=== PATIENT | male | born 1960 ===

== ENCOUNTER 2024-08-29 14:06 | Outpatient (CLI) | payer MEDICAID, SELFPAY ==
--- OUTSIDE RECORDS SUMMARY | 2024-08-29 14:09 | XMS_ITS | Continuity of Care Document ---
Author Organization [facility] Address [address] [place] [address] Care Team Providers Care Curriculum Coach Name Role Phone Astrid Mcdonough Primary Care Physician Encounter [facility] Date(s): 12/07/23 - 12/07/23 [facility] [address] [place] [address] Encounter Diagnosis Atrial fibrillation(Discharge Diagnosis) - 12/07/23 Hypertension(Discharge Diagnosis) - 12/07/23 Hyperlipidemia(Discharge Diagnosis) - 12/07/23 Paroxysmal atrial fibrillation(Final) - Essential (primary) hypertension(Final) - Hyperlipidemia, unspecified(Final) - Discharge Disposition: Home or Self Care Attending Physician: Anat Cross NP Allergies, Adverse Reactions, Alerts No Known Medication Allergies Substance Reaction Severity Status allopurinol Skin rash Unknown Active ketoconazole 1 Skin rash Unknown Active 1patient states the rash was from allopurinol not this, and he has used it without issue.%0ALast modified by Alysia Alcaraz 12-24-2020, 08:31 Assessment and Plan Extracted from: Title:Cardiology Clinic - Office Visit Note Auth or:Anat Cross NP Date:12/07/23 Atrial fibrillation??I48.91 Actions: COMPLETED - [id number] Office/Outpatient Visit - Established Patient, Level 3 (20-29 min)., 12/07/23 9:02:00 EST, Atrial fibrillation COMPLETED - Follow-Up Appointment Request [facility], 12/07/23 9:20:00 EST, In Approximately, [facility], 12/07/23 9:20:00 EST FUTURE - Follow-Up Appointment Request [facility], *Est. 03/08/24 +/- 21 days, Future Order, In Approximately, [facility] COMPLETED - Referral Management, Medical Service: Cardiology, Reason: To for Tikosyn admission as soon as can please. Symptomatic., Start: 12/07/23 ?? Hyperlipidemia??E78.5 ?? Hypertension??I10 ?? Additional Actions: ORDERED - atorvastatin, 40 mg = 1 tab, Oral, Daily, # 90 tab, 3 Refill(s), Pharmacy: [id number], 179.07, cm, 12/07/23 9:04:00 EST, Height, 117.75, kg, 12/07/23 9:12:00 EST, Weight Dosing DISCONTINUED - atorvastatin, 20 mg = 1 tab, Oral, Daily, # 90 tab, 2 Refill(s), Pharmacy: [facility] Future Appointments Future Scheduled Tests Radiology* XR Spine Lumbosacral 2 or 3 Views 12/25/22 Immunizations Given and Recorded Vaccine Date Status Refusal Reason influenza virus vaccine, inactivated 1 08/22/22 Gi jakob influenza virus vaccine, inactivated 07/08/13 Avery rded SARS-CoV-2 (COVID-19) mRNA-1273 vaccine 02/01/21 R ecorded SARS-CoV-2 (COVID-19) mRNA-1273 vaccine 01/07/21 R ecorded tetanus/diphth/pertuss (Tdap) adult/adol 06/21/12 Recorded Not Given Vaccine Date Status Refusal Reason zoster vaccine, inactivated 2 04/19/19 Not Given Patient Refuses 1Result Comment: verified by [facility]. 2Result Comment: Patient Declined Medications AAA - Misc Prescription 90 EA, TAKE ONE TABLET BY MOUTH EVERY DAY, 0 Refill(s) Start Date: 03/19/23 Status: Ordered atorvastatin 40 mg oral tablet 40 mg = 1 tab, Oral, Daily, # 90 tab, 3 Refill(s), Pharmacy: [facility], 179.07, cm, 12/07/23 9:04:00 EST, Height, 117.75, kg, 12/07/23 9:12:00 EST, Weight Dosing Start Date: 12/07/23 Status: Ordered Combivent Respimat CFC free 20 mcg-100 mcg/inh inhalation aerosol 1 puffs, Inhale, As Directed, # 4 g, 0 Refill(s) Start Date: 03/19/23 Status: Ordered DULoxetine 30 mg oral delayed release capsule 30 mg = 1 cap, Oral, BID, # 180 cap, 3 Refill(s), Pharmacy: [facility] Start Date: 07/11/23 Stop Date: 07/05/24 Status: Ordered Eliquis 5 mg oral tablet 5 mg = 1 tab, Oral, BID, # 180 tab, 3 Refill(s), Pharmacy: [facility], 180.34, cm, 07/23/23 9:23:00 EDT, Height, 117.93, kg, 09/08/23 10:25:00 EST, Weight Dosing Start Date: 10/22/23 Stop Date: 10/16/24 Status: Ordered ergocalciferol 1.25 mg (50,000 intl units) oral capsule 50,000 IntlUnit = 1 cap, Oral, every 2 wk, as directed, # 7 cap, 3 Refill(s), Pharmacy: [facility] Start Date: 07/22/22 Stop Date: 07/17/23 Status: Ordered febuxostat 40 mg oral tablet 1 tab, Oral, Daily, # 90 tab, 3 Refill(s), Pharmacy: [facility], 180.34, cm, 07/23/23 9:23:00 EDT, Height, 117.93, kg, 09/08/23 10:25:00 EST, Weight Dosing Start Date: 09/11/23 Stop Date: 09/05/24 Status: Ordered HYDROcodone-acetaminophen 10 mg-325 mg oral tablet 1 tab, Oral, every 4 hr, PRN as needed for pain, Take 1 tablet every 4-6 hours as needed for severepain. Recommendations to decrease to 5 tablets daily for upcoming wean., # 168 tab, 0 Refill(s), Pharmacy: [facility], 180.34, cm, 07/23/23 9:23:00 EDT, Height, 117.93, kg, 09/08/23 10:25:00 EST, Weight Dosing Start Date: 10/22/23 Stop Date: 11/19/23 Status: Ordered HYDROcodone-acetaminophen 10 mg-325 mg oral tablet 1 tab, Oral, every 4 hr, PRN as needed for pain, Take 1 tablet every 4-6 hours as needed for severepain. Minimize use to prepare for weaning, # 152 tab, 0 Refill(s), Pharmacy: [facility], 179.07, cm, 11/18/23 11:12:00 EST, Height, 119.65, kg, 12/01/23 9:53:00 EST, Weight Dosing Start Date: 12/01/23 Stop Date: 12/29/23 Status: Ordered HYDROcodone-acetaminophen 10 mg-325 mg oral tablet 1 tab, Oral, every 4 hr, PRN as needed for pain, Take 1 tablet every 4-6 hours as needed for severepain. Minimize use to prepare for weaning, # 152 tab, 0 Refill(s), Pharmacy: [facility], 179.07, cm, 11/18/23 11:12:00 EST, Height, 119.65, kg, 12/01/23 9:53:00 EST, Weight Dosing Start Date: 12/01/23 Stop Date: 12/29/23 Status: Ordered HYDROcodone-acetaminophen 10 mg-325 mg oral tablet 1 tab, Oral, every 4 hr, Take 1 tablet every 4-6 hours as needed for severe pain. Minimize use to prepare for weaning, # 152 tab, 0 Refill(s), Pharmacy: [facility], 179.07, cm, 11/18/23 11:12:00 EST, Height, 119.65, kg, 12/01/23 9:53:00 EST, Weight Dosing Start Date: 12/01/23 Stop Date: 12/29/23 Status: Ordered ketoconazole 2% topical cream 1 ignacio, Topical, BID, to affected area. Anti-fungal for yeast infection., # 60 g, 0 Refill(s), Pharmacy: [facility] Start Date: 08/22/22 Stop Date: 09/19/22 Status: Ordered losartan 50 mg oral tablet 50 mg = 1 tab, Oral, Daily, # 90 tab, 2 Refill(s), Pharmacy: [facility] Start Date: 03/19/23 Status: Ordered Metoprolol Succinate ER 50 mg oral tablet, extended release 50 mg = 1 tab, Oral, Daily, # 90 tab, 3 Refill(s), Pharmacy: [facility], 180.34, cm, 07/23/23 9:23:00 EDT, Height, 117.93, kg, 09/08/23 10:25:00 EST, Weight Dosing Start Date: 09/14/23 Stop Date: 09/08/24 Status: Ordered Narcan 4 mg/0.1 mL nasal spray 1 sprays, Nasal, Once, PRN other (see comment), may repeat every 2 to 3 minutes until patient responds, # 2 EA, 0 Refill(s), Pharmacy: [facility] Start Date: 09/25/22 Status: Ordered sildenafil 100 mg oral tablet 1 tab, Oral, Daily, # 10 tab, 3 Refill(s), Pharmacy: [facility], 180.34, cm, 07/23/23 9:23:00 EDT, Height Start Date: 08/26/23 Stop Date: 12/24/23 Status: Ordered traZODone 50 mg oral tablet 1 tab, Oral, every night at bedtime, # 90 tab, 3 Refill(s), Pharmacy: [facility] Start Date: 03/19/23 Stop Date: 03/13/24 Status: Ordered triamcinolone 0.025% topical cream 1 ignacio, Topical, BID, PRN itching/rash, apply a thin film to affected area Steroid cream for itchingand redness., # 60 g, 0 Refill(s), Pharmacy: [facility] Start Date: 08/22/22 Stop Date: 09/05/22 Status: Ordered zolpidem 10 mg oral tablet 10 mg = 1 tab, Oral, every night at bedtime, swallow whole do not crush or chew, # 28 tab, 2 Refill(s), Pharmacy: [id number], 179.07, cm, 11/18/23 11:12:00 EST, Height, 119.65, kg, 12/01/23 9:53:00 EST, Weight Dosing Start Date: 12/01/23 Stop Date: 02/23/24 Status: Ordered Problem List Condition Confirmation Course Effective Dates Status Health Status Informant Adenomatous polyp of colon Confirmed Active Arthritis Confirmed 03/29/21 Active Atrial fibrillation Confirmed Active Benign neoplasm of cerebral meninges Confirmed Active Bilateral shoulder joint pain Confirmed 05/02/21 Active Carpal tunnel syndrome Confirmed Active Degeneration of cervical intervertebral disc Confirmed Active Chronic gouty arthritis Confirmed 10/19/18 Active Chronic pain Confirmed Active Claustrophobia Confirmed 04/19/19 Active Diverticulosis of colon Confirmed 03/17/19 Active Dupuytren's contracture Confirmed 10/11/20 Active Herniation of lumbar intervertebral disc with sciatica Confirmed Active Hyperglycemia Confirmed 12/24/18 Active Hyperlipidemia Confirmed Active Hypertensive disorder Confirmed Active Nocturnal hypoxemia Confirmed Active Insomnia Confirmed Active Insulin resistance Confirmed 10/11/20 Active Lyme disease Confirmed Active Microscopic hematuria Confirmed 01/03/21 Active Moderate persistent asthma Confirmed Active Muscle pain Confirmed Active Myalgia/myositis - multiple Confirmed 10/11/20 Active Obstructive sleep apnea syndrome Confirmed Active Obstructive sleep apnea Confirmed Active Pain of left hip joint Confirmed 11/14/19 Active Medication management Confirmed Active Psychophysiologic insomnia Confirmed 07/12/18 Active Psychophysiological insomnia Confirmed Active Psychophysiologic insomnia Confirmed Active Sciatica Confirmed Active Tinea corporis Confirmed Active Transient cerebral ischemia Confirmed Active Vitamin D deficiency Confirmed Active Procedures Procedure Date Related Diagnosis Body Site Status Injection 1 11/07/20 Completed Total replacement of left hip joint 04/11/20 Completed Hemilaminectomy 2 10/27/19 Complet ed Lumbar microdiscectomy 10/27/19 Co mpleted Colonoscopy 3 03/08/19 Completed Colonoscopy 10/11/15 Completed Closed reduction and percuta neous pinning-left proximal phalanx fracture 02/07/13 Completed Carpal tunnel release 10/11/11 Com pleted C5-C6 and C6-C7 diskectomy and fusion 12/24/08 Completed Carpal tunnel release 10/11/08 Com pleted ORIF - Open reduction and in ternal fixation of fracture 4 Completed 1Xiaflex injection right ring finger with manipulation next day for Dupuytren's contracture. [id number] 3diverticulosis of colon; Repeat 5 years. 11/19/2015 one descending colon sessile polyp and diverticular changes, otherwise normal exam 4ORIF right femur-05/31/2007. ORIF right ankle Vital Signs Most recent to oldest [Reference Range]: 1 Peripheral Pulse Rate [60-100 bpm] 86 bp m (12/07/23 9:04 AM) Blood Pressure [90-140/60-90 mmHg] 138/6 2mmHg (12/07/23 9:04 AM) Mean Arterial Pressure, Cuff [65-140 mmH g] 87 mmHg (12/07/23 9:04 AM) Weight 117.75 kg (12/07/23 9:04 AM) Weight Measured (lbs) 259.594 lb (12/07/23 9:04 AM) Weight Dosing 117.750 kg (12/07/23 9:04 AM) Height 179.07 cm (12/07/23 9:04 AM) Height/Length Measured (inches) 70.5 inc h (12/07/23 9:04 AM) BSA Measured 2.42 m2 (12/07/23 9:04 AM) Body Mass Index 36.72 kg/m2 (12/07/23 9:04 AM) Social History Social History Type Response Tobacco Never tobacco user T obacco Use:. Sex Male Physician Outpatient Note * Anat Cross [employer]OL OFFICER: PERFORM Event Display: Office Clinic Note Physician Authored Date: [id number] BRENDA JAVED :1960 Age:63 years Sex:Male Visit Date:12/07/2023 Primary Care Physician: Astrid Mcdonough MD History of Present Illness Cardiac Problems: 1.Chronic Atrial fibrillation 2.Hypertension-atorvastatin 20mg, Eliquis 5mg BID, losartan 50mg, metoprolol succinate 75mg 3.Hyperlipidemia 4.TYRON ?? This is a 63-year-old gentleman that I last saw in the office on 11/04/2019 for??for hypertensionand atrial fibrillation.?? He was symptomatic with lightheadedness and palpitations??daily so we discussed getting him back into a sinus rhythm??potentially with an antiarrhythmic such as flecainide so we ordered a stress and echo??to rule out coronary artery disease.?? Both tests were reassuring.?? However at her last appointment??he reported 6 out of 10??nonradiating chest pain??and dyspnea when he mixed up his??metoprolol dose and took less than was prescribed??for??3 days.?? We wanted to rule out coronary artery disease??and not give him flecainide??until we are absolutely sure??this was ruled out so we ordered a left heart catheterization at [facility]. ??He is here today??to follow-up??on his left heart catheterization??and potentially start flecainide if this does not show coronary artery disease, or??speak about sotalol or Tikosyn. Left heart catheterization at [facility].?? Left main free of disease, LAD with 40% stenosis, mild diffuse in diagonal 1, mild diffuse in left circumflex, mild diffuse in RCA.?? Nonobstructive coronary artery disease, elevated left ventricular end-diastolic pressure. ?? He states that he has been extremely symptomatic in regards to his atrial fibrillation.?He states I feel A-fib a lot, I feel blood??going to my head when I stand up??and I will just be pulsating??and then I will get dizzy for a little bit.' ??He denies chest pain, syncope,??PND, and edema. ??He states that his breathing is typically okay??unless he has to walk up stairs. ??He does get shortof breath going up the stairs, and this can be every single time or it can be??every other, but he is??experiencing dyspnea on exertion.?? He does continue to??report that about once a day he will beshort of breath with only doing activity around the house,??he will be walking around and noticed that he is breathing a little bit harder. ?? He is mainly walking daily??to the store or around his home for about 10 minutes of uninterrupted time. ??During this exercise he denies signs of ischemia such as chest pain or shortness of breath.?? He is not routinely taking his blood pressure at home but does have an arm blood pressure cuff??he can use.?? Typically at his other doctors appointments he is averaging in the 120 systolic. Review of Systems A complete review of systems is negative other than as noted in the history of present illness. Physical Exam Vitals & Measurements HR:??86??(Peripheral)?? BP:??138/62?? SpO2:??94%?? HT:??179.07??cm?? WT:??117.75??kg?? BMI:??36.72?? BSA:??2.42?? HEENT: Normocephalic, atraumatic Respirations: Clear to auscultation bilaterally with no wheezes rubs or rhonchi Cardiac: Regular rate and rhythm, normal S1, S2, no murmurs gallops or rubs Abdomen: Nontender nondistended normal active bowel sounds Extremities: 2+ dorsalis pedis pulses bilaterally with no significant edema Medical Decision Making [place] [facility] [place] atrial fibrillation [place] Eliquis, poorly controlled of 100 bpm, hypertension on metoprolol, asymptomatic with 4 METS of activity, obstructive sleep apnea.?? Recommend increase metoprolol to 50 mg daily no indication for statin or an aspirin, felt atrial fibrillation likelyrelated to his history of hypertension, if symptoms or evidence of volume overload an echocardiogram would be recommended. 05/08/2023.?? Zio: Atrial fibrillation (90% burden, longest continuous period of 12 days) with rare PACs and rare PVCs over 14-day monitoring period.?? There were no significant arrhythmias other thanAF.?? Average heart rate with AF was less than 100 bpm, with minimal variability.?? Symptoms correlated with continuous AF at normal average rate.?? Paroxysmal but predominant AF, with adequate rate control. 07/21/2023:EKG:Atrial fibrillation with ventricular rate of 81 bpm, IVCD with QRS of 157 ms.?? Minimal ST depression in anterolateral leads. 08/18/2023.?? Treadmill stress test:Ambulated for 3 minutes and 56 seconds, [address] changes, indeterminate stress test, deconditioned with borderline [address] depression in anterior leads.?? Consider alternate stress modality such as Lexiscan nuclear stress test. 09/01/2023.?? Echocardiogram:EF of 65% with normal wall motion, diastolic indices difficult to interpret with A-fib, RA mildly dilated, LA normal, no significant valve disease, PAP normal at 28 mmHg 10/28/2023: Lexiscan:Normal myocardial perfusion with no evidence of ischemia or prior infarct. Normal LV function with normal wall motion and ejection fraction greater than 60%. 11/04/2023: EKG:Atrial fibrillation with ventricular rate of 102 bpm, IVCD with QRS duration of 117 ms 11/20/2023.?? Left heart catheterization at [facility].?? Left main free of disease, LAD with 40% stenosis, mild diffuse in diagonal 1, mild diffuse in left circumflex, mild diffuse in RCA.?? Nonobstructive coronary artery disease, elevated left ventricular end-diastolic pressure. 12/07/2023: EKG:Atrial fibrillation with ventricular rate of 105 bpm. ?? 63-year-old gentleman with paroxysmal atrial fibrillation ? Atrial fibrillation:??He is again in atrial fibrillation??in the office today, but he is properly anticoagulated with Eliquis 5 mg twice daily.?? It sounds like he is extremely symptomatic??with dizziness??and occasionally he will feel his??atrial fibrillation with palpitations.?? He did have an echocardiogram and Lexiscan stress test that were reassuring??but continuing 6 out of 10 chest painat our last visit. ??We went over his left heart catheterization that was performed on 11/20/2023 which showed nonobstructive coronary artery disease but elevated left ventricular end-diastolic pressure.?? It is recommended??for him to be back in normal rhythm, considering he is extremely symptomatic??we are referring him to [facility] for a [facility] admission. ??We went over this??admission in length today??and potential??options of an ablation or Watchman procedure if the Tikosyn admission??fails.?? I am also increasing his atorvastatin from 20 mg to 40 mg for a more cardioprotective medicationregimen considering he does have evidence??of stenosis in his LAD.?? I encouraged him to be seen inthe emergency room for any??chest pain moving forward. ? Hypertension:??He is elevated here in the office today sounds like he is well-controlled??at??other appointments. ??He does not take his blood pressure at home but does have an arm blood pressure cuff that he will??start to monitor??at home. ??I advised him to get me??averages of his blood pressure readings over the next couple of weeks, and if he is averaging over 130 systolic we should step him to increase??antihypertensives.?? I will see him again in 3 months??to check in on how he is doing, he knows to call with any questions or concerns in the meantime.?? Hopefully he will have had his Tikosyn admission at [facility]??by then.?? It was a pleasure to see Brenda. Clinic Assessment/Plan Atrial fibrillation??I48.91 Actions: COMPLETED - 79134 Office/Outpatient Visit - Established Patient, Level 3 (20-29 min)., 12/07/23 9:02:00 EST, Atrial fibrillation COMPLETED - Follow-Up Appointment Request [facility], 12/07/23 9:20:00 EST, In [facility], [facility], 12/07/23 9:20:00 EST FUTURE - Follow-Up Appointment Request [facility], *Est. 03/08/24 +/- 21 days, Future Order, In Approximately, [facility] COMPLETED - Referral Management, Medical Service: Cardiology, Reason: To for Tikosyn admission as soon as can please. Symptomatic., Start: 12/07/23 ?? Hyperlipidemia??E78.5 ?? Hypertension??I10 ?? Additional Actions: ORDERED - atorvastatin, 40 mg = 1 tab, Oral, Daily, # 90 tab, 3 Refill(s), Pharmacy: [id number], 179.07, cm, 12/07/23 9:04:00 EST, Height, 117.75, kg, 12/07/23 9:12:00 EST, Weight Dosing DISCONTINUED - atorvastatin, 20 mg = 1 tab, Oral, Daily, # 90 tab, 2 Refill(s), Pharmacy: [facility] Problem List/Past Medical History Ongoing Adenomatous polyp of colon Arthritis Atrial fibrillation Benign neoplasm of cerebral meninges Bilateral shoulder joint pain Carpal tunnel syndrome Chronic gouty arthritis Chronic pain Claustrophobia Degeneration of cervical intervertebral disc Diverticulosis of colon Dupuytren's contracture Herniation of lumbar intervertebral disc with sciatica Hyperglycemia Hyperlipidemia Hypertensive disorder Insomnia Insulin resistance Lyme disease Medication management Microscopic hematuria Moderate persistent asthma Muscle pain Myalgia/myositis - multiple Nocturnal hypoxemia Obstructive sleep apnea Obstructive sleep apnea syndrome Pain of left hip joint Psychophysiologic insomnia Psychophysiologic insomnia Psychophysiological insomnia Sciatica Tinea corporis Transient cerebral ischemia Vitamin D deficiency Historical Screening for malignant neoplasm of prostate Procedure/Surgical History ???Injection (11/08/2020)???Total replacement of left hip joint (04/12/2020)???Hemilaminectomy (10/28/2019)???Lumbar microdiscectomy (10/28/2019)???Colonoscopy (03/09/2019)???Colonoscopy (10/12/2015)???Closed reduction and percutaneous pinning-left proximal phalanx fracture (02/08/2013)???Carpal tunnel release (10/12/2011)???C5-C6 and C6-C7 diskectomy and fusion (12/25/2008)???Carpal tunnel release (10/12/2008)???ORIF - Open reduction and internal fixation of fracture Medications What How Much When Why Instructions Changed atorvastatin (atorvastatin 40 mg oral tablet) 1 tab Oral (given by mouth) Every day Pickup at [facility] Unchanged apixaban (Eliquis 5 mg oral tablet) 1 tab Oral (given by mouth) 2 times a day Duration: 90 Days Unchanged DULoxetine (DULoxetine 30 mg oral delayed release capsule) 1 Capsules Oral (given by mouth) 2 times a day Duration: 90 Days Unchanged ergocalciferol (ergocalciferol 1.25 mg (50,000 intl units) oral capsule) 1 Capsules Oral (given by mouth) Every other week Duration: 90 Days as directed ?? Unchanged febuxostat (febuxostat 40 mg oral tablet) 1 tab Oral (given by mouth) Every day Duration: 90 Days Unchanged HYDROcodone-acetaminophen (HYDROcodone-acetaminophen 10 mg-325 mg oral tablet) 1 tab Oral (given by mouth) Every 4 hours as needed for as needed for pain Duration: 28 Days Take 1 tablet every 4-6 hours as needed for severe pain. Recommendations to decrease to 5 tablets daily for upcoming wean. ?? Unchanged HYDROcodone-acetaminophen (HYDROcodone-acetaminophen 10 mg-325 mg oral tablet) 1 tab Oral (given by mouth) Every 4 hours as needed for as needed for pain Degeneration of cervical intervertebral disc Chronic pain Duration: 28 Days Take 1 tablet every 4-6 hours as needed for severe pain. ??Minimize use to prepare for weaning ?? Unchanged HYDROcodone-acetaminophen (HYDROcodone-acetaminophen 10 mg-325 mg oral tablet) 1 tab Oral (given by mouth) Every 4 hours as needed for as needed for pain Chronic pain Degeneration of cervical intervertebral disc Duration: 28 Days Take 1 tablet every 4-6 hours as needed for severe pain. ??Minimize use to prepare for weaning ?? Unchanged HYDROcodone-acetaminophen (HYDROcodone-acetaminophen 10 mg-325 mg oral tablet) 1 tab Oral (given by mouth) Every 4 hours Duration: 28 Days Take 1 tablet every 4-6 hours as needed for severe pain. ??Minimize use to prepare for weaning ?? Unchanged ipratropium-albuterol (Combivent Respimat CFC free 20 mcg-100 mcg/ inh inhalation aerosol) 1 Puffs Inhale (breathe in) As Directed Unchanged ketoconazole topical (ketoconazole 2% topical cream) 1 Application Topical (on the skin) 2 times a day Duration: 28 Days to affected area. ??Anti-fungal for yeast infection. ?? Unchanged losartan (losartan 50 mg oral tablet) 1 tab Oral (given by mouth) Every day Long-term use of high-risk medication Encounter for chronic pain management Arthritis Herniation of lumbar intervertebral disc with sciatica Degeneration of cervical intervertebral disc Unchanged metoprolol (Metoprolol Succinate ER 50 mg oral tablet, extended release) 1 tab Oral (given by mouth) Every day Hypertensive disorder Duration: 90 Days Unchanged naloxone (Narcan 4 mg/ 0.1 mL nasal spray) 1 Sprays Nasal (into the nose) Once as needed for other (see comment) Respiratory suppression may repeat every 2 to 3 minutes until patient responds ?? Unchanged Other Prescription ([facility] [place] 90 EA, TAKE ONE TABLET BY MOUTH EVERY DAY ?? Unchanged sildenafil (sildenafil 100 mg oral tablet) 1 tab Oral (given by mouth) Every day Duration: 30 Days Unchanged traZODone (traZODone 50 mg oral tablet) 1 tab Oral (given by mouth) Every night at bedtime Duration: 90 Days Unchanged triamcinolone topical (triamcinolone 0.025% topical cream) 1 Application Topical (on the skin) 2 times a day as needed for itching/rash Duration: 14 Days apply a thin film to affected area Steroid cream for itching and redness. ?? Unchanged zolpidem (zolpidem 10 mg oral tablet) 1 tab Oral (given by mouth) Every night at bedtime Duration: 28 Days swallow whole do not crush or chew ?? Pharmacy Information [facility]: [address], [place] [id number] [phone] Allergies No Known Medication Allergies allopurinol??(Skin rash) ketoconazole??(Skin rash) Social History Alcohol Current, Liquor, Daily Electronic Cigarette/Vaping Electronic Cigarette Use: Never. Home/Environment Living situation: Home/Independent. Nutrition/Health Caffeine intake amount: diet coke 1 can daily. Substance Use Current, Marijuana, Daily Tobacco Never tobacco user Tobacco Use:. Family History Other: Father. Immunizations Vaccine Date Status influenza virus vaccine, inactivated 08/22/2022 Given Comments : verified by [facility]. SARS-CoV-2 (COVID-19) mRNA-1273 vaccine 02/01/2021 Recorded SARS-CoV-2 (COVID-19) mRNA-1273 vaccine 01/07/2021 Recorded zoster vaccine, inactivated - Not Given Comments : Patient Refuses Patient Declined influenza virus vaccine, inactivated 07/08/2013 Recorded tetanus/diphth/pertuss (Tdap) adult/adol 06/21/2012 Recorded Electronically Signed on 12/07/23 09:50 AM Anat Cross NP Patient Care team information Care Team Personnel Name: Astrid Mcdonough MD Position: Physician Member Role: Informed Provider Address: Address: [address] [place] [address] [place] [address] Care Team Related Persons Name: VADIM COSTA
--- OUTSIDE RECORDS SUMMARY | 2024-08-29 14:09 | XMS_ITS | Continuity of Care Document ---
Author Organization [facility] Address [address] [place] [address] Care Team Providers Care Binding Cutter Synthetic Cloth Name Role Phone Brad De Guzman Primary Care Physician Encounter [facility] Date(s): 08/08/24 - 08/08/[address] [address] Encounter Diagnosis Opioid contract exists(Discharge Diagnosis) - 08/08/24 Discharge Disposition: Home or Self Care Attending Physician: Brad De Guzman MD Admitting Physician: Brad De Guzman MD Allergies, Adverse Reactions, Alerts No Known Medication Allergies Substance Criticality Severity Reaction Reaction Severity Status allopurinol Unable to assess criticality Unknown Skin rash Active ketoconazole 1 Unable to assess criticality Unknown Skin rash Active 1patient states the rash was from allopurinol not this, and he has used it without issue.%0ALast modified by Alysia Alcaraz 12-24-2020, 08:31 Assessment and Plan Future Appointments Diagnostic Tests Pending * Opioids and Metabolites Confirmation Panel, Urine CTOX 08/08/24 Immunizations Given and Recorded Vaccine Date Status [...] by CHANORN. 2Result Comment: Patient Declined Medications atorvastatin 40 mg oral tablet 40 mg = 1 tab, Oral, Daily, # 90 tab, 3 Refill(s), Pharmacy: [facility], 179.07, cm, 12/07/23 9:04:00 EST, Height, 117.75, kg, 12/07/23 9:12:00 EST, Weight Dosing Start Date: 12/07/23 Status: Ordered Combivent Respimat CFC free 20 mcg-100 mcg/inh inhalation aerosol 1 puffs, Inhale, As Directed, # 1 EA, 5 Refill(s), Pharmacy: [facility], 180.34, cm, 03/03/24 9:42:00 EDT, Height, 117, kg, 08/08/24 9:31:00 EDT, Weight Dosing Start Date: 08/08/24 Status: Ordered DULoxetine 30 mg oral delayed release capsule 30 mg = 1 cap, Oral, BID, # 180 cap, 3 Refill(s), Pharmacy: [facility], 180.34, cm, 249:42:00 EDT, Height, 114.05, kg, 05/17/24 9:29:00 EDT, Weight Dosing Start Date: 06/08/24 Stop Date: 06/03/25 Status: Ordered Eliquis 5 mg oral tablet 5 mg = 1 tab, Oral, BID, # 180 tab, 3 Refill(s), Pharmacy: [facility], 180.34, cm, 07/23/23 9:23:00 EDT, Height, 117.93, kg, 09/08/23 10:25:00 EST, Weight Dosing Start Date: 10/22/23 Stop Date: 10/16/24 Status: Ordered ergocalciferol 1.25 mg (50,000 intl units) oral capsule 50,000 IntlUnit = 1 cap, Oral, every 2 wk, as directed, # 7 cap, 3 Refill(s), Pharmacy: [facility] Start Date: 07/22/22 Stop Date: 07/17/23 Status: Ordered erythromycin 0.5% ophthalmic ointment 0 Refill(s) Start Date: 02/24/24 Status: Ordered febuxostat 40 mg oral tablet 1 tab, Oral, Daily, # 90 tab, 3 Refill(s), Pharmacy: [facility], 180.34, cm, 07/23/23 9:23:00 EDT, Height, 117.93, kg, 09/08/23 10:25:00 EST, Weight Dosing Start Date: 09/11/23 Stop Date: 09/05/24 Status: Ordered HYDROcodone-acetaminophen 10 mg-325 mg oral tablet 1 tab, Oral, every 4 hr, PRN as needed for pain, Take 1 tablet every 4-6 hours as needed for severepain. Recommendations to decrease to 5 tablets daily for upcoming wean., # 124 tab, 0 Refill(s), Pharmacy: [facility], 180.34, cm, 03/03/24 9:42:00 EDT, Height, 117, kg, 08/08/24 9:31:00 EDT, Weight Dosing Start Date: 08/08/24 Stop Date: 09/05/24 Status: Ordered HYDROcodone-acetaminophen 10 mg-325 mg oral tablet 1 tab, Oral, every 4 hr, PRN as needed for pain, Take 1 tablet every 6 hours as needed for severe pain. Minimize use to prepare for weaning, # 101 tab, 0 Refill(s), Pharmacy: [facility], 180.34, cm, 03/03/24 9:42:00 EDT, Height, 117, kg, 08/08/24 9:31:00 EDT, Weight Dosing Start Date: 08/08/24 Stop Date: 09/05/24 Status: Ordered HYDROcodone-acetaminophen 10 mg-325 mg oral tablet 1 tab, Oral, every 4 hr, Take 1 tablet every 6 hours as needed for severe pain. Minimize use to prepare for weaning, # 101 tab, 0 Refill(s), Pharmacy: [facility], 180.34, cm, 03/03/24 9:42:00 EDT, Height, 117, kg, 08/08/24 9:31:00 EDT, Weight Dosing Start Date: 08/08/24 Stop Date: 09/05/24 Status: Ordered HYDROcodone-acetaminophen 10 mg-325 mg oral tablet 1 tab, Oral, every 4 hr, PRN as needed for pain, Take 1 tablet every 6 hours as needed for severe pain. Minimize use to prepare for weaning, # 101 tab, 0 Refill(s), Pharmacy: [facility], 180.34, cm, 03/03/24 9:42:00 EDT, Height, 117, kg, 08/08/24 9:31:00 EDT, Weight Dosing Start Date: 08/08/24 Stop Date: 09/05/24 Status: Ordered ketoconazole 2% topical cream 1 ignacio, Topical, BID, to affected area. Anti-fungal for yeast infection., # 60 g, 0 Refill(s), Pharmacy: [facility] Start Date: 08/22/22 Stop Date: 09/19/22 Status: Ordered losartan 50 mg oral tablet 50 mg = 1 tab, Oral, Daily, # 90 tab, 3 Refill(s), Pharmacy: [facility], 179.07, cm, 12/07/23 9:04:00 EST, Height, 117.75, kg, 12/07/23 9:12:00 EST, Weight Dosing Start Date: 12/11/23 Status: Ordered loteprednol 0.5% ophthalmic gel 0 Refill(s) Start Date: 03/03/24 Status: Ordered Metoprolol Succinate ER 50 mg oral tablet, extended release 50 mg = 1 tab, Oral, Daily, # 90 tab, 3 Refill(s), Pharmacy: [facility], 180.34, cm, 07/23/23 9:23:00 EDT, Height, 117.93, kg, 09/08/23 10:25:00 EST, Weight Dosing Start Date: 09/14/23 Stop Date: 09/08/24 Status: Ordered Narcan 4 mg/0.1 mL nasal spray 1 sprays, Nasal, Once, PRN other (see comment), may repeat every 2 to 3 minutes until patient responds, # 2 EA, 0 Refill(s), Pharmacy: [facility] Start Date: 09/25/22 Status: Ordered sildenafil 100 mg oral tablet 1 tab, Oral, Daily, # 10 tab, 1 Refill(s), Pharmacy: [facility], 180.34, cm, 03/03/24 9:42:00 EDT, Height, 114.05, kg, 05/17/24 9:29:00 EDT, Weight Dosing Start Date: 07/04/24 Status: Ordered Tikosyn 500 mcg oral capsule 500 mcg = 1 cap, Oral, BID, # 180 cap, 0 Refill(s) Start Date: 05/17/24 Status: Ordered traZODone 50 mg oral tablet 1 tab, Oral, every night at bedtime, # 90 tab, 3 Refill(s), Pharmacy: [facility], 180.34, cm, 03/03/24 9:42:00 EDT, Height, 117.75, kg, 03/03/24 9:55:00 EDT, Weight Dosing Start Date: 03/24/24 Stop Date: 03/19/25 Status: Ordered triamcinolone 0.025% topical cream 1 ignacio, Topical, BID, PRN itching/rash, apply a thin film to affected area Steroid cream for itchingand redness., # 60 g, 0 Refill(s), Pharmacy: [facility] Start Date: 08/22/22 Stop Date: 09/05/22 Status: Ordered zolpidem 10 mg oral tablet 10 mg = 1 tab, Oral, every night at bedtime, swallow whole do not crush or chew, # 28 tab, 2 Refill(s), Pharmacy: [facility], 180.34, cm, 03/03/24 9:42:00 EDT, Height, 117, kg, 08/08/24 9:31:00 EDT, Weight Dosing Start Date: 08/08/24 Stop Date: 10/31/24 Status: Ordered Problem List Condition Confirmation Course Effective Dates Status Health Status Informant Adenomatous polyp of colon Confirmed Active Arthritis Confirmed 03/29/21 Active Atrial fibrillation Confirmed Active Benign neoplasm of cerebral meninges Confirmed Active Bilateral shoulder joint pain Confirmed 05/02/21 Active Obesity (BMI 30-39.9) Confirmed Active Carpal tunnel syndrome Confirmed Active Degeneration of cervical intervertebral disc Confirmed Active Chronic gouty arthritis Confirmed 10/19/18 Active CKD stage 3a, GFR 45-59 ml/min Confirmed Active Chronic pain Confirmed Active Claustrophobia Confirmed 04/19/19 Active Alcohol dependence, daily use Confirmed Active Depression Confirmed Active Diverticulosis of colon Confirmed 03/17/19 Active Dupuytren's contracture Confirmed 10/11/20 Active ED (erectile dysfunction) Confirmed Active Herniation of lumbar intervertebral disc with sciatica Confirmed Active Hyperglycemia Confirmed 12/24/18 Active Hyperlipidemia Confirmed Active Hypertensive disorder Confirmed Active Nocturnal hypoxemia Confirmed Active Insomnia Confirmed Active Insulin resistance Confirmed 10/11/20 Active Lyme disease Confirmed Active Microscopic hematuria Confirmed 01/03/21 Active Moderate persistent asthma Confirmed Active Muscle pain Confirmed Active Myalgia/myositis - multiple Confirmed 10/11/20 Active Nocturnal enuresis Confirmed Active Obstructive sleep apnea syndrome Confirmed Active Obstructive sleep apnea Confirmed Active Pain of left hip joint Confirmed 11/14/19 Active Medication management Confirmed Active Psychophysiologic insomnia Confirmed 07/12/18 Active Psychophysiological insomnia Confirmed Active Psychophysiologic insomnia Confirmed Active Sciatica Confirmed Active Tinea corporis Confirmed Active Transient cerebral ischemia Confirmed Active Urinary leakage Confirmed Active Vitamin D deficiency Confirmed Active [...] exam 4ORIF right femur-05/31/2007. ORIF right ankle Results Laboratory List Name Date Drug Screen Urine (Drug Screen Urine w/ Reflex) 08/08/24 Most recent to oldest [Reference Range]: 1 U Amph Scrn [Negative] Negative 1 (08/08/24 11:28 AM) U Benzodia Scrn [Negative] Negative (08/08/24 11:28 AM) U Cocaine Scrn [Negative] Negative (08/08/24 11:28 AM) U Amina Scrn [Negative] Negative (08/08/24 11:28 AM) U Opiate Scrn [Negative] Positive *ABN* (08/08/24 11:28 AM) U Oxy Scrn [Negative] Negative (08/08/24 11:28 AM) U PCP Scrn [Negative] Negative (08/08/24 11:28 AM) U THC Scr [Negative] Positive *ABN* (08/08/24 11:28 AM) U Methadone Scr [Negative] Negative (08/08/24 11:28 AM) U Buprenorph Scr [Negative] Negative (08/08/24 11:28 AM) U mAMP Scr [Negative] Negative (08/08/24 11:28 AM) U TCA Scr [Negative] Negative (08/08/24 11:28 AM) 1Interpretive Data: These are unconfirmed screening results, to be used only for medical (i.e. treatment) purposes. These screening results must not be used for non-medical purposes (e.g. employment or legal testing). New method started 04/17/11 Test Name Reference Range (Cut-off) THC Neg (50 ng/mL) PCP Neg (25 ng/mL) TOMMY Neg (150 ng/mL) MET Neg (500 ng/mL OPI Neg (100 ng/mL) AMP Neg (500 ng/mL BZO Neg (150 ng/mL) TCA Neg (300 ng/mL) MTD Neg (200 ng/mL) BAR Neg (200 ng/mL) OXY Neg (100 ng/mL) PPX Neg (300 ng/mL) BUP Neg (10 ng/mL) Social History Social History Type Response Tobacco Never tobacco user T obacco Use:. Sex Male Sex Representation Male (finding) Patient Care team information Care Team Personnel Name: Astrid Mcdonough MD Position: No Access Member Role: Informed Provider Address: [address] [place] [address] [place] [address] Name: Brad De Guzman MD Position: Physician Member Role: Primary Care Physician Address: [address] [address]- [place] Care Team Related Persons Name: VADIM COSTA Insurance Providers Guarantor name: BRENDA JAVED Health Plan Information #: 1 Payer: [employer] [facility] [facility] [employer] Member Number: [id number] Policy Number: NA Health Plan Information #: 2 Payer: [employer] [facility] [employer] Member Number: [id number] Policy Number: NA Health Plan Information #: 3 Payer: [employer] [place] [employer] Member Number: [id number] Policy Number: NA
--- OUTSIDE RECORDS SUMMARY | 2024-08-29 14:09 | XMS_ITS | Continuity of Care Document ---
Author Organization [facility] Address [address] [place] [address] Care Team Providers Care Target Man Name Role Phone Astrid Mcdonough Primary Care Physician Encounter [facility] Date(s): 02/24/24 - 02/24/[address] [address] Encounter Diagnosis Medication management(Discharge Diagnosis) - 02/24/24 Degeneration of cervical intervertebral disc(Discharge Diagnosis) - 02/24/24 Discharge Disposition: Home or Self Care Attending Physician: Burton Tavarez MD Admitting Physician: Burton Tavarez MD Referring Physician: Burton Tavarez MD Allergies, Adverse Reactions, Alerts No Known Medication Allergies Substance Reaction Severity Status allopurinol Skin rash Unknown Active ketoconazole 1 Skin rash Unknown Active 1patient states the rash was from allopurinol not this, and he has used it without issue.%0ALast modified by Alysia Alcaraz 12-24-2020, 08:31 Assessment and Plan Future Appointments Diagnostic Tests Pending * Opioids and Metabolites Confirmation Panel, Urine CTOX 02/24/24 Immunizations Given and Recorded Vaccine Date Status [...] by [facility]. 2Result Comment: Patient Declined Medications [facility] Prescription 90 EA, TAKE ONE TABLET BY MOUTH EVERY DAY, 0 Refill(s) Start Date: 03/19/23 Status: Ordered atorvastatin 40 mg oral tablet 40 mg = 1 tab, Oral, Daily, # 90 tab, 3 Refill(s), Pharmacy: [facility], 179.07, cm, 12/07/23 9:04:00 EST, Height, 117.75, kg, 12/07/23 9:12:00 EST, Weight Dosing Start Date: 12/07/23 Status: Ordered Combivent Respimat CFC free 20 mcg-100 mcg/inh inhalation aerosol 1 puffs, Inhale, As Directed, # 4 g, 0 Refill(s) Start Date: 03/19/23 Status: Ordered DULoxetine 30 mg oral delayed release capsule 30 mg = 1 cap, Oral, BID, # 180 cap, 3 Refill(s), Pharmacy: [facility] Start Date: 07/11/23 Stop Date: 07/05/24 Status: Ordered Eliquis 5 mg oral tablet 5 mg = 1 tab, Oral, BID, # 180 tab, 3 Refill(s), Pharmacy: [facility], 180.34, cm, 07/23/23 9:23:00 EDT, Height, 117.93, kg, 09/08/23 10:25:00 EST, Weight Dosing Start Date: 10/22/23 Stop Date: 10/16/24 Status: Ordered ergocalciferol 1.25 mg (50,000 intl units) oral capsule 50,000 IntlUnit = 1 cap, Oral, every 2 wk, as directed, # 7 cap, 3 Refill(s), Pharmacy: [facility] Start Date: 07/22/22 Stop Date: 07/17/23 Status: Ordered erythromycin 0.5% ophthalmic ointment 0 Refill(s) Start Date: 02/24/24 Status: Ordered febuxostat 40 mg oral tablet 1 tab, Oral, Daily, # 90 tab, 3 Refill(s), Pharmacy: [facility], 180.34, cm, 07/23/23 9:23:00 EDT, Height, 117.93, kg, 09/08/23 10:25:00 EST, Weight Dosing Start Date: 09/11/23 Stop Date: 09/05/24 Status: Ordered HYDROcodone-acetaminophen 10 mg-325 mg oral tablet 1 tab, Oral, every 4 hr, PRN as needed for pain, Take 1 tablet every 4-6 hours as needed for severepain. Recommendations to decrease to 5 tablets daily for upcoming wean., # 137 tab, 0 Refill(s), Pharmacy: [facility], 179, cm, 12/23/23 10:23:00 EDT, Height, 115.55, kg, 02/24/24 9:15:00 EDT,Weight Dosing Start Date: 02/24/24 Stop Date: 03/23/24 Status: Ordered HYDROcodone-acetaminophen 10 mg-325 mg oral tablet 1 tab, Oral, every 4 hr, PRN as needed for pain, Take 1 tablet every 4-6 hours as needed for severepain. Minimize use to prepare for weaning, # 137 tab, 0 Refill(s), Pharmacy: [facility], 179, cm, 12/23/23 10:23:00 EDT, Height, 115.55, kg, 02/24/24 9:15:00 EDT, Weight Dosing Start Date: 02/24/24 Stop Date: 03/23/24 Status: Ordered HYDROcodone-acetaminophen 10 mg-325 mg oral tablet 1 tab, Oral, every 4 hr, PRN as needed for pain, Take 1 tablet every 4-6 hours as needed for severepain. Minimize use to prepare for weaning, # 137 tab, 0 Refill(s), Pharmacy: [facility], 179, cm, 12/23/23 10:23:00 EDT, Height, 115.55, kg, 02/24/24 9:15:00 EDT, Weight Dosing Start Date: 02/24/24 Stop Date: 03/23/24 Status: Ordered HYDROcodone-acetaminophen 10 mg-325 mg oral tablet 1 tab, Oral, every 4 hr, Take 1 tablet every 4-6 hours as needed for severe pain. Minimize use to prepare for weaning, # 152 tab, 0 Refill(s), Pharmacy: [facility], 179.07, cm, 11/18/23 11:12:00 EST, Height, 119.65, kg, 12/01/23 9:53:00 EST, Weight Dosing Start Date: 12/01/23 Stop Date: 12/29/23 Status: Ordered ketoconazole 2% topical cream 1 ignacio, Topical, BID, to affected area. Anti-fungal for yeast infection., # 60 g, 0 Refill(s), Pharmacy: [facility] Start Date: 08/22/22 Stop Date: 09/19/22 Status: Ordered losartan 50 mg oral tablet 50 mg = 1 tab, Oral, Daily, # 90 tab, 3 Refill(s), Pharmacy: [facility], 179.07, cm, 12/07/23 9:04:00 EST, Height, 117.75, kg, 12/07/23 9:12:00 EST, Weight Dosing Start Date: 12/11/23 Status: Ordered Metoprolol Succinate ER 50 mg oral tablet, extended release 50 mg = 1 tab, Oral, Daily, # 90 tab, 3 Refill(s), Pharmacy: [facility], 180.34, cm, 07/23/23 9:23:00 EDT, Height, 117.93, kg, 09/08/23 10:25:00 EST, Weight Dosing Start Date: 09/14/23 Stop Date: 09/08/24 Status: Ordered Narcan 4 mg/0.1 mL nasal spray 1 sprays, Nasal, Once, PRN other (see comment), may repeat every 2 to 3 minutes until patient responds, # 2 EA, 0 Refill(s), Pharmacy: [facility] Start Date: 09/25/22 Status: Ordered sildenafil 100 mg oral tablet 1 tab, Oral, Daily, # 10 tab, 1 Refill(s), Pharmacy: [facility], 179, cm, 12/23/23 10:23:00 EDT, Height, 115.67, kg, 12/23/23 10:25:00 EDT, Weight Dosing Start Date: 12/29/23 Stop Date: 02/27/24 Status: Ordered traZODone 50 mg oral tablet 1 tab, Oral, every night at bedtime, # 90 tab, 3 Refill(s), Pharmacy: [facility] Start Date: 03/19/23 Stop Date: 03/13/24 Status: Ordered triamcinolone 0.025% topical cream 1 ignacio, Topical, BID, PRN itching/rash, apply a thin film to affected area Steroid cream for itchingand redness., # 60 g, 0 Refill(s), Pharmacy: [facility] Start Date: 08/22/22 Stop Date: 09/05/22 Status: Ordered zolpidem 10 mg oral tablet 10 mg = 1 tab, Oral, every night at bedtime, swallow whole do not crush or chew, # 28 tab, 2 Refill(s), Pharmacy: [facility], 179, cm, 12/23/23 10:23:00 EDT, Height, 115.55, kg, 02/24/24 9:15:00 EDT, Weight Dosing Start Date: 02/24/24 Stop Date: 05/18/24 Status: Ordered Problem List Condition Confirmation Course [...] pain Confirmed Active Claustrophobia Confirmed 04/19/19 Active Depression Confirmed Active Diverticulosis of colon [...] Drug Screen Urine (Drug Screen Urine w/ Opiate Conf) 02/24/24 Most recent to oldest [Reference Range]: 1 U Amph Scrn [Negative] Negative 1 (02/24/24 11:30 AM) U Benzodia Scrn [Negative] Negative (02/24/24 11:30 AM) U Cocaine Scrn [Negative] Negative (02/24/24 11:30 AM) U Amina Scrn [Negative] Negative (02/24/24 11:30 AM) U Opiate Scrn [Negative] Positive *ABN* (02/24/24 11:30 AM) U Oxy Scrn [Negative] Negative (02/24/24 11:30 AM) U PCP Scrn [Negative] Negative (02/24/24 11:30 AM) U THC Scr [Negative] Positive *ABN* (02/24/24 11:30 AM) U Methadone Scr [Negative] Negative (02/24/24 11:30 AM) U Buprenorph Scr [Negative] Negative (02/24/24 11:30 AM) U mAMP Scr [Negative] Negative (02/24/24 11:30 AM) U TCA Scr [Negative] Negative (02/24/24 11:30 AM) 1Interpretive Data: These are unconfirmed screening [...] tobacco user T obacco Use:. Sex Male Patient Care team information Care Team Personnel Name: Astrid Mcdonough MD Position: Physician Member Role: Informed Provider Address: Address: [address] [place] [address] [place] [address] Care Team Related Persons Name: VADIM COSTA
--- OUTSIDE RECORDS SUMMARY | 2024-08-29 14:09 | XMS_ITS | Continuity of Care Document ---
Author Organization [facility] Address [address] [place] [address] Care Team Providers Care Computer Tech Name Role Phone Astrid Mcdonough Primary Care Physician [facility]counter [facility] Date(s): 09/08/23 - 09/08/[address] [address] Encounter Diagnosis Opioid use(Discharge Diagnosis) - 09/08/23 Discharge Disposition: Home or Self Care Attending Physician: Benji Nguynễ NP Admitting Physician: Benji Nguyễn NP Referring Physician: Benji Nguyễn NP Allergies, Adverse Reactions, Alerts No Known Medication Allergies Substance Reaction Severity Status allopurinol Skin rash Unknown Active ketoconazole 1 Skin rash Unknown Active 1patient states the rash was from allopurinol not this, and he has used it without issue.%0ALast modified by Alysia Alcaraz 12-24-2020, 08:31 Assessment and Plan Future Appointments Diagnostic Tests Pending * Opioids and Metabolites Confirmation Panel, Urine CTOX 09/08/23 Future Scheduled Tests Radiology* XR Spine Lumbosacral [...] by CHANORN. 2Result Comment: Patient Declined Medications [facility] Prescription 90 EA, TAKE ONE TABLET BY MOUTH EVERY DAY, 0 Refill(s) Start Date: 03/19/23 Status: Ordered atorvastatin 20 mg oral tablet 20 mg = 1 tab, Oral, Daily, # 90 tab, 2 Refill(s), Pharmacy: [id number] Start Date: 06/16/23 Status: Ordered Combivent Respimat CFC free 20 mcg-100 mcg/inh inhalation aerosol 1 puffs, Inhale, As Directed, # 4 g, 0 Refill(s) Start Date: 03/19/23 Status: Ordered DULoxetine 30 mg oral delayed release capsule 30 mg = 1 cap, Oral, BID, # 180 cap, 3 Refill(s), Pharmacy: [id number] Start Date: 07/11/23 Stop Date: 07/05/24 Status: Ordered Eliquis 5 mg oral tablet 5 mg = 1 tab, Oral, BID, # 180 tab, 3 Refill(s), Pharmacy: [id number] Start Date: 07/30/23 Stop Date: 07/24/24 Status: Ordered ergocalciferol 1.25 mg (50,000 intl units) oral capsule 50,000 IntlUnit = 1 cap, Oral, every 2 wk, as directed, # 7 cap, 3 Refill(s), Pharmacy: [id number] Start Date: 07/22/22 Stop Date: 07/17/23 Status: Ordered febuxostat 40 mg oral tablet 1 tab, Oral, Daily, # 90 tab, 3 Refill(s), Pharmacy: [id number] Start Date: 07/11/23 Stop Date: 07/05/24 Status: Ordered HYDROcodone-acetaminophen 10 mg-325 mg oral tablet 1 tab, Oral, every 4 hr, PRN as needed for pain, Take 1 tablet every 4-6 hours as needed for severepain. Recommendations to decrease to 5 tablets daily for upcoming wean., # 168 tab, 0 Refill(s), Pharmacy: [id number] Start Date: 07/27/23 Stop Date: 08/24/23 Status: Ordered HYDROcodone-acetaminophen 10 mg-325 mg oral tablet 1 tab, Oral, every 4 hr, PRN as needed for pain, Take 1 tablet every 4-6 hours as needed for severepain. Recommendations to decrease to 5 tablets daily for upcoming wean., # 168 tab, 0 Refill(s), Pharmacy: [id number], 180.34, cm, 07/23/23 9:23:00 EDT, Height, 117.93, kg, 09/08/23 10:25:00 EST, Weight Dosing Start Date: 09/08/23 Stop Date: 10/06/23 Status: Ordered hydrOXYzine hydrochloride 50 mg oral tablet 30 EA, TAKE ONE TABLET BY MOUTH EVERY DAY WITH EVENING MEAL, 0 Refill(s) Start Date: 03/19/23 Status: Ordered ketoconazole 2% topical cream 1 ignacio, Topical, BID, to affected area. Anti-fungal for yeast infection., # 60 g, 0 Refill(s), Pharmacy: [id number] Start Date: 08/22/22 Stop Date: 09/19/22 Status: Ordered losartan 50 mg oral tablet 50 mg = 1 tab, Oral, Daily, # 90 tab, 2 Refill(s), Pharmacy: [id number] Start Date: 03/19/23 Status: Ordered Metoprolol Succinate ER 50 mg oral tablet, extended release 50 mg = 1 tab, Oral, Daily, # 90 tab, 3 Refill(s), Pharmacy: [id number] Start Date: 07/22/22 Stop Date: 07/17/23 Status: Ordered Narcan 4 mg/0.1 mL nasal spray 1 sprays, Nasal, Once, PRN other (see comment), may repeat every 2 to 3 minutes until patient responds, # 2 EA, 0 Refill(s), Pharmacy: [id number] Start Date: 09/25/22 Status: Ordered sildenafil 100 mg oral tablet 1 tab, Oral, Daily, # 10 tab, 3 Refill(s), Pharmacy: [facility], 180.34, cm, 07/23/23 9:23:00 EDT, Height Start Date: 08/26/23 Stop Date: 12/24/23 Status: Ordered traZODone 50 mg oral tablet 1 tab, Oral, every night at bedtime, # 90 tab, 3 Refill(s), Pharmacy: [id number] Start Date: 03/19/23 Stop Date: 03/13/24 Status: Ordered triamcinolone 0.025% topical cream 1 ignacio, Topical, BID, PRN itching/rash, apply a thin film to affected area Steroid cream for itchingand redness., # 60 g, 0 Refill(s), Pharmacy: [id number] Start Date: 08/22/22 Stop Date: 09/05/22 Status: Ordered zolpidem 10 mg oral tablet 10 mg = 1 tab, Oral, every night at bedtime, swallow whole do not crush or chew, # 28 tab, 6 Refill(s), Pharmacy: [id number], 180.34, cm, 07/23/23 9:23:00 EDT, Height, 117.93, kg, 09/08/23 10:25:00 EST, Weight Dosing Start Date: 09/08/23 Stop Date: 03/22/24 Status: Ordered Problem List Condition Confirmation Course [...] disorder Confirmed Active Nocturnal hypoxemia Confirmed Active Insulin resistance Confirmed 10/11/20 Active Lyme disease Confirmed Active Microscopic hematuria Confirmed 01/03/21 Active Moderate persistent asthma Confirmed Active Muscle pain Confirmed Active Myalgia/myositis - multiple Confirmed 10/11/20 Active Obstructive sleep apnea syndrome Confirmed Active Obstructive sleep apnea Confirmed Active Pain of left hip joint Confirmed 11/14/19 Active Psychophysiologic insomnia Confirmed 07/12/18 Active Psychophysiological [...] Urine (Drug Screen Urine w/ Opiate Conf) 09/08/23 Most recent to oldest [Reference Range]: 1 U Amph Scrn [Negative] Negative 1 (09/08/23 11:27 AM) U Benzodia Scrn [Negative] Negative (09/08/23 11:27 AM) U Cocaine Scrn [Negative] Negative (09/08/23 11:27 AM) U Amina Scrn [Negative] Negative (09/08/23 11:27 AM) U Opiate Scrn [Negative] Positive *ABN* (09/08/23 11:27 AM) U Oxy Scrn [Negative] Negative (09/08/23 11:27 AM) U PCP Scrn [Negative] Negative (09/08/23 11:27 AM) U THC Scr [Negative] Positive *ABN* (09/08/23 11:27 AM) U Methadone Scr [Negative] Negative (09/08/23 11:27 AM) U Buprenorph Scr [Negative] Negative (09/08/23 11:27 AM) U mAMP Scr [Negative] Negative (09/08/23 11:27 AM) U TCA Scr [Negative] Negative (09/08/23 11:27 AM) 1Interpretive Data: These are unconfirmed screening [...] Physician Member Role: Informed Provider Address: Address: [address] [place] [address] [place] [address] Care Team Related Persons Name: VADIM COSTA
--- OUTSIDE RECORDS SUMMARY | 2024-08-29 14:09 | XMS_ITS | Continuity of Care Document ---
Author Organization [facility] Address [address] [place] [address] Care Team Providers Care Substation Designer Name Role Phone Astrid Mcdonough Primary Care Physician [phone] Encounter [facility] Date(s): 12/01/23 - 12/01/[address] [address] Encounter Diagnosis Chronic pain(Discharge Diagnosis) - 12/01/23 Degeneration of cervical intervertebral disc(Discharge Diagnosis) - 12/01/23 Insomnia(Discharge Diagnosis) - 12/01/23 Discharge Disposition: Home or Self Care Attending Physician: Benji Nguyễn NP Admitting Physician: Benji Nguyễn NP Referring [...] Opioids and Metabolites Confirmation Panel, Urine CTOX 12/01/23 Future Scheduled Tests Radiology* XR Spine Lumbosacral [...] Given Patient Refuses 1Result Comment: verified by CHANO,RN. 2Result Comment: Patient Declined Medications [facility] [place] Prescription 90 EA, TAKE ONE TABLET BY MOUTH EVERY DAY, 0 Refill(s) Start Date: 03/19/23 Status: Ordered atorvastatin 20 mg oral tablet 20 mg = 1 tab, Oral, Daily, # 90 tab, 2 Refill(s), Pharmacy: [id number] Start Date: 06/16/23 Status: Ordered Combivent Respimat CFC free 20 mcg-100 mcg/inh inhalation aerosol 1 puffs, Inhale, As Directed, # 4 g, 0 Refill(s) Start Date: 03/19/23 Status: Ordered DULoxetine 30 mg oral delayed release capsule 30 mg = 1 cap, Oral, BID, # 180 cap, 3 Refill(s), Pharmacy: [id number] Start Date: 07/11/23 Stop Date: 07/05/24 Status: Ordered Eliquis 5 mg oral tablet 5 mg = 1 tab, Oral, BID, # 180 tab, 3 Refill(s), Pharmacy: [id number], 180.34, cm, 07/23/23 9:23:00 EDT, Height, 117.93, kg, 09/08/23 10:25:00 EST, Weight Dosing Start Date: 10/22/23 Stop Date: 10/16/24 Status: Ordered ergocalciferol 1.25 mg (50,000 intl units) oral capsule 50,000 IntlUnit = 1 cap, Oral, every 2 wk, as directed, # 7 cap, 3 Refill(s), Pharmacy: [id number] Start Date: 07/22/22 Stop Date: 07/17/23 Status: Ordered febuxostat 40 mg oral tablet 1 tab, Oral, Daily, # 90 tab, 3 Refill(s), Pharmacy: [facility], 180.34, cm, 07/23/23 9:23:00 EDT, Height, [...] wean., # 168 tab, 0 Refill(s), Pharmacy: [facility], 180.34, cm, 07/23/23 9:23:00 EDT, Height, 117.93, kg, 09/08/23 10:25:00 EST, Weight Dosing Start Date: 10/22/23 Stop Date: 11/19/23 Status: Ordered HYDROcodone-acetaminophen 10 mg-325 mg oral tablet 1 tab, Oral, every 4 hr, PRN as needed for pain, Take 1 tablet every 4-6 hours as needed for severepain. Minimize use to prepare for weaning, # 152 tab, 0 Refill(s), Pharmacy: [facility], 179.07, cm, 11/18/23 11:12:00 EST, Height, 119.65, kg, 12/01/23 9:53:00 EST, Weight Dosing Start Date: 12/01/23 Stop Date: 12/29/23 Status: Ordered HYDROcodone-acetaminophen 10 mg-325 mg oral tablet 1 tab, Oral, every 4 hr, PRN as needed for pain, Take 1 tablet every 4-6 hours as needed for severepain. Minimize use to prepare for weaning, # 152 tab, 0 Refill(s), Pharmacy: [facility], 179.07, cm, 11/18/23 11:12:00 EST, Height, 119.65, kg, 12/01/23 9:53:00 EST, Weight Dosing Start Date: 12/01/23 Stop Date: 12/29/23 Status: Ordered HYDROcodone-acetaminophen 10 mg-325 mg oral tablet 1 tab, Oral, every 4 hr, Take 1 tablet every 4-6 hours as needed for severe pain. Minimize use to prepare for weaning, # 152 tab, 0 Refill(s), Pharmacy: [facility], 179.07, cm, 11/18/23 11:12:00 EST, Height, 119.65, kg, 12/01/23 9:53:00 EST, Weight Dosing Start Date: 12/01/23 Stop Date: 12/29/23 Status: Ordered ketoconazole 2% topical cream 1 ignacio, Topical, BID, to affected area. Anti-fungal for yeast infection., # 60 g, 0 Refill(s), Pharmacy: [id number] Start Date: 08/22/22 Stop Date: 09/19/22 Status: Ordered losartan 50 mg oral tablet 50 mg = 1 tab, Oral, Daily, # 90 tab, 2 Refill(s), Pharmacy: [facility] Start Date: 03/19/23 Status: Ordered Metoprolol Succinate ER 50 mg oral tablet, extended release 50 mg = 1 tab, Oral, Daily, # 90 tab, 3 Refill(s), Pharmacy: [id number], 180.34, cm, 07/23/23 9:23:00 EDT, Height, 117.93, kg, 09/08/23 10:25:00 EST, Weight Dosing Start Date: 09/14/23 Stop Date: 09/08/24 Status: Ordered Narcan 4 mg/0.1 mL nasal spray 1 sprays, Nasal, Once, PRN other (see comment), may repeat every 2 to 3 minutes until patient responds, # 2 EA, 0 Refill(s), Pharmacy: [facility] Start Date: 09/25/22 Status: Ordered sildenafil 100 mg oral tablet 1 tab, Oral, Daily, # 10 tab, 3 Refill(s), Pharmacy: [facility], 180.34, cm, 07/23/23 9:23:00 EDT, Height Start Date: 08/26/23 Stop Date: 12/24/23 Status: Ordered traZODone 50 mg oral tablet 1 tab, Oral, every night at bedtime, # 90 tab, 3 Refill(s), Pharmacy: [facility] Start Date: 03/19/23 Stop Date: 03/13/24 Status: Ordered triamcinolone 0.025% topical cream 1 ignacio, Topical, BID, PRN itching/rash, apply a thin film to affected area Steroid cream for itchingand redness., # 60 g, 0 Refill(s), Pharmacy: [facility] Start Date: 08/22/22 Stop Date: 09/05/22 Status: Ordered zolpidem 10 mg oral tablet 10 mg = 1 tab, Oral, every night at bedtime, swallow whole do not crush or chew, # 28 tab, 2 Refill(s), Pharmacy: [id number], 179.07, cm, 11/18/23 11:12:00 EST, Height, [...] Urine (Drug Screen Urine w/ Opiate Conf) 12/01/23 Most recent to oldest [Reference Range]: 1 U Amph Scrn [Negative] Negative 1 (12/01/23 2:10 PM) U Benzodia Scrn [Negative] Negative (12/01/23 2:10 PM) U Cocaine Scrn [Negative] Negative (12/01/23 2:10 PM) U Amina Scrn [Negative] Negative (12/01/23 2:10 PM) U Opiate Scrn [Negative] Positive *ABN* (12/01/23 2:10 PM) U Oxy Scrn [Negative] Negative (12/01/23 2:10 PM) U PCP Scrn [Negative] Negative (12/01/23 2:10 PM) U THC Scr [Negative] Positive *ABN* (12/01/23 2:10 PM) U Methadone Scr [Negative] Negative (12/01/23 2:10 PM) U Buprenorph Scr [Negative] Negative (12/01/23 2:10 PM) U mAMP Scr [Negative] Negative (12/01/23 2:10 PM) U TCA Scr [Negative] Negative (12/01/23 2:10 PM) 1Interpretive Data: These are unconfirmed screening results, [...] Physician Member Role: Informed Provider Address: Address: [address] [place] [address] [place] [address] Care Team Related Persons Name: VADIM COSTA
--- OUTSIDE RECORDS SUMMARY | 2024-08-29 14:09 | XMS_ITS | Continuity of Care Document ---
Author Organization [facility] Address [address] [place] [address] Care Team Providers Care Supervisor Prep Name Role Phone Astrid Grier Primary Care Physician Encounter [facility] Date(s): 03/24/23 - 03/24/[address] [address] Encounter Diagnosis Hypertensive disorder(Discharge Diagnosis) - 03/24/23 Discharge Disposition: Home or Self Care Attending Physician: Astrid Grier MD Admitting Physician: Astrid Grier MD Referring Physician: Atsrid Grier MD Allergies, Adverse Reactions, Alerts No Known Medication Allergies Substance Reaction Severity Status allopurinol Skin rash Unknown Active ketoconazole 1 Skin rash Unknown Active 1patient states the rash was from allopurinol not this, and he has used it without issue.%0ALast modified by Alysia Alcaraz 12-24-2020, 08:31 Assessment and Plan Future Appointments Future Scheduled Tests Radiology* XR [...] 0 Refill(s) Start Date: 03/19/23 Status: Ordered Combivent Respimat CFC free 20 mcg-100 mcg/inh inhalation aerosol 1 puffs, Inhale, As Directed, # 4 g, 0 Refill(s) Start Date: 03/19/23 Status: Ordered DULoxetine 30 mg oral delayed release capsule 30 mg = 1 cap, Oral, BID, # 180 cap, 3 Refill(s), Pharmacy: [id number] Start Date: 07/22/22 Stop Date: 07/17/23 Status: Ordered Eliquis 5 mg oral tablet 5 mg = 1 tab, Oral, BID, # 180 tab, 3 Refill(s), Pharmacy: [facility] Start Date: 07/22/22 Stop Date: 07/17/23 Status: Ordered ergocalciferol 1.25 mg (50,000 intl units) oral capsule 50,000 IntlUnit = 1 cap, Oral, every 2 wk, as directed, # 7 cap, 3 Refill(s), Pharmacy: [facility] Start Date: 07/22/22 Stop Date: 07/17/23 Status: Ordered febuxostat 40 mg oral tablet 1 tab, Oral, Daily, # 90 tab, 3 Refill(s), Pharmacy: [facility] Start Date: 07/22/22 Stop Date: 07/17/23 Status: Ordered Humira Pen 40 mg/0.4 mL subcutaneous kit 40 mg =, Subcutaneous, every 2 wk, 0 Refill(s) Start Date: 03/19/23 Status: Ordered Humira Pen 40 mg/0.8 mL subcutaneous kit 2 unknown unit, 0 Refill(s) Start Date: 03/19/23 Status: Ordered HYDROcodone-acetaminophen 10 mg-325 mg oral tablet 1 tab, Oral, every 4 hr, PRN as needed for pain, # 54 tab, 0 Refill(s), Pharmacy: [facility] Start Date: 03/11/23 Stop Date: 03/20/23 Status: Ordered hydrOXYzine hydrochloride 50 mg oral tablet 30 EA, TAKE ONE TABLET BY MOUTH EVERY DAY WITH EVENING MEAL, 0 Refill(s) Start Date: 03/19/23 Status: Ordered ketoconazole 2% topical cream 1 ignacio, Topical, BID, to affected area. Anti-fungal for yeast infection., # 60 g, 0 Refill(s), Pharmacy: [facility] Start Date: 08/22/22 Stop Date: 09/19/22 Status: Ordered losartan 50 mg oral tablet 50 mg = 1 tab, Oral, Daily, # 90 tab, 2 Refill(s), Pharmacy: [facility] Start Date: 03/19/23 Status: Ordered Metoprolol Succinate ER 50 mg oral tablet, extended release 50 mg = 1 tab, Oral, Daily, # 90 tab, 3 Refill(s), Pharmacy: [facility] Start Date: 07/22/22 Stop Date: 07/17/23 Status: Ordered Narcan 4 mg/0.1 mL nasal spray 1 sprays, Nasal, Once, PRN other (see comment), may repeat every 2 to 3 minutes until patient responds, # 2 EA, 0 Refill(s), Pharmacy: [facility] Start Date: 09/25/22 Status: Ordered sildenafil 100 mg oral tablet 1 tab, Oral, Daily, # 10 tab, 11 Refill(s), Pharmacy: [facility] Start Date: 07/22/22 Stop Date: 07/17/23 Status: Ordered traZODone 50 mg oral tablet 1 tab, Oral, every night at bedtime, # 90 tab, 3 Refill(s), Pharmacy: [facility] Start Date: 03/19/23 Stop Date: 03/13/24 Status: Ordered triamcinolone 0.025% topical cream 1 ignacio, Topical, BID, PRN itching/rash, apply a thin film to affected area Steroid cream for itchingand redness., # 60 g, 0 Refill(s), Pharmacy: [facility] Start Date: 08/22/22 Stop Date: 09/05/22 Status: Ordered triamcinolone 0.5% topical ointment 1 ignacio, Topical, BID, # 430 g, 0 Refill(s), Pharmacy: [facility] Start Date: 12/25/22 Stop Date: 01/08/23 Status: Ordered zolpidem 10 mg oral tablet 10 mg = 1 tab, Oral, every day at bedtime, PRN as needed for insomnia, # 28 tab, 0 Refill(s), Pharmacy: [facility] Start Date: 12/25/22 Status: Ordered zolpidem 10 mg oral tablet 10 mg = 1 tab, Oral, every day at bedtime, PRN as needed for insomnia, # 28 tab, 0 Refill(s), Pharmacy: [facility] Start Date: 12/25/22 Status: Ordered zolpidem 10 mg oral tablet 10 mg = 1 tab, Oral, every night at bedtime, swallow whole do not crush or chew, # 28 tab, 3 Refill(s), Pharmacy: [facility] Start Date: 09/25/22 Stop Date: 01/15/23 Status: Ordered Problem List Condition Confirmation Course [...] Hyperlipidemia Confirmed Active Hypertensive disorder Confirmed Active Insulin resistance Confirmed 10/11/20 Active Lyme disease Confirmed Active Microscopic hematuria Confirmed 01/03/21 Active Moderate persistent asthma Confirmed Active Muscle pain Confirmed Active Myalgia/myositis - multiple Confirmed 10/11/20 Active Obstructive sleep apnea syndrome Confirmed Active Pain of left hip joint Confirmed 11/14/19 Active Psychophysiologic insomnia Confirmed 07/12/18 Active Sciatica Confirmed Active Tinea corporis Confirmed [...] phalanx fracture 02/07/13 Completed Carpal tunnel release 12/31/11 Com pleted C5-C6 and C6-C7 diskectomy and [...] right ankle Results Laboratory List Name Date .Morphology ([facility]) 03/24/23 Automated Diff 03/24/23 CBC w/ Diff 03/24/23 Comprehensive Metabolic Panel (CMP) 03/24 Lipid Panel 03/24/23 Most recent to oldest [Reference Range]: 1 WBC [5.0-10.0 x10^3/mcL] 7.5 x10^3/mcL (03/24/23 10:27 AM) RBC [4.6-6.0 x10^6/mcL] 4.3 x10^6/mcL *LOW* (03/24/23 10:27 AM) Neutro Auto [40.0-75.0 %] 42.7 % (03/24/23 10:27 AM) Lymph Auto [20.0-50.0 %] 40.3 % (03/24/23 10:27 AM) Cascade Auto [2.0-15.0 %] 13.0 % (03/24/23 10:27 AM) Basophil Auto [0.0-1.0 %] 0.8 % (03/24/23 10:27 AM) BUN [7-18 mg/dL] 18 mg/dL (03/24/23 10:27 AM) Cholesterol Total [50-200 mg/dL] 206 mg/ dL *HI* (03/24/23 10:27 AM) LDL [0-130 mg/dL] 114 mg/dL (03/24/23 10:27 AM) Glucose Level [74-106 mg/dL] 127 mg/dL *HI* (03/24/23 10:27 AM) Potassium Level [3.5-5.1 mmol/L] 4.3 mmo l/L (03/24/23 10:27 AM) MCV [80.0-96.0 fL] 107.7 fL *HI* (03/24/23 10:27 AM) RBC Morph Abnormal (03/24/23: AM) HDL [40-60 mg/dL] 68 mg/dL *HI* (03/24/23 10: AM) AST [15-37 unit/L] 36 unit/L (03/24/23 10: AM) ALT [16-63 unit/L] 49 unit/L (03/24/23 10: AM) MCHC [31.0-35.0 g/dL] 33.4 g/dL (03/24/23 10: AM) Sodium Level [136-145 mmol/L] 137 mmol/L (03/24/23 10: AM) Hct [41.0-51.0 %] 46.1 % (03/24/23: AM) Hypochromia Rare (03/24/23: AM) Triglycerides [0-150 mg/dL] 121 mg/dL (03/24/23: AM) Calcium Level [8.5-10.1 mg/dL] 9.2 mg/dL (03/24/23 10: AM) Albumin Level [3.4-5.0 g/dL] 3.6 g/dL (03/24/23 10: AM) Protein Total [6.4-8.2 g/dL] 7.3 g/dL (03/24/23 10: AM) MCH [26.0-32.0 pg] 36.0 pg *HI* (03/24/23: AM) Neutro Absolute 3.2 x10^3/mcL *NA* (03/24/23 10: AM) Bilirubin Total [0.2-1.0 mg/dL] 0.8 mg/d L (03/24/23 10: AM) Hgb [14.0-18.0 g/dL] 15.4 g/dL (03/24/23 10:27 AM) Alk Phos [46-146 unit/L] 62 unit/L (03/24/23 10:27 AM) Platelets [130-450 x10^3/mcL] 219 x10^3/ mcL (03/24/23 10:27 AM) CO2 [21-32 mmol/L] 28 mmol/L (03/24/23 10:27 AM) Macrocyte Small (03/24/23 10:27 AM) eGFR Non-AA [>=60] 51 *LOW* (03/24/23 10:27 AM) eGFR AA [>=60] 51 *LOW* (03/24/23 10:27 AM) Chloride Level [98-107 mmol/L] 101 mmol/ L (03/24/23 10:27 AM) RDW-CV [11.5-14.5 %] 13.4 % (03/24/23 10:27 AM) Stomatocyte Rare (03/24/23 10: AM) Imm Gran Auto [0.0-0.9 %] 0.7 % (03/24/23 10:27 AM) Slide Review Morph Only (03/24/23 10:27 AM) Creatinine Level [0.70-1.30 mg/dL] 1.53 mg/dL *HI* (03/24/23 10:27 AM) Plt Estimation [Adequate] Adequate (03/24/23 10:27 AM) Eos, Auto [1.0-6.0 %] 2.5 % (03/24/23 10:27 AM) Social History Social History Type Response Tobacco Never tobacco user T obacco Use:. Sex Male Patient Care team information Care Team Personnel Name: Astrid Grier MD Position: Physician Member Role: Primary Care Physician Address: Address: [address] [place] [id number] [place] Care Team Related Persons Name: VADIM COSTA
--- OUTSIDE RECORDS SUMMARY | 2024-08-29 14:09 | XMS_ITS | Continuity of Care Document ---
Author Organization [facility] Address [address] [place] [address] Care Team Providers Care Vitreo Retinal Surgeon Name Role Phone Astrid Mcdonough Primary Care Physician Encounter [facility] Date(s): 07/21/23 - 07/21/23 [facility] [address] [place] [address] Discharge Disposition: Home Allergies, Adverse Reactions, Alerts No Known Medication [...] by CHANO,RN. 2Result Comment: Patient Declined Medications AAA - Misc Prescription 90 EA, TAKE ONE TABLET BY MOUTH EVERY DAY, 0 Refill(s) Start Date: 03/19/23 Status: Ordered atorvastatin 20 mg oral tablet 20 mg = 1 tab, Oral, Daily, # 90 tab, 2 Refill(s), Pharmacy: [id number] Start Date: 06/16/23 Status: Ordered Combivent Respimat CFC free 20 mcg-100 mcg/inh inhalation aerosol 1 puffs, Inhale, As Directed, # 4 g, 0 Refill(s) Start Date: 03/19/23 Status: Ordered DULoxetine 30 mg oral delayed release capsule 30 mg = 1 cap, Oral, BID, # 180 cap, 3 Refill(s), Pharmacy: [id number] Start Date: 07/11/23 Stop Date: 07/05/24 Status: Ordered Eliquis 5 mg oral tablet 5 mg = 1 tab, Oral, BID, # 180 tab, 3 Refill(s), Pharmacy: [id number] Start Date: 07/11/23 Stop Date: 07/05/24 Status: Ordered ergocalciferol 1.25 mg (50,000 intl units) oral capsule 50,000 IntlUnit = 1 cap, Oral, every 2 wk, as directed, # 7 cap, 3 Refill(s), Pharmacy: [id number] Start Date: 07/22/22 Stop Date: 07/17/23 Status: Ordered febuxostat 40 mg oral tablet 1 tab, Oral, Daily, # 90 tab, 3 Refill(s), Pharmacy: [email or web address] Start Date: 07/11/23 Stop Date: 07/05/24 Status: Ordered Humira Pen 40 mg/0.4 mL [...] wean., # 168 tab, 0 Refill(s), Pharmacy: [id number] Start Date: 08/24/23 Stop Date: 09/21/23 Status: Ordered HYDROcodone-acetaminophen 10 mg-325 mg oral tablet 1 tab, Oral, every 4 hr, PRN as needed for pain, Take 1 tablet every 4-6 hours as needed for severepain. Recommendations to decrease to 5 tablets daily for upcoming wean., # 168 tab, 0 Refill(s), Pharmacy: [facility] Start Date: 07/27/23 Stop Date: 08/24/23 Status: Ordered hydrOXYzine hydrochloride 50 mg oral tablet 30 EA, TAKE ONE TABLET BY MOUTH EVERY DAY WITH EVENING MEAL, 0 Refill(s) Start Date: 03/19/23 Status: Ordered ketoconazole 2% topical cream 1 ignacio, Topical, BID, to affected area. Anti-fungal for yeast infection., # 60 g, 0 Refill(s), Pharmacy: [id number] Start Date: 08/22/22 Stop Date: 09/19/22 Status: Ordered losartan 50 mg oral tablet 50 mg = 1 tab, Oral, Daily, # 90 tab, 2 Refill(s), Pharmacy: [facility] Start Date: 03/19/23 Status: Ordered metoprolol succinate 25 mg oral capsule, extended release 25 mg = 1 cap, Oral, Daily, Take 25mg and 50mg for total fof 75 mg daily, # 90 cap, 0 Refill(s), Pharmacy: [facility] Start Date: 07/11/23 Status: Ordered Metoprolol Succinate ER 50 mg oral tablet, extended release 50 mg = 1 tab, Oral, Daily, # 90 tab, 3 Refill(s), Pharmacy: [facility] Start Date: 07/22/22 Stop Date: 07/17/23 Status: Ordered Narcan 4 mg/0.1 mL nasal spray 1 sprays, Nasal, Once, PRN other (see comment), may repeat every 2 to 3 minutes until patient responds, # 2 EA, 0 Refill(s), Pharmacy: [facility] Start Date: 09/25/22 Status: Ordered sildenafil 100 mg oral tablet 1 tab, Oral, Daily, # 10 tab, 11 Refill(s), Pharmacy: [facility] Start Date: 07/22/22 Stop Date: 07/17/23 Status: Ordered traZODone 50 mg oral tablet 1 tab, Oral, every night at bedtime, # 90 tab, 3 Refill(s), Pharmacy: [facility] Start Date: 03/19/23 Stop Date: 03/13/24 Status: Ordered triamcinolone 0.025% topical cream 1 ignacio, Topical, BID, PRN itching/rash, apply a thin film to affected area Steroid cream for itchingand redness., # 60 g, 0 Refill(s), Pharmacy: [facility] Start Date: 08/22/22 Stop Date: 09/05/22 Status: Ordered triamcinolone 0.5% topical ointment 1 ignacio, Topical, BID, # 430 g, 0 Refill(s), Pharmacy: [facility] Start Date: 12/25/22 Stop Date: 01/08/23 Status: Ordered zolpidem 10 mg oral tablet 10 mg = 1 tab, Oral, every night at bedtime, swallow whole do not crush or chew, # 28 tab, 3 Refill(s), Pharmacy: [facility] Start Date: 03/25/23 Stop Date: 07/15/23 Status: Ordered Problem List Condition Confirmation Course [...] Confirmed 07/12/18 Active Psychophysiological insomnia Confirmed Active Sciatica Confirmed Active Tinea [...] exam 4ORIF right femur-05/31/2007. ORIF right ankle Social History Social History Type Response Tobacco Never tobacco user T obacco Use:. Sex Male Patient Care team information Care Team Personnel Name: Astrid Mcdonough MD Position: Physician Member Role: Primary Care Physician Address: Address: [address] [place] [id number] [place] Care Team Related Persons Name: VADIM COSTA
--- OUTSIDE RECORDS SUMMARY | 2024-08-29 14:09 | XMS_ITS | Continuity of Care Document ---
Author Organization [facility] Address [address] [place] [address] Care Team Providers Care Supervisor Agricultural Education Name Role Phone Astrid Mcdonough Primary Care Physician [phone] Encounter [facility] Date(s): 11/02/23 - 11/02/[address] [address] Discharge Disposition: Home or Self Care Attending Physician: Teofilo Cotton MD Admitting Physician: Teofilo Cotton MD Referring Physician: Teofilo Cotton MD Allergies, Adverse Reactions, Alerts No Known [...] Given Patient Refuses 1Result Comment: verified by SKY MADDEN. 2Result Comment: Patient Declined Medications AAA - Misc Prescription 90 EA, TAKE ONE TABLET BY MOUTH EVERY DAY, 0 Refill(s) Start Date: 03/19/23 Status: Ordered atorvastatin 20 mg oral tablet 20 mg = 1 tab, Oral, Daily, # 90 tab, 2 Refill(s), Pharmacy: [facility] Start Date: 06/16/23 Status: Ordered Combivent Respimat CFC free 20 mcg-100 mcg/inh inhalation aerosol 1 puffs, Inhale, As Directed, # 4 g, 0 Refill(s) Start Date: 03/19/23 Status: Ordered DULoxetine 30 mg oral delayed release capsule 30 mg = 1 cap, Oral, BID, # 180 cap, 3 Refill(s), Pharmacy: [facility] Start Date: 07/11/23 Stop Date: 07/05/24 Status: Ordered Eliquis 5 mg oral tablet 5 mg = 1 tab, Oral, BID, # 180 tab, 3 Refill(s), Pharmacy: [facility], 180.34, cm, 07/23/23 9:23:00 EDT, Height, 117.93, kg, 09/08/23 10:25:00 EST, Weight Dosing Start Date: 10/22/23 Stop Date: 10/16/24 Status: Ordered ergocalciferol 1.25 mg (50,000 intl units) oral capsule 50,000 IntlUnit = 1 cap, Oral, every 2 wk, as directed, # 7 cap, 3 Refill(s), Pharmacy: [facility] Start Date: 07/22/22 Stop Date: 07/17/23 Status: Ordered febuxostat 40 mg oral tablet 1 tab, Oral, Daily, # 90 tab, 3 Refill(s), Pharmacy: [facility], 180.34, cm, 07/23/23 9:23:00 EDT, Height, [...] wean., # 168 tab, 0 Refill(s), Pharmacy: [facility], 180.34, cm, 07/23/23 9:23:00 EDT, Height, 117.93, kg, 09/08/23 10:25:00 EST, Weight Dosing Start Date: 09/08/23 Stop Date: 10/06/23 Status: Ordered HYDROcodone-acetaminophen 10 mg-325 mg oral tablet 1 tab, Oral, every 4 hr, PRN as needed for pain, Take 1 tablet every 4-6 hours as needed for severepain. Recommendations to decrease to 5 tablets daily for upcoming wean., # 168 tab, 0 Refill(s), Pharmacy: [facility], 180.34, cm, 07/23/23 9:23:00 EDT, Height, [...] wean., # 168 tab, 0 Refill(s), Pharmacy: [facility], 180.34, cm, 07/23/23 9:23:00 EDT, Height, 117.93, kg, 09/08/23 10:25:00 EST, Weight Dosing Start Date: 10/22/23 Stop Date: 11/19/23 Status: Ordered hydrOXYzine hydrochloride 50 mg oral tablet 30 EA, TAKE ONE TABLET BY MOUTH EVERY DAY WITH EVENING MEAL, 0 Refill(s) Start Date: 03/19/23 Status: Ordered ketoconazole 2% topical cream 1 ignacio, Topical, BID, to affected area. Anti-fungal for yeast infection., # 60 g, 0 Refill(s), Pharmacy: [facility] Start Date: 08/22/22 Stop Date: 09/19/22 Status: Ordered losartan 50 mg oral tablet 50 mg = 1 tab, Oral, Daily, # 90 tab, 2 Refill(s), Pharmacy: [facility] Start Date: 03/19/23 Status: Ordered Metoprolol Succinate ER 50 mg oral tablet, extended release 50 mg = 1 tab, Oral, Daily, # 90 tab, 3 Refill(s), Pharmacy: [facility], 180.34, cm, 07/23/23 9:23:00 EDT, Height, 117.93, kg, 09/08/23 10:25:00 EST, Weight Dosing Start Date: 09/14/23 Stop Date: 09/08/24 Status: Ordered Narcan 4 mg/0.1 mL nasal spray 1 sprays, Nasal, Once, PRN other (see comment), may repeat every 2 to 3 minutes until patient responds, # 2 EA, 0 Refill(s), Pharmacy: [facility] Start Date: 09/25/22 Status: Ordered sildenafil 100 mg oral tablet 1 tab, Oral, Daily, # 10 tab, 3 Refill(s), Pharmacy: [facility], 180.34, cm, 07/23/23 9:23:00 EDT, Height Start Date: 08/26/23 Stop Date: 12/24/23 Status: Ordered traZODone 50 mg oral tablet 1 tab, Oral, every night at bedtime, # 90 tab, 3 Refill(s), Pharmacy: [facility] Start Date: 03/19/23 Stop Date: 03/13/24 Status: Ordered triamcinolone 0.025% topical cream 1 ignacio, Topical, BID, PRN itching/rash, apply a thin film to affected area Steroid cream for itchingand redness., # 60 g, 0 Refill(s), Pharmacy: [facility] Start Date: 08/22/22 Stop Date: 09/05/22 Status: Ordered zolpidem 10 mg oral tablet 10 mg = 1 tab, Oral, every night at bedtime, swallow whole do not crush or chew, # 28 tab, 1 Refill(s), Pharmacy: [facility], 180.34, cm, 07/23/23 9:23:00 EDT, Height, 117.93, kg, 09/08/23 10:25:00 EST, Weight Dosing Start Date: 10/22/23 Stop Date: 12/17/23 Status: Ordered Problem List Condition Confirmation Course [...] Results Laboratory List Name Date .Morphology ([facility]) 11/02/23 CBC w/ Diff 11/02/23 Comprehensive Metabolic Panel 11/02/23 Sedimentation Rate (ESR) 11/02/23 Automated Diff 11/02/23 Most recent to oldest [Reference Range]: 1 WBC [5.0-10.0 x10^3/mcL] 5.7 x10^3/mcL (11/02/23 10:25 AM) RBC [4.6-6.0 x10^6/mcL] 4.2 x10^6/mcL *LOW* (11/02/23 10:25 AM) Neutro Auto [40.0-75.0 %] 42.3 % (11/02/23 10:25 AM) Lymph Auto [20.0-50.0 %] 40.6 % (11/02/23 10:25 AM) Door Auto [2.0-15.0 %] 12.8 % (11/02/23 10:25 AM) Basophil Auto [0.0-1.0 %] 1.0 % (11/02/23 10:25 AM) BUN [7-18 mg/dL] 19 mg/dL *HI* (11/02/23 10:25 AM) Glucose Level [74-106 mg/dL] 130 mg/dL *HI* (11/02/23 10:25 AM) Potassium Level [3.5-5.1 mmol/L] 4.8 mmo l/L (11/02/23 10:25 AM) MCV [80.0-96.0 fL] 105.5 fL *HI* (11/02/23 10:25 AM) RBC Morph Abnormal (11/02/23 10: AM) AST [15-37 unit/L] 23 unit/L (11/02/23 10:25 AM) ALT [16-63 unit/L] 32 unit/L (11/02/23 10:25 AM) MCHC [31.0-35.0 g/dL] 33.1 g/dL (11/02/23 10:25 AM) Sodium Level [136-145 mmol/L] 140 mmol/L (11/02/23 10:25 AM) Hct [41.0-51.0 %] 44.1 % (11/02/23 10:25 AM) Calcium Level [8.5-10.1 mg/dL] 9.3 mg/dL (11/02/23 10:25 AM) Albumin Level [3.4-5.0 g/dL] 3.6 g/dL (11/02/23 10:25 AM) Protein Total [6.4-8.2 g/dL] 7.6 g/dL (11/02/23 10:25 AM) MCH [26.0-32.0 pg] 34.9 pg *HI* (11/02/23 10:25 AM) Neutro Absolute 2.4 x10^3/mcL *NA* (11/02/23 10:25 AM) Bilirubin Total [0.2-1.0 mg/dL] 1.0 mg/d L (11/02/23 10:25 AM) Hgb [14.0-18.0 g/dL] 14.6 g/dL (11/02/23 10:25 AM) Alk Phos [46-146 unit/L] 55 unit/L (11/02/23 10:25 AM) Platelets [130-450 x10^3/mcL] 209 x10^3/ mcL (11/02/23 10:25 AM) CO2 [21-32 mmol/L] 27 mmol/L (11/02/23 10:25 AM) Macrocyte Small (11/02/23 10:25 AM) eGFR Non-AA [>=60] 53 *LOW* (11/02/23 10:25 AM) eGFR AA [>=60] 53 *LOW* (11/02/23 10:25 AM) Chloride Level [98-107 mmol/L] 104 mmol/ L (11/02/23 10:25 AM) RDW-CV [11.5-14.5 %] 13.5 % (11/02/23 10:25 AM) Imm Gran Auto [0.0-0.9 %] 0.2 % (11/02/23 10:25 AM) Slide Review Morph Only (11/02/23 10:25 AM) Creatinine Level [0.70-1.30 mg/dL] 1.50 mg/dL *HI* (11/02/23 10:25 AM) Eos, Auto [1.0-6.0 %] 3.1 % (11/02/23 10:25 AM) ESR, Westergren [0-20 mm/hr] 3 mm/hr (11/02/23 10:25 AM) Social History Social History Type Response Tobacco Never tobacco user T obacco Use:. Sex Male Patient Care team information Care Team Personnel Name: Astrid Mcdonough MD Position: Physician Member Role: Informed Provider Address: Address: [address] [place] [address] [place] [address] Care Team Related Persons Name: VADIM COSAT
--- OUTSIDE RECORDS SUMMARY | 2024-08-29 14:09 | XMS_ITS | Continuity of Care Document ---
Author Organization [facility] Address [address] [place] [address] Care Team Providers Care Flight/Transport Nurse Name Role Phone Astrid Mcdonough Primary Care Physician Encounter [facility] Date(s): 06/30/23 - 06/30/[address] [address] Discharge Disposition: Home or Self Care Attending Physician: Arely Hanley NP Admitting Physician: Arely Hanley NP Referring Physician: Arely Hanley [employer] Allergies, Adverse Reactions, Alerts No Known Medication [...] SKY MADDEN. 2Result Comment: Patient Declined Medications [facility] Prescription 90 EA, TAKE ONE TABLET BY MOUTH EVERY DAY, 0 Refill(s) Start Date: 03/19/23 Status: Ordered atorvastatin 20 mg oral tablet 20 mg = 1 tab, Oral, Daily, # 90 tab, 2 Refill(s), Pharmacy: [facility] Start Date: 06/16/23 Status: Ordered Combivent Respimat CFC free 20 mcg-100 mcg/inh inhalation aerosol 1 puffs, Inhale, As Directed, # 4 g, 0 Refill(s) Start Date: 03/19/23 Status: Ordered DULoxetine 30 mg oral delayed release capsule 30 mg = 1 cap, Oral, BID, # 180 cap, 3 Refill(s), Pharmacy: [facility] Start Date: 07/22/22 Stop Date: 07/17/23 Status: Ordered Eliquis 5 mg oral tablet 5 mg = 1 tab, Oral, BID, # 180 tab, 3 Refill(s), Pharmacy: [facility] Start Date: 07/22/22 Stop Date: 07/17/23 Status: Ordered ergocalciferol 1.25 mg (50,000 intl units) oral capsule 50,000 IntlUnit = 1 cap, Oral, every 2 wk, as directed, # 7 cap, 3 Refill(s), Pharmacy: [facility] Start Date: 07/22/22 Stop Date: 07/17/23 Status: Ordered febuxostat 40 mg oral tablet 1 tab, Oral, Daily, # 90 tab, 3 Refill(s), Pharmacy: [facility] Start Date: 07/22/22 Stop Date: 07/17/23 [...] wean., # 168 tab, 0 Refill(s), Pharmacy: [facility] Start Date: 06/29/23 Stop Date: 07/27/23 Status: Ordered HYDROcodone-acetaminophen 10 mg-325 mg oral tablet 1 tab, Oral, every 4 hr, PRN as needed for pain, Take 1 tablet every 4-6 hours as needed for severepain. Recommendations to decrease to 5 tablets daily for upcoming wean., # 168 tab, 0 Refill(s), Pharmacy: [facility] Start Date: 04/22/23 Stop Date: 05/20/23 Status: Ordered hydrOXYzine hydrochloride 50 mg oral tablet 30 EA, TAKE ONE TABLET BY MOUTH EVERY DAY WITH EVENING MEAL, 0 Refill(s) Start Date: 03/19/23 Status: Ordered ketoconazole 2% topical cream 1 ignacio, Topical, BID, to affected area. Anti-fungal for yeast infection., # 60 g, 0 Refill(s), Pharmacy: [facility] Start Date: 08/22/22 Stop Date: 09/19/22 Status: Ordered losartan 50 mg oral tablet 50 mg = 1 tab, Oral, Daily, # 90 tab, 2 Refill(s), Pharmacy: [facility] Start Date: 03/19/23 Status: Ordered Metoprolol Succinate ER 50 mg oral tablet, extended release 50 mg = 1 tab, Oral, Daily, # 90 tab, 3 Refill(s), Pharmacy: [facility] Start Date: 07/22/22 Stop Date: 07/17/23 Status: Ordered Narcan 4 mg/0.1 mL nasal spray 1 sprays, Nasal, Once, PRN other (see comment), may repeat every 2 to 3 minutes until patient responds, # 2 EA, 0 Refill(s), Pharmacy: [facility] Start Date: 09/25/22 Status: Ordered sildenafil 100 mg oral tablet 1 tab, Oral, Daily, # 10 tab, 11 Refill(s), Pharmacy: [facility] Start Date: 07/22/22 Stop Date: 07/17/23 Status: Ordered traZODone 50 mg oral tablet 1 tab, Oral, every night at bedtime, # 90 tab, 3 Refill(s), Pharmacy: [facility] Start Date: 03/19/23 Stop Date: 03/13/24 Status: Ordered triamcinolone 0.025% topical cream 1 ignacio, Topical, BID, PRN itching/rash, apply a thin film to affected area Steroid cream for itchingand redness., # 60 g, 0 Refill(s), Pharmacy: [facility] Start Date: 08/22/22 Stop Date: 09/05/22 Status: Ordered triamcinolone 0.5% topical ointment 1 ignacio, Topical, BID, # 430 g, 0 Refill(s), Pharmacy: [facility] Start Date: 12/25/22 Stop Date: 01/08/23 Status: Ordered zolpidem 10 mg oral tablet 10 mg = 1 tab, Oral, every night at bedtime, swallow whole do not crush or chew, # 28 tab, 3 Refill(s), Pharmacy: [facility] Start Date: 03/25/23 Stop Date: 07/15/23 [...] Lumbar microdiscectomy 10/27/19 Co mpleted Colonoscopy 3 5/28/19 Completed Colonoscopy 10/11/15 Completed Closed reduction and [...] Member Role: Primary Care Physician Address: Address: [address] [place] [phone] [place] Care Team Related Persons Name: VADIM COSTA
--- OUTSIDE RECORDS SUMMARY | 2024-08-29 14:09 | XMS_ITS | Continuity of Care Document ---
Author Organization [facility] Address [address] [place] [address] Care Team Providers Care Movie Theater Usher Name Role Phone Astrid Mcdonough Primary Care Physician [phone] Encounter [facility] Date(s): 11/18/23 - 11/18/23 [facility] [address] [place] [address] Encounter Diagnosis Obstructive sleep apnea syndrome(Discharge Diagnosis) - 11/18/23 Nocturnal hypoxemia(Discharge Diagnosis) - 11/18/23 Obstructive sleep apnea (adult) (pediatric)(Final) - Idiopathic sleep related nonobstructive alveolar hypoventilation(Final) - Discharge Disposition: Home or Self Care Attending Physician: Arely Hanley NP Allergies, Adverse Reactions, Alerts No Known Medication Allergies Substance Reaction Severity Status allopurinol Skin rash Unknown Active ketoconazole 1 Skin rash Unknown Active 1patient states the rash was from allopurinol not this, and he has used it without issue.%0ALast modified by Alysia Alcaraz 12-24-2020, 08:31 Assessment and Plan Extracted from: Title:Sleep Clinic - Office Visit Note Author:Arely Motta NP Date:11/18/23 1.??Obstructive sleep apnea syndrome??G47.33 Brenda Esteban is a pleasant 63 year old male here as a new CPAP user for f2f visit. He is acclimating well to his CPAP and using it about half the nights per month over 4 hrs. Download data reviewed and discussed with the patient. He is encouraged to increase his compliance and his TYRON is well treated on CPAP. tx AHI 1.7/hr on auto CPAP 6 to 16cm H20 on resmed 11 airsense machine. Adjusted his pressure to auto CPAP 6 to 12 cm H20 due to low median pressures and mouth dryness. ?? He is using an Airtouch F20 FFM in Medium; tried the small and found it to be too small for him. The medium is a good fit and he finds it comofrtbale. He does note waking up some nights with a dry mouth and we reviewed how to adjust humidity and tube temp settings for comfort. Humidity set to 4, EPR set to 2. ?? He is vitaly for a cardiac procedure later this week. ?? Will revist titration PSG at next visit in 1 month. ? 2.??Nocturnal hypoxemia??G47.34 I provided greater than??30??minutes in the care of this patient, more than half the time was spent in caud-rz-bees counseling. ?with comorbidities of ? Afib, chronic back pain, HTN, rheumatoid arthritis, chronic insomnia (ambien 10mg, trazodone 50mg), obesity, hx of Lyme disease, HLD, chronic pain on Hydrocodone, asthma ? Clinical Data Reviewed: Moodus Sleepiness Scale: 04/04 ?? Machine Download Data:??Resmed AirSense 11 Auto CPAP?? PAP Settings: ?? Auto CPAP??6 to 16??CmH2O Date Range: ?10/17/23 - 11/15/23 Days with Usage >=4 hours: 57%? Avg Usage per Day Used: ??4hr 29min Mean/Median Pressure: ?6.9 90th-tile/95th-tile Pressure: ??10.5? Median-90th%tile Leak?0.0/16.1 Avg Treatment ??AHI: ??1.7/hr ? Sleep Clinical Timeline:? 11/03/2011: Diagnostic PSG. C/o loud snoring, observed apneic periods, nocturnal gasping, frequent nocturnal awakenings. ESS 06/04. BMI 33.9 kg/m2. Impression: 1. Borderline mild obstructive sleep apnea. AHI 5.4/hr. REM AHI 11.9/hr. Mean oxygen saturation: 92% on room air. SaO2 Emre: 89% on room air. 2. Extremely poor sleep consolidation and sleep efficiency with poor sleep hygiene - patient watching TV from 12:54am to 3:30am. 3. Prolonged REM latency with normal REM percentage with no underlying significant history of narcolepsy. Certainly the overall picture is not suggestive of underlying narcolepsy either. 4. Patient is currently on opiate painkillers and smokes marijuana on an as needed basis. ?? 03/11/2012: Last Sleep OV with Dr. Guillen, pt chose to discontinue CPAP after trying for 6 weeks, was unable to tolerate and pursue oral appliance evaluation. Pt was also made an OA but was also unable to tolerate after trying for 6 weeks. ? 04/22/2023: New patient sleep consult/re-evaluation at the kind request of Dr. Meyers. snoring, frequent nocturnal awakenings, nonrestorative sleep, waking up gasping for air, restless sleep, changes to mood, ESS 7/24, Warwick Questionnaire 3 out of 3. Patient is taking Ambien 10mg, Trazodone 50mg for insomnia nightly, and Hydrocodone for chronic pain. Drinks alcohol and smokes marijuana for sleep nightly. ?? 06/30/2023: Diagnostic PSG. Wt.: 253.2 lbs. ??BMI = 36.33 kg/m2.?? IMPRESSION: 1.??Mild Obstructive Sleep Apnea by RDI associated with significant nocturnal hypoxemia and sleep fragmentation?? 2.??Overall AHI: 3.5/hr; Overall RDI: 8.1/hr; REM AHI: 0.0/hr; Supine AHI: 7/hr; Right Lateral AHI:1 /hr; Left Lateral AHI: 4/hr; Prone AHI: N/A/hr. 3.??Mean SpO2: 89% and Emre SpO2: 83% on Room Air; 161.0 minutes spent with SpO2 less than or equal to 88% on Room Air. 4.??No evidence of Periodic Limb Movement Disorder seen during this study. PLM index: 0.8/hr, PLM arousal index: 0.2/hr. 5.??Frequent leg movements observed in association with respiratory events, which did not meet criteria to be included in Periodic Limb Movement Index. 6.??Atrial fibrillation seen on EKG, consistent with history. RECOMMENDATIONS: 1.??Given significant hypoxemia along with TYRON, the first line therapy is CPAP therapy with mask of choice, heated humidification, and ramp and return to the Sleep Lab for formal titration study to monitor that his hypoxemia has resolved. ? 07/23/2023: Start auto CPAP??6 to 16cm h20, pt has struggled with CPAP tolerance and mask fit in the past but is willing to try it again.??Once acclimated, will order a titration PSG given his VERY significant nocturnal hypoxemia and comorbid afib, asthma, and daily marijuana smoking. Pt continues to take HydroCone qAM, Ambien 10mg and Trazodone 50mg at bedtime. He is now being followed by Anat LEDESMA at [facility]. ?? 11/18/2023:??NEW CPAP user f2f visit. Adjusted pressures in office to auto CPAP 6 to 12cm H20, doing??very well acclimating to CPAP. Machine settings reviewed in office, education done. ? Current Mask: Airtouch F20 Medium ?? Today's Assessment and Plan: ? See above ?? Follow up: 1 month or sooner if needed. ? Remote Scribed by Seble Elaine ? Future Appointments Future Scheduled Tests Radiology* XR [...] by CHANORN. 2Result Comment: Patient Declined Medications [facility] Prescription 90 EA, TAKE ONE TABLET BY MOUTH EVERY DAY, 0 Refill(s) Start Date: 03/19/23 Status: Ordered atorvastatin 20 mg oral tablet 20 mg = 1 tab, Oral, Daily, # 90 tab, 2 Refill(s), Pharmacy: [facility] Start Date: 06/16/23 Status: Ordered Combivent Respimat CFC free 20 mcg-100 mcg/inh inhalation aerosol 1 puffs, Inhale, As Directed, # 4 g, 0 Refill(s) Start Date: 03/19/23 Status: Ordered DULoxetine 30 mg oral delayed release capsule 30 mg = 1 cap, Oral, BID, # 180 cap, 3 Refill(s), Pharmacy: [facility] Start Date: 07/11/23 Stop Date: 07/05/24 Status: Ordered Eliquis 5 mg oral tablet 5 mg = 1 tab, Oral, BID, # 180 tab, 3 Refill(s), Pharmacy: [facility], 180.34, cm, 07/23/23 9:23:00 EDT, Height, 117.93, kg, 09/08/23 10:25:00 EST, Weight Dosing Start Date: 10/22/23 Stop Date: 10/16/24 Status: Ordered ergocalciferol 1.25 mg (50,000 intl units) oral capsule 50,000 IntlUnit = 1 cap, Oral, every 2 wk, as directed, # 7 cap, 3 Refill(s), Pharmacy: [facility] Start Date: 07/22/22 Stop Date: 07/17/23 Status: Ordered febuxostat 40 mg oral tablet 1 tab, Oral, Daily, # 90 tab, 3 Refill(s), Pharmacy: [facility], 180.34, cm, 07/23/23 9:23:00 EDT, Height, 117.93, kg, 09/08/23 10:25:00 EST, Weight Dosing Start Date: 09/11/23 Stop Date: 09/05/24 Status: Ordered Humira Pen 40 mg/0.8 mL subcutaneous kit 2 unknown unit, 0 Refill(s), 0 Refill(s) Start Date: 11/16/23 Status: Ordered HYDROcodone-acetaminophen 10 mg-325 mg oral tablet 1 tab, Oral, every 4 hr, PRN as needed for pain, Take 1 tablet every 4-6 hours as needed for severepain. Recommendations to decrease to 5 tablets daily for upcoming wean., # 168 tab, 0 Refill(s), Pharmacy: [facility], 180.34, cm, 07/23/23 9:23:00 EDT, Height, [...] wean., # 168 tab, 0 Refill(s), Pharmacy: [facility], 180.34, cm, 07/23/23 9:23:00 EDT, Height, [...] wean., # 168 tab, 0 Refill(s), Pharmacy: [facility], 180.34, cm, 07/23/23 9:23:00 EDT, Height, [...] # 60 g, 0 Refill(s), Pharmacy: [facility] Start Date: 08/22/22 Stop Date: 09/19/22 Status: Ordered losartan 50 mg oral tablet 50 mg = 1 tab, Oral, Daily, # 90 tab, 2 Refill(s), Pharmacy: [facility] Start Date: 03/19/23 Status: Ordered [...] responds, # 2 EA, 0 Refill(s), Pharmacy: [facility] Start Date: 09/25/22 Status: Ordered sildenafil 100 mg oral tablet 1 tab, Oral, Daily, # 10 tab, 3 Refill(s), Pharmacy: [facility], 180.34, cm, 07/23/23 9:23:00 EDT, Height Start Date: 08/26/23 Stop Date: 12/24/23 Status: Ordered traZODone 50 mg oral tablet 1 tab, Oral, every night at bedtime, # 90 tab, 3 Refill(s), Pharmacy: [facility] Start Date: 03/19/23 Stop Date: 03/13/24 Status: Ordered triamcinolone 0.025% topical cream 1 ignacio, Topical, BID, PRN itching/rash, apply a thin film to affected area Steroid cream for itchingand redness., # 60 g, 0 Refill(s), Pharmacy: [facility] Start Date: 08/22/22 Stop Date: 09/05/22 Status: Ordered zolpidem 10 mg oral tablet 10 mg = 1 tab, Oral, every night at bedtime, swallow whole do not crush or chew, # 28 tab, 1 Refill(s), Pharmacy: [facility], 180.34, cm, [...] Range]: 1 Peripheral Pulse Rate [60-100 bpm] 76 bp m (11/18/23 11:12 AM) Blood Pressure [90-140/60-90 mmHg] 123/7 6mmHg (11/18/23 11:12 AM) Mean Arterial Pressure, Cuff [70-110 mmH g] 92 mmHg (11/18/23 11:12 AM) Weight 115.67 kg (11/18/23 11:12 AM) Weight Measured (lbs) 255.008 lb (11/18/23 11:12 AM) Weight Dosing 115.670 kg (11/18/23 11:12 AM) Height 179.07 cm (11/18/23 11:12 AM) Height/Length Measured (inches) 70.5 inc h (11/18/23 11:12 AM) BSA Measured 2.4 m2 (11/18/23 11:12 AM) Body Mass Index 36.07 kg/m2 (11/18/23 11:12 AM) Social History Social History Type Response Tobacco Never tobacco user T obacco Use:. Sex Male Progress note * [address] R: PERFORM Event Display: Progress Note - Physician Authored Date: [id number] Physician Outpatient Note * Arely Hanley PROJECT MANAGEMENT INTERN: PERFORM Event Display: Office Clinic Note Physician Authored Date: [id number] BRENDA ESTEBAN :1960 Age:63 years Sex:Male Visit Date:11/18/2023 Primary Care Physician: Astrid Mcdonough MD Chief Complaint new cpap user f2f History of Present Illness 63 years??male??here for cpap f2f ?? TODAY: He is starting to get better at using his machine. He is using an Airtouch mask, had to send back the small for a medium which fits a lot better. ?? He wakes up some mornings with a dry mouth. Review of Systems A 10-point REVIEW OF SYSTEM was obtained and reviewed, includes CONSTITUTIONAL, EYES, NOSE, THROAT,RESPIRATORY, HEART, GASTROINTESTINAL, UROLOGIC, MUSCULOSKELETAL, PSYCHIATRY, SKIN systems. Pertinent symptoms are discussed in history, otherwise negative. Physical Exam Vitals & Measurements HR:??76??(Peripheral)?? BP:??123/76?? SpO2:??96%?? HT:??179.07??cm?? WT:??115.67??kg?? BMI:??36.07?? BSA:??2.4?? General:??well appearing, appearing stated age, no acute distress,??obesebuild HEENT: atraumatic skull, anicteric RESPIRATORY: quiet respiration, able to speak in full sentences without dyspnea, no accessory muscle use SKIN: no facial skin rash, no facial skin lesions PSYCHIATRIC: well groomed, fluent speech, good insight, linear thought process, good eye contact,balanced??affect NEUROLOGIC: alert, oriented, symmetric facial expression Clinic Assessment/Plan 1.??Obstructive sleep apnea syndrome??G47.33 Brenda Esteban is a pleasant 63 year old male here as a new CPAP user for f2f visit. He is acclimatingwell to his CPAP and using it about half the nights per month over 4 hrs. Download data reviewed and discussed with the patient. He is encouraged to increase his compliance and his TYRON is well treated on CPAP. tx AHI 1.7/hr on auto CPAP 6 to 16cm H20 on resmed 11 airsense machine. Adjusted his pressure to auto CPAP 6 to 12 cm H20 due to low median pressures and mouth dryness. ?? He is using an Airtouch F20 FFM in Medium; tried the small and found it to be too small for him. The medium is a good fit and he finds it comofrtbale. He does note waking up some nights with a dry mouth and we reviewed how to adjust humidity and tubetemp settings for comfort. Humidity set to 4, EPR set to 2. ?? He is vitaly for a cardiac procedure later this week. ?? Will revist titration PSG at next visit in 1 month. ?? 2.??Nocturnal hypoxemia??G47.34 I provided greater than??30??minutes in the care of this patient, more than half the time was spentin [id number] counseling. ?with comorbidities of ??Afib, chronic back pain, HTN, rheumatoid arthritis, chronic insomnia (ambien 10mg, trazodone 50mg), obesity, hx of Lyme disease, HLD, chronic pain on Hydrocodone, asthma ?? Clinical Data Reviewed: Moodus Sleepiness Scale: 04/04 ?? Machine Download Data:??Resmed AirSense 11 Auto CPAP?? PAP Settings: ??Auto CPAP??6 to 16??CmH2O Date Range: ?10/17/23 - 11/15/23 Days with Usage >=4 hours: 57%? Avg Usage per Day Used: ??4hr 29min Mean/Median Pressure: ?6.9 90th-tile/95th-tile Pressure: ??10.5?? Median-90th%tile Leak?0.0/16.1 Avg Treatment ??AHI: ??1.7/hr ? Sleep Clinical Timeline:?? 11/03/2011: Diagnostic PSG. C/o loud snoring, observed apneic periods, nocturnal gasping, frequent nocturnal awakenings. ESS 06/04. BMI 33.9 kg/m2. Impression: 1. Borderline mild obstructive sleep apnea. AHI 5.4/hr. REM AHI 11.9/hr. Mean oxygen saturation: 92% on room air. SaO2 Emre: 89% on room air. 2. Extremely poor sleep consolidation and sleep efficiency with poor sleep hygiene - patient watching TV from 12:54am to 3:30am. 3. Prolonged REM latency with normal REM percentage with no underlying significant history of narcolepsy. Certainly the overall picture is not suggestive of underlying narcolepsy either. 4. Patient is currently on opiate painkillers and smokes marijuana on an as needed basis. ?? 03/11/2012: Last Sleep OV with Dr. Guillen, pt chose to discontinue CPAP after trying for 6 weeks, was unable to tolerate and pursue oral appliance evaluation. Pt was also made an OA but was also unable to tolerate after trying for 6 weeks. ? 04/22/2023: New patient sleep consult/re-evaluation at the kind request of Dr. Meyers. snoring, frequent nocturnal awakenings, nonrestorative sleep, waking up gasping for air, restless sleep, changes to mood, ESS 7/24, Warwick Questionnaire 3 out of 3. Patient is taking Ambien 10mg, Trazodone 50mg for insomnia nightly, and Hydrocodone for chronic pain. Drinks alcohol and smokes marijuana for sleep nightly. ?? 06/30/2023: Diagnostic PSG. Wt.: 253.2 lbs. ??BMI = 36.33 kg/m2.?? IMPRESSION: 1.??Mild Obstructive Sleep Apnea by RDI associated with significant nocturnal hypoxemia and sleep fragmentation?? 2.??Overall AHI: 3.5/hr; Overall RDI: 8.1/hr; REM AHI: 0.0/hr; Supine AHI: 7/hr; Right Lateral AHI:1 /hr; Left Lateral AHI: 4/hr; Prone AHI: N/A/hr. 3.??Mean SpO2: 89% and Emre SpO2: 83% on Room Air; 161.0 minutes spent with SpO2 less than or equal to 88% on Room Air. 4.??No evidence of Periodic Limb Movement Disorder seen during this study. PLM index: 0.8/hr, PLM arousal index: 0.2/hr. 5.??Frequent leg movements observed in association with respiratory events, which did not meet criteria to be included in Periodic Limb Movement Index. 6.??Atrial fibrillation seen on EKG, consistent with history. RECOMMENDATIONS: 1.??Given significant hypoxemia along with TYRON, the first line therapy is CPAP therapy with mask ofchoice, heated humidification, and ramp and return to the Sleep Lab for formal titration study to monitor that his hypoxemia has resolved. ?? 07/23/2023: Start auto CPAP??6 to 16cm h20, pt has struggled with CPAP tolerance and mask fit in the past but is willing to try it again.??Once acclimated, will order a titration PSG given his VERY significant nocturnal hypoxemia and comorbid afib, asthma, and daily marijuana smoking. Pt continues to take HydroCone qAM, Ambien 10mg and Trazodone 50mg at bedtime. He is now being followed by Anat LEDESMA at [facility]. ?? 11/18/2023:??NEW CPAP user f2f visit. Adjusted pressures in office to auto CPAP 6 to 12cm H20, doing??very well acclimating to CPAP. Machine settings reviewed in office, education done. ? Current Mask: Airtouch F20 Medium ?? Today's Assessment and Plan: See above ?? Follow up: 1 month or sooner if needed. ? Remote Scribed by Seble Elaine Problem List/Past Medical History Ongoing Adenomatous polyp of colon Arthritis Atrial fibrillation Benign neoplasm of cerebral meninges Bilateral shoulder joint pain Carpal tunnel syndrome Chronic gouty arthritis Chronic pain Claustrophobia Degeneration of cervical intervertebral disc Diverticulosis of colon Dupuytren's contracture Herniation of lumbar intervertebral disc with sciatica Hyperglycemia Hyperlipidemia Hypertensive disorder Insulin resistance Lyme disease Microscopic hematuria Moderate persistent asthma Muscle pain [...] Medications What How Much When Why Instructions Unchanged adalimumab (Humira Pen 40 mg/ 0.8 mL subcutaneous kit) 2 unknown unit, 0 Refill(s) ?? Unchanged apixaban (Eliquis 5 mg oral tablet) 1 tab Oral (given by mouth) 2 times a day Duration: 90 Days Unchanged atorvastatin (atorvastatin 20 mg oral tablet) 1 tab Oral (given by mouth) Every day Unchanged DULoxetine (DULoxetine 30 mg oral delayed [...] tablets daily for upcoming wean. ?? Unchanged hydrOXYzine (hydrOXYzine hydrochloride 50 mg oral tablet) 30 EA, TAKE ONE TABLET BY MOUTH EVERY DAY WITH EVENING MEAL ?? Unchanged ipratropium-albuterol (Combivent Respimat CFC free [...] until patient responds ?? Unchanged Other Pres[facility]) 90 EA, TAKE ONE TABLET BY [...] whole do not crush or chew ?? Allergies No Known Medication Allergies allopurinol??(Skin rash) ketoconazole??(Skin rash) Social History Alcohol Current, Liquor, Daily Electronic Cigarette/Vaping Electronic Cigarette Use: Never. Home/Environment Living situation: Home/Independent. Nutrition/Health Caffeine intake amount: diet coke 1 can daily. Substance Use Current, Marijuana, Daily Tobacco Never tobacco user Tobacco Use:. Family History Other: Father. Immunizations Vaccine Date Status influenza virus vaccine, inactivated 08/22/2022 Given Comments : verified by [facility]. SARS-CoV-2 (COVID-19) mRNA-1273 vaccine 02/01/2021 Recorded SARS-CoV-2 (COVID-19) mRNA-1273 vaccine 01/07/2021 Recorded zoster vaccine, inactivated - Not Given Comments : Patient Refuses Patient Declined influenza virus vaccine, inactivated 07/08/2013 Recorded tetanus/diphth/pertuss (Tdap) adult/adol 06/21/2012 Recorded Electronically Signed on 11/18/23 12:09 PM Arely Hanley PROJECT MANAGEMENT INTERN Electronically Signed on 11/18/23 11:52 AM Seble Elaine Patient Care team information Care Team Personnel Name: Astrid Mcdonough MD Position: Physician Member Role: Informed Provider Address: Address: [address] [place] [address] [place] [address] Care Team Related Persons Name: VADIM COSTA
--- OUTSIDE RECORDS SUMMARY | 2024-08-29 14:10 | XMS_ITS | Continuity of Care Document ---
Author Organization [facility] Address [address] [place] [address] Care Team Providers Care Renal Social Worker Name Role Phone Astrid Mcdonough Primary Care Physician Encounter [facility] Date(s): 09/17/23 - 09/17/23 [facility] [address] [place] [address] Discharge Disposition: Home Allergies, Adverse Reactions, Alerts [...] Spine Lumbosacral 2 or 3 Views 12/25/22 * NM Myocardial Rest Stress 2 Day Protocol 09/17/23 Immunizations Given and Recorded Vaccine Date Status [...] Daily, # 90 tab, 2 Refill(s), Pharmacy: [facility] Start Date: 06/16/23 Status: Ordered Combivent Respimat CFC free 20 mcg-100 mcg/inh inhalation aerosol 1 puffs, Inhale, As Directed, # 4 g, 0 Refill(s) Start Date: 03/19/23 Status: Ordered DULoxetine 30 mg oral delayed release capsule 30 mg = 1 cap, Oral, BID, # 180 cap, 3 Refill(s), Pharmacy: [facility] Start Date: 07/11/23 Stop Date: 07/05/24 Status: Ordered Eliquis 5 mg oral tablet 5 mg = 1 tab, Oral, BID, # 180 tab, 3 Refill(s), Pharmacy: [facility] Start Date: 07/30/23 Stop Date: 07/24/24 Status: Ordered ergocalciferol 1.25 mg (50,000 intl units) oral capsule 50,000 IntlUnit = 1 cap, Oral, every 2 wk, as directed, # 7 cap, 3 Refill(s), Pharmacy: [facility] Start Date: 07/22/22 Stop Date: 07/17/23 Status: Ordered febuxostat 40 mg oral tablet 1 tab, Oral, Daily, # 90 tab, 3 Refill(s), Pharmacy: [facility], 180.34, cm, 07/23/23 9:23:00 EDT, Height, [...] wean., # 168 tab, 0 Refill(s), Pharmacy: [facility] Start Date: 07/27/23 Stop Date: 08/24/23 Status: Ordered HYDROcodone-acetaminophen 10 mg-325 mg oral tablet 1 tab, Oral, every 4 hr, PRN as needed for pain, Take 1 tablet every 4-6 hours as needed for severepain. Recommendations to decrease to 5 tablets daily for upcoming wean., # 168 tab, 0 Refill(s), Pharmacy: [facility], 180.34, cm, 07/23/23 9:23:00 EDT, Height, 117.93, kg, 09/08/23 10:25:00 EST, Weight Dosing Start Date: 09/08/23 Stop Date: 10/06/23 Status: Ordered hydrOXYzine hydrochloride 50 mg oral tablet 30 EA, TAKE ONE TABLET BY MOUTH EVERY DAY WITH EVENING MEAL, 0 Refill(s) Start Date: 03/19/23 Status: Ordered ketoconazole 2% topical cream 1 ingacio, Topical, BID, to affected area. Anti-fungal for yeast infection., # 60 g, 0 Refill(s), Pharmacy: [facility] Start Date: 08/22/22 Stop Date: 09/19/22 Status: Ordered losartan 50 mg oral tablet 50 mg = 1 tab, Oral, Daily, # 90 tab, 2 Refill(s), Pharmacy: [facility] Start Date: 03/19/23 Status: Ordered Metoprolol Succinate ER 50 mg oral tablet, extended release 50 mg = 1 tab, Oral, Daily, # 90 tab, 3 Refill(s), Pharmacy: [facility], 180.34, cm, 07/23/23 9:23:00 EDT, Height, 117.93, kg, 09/08/23 10:25:00 EST, Weight Dosing Start Date: 09/14/23 Stop Date: 09/08/24 Status: Ordered Narcan 4 mg/0.1 mL nasal spray 1 sprays, Nasal, Once, PRN other (see comment), may repeat every 2 to 3 minutes until patient responds, # 2 EA, 0 Refill(s), Pharmacy: [facility] Start Date: 09/25/22 Status: Ordered sildenafil 100 mg oral tablet 1 tab, Oral, Daily, # 10 tab, 3 Refill(s), Pharmacy: [facility], 180.34, cm, 07/23/23 9:23:00 EDT, Height Start Date: 08/26/23 Stop Date: 12/24/23 Status: Ordered traZODone 50 mg oral tablet 1 tab, Oral, every night at bedtime, # 90 tab, 3 Refill(s), Pharmacy: [facility] Start Date: 03/19/23 Stop Date: 03/13/24 Status: Ordered triamcinolone 0.025% topical cream 1 ignacio, Topical, BID, PRN itching/rash, apply a thin film to affected area Steroid cream for itchingand redness., # 60 g, 0 Refill(s), Pharmacy: [facility] Start Date: 08/22/22 Stop Date: 09/05/22 Status: Ordered zolpidem 10 mg oral tablet 10 mg = 1 tab, Oral, every night at bedtime, swallow whole do not crush or chew, # 28 tab, 6 Refill(s), Pharmacy: [facility], 180.34, cm, 07/23/23 9:23:00 EDT, Height, [...] Physician Member Role: Informed Provider Address: Address: [address] [place] [address] [place] [address] [place] Care Team Related Persons Name: VADIM COSTA Address: Home
--- OUTSIDE RECORDS SUMMARY | 2024-08-29 14:10 | XMS_ITS | Continuity of Care Document ---
Author Organization [facility] Address [address] [place] [address] Care Team Providers Care Convex Grinder Name Role Phone Ceasar Astrid Primary Care Physician [phone] Encounter [facility] Date(s): 02/19/24 - 02/19/[address] [address] Encounter Diagnosis Dizziness(Discharge Diagnosis) - 02/19/24 Conjunctivitis(Discharge Diagnosis) - 02/19/24 Atrial fibrillation(Discharge Diagnosis) - 02/19/24 Discharge Disposition: Home or Self Care Attending Physician: Darci Dailey MD Admitting Physician: Darci Dailey MD Allergies, Adverse Reactions, Alerts No Known Medication Allergies Substance Reaction Severity Status allopurinol Skin rash Unknown Active ketoconazole 1 Skin rash Unknown Active 1patient states the rash was from allopurinol not this, and he has used it without issue.%0ALast modified by Alysia Alcaraz 12-24-2020, 08:31 Assessment and Plan Extracted from: Title:Clinical Document Author:Maru Steve te:02/19/24 Diagnosis: 1. Dizziness Comment: Diagnosis: 2. Conjunctivitis Comment: Diagnosis: 3. Atrial fibrillation Comment: Diagnosis: Dizziness Comment: Additional Orders: Comment: Other status: CV EKG ED,02/19/24 12:40:00 EDT, Routine, Reason: Dyspnea, Stop date and time 02/19/24 12:40:00 EDT, ORD_SET_REQ_DT_RANGE, [facility]ner's Internal Person Id(Complete) Extracted from: Title:ED Provider Note Author:Darci Dailey MD Date:02/19/24 1.??Dizziness??R42 Ordered: Discharge Patient, 02/19/24 13:36:00 EDT, Home Independently, Constant Indicator ?? 2.??Conjunctivitis??H10.9 Ordered: Discharge Patient, 02/19/24 13:36:00 EDT, Home Independently, Constant Indicator ?? 3.??Atrial fibrillation??I48.91 Ordered: Discharge Patient, 02/19/24 13:36:00 EDT, Home Independently, Constant Indicator ?? Orders: erythromycin 0.5% ophthalmic ointment, 1 ignacio, Eye-Both, QID, X 5 days, # 3.5 g, 0 Refill(s), 02/24/24 13:33:00 EDT, Pharmacy: [id number], 179, cm, 12/23/23 10:23:00 EDT, Height, 115.67, kg, 12/23/23 10:25:00 EDT, Weight Dosing erythromycin 0.5% ophthalmic ointment, 1 ignacio, Eye-Both, Ointment, Once, First Dose: 02/19/24 13:32:00 EDT, Stop Date: 02/19/24 13:32:00 EDT, Physician Stop, STAT .Morphology (NCTY), Blood, Stat, Collected, 02/19/24 12:49:00 EDT, Once, Nurse collect, [id number] CV EKG ED, 02/19/24 13:00:00 EDT, Routine, Reason: ED - empiric, Stop date and time 02/19/24 13:00:00 EDT, ORD_SET_REQ_DT_RANGE, Sarah's Internal Person Id CV EKG ED, 02/19/24 12:40:00 EDT, Routine, Reason: Dyspnea, Stop date and time 02/19/24 12:40:00 EDT, ORD_SET_REQ_DT_RANGE, Sarah's Internal Person Id EVENT MONITORING PHYSICIAN, 02/19/24 13:32:00 EDT, Stop date 02/19/24 13:32:00 EDT Future Appointments Functional Status 02/19/24 Family Member Travel History No recent t ravel Recent Travel History No recent travel Other exposure to Infectious Disease Non e Immunizations Given and Recorded Vaccine Date Status [...] by CHANORN. 2Result Comment: Patient Declined Medications [facility] Prescription 90 EA, TAKE ONE TABLET BY MOUTH EVERY DAY, 0 Refill(s) Start Date: 03/19/23 Status: Ordered atorvastatin 40 mg oral tablet 40 mg = 1 tab, Oral, Daily, # 90 tab, 3 Refill(s), Pharmacy: [facility], 179.07, cm, 12/07/23 9:04:00 EST, Height, 117.75, kg, 12/07/23 9:12:00 EST, Weight Dosing Start Date: 12/07/23 Status: Ordered Combivent Respimat CFC free 20 mcg-100 mcg/inh inhalation aerosol 1 puffs, Inhale, As Directed, # 4 g, 0 Refill(s) Start Date: 03/19/23 Status: Ordered DULoxetine 30 mg oral delayed release capsule 30 mg = 1 cap, Oral, BID, # 180 cap, 3 Refill(s), Pharmacy: [facility] Start Date: 07/11/23 Stop Date: 07/05/24 Status: Ordered Eliquis 5 mg oral tablet 5 mg = 1 tab, Oral, BID, # 180 tab, 3 Refill(s), Pharmacy: [facility], 180.34, cm, 07/23/23 9:23:00 EDT, Height, 117.93, kg, 09/08/23 10:25:00 EST, Weight Dosing Start Date: 10/22/23 Stop Date: 10/16/24 Status: Ordered ergocalciferol 1.25 mg (50,000 intl units) oral capsule 50,000 IntlUnit = 1 cap, Oral, every 2 wk, as directed, # 7 cap, 3 Refill(s), Pharmacy: [facility] Start Date: 07/22/22 Stop Date: 07/17/23 Status: Ordered erythromycin 0.5% ophthalmic ointment 1 ignacio, Eye-Both, QID, X 5 days, # 3.5 g, 0 Refill(s), 02/24/24 12:33:00 PM CDT, Pharmacy: [facility], 179, cm, 12/23/23 10:23:00 EDT, Height, 115.67, kg, 12/23/23 10:25:00 EDT, Weight Dosing Start Date: 02/19/24 Stop Date: 02/24/24 Status: Ordered febuxostat 40 mg [...] weaning, # 152 tab, 0 Refill(s), Pharmacy: [facility], 179.07, cm, 11/18/23 11:12:00 EST, Height, 119.65, kg, 12/01/23 9:53:00 EST, Weight Dosing Start Date: 12/01/23 Stop Date: 12/29/23 Status: Ordered HYDROcodone-acetaminophen 10 mg-325 mg oral tablet 1 tab, Oral, every 4 hr, PRN as needed for pain, Take 1 tablet every 4-6 hours as needed for severepain. Minimize use to prepare for weaning, # 152 tab, 0 Refill(s), Pharmacy: [facility], 179.07, cm, 11/18/23 11:12:00 EST, Height, 119.65, kg, 12/01/23 9:53:00 EST, Weight Dosing Start Date: 12/01/23 Stop Date: 12/29/23 Status: Ordered HYDROcodone-acetaminophen 10 mg-325 mg oral tablet 1 tab, Oral, every 4 hr, Take 1 tablet every 4-6 hours as needed for severe pain. Minimize use to prepare for weaning, # 152 tab, 0 Refill(s), Pharmacy: [facility], 179.07, cm, 11/18/23 11:12:00 EST, Height, 119.65, kg, 12/01/23 9:53:00 EST, Weight Dosing Start Date: 12/01/23 Stop Date: 12/29/23 Status: Ordered ketoconazole 2% topical cream 1 ignacio, Topical, BID, to affected area. Anti-fungal for yeast infection., # 60 g, 0 Refill(s), Pharmacy: [facility] Start Date: 08/22/22 Stop Date: 09/19/22 [...] responds, # 2 EA, 0 Refill(s), Pharmacy: [facility] Start Date: 09/25/22 Status: Ordered sildenafil 100 mg oral tablet 1 tab, Oral, Daily, # 10 tab, 1 Refill(s), Pharmacy: [facility], 179, cm, 12/23/23 10:23:00 EDT, Height, 115.67, kg, 12/23/23 10:25:00 EDT, Weight Dosing Start Date: 12/29/23 Stop Date: 02/27/24 Status: Ordered traZODone 50 mg oral tablet 1 tab, Oral, every night at bedtime, # 90 tab, 3 Refill(s), Pharmacy: [facility] Start Date: 03/19/23 Stop Date: 03/13/24 Status: Ordered triamcinolone 0.025% topical cream 1 ignacio, Topical, BID, PRN itching/rash, apply a thin film to affected area Steroid cream for itchingand redness., # 60 g, 0 Refill(s), Pharmacy: [facility] Start Date: 08/22/22 Stop Date: 09/05/22 Status: Ordered zolpidem 10 mg oral tablet 10 mg = 1 tab, Oral, every night at bedtime, swallow whole do not crush or chew, # 28 tab, 2 Refill(s), Pharmacy: [facility], 179.07, cm, 11/18/23 11:12:00 EST, Height, 119.65, kg, 12/01/23 9:53:00 EST, Weight Dosing Start Date: 12/01/23 Stop Date: 02/23/24 Status: Ordered Mental Status 02/19/24 Eye Opening Response [place] Spontaneous ly Best Verbal Response Zachery Oriented Best Motor Response Zachery Obeys comman ds [place] Coma Score 15 Problem List Condition Confirmation Course Effective Dates [...] right ankle Results Laboratory List Name Date Magnesium Level 02/19/24 .Morphology (NCTY) 02/19/24 CBC w/ Diff 02/19/24 Comprehensive Metabolic Panel (CMP) 02/18 Troponin-I 02/19/24 Automated Diff 02/19/24 Most recent to oldest [Reference Range]: 1 WBC [5.0-10.0 x10^3/mcL] 7.2 x10^3/mcL (02/19/24 12:49 PM) RBC [4.6-6.0 x10^6/mcL] 4.1 x10^6/mcL *LOW* (02/19/24 PM) Neutro Auto [40.0-75.0 %] 52.3 % (02/19/24 PM) Lymph Auto [20.0-50.0 %] 33.4 % (02/19/24 PM) Boundary Auto [2.0-15.0 %] 11.0 % (02/19/24 PM) Basophil Auto [0.0-1.0 %] 0.8 % (02/19/24 PM) BUN [7-18 mg/dL] 9 mg/dL (02/19/24 PM) Glucose Level [74-106 mg/dL] 115 mg/dL *HI* (02/19/24 PM) Potassium Level [3.5-5.1 mmol/L] 4.5 mmo l/L (02/19/24 PM) MCV [80.0-96.0 fL] 104.8 fL *HI* (02/19/24:49 PM) RBC Morph Abnormal (02/19/24 PM) AST [15-37 unit/L] 51 unit/L *HI* (02/19/24 PM) ALT [16-63 unit/L] 42 unit/L (02/19/2449 PM) MCHC [31.0-35.0 g/dL] 33.5 g/dL (02/19/24 PM) Troponin-I [0.0-76.2 pg/mL] 5.1 pg/mL (02/19/24:49 PM) Sodium Level [136-145 mmol/L] 136 mmol/L (02/19/2449 PM) Hct [41.0-51.0 %] 43.3 % (02/19/24 PM) Calcium Level [8.5-10.1 mg/dL] 9.9 mg/dL (02/19/2449 PM) Albumin Level [3.4-5.0 g/dL] 4.0 g/dL (02/19/2449 PM) Protein Total [6.4-8.2 g/dL] 7.9 g/dL (02/19/24 PM) MCH [26.0-32.0 pg] 35.1 pg *HI* (02/19/24 PM) Magnesium Level [1.8-2.4 mg/dL] 1.9 mg/d L (02/19/24 1:05 PM) Neutro Absolute 3.8 x10^3/mcL *NA* (02/19/24 PM) Bilirubin Total [0.2-1.0 mg/dL] 1.2 mg/d L *HI* (02/19/24 PM) Hgb [14.0-18.0 g/dL] 14.5 g/dL (02/19/24 PM) Alk Phos [46-146 unit/L] 59 unit/L (02/19/24 PM) Platelets [130-450 x10^3/mcL] 180 x10^3/ mcL (02/19/2449 PM) CO2 [21-32 mmol/L] 28 mmol/L (02/19/24 PM) Macrocyte Small (02/19/24 PM) eGFR Non-AA [>=60] 58 *LOW* (02/19/24: PM) eGFR AA [>=60] 58 *LOW* (02/19/24 PM) Chloride Level [98-107 mmol/L] 98 mmol/L (02/19/24 PM) RDW-CV [11.5-14.5 %] 14.3 % (02/19/24: PM) Imm Gran Auto [0.0-0.9 %] 0.3 % (02/19/24: PM) Slide Review Morph Only (02/19/24 PM) Anisocyte Small (02/19/24 PM) Creatinine Level [0.70-1.30 mg/dL] 1.38 mg/dL *HI* (02/19/24 PM) Eos, Auto [1.0-6.0 %] 2.2 % (5/10/24 12:49 PM) Vital Signs Most recent to oldest [Reference Range]: 1 2 3 Temperature Temporal Artery [36-38 Deg C] 36.2 Deg C (02/19/24 12:42 PM) Peripheral Pulse Rate [60-100 bpm] 68 bpm (02/19/24 1:45 PM) 73 bpm (02/19/24 1:06 PM) 79 bpm (02/19/24 12:42 PM) Respiratory Rate [12-24 br/min] 13 br/min (02/19/24 1:45 PM) 13 br/min (02/19/24 1:06 PM) 12 br/min (02/19/24 12:42 PM) Blood Pressure [90-140/60-90 mmHg] 142/91mmHg *HI* (02/19/24 1:45 PM) 151/91mmHg *HI* (02/19/24 1:06 PM) 156/89mmHg *HI* (02/19/24 12:42 PM) Mean Arterial Pressure, Cuff [65-140 mmHg] 108 mmHg (02/19/24 1:45 PM) 111 mmHg (02/19/24 1:06 PM) 111 mmHg (02/19/24 12:42 PM) Weight Estimated 115 kg (02/19/24 12:42 PM) Body Mass Index Estimated 35.89 kg/m2 (02/19/24 12:42 PM) Height/Length Estimated 179 cm (02/19/24 12:42 PM) Social History Social History Type Response Tobacco Never tobacco user T obacco Use:. Sex Male Physician Emergency department Note * Darci Dailey MD: PERFORM Event Display: ED Note Physician Authored Date: [id number] BRENDA JAVED :1960 Age:64 years Sex:Male Visit Date:02/19/2024 Primary Care Physician: Astrid Mcdonough MD Basic Information Time Seen: Darci Dailey MD / 02/19/2024 12:48 Chief Complaint I'm in afib all the time, i'm due for a heart procedure at [facility] on the for a consult to have it done. I am very dizzy for a few days now. 79 HR afib noted on arrival. History Of Present Illness: Presenting concern is lightheadedness and dizziness.?? Time of onset is over the past 3 years.?? Course is??essentially continuous.?? Aggravated by standing up. Review of Systems: Negative for fever, chest pain, palpitations, GI symptoms, symptoms.?? Positive for??shortness of breath Physical Exam Vitals & Measurements T:??36.2?C ??(Temporal Artery)?? HR:??79??(Peripheral)?? RR:??12?? BP:??156/89?? SpO2:??99%?? HT:??179??cm?? WT:??115??kg??(Estimated)?? BMI:??35.89?? O2 Therapy:??Room air?? Orthostatic Vitals: Pulse Supine: 75 bpm (02/19/24 13:00:00) Pulse Sittin bpm (02/19/24 13:00:00) Pulse Standin bpm (02/19/24 13:00:00) Systolic Blood Pressure Supine:??148 mmHg??High (02/19/24 13:00:00) Diastolic Blood Pressure Supine:??97 mmHg??High (02/19/24 13:00:00) Systolic Blood Pressure Sitting:??147 mmHg??High (02/19/24 13:00:00) Diastolic Blood Pressure Sitting:??99 mmHg??High (02/19/24 13:00:00) Systolic Blood Pressure Standing:??148 mmHg??High (02/19/24 13:00:00) Diastolic Blood Pressure Standing:??101 mmHg??High (02/19/24 13:00:00) No distress. ??Normal breath sounds.?? Heart sounds are regular. ??Abdomen obese. ??Extremities without edema??mental status normal. ??Orthostatic vital signs normal Medical Decision Making: Problem complexity is moderate. ??Data complexity is??low.?? Risk of management are moderate. ??MDMcoding [id number]??w.? Procedure No Qualifying Data Assessment/Plan 1.??Dizziness??R42 Ordered: Discharge Patient, 02/19/24 13:36:00 EDT, Home Independently, Constant Indicator ?? 2.??Conjunctivitis??H10.9 Ordered: Discharge Patient, 02/19/24 13:36:00 EDT, Home Independently, Constant Indicator ?? 3.??Atrial fibrillation??I48.91 Ordered: Discharge Patient, 02/19/24 13:36:00 EDT, Home Independently, Constant Indicator ?? Orders: erythromycin 0.5% ophthalmic ointment, 1 ignacio, Eye-Both, QID, X 5 days, # 3.5 g, 0 Refill(s), 02/24/24 13:33:00 EDT, Pharmacy: [id number], 179, cm, 12/23/23 10:23:00 EDT, Height, 115.67, kg, 12/23/23 10:25:00 EDT, Weight Dosing erythromycin 0.5% ophthalmic ointment, 1 ignacio, Eye-Both, Ointment, Once, First Dose: 02/19/24 13:32:00 EDT, Stop Date: 02/19/24 13:32:00 EDT, Physician Stop, STAT .Morphology (NCTY), Blood, Stat, Collected, 02/19/24 12:49:00 EDT, Once, Nurse collect, [id number] CV EKG ED, 02/19/24 13:00:00 EDT, Routine, Reason: ED - empiric, Stop date and time 02/19/24 13:00:00 EDT, ORD_SET_REQ_DT_RANGE, Cerpapa's Internal Person Id CV EKG ED, 02/19/24 12:40:00 EDT, Routine, Reason: Dyspnea, Stop date and time 02/19/24 12:40:00 EDT, ORD_SET_REQ_DT_RANGE, Cerpapa's Internal Person Id EVENT MONITORING PHYSICIAN, 02/19/24 13:32:00 EDT, Stop date 02/19/24 13:32:00 EDT Medication Reconciliation New Prescription erythromycin ophthalmic (erythromycin 0.5% ophthalmic ointment)1 Application Both eyes 4 times a day for 5 Days. Refills: 0. ?? Unchanged apixaban (Eliquis 5 mg oral tablet)1 tab Oral (given by mouth) 2 times a day for 90 Days. Refills: 3. ?? atorvastatin (atorvastatin 40 mg oral tablet)1 tab Oral (given by mouth) every day. Refills: 3. ?? DULoxetine (DULoxetine 30 mg oral delayed release capsule)1 Capsules Oral (given by mouth) 2 times a day for 90 Days. Refills: 3. ?? ergocalciferol (ergocalciferol 1.25 mg (50,000 intl units) oral capsule)1 Capsules Oral (given by mouth) every other week for 90 Days. as directed. Refills: 3. ?? febuxostat (febuxostat 40 mg oral tablet)1 tab Oral (given by mouth) every day for 90 Days. Refills: 3. ?? HYDROcodone-acetaminophen (HYDROcodone-acetaminophen 10 mg-325 mg oral tablet)1 tab Oral (given by mouth) every 4 hours as needed as needed for pain for 28 Days. Take 1 tablet every 4-6 hours as needed for severe pain. Recommendations to decrease to 5 tablets daily for upcoming wean.. Refills: 0. ?? HYDROcodone-acetaminophen (HYDROcodone-acetaminophen 10 mg-325 mg oral tablet)1 tab Oral (given by mouth) every 4 hours as needed as needed for pain for 28 Days. Take 1 tablet every 4-6 hours as needed for severe pain. Minimize use to prepare for weaning. Refills: 0. ?? HYDROcodone-acetaminophen (HYDROcodone-acetaminophen 10 mg-325 mg oral tablet)1 tab Oral (given by mouth) every 4 hours as needed as needed for pain for 28 Days. Take 1 tablet every 4-6 hours as needed for severe pain. Minimize use to prepare for weaning. Refills: 0. ?? HYDROcodone-acetaminophen (HYDROcodone-acetaminophen 10 mg-325 mg oral tablet)1 tab Oral (given by mouth) every 4 hours for 28 Days. Take 1 tablet every 4-6 hours as needed for severe pain. Minimize use to prepare for weaning. Refills: 0. ?? ipratropium-albuterol (Combivent Respimat CFC free 20 mcg-100 mcg/inh inhalation aerosol)1 Puffs Inhale (breathe in) As Directed. ?? ketoconazole topical (ketoconazole 2% topical cream)1 Application Topical (on the skin) 2 times a day for 28 Days. to affected area. Anti-fungal for yeast infection.. Refills: 0. ?? losartan (losartan 50 mg oral tablet)1 tab Oral (given by mouth) every day. Refills: 3. ?? metoprolol (Metoprolol Succinate ER 50 mg oral tablet, extended release)1 tab Oral (given by mouth)every day for 90 Days. Refills: 3. ?? naloxone (Narcan 4 mg/0.1 mL nasal spray)1 Sprays Nasal (into the nose) once as needed other (see comment). may repeat every 2 to 3 minutes until patient responds. Refills: 0. ?? Other Prescription ([facility] Prescription)90 EA, TAKE ONE TABLET BY MOUTH EVERY DAY. ?? sildenafil (sildenafil 100 mg oral tablet)1 tab Oral (given by mouth) every day for 30 Days. Refills: 1. ?? traZODone (traZODone 50 mg oral tablet)1 tab Oral (given by mouth) every night at bedtime for 90 Days. Refills: 3. ?? triamcinolone topical (triamcinolone 0.025% topical cream)1 Application Topical (on the skin) 2 times a day as needed itching/rash for 14 Days. apply a thin film to affected area Steroid cream for itching and redness.. Refills: 0. ?? zolpidem (zolpidem 10 mg oral tablet)1 tab Oral (given by mouth) every night at bedtime for 28 Days. swallow whole do not crush or chew. Refills: 2. Problem List/Past Medical History Ongoing Adenomatous polyp [...] Open reduction and internal fixation of fracture Allergies No Known Medication Allergies allopurinol??(Skin rash) ketoconazole??(Skin rash) Social History Alcohol Current, Liquor, Daily Electronic Cigarette/Vaping Electronic Cigarette Use: Never. Home/Environment Living situation: Home/Independent. Nutrition/Health Caffeine intake amount: diet coke 1 can daily. Substance Use Current, Marijuana, Daily Tobacco Never tobacco user Tobacco Use:. Family History Other: Father. Lab Results CBC and Differential?? LATEST RESULTS?? HISTORICAL RESULTS?? WBC?? 02/19/24 12:49?? 7.2?? 11/02/23?? 5.7?? RBC?? 02/19/24 12:49?? 4.1 ??Low?? 11/02/23?? 4.2 ??Low?? Hgb?? 02/19/24 12:49?? 14.5?? 11/02/23?? 14.6?? Hct?? 02/19/24 12:49?? 43.3?? 11/02/23?? 44.1?? MCV?? 02/19/24 12:49?? 104.8 ??High?? 11/02/23?? 105.5 ??High?? MCH?? 02/19/24 12:49?? 35.1 ??High?? 11/02/23?? 34.9 ??High?? MCHC?? 02/19/24 12:49?? 33.5?? 11/02/23?? 33.1?? RDW-CV?? 02/19/24 12:49?? 14.3?? 11/02/23?? 13.5?? Platelets?? 02/19/24 12:49?? 180?? 11/02/23?? 209?? Neutro Auto?? 02/19/24 12:49?? 52.3?? 11/02/23?? 42.3?? Lymph Auto?? 02/19/24 12:49?? 33.4?? 11/02/23?? 40.6?? Boundary Auto?? 02/19/24 12:49?? 11.0?? 11/02/23?? 12.8?? Eos, Auto?? 02/19/24 12:49?? 2.2?? 11/02/23?? 3.1?? Basophil Auto?? 02/19/24 12:49?? 0.8?? 11/02/23?? 1.0?? Imm Gran Auto?? 02/19/24 12:49?? 0.3?? 11/02/23?? 0.2?? Neutro Absolute?? 02/19/24 12:49?? 3.8?? 11/02/23?? 2.4?? Slide Review?? 02/19/24 12:49?? Morph Only?? 11/02/23?? Morph Only? Routine Chemistry?? LATEST RESULTS?? HISTORICAL RESULTS?? Sodium Level?? 02/19/24 12:49?? 136?? 11/02/23?? 140?? Potassium Level?? 02/19/24 12:49?? 4.5?? 11/02/23?? 4.8?? Chloride Level?? 02/19/24 12:49?? 98?? 11/02/23?? 104?? CO2?? 02/19/24 12:49?? 28?? 11/02/23?? 27?? Alk Phos?? 02/19/24 12:49?? 59?? 11/02/23?? 55?? AST?? 02/19/24 12:49?? 51 ??High?? 11/02/23?? 23?? ALT?? 02/19/24 12:49?? 42?? 11/02/23?? 32?? BUN?? 02/19/24 12:49?? 9?? 11/02/23?? 19 ??High?? Glucose Level?? 02/19/24 12:49?? 115 ??High?? 11/02/23?? 130 ??High?? Creatinine Level?? 02/19/24 12:49?? 1.38 ??High?? 11/02/23?? 1.50 ??High?? eGFR AA?? 02/19/24 12:49?? 58 ??Low?? 11/02/23?? 53 ??Low?? eGFR Non-AA?? 02/19/24 12:49?? 58 ??Low?? 11/02/23?? 53 ??Low?? Calcium Level?? 02/19/24 12:49?? 9.9?? 11/02/23?? 9.3?? Protein Total?? 02/19/24 12:49?? 7.9?? 11/02/23?? 7.6?? Albumin Level?? 02/19/24 12:49?? 4.0?? 11/02/23?? 3.6?? Bilirubin Total?? 02/19/24 12:49?? 1.2 ??High?? 11/02/23?? 1.0?? Magnesium Level?? 02/19/24 13:05?? 1.9? Cardiac Isoenzymes?? LATEST RESULTS?? Troponin-I?? 02/19/24 12:49?? 5.1? Electronically Signed on 02/19/24 01:37 PM Darci Dailey MD Emergency department Discharge instructions * Darci Dailey MD: PERFORM Event Display: ED Discharge Information Authored Date: [id number] BRENDA JAVDE :1960 Age:64 years Sex:Male Visit Date:02/19/2024 Primary Care Physician: Astrid Mcdonough MD Discharge Instructions We would like to thank you for allowing us to assist you with your healthcare needs. The following includes patient education materials and information regarding your injury/illness. Diagnosis from Today's Visit Dizziness Conjunctivitis Atrial fibrillation Discharge Vitals Temperature??(Temporal Artery) 97.2 ??F (36.2 ??C) Heart Rate??(Peripheral) 79 Respiratory Rate?? 12 Blood Pressure?? 156/89?? Blood Pressure?? 147/99(Sitting)?? Blood Pressure?? 148/101(Standing)?? Blood Pressure?? 148/97(Supine)?? SpO2?? 99% Height?? 70.47 in (179 cm) Weight??(Estimated) 253.58 lb (115 kg) BMI?? 35.89 Allergies No Known Medication Allergies allopurinol??(Skin rash) ketoconazole??(Skin rash) What to Do Next Instructions from Your Care Team I cannot explain your dizziness at this time. ??Your hemoglobin, kidney function, liver function, general body metabolism, cardiac enzymes are all within normal limits. ??It does not seem to be a neurologic issue nor does it seem to be related to??orthostatic hypotension. ??It may be related to your ??atrial fibrillation??the cardiac event monitor should help sort this out. ??Wear the quality assurance monitor chassis for 2 weeks. ??Follow-up with your primary care provider. ??Instill erythromycin??eye ointment in both eyes 4 times a day for 5 days.?? You have a mild case of conjunctivitis. ?? Darci Dailey,?? Upcoming Scheduled Appointments Thursday 9:00 AM EDT ?? With: Burton Tavarez MD Where: [facility] [address] [address] Status: Confirmed 2023 11:00 AM EDT ?? With: Arely Hanley NP Where: [facility] [address] [place] [address] Status: Confirmed Thursday 9:20 AM EDT ?? With: Anat Cross NP Where: [facility] [address] [place] [address] Status: Confirmed You were treated today on an emergency basis; it may be johansen to contact your primary care provider to notify them of your visit today. You may have been referred to your regular doctor or a specialist, please follow up as instructed. If your condition worsens or you can't get in to see the doctor, contact the Emergency Department. Medications What How Much When Why Instructions Next Dose New erythromycin ophthalmic (erythromycin 0.5% ophthalmic ointment) 1 Application Both eyes 4 times a day Duration: 5 Days Pickup at [facility] Unchanged apixaban (Eliquis 5 mg oral tablet) 1 tab Oral (given by mouth) 2 times a day Duration: 90 Days Unchanged atorvastatin (atorvastatin 40 mg oral tablet) 1 [...] until patient responds ?? Unchanged Other Prescription ([facility] Prescription) 90 EA, TAKE ONE TABLET BY [...] not crush or chew ?? Pharmacy Information [id number]: [address] [place], [place] [id number] [phone] Tests Performed Lab Test Name Test Result Date/Time WBC 7.2 x10^3/mcL 02/19/2024 12:49 EDT RBC 4.1 x10^6/mcL 02/19/2024 12:49 EDT Hgb 14.5 g/dL 02/19/2024 12:49 EDT Hct 43.3 % 02/19/2024 12:49 EDT MCV 104.8 fL 02/19/2024 12:49 EDT MCH 35.1 pg 02/19/2024 12:49 EDT MCHC 33.5 g/dL 02/19/2024 12:49 EDT RDW-CV 14.3 % 02/19/2024 12:49 EDT Platelets 180 x10^3/mcL 02/19/2024 12:49 EDT Neutro Auto 52.3 % 02/19/2024 12:49 EDT Lymph Auto 33.4 % 02/19/2024 12:49 EDT Boundary Auto 11.0 % 02/19/2024 12:49 EDT Eos, Auto 2.2 % 02/19/2024 12:49 EDT Basophil Auto 0.8 % 02/19/2024 12:49 EDT Imm Gran Auto 0.3 % 02/19/2024 12:49 EDT Neutro Absolute 3.8 x10^3/mcL 02/19/2024 12:49 EDT Slide Review Morph Only 02/19/2024 12:49 EDT Sodium Level 136 mmol/L 02/19/2024 12:49 EDT Potassium Level 4.5 mmol/L 02/19/2024 12:49 EDT Chloride Level 98 mmol/L 02/19/2024 12:49 EDT CO2 28 mmol/L 02/19/2024 12:49 EDT Alk Phos 59 unit/L 02/19/2024 12:49 EDT AST 51 unit/L 02/19/2024 12:49 EDT ALT 42 unit/L 02/19/2024 12:49 EDT BUN 9 mg/dL 02/19/2024 12:49 EDT Glucose Level 115 mg/dL 02/19/2024 12:49 EDT Creatinine Level 1.38 mg/dL 02/19/2024 12:49 EDT eGFR AA 58 02/19/2024 12:49 EDT eGFR Non-AA 58 02/19/2024 12:49 EDT Calcium Level 9.9 mg/dL 02/19/2024 12:49 EDT Protein Total 7.9 g/dL 02/19/2024 12:49 EDT Albumin Level 4.0 g/dL 02/19/2024 12:49 EDT Bilirubin Total 1.2 mg/dL 02/19/2024 12:49 EDT Magnesium Level 1.9 mg/dL 02/19/2024 13:05 EDT Troponin-I 5.1 pg/mL 02/19/2024 12:49 EDT Patient/Nutritional Chemist Signature Patient Name:BRENDA JAVED I have received this information and my questions have been answered. Patient/Nutritional Chemist Name: Patient/Nutritional Chemist Signature: Relationship to Patient: Witness Name/Signature: Date: Electronically Signed on: 02/19/2024 13:38 EDTSigned by:[facility] Discharge summary * Maru Steve: PERFORM Event Display: Discharge Note Authored Date: * Maru Steve: PERFORM Event Display: Discharge Note Authored Date: Diagnosis: 1. Dizziness Comment: Diagnosis: 2. Conjunctivitis Comment: Diagnosis: 3. Atrial fibrillation Comment: Diagnosis: Dizziness Comment: Additional Orders: Comment: Other status: CV EKG ED,02/19/24 12:40:00 EDT, Routine, Reason: Dyspnea, Stop date and time 02/19/24 12:40:00 EDT, ORD_SET_[email or web address]_RANGESarah's Internal Person Id(Complete) Electronically Signed on 02/19/24 01:57 PM Maru Steve Patient Care team information Care Team Personnel Name: Astrid Mcdonough MD Position: Physician Member Role: Informed Provider Address: Address: [address] [place] [address] [place] [address] Care Team Related Persons Name: VADIM COSTA
--- OUTSIDE RECORDS SUMMARY | 2024-08-29 14:10 | XMS_ITS | Continuity of Care Document ---
Author Organization [facility] or [facility] Address [address] [place] [address] Care Team Providers Care Put In Beat Adjuster Name Role Phone Astrid Mcdonough Primary Care Physician [phone] Encounter [id number] Date(s): 02/25/24 - 02/25/24 [facility] [address] [place] [address] Encounter Diagnosis Obstructive sleep apnea(Discharge Diagnosis) - 02/25/24 Discharge Disposition: Home or Self Care Attending [...] - Office Visit Note Author:Arely Motta NP Date:02/25/24 1.??Obstructive sleep apnea? ?G47.33 ??Brenda Esteban is a pleasant 64 year old male here for CPAP follow up. He has decreased compliance over the last month which is due to a few different issues that he is having currently. He is struggling with dry eyes which is making is hard to tolerate wearing his mask; he does not recall having dry eye issues before using CPAP. We discussed trying a different type of mask, as he is currently using a full face mask; he thinks he has tried a nasal mask before and did not like it. He breathes through his mouth and I advised he can try a nasal option again with chin strap or find a different type of FFM or hybrid mask. He would like to stick with his current mask and see how things go, doesn't want to make any changes today. ?? I reviewed his chart and pt was recently seen in ED for symptomatic Afib, with dizziness and lightheadedness. While he was there, he was also rx'ed erythomycin optho treatment for his eyes which he is using. Hopefully this will result in some improvement in his eye discomfort.?? Pt shares that he is scheduled to go to [facility] on 04/09 for afib cardioversion, plans to be a 3 day stay.? Download data reviewed and discussed with the patient. He has low compliance as I stated, but when he is using his CPAP he has very good treatment of his TYRON. Auto CPAP 6 to 12cm H20, tx AHI 2.0/hr. Will continue current pressures. ?? PCP note reviewed as well. Pt saw her yesterday. He endorses still taking Trazodone and Ambien at night for insomnia. He is also being weaned down on his hydrocodone, is taking 1-4 tabs per day now. He is not sure what the group home plan is for his pain management.? Encouraged patient to increase his compliance. He is having some trouble sleeping lately because of all the medical things he has going on, but plans to use his CPAP when he sleeps.? Plan for follow up in 6 months.? I provided greater than??40??minutes in the care of this patient, more than half the time was spent in [id number] counseling. ?with comorbidities of?Afib, chronic back pain, HTN, rheumatoid arthritis, chronic insomnia (ambien 10mg, trazodone 50mg), obesity, hx of Lyme disease, HLD, chronic pain on Hydrocodone, asthma ? Clinical Data Reviewed: [place] Sleepiness Scale: ?? [place] Sleepiness Scale:??11/04 (12/23/23) ? Machine Download Data:??Resmed AirSense 10 Auto CPAP?? PAP Settings: ?? Auto CPAP?? 6 to 12 CmH2O Date Range:?01/23/24 - 02/21/24 Days with Usage >=4 hours: 27%? Avg Usage per Day Used:?? 3hr 39min Mean/Median Pressure:?7.8 90th-tile/95th-tile Pressure: 10.5? Median-90th%tile Leak?? 0.6/13.5 Avg Treatment ??AHI:?? 2.0/hr ? Sleep Clinical Timeline:? 11/03/2011: Diagnostic PSG. [...] air, restless sleep, changes to mood, ESS 05/04, [place] Questionnaire 3 out of 3. Patient is [...] now being followed by Anat LEDESMA at [facility]. ?? 11/18/2023:??NEW CPAP user f2f visit. Adjusted pressures in office to auto CPAP 6 to 12cm H20, doing??very well acclimating to CPAP. Machine settings reviewed in office, education done. ? 12/23/2023: ??Patient continues to tolerate CPAP pressure change continue auto CPAP 6 to 12 cm H2O, excellent compliance and reduction in AHI 3.1/h. ??He is encouraged to replace his mask cushion as it is more than a month old??and he is noting??increased mask leakage. ??Given that he had significant nocturnal hypoxemia on his initial PSG recommended titration PSG to ensure??adequate treatment for both his TYRON and nocturnal hypoxemia. ??He is leaving for [place] and will be away for 3 weeks??plans to hopefully have his titration study scheduled sometime after that. ??He continues to take??hydrocodone qAM, Ambien 10mg and Trazodone 50mg at bedtime.?? History of A-fib, following at [facility] and [facility]. ??Had a recent appointment at [facility] to determine whether or not he is a candidate for cardioversion??versus medication. ?? 02/25/2024: Pt has decreased compliance and is encouraged to use his CPAP regularly again. Pt vitaly for cardioversion at [facility] at on 04/09 for his afib, recently has been symptomatic and went to the ED this month for afib. pt struggling with dry eyes with cpap but does not wish to change his mask, has rx eye ointment abx from ED.? Current Mask: Airtouch F20 Medium DME: [facility] ? Today's Assessment and Plan: ?? See above ?? Follow up: ?? 6 months or sooner if needed. ? Remote Scribed by Seble Elaine ? Future Appointments Immunizations Given and Recorded Vaccine Date Status [...] by CHANORN. 2Result Comment: Patient Declined Medications [facility] - [facility] [place], [place] Prescription 90 EA, TAKE ONE TABLET BY MOUTH EVERY DAY, 0 Refill(s) Start Date: 03/19/23 Status: Ordered atorvastatin 40 mg oral tablet 40 mg = 1 tab, Oral, Daily, # 90 tab, 3 Refill(s), [facility]: [facility], 179.07, cm, 12/07/23 9:04:00 EST, Height, 117.75, kg, 12/07/23 9:12:00 EST, Weight Dosing Start Date: 12/07/23 Status: Ordered Combivent Respimat CFC free 20 mcg-100 mcg/inh inhalation aerosol 1 puffs, Inhale, As Directed, # 4 g, 0 Refill(s) Start Date: 03/19/23 Status: Ordered DULoxetine 30 mg oral delayed release capsule 30 mg = 1 cap, Oral, BID, # 180 cap, 3 Refill(s), [facility]acy: [facility] Start Date: 07/11/23 Stop Date: 07/05/24 Status: Ordered Eliquis 5 mg oral tablet 5 mg = 1 tab, Oral, BID, # 180 tab, 3 Refill(s), [facility]acy: [facility], 180.34, cm, 07/23/23 9:23:00 EDT, Height, 117.93, kg, 09/08/23 10:25:00 EST, Weight Dosing Start Date: 10/22/23 Stop Date: 10/16/24 Status: Ordered ergocalciferol 1.25 mg (50,000 intl units) oral capsule 50,000 IntlUnit = 1 cap, Oral, every 2 wk, as directed, # 7 cap, 3 Refill(s), [facility]acy: [facility] Start Date: 07/22/22 Stop Date: 07/17/23 Status: Ordered erythromycin 0.5% ophthalmic ointment 0 Refill(s) Start Date: 02/24/24 Status: Ordered febuxostat 40 mg oral tablet 1 tab, Oral, Daily, # 90 tab, 3 Refill(s), [facility]acy: [facility], 180.34, cm, 07/23/23 9:23:00 EDT, Height, [...] wean., # 137 tab, 0 Refill(s), [facility]: [facility], 179, cm, 12/23/23 10:23:00 EDT, Height, 115.55, kg, 02/24/24 9:15:00 EDT,Weight Dosing Start Date: 02/24/24 Stop Date: 03/23/24 Status: Ordered HYDROcodone-acetaminophen 10 mg-325 mg oral tablet 1 tab, Oral, every 4 hr, PRN as needed for pain, Take 1 tablet every 4-6 hours as needed for severepain. Minimize use to prepare for weaning, # 137 tab, 0 Refill(s), [facility]acy: [facility], 179, cm, 12/23/23 10:23:00 EDT, Height, 115.55, kg, 02/24/24 9:15:00 EDT, Weight Dosing Start Date: 02/24/24 Stop Date: 03/23/24 Status: Ordered HYDROcodone-acetaminophen 10 mg-325 mg oral tablet 1 tab, Oral, every 4 hr, PRN as needed for pain, Take 1 tablet every 4-6 hours as needed for severepain. Minimize use to prepare for weaning, # 137 tab, 0 Refill(s), [facility]acy: [facility], 179, cm, 12/23/23 10:23:00 EDT, Height, 115.55, kg, 02/24/24 9:15:00 EDT, Weight Dosing Start Date: 02/24/24 Stop Date: 03/23/24 Status: Ordered HYDROcodone-acetaminophen 10 mg-325 mg oral tablet 1 tab, Oral, every 4 hr, Take 1 tablet every 4-6 hours as needed for severe pain. Minimize use to prepare for weaning, # 152 tab, 0 Refill(s), [facility]acy: [facility], 179.07, cm, 11/18/23 11:12:00 EST, Height, 119.65, kg, 12/01/23 9:53:00 EST, Weight Dosing Start Date: 12/01/23 Stop Date: 12/29/23 Status: Ordered ketoconazole 2% topical cream 1 ignacio, Topical, BID, to affected area. Anti-fungal for yeast infection., # 60 g, 0 Refill(s), [facility]acy: [facility] Start Date: 08/22/22 Stop Date: 09/19/22 Status: Ordered losartan 50 mg oral tablet 50 mg = 1 tab, Oral, Daily, # 90 tab, 3 Refill(s), [facility]acy: [facility], 179.07, cm, 12/07/23 9:04:00 EST, Height, 117.75, kg, 12/07/23 9:12:00 EST, Weight Dosing Start Date: 12/11/23 Status: Ordered Metoprolol Succinate ER 50 mg oral tablet, extended release 50 mg = 1 tab, Oral, Daily, # 90 tab, 3 Refill(s), Pharmacy: [facility], 180.34, cm, 07/23/23 9:23:00 EDT, Height, 117.93, kg, 09/08/23 10:25:00 EST, Weight Dosing Start Date: 09/14/23 Stop Date: 09/08/24 Status: Ordered Narcan 4 mg/0.1 mL nasal spray 1 sprays, Nasal, Once, PRN other (see comment), may repeat every 2 to 3 minutes until patient responds, # 2 EA, 0 Refill(s), [facility]acy: [facility] Start Date: 09/25/22 Status: Ordered sildenafil 100 mg oral tablet 1 tab, Oral, Daily, # 10 tab, 1 Refill(s), [facility]acy: [facility], 179, cm, 12/23/23 10:23:00 EDT, Height, 115.67, kg, 12/23/23 10:25:00 EDT, Weight Dosing Start Date: 12/29/23 Stop Date: 02/27/24 Status: Ordered traZODone 50 mg oral tablet 1 tab, Oral, every night at bedtime, # 90 tab, 3 Refill(s), [facility]acy: [facility] Start Date: 03/19/23 Stop Date: 03/13/24 Status: Ordered triamcinolone 0.025% topical cream 1 ignacio, Topical, BID, PRN itching/rash, apply a thin film to affected area Steroid cream for itchingand redness., # 60 g, 0 Refill(s), [facility]acy: [facility] Start Date: 08/22/22 Stop Date: 09/05/22 Status: Ordered zolpidem 10 mg oral tablet 10 mg = 1 tab, Oral, every night at bedtime, swallow whole do not crush or chew, # 28 tab, 2 Refill(s), [facility]acy: [facility], 179, cm, 12/23/23 10:23:00 EDT, Height, [...] obacco Use:. Sex Male Progress note * Jonas Bailey M: PERFORM Event Display: Progress Note - Physician Authored Date: [id number] Physician Outpatient Note * Arely Hanley INSTRUCTIONAL TECHNOLOGY INSTRUCTOR: PERFORM Event Display: Office Clinic Note Physician Authored Date: [id number] BRENDA ESTEBAN :1960 Age:64 years Sex:Male Visit Date:02/25/2024 Primary Care Physician: Astrid Mcdonough MD Chief Complaint cpap compliance History of Present Illness 64 year old??male??here for compliance. ?? TODAY: Patient shares a few weeks ago he was working on the blinds in his home and got dizzy, lost his balance and fell. He injured his arms but did not break anything. It made it hard to put his CPAP on for a few weeks while they healed. A few days ago, he was very dizzy and lightheaded from afib, so was seen in the ED. He was also prescribed some antibiotic eye ointments. He has been having dry eyes which also made it difficult to tolerate his CPAP because of the air. He is going to [facility] for a cardiology visit on 03/09. He states they are going to reset his heart, will be staying for 3 days and 3 nights.? Review of Systems A 10-point REVIEW OF SYSTEM was obtained and reviewed, includes CONSTITUTIONAL, EYES, NOSE, THROAT,RESPIRATORY, HEART, GASTROINTESTINAL, UROLOGIC, MUSCULOSKELETAL, PSYCHIATRY, SKIN systems. Pertinent symptoms are discussed in history, otherwise negative. Physical Exam General:??well appearing, appearing stated age, no acute distress,??obese??build HEENT: atraumatic skull, anicteric RESPIRATORY: quiet respiration, able to speak in full sentences without dyspnea, no accessory muscle use SKIN: no facial skin rash, no facial skin lesions PSYCHIATRIC: well groomed, fluent speech, good insight, linear thought process, good eye contact,balanced??affect NEUROLOGIC: alert, oriented, symmetric facial expression Clinic Assessment/Plan 1.??Obstructive sleep apnea??G47.33 ??Brenda Esteban is a pleasant 64 year old male here for CPAP follow up. He has decreased compliance over the last month which is due to a few different issues that he is having currently. He is struggling with dry eyes which is making is hard to tolerate wearing his mask; he does not recall having dry eye issues before using CPAP. We discussed trying a different type of mask, as he is currently using a full face mask; he thinks he has tried a nasal mask before and did not like it. He breathes through his mouth and I advised he can try a nasal option again with chin strap or find a different type of FFM or hybrid mask. He would like to stick with his current mask and see how things go, doesn'twant to make any changes today. ?? I reviewed his chart and pt was recently seen in ED for symptomatic Afib, with dizziness and lightheadedness. While he was there, he was also rx'ed erythomycin optho treatment for his eyes which he is using. Hopefully this will result in some improvement in his eye discomfort.?? Pt shares that he is scheduled to go to [facility] on 04/09 for afib cardioversion, plans to be a 3 day stay.? Download data reviewed and discussed with the patient. He has low compliance as I stated, but when he is using his CPAP he has very good treatment of his TYRON. Auto CPAP 6 to 12cm H20, tx AHI 2.0/hr. Will continue current pressures. ?? PCP note reviewed as well. Pt saw her yesterday. He endorses still taking Trazodone and Ambien at night for insomnia. He is also being weaned down on his hydrocodone, is taking 1-4 tabs per day now. He is not sure what the group home plan is for his pain management.? Encouraged patient to increase his compliance. He is having some trouble sleeping lately because ofall the medical things he has going on, but plans to use his CPAP when he sleeps.? Plan for follow up in 6 months.? I provided greater than??40??minutes in the care of this patient, more than half the time was spentin [id number] counseling. ?with comorbidities of??Afib, chronic back pain, HTN, rheumatoid arthritis, chronic insomnia (ambien 10mg, trazodone 50mg), obesity, hx of Lyme disease, HLD, chronic pain on Hydrocodone, asthma ? Clinical Data Reviewed: [place] Sleepiness Scale: [place] Sleepiness Scale:??11/04 (12/23/23) ?? Machine Download Data:??Resmed AirSense 10 Auto CPAP?? PAP Settings: ??Auto CPAP?? 6 to 12 CmH2O Date Range:?01/23/24 - 02/21/24 Days with Usage >=4 hours: 27%? Avg Usage per Day Used:?? 3hr 39min Mean/Median Pressure:?7.8 90th-tile/95th-tile Pressure: 10.5? Median-90th%tile Leak?? 0.6/13.5 Avg Treatment ??AHI:?? 2.0/hr ?? Sleep Clinical Timeline:? 11/03/2011: Diagnostic PSG. C/o [...] air, restless sleep, changes to mood, ESS 05/04, [place] Questionnaire 3 out of 3. Patient is [...] now being followed by Anat LEDESMA at [facility]. ?? 11/18/2023:??NEW CPAP user f2f visit. Adjusted pressures in office to auto CPAP 6 to 12cm H20, doing??very well acclimating to CPAP. Machine settings reviewed in office, education done. ? 12/23/2023:??Patient continues to tolerate CPAP pressure change continue auto CPAP 6 to 12 cm H2O, excellent compliance and reduction in AHI 3.1/h. ??He is encouraged to replace his mask cushion as it is more than a month old??and he is noting??increased mask leakage. ??Given that he had significant nocturnal hypoxemia on his initial PSG recommended titration PSG to ensure??adequate treatment forboth his TYRON and nocturnal hypoxemia. ??He is leaving for [place] and will be away for 3 weeks??plans to hopefully have his titration study scheduled sometime after that. ??He continues to take??hydrocodone qAM, Ambien 10mg and Trazodone 50mg at bedtime.?? History of A-fib, following at [facility] and [facility]. ??Had a recent appointment at [facility] to determine whether or not he is a candidate for cardioversion??versus medication. ?? 02/25/2024: Pt has decreased compliance and is encouraged to use his CPAP regularly again. Pt vitaly for cardioversion at [facility] at on 04/09 for his afib, recently has been symptomatic and went to the ED this month for afib. pt struggling with dry eyes with cpap but does not wish to change his mask, has rx eye ointment abx from ED.? Current Mask: Airtouch F20 Medium DME: [facility] ? Today's Assessment and Plan: See above ?? Follow up: 6 months or sooner if needed. ?? Remote Scribed by Seble Elaine Problem List/Past Medical History Ongoing Adenomatous polyp of colon Arthritis Atrial fibrillation Benign neoplasm of cerebral meninges Bilateral shoulder joint pain Carpal tunnel syndrome Chronic gouty arthritis Chronic pain Claustrophobia Degeneration of cervical intervertebral disc Depression Diverticulosis of colon Dupuytren's contracture Herniation of lumbar intervertebral disc with sciatica Hyperglycemia Hyperlipidemia Hypertensive disorder Insomnia Insulin resistance Lyme disease Medication management Microscopic hematuria Moderate persistent asthma Muscle pain Myalgia/myositis - multiple Nocturnal enuresis Nocturnal hypoxemia Obstructive sleep apnea Obstructive sleep apnea syndrome Pain of left hip joint Psychophysiologic insomnia Psychophysiologic insomnia Psychophysiological insomnia Sciatica Tinea corporis Transient cerebral ischemia Urinary leakage Vitamin D deficiency Historical Screening for malignant neoplasm of prostate Procedure/Surgical History ???Injection (11/08/2020)???Total replacement of left hip joint (04/12/2020)???Hemilaminectomy (10/28/2019)???Lumbar microdiscectomy (10/28/2019)???Colonoscopy (03/09/2019)???Colonoscopy (10/12/2015)???Closed reduction and percutaneous pinning-left proximal phalanx fracture (02/08/2013)???Carpal tunnel release (10/12/2011)???C5-C6 and C6-C7 diskectomy and fusion (12/25/2008)???Carpal tunnel release (10/12/2008)???ORIF - Open reduction and internal fixation of fracture Medications What How Much When Why Instructions Unchanged apixaban (Eliquis 5 mg oral tablet) [...] Duration: 90 Days as directed ?? Unchanged erythromycin ophthalmic (erythromycin 0.5% ophthalmic ointment) Unchanged febuxostat (febuxostat 40 mg oral tablet) [...] responds ?? Unchanged Other Prescription (AAA - Misc Prescription) 90 EA, TAKE ONE TABLET BY [...] (Tdap) adult/adol 06/21/2012 Recorded Electronically Signed on 02/25/24 11:58 AM Arely Hanley INSTRUCTIONAL TECHNOLOGY INSTRUCTOR Electronically Signed on 02/25/24 11:34 AM Seble Elaine Patient Care team information Care Team Personnel Name: Astrid Mcdonough MD Position: Physician Member Role: Informed Provider Address: Address: [address] [place] [address] [place] [address] Care Team Related Persons Name: VADIM COSTA
--- OUTSIDE RECORDS SUMMARY | 2024-08-29 14:10 | XMS_ITS | Continuity of Care Document ---
Author Organization [facility] Address [address] [place] [address] Care Team Providers Care Emergency Manager Name Role Phone Astrid Mcdonough Primary Care Physician Encounter [facility] Date(s): 08/17/23 - 08/17/[address] [address] Discharge Disposition: Home or Self Care Attending Physician: Anat Cross NP Admitting Physician: Anat Cross NP Referring Physician: Anat Cross GAGGERMAN Allergies, Adverse Reactions, Alerts No Known Medication [...] Daily, # 90 tab, 2 Refill(s), Pharmacy: [facility] Start Date: 06/16/23 Status: Ordered Combivent Respimat CFC free 20 mcg-100 mcg/inh inhalation aerosol 1 puffs, Inhale, As Directed, # 4 g, 0 Refill(s) Start Date: 03/19/23 Status: Ordered DULoxetine 30 mg oral delayed release capsule 30 mg = 1 cap, Oral, BID, # 180 cap, 3 Refill(s), Pharmacy: [facility] Start Date: 07/11/23 Stop Date: 07/05/24 Status: Ordered Eliquis 5 mg oral tablet 5 mg = 1 tab, Oral, BID, # 180 tab, 3 Refill(s), Pharmacy: [facility] Start Date: 07/30/23 Stop Date: 07/24/24 Status: Ordered ergocalciferol 1.25 mg (50,000 intl units) oral capsule 50,000 IntlUnit = 1 cap, Oral, every 2 wk, as directed, # 7 cap, 3 Refill(s), Pharmacy: [facility] Start Date: 07/22/22 Stop Date: 07/17/23 Status: Ordered febuxostat 40 mg oral tablet 1 tab, Oral, Daily, # 90 tab, 3 Refill(s), Pharmacy: [facility] Start Date: 07/11/23 Stop Date: 07/05/24 [...] wean., # 168 tab, 0 Refill(s), Pharmacy: [facility] Start Date: 08/24/23 Stop Date: 09/21/23 Status: Ordered HYDROcodone-acetaminophen 10 mg-325 mg oral tablet 1 tab, Oral, every 4 hr, PRN as needed for pain, Take 1 tablet every 4-6 hours as needed for severepain. Recommendations to decrease to 5 tablets daily for upcoming wean., # 168 tab, 0 Refill(s), Pharmacy: [facility] Start Date: 07/27/23 Stop Date: 08/24/23 Status: Ordered hydrOXYzine hydrochloride 50 mg oral tablet 30 EA, TAKE ONE TABLET BY MOUTH EVERY DAY WITH EVENING MEAL, 0 Refill(s) Start Date: 03/19/23 Status: Ordered ketoconazole 2% topical cream 1 ignacio, Topical, BID, to affected area. Anti-fungal for yeast infection., # 60 g, 0 Refill(s), Pharmacy: [facility] Start Date: 08/22/22 Stop Date: 09/19/22 Status: Ordered losartan 50 mg oral tablet 50 mg = 1 tab, Oral, Daily, # 90 tab, 2 Refill(s), Pharmacy: [facility] Start Date: 03/19/23 Status: Ordered metoprolol succinate 25 mg oral capsule, extended release 25 mg = 1 cap, Oral, Daily, Take 25mg and 50mg for total fof 75 mg daily, # 90 cap, 0 Refill(s), Pharmacy: [facility] Start Date: 07/11/23 Status: Ordered Metoprolol Succinate ER 50 mg oral tablet, extended release 50 mg = 1 tab, Oral, Daily, # 90 tab, 3 Refill(s), Pharmacy: [facility] Start Date: 07/22/22 Stop Date: 07/17/23 Status: Ordered Narcan 4 mg/0.1 mL nasal spray 1 sprays, Nasal, Once, PRN other (see comment), may repeat every 2 to 3 minutes until patient responds, # 2 EA, 0 Refill(s), Pharmacy: [facility] Start Date: 09/25/22 Status: Ordered sildenafil 100 mg oral tablet 1 tab, Oral, Daily, # 10 tab, 11 Refill(s), Pharmacy: [facility] Start Date: 07/22/22 Stop Date: 07/17/23 Status: Ordered traZODone 50 mg oral tablet 1 tab, Oral, every night at bedtime, # 90 tab, 3 Refill(s), Pharmacy: [facility] Start Date: 03/19/23 Stop Date: 03/13/24 Status: Ordered triamcinolone 0.025% topical cream 1 ignacio, Topical, BID, PRN itching/rash, apply a thin film to affected area Steroid cream for itchingand redness., # 60 g, 0 Refill(s), Pharmacy: [facility] Start Date: 08/22/22 Stop Date: 09/05/22 Status: Ordered triamcinolone 0.5% topical ointment 1 ignacio, Topical, BID, # 430 g, 0 Refill(s), Pharmacy: [facility] Start Date: 12/25/22 Stop Date: 01/08/23 Status: Ordered zolpidem 10 mg oral tablet 10 mg = 1 tab, Oral, every night at bedtime, swallow whole do not crush or chew, # 28 tab, 1 Refill(s), Pharmacy: [facility] Start Date: 07/29/23 Stop Date: 09/23/23 Status: Ordered Problem List Condition Confirmation Course [...] tobacco user T obacco Use:. Sex Male Exercise stress test study * Ramu Donnelly T: PERFORM Larry Reid MD: MODIFY Event Display: Stress ECG Authored Date: [id number] BRENDA JAVED :1960 Age:63 years Sex:Male Visit Date:08/17/2023 Primary Care Physician: Astrid Mcdonough MD Ordering Provider : ??Anat Cross GAGGERMAN? ETT?Mick Protocol Indication:??Atrial Fib MPHR:??159 85% MPHR:??135 ?Stage ??Speed ??Incline ??Heart rate ??Blood Pressure ??Comments ??1 ??2.7 km/hr ??10% ?166 170??/90 ?spo2 98 ??2 ??4.02 km/hr ??12% ?179 ??/ ?3 ??5.47 km/hr ??14% ?/ ?4 ??6.76 km/hr ??16% ?/ ?5 ??8.05 km/hr ??18% ?/ ?6 ??8.85 km/hr ??20% ?/ ?7 ??9.65 km/hr ??22% ?/ ?8 ??10.46 km/hr ??24% ?/ ?Recovery ?/ ?2:00 ?/ ?4:00 ?/ ? Total Time:??3:56 Max Heart Rate:??196 % of MPHR achieved:??123 Functional Capacity: ??Fair METS 6.80?? Peak BP:??212/115 Chest Pain: ??None? Reason Test Terminated:??Target HR achieved, Pt. wants to stop ST Changes: ??2??mm Direction, leads:?? Arrhythmias:??A-Fib Heart rate and BP Response: HTN?? Patel Treadmill Score: ??-7 ?MODERATE RISK, with predicted 5-year survival >90%.? Summary Impression:??Indeterminate stress test; deconditioned, with borderline 1-2mm ST depression in anterior leads. Consider alternate stress modality (such as lexiscan nuclear stress)?? Electronically Signed on 08/17/23 11:13 AM Ramu oDnnelly Electronically Signed on 08/17/23 11:19 AM Larry Reid MD Reviewed by: Ramu Donnelly Steven D MD Patient Care team information Care Team Personnel Name: Astrid Mcdonough MD Position: No Access Member Role: Primary Care Physician Address: Address: [address] [place] [id number] [place] Care Team Related Persons Name: VADIM COSTA
--- OUTSIDE RECORDS SUMMARY | 2024-08-29 14:10 | XMS_ITS | Continuity of Care Document ---
Author Organization [facility] Address [address] [place] [address] Care Team Providers Care Refinery Operator Crude Unit Name Role Phone Astrid Mcdonough Primary Care Physician Encounter [facility] Date(s): 09/17/23 - 09/17/23 [facility] [address] [place] [address] Discharge Disposition: Home Allergies, Adverse Reactions, Alerts [...] Daily, # 90 tab, 2 Refill(s), Pharmacy: [facility] Start Date: 06/16/23 Status: Ordered Combivent Respimat CFC free 20 mcg-100 mcg/inh inhalation aerosol 1 puffs, Inhale, As Directed, # 4 g, 0 Refill(s) Start Date: 03/19/23 Status: Ordered DULoxetine 30 mg oral delayed release capsule 30 mg = 1 cap, Oral, BID, # 180 cap, 3 Refill(s), Pharmacy: [facility] Start Date: 07/11/23 Stop Date: 07/05/24 Status: Ordered Eliquis 5 mg oral tablet 5 mg = 1 tab, Oral, BID, # 180 tab, 3 Refill(s), Pharmacy: [facility] Start Date: 07/30/23 Stop Date: 07/24/24 Status: Ordered ergocalciferol 1.25 mg (50,000 intl units) oral capsule 50,000 IntlUnit = 1 cap, Oral, every 2 wk, as directed, # 7 cap, 3 Refill(s), Pharmacy: [facility] Start Date: 07/22/22 Stop Date: 07/17/23 Status: Ordered febuxostat 40 mg oral tablet 1 tab, Oral, Daily, # 90 tab, 3 Refill(s), Pharmacy: [facility], 180.34, cm, 07/23/23 9:23:00 EDT, Height, [...] wean., # 168 tab, 0 Refill(s), Pharmacy: [facility] Start Date: 07/27/23 Stop Date: 08/24/23 Status: Ordered HYDROcodone-acetaminophen 10 mg-325 mg oral tablet 1 tab, Oral, every 4 hr, PRN as needed for pain, Take 1 tablet every 4-6 hours as needed for severepain. Recommendations to decrease to 5 tablets daily for upcoming wean., # 168 tab, 0 Refill(s), Pharmacy: [facility], 180.34, cm, 07/23/23 9:23:00 EDT, Height, [...] infection., # 60 g, 0 Refill(s), Pharmacy: [facility] Start Date: 08/22/22 Stop Date: 09/19/22 Status: Ordered losartan 50 mg oral tablet 50 mg = 1 tab, Oral, Daily, # 90 tab, 2 Refill(s), Pharmacy: [facility] Start Date: 03/19/23 Status: Ordered Metoprolol Succinate ER 50 mg oral tablet, extended release 50 mg = 1 tab, Oral, Daily, # 90 tab, 3 Refill(s), Pharmacy: [facility], 180.34, cm, 07/23/23 9:23:00 EDT, Height, 117.93, kg, 09/08/23 10:25:00 EST, Weight Dosing Start Date: 09/14/23 Stop Date: 09/08/24 Status: Ordered Narcan 4 mg/0.1 mL nasal spray 1 sprays, Nasal, Once, PRN other (see comment), may repeat every 2 to 3 minutes until patient responds, # 2 EA, 0 Refill(s), Pharmacy: [facility] Start Date: 09/25/22 Status: Ordered sildenafil 100 mg oral tablet 1 tab, Oral, Daily, # 10 tab, 3 Refill(s), Pharmacy: [facility], 180.34, cm, 07/23/23 9:23:00 EDT, Height Start Date: 08/26/23 Stop Date: 12/24/23 Status: Ordered traZODone 50 mg oral tablet 1 tab, Oral, every night at bedtime, # 90 tab, 3 Refill(s), Pharmacy: [facility] Start Date: 03/19/23 Stop Date: 03/13/24 Status: Ordered triamcinolone 0.025% topical cream 1 ignacio, Topical, BID, PRN itching/rash, apply a thin film to affected area Steroid cream for itchingand redness., # 60 g, 0 Refill(s), Pharmacy: [facility] Start Date: 08/22/22 Stop Date: 09/05/22 Status: Ordered zolpidem 10 mg oral tablet 10 mg = 1 tab, Oral, every night at bedtime, swallow whole do not crush or chew, # 28 tab, 6 Refill(s), Pharmacy: [facility], 180.34, cm, 07/23/23 9:23:00 EDT, Height, [...] Physician Member Role: Informed Provider Address: Address: [address] [place] [address] [place] [address] [place] Care Team Related Persons Name: VADIM COSTA Address: Home
--- OUTSIDE RECORDS SUMMARY | 2024-08-29 14:10 | XMS_ITS | Continuity of Care Document ---
Author Organization [facility] Address [address] [place] [address] Care Team Providers Care Crown Blocker Name Role Phone Ceasar Astrid Primary Care Physician Encounter [place] Date(s): 01/26/24 - 01/26/[address] [address] Encounter Diagnosis Multiple contusions(Discharge Diagnosis) - 01/26/24 Discharge Disposition: Home or Self Care Attending Physician: Katie Fernandes MD Allergies, Adverse Reactions, Alerts No Known Medication Allergies Substance Reaction Severity Status allopurinol Skin rash Unknown Active ketoconazole 1 Skin rash Unknown Active 1patient states the rash was from allopurinol not this, and he has used it without issue.%0ALast modified by Alysia Alcaraz 12-24-2020, 08:31 Assessment and Plan Extracted from: Title:ED Provider Note Author:Debbie Heath Ma, MD Date:01/26/24 Assessment/Plan 1.??Multiple contusions??T07.XXXA Ordered: Discharge Patient, 01/26/24 12:06:00 EDT, Constant Indicator ?? Follow Up With When Contact Information Primary Care Physician Within 1 to 2 weeks, only if needed Additional Instructions: Future Appointments Immunizations Given and Recorded Vaccine [...] by CHANORN. 2Result Comment: Patient Declined Medications [facility] [place], TAKE ONE TABLET BY MOUTH EVERY DAY, 0 Refill(s) Start Date: 03/19/23 Status: Ordered atorvastatin 40 mg oral tablet 40 mg = 1 tab, Oral, Daily, # 90 tab, 3 Refill(s), Pharmacy: [facility], 179.07, cm, 12/07/23 9:04:00 EST, Height, 117.75, kg, 12/07/23 9:12:00 EST, Weight Dosing Start Date: 12/07/23 Status: Ordered Combivent Respimat CFC free 20 mcg-100 mcg/inh inhalation aerosol 1 puffs, Inhale, As Directed, # 4 g, 0 Refill(s) Start Date: 03/19/23 Status: Ordered DULoxetine 30 mg oral delayed release capsule 30 mg = 1 cap, Oral, BID, # 180 cap, 3 Refill(s), Pharmacy: [facility] Start Date: 07/11/23 Stop Date: 07/05/24 Status: Ordered Eliquis 5 mg oral tablet 5 mg = 1 tab, Oral, BID, # 180 tab, 3 Refill(s), Pharmacy: [facility], 180.34, cm, 07/23/23 9:23:00 EDT, Height, 117.93, kg, 09/08/23 10:25:00 EST, Weight Dosing Start Date: 10/22/23 Stop Date: 10/16/24 Status: Ordered ergocalciferol 1.25 mg (50,000 intl units) oral capsule 50,000 IntlUnit = 1 cap, Oral, every 2 wk, as directed, # 7 cap, 3 Refill(s), Pharmacy: [facility] Start Date: 07/22/22 Stop Date: 07/17/23 Status: Ordered febuxostat 40 mg oral tablet 1 tab, Oral, Daily, # 90 tab, 3 Refill(s), Pharmacy: [facility], 180.34, cm, 07/23/23 9:23:00 EDT, Height, [...] wean., # 168 tab, 0 Refill(s), Pharmacy: [facility], 180.34, cm, 07/23/23 9:23:00 EDT, Height, 117.93, kg, 09/08/23 10:25:00 EST, Weight Dosing Start Date: 10/22/23 Stop Date: 11/19/23 Status: Ordered HYDROcodone-acetaminophen 10 mg-325 mg oral tablet 1 tab, Oral, every 4 hr, PRN as needed for pain, Take 1 tablet every 4-6 hours as needed for severepain. Minimize use to prepare for weaning, # 152 tab, 0 Refill(s), Pharmacy: [facility], 179.07, cm, 11/18/23 11:12:00 EST, Height, 119.65, kg, 12/01/23 9:53:00 EST, Weight Dosing Start Date: 12/01/23 Stop Date: 12/29/23 Status: Ordered HYDROcodone-acetaminophen 10 mg-325 mg oral tablet 1 tab, Oral, every 4 hr, PRN as needed for pain, Take 1 tablet every 4-6 hours as needed for severepain. Minimize use to prepare for weaning, # 152 tab, 0 Refill(s), Pharmacy: [facility], 179.07, cm, 11/18/23 11:12:00 EST, Height, 119.65, kg, 12/01/23 9:53:00 EST, Weight Dosing Start Date: 12/01/23 Stop Date: 12/29/23 Status: Ordered HYDROcodone-acetaminophen 10 mg-325 mg oral tablet 1 tab, Oral, every 4 hr, Take 1 tablet every 4-6 hours as needed for severe pain. Minimize use to prepare for weaning, # 152 tab, 0 Refill(s), Pharmacy: [facility], 179.07, cm, 11/18/23 11:12:00 EST, Height, 119.65, kg, 12/01/23 9:53:00 EST, Weight Dosing Start Date: 12/01/23 Stop Date: 12/29/23 Status: Ordered ketoconazole 2% topical cream 1 ignacio, Topical, BID, to affected area. Anti-fungal for yeast infection., # 60 g, 0 Refill(s), Pharmacy: [facility] Start Date: 08/22/22 Stop Date: 09/19/22 Status: Ordered losartan 50 mg oral tablet 50 mg = 1 tab, Oral, Daily, # 90 tab, 3 Refill(s), Pharmacy: [facility], 179.07, cm, 12/07/23 9:04:00 EST, Height, 117.75, kg, 12/07/23 9:12:00 EST, Weight Dosing Start Date: 12/11/23 Status: Ordered Metoprolol Succinate ER 50 mg oral tablet, extended release 50 mg = 1 tab, Oral, Daily, # 90 tab, 3 Refill(s), Pharmacy: [facility], 180.34, cm, 07/23/23 9:23:00 EDT, Height, 117.93, kg, 09/08/23 10:25:00 EST, Weight Dosing Start Date: 09/14/23 Stop Date: 09/08/24 Status: Ordered Narcan 4 mg/0.1 mL nasal spray 1 sprays, Nasal, Once, PRN other (see comment), may repeat every 2 to 3 minutes until patient responds, # 2 EA, 0 Refill(s), Pharmacy: [facility] Start Date: 09/25/22 Status: Ordered sildenafil 100 mg oral tablet 1 tab, Oral, Daily, # 10 tab, 1 Refill(s), Pharmacy: [facility], 179, cm, 12/23/23 10:23:00 EDT, Height, 115.67, kg, 12/23/23 10:25:00 EDT, Weight Dosing Start Date: 12/29/23 Stop Date: 02/27/24 Status: Ordered traZODone 50 mg oral tablet 1 tab, Oral, every night at bedtime, # 90 tab, 3 Refill(s), Pharmacy: [facility] Start Date: 03/19/23 Stop Date: 03/13/24 Status: Ordered triamcinolone 0.025% topical cream 1 ignacio, Topical, BID, PRN itching/rash, apply a thin film to affected area Steroid cream for itchingand redness., # 60 g, 0 Refill(s), Pharmacy: [facility] Start Date: 08/22/22 Stop Date: 09/05/22 Status: Ordered zolpidem 10 mg oral tablet 10 mg = 1 tab, Oral, every night at bedtime, swallow whole do not crush or chew, # 28 tab, 2 Refill(s), Pharmacy: [facility], 179.07, cm, 11/18/23 11:12:00 EST, Height, [...] Most recent to oldest [Reference Range]: 1 Temperature Temporal Artery [36-38 Deg C ] 36.3 Deg C (01/26/24 10:47 AM) Peripheral Pulse Rate [60-100 bpm] 89 bp m (01/26/24 10:47 AM) Respiratory Rate [12-24 br/min] 20 br/mi n (01/26/24 10:47 AM) Blood Pressure [90-140/60-90 mmHg] 137/1 02mmHg (01/26/24 10:47 AM) Mean Arterial Pressure, Cuff [65-140 mmH g] 114 mmHg (01/26/24 10:47 AM) Weight Estimated 115.67 kg (01/26/24 10:47 AM) Body Mass Index Estimated 35.7 kg/m2 (01/26/24 10:47 AM) Height/Length Estimated 180 cm (01/26/24 10:47 AM) Social History Social History Type Response Tobacco Never tobacco user T obacco Use:. Sex Male Hospital Discharge Instructions Follow Up Care 01/26/2024 10:43:45 With:Primary Care Physician Address: When:1 to 2 weeks only if needed Physician Emergency department Note * Debbie Heath MD: PERFORM Event Display: ED Note Physician Authored Date: [id number] BRENDA JAVED :1960 Age:64 years Sex:Male Visit Date:01/26/2024 Primary Care Physician: Astrid Mcdonough MD Basic Information Time Seen: Debbie Heath MD / 01/26/2024 11:01 Chief Complaint Pt fell onto right side from chair height, c/o right elbow, shoulder, and knee pain. 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 History Of Present Illness: 64-year-old male??with multiple medical problems including??chart listed history of atrial fibrillation,??chronic gouty arthritis, chronic pain,??hypertension, hyperlipidemia, insulin resistance, Lyme disease,??myalgia,??TYRON,??sciatica,??who presents to the emergency department complaining of??right upper extremity and??right knee pain after a fall.?? The patient says that his blinds fell down yesterday??so he climbed on a chair in order to??fix them.?? He lost his balance and fell down on his right side.?? He is now complaining of??right shoulder, right??humerus??and right elbow pain as wellas right knee pain.?? The patient says he did not hit his head and he had no LOC.?? He has no neck pain.?? No nausea or vomiting??or abdominal pain. Pt says he has a h/o of surgery on his Rt elbow for removal of a skin growth and he has chronic swelling in that area now. He also has a Rt 5th finger trigger finger, says he had the 4th one straightened out recently, waiting on having the 5ht one done. No new injury there. Patient is on Eliquis Physical Exam Vitals & Measurements T:??36.3?C ??(Temporal Artery)?? HR:??89??(Peripheral)?? RR:??20?? BP:??137/102?? SpO2:??96%?? HT:??180??cm?? WT:??115.67??kg??(Estimated)?? BMI:??35.7?? Pain Score:??9?? O2 Therapy:??Room air?? GEN: well developed and well nourished HEAD: NCAT EYES: pupils round reactive to light, conjunctiva clear, extraocular movements intact, no raccoons eyes ENT: no fluid in external acoustic canals, no hemotympanum, no amos's sign, nares patent, oropharynx clear NECK: no JVD, midline trachea, no cervical spine tenderness,?? HEART: regular rate and rhythm LUNGS: CTAB CHEST: chest wall non-tender, no bruising/deformity ABD: no Castellanos-Roldna's or Hiram's sign, soft, non tender, no rebound or guarding PELVIS: stable to rock BACK: no step offs or deformities, T-L spine non tender : deferred EXT: Right upper extremity with tenderness to palpation over the proximal humerus, there is full range of motion at the shoulder??passively,??there is??mild swelling over the posterior elbow with??slight tenderness to palpation and full range of motion, no bruising. ??Right knee with no bruising or swelling,??mild tenderness to palpation throughout, full range of motion actively. Rt fifth finger trigger finger noted.?5/5 muscle strength globally, sensation intact. NEURO: CNII-XII grossly intact, no sensory deficits Medical Decision Makin-year-old male??with multiple medical problems including??chart listed history of atrial fibrillation,??chronic gouty arthritis, chronic pain,??hypertension, hyperlipidemia, insulin resistance, Lyme disease,??myalgia,??TYRON,??sciatica,??who presents to the emergency department complaining of??right upper extremity and??right knee pain after a fall.? Thorough chart review performed Nursing triage note reviewed Triage vitals reviewed Pt well and non toxic appearing?? Presentation concerning for contusion/sprain, will r/o frx ?? Plan: Analgesia -patient declined, he already took Vicodin at home, XR ? 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 Discussed with patient, recommended follow-up with primary care in 1 to 2 weeks as needed, return??precautions discussed, all questions answered. Procedure No Qualifying Data Assessment/Plan 1.??Multiple contusions??T07.XXXA Ordered: Discharge Patient, 01/26/24 12:06:00 EDT, Constant Indicator ?? Follow Up With When Contact Information Primary Care Physician Within 1 to 2 weeks, only if needed Additional Instructions: Medication Reconciliation Unchanged apixaban (Eliquis 5 mg oral tablet)1 [...] patient responds. Refills: 0. ?? Other Prescription ([facility] [place]90 EA, TAKE ONE TABLET BY MOUTH [...] user Tobacco Use:. Family History Other: Father. Electronically Signed on 01/26/24 12:20 PM Debbie Heath MD Emergency department Discharge instructions * Debbie Heath MD: PERFORM Event Display: ED Discharge Information Authored Date: [id number] BRENDA JAVED :1960 Age:64 years Sex:Male Visit Date:01/26/2024 Primary Care Physician: Astrid Mcdonough MD Discharge Instructions We would like to thank you for allowing us to assist you with your healthcare needs. The following includes patient education materials and information regarding your injury/illness. Diagnosis from Today's Visit Multiple contusions Discharge Vitals Temperature??(Temporal Artery) 97.3 ??F (36.3 ??C) Heart Rate??(Peripheral) 89 Respiratory Rate?? 20 Blood Pressure?? 137/102?? SpO2?? 96% Height?? 70.87 in (180 cm) Weight??(Estimated) 255.05 lb (115.67 kg) BMI?? 35.7 Allergies No Known Medication Allergies allopurinol??(Skin rash) ketoconazole??(Skin rash) What to Do Next Instructions from Your Care Team It was a pleasure to take care of you today. Today you had mutliple Xrays showing no break in your bones. There is arthritis noted in your right knee, and the swelling of your elbow was seen on Xray too. You are already taking Vicodin for chronic pain, please continue as prescribed. Follow up with your primary care doctor for reevaluation in the next 1-2 weeks as needed. Return to the ED for any new or worsening symptoms.?? You Need to Schedule the Following Appointments Follow Up with??Primary Care Physician When:??Within 1 to 2 weeks, only if needed Upcoming Scheduled Appointments Thursday. 2023 9:00 AM EDT ?? With: Benji Nguyễn PROFESSOR OF KINESIOLOGY Where: [facility] [address] [address] Status: Confirmed 2023 11:00 AM EDT ?? With: Savannah JOSEArely PROFESSOR OF KINESIOLOGY Where: [facility] [address] [place] [address] Status: Confirmed Thursday 9:20 AM EDT ?? With: Anat Cross PROFESSOR OF KINESIOLOGY Where: [facility] [address] [place] [address] Status: Confirmed You were treated today [...] How Much When Why Instructions Next Dose Unchanged apixaban (Eliquis 5 mg oral tablet) [...] until patient responds ?? Unchanged Other Prescription ([facility] - Misc Prescription) 90 EA, TAKE ONE [...] whole do not crush or chew ?? Patient/Manager Data Signature Patient Name:BRENDA JAVED I have received this information and my questions have been answered. Patient/Manager Data Name: Patient/Manager Data Signature: Relationship to Patient: Witness Name/Signature: Date: Electronically Signed on: 01/26/2024 12:06 EDTSigned by:DEBBIE Patient Care team information Care Team Personnel Name: Astrid Mcdonough MD Position: Physician Member Role: Informed Provider Address: Address: [address] [place] [address] [place] [address] Care Team Related Persons Name: VADIM COSTA
--- OUTSIDE RECORDS SUMMARY | 2024-08-29 14:10 | XMS_ITS | Continuity of Care Document ---
Author Organization [facility] Address [address] [place] [address] Care Team Providers Care Photonic Laboratory Technician Name Role Phone Astrid Mcdonough Primary Care Physician Encounter [facility] Date(s): 08/24/23 - 08/24/[address] [id number] Discharge Disposition: Home or Self Care Attending Physician: Baldomero Neal Admitting Physician: Baldomero Neal Referring Physician: Baldomero Neal Allergies, Adverse Reactions, Alerts No Known Medication [...] Daily, # 90 tab, 2 Refill(s), Pharmacy: [facility] Start Date: 06/16/23 Status: Ordered Combivent Respimat CFC free 20 mcg-100 mcg/inh inhalation aerosol 1 puffs, Inhale, As Directed, # 4 g, 0 Refill(s) Start Date: 03/19/23 Status: Ordered DULoxetine 30 mg oral delayed release capsule 30 mg = 1 cap, Oral, BID, # 180 cap, 3 Refill(s), Pharmacy: [facility] Start Date: 07/11/23 Stop Date: 07/05/24 Status: Ordered Eliquis 5 mg oral tablet 5 mg = 1 tab, Oral, BID, # 180 tab, 3 Refill(s), Pharmacy: [facility] Start Date: 07/30/23 Stop Date: 07/24/24 Status: Ordered ergocalciferol 1.25 mg (50,000 intl units) oral capsule 50,000 IntlUnit = 1 cap, Oral, every 2 wk, as directed, # 7 cap, 3 Refill(s), Pharmacy: [facility] Start Date: 07/22/22 Stop Date: 07/17/23 Status: Ordered febuxostat 40 mg oral tablet 1 tab, Oral, Daily, # 90 tab, 3 Refill(s), Pharmacy: [facility] Start Date: 07/11/23 Stop Date: 07/05/24 [...] wean., # 168 tab, 0 Refill(s), Pharmacy: [facility] Start Date: 08/24/23 Stop Date: 09/21/23 Status: Ordered HYDROcodone-acetaminophen 10 mg-325 mg oral tablet 1 tab, Oral, every 4 hr, PRN as needed for pain, Take 1 tablet every 4-6 hours as needed for severepain. Recommendations to decrease to 5 tablets daily for upcoming wean., # 168 tab, 0 Refill(s), Pharmacy: [facility] Start Date: 07/27/23 Stop Date: 08/24/23 Status: Ordered hydrOXYzine hydrochloride 50 mg oral tablet 30 EA, TAKE ONE TABLET BY MOUTH EVERY DAY WITH EVENING MEAL, 0 Refill(s) Start Date: 03/19/23 Status: Ordered ketoconazole 2% topical cream 1 ignacio, Topical, BID, to affected area. Anti-fungal for yeast infection., # 60 g, 0 Refill(s), Pharmacy: [facility] Start Date: 08/22/22 Stop Date: 09/19/22 Status: Ordered losartan 50 mg oral tablet 50 mg = 1 tab, Oral, Daily, # 90 tab, 2 Refill(s), Pharmacy: [facility] Start Date: 03/19/23 Status: Ordered metoprolol succinate 25 mg oral capsule, extended release 25 mg = 1 cap, Oral, Daily, Take 25mg and 50mg for total fof 75 mg daily, # 90 cap, 0 Refill(s), Pharmacy: [facility] Start Date: 07/11/23 Status: Ordered Metoprolol Succinate ER 50 mg oral tablet, extended release 50 mg = 1 tab, Oral, Daily, # 90 tab, 3 Refill(s), Pharmacy: [facility] Start Date: 07/22/22 Stop Date: 07/17/23 Status: Ordered Narcan 4 mg/0.1 mL nasal spray 1 sprays, Nasal, Once, PRN other (see comment), may repeat every 2 to 3 minutes until patient responds, # 2 EA, 0 Refill(s), Pharmacy: [facility] Start Date: 09/25/22 Status: Ordered sildenafil 100 mg oral tablet 1 tab, Oral, Daily, # 10 tab, 3 Refill(s), Pharmacy: [facility], 180.34, cm, 07/23/23 9:23:00 EDT, Height Start Date: 08/19/23 Stop Date: 12/17/23 Status: Ordered traZODone 50 mg oral tablet 1 tab, Oral, every night at bedtime, # 90 tab, 3 Refill(s), Pharmacy: [facility] Start Date: 03/19/23 Stop Date: 03/13/24 Status: Ordered triamcinolone 0.025% topical cream 1 ignacio, Topical, BID, PRN itching/rash, apply a thin film to affected area Steroid cream for itchingand redness., # 60 g, 0 Refill(s), Pharmacy: [facility] Start Date: 08/22/22 Stop Date: 09/05/22 Status: Ordered triamcinolone 0.5% topical ointment 1 ignacio, Topical, BID, # 430 g, 0 Refill(s), Pharmacy: [facility] Start Date: 12/25/22 Stop Date: 01/08/23 Status: Ordered zolpidem 10 mg oral tablet 10 mg = 1 tab, Oral, every night at bedtime, swallow whole do not crush or chew, # 28 tab, 1 Refill(s), Pharmacy: [facility] Start Date: 07/29/23 Stop Date: 09/23/23 [...] Results Laboratory List Name Date .Morphology ([facility]) 08/24/23 Automated Diff 08/24/23 CBC w/ Diff 08/24/23 Comprehensive Metabolic Panel 08/24/23 Folate Level 08/24/23 Sedimentation Rate (ESR) 08/24/23 Vitamin B12 Level 08/24/23 Most recent to oldest [Reference Range]: 1 WBC [5.0-10.0 x10^3/mcL] 6.8 x10^3/mcL (08/24/23 11:14 AM) RBC [4.6-6.0 x10^6/mcL] 4.0 x10^6/mcL *LOW* (08/24/23 11:14 AM) Neutro Auto [40.0-75.0 %] 52.6 % (08/24/23 11:14 AM) Lymph Auto [20.0-50.0 %] 34.3 % (08/24/23 11:14 AM) Gray Auto [2.0-15.0 %] 9.9 % (08/24/23 11:14 AM) Basophil Auto [0.0-1.0 %] 1.0 % (08/24/23:14 AM) BUN [7-18 mg/dL] 9 mg/dL (08/24/23 11:14 AM) Glucose Level [74-106 mg/dL] 114 mg/dL *HI* (08/24/23:14 AM) Potassium Level [3.5-5.1 mmol/L] 4.3 mmo l/L (08/24/2314 AM) MCV [80.0-96.0 fL] 104.8 fL *HI* (08/24/23:14 AM) RBC Morph Abnormal (08/24/23:14 AM) AST [15-37 unit/L] 50 unit/L *HI* (08/24/23: AM) ALT [16-63 unit/L] 76 unit/L *HI* (08/24/23: AM) MCHC [31.0-35.0 g/dL] 32.9 g/dL (08/24/23 AM) Sodium Level [136-145 mmol/L] 135 mmol/L *LOW* (08/24/23 AM) Folate Level [8.6-58.9 ng/mL] 5.2 ng/mL *LOW* (08/24/23: AM) Hct [41.0-51.0 %] 41.9 % (08/24/23: AM) Calcium Level [8.5-10.1 mg/dL] 9.0 mg/dL (08/24/23 AM) Albumin Level [3.4-5.0 g/dL] 3.7 g/dL (08/24/23 AM) Protein Total [6.4-8.2 g/dL] 7.6 g/dL (08/24/23:14 AM) MCH [26.0-32.0 pg] 34.5 pg *HI* (08/24/23 AM) Neutro Absolute 3.6 x10^3/mcL *NA* (08/24/23:14 AM) Bilirubin Total [0.2-1.0 mg/dL] 0.8 mg/d L (08/24/2314 AM) Hgb [14.0-18.0 g/dL] 13.8 g/dL *LOW* (08/24/23 11:14 AM) B12 Level [193-986 pg/mL] 314 pg/mL (08/24/23 11:14 AM) Alk Phos [46-146 unit/L] 67 unit/L (08/24/23 11:14 AM) Platelets [130-450 x10^3/mcL] 191 x10^3/ mcL (08/24/23 11:14 AM) CO2 [21-32 mmol/L] 28 mmol/L (08/24/23 11:14 AM) Macrocyte Small (08/24/23 11:14 AM) eGFR Non-AA [>=60] 61 (08/24/23 11:14 AM) eGFR AA [>=60] 61 (08/24/23 11:14 AM) Chloride Level [98-107 mmol/L] 100 mmol/ L (08/24/23 11:14 AM) RDW-CV [11.5-14.5 %] 14.7 % *HI* (08/24/23 11:14 AM) Stomatocyte Rare (08/24/23 11:14 AM) Imm Gran Auto [0.0-0.9 %] 0.1 % (08/24/23 11:14 AM) Slide Review Morph Only (08/24/23:14 AM) Creatinine Level [0.70-1.30 mg/dL] 1.33 mg/dL *HI* (08/24/23 11:14 AM) Plt Estimation [Adequate] Adequate (08/24/23 11:14 AM) Eos, Auto [1.0-6.0 %] 2.1 % (08/24/23 11:14 AM) ESR, Westergren [0-20 mm/hr] 1 mm/hr (08/24/23 11:14 AM) Social History Social History Type Response Tobacco Never tobacco user T obacco Use:. Sex Male Patient Care team information Care Team Personnel Name: Astrid Mcdonough MD Position: No Access Member Role: Informed Provider Address: Address: [address] [place] [address] [place] [address] [place] Care Team Related Persons Name: VADIM COSTA
--- OUTSIDE RECORDS SUMMARY | 2024-08-29 14:10 | XMS_ITS | Continuity of Care Document ---
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) - 03/19/23 Degeneration of cervical intervertebral disc(Discharge Diagnosis) - 03/19/23 Discharge Disposition: Home or Self Care Attending Physician: Astrid Grier MD Admitting Physician: Astrid Grier MD Referring Physician: Astrid Grier MD Allergies, Adverse Reactions, Alerts No Known Medication Allergies Substance Reaction Severity Status allopurinol Skin rash Unknown Active ketoconazole 1 Skin rash Unknown Active 1patient states the rash was from allopurinol not this, and he has used it without issue.%0ALast modified by Alysia Alcaraz 12-24-2020, 08:31 Assessment and Plan Future Appointments Diagnostic Tests Pending * Opioids and Metabolites Confirmation Panel, Urine CTOX 03/19/23 Future Scheduled Tests Radiology* XR Spine Lumbosacral [...] 2Result Comment: Patient Declined Medications [facility] EA, TAKE ONE TABLET BY MOUTH EVERY DAY, 0 Refill(s) Start Date: 03/19/23 Status: Ordered Combivent Respimat CFC free 20 mcg-100 mcg/inh inhalation aerosol 1 puffs, Inhale, As Directed, # 4 g, 0 Refill(s) Start Date: 03/19/23 Status: Ordered DULoxetine 30 mg oral delayed release capsule 30 mg = 1 cap, Oral, BID, # 180 cap, 3 Refill(s), Pharmacy: [facility] Start Date: 07/22/22 Stop Date: 07/17/23 Status: Ordered Eliquis 5 mg oral tablet 5 mg = 1 tab, Oral, BID, # 180 tab, 3 Refill(s), Pharmacy: [facility] Start Date: 07/22/22 Stop Date: 07/17/23 Status: Ordered ergocalciferol 1.25 mg (50,000 intl units) oral capsule 50,000 IntlUnit = 1 cap, Oral, every 2 wk, as directed, # 7 cap, 3 Refill(s), Pharmacy: [facility] Start Date: 07/22/22 Stop Date: 07/17/23 Status: Ordered febuxostat 40 mg oral tablet 1 tab, Oral, Daily, # 90 tab, 3 Refill(s), Pharmacy: [facility] Start Date: 07/22/22 Stop Date: 07/17/23 [...] pain, # 54 tab, 0 Refill(s), Pharmacy: [facility] Start Date: 03/11/23 Stop Date: 03/20/23 Status: Ordered hydrOXYzine hydrochloride 50 mg oral tablet 30 EA, TAKE ONE TABLET BY MOUTH EVERY DAY WITH EVENING MEAL, 0 Refill(s) Start Date: 03/19/23 Status: Ordered ketoconazole 2% topical cream 1 ignacio, Topical, BID, to affected area. Anti-fungal for yeast infection., # 60 g, 0 Refill(s), Pharmacy: [facility] Start Date: 08/22/22 Stop Date: 09/19/22 Status: Ordered losartan 50 mg oral tablet 50 mg = 1 tab, Oral, Daily, # 90 tab, 2 Refill(s), Pharmacy: [facility] Start Date: 03/19/23 Status: Ordered Metoprolol Succinate ER 50 mg oral tablet, extended release 50 mg = 1 tab, Oral, Daily, # 90 tab, 3 Refill(s), Pharmacy: [facility] Start Date: 07/22/22 Stop Date: 07/17/23 Status: Ordered Narcan 4 mg/0.1 mL nasal spray 1 sprays, Nasal, Once, PRN other (see comment), may repeat every 2 to 3 minutes until patient responds, # 2 EA, 0 Refill(s), Pharmacy: [facility] Start Date: 09/25/22 Status: Ordered sildenafil 100 mg oral tablet 1 tab, Oral, Daily, # 10 tab, 11 Refill(s), Pharmacy: [facility] Start Date: 07/22/22 Stop Date: 07/17/23 Status: Ordered traZODone 50 mg oral tablet 1 tab, Oral, every night at bedtime, # 90 tab, 3 Refill(s), Pharmacy: [facility] Start Date: 03/19/23 Stop Date: 03/13/24 Status: Ordered triamcinolone 0.025% topical cream 1 ignacio, Topical, BID, PRN itching/rash, apply a thin film to affected area Steroid cream for itchingand redness., # 60 g, 0 Refill(s), Pharmacy: [facility] Start Date: 08/22/22 Stop Date: 09/05/22 Status: Ordered triamcinolone 0.5% topical ointment 1 ignacio, Topical, BID, # 430 g, 0 Refill(s), Pharmacy: [facility] Start Date: 12/25/22 Stop Date: 01/08/23 Status: Ordered zolpidem 10 mg oral tablet 10 mg = 1 tab, Oral, every day at bedtime, PRN as needed for insomnia, # 28 tab, 0 Refill(s), Pharmacy: [facility] Start Date: 12/25/22 Status: Ordered zolpidem 10 mg oral tablet 10 mg = 1 tab, Oral, every day at bedtime, PRN as needed for insomnia, # 28 tab, 0 Refill(s), Pharmacy: [facility] Start Date: 12/25/22 Status: Ordered zolpidem 10 mg oral tablet 10 mg = 1 tab, Oral, every night at bedtime, swallow whole do not crush or chew, # 28 tab, 3 Refill(s), Pharmacy: [facility] Start Date: 09/25/22 Stop Date: 01/15/23 [...] Urine (Drug Screen Urine w/ Opiate Conf) 03/19/23 Most recent to oldest [Reference Range]: 1 U Amph Scrn [Negative] Negative (03/19/23 12:10 PM) U Benzodia Scrn [Negative] Negative (03/19/23 12:10 PM) U Cocaine Scrn [Negative] Negative (03/19/23 12:10 PM) U Amina Scrn [Negative] Negative (03/19/23 12:10 PM) U Opiate Scrn [Negative] Positive *ABN* (03/19/23 12:10 PM) U Oxy Scrn [Negative] Negative (03/19/23 12:10 PM) U PCP Scrn [Negative] Negative (03/19/23 12:10 PM) U THC Scr [Negative] Positive *ABN* (03/19/23 12:10 PM) U PPX Scr [Negative] Negative (03/19/23 12:10 PM) U Methadone Scr [Negative] Negative (03/19/23 12:10 PM) U Buprenorph Scr [Negative] Negative (03/19/23 12:10 PM) U mAMP Scr [Negative] Negative (03/19/23 12:10 PM) U TCA Scr [Negative] Negative (03/19/23 12:10 PM) Social History Social History Type Response Tobacco Never tobacco user T obacco Use:. Sex Male Patient Care team information Care Team Personnel Name: Alek Esparza MD Position: Physician Member Role: Primary Care Physician Address: Address: [facility] [place] [address]- Care Team Related Persons Name: VADIM COSTA
--- OUTSIDE RECORDS SUMMARY | 2024-08-29 14:10 | XMS_ITS | Continuity of Care Document ---
Author Organization [facility] Address [address] [place] [address] Care Team Providers Care Pharmaceutical Sales Specialist Name Role Phone Astrid Grier Primary Care Physician Encounter [facility] Date(s): 04/22/23 - 04/22/23 [facility] [address] [place] [address] Encounter Diagnosis Obstructive sleep apnea(Discharge Diagnosis) - 04/22/23 Psychophysiological insomnia(Discharge Diagnosis) - 04/22/23 Discharge Disposition: Home or Self Care Attending Physician: Arely Hanley POLICE JUDGE Allergies, Adverse Reactions, Alerts No Known Medication Allergies Substance Reaction Severity Status allopurinol Skin rash Unknown Active ketoconazole 1 Skin rash Unknown Active 1patient states the rash was from allopurinol not this, and he has used it without issue.%0ALast modified by Alysia Alcaraz 12-24-2020, 08:31 Assessment and Plan Future Appointments Future Scheduled Tests Radiology* XR Spine Lumbosacral 2 or 3 Views 12/25/22 Functional Status 04/22/23 Other exposure to Infectious Disease Non e [...] BID, # 180 cap, 3 Refill(s), Pharmacy: [id number] Start Date: 07/22/22 Stop Date: 07/17/23 Status: Ordered Eliquis 5 mg oral tablet 5 mg = 1 tab, Oral, BID, # 180 tab, 3 Refill(s), Pharmacy: [facility] Start Date: 07/22/22 Stop Date: 07/17/23 Status: Ordered ergocalciferol 1.25 mg (50,000 intl units) oral capsule 50,000 IntlUnit = 1 cap, Oral, every 2 wk, as directed, # 7 cap, 3 Refill(s), Pharmacy: [facility] Start Date: 07/22/22 Stop Date: 07/17/23 Status: Ordered febuxostat 40 mg oral tablet 1 tab, Oral, Daily, # 90 tab, 3 Refill(s), Pharmacy: [facility] Start Date: 07/22/22 Stop Date: 07/17/23 [...] wean., # 168 tab, 0 Refill(s), Pharmacy: [facility] Start Date: 05/20/23 Stop Date: 06/17/23 Status: Ordered HYDROcodone-acetaminophen 10 mg-325 mg oral tablet 1 tab, Oral, every 4 hr, PRN as needed for pain, Take 1 tablet every 4-6 hours as needed for severepain. Recommendations to decrease to 5 tablets daily for upcoming wean., # 168 tab, 0 Refill(s), Pharmacy: [facility] Start Date: 04/22/23 Stop Date: 05/20/23 Status: Ordered hydrOXYzine hydrochloride 50 mg oral tablet 30 EA, TAKE ONE TABLET BY MOUTH EVERY DAY WITH EVENING MEAL, 0 Refill(s) Start Date: 03/19/23 Status: Ordered ketoconazole 2% topical cream 1 ignacio, Topical, BID, to affected area. Anti-fungal for yeast infection., # 60 g, 0 Refill(s), Pharmacy: [facility] Start Date: 08/22/22 Stop Date: 09/19/22 Status: Ordered losartan 50 mg oral tablet 50 mg = 1 tab, Oral, Daily, # 90 tab, 2 Refill(s), Pharmacy: [facility] Start Date: 03/19/23 Status: Ordered Metoprolol Succinate ER 50 mg oral tablet, extended release 50 mg = 1 tab, Oral, Daily, # 90 tab, 3 Refill(s), Pharmacy: [facility] Start Date: 07/22/22 Stop Date: 07/17/23 Status: Ordered Narcan 4 mg/0.1 mL nasal spray 1 sprays, Nasal, Once, PRN other (see comment), may repeat every 2 to 3 minutes until patient responds, # 2 EA, 0 Refill(s), Pharmacy: [facility] Start Date: 09/25/22 Status: Ordered sildenafil 100 mg oral tablet 1 tab, Oral, Daily, # 10 tab, 11 Refill(s), Pharmacy: [facility] Start Date: 07/22/22 Stop Date: 07/17/23 Status: Ordered traZODone 50 mg oral tablet 1 tab, Oral, every night at bedtime, # 90 tab, 3 Refill(s), Pharmacy: [facility] Start Date: 03/19/23 Stop Date: 03/13/24 Status: Ordered triamcinolone 0.025% topical cream 1 ignacio, Topical, BID, PRN itching/rash, apply a thin film to affected area Steroid cream for itchingand redness., # 60 g, 0 Refill(s), Pharmacy: [facility] Start Date: 08/22/22 Stop Date: 09/05/22 Status: Ordered triamcinolone 0.5% topical ointment 1 ignacio, Topical, BID, # 430 g, 0 Refill(s), Pharmacy: [facility] Start Date: 12/25/22 Stop Date: 01/08/23 Status: Ordered zolpidem 10 mg oral tablet 10 mg = 1 tab, Oral, every day at bedtime, PRN as needed for insomnia, # 28 tab, 0 Refill(s), Pharmacy: [facility] Start Date: 12/25/22 Status: Ordered zolpidem 10 mg oral tablet 10 mg = 1 tab, Oral, every day at bedtime, PRN as needed for insomnia, # 28 tab, 0 Refill(s), Pharmacy: [facility] Start Date: 12/25/22 Status: Ordered zolpidem 10 mg oral tablet 10 mg = 1 tab, Oral, every night at bedtime, swallow whole do not crush or chew, # 28 tab, 3 Refill(s), Pharmacy: [facility] Start Date: 03/25/23 Stop Date: 07/15/23 [...] Range]: 1 Peripheral Pulse Rate [60-100 bpm] 89 bp m (04/22/23 1:13 PM) Blood Pressure [90-140/60-90 mmHg] 97/57 mmHg (04/22/23 1:13 PM) Weight 117.93 kg (04/22/23 1:13 PM) Weight Measured (lbs) 259.991 lb (04/22/23 1:13 PM) Height 178 cm (04/22/23 1:13 PM) Height/Length Measured (inches) 70.08 in ch (04/22/23 1:13 PM) BSA Measured 2.41 m2 (04/22/23 1:13 PM) Body Mass Index 37.22 kg/m2 (04/22/23 1:13 PM) Social History Social History Type Response Tobacco Never tobacco user T obacco Use:. Sex Male Polysomnography (sleep) study * Jonas Bailey M: PERFORM Event Display: Sleep Study Authored Date: [id number] Physician Outpatient Note * Arely Hanley POLICE JUDGE: PERFORM Event Display: Office Clinic Note Physician Authored Date: [id number] BRENDA ESTEBAN :1960 Age:63 years Sex:Male Visit Date:04/22/2023 Primary Care Physician: Astrid Grier MD Chief Complaint new patient sleep consult History of Present Illness Sleep Medicine New Patient Consult pleasant??63 year old??male??who presents for sleep consultation at kind request of??Dr. Astrid Meyers ?? PREVIOUS SLEEP EVALUATION:Reviewed in detail and summarized in the Sleep Clinical Timeline.? CHIEF COMPLAINT/HISTORY OF PRESENT ILLNESS: Patients reports biggest problem with sleep is??falling asleep, staying asleep ?? SLEEP SCHEDULE:??Bedtime 11 pm, Sleep onset latency??greater than 60 minutes??, wakes 5-7 times pernight, Able to fall back asleep within??few minutes, Wake time 6 am. Naps??None regularly. SLEEP ENVIRONMENT:No environmental disruptions identified.?? SLEEP QUALITY:Fair?? DAYTIME/NEUROCOGNITIVE FUNCTION:Low energy. Sleepy??Problems with mood?? SLEEP RELATED THOUGHTS/BEHAVIORS:Volin active mind.___?? SLEEP BREATHING:Loud snoring.Waking up gasping for air.___?? LEG SYMPTOMS:Legs move before sleep and/or during sleep.____Toss and turn at night.Sheets are messyafter sleep.?? MOVEMENT SYMPTOMS:??No sleepwalking. DREAM SYMPTOMS:Deny dream enacting behavior..??Deny hypnogogic or hynopompic hallucinations..??No disturbing dreams.. WEAKNESS SYMPTOMS:Deny cataplexy related symptoms.Deny sleep paralysis.?? DRIVING:Deny drowsy driving._?? OTHER PERTINENT SYMPTOMS: On Ambien and Trazodone for many years, unable to sleep without it.??Also on hydrocodone. PRODUCT/SUBSTANCE USE:??No smoking.??_.??4-5 alcohol??drinks per??day.??Recreational MJ use??daily,every night. 1-2 cups per day SOCIAL HISTORY:??Disabled.??_. Review of Systems +SOB with activity, Afib, lightheadedness, multiple joint pain Physical Exam Vitals & Measurements HR:??89??(Peripheral)?? BP:??97/57?? SpO2:??98%?? HT:??178??cm?? WT:??117.93??kg?? BMI:??37.22?? BSA:??2.41?? General:??well appearing, appearing stated age, no acute distress,??obese??build HEENT: atraumatic skull, anicteric, crowded airway CARDIAC: in atrial fibrillation RESPIRATORY: quiet respiration, able to speak in full sentences without dyspnea, no accessory muscle use SKIN: no facial skin rash, no facial skin lesions PSYCHIATRIC: well groomed, fluent speech, good insight, linear thought process, good eye contact,balanced??affect NEUROLOGIC: alert, oriented, symmetric facial expression Clinic Assessment/Plan 1.??Obstructive sleep apnea??G47.33 rBenda Esteban is a pleasant 63 year old male here for a new patient sleep consult/re-eval. Previous sleep study results and available clinic notes reviewed in detail. Patient was diagnosed with Obstructive Sleep Apnea in 2011 with an AHI of 5.4/hr but with extremely poor sleep efficiency during the night of his PSG. He was trailed on CPAP therapy but unable to tolerate after 6 weeks, transitioned to oral appliance which he also struggled with and discontinued. ?? Today, he is here complaining of continued sleep-related symptoms: snoring, frequent nocturnal awakenings, nonrestorative sleep, waking up gasping for air, restless sleep, changes to mood, ESS 7/24, [place] Questionnaire 3 out of 3. He has also gained a notable amount of weight since his prior PSG. ?? We had a thorough discussion of Obstructive Sleep Apnea, including pathophysiology, associated assisted cardiovascular, neurocognitive, and overall health effects, and importance of treatment. ?? Adhere to drowsy driving precautions as applicable. ?? Weight loss encouraged. ?? Treatment options discussed. He is interested in re-trying CPAP therapy. ?? Proceed with Diagnostic Polysomnogram. In-facility sleep study requested PSG Instructions: Obtain supine and lateral position sleep for comparison. Document medications taken on night of PSG. Patient takes Ambien, Trazodone, and hydrocodone??at night. He will bring his rxin with him. Pt is aware of no- smoking and alcohol policy. ?? 2.??Psychophysiological insomnia??F51.04 Patient has a decade+ long history of insomnia and poor sleep hygiene, noted even on his prior diagnostic PSG that he watched TV from 12:54am to 3AM. He has been taking Ambien 10mg and Trazodone 50mgfor many years, smokes marijuana before bed, and has a few alcoholic drinks before bed. Will discuss sleep hygiene further at length once he has had his repeat diagnostic PSG. ?? I provided greater than??60??minutes in the care of this patient, more than half the time was spentin [id number] counseling. ?with comorbidities of Afib, chronic back pain, HTN, rheumatoid arthritis, chronic insomnia, obesity, hx of Lyme disease, HLD, chronic pain on Hydrocodone, asthma ? Clinical Data Reviewed: [place] Sleepiness Scale: 05/04 ?? [place] Questionnaire: 12/12 ?? Sleep Clinical Timeline:?? 11/03/2011: Diagnostic PSG. C/o [...] restless sleep, changes to mood, ESS 05/04, [place] Questionnaire 3 out of 3. Patient is taking Ambien 10mg, Trazodone 50mg for insomnia nightly, and Hydrocodone for chronic pain. Drinks alcohol and smokes marijuana for sleep nightly. ?? Today's Assessment and Plan: See above ?? Follow up: 2 months or sooner if needed. ?? Remote Scribed by Seble Elaine ?? Problem List/Past Medical History Ongoing Adenomatous polyp [...] persistent asthma Muscle pain Myalgia/myositis - multiple Obstructive sleep apnea Obstructive sleep apnea syndrome Pain of left hip joint Psychophysiologic insomnia Psychophysiological insomnia Sciatica Tinea corporis [...] Instructions Unchanged adalimumab (Humira Pen 40 mg/ 0.4 mL subcutaneous kit) 40 Milligrams Subcutaneous (under the skin) Every other week Unchanged adalimumab (Humira Pen 40 mg/ 0.8 mL subcutaneous kit) 2 unknown unit ?? Unchanged apixaban (Eliquis 5 mg oral [...] mouth) Every day Duration: 90 Days Unchanged naloxone (Narcan 4 mg/ 0.1 mL nasal spray) 1 Sprays Nasal (into the nose) Once as needed for other (see comment) Respiratory suppression may repeat every 2 to 3 minutes until patient responds ?? Unchanged Other Prescription [facility] 90 EA, TAKE ONE TABLET BY [...] cream for itching and redness. ?? Unchanged triamcinolone topical (triamcinolone 0.5% topical ointment) 1 Application Topical (on the skin) 2 times a day Long-term use of high-risk medication Encounter for chronic pain management Arthritis Herniation of lumbar intervertebral disc with sciatica Degeneration of cervical intervertebral disc Duration: 14 Days Unchanged zolpidem (zolpidem 10 mg oral tablet) 1 tab Oral (given by mouth) Every night at bedtime as needed for as needed for insomnia Long-term use of high-risk medication Encounter for chronic pain management Arthritis Herniation of lumbar intervertebral disc with sciatica Degeneration of cervical intervertebral disc Unchanged zolpidem (zolpidem 10 mg oral tablet) 1 tab Oral (given by mouth) Every night at bedtime as needed for as needed for insomnia Long-term use of high-risk medication Encounter for chronic pain management Arthritis Herniation of lumbar intervertebral disc with sciatica Degeneration of cervical intervertebral disc Unchanged zolpidem (zolpidem 10 mg oral tablet) 1 tab Oral (given by mouth) Every night at bedtime Duration: 28 Days swallow whole do not crush or chew ?? Allergies No Known Medication Allergies allopurinol??(Skin rash) ketoconazole??(Skin rash) Social History Electronic Cigarette/Vaping Electronic Cigarette Use: Never. Tobacco Never tobacco user Tobacco Use:. Family [...] (Tdap) adult/adol 06/21/2012 Recorded Electronically Signed on 04/22/23 02:00 PM Arely Hanley POLICE JUDGE Electronically Signed on 04/22/23 01:58 PM Seble Elaine Angel M: PERFORM Event Display: Office Clinic Note Physician Authored Date: [id number] Patient Care team information Care Team Personnel Name: Astrid Grier MD Position: Physician Member Role: Primary Care Physician Address: Address: [address] [place] [id number] [place] Care Team Related Persons Name: VADIM COSTA Address: Home
--- OUTSIDE RECORDS SUMMARY | 2024-08-29 14:10 | XMS_ITS | Continuity of Care Document ---
Author Organization [facility] Address [address] [place] [address] Care Team Providers Care Cabin Worker Name Role Phone Alek Esparza Primary Care Physician [phone] Encounter [facility] Date(s): 07/22/22 - 07/22/22 [facility] [address] [place] [address] Encounter Diagnosis Degeneration of cervical intervertebral disc(Discharge Diagnosis) - 07/22/22 Hypertensive disorder(Discharge Diagnosis) - 07/22/22 Encounter for medication monitoring(Discharge Diagnosis) - 07/22/22 Psychophysiologic insomnia(Discharge Diagnosis) - 07/22/22 Chronic gouty arthritis(Discharge Diagnosis) - 07/22/22 Atrial fibrillation(Discharge Diagnosis) - 07/22/22 Hyperlipidemia(Discharge Diagnosis) - 07/22/22 Myalgia/myositis - multiple(Discharge Diagnosis) - 07/22/22 Vitamin D deficiency(Discharge Diagnosis) - 07/22/22 Discharge Disposition: Home or Self Care Attending Physician: Alek Esparza MD Admitting Physician: Alek Esparza MD Allergies, Adverse Reactions, Alerts No Known Medication Allergies Substance Reaction Severity Status allopurinol Skin rash Unknown Active ketoconazole 1 Skin rash Unknown Active 1patient states the rash was from allopurinol not this, and he has used it without issue.%0ALast modified by Alysia Alcaraz 12-24-2020, 08:31 Assessment and Plan Future Appointments Diagnostic Tests Pending * Benzodiazepines Cnfrm, Ur WARSAW 07/22/22 * Opiates Cnfrm, Ur WARSAW 07/22/22 Immunizations Given and Recorded Vaccine Date Status Refusal Reason SARS-CoV-2 (COVID-19) mRNA-1273 vaccine 02/01/21 R ecorded SARS-CoV-2 (COVID-19) mRNA-1273 vaccine 01/07/21 R ecorded influenza virus vaccine, inactivated 07/08/13 Avery rded tetanus/diphth/pertuss (Tdap) adult/adol 06/21/12 Recorded Not Given Vaccine Date Status Refusal Reason zoster vaccine, inactivated 1 04/19/19 Not Given Patient Refuses 1Result Comment: Patient Declined Medications DULoxetine 30 mg oral delayed release capsule 30 mg = 1 cap, Oral, BID, # 180 cap, 3 Refill(s), Pharmacy: [id number] Start Date: 07/22/22 Stop Date: 07/17/23 Status: Ordered Eliquis 5 mg oral tablet 5 mg = 1 tab, Oral, BID, # 180 tab, 3 Refill(s), Pharmacy: [facility] Start Date: 07/22/22 Stop Date: 07/17/23 Status: Ordered ergocalciferol 1.25 mg (50,000 intl units) oral capsule 50,000 IntlUnit = 1 cap, Oral, every 2 wk, as directed, # 7 cap, 3 Refill(s), Pharmacy: [facility] Start Date: 07/22/22 Stop Date: 07/17/23 Status: Ordered febuxostat 40 mg oral tablet 1 tab, Oral, Daily, # 90 tab, 3 Refill(s), Pharmacy: [facility] Start Date: 07/22/22 Stop Date: 07/17/23 Status: Ordered HYDROcodone-acetaminophen 10 mg-325 mg oral tablet 2 tab, Oral, TID, PRN pain, severe, # 168 tab, 0 Refill(s), Pharmacy: [facility] Start Date: 07/22/22 Stop Date: 08/19/22 Status: Ordered HYDROcodone-acetaminophen 10 mg-325 mg oral tablet 2 tab, Oral, TID, PRN as needed for pain, # 168 tab, 0 Refill(s), Pharmacy: [facility] Start Date: 07/22/22 Stop Date: 08/19/22 Status: Ordered HYDROcodone-acetaminophen 10 mg-325 mg oral tablet 2 tabs, Oral, TID, PRN pain, severe, # 168 tab, 0 Refill(s), Pharmacy: [facility] Start Date: 07/22/22 Stop Date: 08/19/22 Status: Ordered hydroxychloroquine 200 mg oral tablet 200 mg = 1 tab, Oral, Daily, # 90 tab, 3 Refill(s), Pharmacy: [facility] Start Date: 07/22/22 Stop Date: 07/17/23 Status: Ordered hydrOXYzine hydrochloride 50 mg oral tablet 50 mg = 1 tab, Oral, With Evening Meal, # 90 tab, 3 Refill(s), [facility]: [facility] Start Date: 07/22/22 Stop Date: 07/17/23 Status: Ordered losartan 50 mg oral tablet 50 mg = 1 tab, Oral, Daily, # 90 tab, 3 Refill(s), Pharmacy: [facility] Start Date: 07/22/22 Stop Date: 07/17/23 Status: Ordered Metoprolol Succinate ER 50 mg oral tablet, extended release 50 mg = 1 tab, Oral, Daily, # 90 tab, 3 Refill(s), Pharmacy: [facility] Start Date: 07/22/22 Stop Date: 07/17/23 Status: Ordered Narcan 4 mg/0.1 mL nasal spray 1 sprays, Nasal, Once, PRN other (see comment), may repeat every 2 to 3 minutes until patient responds, # 2 EA, 0 Refill(s), Pharmacy: [facility] Start Date: 07/22/22 Status: Ordered sildenafil 100 mg oral tablet 1 tab, Oral, Daily, # 10 tab, 11 Refill(s), Pharmacy: [facility] Start Date: 07/22/22 Stop Date: 07/17/23 Status: Ordered sulfaSALAzine 500 mg oral tablet 1,000 mg = 2 tab, Oral, BID, # 360 tab, 3 Refill(s), Pharmacy: [facility] Start Date: 07/22/22 Stop Date: 07/17/23 Status: Ordered traZODone 50 mg oral tablet 1 tab, Oral, every night at bedtime, # 90 tab, 3 Refill(s), Pharmacy: [facility] Start Date: 07/22/22 Stop Date: 07/17/23 Status: Ordered zolpidem 10 mg oral tablet 10 mg = 1 tab, Oral, every night at bedtime, PRN as needed for insomnia, # 28 tab, 2 Refill(s), Pharmacy: [facility] Start Date: 07/22/22 Stop Date: 10/14/22 Status: Ordered Problem List Condition Confirmation Course Effective Dates Status Health Status Informant Adenomatous polyp of colon Confirmed Active Arthritis Confirmed 03/29/21 Active Atrial fibrillation Confirmed Active Benign neoplasm of cerebral meninges Confirmed Active Bilateral shoulder joint pain Confirmed 05/02/21 Active Carpal tunnel syndrome Confirmed Active Chronic gouty arthritis Confirmed 10/19/18 Active Chronic pain Confirmed Active Claustrophobia Confirmed 04/19/19 Active Degeneration of cervical intervertebral disc Confirmed Active Diverticulosis of colon Confirmed 03/17/19 [...] Screen Urine (Drug Screen Urine w/ Reflex) 07/22/22 Most recent to oldest [Reference Range]: 1 U Amph Scrn [Negative] Negative (07/22/22 10:00 AM) U Benzodia Scrn [Negative] Positive *ABN* (07/22/22 10:00 AM) U Cocaine Scrn [Negative] Negative (07/22/22 10:00 AM) U Amina Scrn [Negative] Negative (07/22/22 10:00 AM) U Opiate Scrn [Negative] Positive *ABN* (07/22/22 10:00 AM) U Oxy Scrn [Negative] Negative (07/22/22 10:00 AM) U PCP Scrn [Negative] Negative (07/22/22 10:00 AM) U THC Scr [Negative] Positive *ABN* (07/22/22 10:00 AM) U PPX Scr [Negative] Negative (07/22/22 10:00 AM) U Methadone Scr [Negative] Negative (07/22/22 10:00 AM) U Buprenorph Scr [Negative] Negative (07/22/22 10:00 AM) U mAMP Scr [Negative] Negative (07/22/22 10:00 AM) U TCA Scr [Negative] Negative (07/22/22 10:00 AM) Social History Social History Type Response Tobacco Never tobacco user T obacco Use:. Sex Male Patient Care team information Personnel Name: Alek Esparza MD Address: Address: [address]
--- OUTSIDE RECORDS SUMMARY | 2024-08-29 14:10 | XMS_ITS | Continuity of Care Document ---
Author Organization [facility] Address [address] [place] [address] Care Team Providers Care Dumpling Machine Operator Name Role Phone Astrid Mcdonough Primary Care Physician Encounter [facility] Date(s): 11/04/23 - 11/04/23 [facility] [address] [place] [address] Encounter Diagnosis Chest pain(Discharge Diagnosis) - 09/17/23 Dyspnea(Discharge Diagnosis) - 09/17/23 Atrial fibrillation(Discharge Diagnosis) - 11/04/23 Discharge Disposition: Home or Self Care Attending [...] Office Visit Note Auth or:Anat Cross NP Date:11/04/23 Atrial fibrillation??I48.91 Actions: COMPLETED - 87695 Office/Outpatient Visit - Established Patient, Level 3 (20-29 min)., 11/04/23 8:18:00 EST, Atrial fibrillation FUTURE - Follow-Up Appointment Request [facility], *Est. 12/07/23 +/- 7 days, Future Order, In Approximately, [facility] COMPLETED - Follow-Up Appointment Request [facility], 11/04/23 8:40:00 EST, In Approximately, [facility], 11/04/23 8:40:00 EST ?? Chest pain??R07.9 Actions: COMPLETED - NM Myocardial Rest Stress 2 Day Protocol, 10/28/23 9:33:00 EST, Routine, Reason: Dyspnea, Chest pain, failed treadmill test, Transport Mode: Ambulatory, Chest pain Dyspnea ?? Dyspnea??R06.00 Actions: COMPLETED - NM Myocardial Rest Stress 2 Day Protocol, 10/28/23 9:33:00 EST, Routine, Reason: Dyspnea, Chest pain, failed treadmill test, Transport Mode: Ambulatory, Chest pain Dyspnea ?? Future Appointments Future Scheduled Tests Radiology* XR [...] Daily, # 90 tab, 2 Refill(s), Pharmacy: [facility] Start Date: 06/16/23 Status: Ordered Combivent Respimat CFC free 20 mcg-100 mcg/inh inhalation aerosol 1 puffs, Inhale, As Directed, # 4 g, 0 Refill(s) Start Date: 03/19/23 Status: Ordered DULoxetine 30 mg oral delayed release capsule 30 mg = 1 cap, Oral, BID, # 180 cap, 3 Refill(s), Pharmacy: [facility] Start Date: 07/11/23 Stop Date: 07/05/24 Status: Ordered Eliquis 5 mg oral tablet 5 mg = 1 tab, Oral, BID, # 180 tab, 3 Refill(s), Pharmacy: [facility], 180.34, cm, 07/23/23 9:23:00 EDT, Height, 117.93, kg, 09/08/23 10:25:00 EST, Weight Dosing Start Date: 10/22/23 Stop Date: 10/16/24 Status: Ordered ergocalciferol 1.25 mg (50,000 intl units) oral capsule 50,000 IntlUnit = 1 cap, Oral, every 2 wk, as directed, # 7 cap, 3 Refill(s), Pharmacy: [facility] Start Date: 07/22/22 Stop Date: 07/17/23 Status: Ordered febuxostat 40 mg oral tablet 1 tab, Oral, Daily, # 90 tab, 3 Refill(s), Pharmacy: [facility], 180.34, cm, 07/23/23 9:23:00 EDT, Height, [...] wean., # 168 tab, 0 Refill(s), Pharmacy: [facility], 180.34, cm, 07/23/23 9:23:00 EDT, Height, [...] wean., # 168 tab, 0 Refill(s), Pharmacy: [facility], 180.34, cm, 07/23/23 9:23:00 EDT, Height, [...] wean., # 168 tab, 0 Refill(s), Pharmacy: [facility], 180.34, cm, 07/23/23 9:23:00 EDT, Height, [...] infection., # 60 g, 0 Refill(s), Pharmacy: [facility] Start Date: 08/22/22 Stop Date: 09/19/22 Status: Ordered losartan 50 mg oral tablet 50 mg = 1 tab, Oral, Daily, # 90 tab, 2 Refill(s), Pharmacy: [facility] Start Date: 03/19/23 Status: Ordered Metoprolol Succinate ER 50 mg oral tablet, extended release 50 mg = 1 tab, Oral, Daily, # 90 tab, 3 Refill(s), Pharmacy: [facility], 180.34, cm, 07/23/23 9:23:00 EDT, Height, 117.93, kg, 09/08/23 10:25:00 EST, Weight Dosing Start Date: 09/14/23 Stop Date: 09/08/24 Status: Ordered Narcan 4 mg/0.1 mL nasal spray 1 sprays, Nasal, Once, PRN other (see comment), may repeat every 2 to 3 minutes until patient responds, # 2 EA, 0 Refill(s), Pharmacy: [facility] Start Date: 09/25/22 Status: Ordered sildenafil 100 mg oral tablet 1 tab, Oral, Daily, # 10 tab, 3 Refill(s), Pharmacy: [facility], 180.34, cm, 07/23/23 9:23:00 EDT, Height Start Date: 08/26/23 Stop Date: 12/24/23 Status: Ordered traZODone 50 mg oral tablet 1 tab, Oral, every night at bedtime, # 90 tab, 3 Refill(s), Pharmacy: [facility] Start Date: 03/19/23 Stop Date: 03/13/24 Status: Ordered triamcinolone 0.025% topical cream 1 ignacio, Topical, BID, PRN itching/rash, apply a thin film to affected area Steroid cream for itchingand redness., # 60 g, 0 Refill(s), Pharmacy: [facility] Start Date: 08/22/22 Stop Date: 09/05/22 Status: Ordered zolpidem 10 mg oral tablet 10 mg = 1 tab, Oral, every night at bedtime, swallow whole do not crush or chew, # 28 tab, 1 Refill(s), Pharmacy: [facility], 180.34, cm, 07/23/23 9:23:00 EDT, Height, [...] Range]: 1 Peripheral Pulse Rate [60-100 bpm] 106 b pm *HI* (11/04/23 8:20 AM) Blood Pressure [90-140/60-90 mmHg] 122/7 0mmHg (11/04/23 8:20 AM) Mean Arterial Pressure, Cuff [70-110 mmH g] 87 mmHg (11/04/23 8:20 AM) Weight 118.20 kg (11/04/23 8:20 AM) Weight Measured (lbs) 260.586 lb (11/04/23 8:20 AM) Weight Dosing 118.200 kg (11/04/23 8:20 AM) Height 180.34 cm (11/04/23 8:20 AM) Height/Length Measured (inches) 71 inch (11/04/23 8:20 AM) BSA Measured 2.43 m2 (11/04/23 8:20 AM) Body Mass Index 36.34 kg/m2 (11/04/23 8:20 AM) Social History Social History Type Response Tobacco Never tobacco user T obacco Use:. Sex Male Physician Outpatient Note * Anat Cross ORACLE DATABASE ANALYST: PERFORM Event Display: Office Clinic Note Physician Authored Date: [id number] BRENDA JAVED :1960 Age:63 years Sex:Male Visit Date:11/04/2023 Primary Care Physician: Astrid Mcdonough MD History of Present Illness Cardiac Problems: 1.Chronic Atrial fibrillation 2.Hypertension-atorvastatin 20mg, Eliquis 5mg BID, losartan 50mg, metoprolol succinate 75mg 3.Hyperlipidemia 4.TYRON ?? This is a 63-year-old gentleman that I last saw in the office on??07/21/2023??for??increased symptoms related to his rate controlled??chronic atrial fibrillation.?? A Holter monitor showed adequate rate control, and his PCP increased his metoprolol from 50 to 75 mg daily and to continue Eliquis.?? At her last appointment he was stating he was getting lightheaded frequently when he gets up??which is increased with heat or??with diaphoresis, as well as??faster heartbeat most of the day every day.?? With lightheadedness and palpitations and daily we would like to get him back into sinus rhythm with an antiarrhythmic such as flecainide,??but we were unsure if there were any contraindicationsto flecainide such as coronary artery disease or valve disease. ??I ordered a stress test and echocardiogram??to determine if there were any contraindications for flecainide. Echo showed EF of 65% with normal wall motion, diastolic indices difficult to interpret with A-fib, RA mildly dilated, LA nor mal, no significant valve disease, PAP normal at 28 mmHg. Lexiscan showed: Normal myocardial perfusion with no evidence of ischemia or prior infarct. Normal LV function with normal wall motion and ejection fraction greater than 60%. ?? He states he is??a lot better than a few weeks ago.?? He said a few weeks ago he felt 6 out of 10??nonradiating??chest discomfort in his left chest that lasted??for??a couple of minutes, and occurred1-2 times per day for 3 to 4 days.?? He states that it was a tightness in his left chest??that??corresponded with??dyspnea but no nausea/diaphoresis/syncope/radiation. ??It turns out??his PCP had changed him from 50 mg daily of metoprolol to 25 mg??3 times daily and he was not aware of this change and was only taking 25 mg once a day. ??Once he figured out and read the??label??more closely??afternot feeling well??his dyspnea and??chest pain??dissolved. ??He also states that he has a strong hist ory of rheumatoid arthritis??and will frequently have pains??everywhere. ??This chest pain and dyspnea has not occurred since a couple of weeks ago??with this medication mixup.?? He does report that his he is feeling his atrial fibrillation, which feels like racing??and lightheadedness??every single day at least once a day??especially when changing position. ??He states that he could feel his A-fib when coming into the hospital today??because it felt like a faster rhythm and he was getting lightheaded. ?? Overall his breathing??he states is good, he denies??dyspnea and syncope, PND, and edema.?? He just recently started on a CPAP machine and is doing well with this as well.?? He is walking about 10minutes??at 1 time??every day. ??He remarks that he feels better with the walking and denies signs of ischemia such as chest pain or shortness of breath while doing this.?? He is not taking his bloodpressure at home but he does have an arm blood pressure cuff??if he needs to do this. ??He is well-controlled here in the office today. Review of Systems A complete review of systems is negative other than as noted in the history of present illness. Physical Exam Vitals & Measurements HR:??106??(Peripheral)?? BP:??122/70?? SpO2:??96%?? HT:??180.34??cm?? WT:??118.20??kg?? BMI:??36.34?? BSA:??2.43?? HEENT: Normocephalic, atraumatic Respirations: Clear to auscultation bilaterally with no wheezes rubs or rhonchi Cardiac: irregular rate and rhythm, normal S1, S2, no murmurs gallops or rubs Abdomen: Nontender nondistended normal active bowel sounds Extremities: 2+ dorsalis pedis pulses bilaterally with no significant edema Medical Decision Making Data Review: 07/29/2019: [facility]:Impression atrial fibrillation on Eliquis, poorly controlled of [...] IVCD with QRS duration of 117 ms ?? 63-year-old gentleman with paroxysmal atrial fibrillation ? Atrial fibrillation:??He is in atrial fibrillation with a ventricular rate of 102 bpm today in the office.?? He is??quite symptomatic with lightheadedness and feeling his palpitations every singleday at least once a day.?? He would like to??move forward with getting into a normal rhythm, I did discuss with him that there??is a lot of evidence that getting him into a normal rhythm will make him feel better.?? We discussed the results of his echocardiogram as well as his Lexiscan stress test which were both reassuring and??showed normal myocardial perfusion with no evidence of ischemia and preserved ejection fraction.?? Given the results of these tests we??could move forward with??prescribing flecainide 100 mg twice daily for about a month. ??I would like to bring him back in 1 month tosee if he is still in atrial fibrillation. ??If he is in sinus rhythm then we will continue with flecainide twice daily??for the near??foreseeable future. ??However if he is still in atrial fibrillation we will then look at scheduling a cardioversion. ??We did go over the process of cardioversion??and potentially??ablation down the road we touched on??briefly.?? However, Given his report of the chest discomfort and shortness of breath when his medication mixup was??occurring, I did consult Dr. Reid to see if we should continue to move forward with flecainide or, what I felt??would possiblybe the safest route,??have him referred for a heart??catheterization to make sure were not giving him a med that could be dangerous.?? The fact that his symptoms got worse with less metoprolol vaguely points in the direction of it being cardiac so the probably better safe than sorry and refer for heart catheterization to make sure there is not any coronary artery disease, and then we can move forward with the flecainide.?? I called Brenda to discuss this with him and he would like to move forward.?? I did discuss with Brenda once I called him back??that we would like him to be seen for a heart catheterization to ensure that there is no coronary artery disease, if they do not see any coronary artery disease we can move forward with flecainide. ??However if they do see coronary artery diseaseor they end up treating him with a stent,??then we would have to go??rule out flecainide and??do either sotalol or Tikosyn which would be an admission into the hospital. ??We are not currently doing that here at [facility] but that would again be done at [facility]??and he said to move forward with this. ??We will refer to [facility] for a left heart catheterization??to rule out coronary artery disease to be able to move forward with??getting him into a normal rhythm. ? Hypertension:??He is well-controlled here in the office but he does not take his blood pressure at home. ??I did encourage him to??check his blood pressure at home occasionally and get us the average. ??Will see him in 1 month to check in on how he is doing on the flecainide??and to see if we need to move forward with a cardioversion. ??He knows to call in with any questions or concerns??in the meantime. ??It was a pleasure to see Brenda. Clinic Assessment/Plan Atrial fibrillation??I48.91 Actions: COMPLETED - [id number] Office/Outpatient Visit - Established Patient, Level 3 (20-29 min)., 11/04/23 8:18:00 EST, Atrial fibrillation FUTURE - Follow-Up Appointment Request [facility], *Est. 12/07/23 +/- 7 days, Future Order, In [facility], [facility] COMPLETED - Follow-Up Appointment Request [facility], 11/04/23 8:40:00 EST, In [facility], 11/04/23 8:40:00 EST ?? Chest pain??R07.9 Actions: COMPLETED - NM Myocardial Rest Stress 2 Day Protocol, 10/28/23 9:33:00 EST, Routine, Reason: Dyspnea, Chest pain, failed treadmill test, Transport Mode: Ambulatory, Chest pain Dyspnea ?? Dyspnea??R06.00 Actions: COMPLETED - NM Myocardial Rest Stress 2 Day Protocol, 10/28/23 9:33:00 EST, Routine, Reason: Dyspnea, Chest pain, failed treadmill test, Transport Mode: Ambulatory, Chest pain Dyspnea ?? Problem List/Past Medical History Ongoing Adenomatous [...] patient responds ?? Unchanged Other Prescription ([facility] Prescription) 90 EA, TAKE ONE TABLET BY [...] (Tdap) adult/adol 06/21/2012 Recorded Electronically Signed on 11/04/23 10:46 AM Anat Cross NP Patient Care team information Care Team Personnel Name: Astrid Mcdonough MD Position: Physician Member Role: Informed Provider Address: Address: [address] [place] [address] [place] [address] Care Team Related Persons Name: VADIM COSTA
--- OUTSIDE RECORDS SUMMARY | 2024-08-29 14:10 | XMS_ITS | Continuity of Care Document ---
Author Organization [facility] Address [address] [place] [address] Care Team Providers Care Bacon Skin Lifter Name Role Phone Alek Esparza Primary Care Physician Encounter [facility] Date(s): 08/07/22 - 08/07/[address] [address] Discharge Disposition: Home or Self Care Attending Physician: Baldomero Neal Admitting Physician: Baldomero Neal Referring Physician: Teofilo Cotton Allergies, Adverse Reactions, Alerts No Known Medication Allergies Substance Reaction Severity Status allopurinol Skin rash Unknown Active ketoconazole 1 Skin rash Unknown Active 1patient states the rash was from allopurinol not this, and he has used it without issue.%0ALast modified by Alysia Alcaraz 12-24-2020, 08:31 Assessment and Plan Future Appointments Diagnostic Tests Pending * QuantiFERON-TB Gold Plus, WB [facility] 08/07/22 * Hepatitis C Ab w/Rflx to HCV RNA PCR [facility] 08/07/22 * Hepatitis B Surface Antibody UV 08/07/22 * Hepatitis B Surface Antigen UV 08/07/22 * Hepatitis B Core Antibody (Total) UV 08/07/22 Immunizations Given and Recorded Vaccine Date Status [...] BID, # 180 cap, 3 Refill(s), Pharmacy: [facility] Start Date: 07/22/22 Stop Date: 07/17/23 Status: Ordered Eliquis 5 mg oral tablet 5 mg = 1 tab, Oral, BID, # 180 tab, 3 Refill(s), Pharmacy: [facility] Start Date: 07/22/22 Stop Date: 07/17/23 Status: Ordered ergocalciferol 1.25 mg (50,000 intl units) oral capsule 50,000 IntlUnit = 1 cap, Oral, every 2 wk, as directed, # 7 cap, 3 Refill(s), Pharmacy: [facility] Start Date: 07/22/22 Stop Date: 07/17/23 Status: Ordered febuxostat 40 mg oral tablet 1 tab, Oral, Daily, # 90 tab, 3 Refill(s), Pharmacy: [facility] Start Date: 07/22/22 Stop Date: 07/17/23 Status: Ordered HYDROcodone-acetaminophen 10 mg-325 mg oral tablet 2 tab, Oral, TID, PRN pain, severe, # 168 tab, 0 Refill(s), Pharmacy: [facility] Start Date: 07/22/22 Stop Date: 08/19/22 Status: Ordered HYDROcodone-acetaminophen 10 mg-325 mg oral tablet 2 tab, Oral, TID, PRN as needed for pain, # 168 tab, 0 Refill(s), Pharmacy: [facility] Start Date: 07/22/22 Stop Date: 08/19/22 Status: Ordered HYDROcodone-acetaminophen 10 mg-325 mg oral tablet 2 tabs, Oral, TID, PRN pain, severe, # 168 tab, 0 Refill(s), Pharmacy: [facility] Start Date: 07/22/22 Stop Date: 08/19/22 Status: Ordered hydroxychloroquine 200 mg oral tablet 200 mg = 1 tab, Oral, Daily, # 90 tab, 3 Refill(s), Pharmacy: [facility] Start Date: 07/22/22 Stop Date: 07/17/23 Status: Ordered hydrOXYzine hydrochloride 50 mg oral tablet 50 mg = 1 tab, Oral, With Evening Meal, # 90 tab, 3 Refill(s), Pharmacy: [facility] Start Date: 07/22/22 Stop Date: 07/17/23 Status: Ordered losartan 50 mg oral tablet 50 mg = 1 tab, Oral, Daily, # 90 tab, 3 Refill(s), Pharmacy: [facility] Start Date: 07/22/22 Stop Date: 07/17/23 Status: Ordered Metoprolol Succinate ER 50 mg oral tablet, extended release 50 mg = 1 tab, Oral, Daily, # 90 tab, 3 Refill(s), Pharmacy: [facility] Start Date: 07/22/22 Stop Date: 07/17/23 Status: Ordered Narcan 4 mg/0.1 mL nasal spray 1 sprays, Nasal, Once, PRN other (see comment), may repeat every 2 to 3 minutes until patient responds, # 2 EA, 0 Refill(s), Pharmacy: [facility] Start Date: 07/22/22 Status: Ordered sildenafil 100 mg oral tablet 1 tab, Oral, Daily, # 10 tab, 11 Refill(s), Pharmacy: [facility] Start Date: 07/22/22 Stop Date: 07/17/23 Status: Ordered sulfaSALAzine 500 mg oral tablet 1,000 mg = 2 tab, Oral, BID, # 360 tab, 3 Refill(s), Pharmacy: [facility] Start Date: 07/22/22 Stop Date: 07/17/23 Status: Ordered traZODone 50 mg oral tablet 1 tab, Oral, every night at bedtime, # 90 tab, 3 Refill(s), Pharmacy: [facility] Start Date: 07/22/22 Stop Date: 07/17/23 Status: Ordered zolpidem 10 mg oral tablet 10 mg = 1 tab, Oral, every night at bedtime, # 28 tab, 2 Refill(s), Pharmacy: [facility] Start Date: 07/29/22 Stop Date: 10/21/22 Status: Ordered zolpidem 10 mg oral tablet 10 mg = 1 tab, Oral, every night at bedtime, PRN as needed for insomnia, # 28 tab, 2 Refill(s), Pharmacy: [facility] Start Date: 07/22/22 Stop Date: 10/14/22 [...] Patient Care team information Personnel Name: Alek sEparza MD Address: Address: [id number] [place] [address]
--- OUTSIDE RECORDS SUMMARY | 2024-08-29 14:10 | XMS_ITS | Continuity of Care Document ---
Author Organization [facility] f or Sleep Disorders Address [address] [place] [address] Care Team Providers Care Hoisting Pile Driving Engineer Name Role Phone Astrid Mcdonough Primary Care Physician Encounter [facility] Date(s): 07/23/23 - 07/23/23 [facility] [address] [place] [address] Encounter Diagnosis Obstructive sleep apnea(Discharge Diagnosis) - 07/23/23 Nocturnal hypoxemia(Discharge Diagnosis) - 07/23/23 Psychophysiologic insomnia(Discharge Diagnosis) - 07/23/23 Discharge Disposition: Home or Self Care Attending Physician: Arely Hanley NP Referring Physician: Arely Hanley NP Allergies, Adverse Reactions, [...] by CHANO,RN. 2Result Comment: Patient Declined Medications [facility] Pres[facility] 90 EA, TAKE ONE TABLET BY MOUTH EVERY DAY, 0 Refill(s) Start Date: 03/19/23 Status: Ordered atorvastatin 20 mg oral tablet 20 mg = 1 tab, Oral, Daily, # 90 tab, 2 Refill(s), Pharmacy: [facility] Start Date: 06/16/23 Status: Ordered Combivent Respimat CFC free 20 mcg-100 mcg/inh inhalation aerosol 1 puffs, Inhale, As Directed, # 4 g, 0 Refill(s) Start Date: 03/19/23 Status: Ordered DULoxetine 30 mg oral delayed release capsule 30 mg = 1 cap, Oral, BID, # 180 cap, 3 Refill(s), Pharmacy: [facility] Start Date: 07/11/23 Stop Date: 07/05/24 Status: Ordered Eliquis 5 mg oral tablet 5 mg = 1 tab, Oral, BID, # 180 tab, 3 Refill(s), Pharmacy: [facility] Start Date: 07/11/23 Stop Date: 07/05/24 Status: Ordered ergocalciferol 1.25 mg (50,000 intl units) oral capsule 50,000 IntlUnit = 1 cap, Oral, every 2 wk, as directed, # 7 cap, 3 Refill(s), Pharmacy: [facility] Start Date: 07/22/22 Stop Date: 07/17/23 Status: Ordered febuxostat 40 mg oral tablet 1 tab, Oral, Daily, # 90 tab, 3 Refill(s), Pharmacy: [facility] Start Date: 07/11/23 Stop Date: 07/05/24 [...] wean., # 168 tab, 0 Refill(s), Pharmacy: [facility] Start Date: 08/24/23 Stop Date: 09/21/23 Status: Ordered HYDROcodone-acetaminophen 10 mg-325 mg oral tablet 1 tab, Oral, every 4 hr, PRN as needed for pain, Take 1 tablet every 4-6 hours as needed for severepain. Recommendations to decrease to 5 tablets daily for upcoming wean., # 168 tab, 0 Refill(s), Pharmacy: [facility] Start Date: 07/27/23 Stop Date: 08/24/23 Status: Ordered hydrOXYzine hydrochloride 50 mg oral tablet 30 EA, TAKE ONE TABLET BY MOUTH EVERY DAY WITH EVENING MEAL, 0 Refill(s) Start Date: 03/19/23 Status: Ordered ketoconazole 2% topical cream 1 ignacio, Topical, BID, to affected area. Anti-fungal for yeast infection., # 60 g, 0 Refill(s), Pharmacy: [facility] Start Date: 08/22/22 Stop Date: 09/19/22 Status: Ordered losartan 50 mg oral tablet 50 mg = 1 tab, Oral, Daily, # 90 tab, 2 Refill(s), Pharmacy: [facility] Start Date: 03/19/23 Status: Ordered metoprolol succinate 25 mg oral capsule, extended release 25 mg = 1 cap, Oral, Daily, Take 25mg and 50mg for total fof 75 mg daily, # 90 cap, 0 Refill(s), Pharmacy: [facility] Start Date: 07/11/23 Status: Ordered Metoprolol Succinate ER 50 mg oral tablet, extended release 50 mg = 1 tab, Oral, Daily, # 90 tab, 3 Refill(s), Pharmacy: [facility] Start Date: 07/22/22 Stop Date: 07/17/23 Status: Ordered Narcan 4 mg/0.1 mL nasal spray 1 sprays, Nasal, Once, PRN other (see comment), may repeat every 2 to 3 minutes until patient responds, # 2 EA, 0 Refill(s), Pharmacy: [facility] Start Date: 09/25/22 Status: Ordered sildenafil 100 mg oral tablet 1 tab, Oral, Daily, # 10 tab, 11 Refill(s), Pharmacy: [facility] Start Date: 07/22/22 Stop Date: 07/17/23 Status: Ordered traZODone 50 mg oral tablet 1 tab, Oral, every night at bedtime, # 90 tab, 3 Refill(s), Pharmacy: [facility] Start Date: 03/19/23 Stop Date: 03/13/24 Status: Ordered triamcinolone 0.025% topical cream 1 ignacio, Topical, BID, PRN itching/rash, apply a thin film to affected area Steroid cream for itchingand redness., # 60 g, 0 Refill(s), Pharmacy: [facility] Start Date: 08/22/22 Stop Date: 09/05/22 Status: Ordered triamcinolone 0.5% topical ointment 1 ignacio, Topical, BID, # 430 g, 0 Refill(s), Pharmacy: [facility] Start Date: 12/25/22 Stop Date: 01/08/23 Status: Ordered zolpidem 10 mg oral tablet 10 mg = 1 tab, Oral, every night at bedtime, swallow whole do not crush or chew, # 28 tab, 3 Refill(s), Pharmacy: [facility] Start Date: 03/25/23 Stop Date: 07/15/23 [...] Range]: 1 Peripheral Pulse Rate [60-100 bpm] 97 bp m (07/23/23 9:23 AM) Blood Pressure [90-140/60-90 mmHg] 147/8 8mmHg *HI* (07/23/23 9:23 AM) Weight 113.4 kg (07/23/23 9:23 AM) Weight Measured (lbs) 250.004 lb (07/23/23 9:23 AM) Height 180.34 cm (07/23/23 9:23 AM) Height/Length Measured (inches) 71 inch (07/23/23 9:23 AM) BSA Measured 2.38 m2 (07/23/23 9:23 AM) Body Mass Index 34.87 kg/m2 (07/23/23 9:23 AM) Social History Social History Type Response Tobacco Never tobacco user T obacco Use:. Sex Male Polysomnography (sleep) study * Jonas Bailey: PERFORM, MODIFY Event Display: Sleep Study Authored Date: [id number] BRENDA ESTEBAN :1960 Age:63 years Sex:Male Visit Date:07/23/2023 Primary Care Physician: Astrid Mcdonough MD ? DIAGNOSTIC POLYSOMNOGRAM STUDY ?? Name: Brenda Esteban Attending: Astrid Meyers MD : 1960 Location: [facility] MR#: [id number] Date of Study: 06/30/2023 Report Date: 07/22/2023 Recording Tech: Kyra Fernandez ? INDICATION:? 63 year male presents with snoring, frequent nocturnal awakenings,??nonrestorative sleep, waking up??gasping for air, restless sleep,??changes to mood. ??Patient has ??diagnosis of TYRON from 2011, tried CPAP and oral appliance, but not currently on any treatment. Medical history includes atrial fibrillation, HTN, rheumatoid arthritis, chronic insomnia,??obesity, hx of Lyme disease,HLD, chronic pain on Hydrocodone,??asthma. ESS 05/04. [place] questionnaire positive in 3 out of 3 categories. ??Medication: Duloxetine 30mg, Zolpidem 10mg and Trazodone 50mg. ??It was not documented whether patient took any Hydrocodone 10mg tabs on day of sleep study. Ht: 5' 10. ??Wt.: 253.2 lbs. ??BMI = 36.33 kg/m2.? FINDINGS: Lights Out Time: ??10:03:17 PM Lights On Time: ??5:58:47 AM BP 120/76 ??HR 80 ??Spo2 95 Sleep Architecture ?? Stages ?? TRT: 476.00 min. N1: 37% (107.5 min.) TST: 290.0 min. N2: 57% (164.5 min.) Sleep Efficiency: 61% N3: 0% (0.0 min.) Sleep Onset: 13.0 min. REM: 6% (18.0 min.) REM Latency: 343.0 min. ? Wake After Sleep Onset: 172.5 min. ? Respiratory Data: ? a.??AHI: 3.5/hr. RDI: 8.1/hr.??(0??Centrals,??0??Obstructive,??0??Mixed,??17??Hypopneas,??22 RERAs)? ?This is a sum of a hypopnea index of??3.5/hr., obstructive apnea index of??0.0/hr., central apnea index of??0.0/hr.??and RERA index of??5/hr.??Intermittent snoring was heard throughout the night b.??REM Related AHI:??0.0/hr. ??RDI: 0.0/hr.??REM Supine AHI: N/A/hr. . c.??Supine AHI: 7/hr. ??Right Lateral AHI: ??1/hr. ??Left Lateral AHI: ??4/hr. ??Prone AHI: ??N/A/hr d.??Hypopnea scoring by the 4% desaturation criteria. e.??SaO2 Emre: ??83% on room air. 161.0 minutes were spent on oxygen saturation less than??or equal to??88%. f.??Mean oxygen saturation: ??89% on room air. g.??Arousal index:??11/hr. (55??arousals). ?? Movement Data: ? a.??PLM index:??0.8/hr. (4??limb movements) b.??PLM arousal index:??0.2/hr. (1??limb movements) ?? Other: a.?? EKG:??Atrial fibrillation.??PVCs were noted.?Heart rate minimum:??61/min. ??Maximum:??107/min. ??Mean:??83/min. b.?No significant arrhythmia. c.?No Isaac-Singer respirations. d.?No parasomnias. e.?? EEG: ??No obvious abnormalities noted on this limited EEG montage. ? IMPRESSION: 1.??Mild Obstructive Sleep Apnea by RDI [...] fibrillation seen on EKG, consistent with history. ?? RECOMMENDATIONS: 1.??Given significant hypoxemia along with TYRON, the first line therapy is CPAP therapy with mask ofchoice, heated humidification, and ramp and return to the Sleep Lab for formal titration study to monitor that his hypoxemia has resolved. 2.??Alternative treatment options include: enhanced efforts for weight loss, evaluation for ENT surgery or use of oral appliance. However, patient should be monitored for hypoxemia and considered forsupplemental O2 if appropriate. 3.??Periodic limb movement should be re-evaluated after sleep apnea is fully treated. 4.??Patient will be contacted for follow-up with Arely Nuñez NP on 07/23/23 in Sleep Clinic to discuss study results and appropriate treatment options. ?? Thank you for the courtesy of this referral. ? Report Date: 07/22/2023 Aimee Schulz MD ? Name: Brenda Esteban Attending: Astrid Meyers MD : 1960 Location: [facility] MR#: [id number] Date of Study: 06/30/2023 Report Date: 07/22/2023 Recording Tech: Kyra Fernandez ? POLYSOMNOGRAPHY REPORT ?? Sleep Times ?? Sleep Data ?? Recording Start: 9:58:47 PM Total Sleep Time (TST): 290.0 min. (4.8 hrs.) Lights Out: 10:03:17 PM Wake Before Sleep: 13.0 min. Sleep Onset: 13.0 min. Wake During Sleep: 168.0 min. Lights On: 5:58:47 AM Wake After Sleep: 4.5 min. Recording End: 5:59:32 AM Total Wake Time: 186.0 min. Recording Duration: 480.5 min. (8.0 hrs.) REM Time: 18.0 min. (0.3 hrs.) Total Recording Time (TRT = Lights Out to Lights On): 476.00 min. (7.9 hrs.) NREM Time:?? 272.0 min. (4.5 hrs.) Sleep Period Time (SPT): 458.0 min. (7.6 hrs.) Slow Wave Sleep Time: 0.0 min. ? REM Periods: 1 ? Sleep and REM Latency ? Sleep Onset: 13.0 min. Sleep Efficiency 1 61% (100xTST/TIB) REM Onset (from sleep onset): 343.0 min Sleep Efficiency 2 63% (100xTST/SPT) ? Latency from Lights Out ?? Arousals and Awakenings ?? Latency to N1 13.0 min. Total Arousals 55 Latency to N2 71.0 min. Arousal Index 11 Latency to N3 NONE min. Total Awakenings 58 ? Awakening Index 12 ? Sleep Stages Time (min) % TST % TRT % SPT N1 107.5 min. 37 % 23 % 23 % N2 164.5 min. 57 % 35 % 36 % N3 0.0 min. 0 % 0 % 0 % REM 18.0 min. 6 % 4 % 4 % Wake 186.0 min. ?? 39 % 37 % ? Body Position Position Time REM NREM Apnea/ AHI Mean SpO2 % Snore (min.) (min.) (min.) (min.) Hypopnea ?? Sleep Index ? C / O / M / H? Supine 183.4 0.0 61.4 0 / 0 / 0 / 7 7 88 % 103 Left 150.4 0.0 106.1 0 / 0 / 0 / 7 4 89 % 45 Prone 0.0 0.0 0.0 N/A / N/A / N/A / N/A N/A N/A % N/A Right 140.4 18.0 104.5 0 / 0 / 0 / 3 1 90 % 99 Upright 0.0 0.0 0.0 N/A / N/A / N/A / N/A N/A N/A % N/A ? Arousal Data ? REM NREM Total Arousals with Respiratory Events: 0 23 23 Arousals with LM Events: 0 1 1 Arousals with Snoring Events: 0 3 3 Non-Specific Arousals: 0 28 28 Total Arousals: 0 55 55 Arousal Index: 0 12 11 ? Respiratory Data ?? AHI NREM: 3.8 RDI NREM: 8.6 RERA Events NREM: 22 Apnea + Hypopnea Events NREM: 17 AHI REM: 0.0 RDI REM: 0.0 RERA Events REM: 0 Apnea + Hypopnea Events REM: 0 AHI TST: 3.5 RDI TST: 8.1 RERA Events TST: 22 Apnea + Hypopnea Events TST: 17 ? NREM Central Apnea Obstructive Apnea Mixed Apnea Hypopnea Central Hypopnea RERA Occurrences 0 0 0 17 0 22 Max. Duration (sec.) 0.0 0.0 0.0 40.3 0.0 31.0 Mean Duration (sec.) 0.0 0.0 0.0 22.4 0.0 18.8 Total Duration (min.) 0.0 0.0 0.0 6.3 0.0 6.9 NREM Index 0.0 0.0 0.0 3.8 0 5 ? REM Central Apnea Obstructive Apnea Mixed Apnea Hypopnea Central Hypopnea RERA Occurrences 0 0 0 0 0 0 Max. Duration (sec.) 0.0 0.0 0.0 0.0 0.0 0.0 Mean Duration (sec.) 0.0 0.0 0.0 0.0 0.0 0.0 Total Duration (min.) 0.0 0.0 0.0 0.0 0.0 0.0 REM Index 0.0 0.0 0.0 0.0 0 0 ? Total Central Apnea Obstructive Apnea Mixed Apnea Hypopnea Central Hypopnea RERA Occurrences 0 0 0 17 0 22 Max. Duration (sec.) 0.0 0.0 0.0 40.3 0.0 31.0 Mean Duration (sec.) 0.0 0.0 0.0 22.4 0.0 18.8 Total Duration (min.) 0.0 0.0 0.0 6.3 0.0 6.9 Total Index 0.0 0.0 0.0 3.5 0 5 ? Oximetry Data ? NREM REM TST Wake Mean SpO2 %: 89 % 91 % 89 % 89 % Min SpO2 %: 83 % 89 % 83 % 65 % Max SpO2%: 94 % 92 % 94 % 98 % ? Total REM NREM Awake <50% 0.0 min. 0.0 min. 0.0 min. 0.0 min. 51 - 60% 0.0 min. 0.0 min. 0.0 min. 0.0 min. 61 - 70% 0.0 min. 0.0 min. 0.0 min. 0.0 min. 71 - 80% 0.0 min. 0.0 min. 0.0 min. 0.0 min. 81 - 90% 366.3 min. 7.9 min. 212.0 min. 146.4 min. 91 - 100% 105.4 min. 10.1 min. 60.0 min. 35.3 min. Average 89 91 89 89 Minimum SpO2 65 89 83 65 Desaturation Event Index 2.1 0.0 3.8 0.0 # Desat. Events </= 88% 16 N/A 16 0 Time(%) with Saturation </= 88% 34.1 0.0 15.5 18.7 Time(min.) with Saturation </= 88% 161.0 0.0 73.0 88.0 ? Snoring Data ? REM NREM Total Total Snore Events with Arousals: 0 3 3 Total Snore Occurrences: 6 381 387 Total Snoring Time (min): 0.1 6.9 7.0 Snoring Index: 20.0 84.0 80.1 ? Cardiac Data ? NREM REM TRT WAKE Mean Heart Rate (bpm): 83 85 83 82 Low Heart Rate (bpm): 61 65 61 59 High Heart Rate (bpm): 107 102 107 110 ? Periodic Limb Movement Data ?? Rhythmic LM Total LM Total LM w/ Arousals LM w/Arousals Movements Count Index Count Index Wake: 1 0.3 - - Stage N1: 4 2.2 1 0.6 Stage N2: 0 0.0 0 0.0 Stage N3: N/A N/A N/A N/A REM: 0 0.0 0 0.0 Total Sleep: 4 0.8 1 0.2 ? PLM Series Count: 1 ? Mean PLMs per Series: 5 ? Electronically Signed on 07/22/23 08:58 AM Jonas Bailey Physician Outpatient Note * Arely Hanley MUSICAL STRING MAKER: PERFORM Event Display: Office Clinic Note Physician Authored Date: [id number] BRENDA ESTEBAN :1960 Age:63 years Sex:Male Visit Date:07/23/2023 Primary Care Physician: Astrid Mcdonough MD Chief Complaint follow up psg results History of Present Illness 63 years??male??here for sleep study results ?? TODAY: Pt states his sleep study night was a typical night's sleep for him. He took Hydrocodone the morning of his PSG, doesn't take it at night. Still taking Ambien and Trazodone at bedtime. ?? He used cpap 10 years ago and felt like he slept worse with it. He sleeps on his side and goes sideto side, always had issues with the mask coming off his face and being comfortable. ?? He feels tired and run down all the time. Review of Systems A 10-point REVIEW OF SYSTEM was obtained and reviewed, includes CONSTITUTIONAL, EYES, NOSE, THROAT,RESPIRATORY, HEART, GASTROINTESTINAL, UROLOGIC, MUSCULOSKELETAL, PSYCHIATRY, SKIN systems. Pertinent symptoms are discussed in history, otherwise negative. Physical Exam Vitals & Measurements HR:??97??(Peripheral)?? BP:??147/88?? SpO2:??97%?? HT:??180.34??cm?? WT:??113.4??kg?? BMI:??34.87?? BSA:??2.38?? General:??well appearing, appearing stated age, no acute distress,??obese??build HEENT: atraumatic skull, anicteric RESPIRATORY: quiet respiration, able to speak in full sentences without dyspnea, no accessory muscle use SKIN: no facial skin rash, no facial skin lesions PSYCHIATRIC: well groomed, fluent speech, good insight, linear thought process, good eye contact,balanced??affect NEUROLOGIC: alert, oriented, symmetric facial expression Clinic Assessment/Plan 1.??Obstructive sleep apnea??G47.33 Brenda Esteban is a pleasant 63 year old male here for sleep study results. Diagnostic PSG performed on the night of 06/30/23 showed ??Mild Obstructive Sleep Apnea by RDI associated with significant nocturnal hypoxemia and sleep fragmentation. Overall RDI: 8.1/hr; REM AHI: 0.0/hr; Supine AHI: 7/hr; Right Lateral AHI:1 /hr; Left Lateral AHI: 4/hr;??Atrial fibrillation seen on EKG, consistent with history. Confirmed with the patient that he did NOT take hydrocodone on the night of his PSG, only takesit in the AM. ?? We reviewed sleep study results in detail including apnea hypopnea index, positional data and oxygen data. We reviewed discussion of Obstructive Sleep Apnea, including pathophysiology, associated full roll inspector cardiovascular, neurocognitive and overall health effects, and importance of treatment. Treatment options discussed. He has used a CPAP in the past about 10 yrs ago??and felt he slept worse with it. He is a side sleeper and struggled with keeping the mask on his face. Extensively reviewed process of starting treatment and commonly encountered problems and ways to find support and troubleshooting problems. I discussed different mask options and the importance of finding the mask that will work for??him??within the first 30 days. I discussed how to adjust humidityfor dryness/congestion and that the goal will be to use nightly for??his??total sleep time. I covered insurance compliance requirements and the [facility]'s mask exchange policy.?? He??will have a titration study for fine tuning of therapy and to ensure adequate oxygenation on CPAP therapy per PSG recommendations once he has acclimated to CPAP again.? I will see??himback between 31-90 days after starting CPAP and??he??is encouraged to call me sooner if??he??is having any difficulties tolerating CPAP. ?? Avoid drowsy driving and drowsy driving precautions as applicable. Weight loss encouraged. ?? 2.??Nocturnal hypoxemia??G47.34 PSG showed significant nocturnal hypoxemia. Mean SpO2: 89% and Emre SpO2: 83% on Room Air; 161.0 minutes spent with SpO2 less than or equal to 88% on Room Air. Pt smokes marijuana daily, no cigarettes. He has seen a gravity prospecting operator in the past but not in a longtime. He does have a hx of asthma and uses inhalers PRN but has not needed to use it lately. ?? I will order his titration PSG once he has acclimated to CPAP and wearing a mask at night. ?? 3.??Psychophysiologic insomnia??F51.04 Pt still taking Ambien 10mg and Trazodone 50mg at bedtime for sleep with marijuana in conjunction. Re-eval after he has started CPAP again. ?? I provided greater than??40??minutes in the care of this patient, more than half the time was spentin [id number] counseling. ?with comorbidities of Afib, chronic back pain, HTN, rheumatoid arthritis, chronic insomnia (ambien 10mg, trazodone 50mg), obesity, hx of Lyme disease, HLD, chronic pain on Hydrocodone, asthma ? Clinical Data Reviewed: [place] Sleepiness Scale: 07/05 ? Sleep Clinical Timeline:?? 11/03/2011: Diagnostic PSG. [...] restless sleep, changes to mood, ESS 7/24, [place] Questionnaire 3 out of 3. Patient is [...] now being followed by Anat LEDESMA at [facility] Card[facility]. ?? Today's Assessment and Plan: See above [...] Degeneration of cervical intervertebral disc Unchanged metoprolol (metoprolol succinate 25 mg oral capsule, extended release) 1 Capsules Oral (given by mouth) Every day Take 25mg and 50mg for total fof 75 mg daily ?? Unchanged metoprolol (Metoprolol Succinate ER 50 mg oral tablet, extended release) 1 tab Oral (given by mouth) Every day Duration: 90 Days Unchanged naloxone (Narcan 4 mg/ 0.1 mL nasal spray) 1 Sprays Nasal (into the nose) Once as needed for other (see comment) Respiratory suppression may repeat every 2 to 3 minutes until patient responds ?? Unchanged Other Prescription ([facility] - Misc Prescription) 90 EA, TAKE [...] (Tdap) adult/adol 06/21/2012 Recorded Electronically Signed on 07/23/23 10:15 AM Arely Hanley MUSICAL STRING MAKER Electronically Signed on 07/23/23 10:11 AM Seble Elaine Patient Care team information Care Team Personnel Name: Astrid Mcdonough MD Position: Physician Member Role: Primary Care Physician Address: Address: [address] [place] [id number] [place] Care Team Related Persons Name: VADIM COSTA
--- OUTSIDE RECORDS SUMMARY | 2024-08-29 14:10 | XMS_ITS | Continuity of Care Document ---
Author Organization [facility] Address [address] [place] [address] Care Team Providers Care Shirt Creaser Name Role Phone Astrid Mcdonough Primary Care Physician [facility] Date[facility] 10/28/23 - 10/28/[address] [address] Encounter Diagnosis Chest pain(Discharge Diagnosis) - 10/28/23 Dyspnea(Discharge Diagnosis) - 10/28/23 Discharge Disposition: Home or Self Care Attending Physician: Anat Cross NP Admitting Physician: Anat Cross NP Referring Physician: Anat Cross CARE TRAINER Allergies, Adverse Reactions, Alerts No Known Medication [...] by CHANORN. 2Result Comment: Patient Declined Medications [facility] [place] [facility] Prescription 90 EA, TAKE ONE TABLET BY MOUTH EVERY DAY, 0 Refill(s) Start Date: 03/19/23 Status: Ordered atorvastatin 20 mg oral tablet 20 mg = 1 tab, Oral, Daily, # 90 tab, 2 Refill(s), Pharmacy: [facility] Start Date: 06/16/23 Status: Ordered Combivent Respimat CFC free 20 mcg-100 mcg/inh inhalation aerosol 1 puffs, Inhale, As Directed, # 4 g, 0 Refill(s) Start Date: 03/19/23 Status: Ordered DULoxetine 30 mg oral delayed release capsule 30 mg = 1 cap, Oral, BID, # 180 cap, 3 Refill(s), Pharmacy: [facility] Start Date: 07/11/23 Stop Date: 07/05/24 Status: Ordered Eliquis 5 mg oral tablet 5 mg = 1 tab, Oral, BID, # 180 tab, 3 Refill(s), Pharmacy: [facility], 180.34, cm, 07/23/23 9:23:00 EDT, Height, 117.93, kg, 09/08/23 10:25:00 EST, Weight Dosing Start Date: 10/22/23 Stop Date: 10/16/24 Status: Ordered ergocalciferol 1.25 mg (50,000 intl units) oral capsule 50,000 IntlUnit = 1 cap, Oral, every 2 wk, as directed, # 7 cap, 3 Refill(s), Pharmacy: [facility] Start Date: 07/22/22 Stop Date: 07/17/23 Status: Ordered febuxostat 40 mg oral tablet 1 tab, Oral, Daily, # 90 tab, 3 Refill(s), Pharmacy: [facility], 180.34, cm, 07/23/23 9:23:00 EDT, Height, [...] wean., # 168 tab, 0 Refill(s), Pharmacy: [facility], 180.34, cm, 07/23/23 9:23:00 EDT, Height, [...] wean., # 168 tab, 0 Refill(s), Pharmacy: [facility], 180.34, cm, 07/23/23 9:23:00 EDT, Height, [...] wean., # 168 tab, 0 Refill(s), Pharmacy: [facility], 180.34, cm, 07/23/23 9:23:00 EDT, Height, [...] infection., # 60 g, 0 Refill(s), Pharmacy: [facility] Start Date: 08/22/22 Stop Date: 09/19/22 Status: Ordered losartan 50 mg oral tablet 50 mg = 1 tab, Oral, Daily, # 90 tab, 2 Refill(s), Pharmacy: [facility] Start Date: 03/19/23 Status: Ordered Metoprolol [...] # 2 EA, 0 Refill(s), Pharmacy: [facility] Start Date: 09/25/22 Status: Ordered sildenafil 100 mg oral tablet 1 tab, Oral, Daily, # 10 tab, 3 Refill(s), Pharmacy: [facility], 180.34, cm, 07/23/23 9:23:00 EDT, Height Start Date: 08/26/23 Stop Date: 12/24/23 Status: Ordered traZODone 50 mg oral tablet 1 tab, Oral, every night at bedtime, # 90 tab, 3 Refill(s), Pharmacy: [facility] Start Date: 03/19/23 Stop Date: 03/13/24 Status: Ordered triamcinolone 0.025% topical cream 1 ignacio, Topical, BID, PRN itching/rash, apply a thin film to affected area Steroid cream for itchingand redness., # 60 g, 0 Refill(s), Pharmacy: [facility] Start Date: 08/22/22 Stop Date: 09/05/22 Status: Ordered zolpidem 10 mg oral tablet 10 mg = 1 tab, Oral, every night at bedtime, swallow whole do not crush or chew, # 28 tab, 1 Refill(s), Pharmacy: [facility], 180.34, cm, 07/23/23 9:23:00 EDT, [...] Physician Member Role: Informed Provider Address: Address: [address] [place] [address] [place] [address] Care Team Related Persons Name: VADIM COSTA
--- OUTSIDE RECORDS SUMMARY | 2024-08-29 14:10 | XMS_ITS | Continuity of Care Document ---
Author Organization [facility] Address [address] [place] [address] Care Team Providers Care Cyanide Pot Hardener Name Role Phone Astrid Grier Primary Care Physician Encounter [facility], [facility]ME Date(s): 04/20/23 - 04/20/[address] [phone] Encounter Diagnosis Atrial fibrillation(Discharge Diagnosis) - 04/20/23 Discharge Disposition: Home or Self Care Attending [...] BID, # 180 cap, 3 Refill(s), Pharmacy: [id number] Start Date: 07/22/22 Stop Date: 07/17/23 Status: Ordered Eliquis 5 mg oral tablet 5 mg = 1 tab, Oral, BID, # 180 tab, 3 Refill(s), Pharmacy: [facility] Start Date: 07/22/22 Stop Date: 07/17/23 Status: Ordered ergocalciferol 1.25 mg (50,000 intl units) oral capsule 50,000 IntlUnit = 1 cap, Oral, every 2 wk, as directed, # 7 cap, 3 Refill(s), Pharmacy: [facility] Start Date: 07/22/22 Stop Date: 07/17/23 Status: Ordered febuxostat 40 mg oral tablet 1 tab, Oral, Daily, # 90 tab, 3 Refill(s), Pharmacy: [facility] Start Date: 07/22/22 Stop Date: 07/17/23 [...] wean., # 168 tab, 0 Refill(s), Pharmacy: [facility] Start Date: 05/20/23 Stop Date: 06/17/23 Status: Ordered HYDROcodone-acetaminophen 10 mg-325 mg oral tablet 1 tab, Oral, every 4 hr, PRN as needed for pain, Take 1 tablet every 4-6 hours as needed for severepain. Recommendations to decrease to 5 tablets daily for upcoming wean., # 168 tab, 0 Refill(s), Pharmacy: [facility] Start Date: 04/22/23 Stop Date: 05/20/23 Status: Ordered hydrOXYzine hydrochloride 50 mg oral tablet 30 EA, TAKE ONE TABLET BY MOUTH EVERY DAY WITH EVENING MEAL, 0 Refill(s) Start Date: 03/19/23 Status: Ordered ketoconazole 2% topical cream 1 ignacio, Topical, BID, to affected area. Anti-fungal for yeast infection., # 60 g, 0 Refill(s), Pharmacy: [facility] Start Date: 08/22/22 Stop Date: 09/19/22 Status: Ordered losartan 50 mg oral tablet 50 mg = 1 tab, Oral, Daily, # 90 tab, 2 Refill(s), Pharmacy: [facility] Start Date: 03/19/23 Status: Ordered Metoprolol Succinate ER 50 mg oral tablet, extended release 50 mg = 1 tab, Oral, Daily, # 90 tab, 3 Refill(s), Pharmacy: [facility] Start Date: 07/22/22 Stop Date: 07/17/23 Status: Ordered Narcan 4 mg/0.1 mL nasal spray 1 sprays, Nasal, Once, PRN other (see comment), may repeat every 2 to 3 minutes until patient responds, # 2 EA, 0 Refill(s), Pharmacy: [facility] Start Date: 09/25/22 Status: Ordered sildenafil 100 mg oral tablet 1 tab, Oral, Daily, # 10 tab, 11 Refill(s), Pharmacy: [facility] Start Date: 07/22/22 Stop Date: 07/17/23 Status: Ordered traZODone 50 mg oral tablet 1 tab, Oral, every night at bedtime, # 90 tab, 3 Refill(s), Pharmacy: [facility] Start Date: 03/19/23 Stop Date: 03/13/24 Status: Ordered triamcinolone 0.025% topical cream 1 ignacio, Topical, BID, PRN itching/rash, apply a thin film to affected area Steroid cream for itchingand redness., # 60 g, 0 Refill(s), Pharmacy: [facility] Start Date: 08/22/22 Stop Date: 09/05/22 Status: Ordered triamcinolone 0.5% topical ointment 1 ignacio, Topical, BID, # 430 g, 0 Refill(s), Pharmacy: [facility] Start Date: 12/25/22 Stop Date: 01/08/23 Status: Ordered zolpidem 10 mg oral tablet 10 mg = 1 tab, Oral, every day at bedtime, PRN as needed for insomnia, # 28 tab, 0 Refill(s), Pharmacy: [facility] Start Date: 12/25/22 Status: Ordered zolpidem 10 mg oral tablet 10 mg = 1 tab, Oral, every day at bedtime, PRN as needed for insomnia, # 28 tab, 0 Refill(s), Pharmacy: [facility] Start Date: 12/25/22 Status: Ordered zolpidem 10 mg oral tablet 10 mg = 1 tab, Oral, every night at bedtime, swallow whole do not crush or chew, # 28 tab, 3 Refill(s), Pharmacy: [facility] Start Date: 03/25/23 Stop Date: 07/15/23 [...] joint Confirmed 11/14/19 Active Psychophysiologic insomnia Confirmed 10/1/18 Active Sciatica Confirmed Active Tinea corporis Confirmed [...] tobacco user T obacco Use:. Sex Male Cardiology * Antwon Mane: PERFORM Event Display: Event Monitor Authored Date: [id number] BRENDA JAVED [id number] Patient placed on Zio Event Monitor 14 dayson 04/20/2023. Electronically Signed on 04/20/23 10:30 AM Antwon Mane Patient Care team information Care Team Personnel Name: Astrid Grier MD Position: Physician Member Role: Primary Care Physician Address: Address: [address] [place] [phone] [place] Care Team Related Persons Name: VADIM COSTA Address: Home
--- OUTSIDE RECORDS SUMMARY | 2024-08-29 14:11 | XMS_ITS | Encounter Summary ---
Author Organization [facility] Address [address] [place] [address] Care Team Providers Care Financial Operations Clerk Name Role Phone Unknown, Provider Primary Care Provider Unava ilable Encounter Details Date Type Department Care Team (Late st Contact Info) Description 08/08/2024 Lab Requisition [facility] Pathology & Laboratory Medicine - [facility] [address], [place] [id number] Outr Resulting Lab, Provider Social History Tobacco Use Types Packs/Day Years Used Date Smoking Tobacco: Never Assessed Sex and Gender Information Value Date Recorded Sex Assigned at Not on file Legal Sex Male 18:46 EST Gender Identity Not on file Sexual Orientation Not on file documented as of this encounter Plan of Treatment Not on file documented as of this encounter Procedures Procedure Name Priority Date/Time Associated Diagnosis Comments OPIATES AND METABOLITES CONFIRMATION PANEL Routine 08/08/2024 11:28 EDT documented in this encounter Results * (ABNORMAL) OPIOIDS AND METABOLITES CONFIRMATION PANEL (08/08/2024 11:28 EDT) Codeine Confirmation Negative <100 ng/mL 08/10/2024 8:32 EDT [facility] Morphine Confirmation Negative <100 ng/mL 08/10/2024 8:32 EDT [facility] Hydrocodone Confirmation >1000(A) <50 ng/mL 08/10/2024 8:32 EDT [facility] Hydromorphone Confirmation 297(A) <50 ng/mL 08/10/2024 8:32 EDT [facility] Oxycodone Confirmation Negative <50 ng/mL 08/10/2024 8:32 EDT [facility] Oxymorphone Confirmation Negative <50 ng/mL 08/10/2024 8:32 EDT [facility] Dihydrocodeine Confirmation >1000(A) <50 ng/mL 08/10/2024 8:32 EDT [facility] Norhydrocodone Confirmation >1000(A) <50 ng/mL 08/10/2024 8:32 EDT [facility] Norhydromorphone Confirmation 61(A) <50 ng/mL 08/10/2024 8:32 EDT [facility] Noroxycodone Confirmation Negative <50 ng/mL 08/10/2024 8:32 EDT [facility] Noroxymorphone Confirmation Negative <50 ng/mL 08/10/2024 8:32 EDT [facility] Urine URINE / Unknown 08/08/2024 1 1:28 EDT 08/08/2024 22:07 EDT Narrative [facility] - 08/10/2024 8:32 EDT Testing performed by: [email or web address] [address] [place] [address], [facility] [address] [address] Wire Loop Machine Operator: Rah Aleman MD; CLIA # [id number] us Provider Outr Resulting Lab GEN LAB UNIT COLLECT ORDERABLES Final Result [facility] [address] [place] [address], [facility] [address] [place] [address], [facility] [phone] documented in this encounter Visit Diagnoses Not on filedocumented in this encounter Care Teams Financial Operations Clerk Relationship Specialty Start Date End Date Unknown, Provider, PCP - General 11/19/15 documented as of this encounter
--- OUTSIDE RECORDS SUMMARY | 2024-08-29 14:11 | XMS_ITS | Encounter Summary ---
Author Organization [facility] Address [facility] [place] [address] Care Team Providers Care Tire Care Manager Name Role Phone Astrid Grier MD Primary Care Provider Encounter Details Date Type Department Care Team (Late st Contact Info) Description 03/02/2024 Orders Only Cardiology at [address] [phone] Kareem Schuler, [place] [facility] [place] [address] Chronic atrial fibrillation Social History Tobacco Use Types Packs/Day Years Used Date Smoking Tobacco: Never Smokeless Tobacco: Never Alcohol Use Standard Drinks/Week Comments Yes 23 (1 standard drink = 0.6 oz pu re alcohol) 2-3 drinks daily [facility] Inpatient Questions Answer Date Recorded Does Anyone Try to Keep You From Having Contact with Others or Doing Things Outside Your Home? unable to answer (comment required) 11/20/2023 Feels Threatened by Someone unable to an swer (comment required) 11/20/2023 Feels Unsafe at Home or Work/School unab le to answer (comment required) 11/20/2023 Physical Signs of Abuse Present Not on file 11/20/2023 Sex and Gender Information Value Date Recorded Sex Assigned at Not on file Gender Identity Not on file Sexual Orientation Not on file documented as of this encounter Plan of Treatment Scheduled Orders Name Type Priority Associated Diagnoses Orde r Schedule EKG 12 Lead ECG Routine Chronic atrial fibrillation Expected: 03/09/2024, Expires: 09/08/2024 documented as of this encounter Results * Magnesium (03/09/2024 1:38 PM EDT) Magnesium 0.97 0.69 - 1.07 mmol/L [facility] Blood 03/09/2024 1:38 PM EDT 03/09/2024 2:01 PM EDT Narrative Resulting Agency Comment Spec In Lab Herbie Frankel MD CHEMISTRY ORDERABLES [facility] [place] [address] * (ABNORMAL) Basic Metabolic Panel (non-fasting) (03/09/2024 1:38 PM EDT) Glucose 107 65 - 199 mg/dL [facility] Comment:Diabetes: >=200 mg/d L plus symptoms Blood Urea Nitrogen 13 10 - 20 mg/dL [facility] Creatinine 1.48 0.80 - 1.50 mg/dL [facility] Sodium 142 135 - 145 mmol/L [facility] Potassium 4.5 3.5 - 5.0 mmol/L [facility] Comment: Please note: ??Patients with WBC >100,000 may have falsely elevated Potassium levels. ??For accurate Potassium quantification in these patients send serum separator tube (gold top) for subsequent determinations. ??Contact the Clinical Chemistry Laboratory if there are any questions. Chloride 104 98 - 107 mmol/L [facility] Carbon Dioxide 28 22 - 31 mmol/L [facility] Anion Gap 10 5 - 15 mmol/L [facility] Calcium 9.4 8.5 - 10.5 mg/dL [facility] Est Glomerular Filtration Rate 53(L) >=60 mL/min/1. 73 m?? [facility] Comment: This patient's estimated GFR was calculated using the 2020 CKD-EPI equation. The estimated GFR can vary from the measured GFR by up to 30% in the absence of rapidly changing kidney function. Assessment of the estimated GFR is not appropriate when creatinine concentrations are rapidly changing. For clinical situations in which a more precise estimate of GFR is necessary, consider alternative methods of GFR estimation such as a 24-hour urine creatinine clearance. Assignment of CKD stage 1-5 for patients with an eGFR near the transition point between stages may be based on clinical assessment of muscle mass and symptoms in addition to eGFR. Blood 03/09/2024 1:38 PM EDT 03/09/2024 2:01 PM EDT Narrative Resulting Agency Comment Spec In Lab Herbie Frankel MD CHEMISTRY ORDERABLES [facility] [place] [place] [address] documented in this encounter Visit Diagnoses Diagnosis Chronic atrial fibrillation Atrial fibrillation documented in this encounter Care Teams Tire Care Manager Relationship Specialty Start Date End Date Astrid Grier MD [address] [place] [address] PCP - General Family Medicine 04/06/23 documented as of this encounter
--- OUTSIDE RECORDS SUMMARY | 2024-08-29 14:11 | XMS_ITS | Encounter Summary ---
Author Organization [facility] Address [address] [place] [address] Care Team Providers Care Associate Sales Representative Name Role Phone Unknown, Provider Primary Care Provider Unava ilable Encounter Details Date Type Department Care Team (Late st Contact Info) Description 11/19/2015 Results Only [facility] [phone] Senthil Brannon MD [address] [place] [phone] Social History Tobacco Use Types Packs/Day Years [...] Procedure Name Priority Date/Time Associated Diagnosis Comments SURGICAL PATHOLOGY Routine 11/19/2015 14 :13 EST documented in this encounter Results * SURGICAL PATHOLOGY (11/19/2015 14:13 EST) Pathology Report: SURGICAL PATHOLOGY REPORT Reports generated via electronic interface contain original data; however they are lacking the format of the original report. Caution should be taken when reading/interpret ing unformatted reports. Name: ? BRENDA ESTEBAN ? Accession #: ? [id number] ? : ? 1960 (Age: 55) ??M ? Collect Date: ? 11/19/2015 ? Location: ? [facility] ? Receive Date: ? 11/20/2015 ? Provider: SENTHIL BRANNON MD Copy to: ? Final Pathologic Diagnosis: COLON, DESCENDING POLYP, BIOPSY: - ??Fragments of tubular adenoma. Document reviewed and electronically signed by: VU ALEJANDRE MD Report ??Date: 11/22/2015 13:05 By the signature above, the attending physician certifies that he/she has personally conducted a gross and/or microscopic examination of the described specimens and rendered or confirmed the above diagnosis. Specimen(s) Received: Descending colon polyp Clinical History: Screening C/S; descending colon polyp Gross Description: ? Received in formalin labelled with proper patient identification (initials J, P) and descending colon polyp are two pale fan tissues (0.3 x 0.3 x 0.1 cm and 0.4 x 0.3 x 0.2 cm). Entirely submitted in 1. Gloria COSME 11/20/2015 2:[address] [facility] 11/19/2015 14:1 3 EST 11/20/2015 14:13 EST us Senthil Brannon MD PATHOLOGY ORDERABLES Final Resu lt [facility] [address] [place] [address] documented in this encounter Visit Diagnoses Not on filedocumented in this encounter Care Teams Associate Sales Representative Relationship Specialty Start Date End Date Unknown, Provider, PCP - General 11/19/15 documented as of this encounter
--- OUTSIDE RECORDS SUMMARY | 2024-08-29 14:11 | XMS_ITS | Encounter Summary ---
Author Organization [facility] Address [facility] [place] [address] Care Team Providers Care Inbound Sales Representative Name Role Phone Astrid Grier MD Primary Care Provider Encounter Details Date Type Department Care Team (Latest Contact Info) Description 04/19/2024 Travel Social History Tobacco Use Types Packs/Day Years Used Date Smoking Tobacco: Never Smokeless Tobacco: Never Alcohol Use Standard Drinks/Week Comments Yes 23 (1 standard drink = 0.6 oz pu re alcohol) 2-3 drinks daily [facility] Inpatient Questions Answer Date Recorded Does Anyone Try to Keep You From Having Contact with Others or Doing Things Outside Your Home? no 04/19/2024 Feels Threatened by Someone no 06/2024 Feels Unsafe at Home or Work/School no 04/19/2024 Physical Signs of Abuse Present no 04/19/2024 Sex and Gender Information Value Date Recorded Sex Assigned at Not on file Gender Identity Not on file Sexual Orientation Not on file documented as of this encounter Plan of Treatment Not on file documented as of this encounter Visit Diagnoses Not on filedocumented in this encounter Care Teams Inbound Sales Representative Relationship Specialty Start Date End Date Astrid Grier MD [address] [place] [address] PCP - General Family Medicine 04/06/23 documented as of this encounter
--- OUTSIDE RECORDS SUMMARY | 2024-08-29 14:11 | XMS_ITS | Encounter Summary ---
Author Organization [facility] Address [facility] [place] [address] Care Team Providers Care Sap Basis Administrator Name Role Phone Astrid Grier MD Primary Care Provider Reason for Visit * Reason Comments Medication Refill Encounter Details Date Type Department Care Team (Late st Contact Info) Description 05/24/2024 Refill Cardiology at [address] [phone] Kareem Schuler [place] [facility] [place] [place] [address] Medication Refill Social History Tobacco Use Types Packs/Day Years Used Date Smoking Tobacco: Never Smokeless Tobacco: Never Alcohol Use Standard Drinks/Week Comments Yes 23 (1 standard drink = 0.6 oz pu re alcohol) 2-3 drinks daily [facility] Inpatient Questions Answer Date Recorded [...] documented as of this encounter Visit Diagnoses Diagnosis Chronic atrial fibrillation Atrial fibrillation documented in this encounter Care Teams Sap Basis Administrator Relationship Specialty Start Date End Date Astrid Grier MD [address] [place], [place] [phone] PCP - General Family Medicine 04/06/23 documented as of this encounter
--- OUTSIDE RECORDS SUMMARY | 2024-08-29 14:11 | XMS_ITS | Encounter Summary ---
Author Organization [facility] Address [address] [place] [address] Care Team Providers Care Web Designer Name Role Phone Unknown, Provider Primary Care Provider Unava ilable Encounter Details Date Type Department Care Team (Late st Contact Info) Description 02/24/2024 Lab Requisition [facility] Pathology & Laboratory Medicine - [facility] [address], [place] [id number] Outr Resulting Lab, Provider Social History Tobacco [...] Comments OPIATES AND METABOLITES CONFIRMATION PANEL Routine 02/24/2024 11:30 EDT documented in this encounter Results * (ABNORMAL) OPIOIDS AND METABOLITES CONFIRMATION PANEL (02/24/2024 11:30 EDT) Codeine Confirmation Negative <100 ng/mL 02/26/2024 13:41 EDT [facility] Morphine Confirmation Negative <100 ng/mL 02/26/2024 13:41 EDT [facility] Hydrocodone Confirmation >1000(A) <50 ng/mL 02/26/2024 13:41 EDT [facility] Hydromorphone Confirmation 779(A) <50 ng/mL 02/26/2024 13:41 EDT [facility] Oxycodone Confirmation Negative <50 ng/mL 02/26/2024 13:41 EDT [facility] Oxymorphone Confirmation Negative <50 ng/mL 02/26/2024 13:41 EDT [facility] Dihydrocodeine Confirmation >1000(A) <50 ng/mL 02/26/2024 13:41 EDT [facility] Norhydrocodone Confirmation >1000(A) <50 ng/mL 02/26/2024 13:41 EDT [facility] Norhydromorphone Confirmation 201(A) <50 ng/mL 02/26/2024 13:41 EDT [facility] Noroxycodone Confirmation Negative <50 ng/mL 02/26/2024 13:41 EDT [facility] Noroxymorphone Confirmation Negative <50 ng/mL 02/26/2024 13:41 EDT [facility] Urine URINE / Unknown 02/24/2024 1 1:30 EDT 02/24/2024 22:06 EDT Narrative [facility] - 02/26/2024 13:41 EDT Testing performed by: [facility] [address] [place] [address], [address], [place] [address] Printer Maintainer: Rah Aleman MD; CLIA # [id number] us Provider Outr Resulting Lab GEN LAB UNIT COLLECT ORDERABLES Final Result Performing Organization Address City/State/[facility] Co de Phone Number [facility] [address] [place] [address], [address] [place] [address], [facility] [phone] documented in this encounter Visit Diagnoses Not on filedocumented in this encounter Care Teams Web Designer Relationship Specialty Start Date End Date Unknown, Provider, PCP - General 11/19/15 documented as of this encounter
--- OUTSIDE RECORDS SUMMARY | 2024-08-29 14:11 | XMS_ITS | Encounter Summary ---
Author Organization [facility] Address [address] [place] [address] Care Team Providers Care Viscose Cellar Worker Name Role Phone Unknown, Provider Primary Care Provider Unava ilable Encounter Details Date Type Department Care Team (Late st Contact Info) Description 02/28/2020 Lab Requisition [facility] Pathology & Laboratory Medicine - [facility] [place] [address] [place], [place] [phone] Outr Resulting Lab, Provider Social History Tobacco [...] Procedure Name Priority Date/Time Associated Diagnosis Comments OVA/PARASITE EXAM Routine 02/28/2020 17: 33 EDT documented in this encounter Results * OVA/PARASITE EXAM (02/28/2020 17:33 EDT) Parasite No ova and parasites seen. 02/29/2020 12:[address] [facility] Feces SPECIMEN FROM RECTUM / Unknown 02/28/2020 17:33 EDT 02/29/2020 7:[address] [facility] - 02/29/2020 12:41 EDT (If Cryptosporidium, Cyclospora, or Microsporidium are suspected, specific tests must be requested.) Single negative specimen does not rule out the possibility of a parasitic infection. us Provider Outr Resulting Lab MICROBIOLOGY - GENER AL ORDERABLES Final Result Performing Organization Address [facility]/State/ZIP Co de Phone Number [facility] [address] [place] [address] documented in this encounter Visit Diagnoses Not on filedocumented in this encounter Care Teams Viscose Cellar Worker Relationship Specialty Start Date End Date Unknown, Provider, PCP - General 11/19/15 documented as of this encounter
--- OUTSIDE RECORDS SUMMARY | 2024-08-29 14:11 | XMS_ITS | Encounter Summary ---
Author Organization [facility] Address [address] [place] [address] Care Team Providers Care Herbarium Curator Name Role Phone Unknown, Provider Primary Care Provider Unava ilable Encounter Details Date Type Department Care Team (Late st Contact Info) Description 03/19/2023 Lab Requisition [facility] Path[facility] [address], [place] [id number] Outr Resulting Lab, Provider Social History Tobacco [...] Comments OPIATES AND METABOLITES CONFIRMATION PANEL Routine 03/19/2023 12:10 EDT documented in this encounter Results * (ABNORMAL) OPIOIDS AND METABOLITES CONFIRMATION PANEL (03/19/2023 12:10 EDT) Codeine Confirmation Negative <100 ng/mL 03/23/2023 8:34 EDT [facility] Morphine Confirmation Negative <100 ng/mL 03/23/2023 8:34 EDT [facility] Hydrocodone Confirmation >1000(A) <50 ng/mL 03/23/2023 8:34 EDT [facility] Hydromorphone Confirmation 237(A) <50 ng/mL 03/23/2023 8:34 EDT [facility] Oxycodone Confirmation Negative <50 ng/mL 03/23/2023 8:34 EDT [facility] Oxymorphone Confirmation Negative <50 ng/mL 03/23/2023 8:34 EDT [facility] Dihydrocodeine Confirmation >1000(A) <50 ng/mL 03/23/2023 8:34 EDT [facility] Norhydrocodone Confirmation >1000(A) <50 ng/mL 03/23/2023 8:34 EDT [facility] Norhydromorphone Confirmation Negative <50 ng/mL 03/23/2023 8:34 EDT [facility] Noroxycodone Confirmation Negative <50 ng/mL 03/23/2023 8:34 EDT [facility] Noroxymorphone Confirmation Negative <50 ng/mL 03/23/2023 8:34 EDT [facility] Urine URINE / Unknown 03/19/2023 1 2:10 EDT 03/19/2023 21:39 EDT Narrative [facility] - 03/23/2023 8:34 EDT Testing performed by: [facility] T[facility] [address] [place] [address], [facility] [address] [address] Granite Polisher Machine: Rah Aleman MD; CLIA # [id number] us Provider Outr Resulting Lab GEN LAB UNIT COLLECT ORDERABLES Final Result [facility] [address] [place] [address], [facility] [address] [place] [address], [facility] [phone] documented in this encounter Visit Diagnoses Not on filedocumented in this encounter Care Teams Herbarium Curator Relationship Specialty Start Date End Date Unknown, Provider, PCP - General 11/19/15 documented as of this encounter
--- OUTSIDE RECORDS SUMMARY | 2024-08-29 14:11 | XMS_ITS | Referral Summary ---
Author Organization [facility] Address [address] [place] [address] Care Team Providers Care Floorwalker Name Role Phone Unknown, Provider MD Primary Care Provider Unava ilable Encounters Date Type Department Care Team Description 08/08/2024 Lab Requisition [facility] Pathology & Laboratory Medicine - [facility] [address] [place] [address] Outr Resulting Lab, Provider from Last 3 Months Social History Tobacco Use Types Packs/Day Years Used Date Smoking Tobacco: Never Assessed Sex and Gender Information Value Date Recorded Sex Assigned at Not on file Legal Sex Male 18:46 EST Gender Identity Not on file Sexual Orientation Not on file Plan of Treatment Not on file Procedures Procedure Name Priority Date/Time Associated Diagnosis Comments OPIATES AND METABOLITES CONFIRMATION PANEL Routine 08/08/2024 11:28 EDT HEPATITIS C AB W REFLEX TO HCV RNA BY PCR Routine 08/07/2022 10:00 EDT from Last 3 Months or Most Recently Relevant to Health Maintenance Results * (ABNORMAL) OPIOIDS AND METABOLITES CONFIRMATION PANEL (08/08/2024 11:28 EDT) Codeine Confirmation Negative <100 ng/mL 08/10/2024 8:32 EDT [facility] Morphine Confirmation Negative <100 ng/mL 08/10/2024 8:32 EDT [facility] Hydrocodone Confirmation >1000(A) <50 ng/mL 08/10/2024 8:32 EDT [facility] Hydromorphone Confirmation 297(A) <50 ng/mL 08/10/2024 8:32 EDT [facility] Oxycodone Confirmation Negative <50 ng/mL 08/10/2024 8:32 EDT [facility] Oxymorphone Confirmation Negative <50 ng/mL 08/10/2024 8:32 EDT [facility] Dihydrocodeine Confirmation >1000(A) <50 ng/mL 08/10/2024 8:32 EDT [facility] Norhydrocodone Confirmation >1000(A) <50 ng/mL 08/10/2024 8:32 EDT [facility] Norhydromorphone Confirmation 61(A) <50 ng/mL 08/10/2024 8:32 EDT [facility] Noroxycodone Confirmation Negative <50 ng/mL 08/10/2024 8:32 EDT [facility] Noroxymorphone Confirmation Negative <50 ng/mL 08/10/2024 8:32 EDT [facility] Urine URINE / Unknown 08/08/2024 1 1:28 EDT 08/08/2024 22:07 EDT Narrative [facility] - 08/10/2024 8:32 EDT Testing performed by: [facility] [address] [place] [address] Financial Foundations Associate: Rah Aleman MD; CLIA # [id number] us Provider Outr Resulting Lab GEN LAB UNIT COLLECT ORDERABLES Final Result Performing Organization Address City/[facility]/ZIP Co de Phone Number [facility] [address] [place] [address] * HEPATITIS C AB W REFLEX TO HCV RNA BY PCR (08/07/2022 10:00 EDT) Hep C Antibody Negative Negative 08/08/2022 9:16 EDT [facility] Blood VENOUS BLOOD / Unknown 08/07/2022 10:00 EDT 08/07/2022 21:02 EDT us Provider Outr Resulting Lab CHEMISTRY & BLOOD GA S ORDERABLES Final Result [facility] [address] [place] [address] from Last 3 Months or Most Recently Relevant to Health Maintenance Care Teams Floorwalker Relationship Specialty Start Date End Date Unknown, Provider, PCP - General 11/19/15
--- OUTSIDE RECORDS SUMMARY | 2024-08-29 14:11 | XMS_ITS | Encounter Summary ---
Author Organization [facility] Address [facility] [place] [address] Care Team Providers Care Contact Center Representative Name Role Phone Astrid Grier MD Primary Care Provider Reason for Visit * Consultation (Urgent) - Closed Specialty Diagnoses / Procedures Referred By Contac t Referred To Contact Cardiology Diagnoses Atrial fibrillation, unspecified type AF, Tikosyn load Larry Reid MD [address] [place], [place] [address] [place] [address] [facility] [address] [place] [phone] Referral ID Status Reason Start Date Expiration Date V isits Requested Visits Authorized [id number] Closed Consult, Test & Treat 01/28/2024 01/27/2025 1 1 Encounter Details Date Type Department Care Team (Late st Contact Info) Description 03/09/2024 1:30 PM EDT Office Visit Cardiology at [address] [phone] Kareem Schuler PA [facility] [place] [place] [address] Chronic atrial fibrillation Social History Tobacco Use Types Packs/Day Years Used Date Smoking Tobacco: Never Smokeless Tobacco: Never Alcohol Use Standard Drinks/Week Comments Yes 23 (1 standard drink = 0.6 oz pu re alcohol) 2-3 drinks daily [facility] Inpatient Questions Answer Date Recorded [...] on file documented as of this encounter Last Filed Vital Signs Vital Sign Reading Time Taken Comments Blood Pressure 131/83 03/09/2024 1:45 PM EDT Pulse 76 03/09/2024 1:45 PM EDT Temperature - - Respiratory Rate - - Oxygen Saturation 97% 03/09/2024 1:45 PM EDT Inhaled Oxygen Concentration - - Weight 116.1 kg (256 lb) 03/09/2024 1:45 PM EDT Height 179.1 cm (5' 10.5) 03/09/2024 1:45 PM ED T Body Mass Index 36.21 03/09/2024 1:45 PM EDT documented in this encounter Progress Notes * Kareem Schuler PA - 03/09/2024 1:30 PM EDT Cardiac Electrophysiology Clinic Note Patient: Enoc Esteban : 1960 Brief HPI: Enoc Esteban is a 64 year old male with a PMH significant for obesity, TYRON, HTN, TIA and atrial fibrillation anticoagulated with Apixaban 5 mg BID who was referred by Dr. Larry Reid to be evaluated for Dofetilide drug load admission. Enoc reports that he has been dealing with AF for several years and for the last couple of years has been significantly symptomatic. His symptoms include light-headedness (he fell a couple of weeks ago), palpitations, SOB and the feeling that his legs are very heavy and sluggish. Enoc is followed by Anat Cross NP at [facility] who saw him on 12/07/23 complaining of symptomatic AF with dizziness and MARTINEZ. He wore a Ziopatch last April that showed a 90% burden of AF with an average heart rate <100 bpm. He recently wore another Ziopatch, but just sent it in. ROS: Constitutional: + fatigue, + activity intolerance, - fever, - chills Respiratory: + shortness of breath, - cough, - apnea, - wheezing Cardiovascular: + palpitations, - chest pain, - unusual rates Gastrointestinal: - nausea, - vomiting, - abdominal pain, - diarrhea Neurological: + lightheadedness, - dizziness, - syncope, - weakness Psychiatric: - anxious Patient Active Problem List Diagnosis Inflammatory arthritis Muscle pain Lyme disease Hyperlipidemia Sciatica Tinea corporis Transient ischemic attack Chronic pain Spondylosis of lumbar region without myelopathy or radiculopathy Microscopic hematuria Dupuytren's contracture of right hand Insulin resistance S/p Left SLIM on 04/12/20 (Dr. Lay) Status post total hip replacement, left Obesity (BMI 30.0-34.9) History of cervical spinal surgery History of lumbar surgery Pain of left hip joint Lumbar radiculopathy Diverticulosis of colon Psychophysiologic insomnia Atrial fibrillation Radiculopathy of cervical region HTN (hypertension) Tophaceous gout Hyperuricemia Mild vitamin D deficiency Moderate asthma TYRON (obstructive sleep apnea) Current Outpatient Medications Medication Sig atorvastatin (Lipitor) 20 mg tablet Take 20 mg by mouth. Adalimumab (Humira Pen) 40 mg/0.8 mL Pen Injector Kit Inject 0.8 mLs subcutaneously every [address] (Cymbalta) [address] capsule Take 2 capsules by mouth nightly. triamcinolone (KENALOG) 0.025 % Cream APPLY A THIN FILM TOPICALLY TWO TIMES A DAY NEEDED naloxone (Narcan) 4 mg/actuation [place], Non-Aerosol by Nasal route. hydrOXYzine (ATARAX) 50 mg Tablet TAKE ONE TABLET BY MOUTH EVERY DAY AT DINNER traZODone (Desyrel) 50 mg Tablet TAKE ONE TABLET BY MOUTH AT BEDTIME HYDROcodone-acetaminophen ([place]) 10-325 mg Tablet TAKE 2 TABLETS BY MOUTH 3 TIMES DAILY NEEDED FOR 28 DAYS acetaminophen (Tylenol) 500 mg Tablet Take 2 tablets by mouth as needed per package insert. febuxostat (Uloric) 40 mg Tablet Take 1 tablet by mouth daily. ELIQUIS 5 mg Tablet Take 5 mg by mouth 2 times daily. ipratropium-albuterol (COMBIVENT RESPIMAT) 20-100 mcg/actuation Mist Inhale 1 puff into the lungs as needed for Wheezing. VITAMIN D 50,000 unit Capsule Take 50,000 Units by mouth every 14 days. metoprolol succinate (TOPROL-XL) 50 mg Tablet Sustained Release 24 hr Take 1 tablet by mouth daily. VIAGRA 100 mg Tablet TAKE 1 TABLET BY MOUTH DAILY NEEDED MAX OF 1 TABLET IN 24 HOURS losartan (COZAAR) 50 mg Tablet Take 1 tablet by mouth daily. zolpidem (AMBIEN) 10 mg Tablet Take 10 mg by mouth nightly as needed. Vitals: Last Set of Vitals and range of vitals over past 24 hours: Last value Range last 24 hrs Heart Rate Heart Rate: 76 Heart Rate: [76] Blood Pressure BP: 131/83 BP: (131)/(83) SpO2 SpO2: 97 % SpO2: [97 %] Physical Exam: General- No acute distress, sitting comfortably in exam room chair HEENT- Head atraumatic, normocephalic Skin- Warm and dry Cardiovascular- S1/S2 regular rate and rhythm. No murmur, rub or gallop Lungs- Clear to auscultation bilaterally Extremities- Pulses equal bilaterally. No edema noted Neuro- A&Ox3 Recent Labs 03/09/24; 1338 NA 142 K 4.5 CL 104 CO2 28 BUN 13 CREATININE 1.48 GLUCOSE 107 EKG - Atrial fibrillation with ventricular rate 83 bpm. QTc 446 ms. Assessment & Plan: - 64 year old male with a PMH significant for obesity, TYRON, HTN, TIA and atrial fibrillation anticoagulated with Apixaban 5 mg BID would like to come in for Dofetilide initiation admission. He feels he has been in AF for the better part of the last two years and very symptomatic. - The last lab we have is from Aug and showed a Creatinine of 1.33; previous labs are consistent with this. Calculated CrCl with this level is 95 ml/min. Creatinine today is 1.48; calculated CrCl with this level is 85 ml/min. Previous EKGs showed appropriate QTc intervals; today's EKG showed QTc 446 ms in AF. Labs and EKG acceptable for Dofetilide initiation. - TTE in August 2023 showed LVEF 65% and normal LA. - Anticoagulated with Apixaban 5 mg BID. - Relatively compliant with CPAP. - Schedule admission for Dofetilide load. Kareem Schuler PA-C, PhD 03/09/2024 Pager: [phone] documented in this encounter Plan of Treatment Not on file documented as of this encounter Procedures Procedure Name Priority Date/Time Associated Diagnosis Comments EKG 12-LEAD Routine 03/09/2024 1:55 PM EDT documented in this encounter Results * EKG 12 Lead (03/09/2024 1:55 PM EDT) Ventricular rate 83 BPM MUSE SYSTEM QRS Duration 80 ms MUSE SYSTEM Q-T Interval 380 ms MUSE SYSTEM QTC Calculated (Bezet) 446 ms MUSE SYSTEM Calculated R [place] 59 degrees MUSE SYSTEM Calculated T [place] 16 degrees MUSE SYSTEM INTERPRETATION Atrial fibrillation Abnormal ECG When compared with ECG of 20-NOV-2023 11:02, No significant change was found Confirmed by MD Gene, Jesse ([id number]) on 03/09/2024 4:18:42 PM MUSE SYSTEM 03/09/2024 1:55 PM EDT 03/09/2024 4:18 PM EDT Unknown ECG ORDERABLES MUSE SYSTEM documented in this encounter Visit Diagnoses Diagnosis Chronic atrial fibrillation Atrial fibrillation documented in this encounter Care Teams Contact Center Representative Relationship Specialty Start Date End Date Astrid Grier MD [address] [place] [address] PCP - General Family Medicine 04/06/23 documented as of this encounter
--- OUTSIDE RECORDS SUMMARY | 2024-08-29 14:11 | XMS_ITS | Encounter Summary ---
Author Organization [facility] Address [address] [place] [address] Care Team Providers Care Urban Planning Teacher Name Role Phone Unknown, Provider Primary Care Provider Unava ilable Encounter Details Date Type Department Care Team (Late st Contact Info) Description 09/08/2023 Lab Requisition [facility] Pathology & Laboratory Medicine - [facility] [address], [place] [id number] Outr Resulting Lab, Provider Social History Tobacco [...] Comments OPIATES AND METABOLITES CONFIRMATION PANEL Routine 09/08/2023 11:27 EST documented in this encounter Results * (ABNORMAL) OPIOIDS AND METABOLITES CONFIRMATION PANEL (09/08/2023 11:27 EST) Codeine Confirmation Negative <100 ng/mL 09/10/2023 12:16 EST [facility] Morphine Confirmation Negative <100 ng/mL 09/10/2023 12:16 EST [facility] Hydrocodone Confirmation >1000(A) <50 ng/mL 09/10/2023 12:16 EST [facility] Hydromorphone Confirmation 539(A) <50 ng/mL 09/10/2023 12:16 EST [facility] Oxycodone Confirmation Negative <50 ng/mL 09/10/2023 12:16 EST [facility] Oxymorphone Confirmation Negative <50 ng/mL 09/10/2023 12:16 EST [facility] Dihydrocodeine Confirmation >1000(A) <50 ng/mL 09/10/2023 12:16 EST [facility] Norhydrocodone Confirmation >1000(A) <50 ng/mL 09/10/2023 12:16 EST [facility] Norhydromorphone Confirmation Negative <50 ng/mL 09/10/2023 12:16 EST [facility] Noroxycodone Confirmation Negative <50 ng/mL 09/10/2023 12:16 EST [facility] Noroxymorphone Confirmation Negative <50 ng/mL 09/10/2023 12:16 EST [facility] Urine URINE / Unknown 09/08/2023 1 1:27 EST 09/08/2023 22:57 EST Narrative [facility] - 09/10/2023 12:16 EST Testing performed by: [email or web address] [address] [place] [address], [facility] [address] [address] Custom Tailor Apprentice: Rah Aleman MD; CLIA # [id number] us Provider Outr Resulting Lab GEN LAB UNIT COLLECT ORDERABLES Final Result Performing Organization Address City/State/[facility] Co de Phone Number [facility] [address] [place] [address], [facility] [address] [place] [address], [facility] [phone] documented in this encounter Visit Diagnoses Not on filedocumented in this encounter Care Teams Urban Planning Teacher Relationship Specialty Start Date End Date Unknown, Provider, PCP - General 11/19/15 documented as of this encounter
--- OUTSIDE RECORDS SUMMARY | 2024-08-29 14:11 | XMS_ITS | Encounter Summary ---
Author Organization [facility] Address [address] [place] [address] Care Team Providers Care Hand Bindery Assembly Worker Name Role Phone Unknown, Provider Primary Care Provider Unava ilable Encounter Details Date Type Department Care Team (Late st Contact Info) Description 02/28/2020 Lab Requisition [facility] Pathology & Laboratory Medicine - [facility] [place] [address] [place], [place] [id number] Outr Resulting Lab, Provider Social History Tobacco [...] Diagnosis Comments OVA/PARASITE EXAM Routine 02/28/2020 17: 32 EDT documented in this encounter Results * OVA/PARASITE EXAM (02/28/2020 17:32 EDT) Parasite No ova and parasites seen. 02/29/2020 12:50 EDT [facility] Feces SPECIMEN FROM RECTUM / Unknown 02/28/2020 17:32 EDT 02/29/2020 7:47 EDT Narrative [facility] - 02/29/2020 12:50 EDT (If Cryptosporidium, Cyclospora, or Microsporidium are suspected, specific tests must be requested.) Single negative specimen does not rule out the possibility of a parasitic infection. us Provider Outr Resulting Lab MICROBIOLOGY - GENER AL ORDERABLES Final Result Performing Organization Address [facility]/State/ZIP Co de Phone Number [facility] [address] [place] [address] documented in this encounter Visit Diagnoses Not on filedocumented in this encounter Care Teams Hand Bindery Assembly Worker Relationship Specialty Start Date End Date Unknown, Provider, PCP - General 11/19/15 documented as of this encounter
--- OUTSIDE RECORDS SUMMARY | 2024-08-29 14:11 | XMS_ITS | Encounter Summary ---
Author Organization [facility] [place] [address] Care Team Providers Care Group Leader Semiconductor Processing Name Role Phone Astrid Grier MD Primary Care Provider Encounter Details Date Type Department Care Team (Late st Contact Info) Description 04/15/2024 Orders Only Cardiology at [address] [phone] Kareem Schuler PA [facility] [place] [place] [address] Chronic atrial fibrillation Social History Tobacco Use Types Packs/Day Years Used Date Smoking Tobacco: Never Smokeless Tobacco: Never Alcohol Use Standard Drinks/Week Comments Yes 23 (1 standard drink = 0.6 oz pu re alcohol) 2-3 drinks daily IPV Inpatient Questions Answer Date Recorded Does [...] fibrillation documented in this encounter Care Teams Group Leader Semiconductor Processing Relationship Specialty Start Date End Date Astrid Grier MD [address] [place] [address] PCP - General Family Medicine 04/06/23 documented as of this encounter
--- OUTSIDE RECORDS SUMMARY | 2024-08-29 14:11 | XMS_ITS | Encounter Summary ---
Author Organization [facility] [address] Care Team Providers Care Fly Setter Name Role Phone Astrid Grier MD Primary Care Provider Reason for Visit * Reason Onset Date Comments Medication Refill 03/17/2024 Encounter Details Date Type Department Care Team (Late st Contact Info) Description 03/17/2024 Refill [place] [phone] Marcial Lake, RN Social History Tobacco Use Types Packs/Day Years [...] on file documented as of this encounter Miscellaneous Notes * Telephone Encounter - Marcial Lake RN - 03/17/2024 3:58 PM EDT Images from the original note were not included. Media Information Document Information Other: External Correspondence - non Duloxetine 03/16/2024 00:00 Attached To: scans only on 03/16/24 with Provider, Scanning Source Information Provider, Scanning Document History documented in this encounter Plan of Treatment Not on file documented as of this encounter Visit Diagnoses Not on filedocumented in this encounter Care Teams Fly Setter Relationship Specialty Start Date End Date Astrid Grier MD [address] [place] [address] PCP - General Family Medicine 04/06/23 documented as of this encounter
--- OUTSIDE RECORDS SUMMARY | 2024-08-29 14:11 | XMS_ITS | Encounter Summary ---
Author Organization [facility] Address [address] [place] [address] Care Team Providers Care Wire Photo Operator Name Role Phone Unknown, Provider Primary Care Provider Unava ilable Encounter Details Date Type Department Care Team (Late st Contact Info) Description 08/07/2022 Lab Requisition [facility] Pathology & Laboratory Medicine - [facility] [address], [place] [id number] Outr Resulting Lab, Provider Social History Tobacco [...] Procedure Name Priority Date/Time Associated Diagnosis Comments HEPATITIS C AB W REFLEX TO HCV RNA BY PCR Routine 08/07/2022 10:00 EDT HEPATITIS B CORE ANTIBODY (TOTAL) Routine 08/07/2022 10:00 EDT HEPATITIS B SURFACE ANTIBODY Routine 08/07/2022 10:00 EDT HEPATITIS B SURFACE ANTIGEN Routine 08/07/2022 10:00 EDT documented in this encounter Results * HEPATITIS B CORE ANTIBODY (TOTAL) (08/07/2022 10:00 EDT) Hepatitis B Core Ab, Total Negative Negative 08/08/2022 9:46 EDT [facility] Blood VENOUS BLOOD / Unknown 08/07/2022 10:00 EDT 08/07/2022 21:02 EDT us Provider Outr Resulting Lab CHEMISTRY & BLOOD GA S ORDERABLES Final Result [facility] [address] [place] [address] * HEPATITIS B SURFACE ANTIGEN (08/07/2022 10:00 EDT) Hep B Surface Ag Negative Negative 08/08/2022 9:20 EDT [facility] Blood VENOUS BLOOD / Unknown 08/07/2022 10:00 EDT 08/07/2022 21:02 EDT us Provider Outr Resulting Lab CHEMISTRY & BLOOD GA S ORDERABLES Final Result Performing Organization Address [facility] Co de Phone Number [facility] [address] [place] [address] * HEPATITIS B SURFACE ANTIBODY (08/07/2022 10:00 EDT) Hep B Surface Ab, Quantitative <3.1 See Note mIU/mL 08/08/2022 9:45 EDT [facility] Comment: Reference Range for Hep B Surface Ab, Quant: Positive: >= 10.0 mIU/mL Negative: ??< 10.0 mIU/mL Patient is presumed to not be immune to infection with Hepatitis B Virus. Hep B Surface Ab, Qualitative Negative See Note 08/08/2022 9:45 EDT [facility] Comment: Reference Range for Hep B Surface Ab, Qual: Unvaccinated: ??Negative Vaccinated: ??Positive Blood VENOUS BLOOD / Unknown 08/07/2022 10:00 EDT 08/07/2022 21:02 EDT us Provider Outr Resulting Lab CHEMISTRY & BLOOD GA S ORDERABLES Final Result Performing Organization Address [facility] Co de Phone Number [facility] [address] [place] [address] * HEPATITIS C AB W REFLEX TO HCV RNA BY PCR (08/07/2022 10:00 EDT) Hep C Antibody Negative Negative 08/08/2022 9:16 EDT [facility] Blood VENOUS BLOOD / Unknown 08/07/2022 10:00 EDT 08/07/2022 21:02 EDT us Provider Outr Resulting Lab CHEMISTRY & BLOOD GA S ORDERABLES Final Result [facility] [address] [place] [address] documented in this encounter Visit Diagnoses Not on filedocumented in this encounter Care Teams Wire Photo Operator Relationship Specialty Start Date End Date Unknown, Provider, PCP - General 11/19/15 documented as of this encounter
--- OUTSIDE RECORDS SUMMARY | 2024-08-29 14:11 | XMS_ITS | Continuity of Care Document ---
Author Organization [facility] Address [address] [place] [address] Care Team Providers Care Packaging Manager Name Role Phone Astrid Mcdonough Primary Care Physician Encounter [place] Date(s): 09/01/23 - 09/01/[address] [address] Discharge Disposition: Home or Self Care Attending Physician: Anat Cross NP Admitting Physician: Anat Cross NP Referring Physician: Anat Cross GAS ENGINE OPERATOR COMPRESSORS Allergies, Adverse Reactions, Alerts No Known Medication [...] Daily, # 90 tab, 2 Refill(s), Pharmacy: [id number] Start Date: 06/16/23 Status: Ordered Combivent Respimat CFC free 20 mcg-100 mcg/inh inhalation aerosol 1 puffs, Inhale, As Directed, # 4 g, 0 Refill(s) Start Date: 03/19/23 Status: Ordered DULoxetine 30 mg oral delayed release capsule 30 mg = 1 cap, Oral, BID, # 180 cap, 3 Refill(s), Pharmacy: [facility] Start Date: 07/11/23 Stop Date: 07/05/24 Status: Ordered Eliquis 5 mg oral tablet 5 mg = 1 tab, Oral, BID, # 180 tab, 3 Refill(s), Pharmacy: [facility] Start Date: 07/30/23 Stop Date: 07/24/24 Status: Ordered ergocalciferol 1.25 mg (50,000 intl units) oral capsule 50,000 IntlUnit = 1 cap, Oral, every 2 wk, as directed, # 7 cap, 3 Refill(s), Pharmacy: [facility] Start Date: 07/22/22 Stop Date: 07/17/23 Status: Ordered febuxostat 40 mg oral tablet 1 tab, Oral, Daily, # 90 tab, 3 Refill(s), Pharmacy: [facility] Start Date: 07/11/23 Stop Date: 07/05/24 [...] wean., # 168 tab, 0 Refill(s), Pharmacy: [facility] Start Date: 08/24/23 Stop Date: 09/21/23 Status: Ordered HYDROcodone-acetaminophen 10 mg-325 mg oral tablet 1 tab, Oral, every 4 hr, PRN as needed for pain, Take 1 tablet every 4-6 hours as needed for severepain. Recommendations to decrease to 5 tablets daily for upcoming wean., # 168 tab, 0 Refill(s), Pharmacy: [facility] Start Date: 07/27/23 Stop Date: 08/24/23 Status: Ordered hydrOXYzine hydrochloride 50 mg oral tablet 30 EA, TAKE ONE TABLET BY MOUTH EVERY DAY WITH EVENING MEAL, 0 Refill(s) Start Date: 03/19/23 Status: Ordered ketoconazole 2% topical cream 1 ignacio, Topical, BID, to affected area. Anti-fungal for yeast infection., # 60 g, 0 Refill(s), Pharmacy: [facility] Start Date: 08/22/22 Stop Date: 09/19/22 Status: Ordered losartan 50 mg oral tablet 50 mg = 1 tab, Oral, Daily, # 90 tab, 2 Refill(s), Pharmacy: [facility] Start Date: 03/19/23 Status: Ordered metoprolol succinate 25 mg oral capsule, extended release 25 mg = 1 cap, Oral, Daily, Take 25mg and 50mg for total fof 75 mg daily, # 90 cap, 0 Refill(s), Pharmacy: [facility] Start Date: 07/11/23 Status: Ordered Metoprolol Succinate ER 50 mg oral tablet, extended release 50 mg = 1 tab, Oral, Daily, # 90 tab, 3 Refill(s), Pharmacy: [facility] Start Date: 07/22/22 Stop Date: 07/17/23 Status: Ordered Narcan 4 mg/0.1 mL nasal spray 1 sprays, Nasal, Once, PRN other (see comment), may repeat every 2 to 3 minutes until patient responds, # 2 EA, 0 Refill(s), Pharmacy: [facility] Start Date: 09/25/22 Status: Ordered sildenafil 100 mg oral tablet 1 tab, Oral, Daily, # 10 tab, 3 Refill(s), Pharmacy: [facility], 180.34, cm, 07/23/23 9:23:00 EDT, Height Start Date: 08/26/23 Stop Date: 12/24/23 Status: Ordered traZODone 50 mg oral tablet 1 tab, Oral, every night at bedtime, # 90 tab, 3 Refill(s), Pharmacy: [facility] Start Date: 03/19/23 Stop Date: 03/13/24 Status: Ordered triamcinolone 0.025% topical cream 1 igancio, Topical, BID, PRN itching/rash, apply a thin film to affected area Steroid cream for itchingand redness., # 60 g, 0 Refill(s), Pharmacy: [facility] Start Date: 08/22/22 Stop Date: 09/05/22 Status: Ordered triamcinolone 0.5% topical ointment 1 ignacio, Topical, BID, # 430 g, 0 Refill(s), Pharmacy: [facility] Start Date: 12/25/22 Stop Date: 01/08/23 Status: Ordered zolpidem 10 mg oral tablet 10 mg = 1 tab, Oral, every night at bedtime, swallow whole do not crush or chew, # 28 tab, 1 Refill(s), Pharmacy: [facility] Start Date: 07/29/23 Stop Date: 09/23/23 [...] Access Member Role: Informed Provider Address: Address: [address] [place] [address] [place] [address] [place] Care Team Related Persons Name: VADIM COSTA
--- OUTSIDE RECORDS SUMMARY | 2024-08-29 14:11 | XMS_ITS | Encounter Summary ---
[place] [address] Care Team Providers Care Chemist Assistant Name Role Phone Astrid Grier MD Primary Care Provider Encounter Details Date Type Department Care Team (Latest Contact Info) Description 03/09/2024 2:30 PM EDT Laboratory Appointment Lab [address] [place] [address] Chronic atrial fibrillation Social History Tobacco Use [...] Procedure Name Priority Date/Time Associated Diagnosis Comments MAGNESIUM Routine 03/09/2024 1:38 PM EDT Chronic atrial fibrillation BASIC METABOLIC PANEL Routine 03/09/2024 1:38 PM EDT Chronic atrial fibrillation documented in this encounter Results * (ABNORMAL) Basic Metabolic Panel (non-fasting) (03/09/2024 1:38 PM EDT) Glucose 107 65 - 199 mg/dL [facility] Comment:Diabetes: >=200 mg/d L plus symptoms Blood Urea Nitrogen 13 10 - 20 mg/dL [facility] Creatinine 1.48 0.80 - 1.50 mg/dL [facility] Sodium 142 135 - 145 mmol/L [facility] Potassium 4.5 3.5 - 5.0 mmol/L [facility] Comment: Please note: ??Patients with WBC >100,000 may have falsely elevated Potassium levels. ??For accurate Potassium quantification in these patients send serum separator tube (gold top) for subsequent determinations. ??Contact the Clinical Chemistry Laboratory if there are any questions. Chloride 104 98 - 107 mmol/L [facility] Carbon Dioxide 28 22 - 31 mmol/L [facility] Anion Gap 10 5 - 15 mmol/L [facility] Calcium 9.4 8.5 - 10.5 mg/dL [facility] Est Glomerular Filtration Rate 53(L) >=60 mL/min/1. 73 m?? [facility] Comment: This patient's estimated GFR [...] In Lab Herbie Frankel MD CHEMISTRY ORDERABLES [facility] [place] [address] * Magnesium (03/09/2024 1:38 PM EDT) Magnesium 0.97 0.69 - 1.07 mmol/L [facility] Blood 03/09/2024 1:38 PM EDT 03/09/2024 2:01 PM EDT Narrative Resulting Agency Comment Spec In Lab Herbie Frankel MD CHEMISTRY ORDERABLES Performing Organization Address City/[facility]/ZIP Co de Phone Number [facility] [place] [address] documented in this encounter Visit Diagnoses Diagnosis Chronic atrial fibrillation Atrial fibrillation documented in this encounter Care Teams Chemist Assistant Relationship Specialty Start Date End Date Astrid Grier MD [address] [place] [address] PCP - General Family Medicine 04/06/23 documented as of this encounter
--- OUTSIDE RECORDS SUMMARY | 2024-08-29 14:11 | XMS_ITS | Encounter Summary ---
Author Organization [facility] Address [facility] [place] [address] Care Team Providers Care Civil Geotechnical Engineer Name Role Phone Astrid Grier MD Primary Care Provider Encounter Details Date Type Department Care Team (Latest Contact Info) Description 03/09/2024 Travel Social History Tobacco Use Types Packs/Day [...] on filedocumented in this encounter Care Teams Civil Geotechnical Engineer Relationship Specialty Start Date End Date Astrid Grier MD [address] [place] [address] PCP - General Family Medicine 04/06/23 documented as of this encounter
--- OUTSIDE RECORDS SUMMARY | 2024-08-29 14:11 | XMS_ITS | Encounter Summary ---
Author Organization [facility] Address [address] [place] [address] Care Team Providers Care Illuminator Name Role Phone Unknown, Provider Primary Care Provider Unava ilable Encounter Details Date Type Department Care Team (Late st Contact Info) Description 02/29/2020 Lab Requisition [facility] Pathology & Laboratory Medicine - [facility] [address] [place], [place] [id number] Outr Resulting Lab, Provider Social History Tobacco [...] Procedure Name Priority Date/Time Associated Diagnosis Comments FECAL BACTERIAL PATHOGENS BY PCR Routine 02/28/2020 15:32 EDT documented in this encounter Results * FECAL BACTERIAL PATHOGENS BY PCR (02/28/2020 15:32 EDT) Salmonella PCR Negative Negative 03/01/2020 10:42 EDT [facility] Shigella/Enteroin vasive E. coli Negative Negative 03/01/2020 10:42 EDT [facility] HN LAB CAMPYLOBACTER PCR Negative Negative 03/01/2020 10:42 EDT [facility] Shiga Toxin PCR Negative Negative 0 10:42 EDT [facility] Feces SPECIMEN FROM RECTUM / Unknown Stool Collect / Unknown 02/28/2020 15:32 EDT 02/29/2020 22:31 EDT us Provider Outr Resulting Lab MICROBIOLOGY - GENER AL ORDERABLES Final Result [facility] [address] [place] [address] documented in this encounter Visit Diagnoses Not on filedocumented in this encounter Care Teams Illuminator Relationship Specialty Start Date End Date Unknown, Provider, PCP - General 11/19/15 documented as of this encounter
--- OUTSIDE RECORDS SUMMARY | 2024-08-29 14:11 | XMS_ITS | Encounter Summary ---
Author Organization [facility] Address [facility] [place] [address] Care Team Providers Care Technology Development Intern Name Role Phone Astrid Grier MD Primary Care Provider Encounter Details Date Type Department Care Team (Late st Contact Info) Description 03/18/2024 [place] [id number] Kareem Schuler PA [facility] [place] [place] [address] Chronic atrial fibrillation Social History Tobacco Use [...] on file documented as of this encounter Results * EKG 12 Lead (04/19/2024 11:29 AM EDT) Ventricular rate 77 BPM MUSE SYSTEM QRS Duration 76 ms MUSE SYSTEM Q-T Interval 382 ms MUSE SYSTEM QTC Calculated (Bezet) 432 ms MUSE SYSTEM Calculated R Cisco 62 degrees MUSE SYSTEM Calculated T Cisco 24 degrees MUSE SYSTEM INTERPRETATION Atrial fibrillation Abnormal ECG When compared with ECG of 09-MAR-2024 13:55, No significant change was found Confirmed by MD Mills Jon ([id number]) on 04/19/2024 5:40:17 PM MUSE SYSTEM 04/19/2024 11:2 9 AM EDT 04/19/2024 5:40 PM EDT Atilio Esteban MD ECG ORDERABLES MUSE SYSTEM * Magnesium (04/19/2024 10:40 AM EDT) Magnesium 0.90 0.69 - 1.07 mmol/L [facility] Blood 04/19/2024 10:4 0 AM EDT 04/19/2024 10:56 AM EDT Narrative Resulting Agency Comment Spec In Lab Atilio Esteban MD CHEMISTRY ORDERABLES Performing Organization Address City/[facility]/ZIP Co de Phone Number [facility] [place] [address] * (ABNORMAL) Basic Metabolic Panel (non-fasting) (04/19/2024 10:40 AM EDT) Glucose 125 65 - 199 mg/dL [facility] Comment:Diabetes: >=200 mg/d L plus symptoms Blood Urea Nitrogen 13 10 - 20 mg/dL [facility] Creatinine 1.39 0.80 - 1.50 mg/dL [facility] Sodium 139 135 - 145 mmol/L [facility] Potassium 5.0 3.5 - 5.0 mmol/L [facility] Comment: Please note: ??Patients with WBC >100,000 may have falsely elevated Potassium levels. ??For accurate Potassium quantification in these patients send serum separator tube (gold top) for subsequent determinations. ??Contact the Clinical Chemistry Laboratory if there are any questions. Chloride 101 98 - 107 mmol/L [facility] Carbon Dioxide 27 22 - 31 mmol/L [facility] Anion Gap 11 5 - 15 mmol/L [facility] Calcium 9.6 8.5 - 10.5 mg/dL [facility] Est Glomerular Filtration Rate 57(L) >=60 mL/min/1. 73 m?? [facility] [...] and symptoms in addition to eGFR. Blood 04/19/2024 10:4 0 AM EDT 04/19/2024 10:56 AM EDT Narrative Resulting Agency Comment Spec In Lab Atilio Esteban MD CHEMISTRY ORDERABLES [facility] [place] [address] documented in this encounter Visit Diagnoses Diagnosis Chronic atrial fibrillation Atrial fibrillation documented in this encounter Care Teams Technology Development Intern Relationship Specialty Start Date End Date Astrid Grier MD [address] [place] [address] PCP - General Family Medicine 04/06/23 documented as of this encounter
--- OUTSIDE RECORDS SUMMARY | 2024-08-29 14:11 | XMS_ITS | Encounter Summary ---
Author Organization [facility] Address [facility] [place] [address] Care Team Providers Care Agribusiness Professor Name Role Phone Astrid Grier MD Primary Care Provider Reason for Visit * Auth/Cert (Routine) Specialty Diagnoses / Procedures Referred By Contac t Referred To Contact Diagnoses Chronic atrial fibrillation, unspecified Procedures PRO INITIAL INPT/OBS HIGH 75 MIN Anay Rodriguez MD [facility] [place] [address] [facility] Referral ID Status Reason Start Date Expiration Date Visits Re quested Visits Authorized [id number] 1 1 Encounter Details Date Type Department Care Team (Late st Contact Info) Description 04/19/2024 11:30 AM EDT Office Visit Cardiology at [address] [address] Kareem Schuler PA [facility] [place] [address] Chronic atrial fibrillation Social History Tobacco Use Types Packs/Day Years Used Date Smoking Tobacco: Never Smokeless Tobacco: Never Alcohol Use Standard Drinks/Week Comments Yes 23 (1 standard drink = 0.6 oz pu re alcohol) 2-3 drinks daily [facility] Inpatient Questions Answer Date Recorded Does Anyone [...] Sign Reading Time Taken Comments Blood Pressure 121/97 04/19/2024 11:20 AM EDT Pulse 90 04/19/2024 11:20 AM EDT pulse between 70 and 90 Temperature - - Respiratory Rate - - Oxygen Saturation 98% 04/19/2024 11: 20 AM EDT Inhaled Oxygen Concentration - - Weight 108.2 kg (238 lb 9.6 oz) 04/19/2024 11:20 AM EDT Height 182.9 cm (6') 04/19/2024 11:20 AM EDT Body Mass Index 32.36 04/19/2024 11:20 AM EDT documented in this encounter Progress Notes * Kareem Schuler PA - 04/19/2024 11:30 AM EDT Cardiac Electrophysiology AAD Load Work-Up Patient: Enoc Esteban : 1960 Attending: Anay Rodriguez MD Code Status: Full Subjective: HPI: Enoc Esteban is a 64 year old male with a PMH significant for obesity, TYRON, HTN, TIA and atrialfibrillation, anticoagulated with Apixaban 5 mg BID who was referred by Dr. Larry Reid and presents for drug load admission. Previous AAD: None Previous ablation: No Previous DCCV: No Current AVN Agents: Toprol 50 mg QD Current Anticoagulation: Apixaban Patient Active Problem List Diagnosis Inflammatory arthritis [...] deficiency Moderate asthma TYRON (obstructive sleep apnea) ROS: Constitutional: - fatigue, - fever, - chills Respiratory: - shortness of breath, - cough, - apnea, - wheezing Cardiovascular: - chest pain, - palpitations, - unusual rates Gastrointestinal: - nausea, - vomiting, - abdominal pain, - diarrhea Neurological: - lightheadedness, - dizziness, - syncope, - weakness Psychiatric: - anxious Current Outpatient Medications Medication Sig DULoxetine DR (Cymbalta) [address] capsule Take 2 capsules by mouth nightly. atorvastatin (Lipitor) 20 mg tablet Take 20 mg by mouth. Adalimumab (Humira Pen) 40 mg/0.8 mL Pen Injector Kit Inject 0.8 mLs subcutaneously every 14 days. triamcinolone (KENALOG) 0.025 % Cream APPLY A THIN FILM TOPICALLY TWO TIMES A DAY NEEDED FOR ITCHING/ RASH/ REDNESS naloxone (Narcan) 4 mg/actuation [place], Non-Aerosol by Nasal route. hydrOXYzine (ATARAX) 50 mg Tablet TAKE ONE TABLET BY MOUTH EVERY DAY AT DINNER traZODone (Desyrel) 50 mg Tablet TAKE ONE TABLET BY MOUTH AT BEDTIME HYDROcodone-acetaminophen (Greenleaf) 10-325 mg Tablet TAKE 2 TABLETS BY MOUTH 3 TIMES DAILY NEEDED FOR 28 DAYS acetaminophen (Tylenol) 500 mg Tablet Take 2 tablets by mouth every 8 hours. febuxostat (Uloric) 40 mg Tablet Take 1 [...] TAKE 1 TABLET BY MOUTH DAILY NEEDED losartan (COZAAR) 50 mg Tablet Take 1 tablet by mouth daily. zolpidem (AMBIEN) 10 mg Tablet Take 10 mg by mouth nightly as needed. Objective: Vitals: 04/19/24 1120 BP: (!) 121/97 Pulse: 90 SpO2: 98% Weight: 108.2 kg (238 lb 9.6 oz) Height: 182.9 cm (6') Physical Exam: General- No acute distress, sitting comfortably in exam room chair HEENT- Head atraumatic, normocephalic Skin- Warm and dry Neck- No JVD noted Cardiovascular- S1/S2 irregularly irregular rate and rhythm. No murmur, rub or gallop Lungs- Clear to auscultation bilaterally Extremities- Pulses equal bilaterally. No edema noted Neuro- A&Ox3 ECG in office today shows atrial fibrillation with ventricular rate 77 bpm. QTc is 432. Date 04/19pm Dose # Baseline 1 Dose Strength 500 HR (bpm) 77 QT (ms) 382 QTc (ms) 432 K 5.0 Mg 0.90 Estimated Creatinine Clearance: 70 mL/min (by Cockcroft-Gault based on SCr of 1.39 mg/dL). Assessment and Plan: Assessment: 1. 64 year old male with medical history significant for atrial fibrillation - Currently in atrial fibrillation 2. Chronic anticoagulation with Apixaban 5 mg BID 3. Initiation of Dofetilide - Calculated creatinine clearance is 70 ml/min - QTc is 432 ms at baseline - K and Mg are acceptable Plan: 1. Initate Dofetilide at initial dose of 500 BID 2. ECG 2hr post-dosing for QTc monitoring 3. Continue anticoagulation with Apixaban documented in this encounter Plan of Treatment Not on file documented as of this encounter Procedures Procedure Name Priority Date/Time Associated Diagnosis Comments EKG 12-LEAD Routine 04/19/2024 11:29 AM EDT Chronic atrial fibrillation documented in this encounter Results * EKG 12 Lead (04/19/2024 11:29 AM EDT) Ventricular rate 77 BPM MUSE SYSTEM QRS Duration 76 ms MUSE SYSTEM Q-T Interval 382 ms MUSE SYSTEM QTC Calculated (Bezet) 432 ms MUSE SYSTEM Calculated R Cedar 62 degrees MUSE SYSTEM Calculated T Cedar 24 degrees MUSE SYSTEM INTERPRETATION Atrial fibrillation Abnormal ECG When compared with ECG of 09-MAR-2024 13:55, No significant change was found Confirmed by MD Gene, Jesse ([id number]) on 04/19/2024 5:40:17 PM MUSE SYSTEM 04/19/2024 11:2 9 AM EDT 04/19/2024 5:40 PM EDT Atilio Esteban MD ECG ORDERABLES [employer] documented in this encounter Visit Diagnoses Diagnosis Chronic atrial fibrillation Atrial fibrillation documented in this encounter Care Teams Agribusiness Professor Relationship Specialty Start Date End Date Astrid Grier MD [address] [place] [address] PCP - General Family Medicine 04/06/23 documented as of this encounter
--- OUTSIDE RECORDS SUMMARY | 2024-08-29 14:11 | XMS_ITS | Encounter Summary ---
Author Organization [facility] Address [facility] [place] [address] Care Team Providers Care Barrel And Receiver Aligner Name Role Phone Astrid Grier MD Primary Care Provider Encounter Details Date Type Department Care Team (Late st Contact Info) Description 07/12/2024 Telephone Rheumatology at [facility] [place] [phone] Swati Donaldson Social History Tobacco Use Types Packs/Day Years Used Date Smoking Tobacco: Never Smokeless Tobacco: Never Alcohol Use Standard Drinks/Week Comments Yes 23 (1 standard drink = 0.6 oz pu re alcohol) 2-3 drinks daily [facility] Inpatient Questions Answer Date Recorded Does Anyone [...] on filedocumented in this encounter Care Teams Barrel And Receiver Aligner Relationship Specialty Start Date End Date Astrid Grier MD [address] [place] [address] PCP - General Family Medicine 04/06/23 documented as of this encounter
--- OUTSIDE RECORDS SUMMARY | 2024-08-29 14:11 | XMS_ITS | Continuity of Care Document ---
Author Organization [facility] Address [address] [place] [address] Care Team Providers Care Electro Plater Name Role Phone Astrid Mcdonough Primary Care Physician [phone] Encounter NCTY_ID Date(s): 03/03/24 - 03/03/24 [facility] [address] [place] [address] Encounter Diagnosis Atrial fibrillation(Discharge Diagnosis) - 02/29/24 Hyperlipidemia(Discharge Diagnosis) - 03/02/24 Discharge Disposition: Home or Self Care Attending [...] Office Visit Note Auth or:Anat Cross NP Date:03/03/24 Atrial fibrillation??I48.91 Actions: COMPLETED - [id number] Office/Outpatient Visit - Established Patient, Level 3 (20-29 min)., 03/03/24 9:02:00 EDT, Atrial fibrillation FUTURE - CV ECG Clinic, 03/02/24, Routine, Reason: Other (please specify), Order for future visit, Atrial fibrillation, ORD_SET_REQ_DT_RANGESarah's Internal Person Id FUTURE - Follow-Up Appointment Request NCTY, *Est. 08/03/24 +/- 21 days, Future Order, In Approximately, [facility] COMPLETED - Follow-Up Appointment Request NCTY, 03/03/24 9:40:00 EDT, In Approximately, [facility], 03/03/24 9:40:00 EDT ?? Hyperlipidemia??E78.5 ?? Future Appointments Immunizations Given and Recorded Vaccine [...] CHANORN. 2Result Comment: Patient Declined Medications [facility] Prescription 90 EA, TAKE ONE TABLET BY MOUTH EVERY DAY, 0 Refill(s) Start Date: 03/19/23 Status: Ordered atorvastatin 40 mg oral tablet 40 mg = 1 tab, Oral, Daily, # 90 tab, 3 Refill(s), Pharmacy: [facility], 179.07, cm, 12/07/23 9:04:00 EST, Height, 117.75, kg, 12/07/23 9:12:00 EST, Weight Dosing Start Date: 12/07/23 Status: Ordered Combivent Respimat CFC free 20 mcg-100 mcg/inh inhalation aerosol 1 puffs, Inhale, As Directed, # 4 g, 0 Refill(s) Start Date: 03/19/23 Status: Ordered DULoxetine 30 mg oral delayed release capsule 30 mg = 1 cap, Oral, BID, # 180 cap, 3 Refill(s), Pharmacy: [facility] Start Date: 07/11/23 Stop Date: 07/05/24 Status: Ordered Eliquis 5 mg oral tablet 5 mg = 1 tab, Oral, BID, # 180 tab, 3 Refill(s), Pharmacy: [facility], 180.34, cm, 07/23/23 9:23:00 EDT, Height, 117.93, kg, 09/08/23 10:25:00 EST, Weight Dosing Start Date: 10/22/23 Stop Date: 10/16/24 Status: Ordered ergocalciferol 1.25 mg (50,000 intl units) oral capsule 50,000 IntlUnit = 1 cap, Oral, every 2 wk, as directed, # 7 cap, 3 Refill(s), Pharmacy: [facility] Start Date: 07/22/22 Stop Date: 07/17/23 Status: Ordered erythromycin 0.5% ophthalmic ointment 0 Refill(s) Start Date: 02/24/24 Status: Ordered febuxostat 40 mg oral tablet 1 tab, Oral, Daily, # 90 tab, 3 Refill(s), Pharmacy: [facility], 180.34, cm, 07/23/23 9:23:00 EDT, Height, [...] wean., # 137 tab, 0 Refill(s), Pharmacy: [facility], 179, cm, 12/23/23 10:23:00 EDT, Height, 115.55, kg, 02/24/24 9:15:00 EDT,Weight Dosing Start Date: 02/24/24 Stop Date: 03/23/24 Status: Ordered HYDROcodone-acetaminophen 10 mg-325 mg oral tablet 1 tab, Oral, every 4 hr, PRN as needed for pain, Take 1 tablet every 4-6 hours as needed for severepain. Minimize use to prepare for weaning, # 137 tab, 0 Refill(s), Pharmacy: [facility], 179, cm, 12/23/23 10:23:00 EDT, Height, 115.55, kg, 02/24/24 9:15:00 EDT, Weight Dosing Start Date: 02/24/24 Stop Date: 03/23/24 Status: Ordered HYDROcodone-acetaminophen 10 mg-325 mg oral tablet 1 tab, Oral, every 4 hr, PRN as needed for pain, Take 1 tablet every 4-6 hours as needed for severepain. Minimize use to prepare for weaning, # 137 tab, 0 Refill(s), Pharmacy: [facility], 179, cm, 12/23/23 10:23:00 EDT, Height, 115.55, kg, 02/24/24 9:15:00 EDT, Weight Dosing Start Date: 02/24/24 Stop Date: 03/23/24 Status: Ordered HYDROcodone-acetaminophen 10 mg-325 mg oral tablet 1 tab, Oral, every 4 hr, Take 1 tablet every 4-6 hours as needed for severe pain. Minimize use to prepare for weaning, # 152 tab, 0 Refill(s), Pharmacy: [facility], 179.07, cm, 11/18/23 11:12:00 EST, Height, 119.65, kg, 12/01/23 9:53:00 EST, Weight Dosing Start Date: 12/01/23 Stop Date: 12/29/23 Status: Ordered ketoconazole 2% topical cream 1 ignacio, Topical, BID, to affected area. Anti-fungal for yeast infection., # 60 g, 0 Refill(s), Pharmacy: [facility] Start Date: 08/22/22 Stop Date: 09/19/22 Status: Ordered losartan 50 mg oral tablet 50 mg = 1 tab, Oral, Daily, # 90 tab, 3 Refill(s), Pharmacy: [facility], 179.07, cm, 12/07/23 9:04:00 EST, Height, 117.75, kg, 12/07/23 9:12:00 EST, Weight Dosing Start Date: 12/11/23 Status: Ordered loteprednol 0.5% ophthalmic gel 0 Refill(s) Start Date: 03/03/24 Status: Ordered Metoprolol Succinate ER 50 mg oral tablet, extended release 50 mg = 1 tab, Oral, Daily, # 90 tab, 3 Refill(s), Pharmacy: [facility], 180.34, cm, 07/23/23 9:23:00 EDT, Height, 117.93, kg, 09/08/23 10:25:00 EST, Weight Dosing Start Date: 09/14/23 Stop Date: 09/08/24 Status: Ordered Narcan 4 mg/0.1 mL nasal spray 1 sprays, Nasal, Once, PRN other (see comment), may repeat every 2 to 3 minutes until patient responds, # 2 EA, 0 Refill(s), Pharmacy: [facility] Start Date: 09/25/22 Status: Ordered sildenafil 100 mg oral tablet 1 tab, Oral, Daily, # 10 tab, 1 Refill(s), Pharmacy: [facility], 179, cm, 12/23/23 10:23:00 EDT, Height, 115.67, kg, 12/23/23 10:25:00 EDT, Weight Dosing Start Date: 12/29/23 Stop Date: 02/27/24 Status: Ordered traZODone 50 mg oral tablet 1 tab, Oral, every night at bedtime, # 90 tab, 3 Refill(s), Pharmacy: [facility] Start Date: 03/19/23 Stop Date: 03/13/24 Status: Ordered triamcinolone 0.025% topical cream 1 ignacio, Topical, BID, PRN itching/rash, apply a thin film to affected area Steroid cream for itchingand redness., # 60 g, 0 Refill(s), Pharmacy: [facility] Start Date: 08/22/22 Stop Date: 09/05/22 Status: Ordered zolpidem 10 mg oral tablet 10 mg = 1 tab, Oral, every night at bedtime, swallow whole do not crush or chew, # 28 tab, 2 Refill(s), Pharmacy: [facility], 179, cm, 12/23/23 10:23:00 EDT, Height, [...] Range]: 1 Peripheral Pulse Rate [60-100 bpm] 78 bp m (03/03/24 9:42 AM) Blood Pressure [90-140/60-90 mmHg] 117/6 9mmHg (03/03/24 9:42 AM) Mean Arterial Pressure, Cuff [65-140 mmH g] 85 mmHg (03/03/24 9:42 AM) Weight 117.75 kg (03/03/24 9:42 AM) Weight Measured (lbs) 259.594 lb (03/03/24 9:42 AM) Weight Dosing 117.750 kg (03/03/24 9:42 AM) Height 180.34 cm (03/03/24 9:42 AM) Height/Length Measured (inches) 71 inch (03/03/24 9:42 AM) BSA Measured 2.43 m2 (03/03/24 9:42 AM) Body Mass Index 36.21 kg/m2 (03/03/24 9:42 AM) Social History Social History Type Response Tobacco Never tobacco user T obacco Use:. Sex Male Physician Outpatient Note * Anat Cross NET FRONT END DEVELOPER: PERFORM Event Display: Office Clinic Note Physician Authored Date: [id number] BRENDA JAVED Emili :1960 Age:64 years Sex:Male Visit Date:03/03/2024 Primary Care Physician: Astrid Mcdonough MD History of Present Illness Cardiac Problems: 1.Chronic Atrial fibrillation 2.Hypertension-atorvastatin 20mg, Eliquis 5mg BID, losartan 50mg, metoprolol succinate 75mg 3.Hyperlipidemia 4.TYRON ?? This is a 63-year-old gentleman that I last saw in the office on 12/07/2023 for?? atrial fibrillation, hypertension,??and hyperlipidemia.?? We??were initially trying to get him back into a normal rhythm and ordered a??stress test and echocardiogram??to see if he qualified for flecainide which were both reassuring. ??However??he was reporting 6 out of 10??chest pain and dyspnea??when he mixed up his metoprolol dose and took less than he was prescribed for 3 days??so we wanted to??rule out??coronary artery disease with a left heart catheterization.?? This showed??left main free of disease, LAD with 40% stenosis, mild diffuse in diagonal 1, left circumflex and??mild diffuse in RCA.?? We did recommend that we get him back into a normal rhythm??with a Tikosyn admission at [facility] and he was referred to this??at his last appointment.?? I did increase his atorvastatin from 20 mg to 40 mg for a more cardioprotective medication regimen??and asked him to monitor his blood pressure at home.?? He is here today to follow-up. ?? He states that he has not been sleeping well lately and have been??feeling??overall pretty crappy.?? He states that he has not slept well for years??but for a couple of weeks he has an even??been comfortable enough to use his CPAP at night.?? He states that he is feeling his atrial fibrillation??john ly??from anywhere??to numerous times a day to constantly.?? This is occurring with dizziness as well??that will last until he stops the activity that he is doing or stand still. ??He was seen in the ER 2 weeks ago for the dizziness??and is wearing a Zio patch today. ?? Overall he denies chest pain,??syncope, dyspnea, orthopnea, PND, and edema.?? He has been doing??yard work??with??a push and ride lawnmower as well as trimming??a couple times a week. ??He does this for about an hour and a half at a time. ??During this exercise he denies signs of ischemia such as chest pain or shortness of breath but will have??palpitations that increased with activity. ?? He is not checking??his blood pressure at home??routinely but does have an arm blood pressure cuff available to him.?? He states that he does have??a??with [facility]??for an admission for [facility] 03/09/2024. Review of Systems A complete review of systems is negative other than as noted in the history of present illness. Physical Exam Vitals & Measurements HR:??78??(Peripheral)?? BP:??117/69?? SpO2:??96%?? HT:??180.34??cm?? WT:??117.75??kg?? BMI:??36.21?? BSA:??2.43?? HEENT: Normocephalic, atraumatic Respirations: Clear to auscultation bilaterally with no wheezes rubs or rhonchi Cardiac: irregular??rate and rhythm, normal S1, S2, no murmurs gallops or rubs Abdomen: Nontender nondistended normal active bowel sounds Extremities: 2+ dorsalis pedis pulses bilaterally with no significant edema Medical Decision Making Data [place] [facility] [place]Impression atrial fibrillation on Eliquis, poorly controlled of [...] 117 ms 11/20/2023.?? Left heart catheterization at [facility].?? Left main free of disease, LAD with 40% stenosis, mild diffuse in diagonal 1, mild diffuse in left circumflex, mild diffuse in RCA.?? Nonobstructive coronary artery disease, elevated left ventricular end-diastolic pressure. 12/07/2023: EKG:Atrial fibrillation with ventricular rate of 105 bpm. :EKG:Atrial fibrillation with ventricular rate of 80 bpm, IVCD with QRS duration of 144 ms ?? 63-year-old gentleman with paroxysmal atrial fibrillation ? Atrial fibrillation:??He is in atrial fibrillation again today??and is quite symptomatic. ??We havedone??a lengthy workup??of an echocardiogram, stress test, as well as a left heart catheterization??and we recommended that he??be seen at [facility] for a [facility] admission. ??He has yet to??meet with [facility], he states that he has a consultation on 03/09/2024. ??He would prefer??to move forward with the Tikosyn admission??sooner than later??considering he is extremely symptomatic and feeling dizzy??with his palpitations.?? We discussed??that if the Tikosyn admission??does not??help his atrialfibrillation the neck step would be an ablation.?? He is properly anticoagulated and rate controlled. ?? Hypertension:??He is well-controlled here in the office but does not check his blood pressure athome. ??I did encourage him to monitor??his blood pressure at home, and if his??average??systolic reading is above 130??then we should??step and help??with this.?? I will see him again??in 5 months after he has had his??consultation and admission at [facility]. ??He knows to call with any questions or concerns in the meantime. ??Was a pleasure to see Brenda. Clinic Assessment/Plan Atrial fibrillation??I48.91 Actions: COMPLETED - [id number] Office/Outpatient Visit - Established Patient, Level 3 (20-29 min)., 03/03/24 9:02:00 EDT, Atrial fibrillation FUTURE - CV ECG Clinic, 03/02/24, Routine, Reason: Other (please specify), Order for future visit, Atrial fibrillation, ORD_SET_REQ_DT_RANGESarah's Internal Person Id FUTURE - Follow-Up Appointment Request MOY, *Est. 08/03/24 +/- 21 days, Future Order, In Approximately, [facility] COMPLETED - Follow-Up Appointment Request NCTDimitri, 03/03/24 9:40:00 EDT, In Approximately, [facility], 03/03/24 9:40:00 EDT ?? Hyperlipidemia??E78.5 ?? 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
--- OUTSIDE RECORDS SUMMARY | 2024-08-29 14:11 | XMS_ITS | Encounter Summary ---
Author Organization [facility] [place] [address] Care Team Providers Care Dental Office Assistant Name Role Phone Astrid Grier MD Primary Care Provider Reason for Visit * Reason Comments Medication Refill Encounter Details Date Type Department Care Team (Late st Contact Info) Description 05/30/2024 Refill [place] [id number] [facility] [place] [address] Social History Tobacco Use Types Packs/Day Years Used Date Smoking Tobacco: Never Smokeless Tobacco: Never Alcohol Use Standard Drinks/Week Comments Yes 23 (1 standard drink = 0.6 oz pu re alcohol) 2-3 drinks daily [facility] Inpatient Questions Answer Date Recorded Does [...] on filedocumented in this encounter Care Teams Dental Office Assistant Relationship Specialty Start Date End Date Astrid Grier MD [address] [place] [address] PCP - General Family Medicine 04/06/23 documented as of this encounter
--- OUTSIDE RECORDS SUMMARY | 2024-08-29 14:11 | XMS_ITS | Continuity of Care Document ---
Author Organization [facility] Address [address] [place] [address] Care Team Providers Care Cigar Wrapper Tender Automatic Name Role Phone Astrid Mcdonough Primary Care Physician Encounter [facility] Date(s): 07/21/23 - 07/21/23 [facility] [address] [place] [address] Encounter Diagnosis Afib(Discharge Diagnosis) - 07/21/23 Discharge Disposition: Home or Self Care Attending Physician: Anat Cross WET PRESS TENDER Referring Physician: Astrid Mcdonough MD Allergies, Adverse Reactions, Alerts No Known [...] Daily, # 90 tab, 2 Refill(s), Pharmacy: [id number] Start Date: 06/16/23 Status: Ordered Combivent Respimat CFC free 20 mcg-100 mcg/inh inhalation aerosol 1 puffs, Inhale, As Directed, # 4 g, 0 Refill(s) Start Date: 03/19/23 Status: Ordered DULoxetine 30 mg oral delayed release capsule 30 mg = 1 cap, Oral, BID, # 180 cap, 3 Refill(s), Pharmacy: [facility] Start Date: 07/11/23 Stop Date: 07/05/24 Status: Ordered Eliquis 5 mg oral tablet 5 mg = 1 tab, Oral, BID, # 180 tab, 3 Refill(s), Pharmacy: [facility] Start Date: 07/11/23 Stop Date: 07/05/24 Status: Ordered ergocalciferol 1.25 mg (50,000 intl units) oral capsule 50,000 IntlUnit = 1 cap, Oral, every 2 wk, as directed, # 7 cap, 3 Refill(s), Pharmacy: [facility] Start Date: 07/22/22 Stop Date: 07/17/23 Status: Ordered febuxostat 40 mg oral tablet 1 tab, Oral, Daily, # 90 tab, 3 Refill(s), Pharmacy: [id number] Start Date: 07/11/23 Stop Date: 07/05/24 [...] wean., # 168 tab, 0 Refill(s), Pharmacy: [facility] Start Date: 08/24/23 Stop Date: 09/21/23 Status: Ordered HYDROcodone-acetaminophen 10 mg-325 mg oral tablet 1 tab, Oral, every 4 hr, PRN as needed for pain, Take 1 tablet every 4-6 hours as needed for severepain. Recommendations to decrease to 5 tablets daily for upcoming wean., # 168 tab, 0 Refill(s), Pharmacy: [facility] Start Date: 07/27/23 Stop Date: 08/24/23 Status: Ordered hydrOXYzine hydrochloride 50 mg oral tablet 30 EA, TAKE ONE TABLET BY MOUTH EVERY DAY WITH EVENING MEAL, 0 Refill(s) Start Date: 03/19/23 Status: Ordered ketoconazole 2% topical cream 1 ignacio, Topical, BID, to affected area. Anti-fungal for yeast infection., # 60 g, 0 Refill(s), Pharmacy: [facility] Start Date: 08/22/22 Stop Date: 09/19/22 Status: Ordered losartan 50 mg oral tablet 50 mg = 1 tab, Oral, Daily, # 90 tab, 2 Refill(s), Pharmacy: [facility] Start Date: 03/19/23 Status: Ordered metoprolol succinate 25 mg oral capsule, extended release 25 mg = 1 cap, Oral, Daily, Take 25mg and 50mg for total fof 75 mg daily, # 90 cap, 0 Refill(s), Pharmacy: [facility] Start Date: 07/11/23 Status: Ordered Metoprolol Succinate ER 50 mg oral tablet, extended release 50 mg = 1 tab, Oral, Daily, # 90 tab, 3 Refill(s), Pharmacy: [facility] Start Date: 07/22/22 Stop Date: 07/17/23 Status: Ordered Narcan 4 mg/0.1 mL nasal spray 1 sprays, Nasal, Once, PRN other (see comment), may repeat every 2 to 3 minutes until patient responds, # 2 EA, 0 Refill(s), Pharmacy: [facility] Start Date: 09/25/22 Status: Ordered sildenafil 100 mg oral tablet 1 tab, Oral, Daily, # 10 tab, 11 Refill(s), Pharmacy: [facility] Start Date: 07/22/22 Stop Date: 07/17/23 Status: Ordered traZODone 50 mg oral tablet 1 tab, Oral, every night at bedtime, # 90 tab, 3 Refill(s), Pharmacy: [facility] Start Date: 03/19/23 Stop Date: 03/13/24 Status: Ordered triamcinolone 0.025% topical cream 1 ignacio, Topical, BID, PRN itching/rash, apply a thin film to affected area Steroid cream for itchingand redness., # 60 g, 0 Refill(s), Pharmacy: [facility] Start Date: 08/22/22 Stop Date: 09/05/22 Status: Ordered triamcinolone 0.5% topical ointment 1 ignacio, Topical, BID, # 430 g, 0 Refill(s), Pharmacy: [facility] Start Date: 12/25/22 Stop Date: 01/08/23 Status: Ordered zolpidem 10 mg oral tablet 10 mg = 1 tab, Oral, every night at bedtime, swallow whole do not crush or chew, # 28 tab, 3 Refill(s), Pharmacy: [id number] Start Date: 03/25/23 Stop Date: 07/15/23 [...] Range]: 1 Peripheral Pulse Rate [60-100 bpm] 71 bp m (07/21/23 10:34 AM) Blood Pressure [90-140/60-90 mmHg] 121/7 7mmHg (07/21/23 10:34 AM) Weight 113.40 kg (07/21/23 10:34 AM) Weight Measured (lbs) 250.004 lb (07/21/23 10:34 AM) Height 180.34 cm (07/21/23 10:34 AM) Height/Length Measured (inches) 71 inch (07/21/23 10:34 AM) BSA Measured 2.38 m2 (07/21/23 10:34 AM) Body Mass Index 34.87 kg/m2 (07/21/23 10:34 AM) Social History Social History Type Response Tobacco Never tobacco user T obacco Use:. Sex Male Cardiology * Ever Esqueda RN: PERFORM Event Display: Cardiac Services Authored Date: Physician Outpatient Note * Anat Cross WET PRESS TENDER: PERFORM Event Display: Office Clinic Note Physician Authored Date: [id number] BRENDA JAVED :1960 Age:63 years Sex:Male Visit Date:07/21/2023 Primary Care Physician: Astrid Mcdonough MD History of Present Illness Cardiac Problems: 1.Chronic Atrial fibrillation 2.Hypertension-atorvastatin 20mg, Eliquis 5mg BID, losartan 50mg, metoprolol succinate 75mg 3.Hyperlipidemia 4.TYRON ? This is a 63-year-old gentleman that is new to the office and referred by his PCP for increased symptoms??related to his rate controlled chronic??atrial fibrillation.?? He is maintained on??Eliquis 5mg twice daily and metoprolol succinate 50 mg??originally, but in??June he reported to his PCPhe is??able to feel??when he is having rhythm irregularities more often.?? A recent Holter monitor showed A-fib with adequate rate control.?? PCP increase metoprolol from 50 mg to 75 mg daily??and tocontinue Eliquis.?? Hyperlipidemia is a new??diagnosis??due to his elevated ASCVD risk, he was recently started on atorvastatin 20 mg. Zio showed Atrial fibrillation (90% burden, longest continuous period of 12 days) with rare PACs and rare PVCs over 14-day monitoring period.?? There were no significant arrhythmias other than AF.?? Average heart rate with AF was less than 100 bpm, with minimal variability.?? Symptoms correlated with continuous AF at normal average rate.?? Paroxysmal but predominant AF, with adequate rate control.He is maintained on atorvastatin 20mg, Eliquis 5mg BID, [id number], metoprolol succinate 75mg. ?? He states that he has been getting??lightheaded frequently when he??gets up, this is increased withheat, or with diaphoresis.?? He states he is feeling??a faster heartbeat??most of the day every day, with getting up and starting to move around, he will need to pause before??taking off.?? This faster heartbeats does make him lightheaded as well??for a few seconds.?? He notes that??he has a??skin twitch??in the center of his chest mainly at night, without radiation/diaphoresis/nausea/shortness of breath.?? He reports that its not really a pain but is more just annoying.?? This last for fewseconds. ?? He reports that his breathing is usually all right but it really depends on what he is doing. ??If he goes up a few flights of stairs or is throughout his firewood for??more than an hour he does get short of breath.?? He denies??syncope, and edema.?? He is currently??walking about 1/4 mile??every da y, this takes him about 10 minutes??to walk. ??He states that he can walk longer??he just does not.?? He is also taking care of his firewood??currently.?? He reports that he does get short of breath??with this exercise??and lightheaded at times,??but no chest pain.?? He states that??the lightheadedness??and palpitations are worse with heat, and that he has been more diaphoretic and heat than he used to be??when he was younger. ?? He does not take his blood pressure at all at home but after his recent sleep study he was askedto start doing so, he just has not done so. ??He has an arm blood pressure cuff at home??and he will start to do this. Review of Systems A complete review of systems is negative other than as noted in the history of present illness. Physical Exam Vitals & Measurements HR:??71??(Peripheral)?? BP:??121/77?? SpO2:??99%?? HT:??180.34??cm?? WT:??113.40??kg?? BMI:??34.87?? BSA:??2.38?? HEENT: Normocephalic, atraumatic Respirations: Clear to auscultation bilaterally with no wheezes rubs or rhonchi Cardiac: Regular rate and rhythm, normal S1, S2, no murmurs gallops or rubs Abdomen: Nontender nondistended normal active bowel sounds Extremities: 2+ dorsalis pedis pulses bilaterally with no significant edema Medical Decision Making Data [place] [facility] [place] Eliquis, poorly controlled of [...] ms.?? Minimal ST depression in anterolateral leads. ?? 63-year-old gentleman with paroxysmal atrial fibrillation ?? Atrial fibrillation:??He is currently??symptomatic??daily??reporting palpitations, lightheadedness.??We would like to get him back into??sinus rhythm with an antiarrhythmic such as flecainide, however??we are on??treatment at this point??if there are any contraindications for flecainide??such as coronary artery disease or??valve disease.?? I am ordering a stress test and echocardiogram??today todetermine if??there are any contraindications for flecainide.?? Our next??step would??be to??trial an antiarrhythmic,??if there is no CAD or??valve disease then??we can try flecainide??for a month??then cardiovert if he is not in sinus rhythm, however if he does have coronary artery disease??then we can try??sotalol or Tikosyn. ??We discussed this today. ??I will see him again in 3 months to go over??the results of his stress test and echocardiogram.?? He felt like he could walk on a treadmill??with ease so a treadmill stress test was ordered today. ?? Hypertension:??His blood pressure is well controlled today in the office, but he does not take his blood pressure readings at home. ??I encouraged him to start doing so??and we can go over the averages at her next appointment.?? I will see him in 3 months to go over the results of his stress test and echocardiogram. ??He understands that he can call in with any questions or concerns??prior to that 3-month??appointment. ?? It was a pleasure to meet Brenda. Clinic Assessment/Plan Afib??I48.91 Actions: COMPLETED - 89471 Office/Outpatient Visit - Established Patient, Level 4 (30-39 min)., 07/21/23 10:32:00 EDT, Afib FUTURE - Cardiac Stress Test [facility], 07/21/23, Order for future visit, Afib FUTURE - Echocardiogram Complete, 07/21/23, Other, Please Specify, Order for future visit, Afib FUTURE - Follow-Up Appointment Request [facility], *Est. 10/21/23 +/- 21 days, Future Order, In [facility] ?? Problem List/Past Medical History Ongoing Adenomatous [...] until patient responds ?? Unchanged Other Prescription ([facility] [place] 90 EA, TAKE ONE TABLET BY [...] (Tdap) adult/adol 06/21/2012 Recorded Electronically Signed on 07/21/23 11:16 AM Anat Cross NP Patient Care team information Care Team Personnel Name: Astrid Mcdonough MD Position: Physician Member Role: Primary Care Physician Address: Address: [address] [place] [id number] [place] Care Team Related Persons Name: VADIM COSTA
--- OUTSIDE RECORDS SUMMARY | 2024-08-29 14:11 | XMS_ITS | Continuity of Care Document ---
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 Name Role Phone Astrid Mcdonough Primary Care Physician [facility] Date(s[facility] 12/23/23 - 12/23/23 [facility] [address] [place] [address] Encounter Diagnosis Obstructive sleep apnea(Discharge Diagnosis) - 12/23/23 Nocturnal hypoxemia(Discharge Diagnosis) - 12/23/23 Discharge Disposition: Home or Self Care Attending Physician: Arely Hanley NP Allergies, Adverse Reactions, Alerts No Known Medication Allergies Substance Reaction Severity Status allopurinol Skin rash Unknown Active ketoconazole 1 Skin rash Unknown Active 1patient states the rash was from allopurinol not this, and he has used it without issue.%0ALast modified by Alysia Alcaraz 12-24-2020, 08:31 Assessment and Plan Extracted from: Title:Clinic - Office Visit Note Author:Arely Campbell i, NP Date:12/23/23 1.??Obstructive sleep apnea? ?G47.33 The patient is a pleasant 63-year-old male who follows up for auto CPAP compliance??and CPAP pressure change. ??His CPAP pressure was changed at his last office visit to auto CPAP 6 to 12 cm for patient comfort??and based on his median and 95th percentile CPAP pressure.?? The patient is tolerating pressure change, denies any aerophagia or air hunger. ??He does note mask leakage however he is due for mask cushion and he is encouraged to??stop by his DME to replace his mask cushion.?? Overall he feels he is benefiting from CPAP therapy he notes that he is able to stay up longer??in the evening, has more energy during the day.?? He notes he is leaving for [place] for 3 weeks??looking forward to his vacation. ?? Download data reviewed and shows excellent compliance, 80%??and excellent reduction in AHI 3.1/h. ??Continue current pressures at auto CPAP 6 to 12 cm H2O??as patient is benefiting from CPAP treatment. ??He has improved quality sleep??and daytime energy.?? Given that he had significant??nocturnal hypoxemia on his initial PSG??and even though??his??TYRON appears to be??adequately treated on current CPAP settings,??recommend??titration PSG to determine ideal??CPAP pressure that not only eliminates all of his disordered breathing??but also??to ensure that his nocturnal hypoxemia is adequately treated. ??Today I discussed with the patient what to expect on the night of his titration study.?? He does continue to take both Ambien 10 mg and trazodone 50 mg at bedtime and plans to bring those medications with them on the night of his sleep study. ? PSG Instructions:?Pay attention to mask fit and refit as needed.??Try to find optimal pressure for both lateral and supine position sleep, especially Supine REM sleep. Document medications used on night of PSG.??If hypoxemia persist after respiratory events are resolved on CPAP, switch to BIPAP starting with pressure support of 4cm, increase pressure support up to 10cm if doing so helps with oxygen saturation.??patient takes ambien 10 mg and trazadone 50 mg QHS 2.??Nocturnal hypoxemia??G47.34 Significant nocturnal hypoxemia,??161.0 minutes spent with SpO2 less than or equal to 88% on Room Air.?? Titration PSG ordered see above I provided greater than??30??minutes in the care of this patient, more than half the time was spent in [id number] counseling. ?with comorbidities of ?? Afib, chronic back pain, HTN, rheumatoid arthritis, chronic insomnia (ambien 10mg, trazodone 50mg), obesity, hx of Lyme disease, HLD, chronic pain on Hydrocodone, asthma ? Clinical Data Reviewed: Early Sleepiness Scale:??11/04 ?? Machine Download Data:??Resmed AirSense 11 Auto CPAP?? PAP Settings: ?? Auto CPAP?6 to 12??CmH2O, please note download data does not reflect current pressure change done in office last week Date Range: ?11/22/23 - 12/20/22 Days with Usage >=4 hours: 80%? Avg Usage per Day Used: ??6hr 21min Mean/Median Pressure: ?7.8 90th-tile/95th-tile Pressure: ??11.1? Leak:?0.0/6.7 Avg Treatment ??AHI: ??3.1/hr ? Sleep Clinical Timeline:? 11/03/2011: Diagnostic PSG. [...] restless sleep, changes to mood, ESS 05/04, [place] Questionnaire 3 out of 3. Patient is [...] now being followed by Anat LEDESMA at [facility] Card[facility]. ?? 11/18/2023:??NEW CPAP user f2f visit. Adjusted pressures in office to auto CPAP 6 to 12cm H20, doing??very well acclimating to CPAP. Machine settings reviewed in office, education done. ? 12/23/2023: ?Patient continues to tolerate CPAP pressure change continue [...] and nocturnal hypoxemia. ??He is leaving for [place] and will be away for 3 weeks??plans to hopefully have his titration study scheduled sometime after that. ??He continues to take??hydrocodone qAM, Ambien 10mg and Trazodone 50mg at bedtime.?? History of A-fib, following at [facility] [place] and [facility]. ??Had a recent appointment at [facility] [place] to determine whether or not he is a candidate for cardioversion??versus medication. ? Current Mask: Airtouch F20 Medium DME: [facility] ? Today's Assessment and Plan: See above ?? Follow up: 2 months or??sooner if needed. ? Future Appointments Future Scheduled Tests Radiology* [...] Refill(s), Pharmacy: [id number] Start Date: 07/11/23 Stop Date: 07/05/24 Status: Ordered Eliquis 5 mg oral tablet 5 mg = 1 tab, Oral, BID, # 180 tab, 3 Refill(s), Pharmacy: [facility], 180.34, cm, 07/23/23 9:23:00 EDT, Height, 117.93, kg, 09/08/23 10:25:00 EST, Weight Dosing Start Date: 10/22/23 Stop Date: 10/16/24 Status: Ordered ergocalciferol 1.25 mg (50,000 intl units) oral capsule 50,000 IntlUnit = 1 cap, Oral, every 2 wk, as directed, # 7 cap, 3 Refill(s), Pharmacy: [facility] Start [...] wean., # 168 tab, 0 Refill(s), Pharmacy: [facility], 180.34, cm, 07/23/23 9:23:00 EDT, Height, 117.93, kg, 09/08/23 10:25:00 EST, Weight Dosing Start Date: 10/22/23 Stop Date: 11/19/23 Status: Ordered HYDROcodone-acetaminophen 10 mg-325 mg oral tablet 1 tab, Oral, every 4 hr, PRN as needed for pain, Take 1 tablet every 4-6 hours as needed for severepain. Minimize use to prepare for weaning, # 152 tab, 0 Refill(s), Pharmacy: [facility], 179.07, cm, 11/18/23 11:12:00 EST, Height, 119.65, kg, 12/01/23 9:53:00 EST, Weight Dosing Start Date: 12/01/23 Stop Date: 12/29/23 Status: Ordered HYDROcodone-acetaminophen 10 mg-325 mg oral tablet 1 tab, Oral, every 4 hr, PRN as needed for pain, Take 1 tablet every 4-6 hours as needed for severepain. Minimize use to prepare for weaning, # 152 tab, 0 Refill(s), Pharmacy: [facility], 179.07, cm, 11/18/23 11:12:00 EST, Height, 119.65, kg, 12/01/23 9:53:00 EST, Weight Dosing Start Date: 12/01/23 Stop Date: 12/29/23 Status: Ordered HYDROcodone-acetaminophen 10 mg-325 mg oral tablet 1 tab, Oral, every 4 hr, Take 1 tablet every 4-6 hours as needed for severe pain. Minimize use to prepare for weaning, # 152 tab, 0 Refill(s), Pharmacy: [facility], 179.07, cm, 11/18/23 11:12:00 EST, Height, 119.65, kg, 12/01/23 9:53:00 EST, Weight Dosing Start Date: 12/01/23 Stop Date: 12/29/23 Status: Ordered ketoconazole 2% topical cream 1 ignacio, Topical, BID, to affected area. Anti-fungal for yeast infection., # 60 g, 0 Refill(s), Pharmacy: [facility] Start Date: 08/22/22 Stop Date: 09/19/22 Status: Ordered losartan 50 mg oral tablet 50 mg = 1 tab, Oral, Daily, # 90 tab, 3 Refill(s), Pharmacy: [facility], 179.07, cm, 12/07/23 9:04:00 EST, Height, 117.75, kg, 12/07/23 9:12:00 EST, Weight Dosing Start Date: 12/11/23 Status: Ordered Metoprolol Succinate ER 50 mg oral tablet, extended release 50 mg = 1 tab, Oral, Daily, # 90 tab, 3 Refill(s), Pharmacy: [facility], 180.34, cm, 07/23/23 9:23:00 EDT, Height, 117.93, kg, 09/08/23 10:25:00 EST, Weight Dosing Start Date: 09/14/23 Stop Date: 09/08/24 Status: Ordered Narcan 4 mg/0.1 mL nasal spray 1 sprays, Nasal, Once, PRN other (see comment), may repeat every 2 to 3 minutes until patient responds, # 2 EA, 0 Refill(s), Pharmacy: [facility] Start Date: 09/25/22 Status: Ordered sildenafil 100 mg oral tablet 1 tab, Oral, Daily, # 10 tab, 3 Refill(s), Pharmacy: [facility], 180.34, cm, 07/23/23 9:23:00 EDT, Height Start Date: 08/26/23 Stop Date: 12/24/23 Status: Ordered traZODone 50 mg oral tablet 1 tab, Oral, every night at bedtime, # 90 tab, 3 Refill(s), Pharmacy: [facility] Start Date: 03/19/23 Stop Date: 03/13/24 Status: Ordered triamcinolone 0.025% topical cream 1 ignacio, Topical, BID, PRN itching/rash, apply a thin film to affected area Steroid cream for itchingand redness., # 60 g, 0 Refill(s), Pharmacy: [facility] Start Date: 08/22/22 Stop Date: 09/05/22 Status: Ordered zolpidem 10 mg oral tablet 10 mg = 1 tab, Oral, every night at bedtime, swallow whole do not crush or chew, # 28 tab, 2 Refill(s), Pharmacy: [facility], 179.07, cm, 11/18/23 11:12:00 EST, Height, [...] Range]: 1 Peripheral Pulse Rate [60-100 bpm] 95 bp m (12/23/23 10:23 AM) Blood Pressure [90-140/60-90 mmHg] 141/8 6mmHg *HI* (12/23/23 10:23 AM) Mean Arterial Pressure, Cuff [65-140 mmH g] 104 mmHg (12/23/23 10:23 AM) Weight 115.67 kg (12/23/23 10:23 AM) Weight Measured (lbs) 255.008 lb (12/23/23 10:23 AM) Weight Dosing 115.670 kg (12/23/23 10:23 AM) Height 179 cm (12/23/23 10:23 AM) Height/Length Measured (inches) 70.47 in ch (12/23/23 10:23 AM) BSA Measured 2.4 m2 (12/23/23 10:23 AM) Body Mass Index 36.1 kg/m2 (12/23/23 10:23 AM) Social History Social History Type Response Tobacco Never tobacco user T obacco Use:. Sex Male Progress note * Jonas Bailey M: PERFORM Event Display: Progress Note - Physician Authored Date: [id number] Physician Outpatient Note * Arely Hanley TREAD BOOKER: PERFORM Event Display: Office Clinic Note Physician Authored Date: [id number] BRENDA JAVED :1960 Age:63 years Sex:Male Visit Date:12/23/2023 Primary Care Physician: Astrid Mcdonough MD Chief Complaint follow up cpap pressure change History of Present Illness The patient is a pleasant 63-year-old male who follows up for CPAP pressure change. ??At his last office visit his CPAP was adjusted to auto CPAP 6-12 in office. ?? Today: AirSense 11 auto CPAP 6??to 12 cm H2O, mask:??AirTouch??medium Patient reports that tolerating cpap pressure change. ??Continues to use AirTouch medium with good fit although he does note increased leakage, however is??due for mask cushion change.?? He is maintaining his pap supplies as recommended.?? Overall he feels that he is benefiting from his CPAP machine he notes that he is able to stay up longer??at night. Follow up cardiac visit at [facility] [place] for Afib since his last office visit to determine??whether he is eligible for??cardioversion or??med??medication to help him convert to sinus rhythm. Review of Systems A 10-point REVIEW OF SYSTEM was obtained and reviewed, includes CONSTITUTIONAL, EYES, NOSE, THROAT,RESPIRATORY, HEART, GASTROINTESTINAL, UROLOGIC, MUSCULOSKELETAL, PSYCHIATRY, SKIN systems. Pertinent symptoms are discussed in history, otherwise negative. Physical Exam Vitals & Measurements HR:??95??(Peripheral)?? BP:??141/86?? SpO2:??97%?? HT:??179??cm?? WT:??115.67??kg?? BMI:??36.1?? BSA:??2.4?? General:??well appearing, appearing stated age, no acute distress,??obesebuild HEENT: atraumatic skull, anicteric RESPIRATORY: quiet respiration, able to speak in full sentences without dyspnea, no accessory muscle use SKIN: no facial skin rash, no facial skin lesions PSYCHIATRIC: well groomed, fluent speech, good insight, linear thought process, good eye contact,balanced??affect NEUROLOGIC: alert, oriented, symmetric facial expression Clinic Assessment/Plan 1.??Obstructive sleep apnea??G47.33 The patient is a pleasant 63-year-old male who follows up for auto CPAP compliance??and CPAP pressure change. ??His CPAP pressure was changed at his last office visit to auto CPAP 6 to 12 cm for patient comfort??and based on his median and 95th percentile CPAP pressure.?? The patient is tolerating pressure change, denies any aerophagia or air hunger. ??He does note mask leakage however he is due for mask cushion and he is encouraged to??stop by his DME to replace his mask cushion.?? Overall he feels he is benefiting from CPAP therapy he notes that he is able to stay up longer??in the evening,has more energy during the day.?? He notes he is leaving for [place] for 3 weeks??looking forward to his vacation. ?? Download data reviewed and shows excellent compliance, 80%??and excellent reduction in AHI 3.1/h. ??Continue current pressures at auto CPAP 6 to 12 cm H2O??as patient is benefiting from CPAP treatment. ??He has improved quality sleep??and daytime energy.?? Given that he had significant??nocturnal hypoxemia on his initial PSG??and even though??his??TYRON appears to be??adequately treated on current CPAP settings,??recommend??titration PSG to determine ideal??CPAP pressure that not only eliminates all of his disordered breathing??but also??to ensure that his nocturnal hypoxemia is adequately treated. ??Today I discussed with the patient what to expect on the night of his titration study.?? He does continue to take both Ambien 10 mg and trazodone 50 mg at bedtime and plans to bring those medications with them on the night of his sleep study. ? PSG Instructions:??Pay attention to mask fit and refit as needed.??Try to find optimal pressure for both lateral and supine position sleep, especially Supine REM sleep. Document medications used on night of PSG.??If hypoxemia persist after respiratory events are resolved on CPAP, switch to BIPAPstarting with pressure support of 4cm, increase pressure support up to 10cm if doing so helps with oxygen saturation.??patient takes ambien 10 mg and trazadone 50 mg QHS 2.??Nocturnal hypoxemia??G47.34 Significant nocturnal hypoxemia,??161.0 minutes spent with SpO2 less than or equal to 88% on Room Air.?? Titration PSG ordered see above I provided greater than??30??minutes in the care of this patient, more than half the time was spentin [id number] counseling. ?with comorbidities of Afib, chronic back pain, HTN, rheumatoid arthritis, chronic insomnia (ambien 10mg, trazodone 50mg), obesity, hx of Lyme disease, HLD, chronic pain on Hydrocodone, asthma ? Clinical Data Reviewed: Early Sleepiness Scale:??11/04 ?? Machine Download Data:??Resmed AirSense 11 Auto CPAP?? PAP Settings: ??Auto CPAP?6 to 12??CmH2O, please note download data does not reflect current pressure change done in office last week Date Range: ?11/22/23 - 12/20/22 Days with Usage >=4 hours: 80%? Avg Usage per Day Used: ??6hr 21min Mean/Median Pressure: ?7.8 90th-tile/95th-tile Pressure: ??11.1?? Leak:?0.0/6.7 Avg Treatment ??AHI: ??3.1/hr ? Sleep Clinical Timeline:? 11/03/2011: Diagnostic PSG. [...] restless sleep, changes to mood, ESS 05/04, [place] Questionnaire 3 out of 3. Patient is [...] now being followed by Anat LEDESMA at [facility] Cardiology [facility]. ?? 11/18/2023:??NEW CPAP user f2f [...] and nocturnal hypoxemia. ??He is leaving for [place] and will be away for 3 weeks??plans to hopefully have his titration study scheduled sometime after that. ??He continues to take??hydrocodone qAM, Ambien 10mg and Trazodone 50mg at bedtime.?? History of A-fib, following at [facility] [place] and [facility]. ??Had a recent appointment at [facility] [place] [place] to determine whether or not he is a candidate for cardioversion??versus medication. ?? Current Mask: Airtouch F20 Medium DME: [facility] ? Today's Assessment and Plan: See above ?? Follow up: 2 months or??sooner if needed. Problem List/Past Medical History Ongoing Adenomatous polyp [...] 2 times a day Duration: 90 Days Contact prescribing physician if questions or concerns ?? Unchanged atorvastatin (atorvastatin 40 mg oral tablet) 1 tab Oral (given by mouth) Every day Contact prescribing physician if questions or concerns ?? Unchanged DULoxetine (DULoxetine 30 mg oral delayed release capsule) 1 Capsules Oral (given by mouth) 2 times a day Duration: 90 Days Contact prescribing physician if questions or concerns ?? Unchanged ergocalciferol (ergocalciferol 1.25 mg (50,000 intl units) oral capsule) 1 Capsules Oral (given by mouth) Every other week Duration: 90 Days as directed Contact prescribing physician if questions or concerns ?? Unchanged febuxostat (febuxostat 40 mg oral tablet) 1 tab Oral (given by mouth) Every day Duration: 90 Days Contact prescribing physician if questions or concerns ?? Unchanged HYDROcodone-acetaminophen (HYDROcodone-acetaminophen 10 mg-325 mg oral tablet) 1 tab Oral (given by mouth) Every 4 hours as needed for as needed for pain Duration: 28 Days Take 1 tablet every 4-6 hours as needed for severe pain. Recommendations to decrease to 5 tablets daily for upcoming wean. Contact prescribing physician if questions or concerns ?? Unchanged HYDROcodone-acetaminophen (HYDROcodone-acetaminophen 10 mg-325 mg oral tablet) 1 tab Oral (given by mouth) Every 4 hours as needed for as needed for pain Degeneration of cervical intervertebral disc Chronic pain Duration: 28 Days Take 1 tablet every 4-6 hours as needed for severe pain. ??Minimize use to prepare for weaning Contact prescribing physician if questions or concerns ?? Unchanged HYDROcodone-acetaminophen (HYDROcodone-acetaminophen 10 mg-325 mg oral tablet) 1 tab Oral (given by mouth) Every 4 hours as needed for as needed for pain Chronic pain Degeneration of cervical intervertebral disc Duration: 28 Days Take 1 tablet every 4-6 hours as needed for severe pain. ??Minimize use to prepare for weaning Contact prescribing physician if questions or concerns ?? Unchanged HYDROcodone-acetaminophen (HYDROcodone-acetaminophen 10 mg-325 mg oral tablet) 1 tab Oral (given by mouth) Every 4 hours Duration: 28 Days Take 1 tablet every 4-6 hours as needed for severe pain. ??Minimize use to prepare for weaning Contact prescribing physician if questions or concerns ?? Unchanged ipratropium-albuterol (Combivent Respimat CFC free 20 mcg-100 mcg/ inh inhalation aerosol) 1 Puffs Inhale (breathe in) As Directed Contact prescribing physician if questions or concerns ?? Unchanged ketoconazole topical (ketoconazole 2% topical cream) 1 Application Topical (on the skin) 2 times a day Duration: 28 Days to affected area. ??Anti-fungal for yeast infection. Contact prescribing physician if questions or concerns ?? Unchanged losartan (losartan 50 mg oral tablet) 1 tab Oral (given by mouth) Every day Long-term use of high-risk medication Encounter for chronic pain management Arthritis Herniation of lumbar intervertebral disc with sciatica Degeneration of cervical intervertebral disc Contact prescribing physician if questions or concerns ?? Unchanged metoprolol (Metoprolol Succinate ER 50 mg oral tablet, extended release) 1 tab Oral (given by mouth) Every day Hypertensive disorder Duration: 90 Days Contact prescribing physician if questions or concerns ?? Unchanged naloxone (Narcan 4 mg/ 0.1 mL nasal spray) 1 Sprays Nasal (into the nose) Once as needed for other (see comment) Respiratory suppression may repeat every 2 to 3 minutes until patient responds Contact prescribing physician if questions or concerns ?? Unchanged Other Prescription (AAA - Misc Prescription) 90 EA, TAKE ONE TABLET BY MOUTH EVERY DAY Contact prescribing physician if questions or concerns ?? Unchanged sildenafil (sildenafil 100 mg oral tablet) 1 tab Oral (given by mouth) Every day Duration: 30 Days Contact prescribing physician if questions or concerns ?? Unchanged traZODone (traZODone 50 mg oral tablet) 1 tab Oral (given by mouth) Every night at bedtime Duration: 90 Days Contact prescribing physician if questions or concerns ?? Unchanged triamcinolone topical (triamcinolone 0.025% topical cream) 1 Application Topical (on the skin) 2 times a day as needed for itching/rash Duration: 14 Days apply a thin film to affected area Steroid cream for itching and redness. Contact prescribing physician if questions or concerns ?? Unchanged zolpidem (zolpidem 10 mg oral tablet) 1 tab Oral (given by mouth) Every night at bedtime Duration: 28 Days swallow whole do not crush or chew Contact prescribing physician if questions or concerns ?? Allergies No Known Medication Allergies allopurinol??(Skin [...] (Tdap) adult/adol 06/21/2012 Recorded Electronically Signed on 12/23/23 11:19 AM [place] [facility] Patient Care team information Care Team Personnel Name: Astrid Mcdonough MD Position: Physician Member Role: Informed Provider Address: Address: [address] [place] [address] [place] [address] Care Team Related Persons Name: VADIM COSTA
--- OUTSIDE RECORDS SUMMARY | 2024-08-29 14:11 | XMS_ITS | Encounter Summary ---
Author Organization [facility] [place] [address] Care Team Providers Care Basin Cleaner Name Role Phone Astrid Grier MD Primary Care Provider Reason for Visit * Auth/Cert (Routine) Specialty Diagnoses / Procedures Referred By Contac t Referred To Contact Diagnoses Chronic atrial fibrillation, unspecified Procedures PRO INITIAL INPT/OBS HIGH 75 MIN Anay Rodriguez MD [facility] [place] [address] [facility] Referral ID Status Reason Start Date Expiration Date Visits Re quested Visits Authorized [id number] 1 1 Encounter Details Date Type Department Care Team (Latest Contact Info) Description 04/19/2024 12:08 PM EDT - 04/21/2024 12:04 PM EDT Hospital Encounter Heart and Vascular Unit Level 3 [place] [id number] Anay Rodriguez MD [facility] [place] [address] PAF (paroxysmal atrial fibrillation); Chronic atrial fibrillation Discharge Disposition: Home Social History Tobacco Use Types Packs/Day Years Used Date Smoking Tobacco: Never Smokeless Tobacco: Never Alcohol Use Standard Drinks/Week Comments Yes 23 (1 standard drink = 0.6 oz pu re alcohol) 2-3 drinks daily [facility] Inpatient Questions Answer Date Recorded Does Anyone Try to Keep You From Having Contact with Others or Doing Things Outside Your Home? no 04/19/2024 Feels Threatened by Someone no 0 06/2024 Feels Unsafe at Home or Work/School no 04/19/2024 Physical Signs of Abuse Present no 04/19/2024 Sex and Gender Information Value Date Recorded Sex Assigned at Not on file Gender Identity Not on file Sexual Orientation Not on file documented as of this encounter Last Filed Vital Signs Vital Sign Reading Time Taken Comments Blood Pressure 136/88 04/21/2024 11:08 AM EDT Pulse 57 04/21/2024 11:08 AM EDT Temperature 36.6 ??C (97.8 ??F) 04/21/2024 1 1:08 AM EDT Respiratory Rate 16 04/21/2024 7:56 AM EDT Oxygen Saturation 96% 04/21/2024 11: 08 AM EDT Inhaled Oxygen Concentration - - Weight 114.1 kg (251 lb 9.6 oz) 04/21/2024 6:00 AM EDT Height 180.3 cm (5' 11) 04/19/2024 12: 15 PM EDT Body Mass Index 35.09 04/19/2024 12:15 PM EDT documented in this encounter Discharge Summaries * Kareem Wing PA - 04/21/2024 12:04 PM EDT Discharge Summary Patient Name: Enoc Esteban Patient Age: 64 y.o. Language: [place] Race: White Ethnicity: Not nor Admit date: 04/19/2024 Discharge date and time: 04/21/2024 1200 Attending Physician: No att. providers found Discharge Physician: Anay Rodriguez MD Follow-up Recommendations for Providers: Continue apixaban anticoagulation. NEW - dofetilide 500mcg every 12 hrs(3 doses sent to [facility] pharmacy, regular script to home pharmacy in [place] which will not have it until 04/22). EP will schedule outpatient follow up 2-3 months. Inpatient Provider Contact Information: Cardiac Electrophysiology [phone], option #3 Discharge Diagnoses (Hospital Problems) and Secondary Diagnoses (Chronic Problems): Active Hospital Problems Diagnosis PAF (paroxysmal atrial fibrillation) Resolved Hospital Problems No resolved problems to display. Active Non-Hospital Problems Diagnosis Inflammatory arthritis Muscle pain Lyme disease [...] deficiency Moderate asthma TYRON (obstructive sleep apnea) Operations/Major Procedures: Operations: none History of Presentation: 64 year old male with hx of obesity, TYRON, HTN, TIA and atrial fibrillation, anticoagulated with Apixaban 5 mg BID who was referred by Dr. Larry Reid for Dofetilide initiation. Hospital Course: He was started at 500 mcg BID with a baseline QTc in AF 432 ms. Following his first dose he converted to sinus rhythm. After his fourth dose of dofetilide 500mcg his QTc was 490ms. His fifth dose wasadministered this morning and he remains in sinus rhythm with acceptable QTc. Vital Signs at Discharge: BP: 136/88, Heart Rate: 57, Temp: 36.6 ??C (97.8 ??F), Resp: 16, BMI (Calculated): 34.86 Height: 180.3 cm (5' 11) (04/19/24 1215) Weight: 114.1 kg (251 lb 9.6 oz) (04/21/24 0600) Functional and Cognitive Status: functional; alert and oriented Admission Diagnoses: PAF (paroxysmal atrial fibrillation) [I48.0] Discharge Diagnoses: Atrialfibrillation Admission Condition: fair Indication for Admission: Atrial fibrillation Consults: none Important Studies and Lab Data: Latest Reference Range & Units 04/19/24 10:40 Sodium 135 - 145 mmol/L 139 Potassium 3.5 - 5.0 mmol/L 5.0 Chloride 98 - 107 mmol/L 101 CO2 22 - 31 mmol/L 27 Anion Gap 5 - 15 mmol/L 11 BUN 10 - 20 mg/dL 13 Creatinine 0.80 - 1.50 mg/dL 1.39 Estimated GFR >=60 mL/min/1.73 m?? 57 (L) Calcium 8.5 - 10.5 mg/dL 9.6 Magnesium 0.69 - 1.07 mmol/L 0.90 Glucose Lvl 65 - 199 mg/dL 125 (L): Data is abnormally low Treatments: Monitored antiarrythmic initiation Discharge Exam: Vital Signs: Last value Range last 12 hrs Temperature Temp: 37.2 ??C (99 ??F) Temp: [36.8 ??C (98.2 ??F)-37.2 ??C (99 ??F)] Heart Rate Heart Rate: 59 Heart Rate: [58-64] Blood Pressure BP: 135/86 BP: (115-135)/(74-86) Respiratory Rate Resp: 16 Resp: [16-17] SpO2 SpO2: 94 % SpO2: [94 %-96 %] Vitals and nursing note reviewed. Constitutional: Appearance: Normal appearance. He is obese. Cardiovascular: Rate and Rhythm: Normal rate and regular rhythm. Pulses: Normal pulses. Heart sounds: Normal heart sounds. Pulmonary: Effort: Pulmonary effort is normal. Breath sounds: Normal breath sounds. Musculoskeletal: General: Normal range of motion. Skin: General: Skin is warm and dry. Neurological: General: No focal deficit present. Mental Status: He is alert and oriented to person, place, and time. 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 What changed: medication strength when to take this 40 mg Refills: 0 Continued medications, unchanged Dose Details apixaban 5 mg tablet Commonly known as: Eliquis Take 1 tablet by mouth 2 times daily. 5 mg Refills: 0 dofetilide 500 mcg capsule Commonly known as: Tikosyn Take 1 capsule by mouth 2 times daily. 500 mcg Quantity: 3 capsule Refills: [address] capsule Commonly known as: Cymbalta Take 2 capsules by mouth nightly. 60 mg Quantity: 180 capsule Refills: 0 febuxostat 40 mg tablet Commonly known as: Uloric Take 1 tablet by mouth daily. 40 mg Quantity: 90 tablet Refills: 3 HYDROcodone-acetaminophen 10-325 mg tablet Commonly known as: [place] TAKE 2 TABLETS BY MOUTH 3 TIMES DAILY NEEDED FOR 28 DAYS Refills: 0 ipratropium-albuteroL 20-100 mcg/actuation inhaler Commonly known as: Combivent Respimat Inhale 1 puff into the lungs as needed for Wheezing. 1 puff Refills: 0 ketoconazole 2 % Cream Commonly known as: Nizoral Apply topically as needed. Refills: 0 losartan 50 mg tablet Commonly known as: Cozaar Take 1 tablet by mouth daily. 50 mg Quantity: 30 tablet Refills: 5 metoprolol succinate XL 50 mg ER 24 hr tablet Commonly known as: Toprol-XL Take 1 tablet by mouth daily. 50 mg Quantity: 90 tablet Refills: 3 naloxone 4 mg/actuation nasal spray Commonly known as: Narcan by Nasal route. Refills: 0 traZODone 50 mg tablet Commonly known as: Desyrel TAKE ONE TABLET BY MOUTH AT BEDTIME Refills: 0 triamcinolone 0.025 % Cream Commonly known as: KENALOG APPLY A THIN FILM TOPICALLY TWO TIMES A DAY NEEDED FOR ITCHING/ RASH/ REDNESS Refills: 0 Viagra 100 mg tablet TAKE 1 TABLET BY MOUTH DAILY NEEDED MAX OF 1 TABLET IN 24 HOURS Generic drug: sildenafiL Refills: 12 vitamin D 50,000 unit capsule Take 50,000 Units by mouth every 14 days. Generic drug: ergocalciferoL (vitamin D2) 50,000 Units Refills: 3 zolpidem 10 mg tablet Commonly known as: Ambien Take 10 mg by mouth nightly as needed. 10 mg Refills: 0 STOPPED Medications acetaminophen 500 mg tablet Commonly known as: Tylenol Humira Pen 40 mg/0.8 mL Pen Injector Kit Generic drug: Adalimumab hydrOXYzine 50 mg tablet Commonly known as: Atarax Smoking Status at Discharge: Social History Tobacco Use Smoking Status Never Smokeless Tobacco Never Instructions Given to Patient at Discharge: Patient Instructions Antiarrythmic Medication Instructions You have been started on a category of medication call an Anti-arrythmic - dofetilide. These medicines are typically used to control or reduce the risk of recurrence of abnormal heart rhythms. Many of these medicines are sensitive to changes electrolytes in the body(such as potassium, sodium, etc). Therefore it is recommended that blood work be obtained every six months to check electrolytes and kidney function. A 12 lead EKG is also recommended everysix months. These can be checked by your primary health provider or veterinary x ray operator if they are agreeable or by the [facility]. It is important that while taking these medicines if you develop an illness that causes vomiting ordiarrhea for more than 24 hours or if you faint that you do not take additional antiarrythmics until your blood is checked. Contact your clinician or go to the emergency department. Do not start new medications unless you consult with your healthcare provider to make sure there is no interaction. TIKOSYN?? (dofetilide) Capsules Read the Medication Guide before you start taking Tikosyn and each time you get a refill. This information does not take the place of talking with your doctor about your condition or treatment. What is the most important information I should know about Tikosyn? Tikosyn is a prescription medicine that is used to treat an irregular heartbeat (atrial fibrillation or atrial flutter). Tikosyn can cause serious side effects, including a type of abnormal heartbeat called Torsade de Pointes, which can lead to . To establish the right dose of Tikosyn, treatment with Tikosyn must be started in a hospital where your heart rate and kidney function will be checked for the first 3 days of treatment. It is important that when you go home, you take the exact dose of Tikosyn that your doctor prescribed for you. While you take Tikosyn, always watch for signs of abnormal heartbeat. Call your doctor and go to the hospital right away if you: Feel faint Become dizzy, or Have a fast heartbeat Who should not take Tikosyn? Do not take Tikosyn if you: Have an irregular heartbeat called long QT syndrome Have kidney problems or are on kidney dialysis Take any of these medicines: Cimetidine (Tagamet, Tagamet HB) Verapamil (Calan, Calan SR, Covera-HS, Isoptin, Isoptin SR, Verelan, Verelan PM, Tarka) Ketoconazole (Nizoral, Xolegel, Extina) Trimethoprim alone (Proloprim, Trimpex) or the combination of trimethoprim and sulfamethoxazole (Bactrim, Septra Sulfatrim) Prochlorperazine (Compazine, [place]) Megestrol (Megace) Dolutegravir (Tivicay) Hydrochlorothiazide alone or in combination with other medicines (Esidrix, Ezide, Hydrodiuril, Sterling-Par, Microzide, Oretic, Hyzaar) Ask your doctor if you are not sure if any of your medicines are the kind listed above. Are allergic to dofetilide in Tikosyn. See the end of this leaflet for a complete list of ingredients in Tikosyn. What should I tell my doctor before taking Tikosyn? Before taking Tikosyn, tell your doctor about all of your medical conditions including if you: Have heart problems Have kidney or liver problems Are or plan to become . Are breast-feeding or plan to breast-feed. Especially tell your doctor if you take medicines to treat: Heart problems High blood pressure Depression or other mental problems Asthma Allergies, or hay fever Skin problems Infections Ask your doctor if you are not sure about the medicines you take. Tell your doctor about all prescription and non-prescription medicines, vitamins, dietary supplements, and any natural or herbal remedies. Tikosyn and other medicines may affect each other, causing serious side effects. Know the medicines you take. Keep a list of your medicines and show it to your doctor and pharmacist when you get a new medicine. How should I take Tikosyn? Take Tikosyn exactly as your doctor tells you. Do not change your Tikosyn dose unless your doctor tells you to. Your doctor will do tests before you start and while you take Tikosyn. Do not stop taking Tikosyn until your doctor tells you to stop. If you miss a dose, just take the next dose at your regular time. Do not take 2 doses of Tikosyn at the same time. Tikosyn can be taken with or without food. If you take too much Tikosyn, call your doctor or go to the nearest hospital emergency room right away. Take your Tikosyn capsules with you to show to the doctor. What are the possible side effects of Tikosyn? Tikosyn can cause serious side effects, including a type of abnormal heartbeat called Torsade de Pointes, which can lead to . The most common side effects of Tikosyn include: Headache Chest pain Dizziness Call your doctor right away if you have signs of electrolyte imbalance: Severe diarrhea Unusual sweating Vomiting Loss of appetite Increased thirst (drinking more than usual) Tell your doctor if you have any side effects that bother you or do not go away. These are not all the possible side effects of Tikosyn. For more information, ask your doctor or pharmacist. Call your doctor for medical advice about side effects. You may report side effects to FDA 0-279-FSS-9861. How should I store Tikosyn? Store Tikosyn between 59?? to 86??F (15?? to 30??C). Keep Tikosyn away from moisture and humidity. Keep Tikosyn in a tightly closed container. Keep Tikosyn and all medicines out of the reach of children. General information about TIKOSYN Medicines are sometimes prescribed for purposes other than those listed in a Medication Guide. Do not use Tikosyn for a condition for which it was not prescribed. Do not give Tikosyn to other people, even if they have the same symptoms you have. It may harm them. This Medication Guide summarizes the most important information about TIKOSYN. If you would like more information, talk with your doctor. You can ask your doctor or pharmacist for information about TIKOSYN that is written for health professionals. For more about TIKOSYN, go to www.[employer]armac[employer] or call 8-496-KAPXMAL ( ). What are the ingredients in TIKOSYN? Active ingredient: dofetilide Inactive ingredients: Capsule fill: microcrystalline cellulose, corn starch, colloidal silicon dioxide, and magnesium stearate Capsule shell: gelatin, titanium dioxide, and FD&C Yellow 6 Imprinting ink: iron oxide black, shellac, n-butyl alcohol, isopropyl alcohol, propylene glycol, and ammonium hydroxide * Listed trademarks are the property of their respective owners. Rx only General Instructions None Discharge References/Attachments None documented in this encounter Discharge Instructions * Patient Instructions* Kareem Wing PA - 04/21/2024 11:12 AM EDT Antiarrythmic Medication Instructions You have been started on a category of medication call an Anti-arrythmic - dofetilide. These medicines are typically used to control or reduce the risk of recurrence of abnormal heart rhythms. Many of these medicines are sensitive to changes electrolytes in the body(such as potassium, sodium, etc). Therefore it is recommended that blood work be obtained every six months to check electrolytes and kidney function. A 12 lead EKG is also recommended everysix months. These can be checked by your primary health provider or veterinary x ray operator if they are agreeable or by the [facility] group. It is important that while taking these medicines if you develop an illness that causes vomiting ordiarrhea for more than 24 hours or if you faint that you do not take additional antiarrythmics until your blood is checked. Contact your clinician or go to the emergency department. Do not start new medications unless you consult with your healthcare provider to make sure there is no interaction. TIKOSYN?? (dofetilide) Capsules Read the Medication Guide before you start taking Tikosyn and each time you get a refill. This information does not take the place of talking with your doctor about your condition or treatment. What is the most important information I should know about Tikosyn? Tikosyn is a prescription medicine that is used to treat an irregular heartbeat (atrial fibrillation or atrial flutter). Tikosyn can cause serious side effects, including a type of abnormal heartbeat called Torsade de Pointes, which can lead to . To establish the right dose of Tikosyn, treatment with Tikosyn must be started in a hospital where your heart rate and kidney function will be checked for the first 3 days of treatment. It is important that when you go home, you take the exact dose of Tikosyn that your doctor prescribed for you. While you take Tikosyn, always watch for signs of abnormal heartbeat. Call your doctor and go to the hospital right away if you: Feel faint Become dizzy, or Have a fast heartbeat Who should not take Tikosyn? Do not take Tikosyn if you: Have an irregular heartbeat called long QT syndrome Have kidney problems or are on kidney dialysis Take any of these medicines: Cimetidine (Tagamet, Tagamet HB) Verapamil (Calan, Calan SR, Covera-HS, Isoptin, Isoptin SR, Verelan, Verelan PM, Tarka) Ketoconazole (Nizoral, Xolegel, Extina) Trimethoprim alone (Proloprim, Trimpex) or the combination of trimethoprim and sulfamethoxazole (Bactrim, Septra Sulfatrim) Prochlorperazine (Compazine, [place]) Megestrol (Megace) Dolutegravir (Tivicay) Hydrochlorothiazide alone or in combination with other medicines (Esidrix, Ezide, Hydrodiuril, Sterling-Par, Microzide, Oretic, Hyzaar) Ask your doctor if you are not sure if any of your medicines are the kind listed above. Are allergic to dofetilide in Tikosyn. See the end of this leaflet for a complete list of ingredients in Tikosyn. What should I tell my doctor before taking Tikosyn? Before taking Tikosyn, tell your doctor about all of your medical conditions including if you: Have heart problems Have kidney or liver problems Are or plan to become . Are breast-feeding or plan to breast-feed. Especially tell your doctor if you take medicines to treat: Heart problems High blood pressure Depression or other mental problems Asthma Allergies, or hay fever Skin problems Infections Ask your doctor if you are not sure about the medicines you take. Tell your doctor about all prescription and non-prescription medicines, vitamins, dietary supplements, and any natural or herbal remedies. Tikosyn and other medicines may affect each other, causing serious side effects. Know the medicines you take. Keep a list of your medicines and show it to your doctor and pharmacist when you get a new medicine. How should I take Tikosyn? Take Tikosyn exactly as your doctor tells you. Do not change your Tikosyn dose unless your doctor tells you to. Your doctor will do tests before you start and while you take Tikosyn. Do not stop taking Tikosyn until your doctor tells you to stop. If you miss a dose, just take the next dose at your regular time. Do not take 2 doses of Tikosyn at the same time. Tikosyn can be taken with or without food. If you take too much Tikosyn, call your doctor or go to the nearest hospital emergency room right away. Take your Tikosyn capsules with you to show to the doctor. What are the possible side effects of Tikosyn? Tikosyn can cause serious side effects, including a type of abnormal heartbeat called Torsade de Pointes, which can lead to . The most common side effects of Tikosyn include: Headache Chest pain Dizziness Call your doctor right away if you have signs of electrolyte imbalance: Severe diarrhea Unusual sweating Vomiting Loss of appetite Increased thirst (drinking more than usual) Tell your doctor if you have any side effects that bother you or do not go away. These are not all the possible side effects of Tikosyn. For more information, ask your doctor or pharmacist. Call your doctor for medical advice about side effects. You may report side effects to FDAat 8-003-UZD-3807. How should I store Tikosyn? Store Tikosyn between 59?? to 86??F (15?? to 30??C). Keep Tikosyn away from moisture and humidity. Keep Tikosyn in a tightly closed container. Keep Tikosyn and all medicines out of the reach of children. General information about TIKOSYN Medicines are sometimes prescribed for purposes other than those listed in a Medication Guide. Do not use Tikosyn for a condition for which it was not prescribed. Do not give Tikosyn to other people, even if they have the same symptoms you have. It may harm them. This Medication Guide summarizes the most important information about TIKOSYN. If you would like more information, talk with your doctor. You can ask your doctor or pharmacist for information about TIKOSYN that is written for health professionals. For more about TIKOSYN, go to www.[employer] or call 6-379-LILQJFY ( ). What are the ingredients in TIKOSYN? Active ingredient: dofetilide Inactive ingredients: Capsule fill: microcrystalline cellulose, corn starch, colloidal silicon dioxide, and magnesium stearate Capsule shell: gelatin, titanium dioxide, and FD&C Yellow 6 Imprinting ink: iron oxide black, shellac, n-butyl alcohol, isopropyl alcohol, propylene glycol, and ammonium hydroxide * Listed trademarks are the property of their respective owners. Rx only documented in this encounter Medications at Time of Discharge Medication Sig Dispensed Refills Start Date End Date atorvastatin (Lipitor) 40 mg tablet Take 1 tablet by mouth every evening. 04/21/2024 apixaban (Eliquis) 5 mg tablet Take 1 tablet by mouth 2 times daily. 04/21/2024 ketoconazole (Nizoral) 2 % Cream Apply topically as needed. DULoxetine DR (Cymbalta) [address] capsule Take 2 capsules by mouth nightly. 180 capsule 03/17/2024 triamcinolone (KENALOG) 0.025 % Cream APPLY A THIN FILM TOPICALLY TWO TIMES A DAY NEEDED FOR ITCHING/ RASH/ REDNESS 08/22/2022 naloxone (Narcan) 4 mg/actuation [place], Non-Aerosol by Nasal route. 07/22/2022 traZODone (Desyrel) 50 mg Tablet TAKE ONE TABLET BY MOUTH AT BEDTIME 10/13/2020 HYDROcodone-acetaminop hen ([place]) 10-325 mg Tablet TAKE 2 TABLETS BY MOUTH 3 TIMES DAILY NEEDED FOR 28 DAYS 04/20/2020 febuxostat (Uloric) 40 mg Tablet Take 1 tablet by mouth daily. 90 tablet 3 11/07/2019 ipratropium-albuterol (COMBIVENT RESPIMAT) 20-100 mcg/actuation Mist Inhale 1 puff into the lungs as needed for Wheezing. VITAMIN D 50,000 unit Capsule Take 50,000 Units by mouth every 14 days. 3 06/10/2019 metoprolol succinate (TOPROL-XL) 50 mg Tablet Sustained Release 24 hr Take 1 tablet by mouth daily. 90 tablet 3 07/19/2019 VIAGRA 100 mg Tablet TAKE 1 TABLET BY MOUTH DAILY NEEDED MAX OF 1 TABLET IN 24 HOURS 12 04/08/2017 losartan (COZAAR) 50 mg Tablet Take 1 tablet by mouth daily. 30 tablet 5 10/20/2016 zolpidem (AMBIEN) 10 mg Tablet Take 10 mg by mouth nightly as needed. dofetilide (Tikosyn) 500 mcg capsuleIndications:Chr onic atrial fibrillation Take 1 capsule by mouth 2 times daily. 3 capsule 04/21/2024 05/24/2024 documented as of this encounter Progress Notes * Kareem Wing PA - 04/21/2024 10:58 AM EDT Inpatient Cardiac Electrophysiology Discharge Day Note Patient Name: Enoc Esteban Service: EP Responsible Attending: Anay Rodriguez MD Reason for continued hospitalization: Atrial fibrillation; initiation of dofetilide Active Problems: Active Hospital Problems Diagnosis PAF (paroxysmal atrial fibrillation) Resolved Hospital Problems No resolved problems to display. Interval History: 64 year old male with hx of obesity, TYRON, HTN, TIA and atrial fibrillation, anticoagulated with Apixaban 5 mg BID who was referred by Dr. Larry Reid for Dofetilide initiation. He was started at 500 mcg BID with a baseline QTc in AF 432 ms. Following his first dose he converted to sinus rhythm. After his fourth dose of dofetilide 500mcg his QTc was 490ms. His fifth dose was administered this morning and he remains in sinus rhythm with acceptable QTc. Review of Systems Constitutional: Negative for chills, diaphoresis, fatigue and fever. Respiratory: Negative for chest tightness and shortness of breath. Cardiovascular: Negative for chest pain, palpitations and leg swelling. Genitourinary: Negative for dysuria and frequency. Neurological: Negative for syncope and light-headedness. Telemetry: HR: 50-60; sinus rhythm Meds: Scheduled Meds: sodium chloride 0.9 % (flush) 5 mL Intravenous BID DULoxetine DR 60 mg Oral Nightly apixaban 5 mg Oral BID febuxostat 40 mg Oral Daily losartan 50 mg Oral Daily metoprolol succinate XL 50 mg Oral Daily traZODone 50 mg Oral Nightly atorvastatin 40 mg Oral QPM Continuous Infusions: PRN Meds:sodium chloride 0.9 % (flush), lidocaine, nitroGLYcerin, zolpidem, HYDROcodone-acetaminophen Physical Exam: Vital Signs: Last value Range last 12 hrs Temperature Temp: 37.2 ??C (99 ??F) Temp: [36.8 ??C (98.2 ??F)-37.2 ??C (99 ??F)] Heart Rate Heart Rate: 59 Heart Rate: [58-64] Blood Pressure BP: 135/86 BP: (115-135)/(74-86) Respiratory Rate Resp: 16 Resp: [16-17] SpO2 SpO2: 94 % SpO2: [94 %-96 %] Physical Exam Vitals and nursing note reviewed. Constitutional: Appearance: Normal appearance. He is obese. Cardiovascular: Rate and Rhythm: Normal rate and regular rhythm. Pulses: Normal pulses. Heart sounds: Normal heart sounds. Pulmonary: Effort: Pulmonary effort is normal. Breath sounds: Normal breath sounds. Musculoskeletal: General: Normal range of motion. Skin: General: Skin is warm and dry. Neurological: General: No focal deficit present. Mental Status: He is alert and oriented to person, place, and time. Lab Comments: Recent Results (from the past 24 hour(s)) Magnesium Result Value Ref Range Magnesium 0.95 0.69 - 1.07 mmol/L Pertinent Radiographic/Diagnostic Results: 12 lead EK04/21/2024 Sinus rhythm @ 55; DE 228; QRS 76; QTc 466 Assessment: Enoc Esteban is a 64 y.o. male with PAF, admitted in afib, initiated on dofetilide 500mcg Q12, who converted to sinus rhythm following his first dose. He feels well, remains in sinus rhythmand Is stable for discharge to home. Plan Continue apixaban anticoagulation. NEW - dofetilide 500mcg every 12 hrs(3 doses sent to [facility] pharmacy, regular script to home pharmacy in [place] which will not have it until 04/22). EP will schedule outpatient follow up 2-3 months. Provider: CARMELINA Ramos EP Consult attending physician: Nikhil Rodriguez MD EP Consult positional pager #[phone](EPMD) EP Device interrogation positional pager # [phone] * Kareem Schuler PA - 04/20/2024 4:55 PM EDT Cardiac Electrophysiology Dofetilide Load Progress Note Patient: Enoc Esteban : 1960 Attending: Anay Rodriguez MD Code Status: Full Subjective: HPI: Enoc Esteban is a 64 year old male with a PMH significant for obesity, TYRON, HTN, TIA and atrialfibrillation, anticoagulated with Apixaban 5 mg BID who was referred by Dr. Larry Reid for Dofetilide initiation. He was started at 500 mcg BID with a baseline QTc in AF 432 ms. Following his first dose he converted to sinus rhythm and after his third dose of 500 mcg his QTc in sinus is 463 ms. Patient Active Problem List Diagnosis ','PAF (paroxysmal atrial fibrillation) Inflammatory arthritis Muscle pain Lyme disease Hyperlipidemia [...] - syncope, - weakness Psychiatric: - anxious Medications: STOPPED Medications acetaminophen 500 mg tablet Commonly known as: Tylenol Humira Pen 40 mg/0.8 mL Pen Injector Kit Generic drug: Adalimumab hydrOXYzine 50 mg tablet Commonly known as: Atarax UNREVIEWED medications - Discuss With Your Provider Dose atorvastatin 20 mg tablet Commonly known as: Lipitor Take 40 mg by mouth. [address] capsule Commonly known as: Cymbalta Take 2 capsules by mouth nightly. 60 mg Eliquis 5 mg tablet Resume 10 days after surgery. Generic drug: apixaban febuxostat 40 mg tablet Commonly known as: Uloric Take 1 tablet by mouth daily. 40 mg HYDROcodone-acetaminophen 10-325 mg tablet Commonly known as: [place] TAKE 2 TABLETS BY MOUTH 3 TIMES DAILY NEEDED FOR 28 DAYS ipratropium-albuteroL 20-100 mcg/actuation inhaler Commonly known as: Combivent Respimat Inhale 1 puff into the lungs as needed for Wheezing. 1 puff ketoconazole 2 % Cream Commonly known as: Nizoral Apply topically as needed. losartan 50 mg tablet Commonly known as: Cozaar Take 1 tablet by mouth daily. 50 mg metoprolol succinate XL 50 mg ER 24 hr tablet Commonly known as: Toprol-XL Take 1 tablet by mouth daily. 50 mg naloxone 4 mg/actuation nasal spray Commonly known as: Narcan by Nasal route. traZODone 50 mg tablet Commonly known as: Desyrel TAKE ONE TABLET BY MOUTH AT BEDTIME triamcinolone 0.025 % Cream Commonly known as: KENALOG APPLY A THIN FILM TOPICALLY TWO TIMES A DAY NEEDED FOR ITCHING/ RASH/ REDNESS Viagra 100 mg tablet TAKE 1 TABLET BY MOUTH DAILY NEEDED MAX OF 1 TABLET IN 24 HOURS Generic drug: sildenafiL vitamin D 50,000 unit capsule Take 50,000 Units by mouth every 14 days. Generic drug: ergocalciferoL (vitamin D2) 50,000 Units zolpidem 10 mg tablet Commonly known as: Ambien Take 10 mg by mouth nightly as needed. 10 mg Objective: Vitals: 04/20/24 0320 04/20/24 0735 04/20/24 1123 04/20/24 1630 BP: (!) 127/91 (!) 127/92 118/75 132/86 BP Location (NBP): Right arm Left arm Left arm Left arm Patient Position: Sitting Sitting Sitting Sitting Pulse: 69 67 62 61 Resp: 14 14 16 15 Temp: 36.7 ??C (98.1 ??F) 36.9 ??C (98.4 ??F) 36.8 ??C (98.3 ??F) 36.4 ??C (97.5 ??F) TempSrc: Oral Oral Oral SpO2: 98% 98% 95% 96% Physical Exam: General- No acute distress, sitting comfortably in chair HEENT- Head atraumatic, normocephalic Skin- Warm and dry Cardiovascular- Regular rate and rhythm. Lungs- Normal respiratory effort Extremities- Pulses equal bilaterally. No edema noted Neuro- A&Ox3 ECG following third dose shows sinus bradycardia 58 bpm with 1st degree block (DE 226 ms). QTc is 463 ms. Date 04/19pm m 04/20pm Dose # Baseline 1 2 3 Dose Strength 500 mcg 500 mcg 500 mcg HR (bpm) 77 69 59 58 QT (ms) 382 420 488 472 QTc (ms) 432 450 483 463 K 5.0 Mg 0.90 0.93 Estimated Creatinine Clearance: 70.5 mL/min (by Cockcroft-Gault based on SCr of 1.39 mg/dL). Assessment and Plan: Assessment: 1. 64 year old male with medical history significant for atrial fibrillation - Currently in atrial fibrillation 2. Chronic anticoagulation with Apixaban 5 mg BID 3. Initiation of Dofetilide - Calculated creatinine clearance is 70 ml/min - QTc is 463 ms following third dose - K and Mg are acceptable Plan: 1. Continue Dofetilide at current dose of 500 mcg BID 2. ECG 2hr post-dosing for QTc monitoring 3. Continue anticoagulation with Apixaban Kareem Schuler PA-c, PhD EP Consult Attending: Anay Rodriguez MD Associated attestation - Anay Rodriguez MD - 04/21/2024 7:35 AM EDT Staff addendum: I have seen and evaluated the patient, and reviewed the available medical records. I agree with the findings, physical examination, and assessment of Kareem Schuler as detailed. Aany Rodriguez MD documented in this encounter H&P Notes * Kareem Schuler PA - 04/19/2024 12:43 PM EDT Cardiac Electrophysiology H&P for Dofetilide Load Patient: Enoc Esteban : 1960 Attending: Anay Rodriguez MD Code Status: Full Subjective: HPI: Enoc Esteban is a 64 year old male with a PMH significant for obesity, TYRON, HTN, TIA and atrialfibrillation, anticoagulated with Apixaban 5 mg BID who was referred by Dr. Larry Reid and presents for drug load admission. Enoc reports that he has been dealing with AF for several years and for the last couple of years has been significantly symptomatic. His symptoms include light-headedness (he fell a couple of months ago), palpitations, SOB and the feeling that his legs are very heavy and sluggish. He presents today in AF with normal ventricular rates and only feels sluggish. Enoc is followed by Anat Cross NP at [facility] who saw him on 12/07/23 complaining of symptomatic AF with dizziness and MARTINEZ. He wore a Ziopatch last April that showed a 90% burden of AF with an average heart rate <100 bpm. He has no history of cardioversions, ablations or previous use of antiarrhythmic medications. Patient Active Problem List Diagnosis ','PAF (paroxysmal atrial fibrillation) Inflammatory arthritis Muscle pain Lyme disease Hyperlipidemia [...] asthma TYRON (obstructive sleep apnea) ROS: Constitutional: + fatigue, - fever, - chills Respiratory: - shortness of breath, - cough, - apnea, - wheezing Cardiovascular: - chest pain, - palpitations, - unusual rates Gastrointestinal: - nausea, - vomiting, - abdominal pain, - diarrhea Neurological: - lightheadedness, - dizziness, - syncope, - weakness Psychiatric: - anxious Medications: Dose atorvastatin 20 mg tablet Commonly known as: Lipitor Take 40 mg by mouth. [address] capsule Commonly known as: Cymbalta Take 2 capsules by mouth nightly. 60 mg Eliquis 5 mg tablet Resume 10 days after surgery. Generic drug: apixaban febuxostat 40 mg tablet Commonly known as: Uloric Take 1 tablet by mouth daily. 40 mg HYDROcodone-acetaminophen 10-325 mg tablet Commonly known as: [place] TAKE 2 TABLETS BY MOUTH 3 TIMES DAILY NEEDED FOR 28 DAYS ipratropium-albuteroL 20-100 mcg/actuation inhaler Commonly known as: Combivent Respimat Inhale 1 puff into the lungs as needed for Wheezing. 1 puff ketoconazole 2 % Cream Commonly known as: Nizoral Apply topically as needed. losartan 50 mg tablet Commonly known as: Cozaar Take 1 tablet by mouth daily. 50 mg metoprolol succinate XL 50 mg ER 24 hr tablet Commonly known as: Toprol-XL Take 1 tablet by mouth daily. 50 mg naloxone 4 mg/actuation nasal spray Commonly known as: Narcan by Nasal route. traZODone 50 mg tablet Commonly known as: Desyrel TAKE ONE TABLET BY MOUTH AT BEDTIME triamcinolone 0.025 % Cream Commonly known as: KENALOG APPLY A THIN FILM TOPICALLY TWO TIMES A DAY NEEDED FOR ITCHING/ RASH/ REDNESS Viagra 100 mg tablet TAKE 1 TABLET BY MOUTH DAILY NEEDED Generic drug: sildenafiL vitamin D 50,000 unit capsule Take 50,000 Units by mouth every 14 days. Generic drug: ergocalciferoL (vitamin D2) 50,000 Units zolpidem 10 mg tablet Commonly known as: Ambien Take 10 mg by mouth nightly as needed. 10 mg Objective: Vitals: 04/19/24 1215 BP: (!) 129/93 BP Location (NBP): Left arm Patient Position: Sitting Pulse: 74 Resp: 18 Temp: 36.6 ??C (97.8 ??F) TempSrc: Oral SpO2: 98% Weight: 113.4 kg (250 lb) Height: 180.3 cm (5' 11) Physical Exam: General- No acute distress, sitting [...] K 5.0 Mg 0.90 Estimated Creatinine Clearance: 70.5 mL/min (by Cockcroft-Gault based on SCr of [...] QTc monitoring 3. Continue anticoagulation with Apixaban Kareem Schuler PA-C, PhD Pager [phone] EP Consult Attending: Anay Rodriguez MD Associated attestation - Anay Rodriguez MD - 04/20/2024 5:26 PM EDT Staff addendum: I have seen and evaluated the patient, and reviewed the available medical records. I agree with the findings, physical examination, and assessment of Kareem Schuler as detailed below. Anay Rodriguez MD documented in this encounter Miscellaneous Notes * Plan of Care - Perla Hung RN - 04/21/2024 11:57 AM EDT Discharge orders in. IV and tele removed. AVS printed and reviewed with pt. Questions answered. Pt verbalized having all personal belongings. Pt decided against a wheelchair for discharge, left floorwalking. Problem: Fall Injury Risk Goal: Absence of Fall and Fall-Related Injury Outcome: Outcome (s) achieved Problem: Adult Inpatient Plan of Care Goal: Plan of Care Review Outcome: Outcome (s) achieved Goal: Patient-Specific Goal (Individualized) Outcome: Outcome (s) achieved Goal: Absence of Hospital-Acquired Illness or Injury Outcome: Outcome (s) achieved Goal: Optimal Comfort and Wellbeing Outcome: Outcome (s) achieved Goal: Readiness for Transition of Care Outcome: Outcome (s) achieved Problem: Pain Acute Goal: Acceptable Pain Control and Functional Ability Outcome: Outcome (s) achieved Problem: Infection Goal: Absence of Infection Signs and Symptoms Outcome: Outcome (s) achieved Problem: Dysrhythmia Goal: Normalized Cardiac Rhythm Outcome: Outcome (s) achieved * Plan of Care - Dutch Lassiter RN - 04/21/2024 7:28 AM EDT Pt had Tikosyn dosage. EKG two hours completed. QTC is 492. MD and CN notified. Problem: Adult Inpatient Plan of Care Goal: Patient-Specific Goal (Individualized) Outcome: Ongoing (Interventions Implemented as Appropriate) Problem: Adult Inpatient Plan of Care Goal: Readiness for Transition of Care Outcome: Ongoing (Interventions Implemented as Appropriate) Problem: Pain Acute Goal: Acceptable Pain Control and Functional Ability Outcome: Ongoing (Interventions Implemented as Appropriate) Problem: Infection Goal: Absence of Infection Signs and Symptoms Outcome: Ongoing (Interventions Implemented as Appropriate) * Plan of Care - Perla Hung RN - 04/20/2024 5:37 PM EDT OUTCOME EVALUATION NOTE: OUTCOME SUMMARY: VSS. 3rd dose of Tikosyn given. Post admin QT c is 463. Remains in NSR with 1st degree block/sinus deny. Independent in room and halls. PLAN MOVING FORWARD: Monitor VS, ECG CARE PLAN GOAL OUTCOME EVALUATION: Problem: Fall Injury Risk Goal: Absence of Fall and Fall-Related Injury Outcome: Ongoing (Interventions Implemented as Appropriate) Problem: Adult Inpatient Plan of Care Goal: Plan of Care Review Outcome: Ongoing (Interventions Implemented as Appropriate) Goal: Absence of Hospital-Acquired Illness or Injury Outcome: Ongoing (Interventions Implemented as Appropriate) Problem: Pain Acute Goal: Acceptable Pain Control and Functional Ability Outcome: Ongoing (Interventions Implemented as Appropriate) Problem: Infection Goal: Absence of Infection Signs and Symptoms Outcome: Ongoing (Interventions Implemented as Appropriate) Problem: Dysrhythmia Goal: Normalized Cardiac Rhythm Outcome: Ongoing (Interventions Implemented as Appropriate) * Initial Assessments - Handy Davalos RN - 04/20/2024 12:19 PM EDT Office of Care Management Initial Assessment Medical record reviewed. Plan of care and patient status discussed with direct care Registered Nurse and/or Care Team in multidisciplinary rounds. Reason for Hospitalization: drug for heart Per H&P: 64 year old male with a PMH significant for obesity, TYRON, HTN, TIA and atrial fibrillation, anticoagulated with Apixaban 5 mg BID who was referred by Dr. Larry Reid and presents for drug load admission. Enoc reports that he has been dealing with AF for several years and for the last couple of years has been significantly symptomatic. His symptoms include light-headedness (he fell a couple ofmonths ago), palpitations, SOB and the feeling that his legs are very heavy and sluggish. He presents today in AF with normal ventricular rates and only feels sluggish. Enoc is followed by Anat Cross NP at [facility] who saw him on 12/07/23 complaining of symptomatic AF with dizziness and MARTINEZ. He wore a Ziopatch last April that showed a 90% burden of AF with an average heart rate <100 bpm. He has no history of cardioversions, ablations or previous use of antiarrhythmic medications. Last COVID test: Present on Admission: PAF (paroxysmal atrial fibrillation) Hospitalizations Within the Past 30 Days: no previous admission in last 30 days Patient receiving hospital care under Inpatient status. Admission order reviewed. Health/Prescription Coverage: Primary Insurance: [place]ICAID [place] Payor: [place]ICA[place] / Plan: [place] PRIMARY CARE PLUS / Product Type: *No Product type* / Secondary Insurance: N/A ; Prescription Coverage: Yes Preferred Pharmacy: [id number] - [place], [place] - [address] [place] [address] [facility] - [place] - [address] [facility] [address] [facility] [id number] Advance Care Planning: Attempt Cardiopulmonary Resuscitation - Inpatient <no information> -Advanced Directive: No, need to discuss Current Functional Ability: Independent Functional Status Prior to Admission: Independent Home Environment: Others in the home: significant other. Current Living Arrangements: home/apartment/condo. Accessibility Concerns: . Current DME: [address] [facility] [id number] Social & Family Supports: All names listed below confirmed with patient as current and correct Extended Emergency Contact Information Primary Emergency Contact: Naga Catherine Mobile Relation: Friend Secondary Emergency Contact: Donal Esteban [facility] Relation: Father Current Care Provided by: self Transportation: no concerns Transportation Anticipated: family or friend will provide Assessment: Patient with no apparent RNCM/SW needs at this time. No housing, transportation, insurance, resources concerns identified at this time. Supports in place to achieve a safe post-hospital transition. No identified barriers to accessing necessary care and/or follow-up after discharge. Plan: Patient to d/c to home without services via car when medically ready. Registered Nurse Chief Operating Officer / Co Chairman will continue to follow patient???s progress and remain available if situation changes for coordination of care, psychosocial support and/or discharge planning. Office of Care Management Handy Davalos RN RN/CM - Cellphone: [phone] Pager: [phone] Covering Service RN/CM * Consult Note - Swati Powers - 04/20/2024 11:15 AM EDT BIT Evaluation Referral source: Admission screening Reason for referral: Other: Follow up of AUDIT score Interventions delivered: Patient education Other: Alcohol and Your Health Pamphlet Provided. * Plan of Care - Pricilla Martin RN - 04/20/2024 5:50 AM EDT Pt had an uneventful night, denied chest pain, sob and discomfort. Pt had converted to NSR and teamwas aware. Qtc WNL post Tykosin load dose. Problem: Fall Injury Risk Goal: Absence of Fall and Fall-Related Injury Outcome: Ongoing (Interventions Implemented as Appropriate) Problem: Adult Inpatient Plan of Care Goal: Plan of Care Review Outcome: Ongoing (Interventions Implemented as Appropriate) Goal: Patient-Specific Goal (Individualized) Outcome: Ongoing (Interventions Implemented as Appropriate) Goal: Absence of Hospital-Acquired Illness or Injury Outcome: Ongoing (Interventions Implemented as Appropriate) Goal: Optimal Comfort and Wellbeing Outcome: Ongoing (Interventions Implemented as Appropriate) Goal: Readiness for Transition of Care Outcome: Ongoing (Interventions Implemented as Appropriate) Problem: Pain Acute Goal: Acceptable Pain Control and Functional Ability Outcome: Ongoing (Interventions Implemented as Appropriate) Problem: Infection Goal: Absence of Infection Signs and Symptoms Outcome: Ongoing (Interventions Implemented as Appropriate) Problem: Dysrhythmia Goal: Normalized Cardiac Rhythm Outcome: Ongoing (Interventions Implemented as Appropriate) * Plan of Care - Monisha Zambrano RN - 04/19/2024 2:09 PM EDT OUTCOME EVALUATION NOTE: OUTCOME SUMMARY: Assumed care around 1230, assessments and vital signs as documented. Patient independent in room onRA. Patient reports no pain/discomfort at this time. PLAN MOVING FORWARD: EKG 2 hours after Tikosyn dose Ambulate as tolerated Discharge planning as approp CPG GOAL OUTCOME EVALUATION: Continue care plan as documented. Problem: Fall Injury Risk Goal: Absence of Fall and Fall-Related Injury Outcome: Ongoing (Interventions Implemented as Appropriate) Problem: Adult Inpatient Plan of Care Goal: Plan of Care Review Outcome: Ongoing (Interventions Implemented as Appropriate) Goal: Patient-Specific Goal (Individualized) Outcome: Ongoing (Interventions Implemented as Appropriate) Goal: Absence of Hospital-Acquired Illness or Injury Outcome: Ongoing (Interventions Implemented as Appropriate) Goal: Optimal Comfort and Wellbeing Outcome: Ongoing (Interventions Implemented as Appropriate) Goal: Readiness for Transition of Care Outcome: Ongoing (Interventions Implemented as Appropriate) documented in this encounter Plan of Treatment Not on file documented as of this encounter Procedures Procedure Name Priority Date/Time Associated Diagnosis Comments MAGNESIUM Routine 04/21/2024 9:11 AM EDT EKG 12-LEAD Routine 04/21/2024 12:16 AM EDT PAF (paroxysmal atrial fibrillation) MAGNESIUM Routine 04/20/2024 7:51 AM EDT EKG 12-LEAD Routine 04/20/2024 5:05 AM EDT PAF (paroxysmal atrial fibrillation) EKG 12-LEAD Routine 04/19/2024 3:43 PM EDT PAF (paroxysmal atrial fibrillation) documented in this encounter Results * Magnesium (04/21/2024 9:11 AM EDT) Pathologist [facility] Magnesium 0.95 0.69 - 1.07 mmol/L [facility] Blood 04/21/2024 9:11 AM EDT 04/21/2024 9:33 AM EDT Narrative Resulting Agency Comment Spec In Lab Anay Rodriguez MD CHEMISTRY ORDERABLES [facility] [place] [address] * EKG 12 Lead (04/21/2024 12:16 AM EDT) Ventricular rate 60 BPM MUSE SYSTEM Atrial Rate 60 BPM MUSE SYSTEM P-R Interval 226 ms MUSE SYSTEM QRS Duration 84 ms MUSE SYSTEM Q-T Interval 492 ms MUSE SYSTEM QTC Calculated (Bezet) 492 ms MUSE SYSTEM Calculated P [place] 68 degrees MUSE SYSTEM Calculated R [place] 59 degrees MUSE SYSTEM Calculated T [place] 39 degrees MUSE SYSTEM INTERPRETATION Sinus rhythm with 1st degree A-V block Prolonged QT Abnormal ECG When compared with ECG of 20-APR-2024 14:56, Nonspecific T wave abnormality no longer evident in Anterior leads Confirmed by Sabrina Baron ([id number]) on 04/24/2024 5:36:51 PM MUSE SYSTEM 04/21/2024 12:1 6 AM EDT 04/24/2024 5:36 PM EDT Anay Rodriguez MD ECG ORDERABLES MUSE SYSTEM * Magnesium (04/20/2024 7:51 AM EDT) Magnesium 0.93 0.69 - 1.07 mmol/L [facility] Blood 04/20/2024 7:51 AM EDT 04/20/2024 8:15 AM EDT Narrative Resulting Agency Comment Spec In Lab Anay Rodriguez MD CHEMISTRY ORDERABLES Performing Organization Address City/[facility] Co de Phone Number [facility] [place] [address] * EKG 12 Lead (04/20/2024 5:05 AM EDT) Ventricular rate 59 BPM MUSE SYSTEM Atrial Rate 59 BPM MUSE SYSTEM P-R Interval 244 ms MUSE SYSTEM QRS Duration 78 ms MUSE SYSTEM Q-T Interval 488 ms MUSE SYSTEM QTC Calculated (Bezet) 483 ms MUSE SYSTEM Calculated P [place] 75 degrees MUSE SYSTEM Calculated R [place] 65 degrees MUSE SYSTEM Calculated T [place] 39 degrees MUSE SYSTEM INTERPRETATION Sinus bradycardia with 1st degree A-V block Low voltage QRS Prolonged QT Abnormal ECG When compared with ECG of 19-APR-2024 15:43, Sinus rhythm has replaced Atrial fibrillation Nonspecific T wave abnormality no longer evident in Inferior leads Confirmed by Sabrina Baron ([id number]) on 04/24/2024 5:36:13 PM MUSE SYSTEM 04/20/2024 5:05 AM EDT 04/24/2024 5:36 PM EDT Anay Rodriguez MD ECG ORDERABLES MUSE SYSTEM * EKG 12 Lead (04/19/2024 3:43 PM EDT) Ventricular rate 69 BPM MUSE SYSTEM QRS Duration 74 ms MUSE SYSTEM Q-T Interval 420 ms MUSE SYSTEM QTC Calculated (Bezet) 450 ms MUSE SYSTEM Calculated R [place] 44 degrees MUSE SYSTEM Calculated T [place] 12 degrees MUSE SYSTEM INTERPRETATION Atrial fibrillation with premature ventricular or aberrantly conducted complexes Abnormal ECG When compared with ECG of 19-APR-2024 12:51, No significant change was found Confirmed by MD ALLI, JOSUE ([id number]) on 04/20/2024 9:05:19 PM MUSE SYSTEM 04/19/2024 3:43 PM EDT 04/20/2024 9:05 PM EDT Anay Rodriguez MD ECG ORDERABLES MUSE SYSTEM documented in this encounter Visit Diagnoses Diagnosis PAF (paroxysmal atrial fibrillation)- Primary Atrial fibrillation PAF (paroxysmal atrial fibrillation) Atrial fibrillation Chronic atrial fibrillation Atrial fibrillation documented in this encounter Admitting Diagnoses Diagnosis PAF (paroxysmal atrial fibrillation) Atrial fibrillation documented in this encounter Administered Medications Inactive Administered Medications - up to 3 most recent administrations Medication Order MAR Action Action Date Dose Rate Site apixaban (Eliquis) tablet 5 mg 5 mg, Oral, 2 TIMES DAILY, First dose on Thu04/19/24 at 2100, Until Discontinued, Anticoagulant, Routine, apixaban (Eliquis) Indication: Non-Valvular Atrial Fibrillation Given 04/21/2024 8:57 AM EDT 5 mg Given 04/20/2024 9:52 PM EDT 5 mg Given 04/20/2024 8:36 AM EDT 5 mg atorvastatin (Lipitor) tablet 40 mg 40 mg, Oral, EVERY EVENING, First dose (after last modification) on Thu04/19/24 at 1700, Until Discontinued, Routine Given 04/20/2024 4:25 PM EDT 40 mg Given 04/19/2024 4:19 PM EDT 40 mg dofetilide (Tikosyn) capsule 500 mcg 500 mcg, Oral, 2 TIMES DAILY, 5 doses, First dose on Thu04/19/24 at 1300, Last dose on Thu04/21/24 at 0900, Indication for dofetilide: atrial fibrillation Baseline: QTc= 432 ms - QTc measurement via monitor ECG prior to first dose, and 2 to 3 hours after each of the first 5 doses. Document in comments section of MAR associated with dose. - If QTc increased by greater than 25% over baseline, or greater than 550 milliseconds after FIRST dose, notify MD for possible dose adjustment. - Continuous ECG monitoring for minimum of 3 days after initiation of dofetilide, or 12 hours after conversion to sinus rhythm, whichever is longer. - If QTc greater than 550 milliseconds any time after SECOND dose, discontinue dofetilide and notify MD. - No concomitant use of cimetidine, trimethoprim (alone or in combination with sulfamethoxazole), ketoconazole, prochlorperazine, megestroL, verapamiL, itraconazole, hydroCHLOROthiazide, vardenafiL, fluvoxaMINE, FLUoxetine, other antiarrhythmic drugs, or drugs that prolong QT. - Presence of metFORMIN, macrolide antibiotics, azole anti fungal agents, protease inhibitors, AMIOdarone, dilTIAZem, grapefruit juice, nefazodone, norfloxacin, quiNINE, zafirlukast (inhibitors of cytochrome [id number]) may increase dofetilide levels; consider decreasing the dose by 50%. - Not or ( Category C). - Potassium level greater than or equal to 3.5 mg/dL, Magnesium greater than or equal to 0.65 mmol/L, Creatinine clearance greater than or equal to 20 mL/minute (calculated using Cockcroft-Gault using actual body weight). - Baseline QTc less than or equal 480 milliseconds (500 milliseconds in patients with conduction delay)., Routine, Please indicate the name of the EP Attending who authorized the use of Dofetilide: Approved by Anay Rodriguez MD Given 04/21/2024 9:00 AM EDT 500 mcg Given 04/20/2024 9:51 PM EDT 500 mcg Given 04/20/2024 12:58 PM EDT [address] (Cymbalta) capsule 60 mg 60 mg, Oral, NIGHTLY, First dose on Thu04/19/24 at 2100, Until Discontinued, Routine Given 04/20/2024 9:51 PM EDT 60 mg Given 04/19/2024 9:32 PM EDT 60 mg febuxostat (Uloric) tablet 40 mg 40 mg, Oral, DAILY, First dose on Thu04/20/24 at 0900, Until Discontinued, Routine Given 04/21/2024 8:57 AM EDT 40 mg Given 04/20/2024 8:36 AM EDT 40 mg HYDROcodone-acetaminophen ([place]) 5-325 mg per tablet 2 tablet 2 tablet, Oral, EVERY 4 HOURS PRN, Starting on Thu04/19/24 at 1342, Until Thu04/21/24 at 1405, Pain, Maximum dose of acetaminophen is 4000 mg from all sources in 24 hours., Routine Given 04/21/2024 8:56 AM EDT 2 tablets Given 04/20/2024 1:01 PM EDT 2 tablets Given 04/20/2024 8:39 AM EDT 2 tablets lidocaine (Xylocaine) 1% (10 mg/mL) injection 3 mg 3 mg (0.3 mL), Subcutaneous, ONCE PRN, 1 dose, Starting on Thu04/19/24 at 1223, Until Thu04/21/24 at 1405, for discomfort with PIV insertion, Routine losartan (Cozaar) tablet 50 mg 50 mg, Oral, DAILY, First dose on Thu04/20/24 at 0900, Until Discontinued, Routine Given 04/21/2024 8:57 AM EDT 50 mg Given 04/20/2024 8:36 AM EDT 50 mg metoprolol succinate XL (Toprol-XL) tablet 50 mg 50 mg, Oral, DAILY, First dose on Thu04/20/24 at 0900, Until Discontinued, DO NOT CRUSH OR OPEN, Routine Given 04/21/2024 8:57 AM EDT 50 mg Given 04/20/2024 8:36 AM EDT 50 mg nitroGLYcerin (Nitrostat) disintegrating tablet 0.4 mg 0.4 mg, Sublingual, EVERY 5 MIN PRN, Starting on Thu04/19/24 at 1223, Until Thu04/21/24 at 1405, Chest pain, May repeat every 5 minutes for a total of three doses. Notify provider if chest pain not relieved with nitroglycerin. Do not administer nitroglycerin if the patient has received or taken phosphodiesterase (PDE-5) inhibitors such as sildenafil, tadalafil or vardenafil within the last 24 to 72 hours., Routine sodium chloride 0.9 % (flush) (BD PosiFlush Normal Saline 0.9) flush 5 mL 5 mL, Intravenous, 2 TIMES DAILY, First dose on Thu04/19/24 at 1330, Until Discontinued, Routine Given 04/21/2024 8:57 AM EDT 5 mLs Given 04/20/2024 9:52 PM EDT 5 mLs Given 04/20/2024 8:36 AM EDT 5 mLs sodium chloride 0.9 % (flush) (BD PosiFlush Normal Saline 0.9) flush 5-20 mL 5-20 mL, Intravenous, EVERY 1 MIN PRN, Starting on Thu04/19/24 at 1223, Until Leana 04/21/24 at 1405, flush, Flush pertains to all indwelling lines. Flush per protocol found in the job aid using the link provided on this medication record., Routine traZODone (Desyrel) tablet 50 mg 50 mg, Oral, NIGHTLY, First dose on Thu04/19/24 at 2100, Until Discontinued, Routine Given 04/20/2024 9:51 PM EDT 50 mg Given 04/19/2024 9:32 PM EDT 50 mg zolpidem (Ambien) tablet 10 mg 10 mg, Oral, NIGHTLY PRN, Starting on Thu04/19/24 at 1311, Until Thu04/21/24 at 1405, Sleep, Routine Given 04/20/2024 9:56 PM EDT 10 mg Given 04/19/2024 9:32 PM EDT 10 mg documented in this encounter Active and Recently Administered Medications Times are shown in EDT. Scheduled Medication Order 04/19/2024 04/20/2024 04/21/2024 apixaban (Eliquis) tablet 5 mg 5 mg, Oral, 2 TIMES DAILY, First dose on Thu04/19/24 at 2100, Until Discontinued, Anticoagulant, Routine, apixaban (Eliquis) Indication: Non-Valvular Atrial Fibrillation 2019 (Given - Provider: Pricilla Martin RN) 835 (Given - Provider: Perla Hung, SKY)2151 (Given - Provider: Dutch Lassiter RN) 0857 (Given - Provider: Perla Hung RN) atorvastatin (Lipitor) tablet 40 mg 40 mg, Oral, EVERY EVENING, First dose (after last modification) on Thu04/19/24 at 1700, Until Discontinued, Routine 1619 (Given - Provider: Monisha Zambrano RN) 1625 (Given - Provider: Perla Hung RN) dofetilide (Tikosyn) capsule 500 mcg (COMPLETED) 500 mcg, Oral, 2 TIMES DAILY, 5 doses, First dose on Thu04/19/24 at 1300, Last dose on Thu04/21/24 at 0900, Indication for dofetilide: atrial fibrillation Baseline: QTc= 432 ms - QTc measurement via monitor ECG prior to first dose, and 2 to 3 hours after each of the first 5 doses. Document in comments section of MAR associated with dose. - If QTc increased by greater than 25% over baseline, or greater than 550 milliseconds after FIRST dose, notify MD for possible dose adjustment. - Continuous ECG monitoring for minimum of 3 days after initiation of dofetilide, or 12 hours after conversion to sinus rhythm, whichever is longer. - If QTc greater than 550 milliseconds any time after SECOND dose, discontinue dofetilide and notify MD. - No concomitant use of cimetidine, trimethoprim (alone or in combination with sulfamethoxazole), ketoconazole, prochlorperazine, megestroL, verapamiL, itraconazole, hydroCHLOROthiazide, vardenafiL, fluvoxaMINE, FLUoxetine, other antiarrhythmic drugs, or drugs that prolong QT. - Presence of metFORMIN, macrolide antibiotics, azole anti fungal agents, protease inhibitors, AMIOdarone, dilTIAZem, grapefruit juice, nefazodone, norfloxacin, quiNINE, zafirlukast (inhibitors of cytochrome B728-9K5) may increase dofetilide levels; consider decreasing the dose by 50%. - Not or ( Category C). - Potassium level greater than or equal to 3.5 mg/dL, Magnesium greater than or equal to 0.65 mmol/L, Creatinine clearance greater than or equal to 20 mL/minute (calculated using Cockcroft-Gault using actual body weight). - Baseline QTc less than or equal 480 milliseconds (500 milliseconds in patients with conduction delay)., Routine, Please indicate the name of the EP Attending who authorized the use of Dofetilide: Approved by Anay Rodriguez MD 1400 (Given - Provider: Monisha Zambrano, SKY) 0318 (Given - Provider: Pricilla Martin, SKY)1258 (Given - Provider: Perla Hung RN)2150 (Given - Provider: Dutch Lassiter RN - Comment: qtc [phone]) 0900 (Given - Provider: Perla Hung RN) DULoxetine DR (Cymbalta) capsule 60 mg 60 mg, Oral, NIGHTLY, First dose on Thu04/19/24 at 2100, Until Discontinued, Routine 2131 (Given - Provider: Pricilla Martin RN) 2150 (Given - Provider: Dutch Lassiter, SKY) febuxostat (Uloric) tablet 40 mg 40 mg, Oral, DAILY, First dose on Thu04/20/24 at 0900, Until Discontinued, Routine 0836 (Given - Provider: Perla Hung RN) 0857 (Given - Provider: Perla Hung RN) losartan (Cozaar) tablet 50 mg 50 mg, Oral, DAILY, First dose on Thu04/20/24 at 0900, Until Discontinued, Routine 0836 (Given - Provider: Perla Hung RN) 0857 (Given - Provider: Perla Hung RN) metoprolol succinate XL (Toprol-XL) tablet 50 mg 50 mg, Oral, DAILY, First dose on Thu04/20/24 at 0900, Until Discontinued, DO NOT CRUSH OR OPEN, Routine 0836 (Given - Provider: Perla Hung RN) 0857 (Given - Provider: Perla Hung RN) sodium chloride 0.9 % (flush) (BD PosiFlush Normal Saline 0.9) flush 5 mL 5 mL, Intravenous, 2 TIMES DAILY, First dose on Thu04/19/24 at 1330, Until Discontinued, Routine 1400 (Given - Provider: Monisha Zambrano RN)3 (Given - Provider: Pricilla Martin RN) 0836 (Given - Provider: Perla Hung RN)215 (Given - Provider: Dutch Lassiter RN) 0857 (Given - Provider: Perla Hung RN) traZODone (Desyrel) tablet 50 mg 50 mg, Oral, NIGHTLY, First dose on Thu04/19/24 at 2100, Until Discontinued, Routine 2131 (Given - Provider: Pricilla Martin RN) 2150 (Given - Provider: Dutch Lassiter RN) PRN Medication Order 04/19/2024 04/20/2024 04/21/2024 HYDROcodone-acetaminophen ([place]) 5-325 mg per tablet 2 tablet 2 tablet, Oral, EVERY 4 HOURS PRN, Starting on Thu04/19/24 at 1342, Until Thu04/21/24 at 1405, Pain, Maximum dose of acetaminophen is 4000 mg from all sources in 24 hours., Routine 0839 (Given - Provider: Perla Hung RN)1301 (Given - Provider: Perla Hung RN) 0856 (Given - Provider: Perla Hung, SKY) lidocaine (Xylocaine) 1% (10 mg/mL) injection 3 mg 3 mg (0.3 mL), Subcutaneous, ONCE PRN, 1 dose, Starting on Thu04/19/24 at 1223, Until Thu04/21/24 at 1405, for discomfort with PIV insertion, Routine nitroGLYcerin (Nitrostat) disintegrating tablet 0.4 mg 0.4 mg, Sublingual, EVERY 5 MIN PRN, Starting on Thu04/19/24 at 1223, Until Thu04/21/24 at 1405, Chest pain, May repeat every 5 minutes for a total of three doses. Notify provider if chest pain not relieved with nitroglycerin. Do not administer nitroglycerin if the patient has received or taken phosphodiesterase (PDE-5) inhibitors such as sildenafil, tadalafil or vardenafil within the last 24 to 72 hours., Routine sodium chloride 0.9 % (flush) (BD PosiFlush Normal Saline 0.9) flush 5-20 mL 5-20 mL, Intravenous, EVERY 1 MIN PRN, Starting on Thu04/19/24 at 1223, Until Thu04/21/24 at 1405, flush, Flush pertains to all indwelling lines. Flush per protocol found in the job aid using the link provided on this medication record., Routine zolpidem (Ambien) tablet 10 mg 10 mg, Oral, NIGHTLY PRN, Starting on Thu04/19/24 at 1311, Until Leana 04/21/24 at 1405, Sleep, Routine 2131 (Given - Provider: Pricilla Martin, SKY) 2155 (Given - Provider: Dutch Lassiter RN) documented in this encounter Care Teams Basin Cleaner Relationship Specialty Start Date End Date Astrid Grier MD [address] [place] [address] PCP - General Family Medicine 04/06/23 documented as of this encounter
--- OUTSIDE RECORDS SUMMARY | 2024-08-29 14:11 | XMS_ITS | Encounter Summary ---
Author Organization [facility] Address [address] [place] [address] Care Team Providers Care Bottle Carrier Name Role Phone Unknown, Provider Primary Care Provider Unava ilable Encounter Details Date Type Department Care Team (Latest Contact Info) Description 11/19/2015 17:27 EST - 11/19/2015 23:59 EST Hospital Encounter [address] [address] Unknown, ProviderMD Discharge Disposition: Home or Self Care Social History Tobacco Use Types Packs/Day Years Used Date Smoking Tobacco: Never Assessed Sex and Gender Information Value Date Recorded Sex Assigned at Not on file Legal Sex Male 18:46 EST Gender Identity Not on file Sexual Orientation Not on file documented as of this encounter Discharge Disposition Disposition Code Departure Means Destination Home or Self [facility] documented in this encounter Plan of Treatment Not on file documented as of this encounter Visit Diagnoses Not on filedocumented in this encounter Care Teams Bottle Carrier Relationship Specialty Start Date End Date Unknown, Provider, PCP - General 11/19/15 documented as of this encounter
--- OUTSIDE RECORDS SUMMARY | 2024-08-29 14:11 | XMS_ITS | Encounter Summary ---
Author Organization [facility] Address [address] [place] [address] Care Team Providers Care Package Delivery Room Service Runner Name Role Phone Unknown, Provider Primary Care Provider Unava ilable Encounter Details Date Type Department Care Team (Late st Contact Info) Description 02/28/2020 Lab Requisition [facility] Pathology & Laboratory Medicine - [place] [address] [place], [place] [id number] Outr Resulting Lab, Provider Social History Tobacco [...] Parasite No ova and parasites seen. 02/29/2020 13:21 EDT [facility] Feces SPECIMEN FROM RECTUM / Unknown 02/28/2020 17:33 EDT 02/29/2020 7:47 EDT Narrative [facility] - 02/29/2020 13:21 EDT (If Cryptosporidium, Cyclospora, or Microsporidium are suspected, specific tests must be requested.) Single negative specimen does not rule out the possibility of a parasitic infection. us Provider Outr Resulting Lab MICROBIOLOGY - GENER AL ORDERABLES Final Result Performing Organization Address [facility]/State/ZIP Co de Phone Number [facility] [address] [place] [address] documented in this encounter Visit Diagnoses Not on filedocumented in this encounter Care Teams Package Delivery Room Service Runner Relationship Specialty Start Date End Date Unknown, Provider, PCP - General 11/19/15 documented as of this encounter
--- OUTSIDE RECORDS SUMMARY | 2024-08-29 14:11 | XMS_ITS | Clinical Summary ---
Author Organization [facility] Address [address] [place] [address] Care Team Providers Care Ball Rolling Machine Operator Name Role Phone Unknown, Provider MD Primary Care Provider Unava ilable Encounters Date Type Department Care Team Description 08/08/2024 Lab Requisition [facility] Pathology & Laboratory Medicine - [facility] [address] [place] [address] Outr Resulting Lab, Provider from Last 3 Months Social History Tobacco Use Types Packs/Day Years Used Date Smoking Tobacco: Never Assessed Sex and Gender Information Value Date Recorded Sex Assigned at Not on file Legal Sex Male 18:46 EST Gender Identity Not on file Sexual Orientation Not on file Plan of Treatment Health Maintenance Due Date Last Done Comments COVID-19 Vaccine ( season) 2024 RSV Immunization ( o r 60+ Years) (1 - 1-dose 75+ series) 2037 Hepatitis C Screen Completed 08/07/2022 Procedures Procedure Name Priority Date/Time Associated Diagnosis [...] Confirmation Negative <100 ng/mL 08/10/2024 8:32 EDT [facility] Hydrocodone Confirmation >1000(A) <50 ng/mL 08/10/2024 8:32 EDT [facility] Hydromorphone Confirmation 297(A) <50 ng/mL 08/10/2024 8:32 EDT [facility] Oxycodone Confirmation Negative <50 ng/mL 08/10/2024 8:32 EDT [facility] Oxymorphone Confirmation Negative <50 ng/mL 08/10/2024 8:32 EDT [facility] Dihydrocodeine Confirmation >1000(A) <50 ng/mL 08/10/2024 8:32 EDT [facility] Norhydrocodone Confirmation >1000(A) <50 ng/mL 08/10/2024 8:32 EDT [facility] Norhydromorphone Confirmation 61(A) <50 ng/mL 08/10/2024 8:32 EDT [facility] Noroxycodone Confirmation Negative <50 ng/mL 08/10/2024 8:32 EDT [facility] Noroxymorphone Confirmation Negative <50 ng/mL 08/10/2024 8:32 EDT [facility] Urine URINE / Unknown 08/08/2024 1 1:28 EDT 08/08/2024 22:07 EDT Narrative [facility] - 08/10/2024 8:32 EDT Testing performed by: [facility] [address] [place] [address], [facility] [address], [place] [address] Precipitate Washer: Rah Aleman MD; CLIA # [id number] us Provider Outr Resulting Lab GEN LAB UNIT COLLECT ORDERABLES Final Result [facility] [address] [place] [address], [facility] [address] [place] [address], [facility] [phone] * HEPATITIS C AB W REFLEX TO HCV RNA BY PCR (08/07/2022 10:00 EDT) Hep C Antibody Negative Negative 08/08/2022 9:16 EDT [facility] Blood VENOUS BLOOD / Unknown 08/07/2022 10:00 EDT 08/07/2022 21:02 EDT us Provider Outr Resulting Lab CHEMISTRY & BLOOD GA S ORDERABLES Final Result [facility] [address] [place] [address] from Last 3 Months or Most Recently Relevant to Health Maintenance Care Teams Ball Rolling Machine Operator Relationship Specialty Start Date End Date Unknown, Provider, PCP - General 11/19/15
--- OUTSIDE RECORDS SUMMARY | 2024-08-29 14:11 | XMS_ITS | Encounter Summary ---
Author Organization [facility] Address [address] [place] [address] Care Team Providers Care Cd Manufacturing Supervisor Name Role Phone Unknown, Provider Primary Care Provider Unava ilable Encounter Details Date Type Department Care Team (Late st Contact Info) Description 12/19/2020 Lab Requisition [facility] Pathology & Laboratory Medicine - [facility] [address] [place], [place] [id number] Outr Resulting Lab, Provider Social History Tobacco [...] Procedure Name Priority Date/Time Associated Diagnosis Comments ANTI NUCLEAR AB (MICHI), IFA Routine 12/19/2020 8:23 EST documented in this encounter Results * (ABNORMAL) ANTI NUCLEAR AB (MICHI), IFA (12/19/2020 8:23 EST) MICHI Interpretation Positive(A) Negative 12/20/2020 15:23 EST [facility] Comment: For titers greater than or equal to 1:160 (except the centromere and nucleolar patterns) it is recommended that specific follow-up autoantibody testing ??(such as for dsDNA and Extractable Nuclear Antigens) be performed on all diffuse and/or speckled patterns NOTE: For add-on testing dsDNA is stable for 7 days refrigerated while Extractable Nuclear Antigens are only stable for 48 hours refrigerated. MICHI Titer and Pattern 1 1:320 Speckled 12/20/2020 15:23 EST [facility] Blood VENOUS BLOOD / Unknown 12/19/2020 8:23 EST 12/19/2020 20:59 EST Narrative [facility] - 12/20/2020 15:23 EST Results were obtained with the [employer] NOVA Lite HEp-2 MICHI Kit by indirect immunofluorescence. us Provider Outr Resulting Lab IMMUNOLOGY AND SEROL OGY ORDERABLES Final Result Performing Organization Address City/State/[facility] Co de Phone Number [facility] [address] [place] [phone] documented in this encounter Visit Diagnoses Not on filedocumented in this encounter Care Teams Cd Manufacturing Supervisor Relationship Specialty Start Date End Date Unknown, Provider, PCP - General 11/19/15 documented as of this encounter
--- OUTSIDE RECORDS SUMMARY | 2024-08-29 14:11 | XMS_ITS | Encounter Summary ---
Author Organization [facility] [place] [address] Care Team Providers Care Sales Administrator Name Role Phone Astrid Grier MD Primary Care Provider Reason for Visit * Auth/Cert (Routine) Specialty Diagnoses / Procedures Referred By Contac t Referred To Contact Diagnoses Chronic atrial fibrillation, unspecified Procedures PRO INITIAL INPT/OBS HIGH 75 MIN Anay Rodriguez MD [facility] [place] [address] [place] [address] [facility] Referral ID Status Reason Start Date Expiration Date Visits Re quested Visits Authorized [id number] 1 1 Encounter Details Date Type Department Care Team (Latest Contact Info) Description 04/19/2024 10:55 AM EDT Laboratory Appointment Lab [address] [place] [id number] Chronic atrial fibrillation Social History Tobacco Use [...] Priority Date/Time Associated Diagnosis Comments MAGNESIUM Routine 04/19/2024 10:40 AM EDT Chronic atrial fibrillation BASIC METABOLIC PANEL Routine 04/19/2024 10:40 AM EDT Chronic atrial fibrillation documented in this encounter Results * Magnesium (04/19/2024 10:40 AM EDT) Magnesium 0.90 0.69 - 1.07 mmol/L [facility] Blood 04/19/2024 10:4 0 AM EDT 04/19/2024 10:56 AM EDT Narrative Resulting Agency Comment Spec In Lab Atilio Esteban MD CHEMISTRY ORDERABLES [facility] [place] [address] * (ABNORMAL) Basic Metabolic Panel (non-fasting) (04/19/2024 10:40 AM EDT) Glucose 125 65 - 199 mg/dL [facility] Comment:Diabetes: >=200 mg/d L plus symptoms Blood Urea Nitrogen 13 10 - 20 mg/dL [facility] Creatinine 1.39 0.80 - 1.50 mg/dL [facility] Sodium 139 135 - 145 mmol/L [facility] Potassium 5.0 3.5 - 5.0 mmol/L [facility] Comment: Please note: ??Patients with WBC >100,000 may have falsely elevated Potassium levels. ??For accurate Potassium quantification in these patients send serum separator tube (gold top) for subsequent determinations. ??Contact the Clinical Chemistry Laboratory if there are any questions. Chloride 101 98 - 107 mmol/L [facility] Carbon Dioxide 27 22 - 31 mmol/L [facility] Anion Gap 11 5 - 15 mmol/L [facility] Calcium 9.6 8.5 - 10.5 mg/dL [facility] Est Glomerular Filtration Rate 57(L) >=60 mL/min/1. 73 m?? [facility] Comment: This patient's estimated GFR [...] Esteban MD CHEMISTRY ORDERABLES Performing Organization Address City/State/[facility] Co de Phone Number [facility] [place] [address] documented in this encounter Visit Diagnoses Diagnosis Chronic atrial fibrillation Atrial fibrillation documented in this encounter Care Teams Sales Administrator Relationship Specialty Start Date End Date Astrid Grier MD [address] [place] [address] PCP - General Family Medicine 04/06/23 documented as of this encounter
--- OUTSIDE RECORDS SUMMARY | 2024-08-29 14:11 | XMS_ITS | Clinical Summary ---
Author Organization [facility] Address [facility] [place] [address] Care Team Providers Care Braille Translator Name Role Phone Astrid Grier MD Primary Care Provider Allergies Active Allergy Reactions Criticality Noted Date Comments Allopurinol Rash Medium 08/03/2017 Ketoconazole Rash 10/01/2022 patient states the rash was from allopurinol not this, and he has used it without issue.%0ALast modified by Alysia Alcaraz 12-24-2020, 08:31 Medications Medication Sig Dispensed Refills Start Date End Date Status zolpidem (AMBIEN) 10 mg Tablet Take 10 mg by mouth nightly as needed. Active losartan (COZAAR) 50 mg Tablet Take 1 tablet by mouth daily. 30 tablet 5 10/20/2016 Active VIAGRA 100 mg Tablet TAKE 1 TABLET BY MOUTH DAILY NEEDED MAX OF 1 TABLET IN 24 HOURS 12 04/08/2017 Active VITAMIN D 50,000 unit Capsule Take 50,000 Units by mouth every 14 days. 3 06/10/2019 Active metoprolol succinate (TOPROL-XL) 50 mg Tablet Sustained Release 24 hr Take 1 tablet by mouth daily. 90 tablet 3 07/19/2019 Active ipratropium-albutero l (COMBIVENT RESPIMAT) 20-100 mcg/actuation Mist Inhale 1 puff into the lungs as needed for Wheezing. Active febuxostat (Uloric) 40 mg Tablet Take 1 tablet by mouth daily. 90 tablet 3 11/07/2019 Active HYDROcodone-acetamin ophen ([place]) 10-325 mg Tablet TAKE 2 TABLETS BY MOUTH 3 TIMES DAILY NEEDED FOR 28 DAYS 04/20/2020 Active traZODone (Desyrel) 50 mg Tablet TAKE ONE TABLET BY MOUTH AT BEDTIME 10/13/2020 Active triamcinolone (KENALOG) 0.025 % Cream APPLY A THIN FILM TOPICALLY TWO TIMES A DAY NEEDED FOR ITCHING/ RASH/ REDNESS 08/22/2022 Active naloxone (Narcan) 4 mg/actuation [place], Non-Aerosol by Nasal route. 07/22/[address] (Cymbalta) [address] capsule Take 2 capsules by mouth nightly. 180 capsule 03/17/2024 Active ketoconazole (Nizoral) 2 % Cream Apply topically as needed. Active atorvastatin (Lipitor) 40 mg tablet Take 1 tablet by mouth every evening. 04/21/2024 Active apixaban (Eliquis) 5 mg tablet Take 1 tablet by mouth 2 times daily. 04/21/2024 Active dofetilide (Tikosyn) 500 mcg capsuleIndications:C hronic atrial fibrillation TAKE ONE CAPSULE BY MOUTH TWICE A DAY 180 capsule 3 05/24/2024 Active Active Problems Patient Care Coordination No te Formatting of this note migh t be different from the original. Awaiting vaccine history. - DIPIKA ROMEO LPN 06/13/2014 Problem Noted Date Diagnosed Date PAF (paroxysmal atrial fibrillation) 04/19/2024 Inflammatory arthritis 11/12/2022 Muscle pain 08/04/2022 Lyme disease 08/04/2022 Hyperlipidemia 08/04/2022 Sciatica 08/04/2022 Tinea corporis 08/04/2022 Transient ischemic attack 08/04/2022 Chronic pain 08/04/2022 Spondylosis of lumbar region without myelopathy or radiculopathy 03/30/2021 Microscopic hematuria 01/03/2021 Dupuytren's contracture of right hand 11/12/2020 Insulin resistance 10/11/2020 S/p Left SLIM on 04/12/20 (Dr. Lay) 04/12/2020 Status post total hip replacement, left 04/12/20 20 Obesity (BMI 30.0-34.9) 03/23/2020 History of cervical spinal surgery 03/23/2020 History of lumbar surgery 03/23/2020 Pain of left hip joint 11/14/2019 Lumbar radiculopathy 10/25/2019 Diverticulosis of colon 03/17/2019 Psychophysiologic insomnia 07/12/2018 Atrial fibrillation 01/25/2018 Radiculopathy of cervical region 03/03/2017 HTN (hypertension) 09/11/2012 Tophaceous gout 09/11/2012 Hyperuricemia 09/11/2012 Mild vitamin D deficiency 09/11/2012 Moderate asthma 09/11/2012 TYRON (obstructive sleep apnea) 09/11/2012 Resolved Problems Problem Noted Date Diagnosed Date Resolved Date [facility], 10/16/2014 exc prox ulna entesophyte 11/24/201403/23 Pain in right elbow 06/13/2014 03/23/20 20 Fracture of left small finge r, proximal, closed 02/07/2013 03/23/2020 Encounters Date Type Department Care Team Description 07/12/2024 [place] [address] Swati Donaldson 05/30/2024 [place] [address] Perla Olea, DO from Last 3 Months Immunizations Name Administration Dates Next Due Covid-19 Monovalent (Moderna Spikevax) 12yrs+ (2223-1850) 02/01/2021,01/07/2021 Influenza Quadrivalent, Preservative Free 2021 Influenza Trivalent w/Preservative 07/25/2013 Influenza Unspecified Formulation 07/08/2013 Tdap (Adacel, Boostrix) 06/21/2012 Family History Medical History Relation Comments Cancer Father Relation Status Comments Father Social History Tobacco Use Types Packs/Day Years Used Date Smoking Tobacco: Never Smokeless Tobacco: Never Tobacco Cessation:Counseling Given: Not Answered Alcohol Use Standard Drinks/Week Comments Yes 23 (1 standard drink = 0.6 oz pu re alcohol) 2-3 drinks daily [facility] Inpatient Questions Answer Date Recorded Does Anyone Try to Keep You From Having Contact with Others or Doing Things Outside Your Home? no 04/19/2024 Feels Threatened by Someone no 07/0 06/2024 Feels Unsafe at Home or Work/School no 04/19/2024 Physical Signs of Abuse Present no 04/19/2024 Sex and Gender Information Value Date Recorded Sex Assigned at Not on file Gender Identity Not on file Sexual Orientation Not on file Last Filed Vital Signs Vital Sign Reading [...] Mass Index 35.09 04/19/2024 12:15 PM EDT Plan of Treatment Health Maintenance Due Date Last Done Comments CT Colonography 1960 Colonoscopy 1960 Colorectal Cancer Screening 1960 FIT DNA 1960 FIT 1960 Sigmoidoscopy (10 year) with FIT yearly 1962 Sigmoidoscopy 1960 Pneumococcal Vaccine: At-Ris k 5-64yrs (1 of 2 - PCV) 01/07/1968 HIV screen 01/07/1980 Zoster vaccine (1 of 2) 01/07/2012 Advance Directive 2017 Tetanus/Diphtheria/Pertussis Vaccines (2 - Td or Tdap) 06/21/2022 06/21/2012 Covid-19 Vaccine (3 - 2023-2 5 season) 2024 02/01/2021, 01/07/2021 Influenza (Flu) vaccine (1 o f 1 - Influenza standard series) 06/12/2024 08/22/2022, 07/25/2013, 07/08/2013 Diabetes Screening (HgbA1C o r Glucose) 04/19/2027 04/19/2024, 03/09/2024, 01/21/2023, Additional history exists Hepatitis C Screening Completed 08/04/2012 Medical Devices Implanted Type Area Sealer Operator Device Identifier Shelf Expiration Date Model / Serial / Lot Adam Zamorano,.045,1.1mm ([id number]) - [id number] Implanted:Qty : 2 on 02/08/2013 by Rohan Duarte MD at [facility] IMPLANTS Left: Emani Dumont & Manuf - [id number] / / [id number] [address]a in,2,0.045x9i n,Ns ([id number]) - [id number] Implanted:Qty : 1 on 02/08/2013 by Rohan Duarte MD at [facility] IMPLANTS Left: Finger [employer] - [id number] 1600-945N S / / [id number] Liner,Mpact,F lat,[place] ,36, ([id number]) (Autoreq) - [id number] Implanted:Qty : 1 on 04/12/2020 by Isidoro Lay MD at [facility] IMPLANTS Left: Hip MEDACTA [place] - MEDACTA [id number] 09/11/2024 01.32.365 2HCT / / [id number] Cup,Mpact,Rim ,2hole,62mm ([id number]) (Autoreq) - [id number] Implanted:Qty : 1 on 04/12/2020 by Isidoro Lay MD at [facility] IMPLANTS Left: Hip [employer] [place] - MEDACTA [id number] 03/15/2023 01.32.162 DH / / [id number] Head,Biolox,D elta,Large,36 mm ([id number]) (Autoreq) - [id number] Implanted:Qty : 1 on 04/12/2020 by Isidoro Lay MD at [facility] IMPLANTS Left: Hip [employer] [place] - MEDACTA [id number] 12/03/2024 01.29.210 / / [id number] Stem,Amistem, Prssft,Clrd,S tnd, ([id number]) (Autoreq) - [id number] Implanted:Qty : 1 on 04/12/2020 by Isidoro Lay MD at [facility] IMPLANTS Left: Hip [employer] [place] - MEDACTA US 01/10/2025 01.18.436 / / [id number] Procedures Procedure Name Priority Date/Time Associated Diagnosis Comments BASIC METABOLIC PANEL Routine 04/19/2024 10:40 AM EDT Chronic atrial fibrillation HCV QUANT Routine 08/04/2012 10:24 AM EDT Joint pain from Last 3 Months or Most Recently Relevant to Health Maintenance Results * (ABNORMAL) Basic Metabolic Panel (non-fasting) (04/19/2024 10:40 AM EDT) Glucose 125 65 - 199 mg/dL [facility] Comment:Diabetes: >=200 mg/d L plus symptoms Blood Urea Nitrogen 13 10 - 20 mg/dL [facility] Creatinine 1.39 0.80 - 1.50 mg/dL [facility] Sodium 139 135 - 145 mmol/L [facility] Potassium 5.0 3.5 - 5.0 mmol/L [facility] Comment: Please note: ??Patients with WBC >100,000 may have falsely elevated Potassium levels. ??For accurate Potassium quantification in these patients send serum separator tube (gold top) for subsequent determinations. ??Contact the Clinical Chemistry Laboratory if there are any questions. Chloride 101 98 - 107 mmol/L [facility] Carbon Dioxide 27 22 - 31 mmol/L [facility] Anion Gap 11 5 - 15 mmol/L [facility] Calcium 9.6 8.5 - 10.5 mg/dL [facility] Est Glomerular Filtration Rate 57(L) >=60 mL/min/1. 73 m?? [facility] Comment: This patient's estimated GFR [...] In Lab Atilio Esteban MD CHEMISTRY ORDERABLES [facility] [place] [address] * HCV QUANT (08/04/2012 10:24 AM EDT) Pathologist [facility] HCV Viral Load <43 IU/mL [facility] HCV Viral Load Result: < 43 (Target Not Detected) Indication for Study: Hepatitis C Infection Analysis: A quantitiative real time reverse transcriptase PCR assay was performed on extracted viral RNA for the purpose of quantification. Sample: plasma (0.5 mL minimun volume) Method: Gayle Keagan TaqMAN 48 HCV Linear Range: 43IU/mL - 69,000,000IU/mL (95% CI) Interpretation: The result of this analysis is within the limits of detection of the assay. Note: This assay is being performed in the [facility] Molecular Pathology Laboratory. Casey Barrow, Ph.D. Director, Molecular Pathology [facility] Comment: [VERIFIED DATE]08.09.12 Verified By:Analilia Frank (Electronic Signature) Blood specimen (specimen) 08/04/2012 10:24 AM EDT 08/04/2012 10:35 AM EDT Narrative Resulting Agency Comment Spec In Lab Alvaro Cam MD HEMATOLOGY ORDERABLE S Performing Organization Address City/[facility] Co de Phone Number [facility] from Last 3 Months or Most Recently Relevant to Health Maintenance Advance Directives Documents on File Type Date Recorded Patient Litigation Examiner Expl anation Personal Litigation Examiner 04/05/2020 7:53 AM KD * Attempt Cardiopulmonary Resuscitation - Inpatient (Latest Code Status on File) Date Activated Date Inactivated Comments 04/19/2024 12:11 PM 04/21/2024 2:10 PM Question Answer Comments Code Status decision made by: Patient Content of discussion: Discussed with patient * Attempt Cardiopulmonary Resuscitation - Inpatient Date Activated Date Inactivated Comments 11/20/2023 7:35 AM 11/20/2023 6:58 PM Question Answer Comments Code Status decision made by: Patient * Full Code Date Activated Date Inactivated Comments 04/13/2020 1:16 PM 04/02/2021 10:00 AM Question Answer Comments Does patient have capacity to make decision: Yes * Full Code Date Activated Date Inactivated Comments 04/12/2020 5:02 PM 04/13/2020 1:16 PM Question Answer Comments Does patient have capacity to make decision: Yes * Full Code Date Activated Date Inactivated Comments 10/25/2019 4:14 PM 10/26/2019 1:23 PM Question Answer Comments Does patient have capacity to make decision: Yes Care Teams Braille Translator Relationship Specialty Start Date End Date Astrid Grier MD [address] [place] [address] PCP - General Family Medicine 04/06/23
--- OUTSIDE RECORDS SUMMARY | 2024-08-29 14:11 | XMS_ITS | Encounter Summary ---
Author Organization [facility] Address [address] [place] [address] Care Team Providers Care Store Sales Leader Name Role Phone Unknown, Provider Primary Care Provider Unava ilable Encounter Details Date Type Department Care Team (Late st Contact Info) Description 12/01/2023 Lab Requisition [facility] Pathology & Laboratory Medicine - [facility] [address], [place] [id number] Outr Resulting Lab, Provider Social History Tobacco [...] Comments OPIATES AND METABOLITES CONFIRMATION PANEL Routine 12/01/2023 14:10 EST documented in this encounter Results * (ABNORMAL) OPIOIDS AND METABOLITES CONFIRMATION PANEL (12/01/2023 14:10 EST) Codeine Confirmation Negative <100 ng/mL 12/03/2023 13:19 EST [facility] Morphine Confirmation Negative <100 ng/mL 12/03/2023 13:19 EST [facility] Hydrocodone Confirmation >1000(A) <50 ng/mL 12/03/2023 13:19 EST [facility] Hydromorphone Confirmation 149(A) <50 ng/mL 12/03/2023 13:19 [facility] Oxycodone Confirmation Negative <50 ng/mL 12/03/2023 13:19 EST [facility] Oxymorphone Confirmation Negative <50 ng/mL 12/03/2023 13:19 EST [facility] Dihydrocodeine Confirmation 771(A) <50 ng/mL 12/03/2023 13:19 EST [facility] Norhydrocodone Confirmation >1000(A) <50 ng/mL 12/03/2023 13:19 EST [facility] Norhydromorphone Confirmation Negative <50 ng/mL 12/03/2023 13:19 EST [facility] Noroxycodone Confirmation Negative <50 ng/mL 12/03/2023 13:19 EST [facility] Noroxymorphone Confirmation Negative <50 ng/mL 12/03/2023 13:19 EST [facility] Urine URINE / Unknown 12/01/2023 1 4:10 EST 12/01/2023 21:32 EST Narrative [facility] - 12/03/2023 13:19 EST Testing performed by: [facility] [address] [place] [address], [facility] [address] [address] Electric Brain Wave Equipment Mechanic: Rah Aleman MD; CLIA # [id number] us Provider Outr Resulting Lab GEN LAB UNIT COLLECT ORDERABLES Final Result Performing Organization Address City/State/[facility] Co de Phone Number [facility] [address] [place] [address], [facility] [address] [place] [address], [facility] [phone] documented in this encounter Visit Diagnoses Not on filedocumented in this encounter Care Teams Store Sales Leader Relationship Specialty Start Date End Date Unknown, Provider, PCP - General 11/19/15 documented as of this encounter
--- OUTSIDE RECORDS SUMMARY | 2024-08-29 14:12 | XMS_ITS | Encounter Summary ---
Author Organization [facility] [place] [address] Care Team Providers Care Clinic Lead Name Role Phone Alek Esparza MD Primary Care Provider [phone] Reason for Visit * Reason Comments Medication Refill Humira Pen 40mg/0.4m l PNKT Encounter Details Date Type Department Care Team ([facility] Contact Info) Description 02/04/2023 Specialty [place] [address] Emily Lomeli, [facility] Social History Tobacco Use Types Packs/Day Years Used Date Smoking Tobacco: Never Smokeless Tobacco: Never Alcohol Use Standard Drinks/Week Comments Yes 16 (1 standard drink = 0.6 oz pu re alcohol) 2-3 drinks daily Sex and Gender Information Value Date Recorded Sex Assigned at Not on file Gender Identity Not on file Sexual Orientation Not on file documented as of this encounter Progress Notes * Emily Lomeli - 02/04/2023 10:04 AM EDT Clinical Management Plan: Refill Specialty Pharmacy Consultation; Emily Lomeli Comprehensive Medication Management (CMM) Enoc Esteban Mr. Enoc Esteban is a 63 y.o. (1960) male who was contacted in regard to a specialty medication refill reminder. Contact made with patient regarding Humira Pen 40mg/0.4ml PNKT. A review of the medication therapy was performed. The medication was refilled as scheduled, and all medication related questions and concerns were addressed. The specialty pharmacy staff will follow up with the patient 5-7 days prior to next refill. Was a change made to the Care Plan: No Allergies and Drug intolerance: Allergies Allergen Reactions ??? Allopurinol Rash ??? Ketoconazole Rash patient states the rash was from allopurinol not this, and he has used it without issue.%0ALast modified by Alysia Alcaraz 12-24-2020, 08:31 Medication Reconciliation Discrepancies (compared to [facility] med list) No Specialty Pharmacy Refill Questionnaire 02/04/2023 Refill Questionnaire What is the name of the specialty medication you are refilling? Humira Pen 40mg/0.4ml PNKT Are you taking any new medications? No Any new medical condition? No Any new allergies? No Any new side effects that are bothersome? No What date will you need this fill by? 02/16/2023 Adherence: Any missed doses? No Patient understands no changes to current drug regimen were made. Emily Lomeli 02/04/23 10:05 AM documented in this encounter Plan of Treatment Not on file documented as of this encounter Visit Diagnoses Not on filedocumented in this encounter Care Teams Clinic Lead Relationship Specialty Start Date End Date Alek Esparza MD [address] [place] [phone] PCP - General 09/03/10 04/05/23 documented as of this encounter
--- OUTSIDE RECORDS SUMMARY | 2024-08-29 14:12 | XMS_ITS | Encounter Summary ---
Author Organization [facility] [place] [address] Care Team Providers Care Carpet Cutter Name Role Phone Astrid Grier MD Primary Care Provider Reason for Visit * Reason Comments Medication Management Encounter Details Date Type Department Care Team (Late st Contact Info) Description 04/08/2023 Specialty [place] [phone] Surindre Aguiar Navya Social History Tobacco Use Types Packs/Day Years [...] as of this encounter Progress Notes * Surinder Aguiar RPH - 04/08/2023 8:28 AM EDT Specialty Pharmacy Consultation; Surinder Aguiar RPH Comprehensive Medication Management (CMM): Specialty Consult, Opt Out Enoc Jiangayaka Diagnosis: [place] Therapy Start Date: 08/26/2022 Contact in person or via telephone: Phone Mr. Enoc Esteban is a 63 y.o. (1960) male who was contacted in regard to specialty medication. Spoke with patient regarding Humira. A review of the medication therapy was performed. The medication was refilled as scheduled, and all medication related questions and concerns were addressed. [facility] with the patient 5-7 days prior to next refill. Is the patient willing to proceed with the Clinical Assessment? No Summary and Recommendations: Today I spoke to Enoc Mock Deidredick for a medication refill and he opted out of a 6 month consult. He reports no changes to his medications, allergies or medical conditions. He reports no side effects, signs/symptoms of an infection or any missed doses. He has no questions or concerns regarding the medication or administration. He is aware of the specialty pharmacy and will contact us if any needsarise. Economic Assessment: Patient is agreeable to medication copay: Yes Copay Amount: 0.00 Day Supply: 28 Date Needed: 04.18.23 Therapy Assessment: Appropriate Therapy: Yes Current Medication Dosing/Route/Frequency: Humira 40 mg subq q14d Additional equipment/supplies required: no Care Plan Reviewed and Approved by Pharmacist : Yes Problem List: Patient Active Problem List Diagnosis Code HTN (hypertension) I10 Tophaceous gout [id number].[id number] Hyperuricemia E79.0 Mild vitamin D deficiency E55.9 Moderate asthma J45.909 TYRON (obstructive sleep apnea) G47.33 Radiculopathy of cervical region M54.12 Atrial fibrillation I48.91 Lumbar radiculopathy M54.16 Obesity (BMI 30.0-34.9) E66.9 History of cervical spinal surgery Z98.890 History of lumbar surgery Z98.890 S/p Left SLIM on 04/12/20 (Dr. Lay) M16.12 Status post total hip replacement, left Z96.642 Dupuytren's contracture of right hand M72.0 Spondylosis of lumbar region without myelopathy or radiculopathy M47.816 Muscle pain M79.10 Microscopic hematuria R31.29 Lyme disease A69.20 Insulin resistance E88.81 Hyperlipidemia E78.5 Pain of left hip joint M25.552 Psychophysiologic insomnia F51.04 Sciatica M54.30 Tinea corporis B35.4 Transient ischemic attack G45.9 Chronic pain G89.29 Inflammatory arthritis M19.90 Medications Reviewed: Yes Medications reconciled: No Allergies Reviewed:Yes Allergies reconciled: No Pharmacist follow-up needed: Yes Informed patient of specialty pharmacy services: Yes (Optional) Patient unenrolls from routine specialty pharmacy services (Y/N): (Optional) If yes, services unenrolled from: Welcome Packet and Rights and Responsibilities: Patient provided welcome packet/rights and responsibilities: Yes Date Confirmed: 12/11/22 Confirmation: Verbal -Patient is aware a licensed pharmacist is available 24 hours a day, 7 days a week to discuss medication-related questions or concerns: Yes -Patient verbalizes understanding of the common side effect profile of their medication. The patient is able to call 911 or seek urgent care if signs/symptoms of allergy or harmful adverse reactions occur: Yes Patient understands no changes to current drug regimen were made at the appointment and that the pharmacist is providing recommendations (summary located at top of note) for provider review and follow up. Surinder Aguiar RPH 04/08/23 8:30 AM documented in this encounter Plan of Treatment Not on file documented as of this encounter Visit Diagnoses Not on filedocumented in this encounter Care Teams Carpet Cutter Relationship Specialty Start Date End Date Astrid Grier MD [address] [place] [address] PCP - General Family Medicine 04/06/23 documented as of this encounter
--- OUTSIDE RECORDS SUMMARY | 2024-08-29 14:12 | XMS_ITS | Encounter Summary ---
Author Organization [facility] [place] [address] Care Team Providers Care Camp Guard Name Role Phone Astrid Grier MD Primary Care Provider Encounter Details Date Type Department Care Team (Late st Contact Info) Description 08/10/2023 Refill [place] [phone] Baldomero Neal PA [address] [place] [address] Inflammatory arthritis Social History Tobacco Use Types Packs/Day Years [...] as of this encounter Visit Diagnoses Diagnosis Inflammatory arthritis Unspecified inflammatory polyarthropathy documented in this encounter Care Teams Camp Guard Relationship Specialty Start Date End Date Astrid Grier MD [address] [place] [address] PCP - General Family Medicine 04/06/23 documented as of this encounter
--- OUTSIDE RECORDS SUMMARY | 2024-08-29 14:12 | XMS_ITS | Encounter Summary ---
Author Organization [facility] [place] [address] Care Team Providers Care Flight Tower Dispatcher Name Role Phone Alek Esparza MD Primary Care Provider [phone] Reason for Visit * Reason Comments Specialty Refill Management Encounter Details Date Type Department Care Team (Late st Contact Info) Description 12/11/2022 Specialty [place] [phone] Katey Seay CPHT Social History Tobacco Use Types Packs/Day Years [...] as of this encounter Progress Notes * Katey Seay CPHT - 12/11/2022 12:46 PM EST Clinical Management Plan: Refill Specialty Pharmacy Consultation; Katey Seay CPHT Comprehensive Medication Management (CMM) Enoc Esteban Mr. Enoc Esteban is a 62 y.o. (1960) male who was contacted in regard to a specialty medication refill reminder. Contact made with patient regarding Humira. A review of the medication therapy was performed. The medication was refilled as scheduled, and all medication related questions and concerns were addressed. The specialty pharmacy staff will follow up with the patient 5-7 days prior tonext refill. Was a change made to the Care Plan: No Allergies and Drug intolerance: Allergies Allergen Reactions ??? Allopurinol Rash ??? Ketoconazole Rash patient states the rash was from allopurinol not this, and he has used it without issue.%0ALast modified by Alysia Alcaraz 12-24-2020, 08:31 Medication Reconciliation Discrepancies (compared to [facility] med list) No Specialty Pharmacy Refill Questionnaire Refill Questionnaire 12/11/2022 What is the name of the specialty medication you are refilling? Humira Are you taking any new medications? No Any new medical condition? No Any new allergies? No Any new side effects that are bothersome? No What date will you need this fill by? 12/17/2022 Adherence: Any missed doses? No Patient understands no changes to current drug regimen were made. Katey Seay CPHT 12/11/22 12:47 PM documented in this encounter Plan of Treatment Not on file documented as of this encounter Visit Diagnoses Not on filedocumented in this encounter Care Teams Flight Tower Dispatcher Relationship Specialty Start Date End Date Alek Esparza MD [address] [place] [phone] PCP - General 09/03/10 04/05/23 documented as of this encounter
--- OUTSIDE RECORDS SUMMARY | 2024-08-29 14:12 | XMS_ITS | Encounter Summary ---
[facility] [place] [address] Care Team Providers Care Senior Administrative Associate Name Role Phone Alek Esparza MD Primary Care Provider [phone] Encounter Details Date Type Department Care Team ([facility] st Contact Info) Description 02/19/2022 Telephone [place] [phone] Ashanti Mccarthy Social History Tobacco Use Types Packs/Day Years [...] on filedocumented in this encounter Care Teams Senior Administrative Associate Relationship Specialty Start Date End Date Alek Esparza MD [address] [place] [phone] PCP - General 09/03/10 04/05/23 documented as of this encounter
--- OUTSIDE RECORDS SUMMARY | 2024-08-29 14:12 | XMS_ITS | Encounter Summary ---
[place] [address] Care Team Providers Care Career Services Director Name Role Phone Alek Esparza MD Primary Care Provider [phone] Reason for Visit * Reason Comments Prior Authorization Humira Pen 40 mg/0.8 ml PNKT Encounter Details Date Type Department Care Team (Late st Contact Info) Description 08/18/2022 Specialty [place] [phone] Huan Ndiaye, [facility] Social History Tobacco Use Types Packs/Day Years [...] as of this encounter Progress Notes * Huan Ndiaye CPHT - 08/18/2022 11:53 AM EST [facility], Medication Prior Authorization Submission Patient: Enoc Jiangayaka Patient : 1960 Patient Address: [address] [place] [phone] (home) Medication Name: HUMIRA PEN 40 MG/0.8 ML SUBCUTANEOUS KIT Medication ID: [id number] Subscriber Insurance: [place] Medicaid Subscriber Insurance Comment: Fax: Physician: LOTTIE MTZ Physician Comment: Sent Via: [facility] Bullard: [id number] Ref/Case/PA#: Medication Strength Frequency Requested: Humira Pen 40 mg/0.8 ml PNKT Inject 40 mg (1 Pen) Subcutaneously Every 14 Days Qty/Day Supply: 12/09 New Start: New to Therapy Diagnosis & ICD-10 Code: Rheumatoid Arthritis M06.00 Patient Notified: Yes Submission Notes: - New Medication Huan Ndiaye CPHT 08/18/22 11:56 AM * Huan Ndiaye CPHT - 08/18/2022 11:53 AM EST [facility], Prior Authorization Approval Medication Name: HUMIRA PEN 40 MG/0.8 ML SUBCUTANEOUS KIT Medication ID: [id number] Approval Dates: 08/18/2022 to 11/18/2022 Insurance requirements/notes: - Patient May Fill With Pharmacy. Other Notes: None Case/Reference #: [id number] Approval notification Received via: Fax Copay: $3.00 Copay assistance: None Copay Notes: None Insurance mandated Pharmacy: D Pharmacy Fillable at [facility] Pharmacy: Yes Pharmacy staff will be reaching out to the patient to inform them of their medication's approval byecu health insurance. If applicable, a pharmacist will speak with the patient to offer our specialty pharmacy services and to arrange delivery of their medication. Huan Ndiaye CPHT 08/19/22 9:17 AM documented in this encounter Plan of Treatment Not on file documented as of this encounter Visit Diagnoses Not on filedocumented in this encounter Care Teams Career Services Director Relationship Specialty Start Date End Date Alek Esparza MD [address] [place] [phone] PCP - General 09/03/10 04/05/23 documented as of this encounter
--- OUTSIDE RECORDS SUMMARY | 2024-08-29 14:12 | XMS_ITS | Encounter Summary ---
Author Organization [facility] [place] [address] Care Team Providers Care Bailiff Name Role Phone Alek Esparza MD Primary Care Provider [phone] Encounter Details Date Type Department Care Team (Latest Contact Info) Description 01/21/2023 Travel Social History Tobacco Use Types Packs/Day [...] on filedocumented in this encounter Care Teams Bailiff Relationship Specialty Start Date End Date Alek Esparza MD [address] [place] [phone] PCP - General 09/03/10 04/05/23 documented as of this encounter
--- OUTSIDE RECORDS SUMMARY | 2024-08-29 14:12 | XMS_ITS | Encounter Summary ---
Author Organization [facility] Address [facility] [place] [address] Care Team Providers Care Carburizer Name Role Phone Astrid Grier MD Primary Care Provider Encounter Details Date Type Department Care Team (Late st Contact Info) Description 11/10/2023 Tele[place] [phone] Kirsten Siddiqui RN Social History Tobacco Use Types Packs/Day Years Used Date Smoking Tobacco: Never Smokeless Tobacco: Never Alcohol Use Standard Drinks/Week Comments Yes 16 (1 standard drink = 0.6 oz pu re alcohol) 2-3 drinks daily [facility] Inpatient Questions Answer Date Recorded Does Anyone [...] encounter Miscellaneous Notes * Telephone Encounter - Kirsten Siddiqui RN - 12/11/2023 9:58 AM EST Provider sent message with the lab results to the patient. * Telephone Encounter - Kirsten Siddiqui RN - 11/10/2023 5:01 PM EST Patient called, asking for test results. * Telephone Encounter - Kirsten Siddiqui RN - 11/10/2023 5:01 PM EST Copied from [facility] #[id number]. Topic: Specialty Dept CRMs - Test Results >> Nov 10, 2023 3:05 PM Trudy Hernandez wrote: Test Results Request Specialist: Val Relationship (if other than patient-full name): self Ordering Provider: Yvette Type of Test: blood Date of Test: 11/04/2023 Where Was This Test Performed: [facility] documented in this encounter Plan of Treatment Not on file documented as of this encounter Visit Diagnoses Not on filedocumented in this encounter Care Teams Carburizer Relationship Specialty Start Date End Date Astrid Grier MD [address] [place] [address] PCP - General Family Medicine 04/06/23 documented as of this encounter
--- OUTSIDE RECORDS SUMMARY | 2024-08-29 14:12 | XMS_ITS | Encounter Summary ---
Author Organization [facility] [place] [address] Care Team Providers Care Wood Type Finisher Name Role Phone Alek Esparza MD Primary Care Provider [phone] Reason for Visit * Reason Comments Medication Refill Encounter Details Date Type Department Care Team ([facility] st Contact Info) Description 11/11/2021 Refill [place] [phone] Baldomero Neal PA [address] [address] Social History Tobacco Use Types Packs/Day Years [...] on filedocumented in this encounter Care Teams Wood Type Finisher Relationship Specialty Start Date End Date Alek Esparza MD [address] [place] [phone] PCP - General 09/03/10 04/05/23 documented as of this encounter
--- OUTSIDE RECORDS SUMMARY | 2024-08-29 14:12 | XMS_ITS | Encounter Summary ---
Author Organization [place] [address] Care Team Providers Care Inter Com Servicer Name Role Phone Alek Esparza MD Primary Care Provider [phone] Encounter Details Date Type Department Care Team ([facility] st Contact Info) Description 09/13/2021 Orders [place] [phone] Baldomero Neal PA [address] [place] [address] Medication monitoring encounter Social History Tobacco Use Types Packs/Day Years [...] as of this encounter Visit Diagnoses Diagnosis Medication monitoring encounter Encounter for therapeutic drug monitoring documented in this encounter Care Teams Inter Com Servicer Relationship Specialty Start Date End Date Alek Esparza MD [address] [place] [phone] PCP - General 09/03/10 04/05/23 documented as of this encounter
--- OUTSIDE RECORDS SUMMARY | 2024-08-29 14:12 | XMS_ITS | Encounter Summary ---
Author Organization [facility] [place] [address] Care Team Providers Care Media Aid Name Role Phone Astrid Grier MD Primary Care Provider Reason for Visit * Reason Comments Specialty Refill Management Encounter Details Date Type Department Care Team (Late st Contact Info) Description 08/10/2023 Specialty [place] [phone] Anastasiia Donaldson Navya Social History Tobacco Use Types Packs/Day [...] as of this encounter Progress Notes * Anastasiia Donaldson RPH - 08/10/2023 12:57 PM EDT Clinical Management Plan: Refill Specialty Pharmacy Consultation; Anastasiia Donaldson Navya Comprehensive Medication Management (CMM) Enoc Esteban Mr. [...] Allergies and Drug intolerance: Allergies Allergen Reactions Allopurinol Rash Ketoconazole Rash patient states the rash was from allopurinol not this, and he has used it without issue.%0ALast modified by Alysia Alcaraz 12-24-2020, 08:31 Medication Reconciliation Discrepancies (compared to [facility] med list) No Specialty Pharmacy Refill Questionnaire More data exists 08/10/2023 Refill Questionnaire What is the name of the specialty medication you are refilling? Humira Are you taking any new medications? No Any new medical condition? No Any new allergies? No Any new side effects that are bothersome? No What date will you need this fill by? 08/19/2023 Adherence: Any missed doses? No Patient understands no changes to current drug regimen were made. Anastasiia Donaldson RPH 08/10/23 12:59 PM documented in this encounter Plan of Treatment Not on file documented as of this encounter Visit Diagnoses Not on filedocumented in this encounter Care Teams Media Aid Relationship Specialty Start Date End Date Astrid Grier MD [address] [place] [address] PCP - General Family Medicine 04/06/23 documented as of this encounter
--- OUTSIDE RECORDS SUMMARY | 2024-08-29 14:12 | XMS_ITS | Encounter Summary ---
Author Organization [facility] Address [facility] [address] Care Team Providers Care Oracle Hyperion Consultant Name Role Phone Astrid Grier MD Primary Care Provider Encounter Details Date Type Department Care Team (Latest Contact Info) Description 10/23/2023 9:30 AM EST TH Visit (TeleHealth) [place] [phone] Baldomero Neal PA [address] [place] [address] Tophaceous gout (Primary Dx); Arthralgia, unspecified joint; Lumbar radiculopathy; History of lumbar surgery; Medication monitoring encounter Social History Tobacco Use [...] as of this encounter Progress Notes * Baldomero Neal PA - 10/23/2023 9:30 AM ESTSummary: ra/ gout Rheumatology Outpatient Note Chart review conducted prior to the visit includes review of PMHx, medications, allergies, and prior office notes. The most pertinent findings are listed below. The Patient History Form was reviewed with the patient, which included review of ROS, social hx, pmhx, famhx, current and prior medications, allergies, IZs, and ADLs. The form is scanned into the patient's chart. This patient, because they are at increased risk for complications of COVID-19 due to underlying medical conditions AND/OR because there is a public health emergency, did not come to the office for non-emergency care. The patient verbally consented to this electronic visit. The patient understands the limitations of not being physically examined and that we may not be able to address all issues. The concept of telemedicine has been described to the patient. Patient has been informed of the anticipated benefits and possible risks. Patient understands information provided regarding telemedicine, has had the opportunity to ask questions about this information, and all questions have been answered to the patient's satisfaction. Patient consents for the use of telemedicine in his or her medical care and authorizes the transmission of any relevant medical information to providers and staff involved in the patient's medical or mental health care. History of Present Illness: Enoc Esteban is a 63 y.o. male who presents today for evaluation of SNRA. 08.21.23:Impression/Recommendations : Enoc Esteban is a 63 y.o. male who presents today with seronegative rheumatoid arthritis patient reporting uncertain efficacy of Humira with no significant episodes of joint swelling or pain his arthralgias seem to smolder may be multifactorial. He denies any gout flares. After review of his options he elected to: Discontinue Humira for seronegative rheumatoid arthritis call in 2 months to report whether or not his arthralgias change. Further changes pending his clinical course. Continue Uloric for hyperuricemia gout clinically quiet Continue cymbalta as previous Update laboratory studies today at [facility] Follow-up 8 to 10 weeks via telehealth sooner if otherwise indicated. Telehealth being utilized dueto distance. Interval History: Patient presents today for follow-up. He again reports uncertain efficacy on Humira. He has about an hour of morning stiffness. He has an upcoming cardiology evaluation. He denies any gout episodes. He endorses some ongoing right knee pain he has a history of surgery and numbness there. Time to time he finds that his ankles swell. He denies any chest pain or B symptoms. Review of Systems Constitutional: Negative for diaphoresis, weight loss and chills. Respiratory: Negative for shortness of breath, wheezing and hemoptysis. Gastrointestinal: Negative for vomiting. HENT: Negative for throat clearing and voice change. Hematologic/Lymphatic: Negative. Allergic/Immunologic: Negative for recurrent infections. Endocrine: Negative for polydipsia, polyphagia, polyuria and Cushingoid appearance. Cardiovascular: Negative for syncope. Skin: Negative for photosensitivity. Allergies Allergies Allergen Reactions Allopurinol Rash Ketoconazole Rash patient states the rash was from allopurinol not this, and he has used it without issue.%0ALast modified by Alysia Alcaraz 12-24-2020, 08:31 Medications Current Outpatient Medications on File Prior to Visit Medication Sig Dispense Refill atorvastatin (Lipitor) 20 mg tablet Take 20 mg by mouth. Adalimumab (Humira Pen) 40 mg/0.8 mL Pen Injector Kit Inject 0.8 mLs subcutaneously every 14 days. [address] (Cymbalta) [address] capsule Take 2 capsules by mouth nightly. 180 capsule 1 triamcinolone (KENALOG) 0.025 % Cream APPLY A THIN FILM TOPICALLY TWO TIMES A DAY NEEDED FOR ITCHING/ RASH/ REDNESS naloxone (Narcan) 4 mg/actuation [place], Non-Aerosol by Nasal route. hydrOXYzine (ATARAX) 50 mg Tablet TAKE ONE TABLET BY MOUTH EVERY DAY AT DINNER traZODone (Desyrel) 50 mg Tablet TAKE ONE TABLET BY MOUTH AT BEDTIME HYDROcodone-acetaminophen ([place]) 10-325 mg Tablet TAKE 2 TABLETS BY MOUTH 3 TIMES DAILY NEEDED FOR 28 DAYS acetaminophen (Tylenol) 500 mg Tablet Take 2 tablets by mouth every 8 hours. Take as directed around the clock for ten days after your surgery. After that you can take Tylenol as needed per package insert. (Patient taking differently: Take 500 mg by mouth every 8 hours. Take as directed around the clock for ten days after your surgery. After that you can take Tylenol as needed per package insert.) febuxostat (Uloric) 40 mg Tablet Take 1 tablet by mouth daily. 90 tablet 3 ELIQUIS 5 mg Tablet Resume 10 days after surgery. (Patient taking differently: Take 5 mg by mouth 2times daily.) 6 ipratropium-albuterol (COMBIVENT RESPIMAT) 20-100 mcg/actuation Mist Inhale 1 puff into the lungs as needed for Wheezing. VITAMIN D 50,000 unit Capsule Take 50,000 Units by mouth every 14 days. 3 metoprolol succinate (TOPROL-XL) 50 mg Tablet Sustained Release 24 hr Take 1 tablet by mouth daily.90 tablet 3 VIAGRA 100 mg Tablet TAKE 1 TABLET BY MOUTH DAILY NEEDED MAX OF 1 TABLET IN 24 HOURS 12 losartan (COZAAR) 50 mg Tablet Take 1 tablet by mouth daily. 30 tablet 5 zolpidem (AMBIEN) 10 mg Tablet Take 10 mg by mouth nightly as needed. No current facility-administered medications on file prior to visit. PMHX Patient Active Problem List Diagnosis Code HTN [...] hematuria R31.29 Lyme disease A69.20 Insulin resistance E88.819 Hyperlipidemia E78.5 Pain of left hip joint M25.552 Psychophysiologic insomnia F51.04 Sciatica M54.30 Tinea corporis B35.4 Transient ischemic attack G45.9 Chronic pain G89.29 Inflammatory arthritis M19.90 Diverticulosis of colon K57.30 SurgHX Past Surgical History: Procedure Laterality Date PRO ARTHROPLASTY ACETABULAR/PROX FEM PROSTC AGRFT/ALGRFT Left 04/12/2020 TOTAL HIP ARTHROPLASTY, ANTERIOR APPROACH (WRVU 20.72) performed by Isidoro Lay MD at [facility] MAIN OR PRO CLOSED TREAT TOE FX 02/08/2013 CLOSED TREATMENT FX PHALANX OR PHALANGES performed by Rohan Duarte MD at [facility] OSC PRO LAMINOTOMY, LUMBAR DISK, 1 INTRSP N/A 10/25/2019 LAMINOTOMY, DECOMPRESSION, FORAMINOTOMY, LUMBAR (WRVU 13.18) [facility] PRO MICROSURG TECHNIQUES, REQ OPER MICROSCOPE N/A 10/25/2019 MICROSCOPE USE (WRVU 3.46) performed by Denzel Madison MD at [facility] MAIN OR PRO REMOVAL OF ELBOW BURSA Right 10/16/2014 EXCISION OF OLECRANON BURSA performed by Anupama Howard MD at [facility] OSC Physical Examination: There were no vitals taken for this visit. Physical Exam HENT: Nose: Nose normal. Pulmonary: Effort: No respiratory distress. Neurological: Mental Status: He is alert. Psychiatric: Mood and Affect: Mood normal. Behavior: Behavior normal. Thought Content: Thought content normal. Judgment: Judgment normal. Impression/Recommendations : Enoc Esteban is a 63 y.o. 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
--- OUTSIDE RECORDS SUMMARY | 2024-08-29 14:12 | XMS_ITS | Encounter Summary ---
Author Organization [facility] [place] [address] Care Team Providers Care Roller Maker Name Role Phone Alek Esparza MD Primary Care Provider [phone] Reason for Visit * Reason Comments Medication Refill Encounter Details Date Type Department Care Team ([facility] st Contact Info) Description 11/15/2022 [place] [phone] Baldomero Neal PA [address] [place] [address] Social History Tobacco Use Types Packs/Day Years [...] on filedocumented in this encounter Care Teams Roller Maker Relationship Specialty Start Date End Date Alek Esparza MD [address] [place] [phone] PCP - General 09/03/10 04/05/23 documented as of this encounter
--- OUTSIDE RECORDS SUMMARY | 2024-08-29 14:12 | XMS_ITS | Encounter Summary ---
Author Organization [facility] Address [facility] [address] Care Team Providers Care Television Writer Name Role Phone Alek Esparza MD Primary Care Provider [phone] Reason for Visit * Reason Comments Medication Management Encounter Details Date Type Department Care Team (Late st Contact Info) Description 01/13/2023 Specialty Pharmacy [place] [phone] Surinder Aguiar [facility] Social History Tobacco Use Types Packs/Day Years [...] Progress Notes * Surinder Aguiar RPH - 01/13/2023 12:23 PM EDT Clinical Management Plan: Refill Specialty Pharmacy Consultation; Surinder Aguiar [facility] Comprehensive Medication Management (CMM) Enoc Esteban Mr. [...] 12-24-2020, 08:31 Medication Reconciliation Discrepancies (compared to [facility] med list) No Specialty Pharmacy Refill Questionnaire 01/13/2023 Refill Questionnaire What is the name of the specialty medication you are refilling? Humira Are you taking any new medications? No Any new medical condition? No Any new allergies? No Any new side effects that are bothersome? No What date will you need this fill by? 01/17/2023 Adherence: Any missed doses? No Patient understands no changes to current drug regimen were made. Surinder Aguiar RPH 01/13/23 12:24 PM documented in this encounter Plan of Treatment Not on file documented as of this encounter Visit Diagnoses Not on filedocumented in this encounter Care Teams Television Writer Relationship Specialty Start Date End Date Alek Esparza MD [address] [place] [phone] PCP - General 09/03/10 04/05/23 documented as of this encounter
--- OUTSIDE RECORDS SUMMARY | 2024-08-29 14:12 | XMS_ITS | Encounter Summary ---
Author Organization Formerly [facility] [place] [address] Care Team Providers Care Rn Staffing Name Role Phone Astrid Grier MD Primary Care Provider Reason for Visit * Reason Comments Specialty Refill Management humira Encounter Details Date Type Department Care Team ([facility] st Contact Info) Description 07/07/2023 Specialty [place] [phone] Marti Collins, [facility] Social History Tobacco Use Types Packs/Day Years [...] as of this encounter Progress Notes * Marti Collins - 07/07/2023 2:47 PM EDT Clinical Management Plan: Refill Specialty Pharmacy Consultation; Marti Collins Comprehensive Medication Management (CMM) Enoc Esteban Mr. [...] 12-24-2020, 08:31 Medication Reconciliation Discrepancies (compared to [facility] med list) No Specialty Pharmacy Refill Questionnaire More data exists 07/07/2023 Refill Questionnaire What is the name of the specialty medication you are refilling? humira Are you taking any new medications? No Any new medical condition? No Any new allergies? No Any new side effects that are bothersome? No What date will you need this fill by? 07/14/2023 Adherence: Any missed doses? No Patient understands no changes to current drug regimen were made. Marti Collins 07/07/23 2:48 PM documented in this encounter Plan of Treatment Not on file documented as of this encounter Visit Diagnoses Not on filedocumented in this encounter Care Teams Rn Staffing Relationship Specialty Start Date End Date Astrid Grier MD [address] [place] [address] PCP - General Family Medicine 04/06/23 documented as of this encounter
--- OUTSIDE RECORDS SUMMARY | 2024-08-29 14:12 | XMS_ITS | Encounter Summary ---
Author Organization [facility] Address [facility] [place] [address] Care Team Providers Care Material Control Clerk Name Role Phone Astrid Grier MD Primary Care Provider Encounter Details Date Type Department Care Team (Late st Contact Info) Description 10/29/2023 [place] [phone] Baldomero Neal PA [address] [place] [address] Social History Tobacco Use Types Packs/Day Years [...] encounter Miscellaneous Notes * Telephone Encounter - Baldomero Neal PA - 10/29/2023 12:36 PM EST Awaiting labs undergoing workup for afib Will complete at [facility] documented in this encounter Plan of Treatment Scheduled Orders Name Type Priority Associated Diagnoses Orde r Schedule CBC (with Diff) Lab Routine Medication monitoring encounter As Needed for 4 Occurrences starting 10/29/2023 until 10/28/2024 Comprehensive metabolic panel (non-fasting) Lab Routine Medication monitoring encounter Every 3 months for 4 Occurrences starting 10/29/2023 until 10/28/2024 Sedimentation rate Lab Routine Medication monitoring encounter Every 3 months for 4 Occurrences starting 10/29/2023 until 10/28/2024 documented as of this encounter Visit Diagnoses Diagnosis Medication monitoring encounter Encounter for therapeutic drug monitoring documented in this encounter Care Teams Material Control Clerk Relationship Specialty Start Date End Date Astrid Grier MD [address] [place] [address] PCP - General Family Medicine 04/06/23 documented as of this encounter
--- OUTSIDE RECORDS SUMMARY | 2024-08-29 14:12 | XMS_ITS | Encounter Summary ---
Author Organization [facility] [place] [address] Care Team Providers Care Case Aide Name Role Phone Astrid Grier MD Primary Care Provider Reason for Visit * Reason Onset Date Comments Labs Only 11/02/2023 Encounter Details Date Type Department Care Team (Late st Contact Info) Description 11/02/2023 [place] [phone] Fabienne Deleon, RN Labs Only Social History Tobacco Use Types Packs/Day Years [...] encounter Miscellaneous Notes * Telephone Encounter - Fabienne Deleon RN - 11/02/2023 12:17 PM EST Copied from CRM #[id number]. Topic: Specialty Dept CRMs - Generic Call >> Nov 02, 2023 11:29 AM Remington Sy wrote: Specialist: Dr. Neal Relationship (if other than patient-full name): self Reason for Call: calling to let provider know he had his labs done. documented in this encounter Plan of Treatment Not on file documented as of this encounter Visit Diagnoses Not on filedocumented in this encounter Care Teams Case Aide Relationship Specialty Start Date End Date Astrid Grier MD [address] [place] [address] PCP - General Family Medicine 04/06/23 documented as of this encounter
--- OUTSIDE RECORDS SUMMARY | 2024-08-29 14:12 | XMS_ITS | Encounter Summary ---
Author Organization [facility] Address [facility] [place] [address] Care Team Providers Care Garment Manufacturer Name Role Phone Alek Esparza MD Primary Care Provider [phone] Encounter Details Date Type Department Care Team (Late st Contact Info) Description 10/01/2022 2:30 PM EST Office [place] [phone] Baldomero Neal PA [address] [place] [address] Inflammatory arthritis (Primary Dx); Medication monitoring encounter; Tophaceous gout; Arthralgia, unspecified joint; History of lumbar surgery; Insulin resistance Social History Tobacco Use Types Packs/Day Years [...] Sign Reading Time Taken Comments Blood Pressure 125/74 10/01/2022 2:33 PM EST Pulse 84 10/01/2022 2:33 PM EST Temperature 36.7 ??C (98.1 ??F) 10/01/2022 2 :33 PM EST Respiratory Rate - - Oxygen Saturation 100% 10/01/2022 2:3 3 PM EST Inhaled Oxygen Concentration - - Weight 116.2 kg (256 lb 3.2 oz) 10/01/2022 2:33 PM EST Height 177.8 cm (5' 10) 10/01/2022 2:3 3 PM EST patient reported Body Mass Index 36.76 10/01/2022 2:33 PM EST documented in this encounter Patient Instructions * Patient Instructions* Baldomero Neal PA - 10/01/2022 2:30 PM EST -Continue Humira -Continue other medications as previous -Labs today -Follow up 3 months documented in this encounter Progress Notes * Baldomero Neal PA - 10/01/2022 2:30 PM ESTSummary: Gout/ SNRA Rheumatology Outpatient Note Chart review conducted prior to the visit includes review of PMHx, medications, allergies, and prior office notes. The most pertinent findings are listed below. The Patient History Form was reviewed with the patient, which included review of ROS, social hx, pmhx, famhx, current and prior medications, allergies, IZs, and ADLs. The form is scanned into the patient's chart. History of Present Illness: Enoc Esteban is a 62 y.o. male who presents today for evaluation of Gout/ SNRA. 08.04.22:Impression/Recommendations : Enoc Esteban is a 62 y.o. male who presents today with Gout clinically controlled on uloric 40 mg per day and ongoing steroid responsive arthralgias presumed SNRA with ongoing stiffness and joint pain despite SSS and HcQ. Patient with fluctuating history of lft elevations. Given his inability to take MTX because of laboratory findings Patient elected for a trial of Humira SER. ?? - Discontinue SSS - Discontinue HcQ - Initiate a trial of Humira - Continue other medications as previous - Follow up in 2 months Interval History: Patient presents today for follow-up of seronegative rheumatoid arthritis along with gout he reports his gout symptoms have been quiet he continues on Uloric 40 mg/day. At his last visit we discontinued sulfasalazine and hydroxychloroquine and initiated a trial of Humira he has had 3 injections thus far he notes since being on Humira he is able to sleep better. He does think he has less arthralgia s she can bend down without significant difficulty there is been no fevers infectious-like symptomsor weight loss. He denies any injection site reactions. Review of Systems Constitutional: Negative for diaphoresis, absenteeism, fever and weight loss. Respiratory: Negative for shortness of breath, chest discomfort, PND, wheezing and hemoptysis. Gastrointestinal: Negative for steatorrhea, diarrhea and trouble swallowing. HENT: Negative. Psychiatric/Behavioral: Negative for social aversion. Hematologic/Lymphatic: Negative. Allergic/Immunologic: Negative for recurrent infections. Musculoskeletal: Negative. Positive for stiffness. Endocrine: Negative for polydipsia, polyphagia, polyuria and Cushingoid appearance. Cardiovascular: Negative for syncope. Neurological: Negative for vertigo. Skin: Negative for dry skin, urticaria, blister, photosensitivity and erythema. Allergies Allergies Allergen Reactions ??? Allopurinol Rash Medications Current Outpatient Medications on File Prior to Visit Medication Sig Dispense Refill ??? sulfaSALAzine (Azulfidine) 500 mg Tablet Take 1,000 mg by mouth. ??? Adalimumab (Humira Pen) 40 mg/0.8 mL Pen Injector Kit Inject 0.8 mLs subcutaneously every 14 days. 4 kit 6 ??? hydrOXYchloroQUINE (Plaquenil) 200 mg Tablet TAKE 1 TABLET BY MOUTH DAILY 30 tablet 3 ??? DULoxetine DR (Cymbalta) 30 mg Capsule, Delayed Release(E.C.) TAKE 1 CAPSULE BY MOUTH TWICE DAILY 60 capsule 3 ??? hydrOXYzine (ATARAX) 50 mg Tablet TAKE ONE TABLET BY MOUTH EVERY DAY AT DINNER ??? traZODone (Desyrel) 50 mg Tablet TAKE ONE TABLET BY MOUTH AT BEDTIME ??? HYDROcodone-acetaminophen ([place]) 10-325 mg Tablet TAKE 2 TABLETS BY MOUTH 3 TIMES DAILY NEEDED FOR 28 DAYS ??? acetaminophen (Tylenol) 500 mg Tablet Take 2 [...] take Tylenol as needed per package insert.) ??? febuxostat (Uloric) 40 mg Tablet Take 1 tablet by mouth daily. 90 tablet 3 ??? ELIQUIS 5 mg Tablet Resume 10 days after surgery. (Patient taking differently: Take 5 mg by mouth 2 times daily.) 6 ??? ipratropium-albuterol (COMBIVENT RESPIMAT) 20-100 mcg/actuation Mist Inhale 1 puff into the lungs as needed for Wheezing. ??? VITAMIN D 50,000 unit Capsule Take 50,000 Units by mouth every 14 days. 3 ??? metoprolol succinate (TOPROL-XL) 50 mg Tablet Sustained Release 24 hr Take 1 tablet by mouth daily. 90 tablet 3 ??? VIAGRA 100 mg Tablet TAKE 1 TABLET BY MOUTH DAILY NEEDED MAX OF 1 TABLET IN 24 HOURS 12 ??? losartan (COZAAR) 50 mg Tablet Take 1 tablet by mouth daily. 30 tablet 5 ??? zolpidem (AMBIEN) 10 mg Tablet Take 10 mg by mouth nightly as needed. No current facility-administered medications on file prior to visit. PMHX Patient Active Problem List Diagnosis Code ??? HTN (hypertension) I10 ??? Tophaceous gout M1A.9XX1 ??? Hyperuricemia E79.0 ??? Mild vitamin D deficiency E55.9 ??? Moderate asthma J45.909 ??? TYRON (obstructive sleep apnea) G47.33 ??? Radiculopathy of cervical region M54.12 ??? Atrial fibrillation I48.91 ??? Lumbar radiculopathy M54.16 ??? Obesity (BMI 30.0-34.9) E66.9 ??? History of cervical spinal surgery Z98.890 ??? History of lumbar surgery Z98.890 ??? S/p Left SLIM on 04/12/20 (Dr. Lay) M16.12 ??? Status post total hip replacement, left Z96.642 ??? Dupuytren's contracture of right hand M72.0 ??? Spondylosis of lumbar region without myelopathy or radiculopathy M47.816 ??? Muscle pain M79.10 ??? Microscopic hematuria R31.29 ??? Lyme disease A69.20 ??? Insulin resistance E88.81 ??? Hyperlipidemia E78.5 ??? Pain of left hip joint M25.552 ??? Psychophysiologic insomnia F51.04 ??? Sciatica M54.30 ??? Tinea corporis B35.4 ??? Transient ischemic attack G45.9 ??? Chronic pain G89.29 SurgHX Past Surgical History: Procedure Laterality Date ??? PRO CLOSED TREAT TOE FX 02/08/2013 CLOSED TREATMENT FX PHALANX OR PHALANGES performed by Rohan Duarte MD at [facility] ??? PRO LAMINOTOMY, LUMBAR DISK, 1 INTRSP N/A 10/25/2019 LAMINOTOMY, DECOMPRESSION, FORAMINOTOMY, LUMBAR (WRVU 13.18) [facility] ??? PRO MICROSURG TECHNIQUES, REQ OPER MICROSCOPE N/A 10/25/2019 MICROSCOPE USE (WRVU 3.46) performed by Denzel Madison MD at [facility] OR ??? PRO REMOVAL OF ELBOW BURSA Right 10/16/2014 EXCISION OF OLECRANON BURSA performed by Anupama Howard MD at [facility] ??? PRO TOTAL HIP ARTHROPLASTY Left 04/12/2020 TOTAL HIP ARTHROPLASTY, ANTERIOR APPROACH (WRVU 20.72) performed by Isidoro Lay MD at [facility] OR Physical Examination: BP 125/74 (BP Location (NBP): Right arm, Patient Position: Sitting, BP Cuff Sizes: Large Adult (32-43 cm)) Pulse 84 Temp 36.7 ??C (98.1 ??F) (Temporal) Ht 177.8 cm (5' 10) Comment: patient reported Wt 116.2 kg (256 lb 3.2 oz) SpO2 100% BMI 36.76 kg/m?? Musculoskeletal: No synovitis erythema warmth noted upper or lower extremities osteoarthritic features throughout cardiology use short plan Physical Exam HENT: Head: Normocephalic and atraumatic. Right Ear: External ear normal. Left Ear: External ear normal. Nose: Nose normal. Eyes: Conjunctiva/sclera: Conjunctivae normal. Cardiovascular: Rate and Rhythm: Regular rhythm. Heart sounds: Normal heart sounds. No friction rub. No gallop. Pulmonary: Effort: Pulmonary effort is normal. No respiratory distress. Breath sounds: Normal breath sounds. No stridor. No wheezing, rhonchi or rales. Chest: Chest wall: No tenderness. Abdominal: Palpations: Abdomen is soft. Tenderness: There is no abdominal tenderness. There is no guarding or rebound. Hernia: No hernia is present. Musculoskeletal: General: No swelling, tenderness, deformity or signs of injury. Normal range of motion. Right lower leg: No edema. Left lower leg: No edema. Skin: General: Skin is warm and dry. Coloration: Skin is not jaundiced or pale. Findings: No bruising, erythema, lesion or rash. Neurological: Mental Status: He is alert and oriented to person, place, and time. Psychiatric: Mood and Affect: Mood normal. Behavior: Behavior normal. Thought Content: Thought content normal. Judgment: Judgment normal. Laboratory Data: Component Latest Ref Rng & Units 10/01/2022 WBC 4.0 - 9.5 x10(3)/mcL 7.4 RBC 4.58 - 5.54 x10(6)/mcL 4.35 (L) Hemoglobin 13.7 - 16.5 g/dL 14.7 Hematocrit 40.5 - 48.5 % 44.3 MCV 82.9 - 93.1 fL 101.8 (H) MCH 27.5 - 32.1 pg 33.8 (H) MCHC 32.0 - 35.7 g/dL 33.2 Platelets 145 - 357 x10(3)/mcL 216 RDWSD 36.0 - 45.0 fL 55.1 (H) RDWCV 11.4 - 13.8 % 14.7 (H) MPV 7.6 - 12.9 fL 10.1 nRBC % Auto % 0.0 nRBC Abs Auto 0.000 - 0.000 x10(3)/mcL 0.000 Neutrophils % % 35.3 Neutr Abs (ANC) 1.70 - 6.10 x10(3)/mcL 2.59 Lymphocytes % % 49.7 Lymphocytes Abs 0.9 - 3.2 x10(3)/mcL 3.7 (H) Monocytes % % 11.3 Monocyte Abs 0.3 - 0.9 x10(3)/mcL 0.8 Eosinophils % % 2.4 Eosinophils Abs 0.0 - 0.4 x10(3)/mcL 0.2 Basophils % % 1.2 Basophils Abs 0.0 - 0.1 x10(3)/mcL 0.1 Immature Gran % % 0.10 Lou Gran Abs 0.00 - 0.04 x10(3)/mcL 0.01 Impression/Recommendations : Enoc Esteban is a 62 y.o. male who presents today with seronegative rheumatoid arthritis patient on trial of Humira with some improvements in his arthralgias denying any recent gout attacks or red warm swollen joints. After review of his options he elected to: Continue Humira for seronegative rheumatoid arthritis Continue Uloric for hyperuricemia gout clinically quiet Update laboratory studies today Follow-up 2 to 4 months sooner if indicated Patient in agreement. documented in this encounter Plan of Treatment Not on file documented as of this encounter Procedures Procedure Name Priority Date/Time Associated Diagnosis Comments HEMOGRAM Routine 10/01/2022 3:11 PM EST Medication monitoring encounter DIFFERENTIAL, AUTOMATED Routine 10/01/2022 3:11 PM EST Medication monitoring encounter HC CBC,PLT & AUTO DIFF Routine 10/01/2022 3:11 PM EST Medication monitoring encounter HC VENIPUNCTURE Routine 10/01/2022 3:11 PM EST Medication monitoring encounter documented in this encounter Results * (ABNORMAL) Differential, Automated (10/01/2022 3:11 PM EST) Neutrophil % 35.3 % [facility] Neutrophil Absolute 2.59 1.70 - 6.10 x10(3)/mc L [facility] Lymph % 49.7 % [facility] Lymphocytes Abs 3.7(H) 0.9 - 3.2 x10(3)/mc L [facility] Monocyte % 11.3 % [facility] Monocyte Abs 0.8 0.3 - 0.9 x10(3)/mc L [facility] Eos % 2.4 % [facility] Eosinophils Abs 0.2 0.0 - 0.4 x10(3)/mc L [facility] Basophil % 1.2 % [facility] Baso Absolute 0.1 0.0 - 0.1 x10(3)/mc L [facility] Immature Gran % 0.10 % [facility] Comment: Immature granulocytes(IG's)percentage and absolute count will include metamyelocytes, myelocytes, and promyelocytes. Blood smears from CBCs yielding IG's will be scanned manually for concordance. If this scan disagrees with the automated IG or if promyelocytes are noted, a manual differential will be performed. Immature Gran Absolute 0.01 0.00 - 0.04 x10(3)/mc L [facility] Blood 10/01/2022 3:11 PM EST 10/01/2022 3:15 PM EST Narrative Resulting Agency Comment Spec In Lab Baldomero COSME HEMATOLOGY ORDERABL ES [facility] [place] [address] * (ABNORMAL) Hemogram (10/01/2022 3:11 PM EST) White Blood Cell 7.4 4.0 - 9.5 x10(3)/ L [facility] Red Blood Cell 4.35(L) 4.58 - 5.54 x10(6)/ L [facility] Hemoglobin 14.7 13.7 - 16.5 g/dL [facility] Hematocrit 44.3 40.5 - 48.5 % [facility] Mean Cell Volume 101.8(H) 82.9 - 93.1 fL [facility] Mean Cell Hemoglobin 33.8(H) 27.5 - 32.1 pg [facility] Mean Cell Hemoglobin Concentration 33.2 32.0 - 35.7 g/dL [facility] Platelet 216 145 - 357 x10(3)/ L [facility] RDW Standard Deviation 55.1(H) 36.0 - 45.0 fL [facility] RDW coefficient of variation 14.7(H) 11.4 - 13.8 % [facility] Mean Platelet Volume 10.1 7.6 - 12.9 fL [facility] NRBC% auto 0.0 % [facility] NRBC Absolute 0.000 0.000 - 0.000 x10(3)/ L [facility] Blood 10/01/2022 3:11 PM EST 10/01/2022 3:15 PM EST Narrative Resulting Agency Comment Spec In Lab Baldomero COSME HEMATOLOGY ORDERABL ES [facility] [place] [address] * (ABNORMAL) Comprehensive metabolic panel (non-fasting) (10/01/2022 3:11 PM EST) Glucose 103 65 - 199 mg/dL [facility] Comment:Diabetes: >=200 mg/d L plus symptoms Blood Urea Nitrogen 18 10 - 20 mg/dL [facility] Creatinine 1.50 0.80 - 1.50 mg/dL [facility] Sodium 140 135 - 145 mmol/L [facility] Potassium 4.7 3.5 - 5.0 mmol/L [facility] Comment: Please note: ??Patients with WBC >100,000 may have falsely elevated Potassium levels. ??For accurate Potassium quantification in these patients send serum separator tube (gold top) for subsequent determinations. ??Contact the Clinical Chemistry Laboratory if there are any questions. Chloride 103 98 - 107 mmol/L [facility] Carbon Dioxide 26 22 - 31 mmol/L [facility] Anion Gap 11 5 - 15 mmol/L [facility] Calcium 9.8 8.5 - 10.5 mg/dL [facility] Protein, Total 7.1 6.1 - 8.0 g/dL [facility] Albumin 4.4 3.2 - 5.2 g/dL [facility] Aspartate Aminotransferase 29 0 - 39 unit/L [facility] Alanine Aminotransferase 29 0 - 55 unit/L [facility] Alkaline Phosphatase 55 40 - 130 unit/L [facility] Bilirubin, Total 0.4 0.2 - 1.3 mg/dL [facility] Est Glomerular Filtration Rate 53(L) >=60 mL/min/1. 73 m?? [facility] Comment: This patient's estimated GFR was [...] and symptoms in addition to eGFR. 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
--- OUTSIDE RECORDS SUMMARY | 2024-08-29 14:12 | XMS_ITS | Encounter Summary ---
Author Organization [facility] [place] [address] Care Team Providers Care Circular Knife Cutter Machine Name Role Phone Alek Esparza MD Primary Care Provider [phone] Reason for Visit * Reason Comments Medication Refill Encounter Details Date Type Department Care Team ([facility] st Contact Info) Description 03/17/2022 Refill [place] [phone] Baldomero Neal PA [address] [place] [address] Social History Tobacco Use Types Packs/Day Years [...] on filedocumented in this encounter Care Teams Circular Knife Cutter Machine Relationship Specialty Start Date End Date Alek Esparza MD [address] [place] [phone] PCP - General 09/03/10 04/05/23 documented as of this encounter
--- OUTSIDE RECORDS SUMMARY | 2024-08-29 14:12 | XMS_ITS | Encounter Summary ---
Author Organization [facility] Address [facility] [place] [address] Care Team Providers Care Motor Vehicle Technician Name Role Phone Alek Esparza MD Primary Care Provider [phone] Reason for Visit * Reason Comments Medication Management Encounter Details Date Type Department Care Team ([facility] Contact Info) Description 03/06/2023 Specialty [place] [phone] Surinder Aguiar [facility] Social History Tobacco Use Types Packs/Day [...] Progress Notes * Surinder Aguiar RPH - 03/06/2023 12:31 PM EDT Clinical Management Plan: Refill Specialty Pharmacy Consultation; Surinder Aguiar [facility] Comprehensive Medication Management (CMM) Enoc Esteban Mr. [...] 12-24-2020, 08:31 Medication Reconciliation Discrepancies (compared to [facility] med list) No Specialty Pharmacy Refill Questionnaire 03/06/2023 Refill Questionnaire What is the name of the specialty medication you are refilling? Humira Are you taking any new medications? No Any new medical condition? No Any new allergies? No Any new side effects that are bothersome? No What date will you need this fill by? 03/19/2023 Adherence: Any missed doses? No Patient understands no changes to current drug regimen were made. Surinder Aguiar RPH 03/06/23 12:33 PM documented in this encounter Plan of Treatment Not on file documented as of this encounter Visit Diagnoses Not on filedocumented in this encounter Care Teams Motor Vehicle Technician Relationship Specialty Start Date End Date Alek Esparza MD [address] [place] [phone] PCP - General 09/03/10 04/05/23 documented as of this encounter
--- OUTSIDE RECORDS SUMMARY | 2024-08-29 14:12 | XMS_ITS | Encounter Summary ---
Author Organization [facility] Address [facility] [address] Care Team Providers Care Industrial Technology Teacher Name Role Phone Alek Esparza MD Primary Care Provider [phone] Encounter Details Date Type Department Care Team ([facility] st Contact Info) Description 12/18/2022 [place] [phone] Estefanía Thapa Social History Tobacco Use Types Packs/Day Years [...] encounter Miscellaneous Notes * Telephone Encounter - Estefanía Thapa - 12/18/2022 9:20 AM EST Called pt to try and barb a bumped follow up, left message, sending mydh message documented in this encounter Plan of Treatment Not on file documented as of this encounter Visit Diagnoses Not on filedocumented in this encounter Care Teams Industrial Technology Teacher Relationship Specialty Start Date End Date Alek Esparza MD [address] [place] [phone] PCP - General 09/03/10 04/05/23 documented as of this encounter
--- OUTSIDE RECORDS SUMMARY | 2024-08-29 14:12 | XMS_ITS | Encounter Summary ---
Author Organization [facility] [place] [address] Care Team Providers Care Record Changer Assembler Name Role Phone Alek Esparza MD Primary Care Provider [phone] Encounter Details Date Type Department Care Team ([facility] st Contact Info) Description 09/13/2021 Telephone [place] [phone] [facility] Social History Tobacco Use Types Packs/Day Years [...] encounter Miscellaneous Notes * Telephone Encounter - [facility] - 09/13/2021 2:16 PM EST VM left with pt to cb and confirm where to send orders placed by Issa Neal documented in this encounter Plan of Treatment Not on file documented as of this encounter Visit Diagnoses Not on filedocumented in this encounter Care Teams Record Changer Assembler Relationship Specialty Start Date End Date Alek Esparza MD [address] [place] [phone] PCP - General 09/03/10 04/05/23 documented as of this encounter
--- OUTSIDE RECORDS SUMMARY | 2024-08-29 14:12 | XMS_ITS | Encounter Summary ---
Author Organization [facility] Address [facility] [place] [address] Care Team Providers Care Dentofacial Orthopedics Dentist Name Role Phone Astrid Grier MD Primary Care Provider Encounter Details Date Type Department Care Team (Late st Contact Info) Description 11/04/2023 Orders [place] [phone] Joao Enriquez PA [facility] [place] [place] [address] Screening for cardiovascular condition; ASCVD (arteriosclerotic cardiovascular disease) Social History Tobacco Use Types Packs/Day Years [...] as of this encounter Visit Diagnoses Diagnosis Screening for cardiovascular condition Screening for other and unspecified cardiovascular conditions ASCVD (arteriosclerotic cardiovascular disease) Unspecified cardiovascular disease documented in this encounter Care Teams Dentofacial Orthopedics Dentist Relationship Specialty Start Date End Date Astrid Grier MD [address] [place] [address] PCP - General Family Medicine 04/06/23 documented as of this encounter
--- OUTSIDE RECORDS SUMMARY | 2024-08-29 14:12 | XMS_ITS | Encounter Summary ---
Author Organization [facility] [place] [address] Care Team Providers Care Farm Implement Mechanic Name Role Phone Astrid Grier MD Primary Care Provider Reason for Visit * Reason Comments Medication Refill Encounter Details Date Type Department Care Team (Late st Contact Info) Description 05/05/2023 Refill [place] [phone] Baldomero Neal PA [address] [place] [address] Social History Tobacco Use Types Packs/Day Years [...] on filedocumented in this encounter Care Teams Farm Implement Mechanic Relationship Specialty Start Date End Date Astrid Grier MD [address] [place] [address] PCP - General Family Medicine 04/06/23 documented as of this encounter
--- OUTSIDE RECORDS SUMMARY | 2024-08-29 14:12 | XMS_ITS | Encounter Summary ---
Author Organization [facility] [place] [address] Care Team Providers Care Printed Products Assembler Name Role Phone Alek Esparza MD Primary Care Provider [phone] Reason for Visit * Reason Comments Follow-up Encounter Details Date Type Department Care Team (Late st Contact Info) Description 01/21/2023 11:00 AM EDT Office [place] [phone] Baldomero Neal PA [address] [place] [address] Inflammatory arthritis (Primary Dx); Tophaceous gout; Arthralgia, unspecified joint; Lumbar radiculopathy; Positive MICHI (antinuclear antibody); Chronic atrial fibrillation; Medication monitoring encounter Social History Tobacco Use [...] Sign Reading Time Taken Comments Blood Pressure 126/87 01/21/2023 11:00 AM EDT Pulse 64 01/21/2023 11:00 AM EDT Temperature 36.6 ??C (97.9 ??F) 01/21/2023 11:00 AM E DT Respiratory Rate 17 01/21/2023 11:00 AM EDT Oxygen Saturation 100% 01/21/2023 11:00 AM EDT Inhaled Oxygen Concentration - - Weight 113.4 kg (250 lb) 01/21/2023 11:00 AM EDT Height 177.8 cm (5' 10) 01/21/2023 11:00 AM EDT Body Mass Index 35.87 01/21/2023 11:00 AM EDT documented in this encounter Patient Instructions * Patient Instructions* Baldomero Neal PA - 01/21/2023 11:00 AM EDT Follow up with Ortho if desired for hands Follow up with balance PT if desired Continue Humira for seronegative rheumatoid arthritis Continue Uloric for hyperuricemia gout clinically quiet Continue cymbalta as previous Update laboratory studies today documented in this encounter Progress Notes * Baldomero Neal PA - 01/21/2023 11:00 AM EDTSummary: SNRA Rheumatology Outpatient Note Chart review conducted [...] who presents today for evaluation of SNRA. 22:Impression/Recommendations : Enoc Esteban is a 62 y.o. [...] months sooner if indicated Patient in agreement. Interval History: Patient presents today for follow-up. He continues on Humira for seronegative rheumatoid arthritis he finds it helpful there is been no red warm swollen joints fevers infectious-like symptoms he denies any gout flares for gout he continues on Uloric without complication. For his secondary arthralgias he takes Cymbalta which he again reports is helpful. He does have some ongoing arthralgias in hishands related to his contractures he is done injections in the past he finds a number of times he has to go for these difficult. He does feel over time his balance is a little bit off he is not sure he needs intervention for this. He does mention in passing in the distant past he had a CT of his head at another institution he is not sure whether or not follow-up is required. Review of Systems Constitutional: Negative for fever, weight loss and malaise/fatigue. Respiratory: Negative for chest discomfort, hemoptysis, orthopnea and pleuritic pain. Gastrointestinal: Negative for nausea, steatorrhea, diarrhea and trouble swallowing. HENT: Negative. Psychiatric/Behavioral: Negative for social aversion. Hematologic/Lymphatic: Negative. Allergic/Immunologic: Negative for recurrent infections. Musculoskeletal: Positive for joint pain (hands). Endocrine: Negative for polydipsia, polyphagia, polyuria and Cushingoid appearance. Cardiovascular: Negative for syncope. Neurological: Negative for vertigo. Skin: Negative for urticaria, blister and photosensitivity. Allergies Allergies Allergen Reactions ??? Allopurinol Rash ??? Ketoconazole Rash patient states the rash was from allopurinol not this, and he has used it without issue.%0ALast modified by Alysia Alcaraz 12-24-2020, 08:31 Medications Current Outpatient Medications on File Prior to Visit Medication Sig Dispense Refill ??? DULoxetine DR (Cymbalta) 30 mg Capsule, Delayed Release(E.C.) Take 2 capsules by mouth nightly.180 capsule 1 ??? triamcinolone (KENALOG) 0.025 % Cream APPLY A THIN FILM TOPICALLY TWO TIMES A DAY NEEDED FORITCHING/ RASH/ REDNESS ??? naloxone (Narcan) 4 mg/actuation [place], Non-Aerosol by Nasal route. ??? Adalimumab (Humira Pen) 40 mg/0.8 mL Pen Injector Kit Inject 0.8 mLs subcutaneously every 14 days. 4 kit 6 ??? hydrOXYzine (ATARAX) 50 mg Tablet TAKE ONE TABLET BY MOUTH EVERY DAY AT DINNER ??? traZODone (Desyrel) 50 mg Tablet TAKE ONE TABLET BY MOUTH AT BEDTIME ??? HYDROcodone-acetaminophen ([place]) 10-325 mg Tablet TAKE 2 TABLETS BY [...] ischemic attack G45.9 ??? Chronic pain G89.29 ??? Inflammatory arthritis M19.90 SurgHX Past Surgical History: Procedure Laterality Date ??? PRO ARTHROPLASTY ACETABULAR/PROX FEM PROSTC AGRFT/ALGRFT Left 04/12/2020 TOTAL HIP ARTHROPLASTY, ANTERIOR APPROACH (WRVU 20.72) performed by Isidoro Lay MD at [facility] OR ??? PRO CLOSED TREAT TOE FX 02/08/2013 CLOSED TREATMENT FX PHALANX OR PHALANGES performed by Rohan Duarte MD at [facility] ??? PRO LAMINOTOMY, LUMBAR DISK, 1 INTRSP N/A 10/25/2019 LAMINOTOMY, DECOMPRESSION, FORAMINOTOMY, LUMBAR (WRVU 13.18) performed by Denzel Madison MD at [facility] OR ??? PRO MICROSURG TECHNIQUES, REQ OPER MICROSCOPE N/A 10/25/2019 MICROSCOPE USE (WRVU 3.46) performed by Denzel Madison MD at [facility] OR ??? PRO REMOVAL OF ELBOW BURSA Right 10/16/2014 EXCISION OF OLECRANON BURSA performed by Anupama Howard MD at [facility] Physical Examination: BP 126/87 Pulse 64 Temp 36.6 ??C (97.9 ??F) (Temporal) Resp 17 Ht 177.8 cm (5' 10) Wt 113.4 kg (250 lb) SpO2 100% BMI 35.87 kg/m?? Musculoskeletal: Multiple contractures of the flexor tendons no other joint effusions or synovitis noted. Physical Exam HENT: Head: Normocephalic and atraumatic. Right Ear: External ear normal. Left Ear: External ear normal. Nose: Nose normal. Eyes: General: No scleral icterus. Right eye: No discharge. Left eye: No discharge. Conjunctiva/sclera: Conjunctivae normal. Cardiovascular: Rate and Rhythm: Rhythm irregular. Heart sounds: No friction rub. No gallop. Pulmonary: Breath sounds: No wheezing or rhonchi. Abdominal: Palpations: Abdomen is soft. Musculoskeletal: General: Deformity present. No swelling, tenderness or signs of injury. Right lower leg: No edema. Left lower leg: No edema. Skin: General: Skin is dry. Neurological: Mental Status: He is alert and oriented to person, place, and time. Psychiatric: Mood and Affect: Mood normal. Behavior: Behavior normal. Thought Content: Thought content normal. Judgment: Judgment normal. Laboratory Data: Component Latest Ref Rn 10/01/2022 Glucose Lvl 65 - 199 mg/dL 103 BUN 10 - 20 mg/dL 18 Creatinine 0.80 - 1.50 mg/dL 1.50 Sodium 135 - 145 mmol/L 140 Potassium 3.5 - 5.0 mmol/L 4.7 Chloride 98 - 107 mmol/L 103 CO2 22 - 31 mmol/L 26 Anion Gap 5 - 15 mmol/L 11 Calcium 8.5 - 10.5 mg/dL 9.8 Total Protein 6.1 - 8.0 g/dL 7.1 Albumin 3.2 - 5.2 g/dL 4.4 AST 0 - 39 unit/L 29 ALT 0 - 55 unit/L 29 Alk Phos 40 - 130 unit/L 55 Total Bilirubin 0.2 - 1.3 mg/dL 0.4 Estimated GFR >=60 mL/min/1.73 m?? 53 (L) WBC 4.0 - 9.5 x10(3)/mcL 7.4 RBC [...] Gran Abs 0.00 - 0.04 x10(3)/mcL 0.01 (L) Low (H) High Impression/Recommendations : Enoc Esteban is a 63 y.o. male who presents today with seronegative rheumatoid arthritis, gout/hyperuricemia with no inflammatory changes noted on exam patient finding Humira helpful. He has not experienced any side effects. After review of his options he elected to: Follow up with Ortho if desired for hands Follow up with balance PT if desired Continue Humira for seronegative rheumatoid arthritis Continue Uloric for hyperuricemia gout clinically quiet Continue cymbalta as previous Update laboratory studies today Notes, Chart Review, Time with Patient, Orders, day of visit ,40 min or greater. documented in this encounter Plan of Treatment Not on file documented as of this encounter Procedures Procedure Name Priority Date/Time Associated Diagnosis Comments SCAN, PERIPHERAL BLOOD Routine 11:52 AM EDT HEMOGRAM Routine 01/21/2023 11:52 AM EDT Medication monitoring encounter DIFFERENTIAL, AUTOMATED Routine 01/21/2023 11:52 AM EDT Medication monitoring encounter HC CBC,PLT & AUTO DIFF Routine 11:52 AM EDT Medication monitoring encounter HC VENIPUNCTURE Routine 01/21/2023 11:52 AM EDT Medication monitoring encounter COMPREHENSIVE METABOLIC PANEL Routine 01/21/2023 11:52 AM EDT Medication monitoring encounter documented in this encounter Results * Scan, Peripheral Blood (01/21/2023 11:52 AM EDT) Plat estimate Normal [facility] RBC Morphology Abnormal [facility] Macrocyte 1-5 /HPF [facility] Blood 01/21/2023 11:5 2 AM EDT 01/21/2023 12:13 PM EDT Narrative Resulting Agency Comment Spec In Lab Baldomero COSME HEMATOLOGY ORDERABL ES Performing Organization Address City/State/[facility] Co de Phone Number [facility] [place] [address] * Differential, Automated (01/21/2023 11:52 AM EDT) Neutrophil % 44.5 % [facility] Neutrophil Absolute 2.54 1.70 - 6.10 x10(3)/[facility] Lymph % 41.1 % [facility] Lymphocytes Abs 2.4 0.9 - 3.2 x10(3)/[facility] Monocyte % 10.7 % [facility] Monocyte Abs 0.6 0.3 - 0.9 x10(3)/[facility] Eos % 2.4 % [facility] Eosinophils Abs 0.1 0.0 - 0.4 x10(3)/[facility] Basophil % 1.0 % [facility] Baso Absolute 0.1 0.0 - 0.1 x10(3)/[facility] Immature Gran % 0.30 % [facility] Comment: Immature granulocytes(IG's)percentage and absolute count will include metamyelocytes, myelocytes, and promyelocytes. Blood smears from CBCs yielding IG's will be scanned manually for concordance. If this scan disagrees with the automated IG or if promyelocytes are noted, a manual differential will be performed. Immature Gran Absolute 0.02 0.00 - 0.04 x10(3)/mcL [facility] Blood 01/21/2023 11:5 2 AM EDT 01/21/2023 12:13 PM EDT Narrative Resulting Agency Comment Spec In Lab Baldomero COSME HEMATOLOGY ORDERABL ES [facility] [place] [address] * (ABNORMAL) Hemogram (01/21/2023 11:52 AM EDT) White Blood Cell 5.7 4.0 - 9.5 x10(3)/mc L [facility] Red Blood Cell 4.10(L) 4.58 - 5.54 x10(6)/mc L [facility] Hemoglobin 14.8 13.7 - 16.5 g/dL [facility] Hematocrit 43.3 40.5 - 48.5 % [facility] Mean Cell Volume 105.6(H) 82.9 - 93.1 fL [facility] Mean Cell Hemoglobin 36.1(H) 27.5 - 32.1 pg [facility] Mean Cell Hemoglobin Concentration 34.2 32.0 - 35.7 g/dL [facility] Platelet 217 145 - 357 x10(3)/mc L [facility] RDW Standard Deviation 50.0(H) 36.0 - 45.0 fL [facility] RDW coefficient of variation 12.7 11.4 - 13.8 % [facility] Mean Platelet Volume 10.4 7.6 - 12.9 fL [facility] NRBC% auto 0.0 % [facility] NRBC Absolute 0.000 0.000 - 0.000 x10(3)/mc L [facility] Blood 01/21/2023 11:5 2 AM EDT 01/21/2023 12:13 PM EDT Narrative Resulting Agency Comment Spec In Lab Baldomero COSME HEMATOLOGY ORDERABL ES Performing Organization Address City/[facility]/ZIP Co de Phone Number [facility] [place] [address] * Uric acid (01/21/2023 11:52 AM EDT) Uric Acid 5.0 3.5 - 8.5 mg/dL [facility] Blood 01/21/2023 11:5 2 AM EDT 01/21/2023 12:13 PM EDT Narrative Resulting Agency Comment Spec In Lab Teofilo Cotton MD CHEMISTRY ORDERABLES Performing Organization Address [facility] Co de Phone Number [facility] [place] [address] * (ABNORMAL) Comprehensive metabolic panel (non-fasting) (01/21/2023 11:52 AM EDT) Glucose 135 65 - 199 mg/dL [facility] Comment:Diabetes: >=200 mg/d L plus symptoms Blood Urea Nitrogen 25(H) 10 - 20 mg/dL [facility] Creatinine 1.42 0.80 - 1.50 mg/dL [facility] Sodium 138 135 - 145 mmol/L [facility] Potassium 4.9 3.5 - 5.0 mmol/L [facility] Comment: Please note: ??Patients with WBC >100,000 may have falsely elevated Potassium levels. ??For accurate Potassium quantification in these patients send serum separator tube (gold top) for subsequent determinations. ??Contact the Clinical Chemistry Laboratory if there are any questions. Chloride 100 98 - 107 mmol/L [facility] Carbon Dioxide 27 22 - 31 mmol/L [facility] Anion Gap 11 5 - 15 mmol/L [facility] Calcium 9.9 8.5 - 10.5 mg/dL [facility] Protein, Total 7.2 6.1 - 8.0 g/dL [facility] Albumin 4.3 3.2 - 5.2 g/dL [facility] Aspartate Aminotransferase 41(H) 0 - 39 unit/L [facility] Alanine Aminotransferase 50 0 - 55 unit/L [facility] Alkaline Phosphatase 48 40 - 130 unit/L [facility] Bilirubin, Total 0.6 0.2 - 1.3 mg/dL [facility] Est Glomerular Filtration Rate 56(L) >=60 mL/min/1. 73 m?? [facility] Comment: This patient's estimated GFR [...] and symptoms in addition to eGFR. 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
--- OUTSIDE RECORDS SUMMARY | 2024-08-29 14:12 | XMS_ITS | Encounter Summary ---
Author Organization [facility] [place] [address] Care Team Providers Care Civil Engineering Manager Name Role Phone Alek Esparza MD Primary Care Provider [phone] Reason for Visit * Reason Comments Specialty Pharmacy Review Adalimumab (Hu maria m) Pen 40mg/0.8mL Encounter Details Date Type Department Care Team ([facility] Contact Info) Description 08/05/2022 Specialty [place] [address] Shy Ramirez, [facility] Social History Tobacco Use Types [...] as of this encounter Progress Notes * Shy Ramirez - 08/05/2022 9:56 AM EDT The - Specialty Pharmacy has completed a benefits investigation for Enoc Esteban to review theireligibility to fill at [facility]. Per patient's medication list they are prescribed Adalimumab (Humira) and the medication is filled at the [facility]. documented in this encounter Plan of Treatment Not on file documented as of this encounter Visit Diagnoses Not on filedocumented in this encounter Care Teams Civil Engineering Manager Relationship Specialty Start Date End Date Alek Esparza MD [address] [place] [phone] PCP - General 09/03/10 04/05/23 documented as of this encounter
--- OUTSIDE RECORDS SUMMARY | 2024-08-29 14:12 | XMS_ITS | Encounter Summary ---
Author Organization Formerly [facility] Address [facility] [place] [address] Care Team Providers Care Rotational Moulding Operator Name Role Phone Alek Esparza MD Primary Care Provider [phone] Encounter Details Date Type Department Care Team (Latest Contact Info) Description 12/16/2021 3:00 PM EST TH Visit (TeleHealth) [place] [phone] Baldomero Neal PA [address] [place] [address] Medication monitoring encounter; Tophaceous gout; Arthralgia, unspecified joint Social History Tobacco Use Types Packs/Day Years Used Date Smoking Tobacco: Never Smokeless Tobacco: Never Alcohol Use Standard Drinks/Week Comments Yes 16 (1 standard drink = 0.6 oz pu re alcohol) 2-3 drinks daily Sex and Gender Information Value Date Recorded Sex Assigned at Not on file Gender Identity Not on file Sexual Orientation Not on file documented as of this encounter Patient Instructions * Patient Instructions* Baldomero Neal PA - 12/16/2021 3:25 PM EST No changes medications for now Follow up 2 months Consider trial HcQ documented in this encounter Progress Notes * Baldomero Neal PA - 12/16/2021 3:00 PM EST Rheumatology Outpatient Note Chart review conducted prior [...] the patient's medical or mental health care. Today's visit was completed by telephone patient unable to utilize video visit due to technology limitations. History of Present Illness: Enoc Esteban is a 61 y.o. male who presents today for evaluation of OA and Gout. 11/04/21:Impression/Recommendations : Enoc Esteban is a 61 y.o. male who presents today with arthralgias with background of osteoarthritis and gout patient reporting gout is clinically controlled on Uloric 40 mg/day. His arthralgias remain steroid responsive. After review of his options patient elected to: ?? Continue Uloric as previous. Continue Cymbalta as previous as he does find it helpful. Discussed the possibility of empiric treatment for low-grade inflammatory arthritis given the dramatic response he has took prednisone. He elected for an empiric trial of sulfasalazine 500 mg/day we will update laboratory studies today and again in 4 weeks side effects reviewed expectations discussed. 4-week follow-up telehealth sooner if indicated Interval History: Patient is no longer taking sulfasalazine he did not find the medication helpful. There is been no fevers infectious-like symptoms red warm swollen joints he denies any gout attacks. He finds he has ongoing significant stiffness. He tells me he drinks alcohol on a daily basis. He does find Cymbalta helpful he thinks. He is planning on going to [place] for a couple weeks. Complains of stiffness inhis knees hips shoulders and hands this pain is relieved by hydrocodone. Reports morning stiffness of about an hour and a half. Review of Systems Constitutional: Negative for anorexia, diaphoresis and sleep disturbance. Respiratory: Negative for cough, shortness of breath, chest discomfort, hemoptysis and orthopnea. Gastrointestinal: Negative for vomiting, diarrhea and trouble swallowing. HENT: Negative. Hematologic/Lymphatic: Negative. Allergic/Immunologic: Negative for recurrent infections and immunocompromised state. Musculoskeletal: Positive for joint pain and stiffness. Negative for myalgias, joint swelling and fracture. Endocrine: Negative for polydipsia, polyphagia and polyuria. Cardiovascular: Negative for syncope. Neurological: Negative for vertigo. Skin: Negative for dry skin. Allergies Allergies Allergen Reactions ??? Allopurinol Rash Medications Current Outpatient Medications on File Prior to Visit Medication Sig Dispense Refill ??? DULoxetine DR (Cymbalta) 30 mg Capsule, Delayed Release(E.C.) Take 1 capsule by mouth 2 times daily. 60 capsule 3 ??? hydrOXYzine (ATARAX) 50 mg Tablet TAKE ONE TABLET BY MOUTH EVERY DAY AT DINNER ??? traZODone (Desyrel) 50 mg Tablet TAKE ONE TABLET BY MOUTH AT BEDTIME ??? HYDROcodone-acetaminophen ([place]) 10-325 mg Tablet TAKE 2 TABLETS BY [...] Tylenol as needed per package insert.) ??? omeprazole (PriLOSEC OTC) 20 mg Tablet, Delayed Release (E.C.) Take 1 tablet by mouth daily. ??? febuxostat (Uloric) 40 mg Tablet Take [...] tablet 5 ??? zolpidem (AMBIEN) 10 mg tablet Take 10 mg by mouth nightly as [...] lumbar region without myelopathy or radiculopathy M47.816 SurgHX Past Surgical History: Procedure Laterality Date ??? PRO CLOSED TREAT TOE FX 02/08/2013 CLOSED TREATMENT FX PHALANX OR PHALANGES performed by Rohan Duarte MD at [facility] ??? PRO LAMINOTOMY, LUMBAR DISK, 1 INTRSP N/A 10/25/2019 LAMINOTOMY, DECOMPRESSION, FORAMINOTOMY, LUMBAR (WRVU 13.18) performed by Denzel Madison MD at [facility] ??? PRO MICROSURG TECHNIQUES, REQ OPER MICROSCOPE N/A 10/25/2019 MICROSCOPE USE (WRVU 3.46) performed by Denzel Madison MD at [facility] OR ??? PRO REMOVAL OF ELBOW BURSA Right 10/16/2014 EXCISION OF OLECRANON BURSA performed by Anupama Howard MD at [facility] ??? PRO TOTAL HIP ARTHROPLASTY Left 04/12/2020 TOTAL HIP ARTHROPLASTY, ANTERIOR APPROACH (WRVU 20.72) performed by Isidoro Lay MD at [facility] Physical Examination: There were no vitals taken for this visit. Physical Exam Neurological: Mental Status: He is alert. Psychiatric: Mood and Affect: Mood normal. Behavior: Behavior normal. Thought Content: Thought content normal. Judgment: Judgment normal. Impression/Recommendations : Enoc Esteban is a 61 y.o. male who presents today with gout patient continuing on Uloric without recurrent flares. Secondarily has osteoarthritis with question of inflammatory component. Patient hasfailed a trial of sulfasalazine discussed the possibility of a trial of hydroxychloroquine expectations discussed he will consider it we will call when he returns from [place] should he wish to initiate a trial of hydroxychloroquine. He cannot take NSAIDs because of his renal insufficiency his kidney function tests he reports are followed by his primary care provider who he sees about every 4 months per the patient. Further changes pending his clinical course patient in agreement. 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
--- OUTSIDE RECORDS SUMMARY | 2024-08-29 14:12 | XMS_ITS | Encounter Summary ---
Author Organization Formerly [facility] [place] [address] Care Team Providers Care Attendant Arcade Name Role Phone Astrid Grier MD Primary Care Provider Reason for Visit * Auth/Cert (Routine) Specialty Diagnoses / Procedures Referred By Contac t Referred To Contact Diagnoses Encounter for screening for cardiovascular disorders Atherosclerotic heart disease of [place] coronary artery without angina pectoris Screening for cardiovascular condition [Z13.6] ASCVD (arteriosclerotic cardiovascular disease) [I25.10] Procedures PRG CATH PLMT LEFT HEART CATH & ARTS W/INJ & ANGIO IMG S&I CARDIAC CATHETERIZATION CORONARY ANGIOGRAPHY; W LHC,POSSIBLE PCI (WRVU 5.6) Key Pate MD [facility] [place] [address] [facility] Referral ID Status Reason Start Date Expiration Date Visits Re quested Visits Authorized [id number] 1 1 Encounter Details Date Type Department Care Team (Latest Contact Info) Description 11/20/2023 8:31 AM EST - 11/20/2023 4:58 PM EST Hospital [place] [address] Key Pate MD [facility] [place] [address] Screening for cardiovascular condition; ASCVD (arteriosclerotic cardiovascular disease) Discharge Disposition: Home Social History Tobacco Use [...] Sign Reading Time Taken Comments Blood Pressure 137/96 11/20/2023 4:16 PM EST Pulse 66 11/20/2023 1:45 PM EST Temperature 36.7 ??C (98.1 ??F) 11/20/2023 4:16 PM ES T Respiratory Rate 16 11/20/2023 1:55 PM EST Oxygen Saturation 97% 11/20/2023 4:40 PM EST Inhaled Oxygen Concentration - - Weight 119.3 kg (263 lb 1.6 oz) 024 10:36 AM EST Height 179.1 cm (5' 10.5) 11/20/2023 1 0:36 AM EST Body Mass Index 37.22 11/20/2023 10:36 AM EST documented in this encounter Discharge Instructions * Patient Instructions* Salinas Mcgrath MD - 11/20/2023 12:45 PM EST Radial Access for Heart Cath Activity Try to avoid bending your wrist for the first 12-24 hours after the procedure to allow the artery to fully heal. Do not participate in active sports for 48 hours. Do not lift anything greater than 5 lbs. Catheter Insertion Area Care Take the dressing off of the catheter insertion site the morning following the procedure. Leave thesite open to air. If the site is oozing you may cover it with a band aid. You may take a shower if you wish. Look for signs of infection over the next several days. It is uncommon to have any visible blood at the site, any obvious bleeding is abnormal. A bruise around the wrist or small lump under the skin is normal: they generally disappear in 3-5 days. Expect some mild tenderness over the area where the catheter was inserted. You will notice this after the local anesthetic (numbing medicine) wears off. This should improve during the 24-48 hours after the procedure. You may use acetaminophen (tylenol) if needed. Contact your doctor if the discomfort worsens. Problems to Watch for If there is bright red blood flowing from the catheter insertion area: *stop what you are doing *hold pressure steadily on the area for 15 minutes *call for help *if the bleeding does not stop in 15 minutes call 911 for an ambulance. If there is swelling with black and blue color at the catheter insertion site, there may be bleeding inside. Contact the doctor if there is any increase in size. Look at the insertion site for the first few days at home. Signs of infection are: *redness *swelling *yellow, white, green or brown foul smelling drainage. *increased soreness If you think there is an infection, take your temperature. Then call your doctor. The limb on the side where you had your catheterization should look and feel normal in color, sensation, and temperature. If your hand or fingers become cool, pale, blue or change color contact your doctor. If you are having numbness or tingling in your fingers or hand contact your doctor. Follow-up: No future appointments. Your Inpatient Doctor: Key Vaughan MD Your Primary Care Provider: Astrid Sandoval MD [phone] For questions regarding this document or issues relating to this hospitalization on the Medical Service, please contact your inpatient physician through the [facility] Change Advisor . Issues afterhours and on weekends will be handled by the Hospitalist staff on-call. documented in this encounter Medications at Time of Discharge Medication Sig Dispensed Refills Start Date End Date triamcinolone (KENALOG) 0.025 % Cream APPLY A THIN FILM TOPICALLY TWO TIMES A DAY NEEDED FOR ITCHING/ RASH/ REDNESS 08/22/2022 naloxone (Narcan) 4 mg/actuation Hawks, Non-Aerosol by Nasal route. 07/22/2022 traZODone (Desyrel) 50 mg Tablet TAKE ONE TABLET BY MOUTH AT BEDTIME 10/13/2020 HYDROcodone-acetami nophen ([place]) 10-325 mg Tablet TAKE 2 TABLETS BY MOUTH 3 TIMES DAILY NEEDED FOR 28 DAYS 04/20/2020 febuxostat (Uloric) 40 mg Tablet Take 1 tablet by mouth daily. 90 tablet 3 11/07/2019 ipratropium-albuter ol (COMBIVENT RESPIMAT) 20-100 mcg/actuation Mist Inhale 1 [...] 10 mg by mouth nightly as needed. atorvastatin (Lipitor) 20 mg tablet Take 40 mg by mouth. 06/16/2023 024 Adalimumab (Humira Pen) 40 mg/0.8 mL Pen Injector KitIndications:Infl ammatory arthritis Inject 0.8 mLs subcutaneously every 14 days. 4 kit 6 08/10/2023 04/19/[address] (Cymbalta) [address] capsule Take 2 capsules by mouth nightly. 180 capsule 1 05/06/2023 03/17/2024 hydrOXYzine (ATARAX) 50 mg Tablet TAKE ONE TABLET BY MOUTH EVERY DAY AT DINNER 10/13/2020 04/19/2024 acetaminophen (Tylenol) 500 mg Tablet Take 2 tablets by mouth every 8 hours. Take as directed around the clock for ten days after your surgery. After that you can take Tylenol as needed per package insert. 04/13/2020 04/19/2024 ELIQUIS 5 mg Tablet Resume 10 days after surgery. 6 11/04/2019 04/21/2024 documented as of this encounter Progress Notes * Omaira Hwang RN - 11/20/2023 4:43 PM EST 1640- Report taken from Soni SWANSON. Right wrist elevated on pillows. Per previous RN, hematoma has receded and not increased. 1645- Patients fluids are completed and patient is up to the bathroom. Patient knows to not use theright hand/arm for anything for at least 24 hours. 1650- Patients wrist unchanged after ambulation, getting dressed. Patient given arm sling to remindhim to not use right arm. Knows to call if any changes in wrist site. * Soni Ho RN - 11/20/2023 3:45 PM EST lab associate staff finished holding pressure on right wrist and placed new tegraderm and gauze. * Soni Ho RN - 11/20/2023 3:28 PM EST Joao Navarroin here to hold pressure on hematoma right wrist documented in this encounter H&P Notes * MollyAldo pinto - 11/20/2023 7:28 AM EST Images from the original note were not included. Enoc Esteban is a 63 y.o. male referred for cardiac catheterization for evaluation of CAD prior to starting flec for AF There have not been any changes in health status since last seen in clinic. No fevers, no chills, no bleeding. Other Cardiac History: - TYRON - copd/asthma - TIA - AF SOCIAL Hx: Outpatient Medications Marked as Taking for the 11/20/23 encounter (Hospital Encounter) Medication Sig Dispense Refill DULoxetine DR (Cymbalta) [address] capsule Take 2 capsules by mouth nightly. 180 capsule 1 HYDROcodone-acetaminophen ([place]) 10-325 mg Tablet TAKE 2 TABLETS BY MOUTH 3 TIMES DAILY NEEDED FOR 28 DAYS metoprolol succinate (TOPROL-XL) 50 mg Tablet Sustained Release 24 hr Take 1 tablet by mouth daily.90 tablet 3 losartan (COZAAR) 50 mg Tablet Take 1 tablet by mouth daily. 30 tablet 5 zolpidem (AMBIEN) 10 mg Tablet Take 10 mg by mouth nightly as needed. There were no vitals taken for this visit. Gen: Alert, comfortable appearing, in NAD CV: RRR, no M/R/G appreciated Pulm CTAB Abd soft, nt MSK/SKIN warm, dry Pulses: 2+ bilateral radial pulses, 2+ bilateral femoral pulses, no femoral bruit appreciated, 2+ bilateral DP pulses Labs reviewed and notable for: Lab Results Component Value Date WBC 5.7 01/21/2023 HGB 14.8 01/21/2023 HCT 43.3 01/21/2023 MCV 105.6 (H) 01/21/2023 PLATELET 217 01/21/2023 Lab Results Component Value Date CREATININE 1.42 01/21/2023 BUN 25 (H) 01/21/2023 NA 138 01/21/2023 K 4.9 01/21/2023 CL 100 01/21/2023 CO2 27 01/21/2023 Lab Results Component Value Date INR 1.1 03/23/2020 A/P 63 y.o. male here for cardiac catheterization. - consent signed ASA: 3: Patient with severe systemic disease Mallampati: III: only the base of the uvula can be seen I have personally discussed the procedure, including benefits and risks, with the patient who agrees to proceed. The indications for the catheterization, the expected benefits, and the possible riskswere reviewed in detail with the patient. The potential for , heart attack, stroke, kidney failure, bleeding, allergic reaction, vascular complications and infection were reviewed. The possibility of stenting and other percutaneous interventions, with associated risk, was reviewed. The potential need for emergent coronary artery bypass surgery was reviewed. Alternatives were discussed and the patient's questions were answered in full. Following this discussion, the patient consented to theprocedure and signed a form attesting to this, which is in the chart Aldo Molly Pager [phone] documented in this encounter Plan of Treatment Not on file documented as of this encounter Procedures Procedure Name Priority Date/Time Associated Diagnosis Comments CARDIAC CATHETERIZATION Routine 11/20/2023 2:12 PM EST Screening for cardiovascular condition ASCVD (arteriosclerotic cardiovascular disease) EKG 12-LEAD Routine 11/20/2023 11:02 AM EST Screening for cardiovascular condition ASCVD (arteriosclerotic cardiovascular disease) documented in this encounter Results * CARDIAC CATHETERIZATION (11/20/2023 2:12 PM EST) Anatomical Region Laterality Modality Other Narrative 11/20/2023 2:12 PM EST ?[facility] ? Cardiac Catheterization/Intervention Report ? Patient Name: Enoc Esteban. ? Procedure Date: 11/20/2023 ? A #: [id number] ? Primary Physician: Key Pate I ? Case #: [id number] ? File Name: [id number] ? Catheterization Order Number: [id number] ? [facility] ? Final Report [place], [place] ? Patient Name: ? Enoc Esteban ? ID#: ?[id number] ? : ?1960 ? Procedure Date: ? November 20, 2023 ? Case #: ? [id number] ? Room: ? 2 ? Case Physician: ? Key Pate M.D. ? Start: ?11:34 ?Fellow: ? Salinas Mcgrath M.D. ?Admission: ??11/20/2023 ? Referring Physician: ??Anat Cross, SHUTTLE HAND ? Procedures: ?* Coronary Angiography ?* Left Heart Catheterization ?* Coronary Instantaneous Wave-Free Ratio (iFR) ? History ?Enoc Esteban ??is a 63 year old man. He has hypertension. The patient's ?smoking status is Former. He has hypercholesterolemia managed with lipid ?therapy. The patient has diabetes managed by oral medication and insulin. ?He has a history of atrial fibrillation/atrial flutter. The patient has a ?history of transient ischemic attacks. He also has a history of chronic ?obstructive pulmonary disease and cancer. Prior to the initiation of this ?procedure, the patient was designated as ASA Class III. The HA clinical ?frailty scale is 4: Vulnerable. ? Diagnostic Tests: ?Medications Prior to Procedure: ? Angiotensin II Receptor Shant and Beta Shant. ? Indications for Diagnostic Cath: ?The priority of the diagnostic procedure was Urgent. The indication for ?the tutorial laboratory supervisor visit is other indication. Chest pain symptom assessment ?was: Asymptomatic. ? Technique: ?A 6 SLFr sheath was inserted in the right radial artery utilizing the ?Seldinger technique. The left coronary artery was injected utilizing a ?6Fr JL 3.5 catheter. A 6Fr MULTIPURPOSE B-1 catheter was used to inject ?the right coronary artery. Left ventricular pressure was performed ?utilizing a 6Fr JR 4 catheter. 9,000 units of heparin were administered. ?A total of 200cc of Omnipaque were opened, 133cc of Omnipaque were ?administered and 67cc of Omnipaque were wasted. Radiation: Fluoro time ?was 23.8 minutes, dose area product was 69.90 Gy/cm2 and air kerma was ?1,040 mGY. See the case log for additional details. ?The patient received the following medications prior to and during the ?procedure: ? Unfractionated Heparin. ? Hemodynamics: ?Left Heart Pressures ? Resting: ? Syst Diast ? EDP ?a ?v ? m ?Ao 143 ?? 87 ?109 ?LV 159 ? 25 ? Coronary Angiography: ?Dominance: Right ?Left Main ? The left main was normal, free of disease. ?Left Anterior Descending ? There was a 40% calcified single discrete stenosis of the proximal ? segment of the left anterior descending artery (LAD). ??The LAD was ? large. ? There was mild diffuse (<=25% stenosis) disease of the entire vessel ? segment of the first diagonal branch (Diagonal 1) of the LAD. ??The ? Diagonal 1 was large. ?Left Circumflex ? There was mild diffuse (<=25% stenosis) disease of the entire vessel ? segment of the left circumflex artery (LCX). ??The LCX was large. ?Right Coronary Artery ? There was mild diffuse (<=25% stenosis) disease of the entire vessel ? segment of the right coronary artery (RCA). ??The RCA was large. ? Intravascular Imaging/Physiology: ?Instantaneous wave-free ratio (iFR) was determined across the 40% ?stenosis in the proximal LAD using a 6 Fr EBU 3.5 guiding catheter and a ?OmniWire. ??Wire delivery was successful. ??The IFR across the 40% proximal ?LAD lesion was 0.93. ??This lesion was not hemodynamically significant. ? Vascular Access: ?Vascular Access Management: ? Mechanical Compression of the right radial artery access site was ? performed. ? Conclusions: ?* Nonobstructive coronary artery disease ?* Elevated left ventricular end diastolic pressure ? Complications/Events: ?The patient had no complications during these procedures. ? Post Procedure Fluid Recommendations: ?IV fluid at 238 mL/hr for 4 hours for a total of 952 mL. These ?recommendations are made at the time of the procedure. Patient and ?provider preferences or a changing clinical situation may require ?modification of this regimen. ?The attending physician was present for the entire procedure. ?Dr. Key Pate M.D. was present during the moderate sedation ?intraservice time as documented by the sedation nurse. ??Case time = 00:45. ?Dr. Key Pate M.D. performed the coronary angiography, left heart ?catheterization and IFR-coronary. ? Key I Herlinda, M.D. ? Electronically Signed by: Key Vaughan Herlinda, M.D. ? Report Finalized: 11/20/2023 ??14:07 ? Procedure Note Key Pate MD - 11/20/2023 [facility] Cardiac Catheterization/Intervention Report Patient Name: Enoc Esteban Procedure Date: 11/20/2023 A #: [id number] Primary Physician: Key Pate I Case #: [id number] File Name: [id number] Catheterization Order Number: [id number] [facility] FinalReport [place], [place] Patient Name: Enoc Esteban ID#:[id number] :1960 Procedure Date: November 20, 2023 Case #: [id number] Room: 2 Case Physician: Key Pate M.D. Start: 11:34 Fellow: Salinas Mcgrath M.D. Admission:11/20/2023 Referring Physician: Anat Cross APRN Procedures: * Coronary Angiography * Left Heart Catheterization * Coronary Instantaneous Wave-Free Ratio (iFR) History Enoc Esteban is a 63 year old man. He has hypertension. Thepatient's smoking status is Former. He has hypercholesterolemia managed withlipid therapy. The patient has diabetes managed by oral medication andinsulin. He has a history of atrial fibrillation/atrial flutter. The patienthas a history of transient ischemic attacks. He also has a history ofchronic obstructive pulmonary disease and cancer. Prior to the initiation ofthis procedure, the patient was designated as ASA Class III. The CSHAclinical frailty scale is 4: Vulnerable. Diagnostic Tests: Medications Prior to Procedure: Angiotensin II Receptor Shant and Beta Shant. Indications for Diagnostic Cath: The priority of the diagnostic procedure was Urgent. The indicationfor the tutorial laboratory supervisor visit is other indication. Chest pain symptomassessment was: Asymptomatic. Technique: A 6 SLFr sheath was inserted in the right radial artery utilizingthe Seldinger technique. The left coronary artery was injected utilizinga 6Fr JL 3.5 catheter. A 6Fr MULTIPURPOSE B-1 catheter was used toinject the right coronary artery. Left ventricular pressure was performed utilizing a 6Fr JR 4 catheter. 9,000 units of heparin wereadministered. A total of 200cc of Omnipaque were opened, 133cc of Omnipaque were administered and 67cc of Omnipaque were wasted. Radiation: Fluorotime was 23.8 minutes, dose area product was 69.90 Gy/cm2 and air kermawas 1,040 mGY. See the case log for additional details. The patient received the following medications prior to and duringthe procedure: Unfractionated Heparin. Hemodynamics: Left Heart Pressures Resting: Syst Diast EDP a v m Ao 143 87 109 LV 159 25 Coronary Angiography: Dominance: Right Left Main The left main was normal, free of disease. Left Anterior Descending There was a 40% calcified single discrete stenosis of theproximal segment of the left anterior descending artery (LAD). The LADwas large. There was mild diffuse (<=25% stenosis) disease of the entirevessel segment of the first diagonal branch (Diagonal 1) of the LAD.The Diagonal 1 was large. Left Circumflex There was mild diffuse (<=25% stenosis) disease of the entirevessel segment of the left circumflex artery (LCX). The LCX waslarge. Right Coronary Artery There was mild diffuse (<=25% stenosis) disease of the entirevessel segment of the right coronary artery (RCA). The RCA was large. Intravascular Imaging/Physiology: Instantaneous wave-free ratio (iFR) was determined across the 40% stenosis in the proximal LAD using a 6 Fr EBU 3.5 guiding catheterand a OmniWire. Wire delivery was successful. The IFR across the 40%proximal LAD lesion was 0.93. This lesion was not hemodynamicallysignificant. Vascular Access: Vascular Access Management: Mechanical Compression of the right radial artery access sitewas performed. Conclusions: * Nonobstructive coronary artery disease * Elevated left ventricular end diastolic pressure Complications/Events: The patient had no complications during these procedures. Post Procedure Fluid Recommendations: IV fluid at 238 mL/hr for 4 hours for a total of 952 mL. These recommendations are made at the time of the procedure. Patient and provider preferences or a changing clinical situation may require modification of this regimen. The attending physician was present for the entire procedure. Dr. Key Pate M.D. was present during the moderate sedation intraservice time as documented by the sedation nurse. Case time =00:45. Dr. Key Pate M.D. performed the coronary angiography, leftheart catheterization and IFR-coronary. Key Pate M.D. Electronically Signed by: Key Pate M.D. Report Finalized: 11/20/2023 14:07 Key Vaughan MD CARDIAC CATH ORDERA BLES * EKG 12 Lead (11/20/2023 11:02 AM EST) Ventricular rate 68 BPM MUSE SYSTEM QRS Duration 76 ms MUSE SYSTEM Q-T Interval 388 ms MUSE SYSTEM QTC Calculated (Bezet) 412 ms MUSE SYSTEM Calculated R [place] 43 degrees MUSE SYSTEM Calculated T [place] -3 degrees MUSE SYSTEM INTERPRETATION Atrial fibrillation Abnormal ECG When compared with ECG of 19-JUL-2019 11:31, No significant change was found Confirmed by MD Allen, Alek ([id number]) on 11/29/2023 2:48:54 PM MUSE SYSTEM 11/20/2023 11:0 2 AM EST 11/29/2023 2:48 PM EST Key Vaughan MD ECG ORDERABLES MUSE SYSTEM documented in this encounter Visit Diagnoses Diagnosis Screening for cardiovascular condition Screening for other and unspecified cardiovascular conditions ASCVD (arteriosclerotic cardiovascular disease) Unspecified cardiovascular disease Screening for cardiovascular condition Screening for other and unspecified cardiovascular conditions ASCVD (arteriosclerotic cardiovascular disease) Unspecified cardiovascular disease documented in this encounter Administered Medications Inactive Administered Medications - up to 3 most recent administrations Medication Order MAR Action Action Date Dose Rate Site acetaminophen (Tylenol) tablet 975 mg 975 mg, Oral, EVERY 6 HOURS PRN, 2 doses, Starting on Thu11/20/23 at 1546, Until Thu11/20/23 at 1858, Pain, Fever, Headaches, Maximum dose of acetaminophen is 4,000 mg from all sources in 24 hours. When ordered for pain, acetaminophen should be given even when other ordered pain medications are indicated., Routine Given 11/20/2023 3:50 PM EST 975 mg sodium chloride 0.9% infusion 100 mL/hr, Intravenous, CONTINUOUS, Starting on Thu11/20/23 at 1245, Until Thu11/20/23 at 1644, Recovery (Recovery-Hospital Unit) Continued Bag 11/20/2023 12:45 PM EST 100 mL/hr 100 mL/hr documented in this encounter Active and Recently Administered Medications Times are shown in EST. Continuous Medication Order 11/18/2023 11/19/2023 11/20/2023 sodium chloride 0.9% infusion 100 mL/hr, Intravenous, CONTINUOUS, Starting on Thu11/20/23 at 1245, Until Thu11/20/23 at 1644, Recovery (Recovery-Hospital Unit) 1245 (Continued Bag - Provider: Kelly Crain RN) PRN Medication Order 11/18/2023 11/19/2023 11/20/2023 acetaminophen (Tylenol) tablet 975 mg 975 mg, Oral, EVERY 6 HOURS PRN, 2 doses, Starting on Thu11/20/23 at 1546, Until Thu11/20/23 at 1858, Pain, Fever, Headaches, Maximum dose of acetaminophen is 4,000 mg from all sources in 24 hours. When ordered for pain, acetaminophen should be given even when other ordered pain medications are indicated., Routine 1550 (Given - Provid er: Soni Ho RN) fentaNYL (PF) (50 mcg/mL) injection 25 mcg 25 mcg, Intravenous, EVERY 30 MIN PRN, Starting on Thu11/20/23 at 1227, Until Thu11/20/23 at 1526, Pain, sheath removal, Maximum of 4 doses while in Cath Recovery Unit, Cath (Recovery-Hospital Unit), Routine fentaNYL (pf) (50 mcg/mL) multi-dose injection (CANCELED) PRN, Starting on Thu11/20/23 at 1125, Until Thu11/20/23 at 1223, Intra-Operative (Intra-Procedure), Routine 1125 (Given - Provid er: Delma Walker RN)1148 (Given - Provider: Delma Walker RN)1154 (Given - Provider: Katie Melendez RN)1204 (Given - Provider: Delma Walker RN)1211 (Given - Provider: Katie Melendez RN) heparin (porcine) (1,000 units/mL) injection (CANCELED) PRN, Starting on Thu11/20/23 at 1135, Until Thu11/20/23 at 1223, Intra-Operative (Intra-Procedure), Routine 1135 (Given - Provid er: Delma Walker RN)1215 (Given - Provider: Delma Walker RN) midazolam (pf) (Versed) (1 mg/mL) injection 1 mg 1 mg, Intravenous, EVERY 1 HOUR PRN, Starting on Thu11/20/23 at 1227, Until Thu11/20/23 at 1526, For sheath removal, Maximum of 2 doses while in Cath Recovery Unit, Cath (Recovery-Hospital Unit), Routine midazolam (pf) (Versed) (1 mg/mL) injection (CANCELED) PRN, Starting on Thu11/20/23 at 1125, Until Thu11/20/23 at 1223, Intra-Operative (Intra-Procedure), Routine 1125 (Given - Provid er: Delma Walker RN)1148 (Given - Provider: Delma Walker RN)1155 (Given - Provider: Delma Walker RN)1204 (Given - Provider: Delma Walker RN) nitroGLYcerin 100 mcg/mL intracoronary dilution (CANCELED) PRN, Starting on Thu11/20/23 at 1133, Until Thu11/20/23 at 1223, Intra-Operative (Intra-Procedure), Routine 1133 (Given - Provid er: Salinas Mcgrath MD)1148 (Given - Provider: Salinas Mcgrath MD)1155 (Given - Provider: Salinas Mcgrath MD) verapamiL (Isoptin) (2.5 mg/mL) injection (CANCELED) PRN, Starting on Thu11/20/23 at 1133, Until Thu11/20/23 at 1223, Administer over 2 Minutes, Intra-Operative (Intra-Procedure) 1133 (Given - Provid er: Salinas Mcgrath MD)1149 (Given - Provider: Salinas Mcgrath MD) documented in this encounter Care Teams Attendant Arcade Relationship Specialty Start Date End Date Astrid Grier MD [address] [place] [address] PCP - General Family Medicine 04/06/23 documented as of this encounter
--- OUTSIDE RECORDS SUMMARY | 2024-08-29 14:12 | XMS_ITS | Encounter Summary ---
Author Organization [facility] [place] [address] Care Team Providers Care Stone Belt Sander Name Role Phone Alek Esparza MD Primary Care Provider [phone] Encounter Details Date Type Department Care Team (Latest Contact Info) Description 02/17/2022 4:00 PM EDT TH Visit (TeleHealth) [place] [phone] Baldomero Neal PA [address] [address] Arthralgia, unspecified joint (Primary Dx); Tophaceous gout; Medication monitoring encounter; Positive MICHI (antinuclear antibody); History of cervical spinal surgery; Lumbar radiculopathy Social History Tobacco Use Types Packs/Day Years [...] * Patient Instructions* Baldomero Neal PA - 02/18/2022 6:03 PM EDT -Add HcQ 200 mg per day -Labs in 3-4 weeks -No other changes documented in this encounter Progress Notes * Baldomero Neal PA - 02/17/2022 4:00 PM EDTSummary: Gout/ OA Rheumatology Outpatient Note Chart review conducted prior [...] male who presents today for evaluation of Gout Impression/Recommendations : Enoc Esteban is a 61 y.o. male who presents today with gout patient continuing on Uloric without recurrent flares. Secondarily has osteoarthritis with question of inflammatory component. Patient hasfailed a trial of sulfasalazine discussed the possibility of a trial of hydroxychloroquine expectations discussed he will consider it we will call when he returns from [place] should he wish to initiate a trial of hydroxychloroquine. He cannot take NSAIDs because of his renal insufficiency his kidney function tests he reports are followed by his primary care provider who he sees about every 4 months per the patient. Further changes pending his clinical course patient in agreement. Interval History: Patient reports today for follow-up overall he is doing okay from a gout perspective. He continues to have secondary arthralgias without florid joint pain or swelling he does have fairly significant stiffness in the morning. After thinking about things since his last visit he is elected for trial of hydroxychloroquine. There is been no unusual weight loss, skin rashes, or night sweats. Review of Systems Constitutional: Negative for anorexia and diaphoresis. Respiratory: Negative for cough, shortness of breath and chest discomfort. Gastrointestinal: Negative for steatorrhea, diarrhea and trouble swallowing. HENT: Negative. Psychiatric/Behavioral: Negative for physiological symptoms of anxiety. Hematologic/Lymphatic: Negative. Allergic/Immunologic: Negative for immunocompromised state. Musculoskeletal: Positive for joint pain. Negative for stiffness, myalgias, joint swelling and fracture. Endocrine: Negative for polydipsia, polyphagia, polyuria and Cushingoid appearance. Cardiovascular: Negative for syncope. Skin: Negative for dry skin, urticaria and blister. Allergies Allergies Allergen Reactions ??? Allopurinol Rash [...] TABLET BY MOUTH AT BEDTIME ??? HYDROcodone-acetaminophen (Etoile) 10-325 mg Tablet TAKE 2 TABLETS BY [...] PHALANGES performed by Rohan Duarte MD at [facility] ??? PRO LAMINOTOMY, LUMBAR DISK, 1 INTRSP N/A 10/25/2019 LAMINOTOMY, DECOMPRESSION, FORAMINOTOMY, LUMBAR (WRVU 13.18) performed by Denzel Madison MD at [facility] OR ??? PRO MICROSURG TECHNIQUES, REQ OPER MICROSCOPE N/A 10/25/2019 MICROSCOPE USE (WRVU 3.46) performed by Denzel Madison MD at [facility] OR ??? PRO REMOVAL OF ELBOW BURSA Right 10/16/2014 EXCISION OF OLECRANON BURSA performed by Anupama Howard MD at [facility] ??? PRO TOTAL HIP ARTHROPLASTY Left 04/12/2020 TOTAL HIP ARTHROPLASTY, ANTERIOR APPROACH (WRVU 20.72) performed by Isidoro Lay MD at [facility] OR Physical Examination: There were no vitals taken for this visit. Physical Exam Neurological: Mental Status: He is alert. Psychiatric: Mood and Affect: Mood normal. Behavior: Behavior normal. Thought Content: Thought content normal. Judgment: Judgment normal. Impression/Recommendations : Enoc Esteban is a 62 y.o. male who presents today with gout clinically controlled patient ported no episodes. He does have secondary smoldering arthralgias after thorough review of his options he elected for trial of chloroquine 200 mg/day side effects reviewed expectations discussed we will see him again in follow-up in 6 weeks repeat laboratory studies in 3 to 4 weeks at [place] further changes pending his clinical course patient in agreement. 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
--- OUTSIDE RECORDS SUMMARY | 2024-08-29 14:12 | XMS_ITS | Encounter Summary ---
[place] [address] Care Team Providers Care Tablet Making Machine Operator Name Role Phone Astrid Grier MD Primary Care Provider Reason for Visit * Reason Comments Specialty Pharmacy Review Adalimumab (Hu maria m) Pen 40mg/0.8mL Encounter Details Date Type Department Care Team (Late st Contact Info) Description 08/10/2023 Specialty [place] [phone] Shy Ramirez, [facility] Social History Tobacco Use Types Packs/Day [...] encounter Progress Notes * Shy Ramirez - 08/10/2023 2:43 PM EDT The [facility] has completed a benefits investigation for Enoc Esteban to review theireligibility to fill at [facility]. Per patient's medication list they are prescribed Humira and the medication is currently filled through the [facility]. documented in this encounter Plan of Treatment Not on file documented as of this encounter Visit Diagnoses Not on filedocumented in this encounter Care Teams Tablet Making Machine Operator Relationship Specialty Start Date End Date Astrid Grier MD [address] [place] [address] PCP - General Family Medicine 04/06/23 documented as of this encounter
--- OUTSIDE RECORDS SUMMARY | 2024-08-29 14:12 | XMS_ITS | Encounter Summary ---
Author Organization [facility] Address [facility] [address] Care Team Providers Care Chemist Proteins Name Role Phone Alek Esparza MD Primary Care Provider [phone] Reason for Visit * Reason Comments Medication Management Encounter Details Date Type Department Care Team (Late st Contact Info) Description 10/14/2022 Specialty Pharmacy [place] [phone] Fletcher Velasquez [facility] Social History Tobacco Use Types Packs/Day Years [...] as of this encounter Progress Notes * Fletcher Velasquez RPH - 10/14/2022 3:29 PM EST Clinical Management Plan: Refill Specialty Pharmacy Consultation; Fletcher Velasquez Navya Comprehensive Medication Management (CMM) Enoc Esteban [...] 12-24-2020, 08:31 Medication Reconciliation Discrepancies (compared to [facility] med list) No Specialty Pharmacy Refill Questionnaire Refill Questionnaire 10/14/2022 What is the name of the specialty medication you are refilling? humira Are you taking any new medications? No Any new medical condition? No Any new allergies? No Any new side effects that are bothersome? No What date will you need this fill by? 10/22/2022 Adherence: Any missed doses? No Patient understands no changes to current drug regimen were made. Fletcher Velasquez RPH 10/14/22 3:29 PM documented in this encounter Plan of Treatment Not on file documented as of this encounter Visit Diagnoses Not on filedocumented in this encounter Care Teams Chemist Proteins Relationship Specialty Start Date End Date Alek Esparza MD [address] [place] [phone] PCP - General 09/03/10 04/05/23 documented as of this encounter
--- OUTSIDE RECORDS SUMMARY | 2024-08-29 14:12 | XMS_ITS | Encounter Summary ---
Author [place] [address] Care Team Providers Care Gearcase Assembler Name Role Phone Astrid Grier MD Primary Care Provider Reason for Referral * Consultation (Routine) - Closed Specialty Diagnoses / Procedures Referred By Contac t Referred To Contact [facility] Diagnoses Other buttermaker (current) drug therapy chronic back pain/ unable to do injection/ no new imaging/ ? next steps/ FRP FVE Danica Astrid Grier MD [address] [place] [address] [facility] [place] [address] Referral ID Status Reason Start Date Expiration Date V isits Requested Visits Authorized [id number] Closed Consult, Test & Treat PCP Updated and/or Approved 03/30/2023 03/30/2024 1 1 Encounter Details Date Type Department Care Team (Latest Contact Info) Description 04/06/2023 Transcribe Orders eDH Incoming Referrals [phone] Astrid Grier MD [address] [place], [place] [phone] Other buttermaker (current) drug therapy Social History Tobacco Use Types Packs/Day Years [...] of this encounter Plan of Treatment Scheduled Referrals Name Type Priority Associated Diagnoses Order Schedule Referral to Pain Management Outpatient Referral Routine Other assisted (current) drug therapy Ordered: 04/06/2023 documented as of this encounter Visit Diagnoses Diagnosis Other assisted (current) drug therapy documented in this encounter Care Teams Gearcase Assembler Relationship Specialty Start Date End Date Astrid Grier MD [address] [place] [address] PCP - General Family Medicine 04/06/23 documented as of this encounter
--- OUTSIDE RECORDS SUMMARY | 2024-08-29 14:12 | XMS_ITS | Encounter Summary ---
Author Organization [facility] Address [facility] [place] [address] Care Team Providers Care Associate Program Manager Name Role Phone Alek Esparza MD Primary Care Provider [phone] Encounter Details Date Type Department Care Team (Late st Contact Info) Description 04/03/2022 9:30 AM EDT Office [place] [phone] Baldomero Neal PA [address] [place] [address] Tophaceous gout; Arthralgia, unspecified joint; Medication monitoring encounter Social History Tobacco Use [...] Sign Reading Time Taken Comments Blood Pressure 109/79 04/03/2022 9:26 AM EDT Pulse 99 04/03/2022 9:26 AM EDT Temperature 36.1 ??C (96.9 ??F) 04/03/2022 9:26 AM ED T Respiratory Rate 16 04/03/2022 9:26 AM EDT Oxygen Saturation 96% 04/03/2022 9:26 AM EDT Inhaled Oxygen Concentration - - Weight 116 kg (255 lb 11.2 oz) 04/03/2022 9:26 A M EDT Height 180.3 cm (5' 10.98) 04/03/2022 9:26 AM E DT Body Mass Index 35.68 04/03/2022 9:26 AM EDT documented in this encounter Patient Instructions * Patient Instructions* Baldomero Neal PA - 04/03/2022 9:54 AM EDT Follow up 4 months Continue medications as previous documented in this encounter Progress Notes * Baldomero Neal PA - 04/03/2022 9:30 AM EDT Rheumatology Outpatient Note Chart review conducted prior [...] who presents today for evaluation of Gout . 22:Impression/Recommendations : Enoc Esteban is a 62 [...] studies in 3 to 4 weeks at [place] further changes pending his clinical course patient in agreement. Interval History: Patient presents today for follow-up. He has been on trial of hydroxychloroquine 200 mg/day reports minor fatigue with this medication so sometimes he takes it at night. He is also taking Cymbalta 20 mg/day. He continues on Uloric 40 mg per day for gout. Since adding the hydroxychloroquine and Cymbalta he reports an improvement in his arthralgias significant enough that he notices. He denies any red warm swollen joints or gout attacks. Is been no fevers or infectious-like symptoms he denies any difficulty tolerating his medications. Review of Systems Constitutional: Positive for malaise/fatigue (minor). Negative for anorexia, diaphoresis, weight loss and sleep disturbance. Respiratory: Negative for cough, shortness of breath, chest discomfort and orthopnea. Gastrointestinal: Negative for steatorrhea, diarrhea and trouble swallowing. HENT: Negative. Psychiatric/Behavioral: Negative for social aversion. Hematologic/Lymphatic: Negative. Allergic/Immunologic: Negative for immunocompromised state. [...] to Visit Medication Sig Dispense Refill ??? hydrOXYchloroQUINE (Plaquenil) 200 mg Tablet TAKE 1 TABLET BY MOUTH DAILY 30 tablet 3 ??? DULoxetine DR (Cymbalta) 30 mg Capsule, Delayed Release(E.C.) TAKE ONE CAPSULE BY MOUTH TWICE ADAY 60 capsule 3 ??? hydrOXYzine (ATARAX) 50 mg Tablet TAKE ONE TABLET BY MOUTH EVERY DAY AT DINNER ??? traZODone (Desyrel) 50 mg Tablet TAKE ONE TABLET BY MOUTH AT BEDTIME ??? HYDROcodone-acetaminophen (Accident) 10-325 mg Tablet TAKE 2 TABLETS BY [...] PHALANGES performed by Rohan Duarte MD at [facility] ??? PRO LAMINOTOMY, LUMBAR DISK, 1 INTRSP N/A 10/25/2019 LAMINOTOMY, DECOMPRESSION, FORAMINOTOMY, LUMBAR (WRVU 13.18) [facility] OR ??? PRO MICROSURG TECHNIQUES, REQ OPER MICROSCOPE N/A 10/25/2019 MICROSCOPE USE (WRVU 3.46) performed by Denzel Madison MD at [facility] OR ??? PRO REMOVAL OF ELBOW BURSA Right 10/16/2014 EXCISION OF OLECRANON BURSA performed by Anupama Howard MD at [facility] ??? PRO TOTAL HIP ARTHROPLASTY Left 04/12/2020 TOTAL HIP ARTHROPLASTY, ANTERIOR APPROACH (WRVU 20.72) performed by Isidoro Lay MD at [facility] OR Physical Examination: BP 109/79 Pulse 99 Temp 36.1 ??C (96.9 ??F) (Temporal) Resp 16 Ht 180.3 cm (5' 10.98) Wt116 kg (255 lb 11.2 oz) SpO2 96% BMI 35.68 kg/m?? Musculoskeletal: No peripheral synovitis noted reasonable range of motion throughout without tenderness. Physical Exam Constitutional: General: He is not in acute distress. Appearance: He is not ill-appearing, toxic-appearing or diaphoretic. HENT: Head: Normocephalic and atraumatic. Right Ear: External ear normal. Left Ear: External ear normal. Nose: Nose normal. Eyes: General: No scleral icterus. Right eye: No discharge. Left eye: No discharge. Conjunctiva/sclera: Conjunctivae normal. Cardiovascular: Rate and Rhythm: Rhythm irregular. Heart sounds: No friction rub. No gallop. Pulmonary: Effort: Pulmonary effort is normal. No respiratory distress. Breath sounds: Normal breath sounds. No stridor. No wheezing, rhonchi or rales. Chest: Chest wall: No tenderness. Abdominal: Palpations: Abdomen is soft. Tenderness: There is no guarding or rebound. Musculoskeletal: General: No swelling, tenderness, deformity or signs of injury. Right lower leg: [...] content normal. Judgment: Judgment normal. Laboratory Data: 6.7.22: uric acid 4.3 Cr 1.56 Impression/Recommendations : Enoc Esteban is a 62 y.o. male who presents today with history of gout secondary arthralgias gout clinically improved on Uloric 40 mg/day patient on trial of hydroxychloroquine 200 mg/day along withCymbalta 30 mg/day that seems to be adequately controlling his arthralgias. Was noted his creatinine was slightly up at his last laboratory evaluation on 03/18/2022. We will repeat his laboratory studies keep an eye on his creatinine as well as potassium. We will forward a copy to his PCP as well. Follow-up 2 to 4 months sooner if otherwise indicated patient in agreement. 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
--- OUTSIDE RECORDS SUMMARY | 2024-08-29 14:12 | XMS_ITS | Encounter Summary ---
Author Organization [facility] [place] [address] Care Team Providers Care Feed Mill Manager Name Role Phone Astrid Grier MD Primary Care Provider Reason for Visit * Auth/Cert (Routine) Specialty Diagnoses / Procedures Referred By Contac t Referred To Contact Diagnoses Encounter for screening for cardiovascular disorders Atherosclerotic heart disease of [place] coronary artery without angina pectoris Screening for cardiovascular condition [Z13.6] ASCVD (arteriosclerotic cardiovascular disease) [I25.10] Procedures PRG CATH PLMT LEFT HEART CATH & ARTS W/INJ & ANGIO IMG S&I CARDIAC CATHETERIZATION CORONARY ANGIOGRAPHY; W LHC,POSSIBLE PCI (WRVU 5.6) Key Pate MD [facility] [place] [address] [facility] Referral ID Status Reason Start Date Expiration Date Visits Re quested Visits Authorized [id number] 1 1 Encounter Details Date Type Department Care Team (Late st Contact Info) Description 11/20/2023 10:00 AM EST - 11/20/2023 11:00 AM EST [place] [address] Key Pate MD [facility] [place] [address] CARDIAC CATHETERIZATION Social History Tobacco Use Types Packs/Day Years [...] Sign Reading Time Taken Comments Blood Pressure 123/92 11/20/2023 10:36 AM EST Pulse 80 11/20/2023 10:36 AM EST Temperature 37 ??C (98.6 ??F) 11/20/2023 10: 36 AM EST Respiratory Rate 16 11/20/2023 10:3 6 AM EST Oxygen Saturation 99% 11/20/2023 10: 36 AM EST Inhaled Oxygen Concentration - - Weight [...] Your Primary Care Provider: Astrid Sandoval MD [phone] For questions regarding this document or issues relating to this hospitalization on the Medical Service, please contact your inpatient physician through the [facility] . Issues afterhours and on weekends will be handled by the Hospitalist staff on-call. documented in this encounter Medications at Time of Discharge Medication Sig Dispensed Refills Start Date End Date triamcinolone (KENALOG) 0.025 % Cream APPLY A THIN FILM TOPICALLY TWO TIMES A DAY NEEDED FOR ITCHING/ RASH/ REDNESS 08/22/2022 naloxone (Narcan) 4 mg/actuation [place], Non-Aerosol by Nasal route. 07/22/2022 traZODone (Desyrel) 50 mg Tablet TAKE ONE TABLET BY MOUTH AT BEDTIME 10/13/2020 HYDROcodone-acetami nophen ([place]) 10-325 mg Tablet TAKE 2 TABLETS BY [...] Ho RN - 11/20/2023 3:45 PM EST track laborer staff finished holding pressure on right wrist and placed new tegraderm and gauze. * Soni Ho RN - 11/20/2023 3:28 PM EST Joao Zoe here to hold pressure on hematoma right wrist documented in this encounter H&P Notes * Aldo Barnes - 11/20/2023 7:28 AM EST Images from [...] by mouth nightly. 180 capsule 1 HYDROcodone-acetaminophen ([place]wing) 10-325 mg Tablet TAKE 2 TABLETS BY [...] to this, which is in the chart Sparks Molly Pager [phone] documented in this encounter Plan of Treatment [...] Modality Other Narrative 11/20/2023 2:12 PM EST ?[facility] ? Cardiac Catheterization/Intervention Report ? Patient Name: Enoc Esteban. ? Procedure Date: 11/20/2023 ? A #: [id number] ? Primary Physician: Key Pate I ? Case #: [id number] ? File Name: [id number] ? Catheterization Order Number: [id number] ? [facility] ? Final Report [place], [place] ? Patient Name: ? Enoc Esteban ? ID#: ?[id number] ? : ?1960 ? Procedure Date: ? November 20, 2023 ? Case #: ? [id number] ? Room: ? 2 ? Case Physician: ? Key Pate M.D. ? Start: ?11:34 ?Fellow: ? Salinas Mcgrath M.D. ?Admission: ??11/20/2023 ? Referring Physician: ??Anat K Kwabenau, CONFERENCE SERVICES DIRECTOR ? Procedures: ?* Coronary Angiography ?* Left Heart Catheterization ?* Coronary Instantaneous Wave-Free Ratio (iFR) ? History ?Enoc MockCleo Jiangayaka ??is a 63 year old man. He [...] was designated as ASA Class III. The CSHA clinical ?frailty scale is 4: Vulnerable. ? Diagnostic Tests: ?Medications Prior to Procedure: ? Angiotensin II Receptor Shant and Beta Shant. ? Indications for Diagnostic Cath: ?The priority of the diagnostic procedure was Urgent. The indication for ?the lab specialist visit is other indication. Chest pain symptom [...] left heart ?catheterization and IFR-coronary. ? Key Pate, M.D. ? Electronically Signed by: Key Pate M.D. ? Report Finalized: 11/20/2023 ??14:07 ? Procedure Note Key Pate MD - 11/20/2023 [facility] Cardiac Catheterization/Intervention Report Patient Name: Enoc Esteban Procedure Date: 11/20/2023 A #: [id number] Primary Physician: Key Pate I Case #: [id number] File Name: [id number] Catheterization Order Number: [id number] [facility] FinalReport [place], [place] Patient Name: Enoc Esteban ID#:[id number] :1960 Procedure Date: November 20, 2023 Case #: [id number] Room: 2 Case Physician: Key Pate M.D. Start: 11:34 Fellow: Salinas Mcgrath M.D. Admission:11/20/2023 Referring Physician: Anat Cross APRN Procedures: * Coronary Angiography * Left Heart Catheterization * Coronary Instantaneous Wave-Free Ratio (iFR) History Enco Esteban is a 63 year old man. [...] diagnostic procedure was Urgent. The indicationfor the lab specialist visit is other indication. Chest pain symptomassessment [...] IFR-coronary. Key Pate M.D. Electronically Signed by: eKy Pate M.D. Report Finalized: 11/20/2023 14:07 Key Vaughan MD CARDIAC CATH ORDERA BLES * EKG 12 Lead (11/20/2023 11:02 AM EST) Ventricular rate 68 BPM MUSE SYSTEM QRS Duration 76 ms MUSE SYSTEM Q-T Interval 388 ms MUSE SYSTEM QTC Calculated (Bezet) 412 ms MUSE SYSTEM Calculated R [place] 43 degrees MUSE SYSTEM Calculated T [place] -3 degrees MUSE SYSTEM INTERPRETATION Atrial fibrillation Abnormal ECG When compared with ECG of 19-JUL-2019 11:31, No significant change was found Confirmed by MD [place] David ([id number]) on 11/29/2023 2:48:54 PM MUSE SYSTEM 11/20/2023 [...] Given 11/20/2023 3:50 PM EST 975 mg fentaNYL (pf) (50 mcg/mL) multi-dose injection PRN, Starting on Thu11/20/23 at 1125, Until Thu11/20/23 at 1223, Intra-Operative (Intra-Procedure), Routine Given 11/20/2023 12:11 PM EST 25 mcg Given 11/20/2023 12:04 PM EST 25 mcg Given 11/20/2023 11:54 AM EST 25 mcg heparin (porcine) (1,000 units/mL) injection PRN, Starting on Thu11/20/23 at 1135, Until Thu11/20/23 at 1223, Intra-Operative (Intra-Procedure), Routine Given 11/20/2023 12:15 PM EST 3,000 Units Given 11/20/2023 11:35 AM EST 6,000 Units midazolam (pf) (Versed) (1 mg/mL) injection PRN, Starting on Thu11/20/23 at 1125, Until Thu11/20/23 at 1223, Intra-Operative (Intra-Procedure), Routine Given 11/20/2023 12:04 PM EST 1 mg Given 11/20/2023 11:55 AM EST 1 mg Given 11/20/2023 11:48 AM EST 1 mg nitroGLYcerin 100 mcg/mL intracoronary dilution PRN, Starting on Thu11/20/23 at 1133, Until Thu11/20/23 at 1223, Intra-Operative (Intra-Procedure), Routine Given 11/20/2023 11:55 AM EST 200 mcg Given 11/20/2023 11:48 AM EST 150 mcg Given 11/20/2023 11:33 AM EST 150 mcg sodium chloride 0.9% infusion 100 mL/hr, Intravenous, CONTINUOUS, Starting on Thu11/20/23 at 1245, Until Thu11/20/23 at 1644, Recovery (Recovery-Hospital Unit) Continued Bag 11/20/2023 12:45 PM EST 100 mL/hr 100 mL/hr verapamiL (Isoptin) (2.5 mg/mL) injection PRN, Starting on Thu11/20/23 at 1133, Until Thu11/20/23 at 1223, Administer over 2 Minutes, Intra-Operative (Intra-Procedure) Given 11/20/2023 11:49 AM EST 2.5 mg Given 11/20/2023 11:33 AM EST 2.5 mg documented in this encounter Active and [...] Delma Walker RN)1154 (Given - Provider: Katie Melendez, SKY)1204 (Given - Provider: Delma Walker RN)1211 (Given - Provider: Katie Melendez RN) heparin (porcine) (1,000 units/mL) injection (CANCELED) PRN, Starting on Thu11/20/23 at 1135, Until Thu11/20/23 at 1223, Intra-Operative (Intra-Procedure), Routine 1135 (Given - Provid er: Delma Walker RN)1215 (Given - Provider: Delma Walekr RN) midazolam (pf) (Versed) (1 mg/mL) injection [...] (Intra-Procedure), Routine 1125 (Given - Provid er: Demla Walker RN)1148 (Given - Provider: Delma Walker [...] MD) documented in this encounter Care Teams Feed Mill Manager Relationship Specialty Start Date End Date Astrid Grier MD [address] [place] [address] PCP - General Family Medicine 04/06/23 documented as of this encounter
--- OUTSIDE RECORDS SUMMARY | 2024-08-29 14:12 | XMS_ITS | Encounter Summary ---
Author Organization [facility] [place] [address] Care Team Providers Care Brush Machine Setter Name Role Phone Astrid Grier MD Primary Care Provider Reason for Visit * Reason Comments Medication Management Encounter Details Date Type Department Care Team (Late st Contact Info) Description 06/16/2023 Specialty [place] [phone] Gricel Zheng [facility] Social History Tobacco Use Types [...] as of this encounter Progress Notes * Gricel Zheng RPH - 06/16/2023 12:25 PM EDT Clinical Management Plan: Refill Specialty Pharmacy Consultation; Gricel Zheng [facility] Comprehensive Medication Management (CMM) Enoc [...] 12-24-2020, 08:31 Medication Reconciliation Discrepancies (compared to [facility] med list) No Specialty Pharmacy Refill Questionnaire More data exists 06/16/2023 Refill Questionnaire What is the name of the specialty medication you are refilling? Humira Are you taking any new medications? No Any new medical condition? No Any new allergies? No Any new side effects that are bothersome? No What date will you need this fill by? 06/19/2023 Adherence: Any missed doses? No Patient understands no changes to current drug regimen were made. Gricel Zheng RPH 06/16/23 12:26 PM documented in this encounter Plan of Treatment Not on file documented as of this encounter Visit Diagnoses Not on filedocumented in this encounter Care Teams Brush Machine Setter Relationship Specialty Start Date End Date Astrid Grier MD [address] [place] [address] PCP - General Family Medicine 04/06/23 documented as of this encounter
--- OUTSIDE RECORDS SUMMARY | 2024-08-29 14:12 | XMS_ITS | Encounter Summary ---
Author Organization [facility] [place] [address] Care Team Providers Care Turn Sewer Name Role Phone Alek Esparza MD Primary Care Provider [phone] Encounter Details Date Type Department Care Team (Latest Contact Info) Description 08/04/2022 2:30 PM EDT TH Visit (TeleHealth) [place] [phone] Baldomero Neal PA [address] [place] [address] Inflammatory arthritis (Primary Dx); Tophaceous gout; Arthralgia, unspecified joint; Medication monitoring encounter; Lumbar radiculopathy; Positive MICHI (antinuclear antibody); History of lumbar surgery; Hypertension, unspecified type; TYRON (obstructive sleep apnea); Chronic atrial fibrillation; Insulin resistance; Psychophysiologic insomnia; Transient ischemic attack Social History Tobacco Use Types Packs/Day Years [...] * Patient Instructions* Baldomero Neal PA - 08/04/2022 2:30 PM EDT - Discontinue SSS - Discontinue HcQ - Initiate a trial of Humira - Continue other medications as previous - Follow up in 2 months documented in this encounter Progress Notes * Baldomero Neal PA - 08/04/2022 2:30 PM EDTSummary: Gout Rheumatology Outpatient Note Chart review conducted prior [...] male who presents today for evaluation of Gout. 04.03.22:Impression/Recommendations : Enoc Esteban is a 62 y.o. [...] sooner if otherwise indicated patient in agreement. Interval History: Patient presents today for follow-up. He reports since his last evaluation is been no gout attacks he continues on Uloric 40 mg/day there is been no red warm swollen joints. He reports ongoing tenderness in his hips mainly on the outside he has difficulty laying on his side at night he also reportsthe same arthralgias in his shoulders he did have interarticular injections in his shoulders and itimproved his symptoms for couple weeks. Sometimes his feet hurt. Anytime he takes prednisone he gets better. He is on both sulfasalazine and hydroxychloroquine and does not feel either medication makes much difference in the way he feels. He has had x-rays of her shoulders that did show low-grade os teoarthritic changes without erosions and no obvious soft tissue swelling there. Because of this discomfort he has difficulty sleeping and reports significant stiffness when he wakes up in the morning may be an hour and a half before things improve. Review of Systems Constitutional: Negative for weight loss, malaise/fatigue and chills. Respiratory: Negative for shortness of breath, chest discomfort, hemoptysis and orthopnea. Gastrointestinal: Negative for steatorrhea, diarrhea and trouble swallowing. HENT: Negative. Psychiatric/Behavioral: Negative for social aversion. Hematologic/Lymphatic: Negative. Allergic/Immunologic: Negative for recurrent infections. Musculoskeletal: Positive for joint pain and stiffness. Negative for myalgias, joint swelling and fracture. Endocrine: Negative for polydipsia, polyphagia, polyuria and Cushingoid appearance. Cardiovascular: Negative for syncope. Skin: Negative for dry skin, urticaria, blister and photosensitivity. Allergies Allergies Allergen [...] TABLET BY MOUTH AT BEDTIME ??? HYDROcodone-acetaminophen ([place]) 10-325 mg Tablet TAKE 2 TABLETS BY [...] 13.18) [facility]?? PRO MICROSURG TECHNIQUES, REQ OPER MICROSCOPE N/A 10/25/2019 MICROSCOPE USE (WRVU 3.46) performed by Denzel Madison MD at [facility] MAIN OR ??? PRO REMOVAL OF ELBOW BURSA Right 10/16/2014 EXCISION OF OLECRANON BURSA performed by Anupama Howard MD at [facility] OSC ??? PRO TOTAL HIP ARTHROPLASTY Left 04/12/2020 TOTAL HIP ARTHROPLASTY, ANTERIOR APPROACH (WRVU 20.72) performed by Isidoro Lay MD at [facility] MAIN OR Physical Examination: There were no [...] elected for a trial of Humira SER. 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) Arthralgia, unspecified joint Medication monitoring encounter Encounter for therapeutic drug monitoring Lumbar radiculopathy Thoracic or lumbosacral neuritis or radiculitis, unspecified Positive MICHI (antinuclear antibody) Other and unspecified nonspecific immunological findings History of lumbar surgery Hypertension, unspecified type TYRON (obstructive sleep apnea) Obstructive sleep apnea (adult) (pediatric) Chronic atrial fibrillation Atrial fibrillation Insulin resistance Dysmetabolic Syndrome X Psychophysiologic insomnia Persistent disorder of initiating or maintaining sleep Transient ischemic attack Unspecified transient cerebral ischemia documented in this encounter Care Teams Turn Sewer Relationship Specialty Start Date End Date Alek Esparza MD [address] [place] [phone] PCP - General 09/03/10 04/05/23 documented as of this encounter
--- OUTSIDE RECORDS SUMMARY | 2024-08-29 14:12 | XMS_ITS | Encounter Summary ---
Author Organization [facility] [place] [address] Care Team Providers Care Grain Picker Name Role Phone Alke Esparza MD Primary Care Provider [phone] Encounter Details Date Type Department Care Team ([facility] st Contact Info) Description 08/05/2022 Orders [place] [phone] Baldomero Neal PA [address] [place] [address] Medication monitoring encounter Social History Tobacco Use [...] monitoring documented in this encounter Care Teams Grain Picker Relationship Specialty Start Date End Date Alek Esparza MD [address] [place] [phone] PCP - General 09/03/10 04/05/23 documented as of this encounter
--- OUTSIDE RECORDS SUMMARY | 2024-08-29 14:12 | XMS_ITS | Encounter Summary ---
Author Organization [facility] Address [facility] [place] [address] Care Team Providers Care Public Health Social Worker Name Role Phone Alek Esparza MD Primary Care Provider [phone] Encounter Details Date Type Department Care Team (Latest Contact Info) Description 11/04/2021 3:00 PM EST TH Visit (TeleHealth) [place] [phone] Baldomero Neal PA [address] [place] [address] Tophaceous gout (Primary Dx); Arthralgia, unspecified joint; Medication monitoring encounter; History of lumbar surgery Social History Tobacco Use Types Packs/Day Years [...] Progress Notes * Baldomero Neal PA - 11/04/2021 3:00 PM ESTSummary: Gout/OA Rheumatology Outpatient Note Chart review conducted prior [...] the patient's medical or mental health care. Patient utilizing the phone as opposed to video technology issues. History of Present Illness: Enoc Esteban is a 61 y.o. male who presents today for evaluation of Gout and Osteoarthritis. 09/09/21:Impression/Recommendations : Enoc Esteban is a 61 y.o. male who presents today with Gout and Osteoarthritis. Patient denies anygout flares with ongoing shoulder arthralgias and some improvement in restfulness and joint pain since initiating Cymbalta at night. Patient with no features suggestive by history suggestive of GCA. After review of his options he elected to: ?? 1. Xray BL Shoulders 2. Update laboratory studies 3. Continue Cymbalta nightly 60 mg 4. Rx for Medrol dose pack patient will call after completion 5. Continue Uloric as previous. ?? Further changes pending his clinical course follow-up 2 to 3 months, patient in agreement. Interval History: Patient presents today for follow-up. He continues on Uloric 40 mg/day he denies any gout flares. He takes Cymbalta at night 60 mg he finds that is helpful with his restfulness. Despite this combination therapy he wakes up stiff in the morning generally lasting about an hour. Once he gets going he is a little bit better. There is been no fevers or infectious-like symptoms. Anytime he takes prednisone he feels much better. He is currently due for laboratory studies. Review of Systems Constitutional: Negative for anorexia, diaphoresis, chills and sleep disturbance. Respiratory: Negative for cough, shortness of breath, hemoptysis, orthopnea and pleuritic pain. Gastrointestinal: Negative for abdominal discomfort, vomiting, diarrhea and trouble swallowing. HENT: Negative. Psychiatric/Behavioral: Negative for social aversion. Hematologic/Lymphatic: Negative. Allergic/Immunologic: Negative for recurrent infections and immunocompromised state. Musculoskeletal: Positive for stiffness. Negative for joint pain, myalgias, joint swelling and fracture. Endocrine: Negative for polydipsia, polyphagia, polyuria and Cushingoid appearance. Cardiovascular: Negative for syncope. Neurological: Negative for vertigo. Skin: Negative for urticaria, blister, photosensitivity and acne. Allergies Allergies Allergen Reactions ??? Allopurinol Rash Medications Current Outpatient Medications on File Prior to Visit Medication Sig Dispense Refill ??? methylPREDNISolone (Medrol, Chucky,) 4 mg Tablets, Dose Pack Use as directed on product package. 21 tablet 0 ??? hydrOXYzine (ATARAX) 50 mg Tablet TAKE ONE TABLET BY MOUTH EVERY DAY AT DINNER ??? traZODone (Desyrel) 50 mg Tablet TAKE ONE TABLET BY MOUTH AT BEDTIME ??? HYDROcodone-acetaminophen ([place]) 10-325 mg Tablet TAKE 2 TABLETS BY [...] PHALANGES performed by Rohan Duarte MD at [facility]SC ??? PRO LAMINOTOMY, LUMBAR DISK, 1 INTRSP N/A 10/25/2019 LAMINOTOMY, DECOMPRESSION, FORAMINOTOMY, LUMBAR (WRVU 13.18) [facility] ??? PRO MICROSURG TECHNIQUES, REQ OPER MICROSCOPE N/A 10/25/2019 MICROSCOPE USE (WRVU 3.46) performed by Denzel Madison MD at [facility] MAIN OR ??? PRO REMOVAL OF ELBOW BURSA Right 10/16/2014 EXCISION OF OLECRANON BURSA performed by Anupama Howard MD at [facility] O[facility] ??? PRO TOTAL HIP ARTHROPLASTY Left 04/12/2020 TOTAL HIP ARTHROPLASTY, ANTERIOR APPROACH (WRVU 20.72) performed by Isidoro Lay MD at [facility] MAIN OR Physical Examination: There were no vitals taken for this visit. Physical Exam Skin: Findings: No acne. Neurological: Mental Status: He is alert. Psychiatric: [...] review of his options patient elected to: Continue Uloric as previous Continue Cymbalta as previous as he does find it helpful Discussed the possibility of empiric treatment for low-grade inflammatory arthritis given the dramatic response he has took prednisone. He elected for an empiric trial of sulfasalazine 500 mg/day we will update laboratory studies today and again in 4 weeks side effects reviewed expectations discussed. 4-week follow-up telehealth sooner if indicated documented in this encounter Plan of Treatment Not on file documented as of this encounter Visit Diagnoses Diagnosis Tophaceous gout- Primary Chronic gouty arthropathy with tophus (tophi) Arthralgia, unspecified joint Medication monitoring encounter Encounter for therapeutic drug monitoring History of lumbar surgery documented in this encounter Care Teams Public Health Social Worker Relationship Specialty Start Date End Date Alek Esparza MD [address] [place] [phone] PCP - General 09/03/10 04/05/23 documented as of this encounter
--- OUTSIDE RECORDS SUMMARY | 2024-08-29 14:12 | XMS_ITS | Encounter Summary ---
[place] [address] Care Team Providers Care Rn Mental Health Name Role Phone Astrid Grier MD Primary Care Provider Reason for Visit * Reason Comments Medication Management Encounter Details Date Type Department Care Team (Late st Contact Info) Description 09/09/2023 Specialty [place] [phone] Surinder Aguiar [facility] Social History Tobacco Use Types Packs/Day [...] Progress Notes * Surinder Aguiar RPH - 09/09/2023 3:22 PM EST Clinical Management Plan: Discontinuation of Therapy Specialty Pharmacy Consultation; Surinder Aguiar [facility] Comprehensive Medication Management (CMM) Enoc Esteban [address] [place] [phone] Telephone Information: Work Phone Not on file. Is the patient transferring services to a different Specialty Pharmacy, discontinuing the medication, or modifying current Specialty services? Discontinuing Medication (Optional) If modifying Specialty services, patient unenrolls from: Medication: Humira Reason for discontinuation or transfer of services: Therapy discontinued Approximate date of discontinuation, modification, or transfer of services: 09/09/23 Patient's response to therapy: ineffective Summary of services provided by [facility] Specialty: Benefits investigation, medication access assistance, initial clinical assessment, follow up clinical assessment(s), refill management, care plan reviewprior to dispensing, and 04/05 access to an on-call specialty pharmacist Summary of on-going needs: None at this time Referral for additional services (if applicable): none Is patient aware of referral? no Instructions provided to patient about discharge/transfer: no Provider aware of discontinuation or transfer: Yes Patient understands no changes to current drug regimen were made at the appointment and that [facility] (summary located at top of note) for provider review and follow up. Of note, if transferring to another specialty pharmacy, a copy of patient's medication profile was offered to accepting pharmacy. Surinder Aguiar RPH 09/09/23 3:23 PM documented in this encounter Plan of Treatment Not on file documented as of this encounter Visit Diagnoses Not on filedocumented in this encounter Care Teams Rn Mental Health Relationship Specialty Start Date End Date Astrid Grier MD [address] [place] [address] PCP - General Family Medicine 04/06/23 documented as of this encounter
--- OUTSIDE RECORDS SUMMARY | 2024-08-29 14:12 | XMS_ITS | Encounter Summary ---
Author Organization [facility] [place] [address] Care Team Providers Care Supervisor Elementary Education Name Role Phone Alek Esparza MD Primary Care Provider [phone] Encounter Details Date Type Department Care Team (Latest Contact Info) Description 10/01/2022 Travel Social History Tobacco Use Types Packs/Day [...] on filedocumented in this encounter Care Teams Supervisor Elementary Education Relationship Specialty Start Date End Date Alek Esparza MD [address] [place] [phone] PCP - General 09/03/10 04/05/23 documented as of this encounter
--- OUTSIDE RECORDS SUMMARY | 2024-08-29 14:12 | XMS_ITS | Encounter Summary ---
Author Organization [facility] Address [facility] [place] [address] Care Team Providers Care Burrer Machine Name Role Phone Astrid Grier MD Primary Care Provider Encounter Details Date Type Department Care Team (Latest Contact Info) Description 08/21/2023 8:30 AM EST TH Visit (TeleHealth) [place] [phone] Baldomero Neal PA [address] [address] Inflammatory arthritis (Primary Dx); Tophaceous gout; Arthralgia, unspecified joint; Lumbar radiculopathy; Medication monitoring encounter Social History Tobacco Use [...] Progress Notes * Baldomero Neal PA - 08/21/2023 8:30 AM EST Rheumatology Outpatient Note Chart review conducted [...] male who presents today for evaluation of snra Impression/Recommendations : Enoc Esteban is a 63 [...] cymbalta as previous Update laboratory studies today Interval History: Patient presents today for follow-up of seronegative rheumatoid arthritis and gout hyperuricemia he reports he is uncertain as to whether or not Humira helps him he does not experience waxing and waning arthralgias with each shot he continues on Cymbalta and thinks that is helpful. He recently had a stress test. Was found to be in chronic A-fib. He also had a sleep study and a CPAP was suggested he is looking into that. He has a variety of arthralgias depending on activity sometimes in the morning his feet hurt him when he wakes up and feels like he is walking on glass but this appears. When he walks a long time he gets pain in his lateral hips. There is been no joint effus ions red warm swollen joints he denies any B symptoms. Review of Systems Constitutional: Negative for diaphoresis, fever and chills. Respiratory: Negative for cough, PND and wheezing. Gastrointestinal: Negative for steatorrhea, diarrhea and trouble swallowing. HENT: Negative. Psychiatric/Behavioral: Negative for social aversion. Hematologic/Lymphatic: Negative. Allergic/Immunologic: Negative for recurrent infections. Musculoskeletal: Positive for joint pain and stiffness. Negative for myalgias and fracture. Endocrine: Negative for polydipsia, polyphagia, polyuria and Cushingoid appearance. Cardiovascular: Negative for syncope. Neurological: Negative for vertigo and hearing loss. Skin: Negative for urticaria, blister and photosensitivity. Allergies Allergies Allergen Reactions Allopurinol Rash Ketoconazole Rash patient states the rash was from allopurinol not this, and he has used it without issue.%0ALast modified by Alysia Alcaraz 12-24-2020, 08:31 Medications Current Outpatient Medications on File Prior to Visit Medication Sig Dispense Refill Adalimumab (Humira Pen) 40 mg/0.8 mL Pen Injector Kit Inject 0.8 mLs subcutaneously every 14 days. [address] (Cymbalta) [address] capsule Take 2 capsules by mouth nightly. 180 capsule 1 triamcinolone (KENALOG) 0.025 % Cream APPLY A THIN FILM TOPICALLY TWO TIMES A DAY NEEDED FOR ITCHING/ RASH/ REDNESS naloxone (Narcan) 4 mg/actuation [place], Non-Aerosol by Nasal route. hydrOXYzine (ATARAX) 50 mg Tablet TAKE ONE TABLET BY MOUTH EVERY DAY AT DINNER traZODone (Desyrel) 50 mg Tablet TAKE ONE TABLET BY MOUTH AT BEDTIME HYDROcodone-acetaminophen (Big Arm) 10-325 mg Tablet TAKE 2 TABLETS BY [...] G45.9 Chronic pain G89.29 Inflammatory arthritis M19.90 SurgHX Past Surgical History: Procedure Laterality Date PRO ARTHROPLASTY ACETABULAR/PROX FEM PROSTC AGRFT/ALGRFT Left 04/12/2020 TOTAL HIP ARTHROPLASTY, ANTERIOR APPROACH (WRVU 20.72) performed by Isidoro Lay MD at [facility] MA[facility] OR PRO CLOSED TREAT TOE FX 02/08/2013 CLOSED TREATMENT FX PHALANX OR PHALANGES performed by Rohan Duarte MD at [facility] PRO LAMINOTOMY, LUMBAR DISK, 1 INTRSP N/A 10/25/2019 LAMINOTOMY, DECOMPRESSION, FORAMINOTOMY, LUMBAR (WRVU 13.18) [facility] PRO MICROSURG TECHNIQUES, REQ OPER MICROSCOPE N/A 10/25/2019 MICROSCOPE USE (WRVU 3.46) performed by Denzel Madison MD at [facility] MA[facility] OR PRO REMOVAL OF ELBOW BURSA Right 10/16/2014 EXCISION OF OLECRANON BURSA performed by Anupama Howard MD at [facility] Physical Examination: There were no vitals taken for this visit. Physical Exam Constitutional: General: He is not in acute distress. Neurological: Mental Status: He is alert. [...] as previous Update laboratory studies today at [facility] Follow-up 8 to 10 weeks via telehealth sooner if otherwise indicated. Telehealth being utilized dueto distance. 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
--- OUTSIDE RECORDS SUMMARY | 2024-08-29 14:12 | XMS_ITS | Encounter Summary ---
Author Organization [facility] Address [facility] [place] [address] Care Team Providers Care [place]. Representative Name Role Phone Alek Esparza MD Primary Care Provider [phone] Encounter Details Date Type Department Care Team (Late st Contact Info) Description 11/19/2021 Telephone [place] [phone] Marcial Lake RN Social History Tobacco Use Types Packs/Day [...] Telephone Encounter - Marcial Lake RN - 11/22/2021 1:16 PM EST [facility]as sent to Marcial Lake RN Caller: Unspecified (3 days ago, ??1:15 PM) Sent new labs to [facility] and called patient, however he says he went yesterday and completed them. Let him know they had contacted us for new orders but he confirms they took blood. Will keep an eye out if results are sent today. - Mar ?? * Telephone Encounter - Marcial Lake RN - 11/21/2021 4:11 PM EST Images from the original note were not included. November 21, 2021 Baldomero Neal PA to Me ?? 10:51 AM Orders placed, if ot desires new medication it will be pending review of these labs repeating in 4 weeks * Telephone Encounter - Mercy Navas - 11/20/2021 2:08 PM EST Orders were sent but we received notification that the orders are . It appears they 11/15 * Telephone Encounter - Marcial Lake RN - 11/19/2021 3:53 PM EST Enoc calls to advise an Rx for Medication discussed at last appointment was never sent to his pharmacy. Looks like labs were never done. RTC to Enoc, he does not recall anyone telling him he needed another set of labs. States he had labs in September. Will have done at [facility]. Labs will need to be faxed to [facility] and Enoc will go tomorrow. [facility] Navas sent to Marcial Lake RN Caller: Unspecified (Yesterday, ??1:15 PM) Orders have been sent to [facility] - [facility] ?? documented in this encounter Plan of Treatment Not on file documented as of this encounter Visit Diagnoses Not on filedocumented in this encounter Care Teams U.S. Representative Relationship Specialty Start Date End Date Alek Esparza MD [address] [place] [phone] PCP - General 09/03/10 04/05/23 documented as of this encounter
--- OUTSIDE RECORDS SUMMARY | 2024-08-29 14:12 | XMS_ITS | Encounter Summary ---
Author Organization [facility] [place] [address] Care Team Providers Care Iron Piler Name Role Phone Alek Esparza MD Primary Care Provider [phone] Reason for Visit * Reason Comments Medication Refill Encounter Details Date Type Department Care Team ([facility] Contact Info) Description 07/21/2022 [place] [phone] Baldomero Neal PA [address] [place] [address] Social History Tobacco Use Types Packs/Day Years [...] on filedocumented in this encounter Care Teams Iron Piler Relationship Specialty Start Date End Date Alek Esparza MD [address] [place] [phone] PCP - General 09/03/10 04/05/23 documented as of this encounter
--- OUTSIDE RECORDS SUMMARY | 2024-08-29 14:12 | XMS_ITS | Encounter Summary ---
Author Organization [facility] [place] [address] Care Team Providers Care Insurance Account Executive Name Role Phone Astrid Grier MD Primary Care Provider Reason for Referral * Consultation (Urgent) - Closed Specialty Diagnoses / Procedures Referred By Contac t Referred To Contact Cardiology Diagnoses Atrial fibrillation, unspecified type AF, Tikosyn load Jeanette, Larry Rai MD [address] [place] [address] [place] [address] [facility] [address] [place] [phone] Referral ID Status Reason Start Date Expiration Date V isits Requested Visits Authorized [id number] Closed Consult, Test & Treat 01/28/2024 01/27/2025 1 1 Encounter Details Date Type Department Care Team (Latest Contact Info) Description 01/28/2024 Transcribe Orders Cardiology at [address] [phone] Fabby Roblero Atrial fibrillation, unspecified type Social History Tobacco Use Types Packs/Day Years Used Date Smoking Tobacco: Never Smokeless Tobacco: Never Alcohol Use Standard Drinks/Week Comments Yes 23 (1 standard drink = 0.6 oz pu re alcohol) 2-3 drinks daily [facility] Inpatient Questions Answer Date Recorded Does [...] Priority Associated Diagnoses Order Schedule Referral to Cardiac Electrophysiology Outpatient Referral Urgent Atrial fibrillation, unspecified type Ordered: 01/28/2024 documented as of this encounter Visit Diagnoses Diagnosis Atrial fibrillation, unspecified type documented in this encounter Care Teams Insurance Account Executive Relationship Specialty Start Date End Date Astrid Grier MD [address] [place] [address] PCP - General Family Medicine 04/06/23 documented as of this encounter
--- OUTSIDE RECORDS SUMMARY | 2024-08-29 14:12 | XMS_ITS | Encounter Summary ---
Author Organization [facility] [place] [address] Care Team Providers Care Concrete Batch Plant Operator Name Role Phone Astrid Grier MD Primary Care Provider Reason for Visit * Reason Comments Prior Authorization Encounter Details Date Type Department Care Team (Late st Contact Info) Description 12/11/2022 Specialty [place] [phone] Yeni Nieto, [facility] Social History Tobacco Use Types Packs/Day Years Used Date Smoking Tobacco: Never Smokeless Tobacco: Never Alcohol Use Standard Drinks/Week Comments Yes 16 (1 standard drink = 0.6 oz pu re alcohol) 2-3 drinks daily [facility] Inpatient Questions Answer Date Recorded Does Anyone [...] as of this encounter Progress Notes * Yeni Major - 12/11/2022 2:08 PM EST [facility], Medication Prior Authorization Submission Patient: Enoc Esteban Patient : 1960 Patient Address: [address] [place] [phone] (home) Medication Name: HUMIRA PEN 40 MG/0.8 ML SUBCUTANEOUS KIT Medication ID: [id number] Subscriber Insurance: [place] Medicaid Subscriber Insurance Comment: Fax: Physician: LOTTIE MTZ Physician Comment: Sent Via: [facility] [place]: [id number] Ref/Case/PA#: Medication Strength Frequency Requested: Humira Pen 40mg/0.8ml INJECT THE CONTENTS OF ONE PEN (40 MG) SUBCUTANEOUSLY ONCE EVERY 14 DAYS Qty/Day Supply: 12/09 New Start: Renewal Diagnosis & ICD-10 Code: Rheumatoid Arthritis M06.00 Patient Notified: Yes Submission Notes: - Reauthorization Yeni Major 12/11/22 2:11 PM * Yeni Major - 12/11/2022 2:08 PM EST [facility], Prior Authorization Approval Medication Name: HUMIRA PEN 40 MG/0.8 ML SUBCUTANEOUS KIT Medication ID: [id number] Approval Dates: 12/11/2022 to 12/12/2023 Insurance requirements/notes: - Patient may fill with [facility] Other Notes: None Case/Reference #: [id number] Approval notification Received via: Fax Copay: $3.00 Copay assistance: None Copay Notes: NA Insurance mandated Pharmacy: [facility] Fill[facility] at [facility] Specialty Pharmacy: Yes Pharmacy staff will be reaching out to the patient to inform them of their medication's [facility]. If applicable, a pharmacist will speak with the patient to offer our specialty pharmacy services and to arrange delivery of their medication. Yeni Grubbsh 12/12/22 9:08 AM documented in this encounter Plan of Treatment Not on file documented as of this encounter Visit Diagnoses Not on filedocumented in this encounter Care Teams Concrete Batch Plant Operator Relationship Specialty Start Date End Date Astrid Grier MD [address] [place] [address] PCP - General Family Medicine 04/06/23 documented as of this encounter
--- OUTSIDE RECORDS SUMMARY | 2024-08-29 14:12 | XMS_ITS | Encounter Summary ---
Author Organization [facility] [place] [address] Care Team Providers Care Refuge Manager Name Role Phone Astrid Grier MD Primary Care Provider Reason for Visit * Reason Comments Specialty Refill Management Encounter Details Date Type Department Care Team (Late st Contact Info) Description 05/08/2023 Specialty [place] [phone] Anastasiia Donaldson Navya Social History Tobacco Use [...] Progress Notes * Anastasiia Donaldson RPH - 05/08/2023 12:22 PM EDT Clinical Management Plan: Refill Specialty [...] 12-24-2020, 08:31 Medication Reconciliation Discrepancies (compared to [facility] med list) No Specialty Pharmacy Refill Questionnaire More data exists 05/08/2023 Refill Questionnaire What is the name of the specialty medication you are refilling? Humira Are you taking any new medications? No Any new medical condition? No Any new allergies? No Any new side effects that are bothersome? No What date will you need this fill by? 05/19/2023 Adherence: Any missed doses? No Patient understands no changes to current drug regimen were made. Anastasiia Donaldson RPH 05/08/23 12:24 PM documented in this encounter Plan of Treatment Not on file documented as of this encounter Visit Diagnoses Not on filedocumented in this encounter Care Teams Refuge Manager Relationship Specialty Start Date End Date Astrid Grier MD [address] [place] [address] PCP - General Family Medicine 04/06/23 documented as of this encounter
--- OUTSIDE RECORDS SUMMARY | 2024-08-29 14:12 | XMS_ITS | Encounter Summary ---
Author Organization [facility] [place] [address] Care Team Providers Care Stoker Erector Name Role Phone Alek Esparza MD Primary Care Provider [phone] Reason for Visit * Reason Comments Specialty Pharmacy Review Adalimumab (Hu maria m) Pen 40mg/0.8mL Encounter Details Date Type Department Care Team ([facility] Contact Info) Description 10/01/2022 Specialty [place] [phone] Shy Ramirez, [facility] Social History Tobacco Use Types [...] encounter Progress Notes * Shy Ramirez - 10/01/2022 10:13 AM EST The - Specialty Pharmacy has completed a benefits investigation for Enco Esteban to review theireligibility to fill at [facility]. Per patient's medication list they are prescribed Adalimumab (Humira) and the medication is currently filled at the [facility]. documented in this encounter Plan of Treatment Not on file documented as of this encounter Visit Diagnoses Not on filedocumented in this encounter Care Teams Stoker Erector Relationship Specialty Start Date End Date Alek Esparza MD [address] [place] [address] PCP - General 09/03/10 04/05/23 documented as of this encounter
--- OUTSIDE RECORDS SUMMARY | 2024-08-29 14:12 | XMS_ITS | Encounter Summary ---
Author Organization [facility] [place] [address] Care Team Providers Care In Store Marketing Representative Name Role Phone Alek Esparza MD Primary Care Provider [phone] Reason for Visit * Reason Comments Medication Management Patient Education Encounter Details Date Type Department Care Team (Late st Contact Info) Description 08/20/2022 Specialty [place] [phone] Shawn Mandel [facility] Social History Tobacco Use Types Packs/Day Years [...] as of this encounter Progress Notes * Shawn Mandel [facility] - 08/20/2022 4:20 PM EST Specialty Pharmacy Initial Consultation; hSawn Mandel [facility] Comprehensive Medication Management (CMM) Enoc Emili Carlito Diagnosis: IA Therapy Start Date: 08/22/22 Contact in person or via telephone: phone Mr. Enoc Esteban is a 62 y.o. (1960) male who was contacted in regard to specialty medication. Spoke with patient regarding humira . A review of the medication therapy was performed. The medication was Filled as scheduled, and all medication related questions and concerns were addressed. The specialty pharmacy staff will follow up with the patient 5-7 days prior to next refill. Is the patient willing to proceed with the Clinical Assessment? Yes Summary and Recommendations: Enoc Esteban was contacted via telephone for a review of Humira for the treatment of inflammatory arthritis. Patient is aware of the prior authorization process and timeline and was given [facility] contact information for any questions. Patient was educated on the Humira labeled black box warnings regarding the risk of serious infections including tuberculosis and malignancies. Discussed other precautions with Humira including anaphylaxis/hypersensitivity and hepatitis B reactivation. Patient denies personal history of demyelinating disease or heart failure and was made aware of these precautions as well. Patient was educated on the importance of infection prevention including best practices for hand hygiene and the annual fluvaccine. Discussed the need to avoid live vaccines during treatment. Dose hold parameters were reviewed including suspected/known infection, prescribed antibiotic therapy, or scheduled surgery. Patient agrees to contact the clinic to review dose hold in these settings. Educated patient on the potential side effects of Humira including injection site reaction, headache, rash, and infections such as URTI/sinusitis. Discussed with patient that it may take 3-4 months to experience the full benefit of Humira. A review of dosing, storage, and administration was completed. Patient was educated on the dosing schedule, 40 mg subcutaneously every 2 weeks. Patient was made aware that Humira must be stored in the refrigerator and remains stable at room temperature for 14 days. Demonstration of injection technique was performed using Humira training kit. Patient was advised on proper site rotation, site sterilization, and allowing the medication to reach room temperature prior to injection. Patient was ableto demonstrate appropriate injection technique and required no remedial counseling. Patient was encouraged to schedule an injection teaching appointment if they prefer to have first injection completed with medical oversight and was directed to view additional online video resources if needed. Patient will be provided with a sharps container and disposal of pens was discussed. Clinic follow-up needed: no Allergies and Drug intolerance: Allergies Allergen Reactions ??? Allopurinol Rash Problem List: Patient Active Problem List Diagnosis Code ??? [...] ischemic attack G45.9 ??? Chronic pain G89.29 Special Dietary or Hydration Requirements: no Medication Reconciliation Discrepancies (compared to [facility] med list) -no longer on hydroxychloriquine Medication List: Current Outpatient Medications Medication Sig Dispense Refill ??? sulfaSALAzine (Azulfidine) [...] TABLET BY MOUTH AT BEDTIME ??? HYDROcodone-acetaminophen ([place]) 10-325 mg Tablet TAKE 2 TABLETS BY [...] nightly as needed. No current facility-administered medications for this visit. Most Recent Vitals: Ht Readings from Last 1 Encounters: 04/03/22 180.3 cm (5' 10.98) Wt Readings from Last 3 Encounters: 04/03/22 116 kg (255 lb 11.2 oz) 07/17/21 114.4 kg (252 lb 3.2 oz) 04/16/21 114.3 kg (252 lb) Temp Readings from Last 3 Encounters: 04/03/22 36.1 ??C (96.9 ??F) (Temporal) 07/17/21 36.4 ??C (97.6 ??F) (Temporal) 04/16/21 36.4 ??C (97.5 ??F) (Temporal) BP Readings from Last 3 Encounters: 04/03/22 109/79 07/17/21 109/76 04/16/21 122/67 Pulse Readings from Last 3 Encounters: 04/03/22 99 07/17/21 66 04/16/21 61 There is no height or weight on file to calculate BMI. Pertinent Lab values: Lab Results Component Value Date NA 137 04/16/2021 K 4.7 04/16/2021 CL 103 04/16/2021 CO2 24 04/16/2021 BUN 16 04/16/2021 CREATININE 1.29 04/16/2021 GLUCOSE 93 04/16/2021 CALCIUM 9.4 04/16/2021 Lab Results Component Value Date ALT 42 04/16/2021 AST 29 04/16/2021 ALKPHOS 53 04/16/2021 BILITOT 0.4 04/16/2021 BILIDIR 0.1 03/31/2016 ALBUMIN 4.2 04/16/2021 PROT 6.8 04/16/2021 Lab Results Component Value Date WBC 7.5 04/16/2021 HGB 13.4 (L) 04/16/2021 HCT 40.1 (L) 04/16/2021 MCV 98.8 (H) 04/16/2021 PLATELET 242 04/16/2021 No results found for: HA1C Immunization History Administered Date(s) Administered ??? Influenza Vaccine w/Preservative, Split 07/25/2013 ??? Influenza Vaccine, Unspecified Formulation 07/08/2013 ??? Moderna Covid-19 (H[employer] Manager 100mcg) Vaccine 01/07/2021, 02/01/2021 ??? Tdap Vaccine 06/21/2012 Assessment and Recommendations: Patient Counseling Patient informed of specialty services: Yes Patient accepted offer to counselor at law: adherence/missed doses, doses and administration, cost of medications/cost implications, lab monitoring/follow up, pharmacy contact information, safe handling, storage, and disposal, possible drug/Rx drug interactions, therapeutic rationale Medication Management Summary Topics discussed: reviewed medication changes since last visit, medication safety precautions education provided, safe handling, storage, and disposal discussed, possible adverse effects and management discussed, lab monitoring and follow-up discussed, cost of medications and cost implications discussed, adherence and missed doses discussed, monitoring medication discussed, recommendations to doctor discussed, reminder to refill or shrimp picker medication discussed, self-monitoring discussed, timing of medications discussed, lifestyle modification education, referral needs discussed Number of adverse drug events identified: 0 Time spent: 16-30 min Treatment Outcomes 08/20/2022 1625 Disease progression: Stable Patient Overall Status: Stable Reviewed in detail with patient: Dose appropriateness based on recommended standard dosing Current medication list including OTC medications Medication and disease problems Allergies Comorbid conditions/ Problem List Past adverse events if any Special needs of the patient including physical and cognitive limitations Goals of therapy and management strategies Warnings, precautions, and contraindications Side effects Drug-drug and drug-food interactions Administration instructions including dose, frequency and method Handling, storage, and disposal Verifying expiration dates on products before use Rotating medication inventory to use oldest product first Relevant lab data Treatments impact on disease Dose appropriateness based on recommended standard dosing schedule, including any variations from FDA approved dosing Patient verbalizes understanding and is able to read-back instructions on self-administration/injection, proper storage, drug stability, importance of adherence and management strategies, side effect avoidance and mitigation strategies, and interruptions in therapy: Yes Patient is aware a licensed pharmacist is available 24 hours a day, 7 days a week to discuss medication-related questions or concerns: Yes Patient verbalizes understanding of the common side effect profile of their medication. The patient is able to call 911 or seek urgent care if signs/symptoms of allergy or harmful adverse reactions occur: Yes Additional care/services needed: No Additional equipment/supplies required: No Patient satisfied with care/services provided: Yes Specialty Assessment: Physical and Cognitive Assessment: Functional limitations identified: No Cognitive limitations identified: No Concern regarding orientation/memory: No Concern with reasoning/judgement: No Is patient a fall risk: No Social Assessment: Does patient have a primary childcare teacher: No Does patient have an emergency contact on file: Yes Does patient need referral to social and political studies professor: No Does patient need referral to advocacy group: No Home Health Assessment: Is the patient in a safe home environment?: Yes Is the patient able to store their medication as directed?: Yes Does the patient have a support network at home?: Yes Reviewed potential home safety hazards with patient: Yes Economic Assessment: Patient is agreeable to medication copay: Yes Actual Copay: $: 3 Days Supply: 28 Welcome Packet and Rights and Responsibilities: Patient provided welcome packet/rights and responsibilities: Yes Specialty Med Adherence Patient Demonstrates Understanding of Importance of Adherence: Yes Educational Information or Adherence Tools Provided: Yes Patient Reported X Missed Doses in the Last Month: 0 Provider-Estimated Medication Adherence Level: 90-100% Therapy Assessment: No flowsheet data found. Current Medication Dosing/Route/Frequency: humira 40mg subq q 14d Appropriate Therapy: Yes Current joints affected: wrist, shoulder, knee, hip, ankle Current pain rating (1-10): 4 Estimated duration of morning joint stiffness: 90 min Estimated number of recent flares: no Recent systemic corticosteroid use: no Patient's Problems/Needs: pain Expected Outcome: less pain Treatment Outcome: Therapy initiated Patient's goals: Patient's specific desired goal: reduce pain in joints Measured by: pain scale Time-frame to meet goal: 6 month On a scale of 1-10, what is the patient's overall confidence level with administering this medication? 10 Monitoring requirements for prescribed medication: tb/hepb/cmp/cbc-d On a scale of 1-10 the patient rates their quality of life: n/a Care Plan Reviewed and Approved by both Pharmacist and Patient: Yes Interventions (if applicable): No Pharmacist follow-up needed: Yes Delivery Method: Delivery Patient understands no changes to current drug regimen were made at the appointment and [facility]summary located at top of note) for provider review and follow up. Shawn Mandel RPH 08/20/22 4:26 PM documented in this encounter Plan of Treatment Not on file documented as of this encounter Visit Diagnoses Not on filedocumented in this encounter Care Teams In Store Marketing Representative Relationship Specialty Start Date End Date Alek Esparza MD [address] [place] [phone] PCP - General 09/03/10 04/05/23 documented as of this encounter
--- OUTSIDE RECORDS SUMMARY | 2024-08-29 14:12 | XMS_ITS | Encounter Summary ---
Author Organization [facility] [place] [address] Care Team Providers Care Clinical Quality Manager Name Role Phone Alek Esparza MD Primary Care Provider [phone] Reason for Visit * Reason Comments Specialty Refill Management Encounter Details Date Type Department Care Team (Late st Contact Info) Description 11/12/2022 Specialty [place] [phone] Argelia Harris [facility] Social History Tobacco Use Types Packs/Day [...] as of this encounter Progress Notes * Argelia Plascencia [facility] - 11/12/2022 12:43 PM EST Clinical Management Plan: Refill Specialty Pharmacy Consultation; Argelia Plascencia [facility] Comprehensive Medication Management (CMM) Enoc Esteban [...] 12-24-2020, 08:31 Medication Reconciliation Discrepancies (compared to [facility] med list) No Specialty Pharmacy Refill Questionnaire Refill Questionnaire 11/12/2022 What is the name of the specialty medication you are refilling? Humira Are you taking any new medications? No Any new medical condition? No Any new allergies? No Any new side effects that are bothersome? No What date will you need this fill by? 11/19/2022 Adherence: Any missed doses? No Patient understands no changes to current drug regimen were made. Argelia [facility] 11/12/22 12:46 PM documented in this encounter Plan of Treatment Not on file documented as of this encounter Visit Diagnoses Not on filedocumented in this encounter Care Teams Clinical Quality Manager Relationship Specialty Start Date End Date Alek Esparza MD [address] [place] [phone] PCP - General 09/03/10 04/05/23 documented as of this encounter
--- OUTSIDE RECORDS SUMMARY | 2024-08-29 14:12 | XMS_ITS | Encounter Summary ---
Author Organization [facility] Address [facility] [place] [address] Care Team Providers Care Hose Seamer Name Role Phone Alek Esparza MD Primary Care Provider [phone] Reason for Visit * Reason Comments Medication Management Medication Refill Encounter Details Date Type Department Care Team (Late st Contact Info) Description 09/10/2022 Specialty [place] [phone] Sanya Roman [facility] Social History Tobacco Use Types Packs/Day Years [...] as of this encounter Progress Notes * Sanya Roman RPH - 09/10/2022 8:55 AM EST Specialty Pharmacy Consultation; Sanya Roman [facility] Comprehensive Medication Management (CMM): Specialty Consult, Opt Out Enoc Jiangayaka Diagnosis: IA Therapy Start Date: 08/26/22 Contact in person or via telephone: phone Mr. Enoc Esteban is a 62 y.o. (1960) male who was contacted in regard to specialty medication. Spoke with patient regarding humira. A review of the medication therapy was performed. The medication was refilled as scheduled, and all medication related questions and concerns were addressed. [facility] will follow up with the patient 5-7 days prior to next refill. Is the patient willing to proceed with the Clinical Assessment? No Summary and Recommendations: Today I spoke with Enoc Emili Esteban about refilling humira and for a 1month follow up consultation. The medication was refilled but it's too soon via the insurance and will be sent tomorrow. Enoc said there have not been any changes in his health and declined the consults. He said he has no questionsor concerns and will contact us if any arise. Economic Assessment: Patient is agreeable to medication copay: Yes Copay Amount: $3 (projected) Day Supply: 28 Date Needed: 09/23/22 Therapy Assessment: Appropriate Therapy: Yes Current Medication Dosing/Route/Frequency: Humira 40mg subq every 14 days Additional equipment/supplies required: no Care Plan Reviewed [...] ischemic attack G45.9 ??? Chronic pain G89.29 Medications Reviewed: Yes Medications reconciled: No Allergies Reviewed:Yes Allergies reconciled: No Pharmacist follow-up needed: Yes Informed patient of specialty pharmacy services: Yes Welcome Packet and Rights and Responsibilities: Patient provided welcome packet/rights and responsibilities: Yes -Patient is aware a licensed pharmacist is [...] note) for provider review and follow up. Sanya Roman RPH 09/10/22 8:58 AM documented in this encounter Plan of Treatment Not on file documented as of this encounter Visit Diagnoses Not on filedocumented in this encounter Care Teams Hose Seamer Relationship Specialty Start Date End Date Alek Esparza MD [address] [place] [phone] PCP - General 09/03/10 04/05/23 documented as of this encounter
--- OUTSIDE RECORDS SUMMARY | 2024-08-29 14:13 | XMS_ITS | Encounter Summary ---
Author Organization [facility] Address [facility] [place] [address] Care Team Providers Care Principal Military Analyst Name Role Phone Alek Esparza MD Primary Care Provider [phone] Reason for Visit * Reason Comments Medication Refill Encounter Details Date Type Department Care Team (Late st Contact Info) Description 03/07/2021 [place] [phone] Baldomero Neal PA [address] [address] Arthralgia, unspecified joint Social History Tobacco Use [...] this encounter Visit Diagnoses Diagnosis Arthralgia, unspecified joint documented in this encounter Care Teams Principal Military Analyst Relationship Specialty Start Date End Date Alek Esparza MD [address] [place] [phone] PCP - General 09/03/10 04/05/23 documented as of this encounter
--- OUTSIDE RECORDS SUMMARY | 2024-08-29 14:13 | XMS_ITS | Encounter Summary ---
Author Organization [facility] Address [facility] [place] [address] Care Team Providers Care Plasma Processing Technician Name Role Phone Alek Esparza MD Primary Care Provider [phone] Encounter Details Date Type Department Care Team (Late st Contact Info) Description 04/16/2021 2:00 PM EDT Office [place] [phone] Baldomero Neal PA [address] [place] [address] Inflammatory arthritis (Primary Dx); Arthralgia, unspecified joint; Medication monitoring encounter; Tophaceous gout Social History Tobacco Use Types Packs/Day Years [...] Sign Reading Time Taken Comments Blood Pressure 122/67 04/16/2021 1:58 PM EDT Pulse 61 04/16/2021 1:58 PM EDT Temperature 36.4 ??C (97.5 ??F) 04/16/2021 1:58 PM ED T Respiratory Rate - - Oxygen Saturation 100% 04/16/2021 1:58 PM EDT Inhaled Oxygen Concentration - - Weight 114.3 kg (252 lb) 04/16/2021 1:58 PM EDT Height 180.3 cm (5' 11) 04/16/2021 1:58 PM EDT Body Mass Index 35.15 04/16/2021 1:58 PM EDT documented in this encounter Patient Instructions * Patient Instructions* Baldomero Neal PA - 04/16/2021 2:00 PM EDT Labs today Increase sss to 1000mg bid , pending labs Follow up 2-3 months documented in this encounter Progress Notes * Baldomero Neal PA - 04/16/2021 2:00 PM EDTSummary: inflammatory Arthritis Rheumatology Outpatient Note Chart review conducted prior [...] male who presents today for evaluation of inflammatory arthritis with a history of Gout. Impression/Recommendations : 02/05/21 Enoc Esteban is a 61 y.o. male who presents today with inflammatory arthritis with a history of gout patient with arthralgias that responded to Medrol Dosepak. After review of his options he electedfor a trial of sulfasalazine 500 mg twice daily side effects reviewed expectations discussed. Afterinitiating treatment for 3 weeks we will repeat laboratory studies at near his home. Any additional changes pending review of those labs and his clinical course the possibility of optimizing his therapy in 4 weeks discussed follow-up in clinic in 2 months sooner for any problems patient in agreement. Interval History: Patient continues on a trial of SSS 500 mg bid thus far without complication, however he reports that his arthralgias are unimproved thus far. He still has some ongoing tenderness in his hands, wrists and sometimes in the lower extremities. There has been no skin rashes. He denies any red, warm, swollen joints. Review of Systems Constitutional: Negative for diaphoresis, absenteeism, fever and weight loss. Respiratory: Negative for cough, hemoptysis, orthopnea and pleuritic pain. Gastrointestinal: Negative for vomiting, steatorrhea and trouble swallowing. HENT: Negative. Psychiatric/Behavioral: Negative for social aversion. Hematologic/Lymphatic: Negative. Allergic/Immunologic: Negative for recurrent infections and immunocompromised state. Musculoskeletal: Negative for myalgias, joint swelling and fracture. Endocrine: Negative for polydipsia, polyphagia, polyuria and Cushingoid appearance. Cardiovascular: Negative for near-syncope and syncope. Neurological: Negative for vertigo. Skin: Negative for dry skin, urticaria, blister, photosensitivity and erythema. Allergies Allergies Allergen Reactions ??? Allopurinol Rash Medications Current Outpatient Medications on File Prior to Visit Medication Sig Dispense Refill ??? sulfaSALAzine (Azulfidine) 500 mg Tablet TAKE ONE TABLET BY MOUTH TWICE A DAY 60 tablet 0 ??? hydrOXYzine (ATARAX) 50 mg Tablet TAKE ONE TABLET BY MOUTH EVERY DAY AT DINNER ??? traZODone (Desyrel) 50 mg Tablet TAKE ONE TABLET BY MOUTH AT BEDTIME ??? HYDROcodone-acetaminophen ([place]) 10-325 mg Tablet TAKE 2 TABLETS BY [...] Take 1 tablet by mouth daily. ??? predniSONE (Deltasone) 10 mg Tablet as needed. ??? febuxostat (Uloric) 40 mg Tablet Take [...] PHALANGES performed by Rohan Duarte MD at [facility] ??? PRO LAMINOTOMY, LUMBAR DISK, 1 INTRSP N/A 10/25/2019 LAMINOTOMY, DECOMPRESSION, FORAMINOTOMY, LUMBAR (WRVU 13.18) performed by Denzel Madison MD at [facility] OR ??? PRO MICROSURG TECHNIQUES, REQ OPER MICROSCOPE N/A 10/25/2019 MICROSCOPE USE (WRVU 3.46) performed by Denzel Madison MD at [facility] OR ??? PRO REMOVAL OF ELBOW BURSA Right 10/16/2014 EXCISION OF OLECRANON BURSA performed by Anupama Howard MD at [facility] ??? PRO TOTAL HIP ARTHROPLASTY Left 04/12/2020 TOTAL HIP ARTHROPLASTY, ANTERIOR APPROACH (WRVU 20.72) performed by Isidoro Lay MD at [facility] OR Physical Examination: BP 122/67 Pulse 61 Temp 36.4 ??C (97.5 ??F) (Temporal) Ht 180.3 cm (5' 11) Wt 114.3 kg (252 lb) SpO2 100% BMI 35.15 kg/m?? Physical Exam Constitutional: General: He is not [...] and oriented to person, place, and time. Motor: No weakness. Psychiatric: Mood and Affect: Mood normal. Behavior: Behavior normal. Thought Content: Thought content normal. Judgment: Judgment normal. Impression/Recommendations : Enoc Esteban is a 61 y.o. male who presents today with a history of Gout and inflammatory arthritis on a trial of [id number] mg bid thus far without significant relief of sx. After a review ofhis options patient elected to increase SSS to 1,000 mg bid, repeat labs in 4 weeks. Follow up 2 months sooner if required patient in agreement. documented in this encounter Plan of Treatment Not on file documented as of this encounter Procedures Procedure Name Priority Date/Time Associated Diagnosis Comments HC C-REACTIVE PROTEIN Routine 04/16/2021 2:49 PM EDT Medication monitoring encounter Inflammatory arthritis HEMOGRAM Routine 04/16/2021 2:49 PM EDT Medication monitoring encounter Inflammatory arthritis DIFFERENTIAL, AUTOMATED Routine 04/16/2021 2:49 PM EDT Medication monitoring encounter Inflammatory arthritis HC ESR-SEDIMENTATION RATE, BLOOD Routine 04/16/2021 2:49 PM EDT Medication monitoring encounter Inflammatory arthritis HC CBC,PLT & AUTO DIFF Routine 2:49 PM EDT Medication monitoring encounter Inflammatory arthritis COMPREHENSIVE METABOLIC PANEL Routine 04/16/2021 2:49 PM EDT Medication monitoring encounter Inflammatory arthritis documented in this encounter Results * (ABNORMAL) Differential, Automated (04/16/2021 2:49 PM EDT) Neutrophil % 37.2 % [facility] Neutrophil Absolute 2.78 1.70 - 6.10 x10(3)/mc L [facility] Lymph % 47.3 % [facility] Lymphocytes Abs 3.5(H) 0.9 - 3.2 x10(3)/mc L [facility] Monocyte % 11.0 % [facility] Monocyte Abs 0.8 0.3 - 0.9 x10(3)/mc L [facility] Eos % 3.3 % [facility] Eosinophils Abs 0.2 0.0 - 0.4 x10(3)/mc L [facility] Basophil % 1.1 % [facility] Baso Absolute 0.1 0.0 - 0.1 x10(3)/ L [facility] Immature Gran % 0.10 % [facility] Comment: Immature granulocytes(IG's)percentage and absolute count will include metamyelocytes, myelocytes, and promyelocytes. Blood smears from CBCs yielding IG's will be scanned manually for concordance. If this scan disagrees with the automated IG or if promyelocytes are noted, a manual differential will be performed. Immature Gran Absolute 0.01 0.00 - 0.04 x10(3)/ L [facility] Blood 04/16/2021 2:49 PM EDT 04/16/2021 3:08 PM EDT Narrative Resulting Agency Comment Spec In Lab Baldomero COSME HEMATOLOGY ORDERABL ES [facility] [place] [address] * (ABNORMAL) Hemogram (04/16/2021 2:49 PM EDT) White Blood Cell 7.5 4.0 - 9.5 x10(3)/[facility] Red Blood Cell 4.06(L) 4.58 - 5.54 x10(6)/ L [facility] Hemoglobin 13.4(L) 13.7 - 16.5 gm/dL [facility] Hematocrit 40.1(L) 40.5 - 48.5 % [facility] Mean Cell Volume 98.8(H) 82.9 - 93.1 fL [facility] Mean Cell Hemoglobin 33.0(H) 27.5 - 32.1 pg [facility] Mean Cell Hemoglobin Concentration 33.4 32.0 - 35.7 gm/dL [facility] Platelet 242 145 - 357 x10(3)/[facility] RDW Standard Deviation 45.4(H) 36.0 - 45.0 fL [facility] RDW coefficient of variation 12.4 11.4 - 13.8 % [facility] Mean Platelet Volume 9.9 7.6 - 12.9 fL [facility] NRBC% auto 0.0 % [facility] NRBC Absolute 0.000 0.000 - 0.000 x10(3)/mc L [facility] Blood 04/16/2021 2:49 PM EDT 04/16/2021 3:08 PM EDT Narrative Resulting Agency Comment Spec In Lab Baldomero COSME HEMATOLOGY ORDERABL ES Performing Organization Address [facility] Co de Phone Number [facility] [place] [address] * CRP, acute inflammation (04/16/2021 2:49 PM EDT) C-Reactive Protein <3.0 <=4.9 mg/L [facility] Blood 04/16/2021 2:49 PM EDT 04/16/2021 3:08 PM EDT Narrative Resulting Agency Comment Spec In Lab Teofilo Cotton MD CHEMISTRY ORDERABLES Performing Organization Address [facility] Co de Phone Number [facility] [place] [address] * Sedimentation rate (04/16/2021 2:49 PM EDT) Sedimentation Rate Automated 5 2 - 37 mm/hr [facility] Comment: Effective September 21, 2019 new capillary photometric technology has resulted in a change in reference ranges. It is recommended that each ESR result be reviewed with its own age appropriate reference range. Blood 04/16/2021 2:49 PM EDT 04/16/2021 3:08 PM EDT Narrative Resulting Agency Comment Spec In Lab Teofilo Cotton MD HEMATOLOGY ORDERABLE S Performing Organization Address [facility] Co de Phone Number [facility] [place] [address] * Comprehensive metabolic panel (non-fasting) (04/16/2021 2:49 PM EDT) Glucose 93 65 - 199 mg/dL [facility] Comment:Diabetes: >=200 mg/d L plus symptoms Blood Urea Nitrogen 16 10 - 20 mg/dL [facility] Creatinine 1.29 0.80 - 1.50 mg/dL [facility] Sodium 137 135 - 145 mmol/L [facility] Potassium 4.7 3.5 - 5.0 mmol/L [facility] Comment: Please note: ??Patients with WBC >100,000 may have falsely elevated Potassium levels. ??For accurate Potassium quantification in these patients send serum separator tube (gold top) for subsequent determinations. ??Contact the Clinical Chemistry Laboratory if there are any questions. Chloride 103 98 - 107 mmol/L [facility] Carbon Dioxide 24 22 - 31 mmol/L [facility] Anion Gap 10 5 - 15 mmol/L [facility] Calcium 9.4 8.5 - 10.5 mg/dL [facility] Protein, Total 6.8 6.1 - 8.0 gm/dL [facility] Albumin 4.2 3.2 - 5.2 gm/dL [facility] Aspartate Aminotransferase 29 0 - 39 unit/L [facility] Alanine Aminotransferase 42 0 - 55 unit/L [facility] Alkaline Phosphatase 53 40 - 130 unit/L [facility] Bilirubin, Total 0.4 0.2 - 1.3 mg/dL [facility] Est Glomerular Filtration Rate 60 >=60 mL/min/1. 73 m?? [facility] Comment: This patient? s estimated glomerular filtration rate (eGFR) is between 60 mL/min/1.73 m2 (patients with less muscle mass per kg body weight) and 70 mL/min/1.73 m2 (patients with more muscle mass per kg body weight) as determined by the CKD-EPI equation. Assessment of eGFR is not appropriate when creatinine concentrations are rapidly changing. For clinical decisions where creatinine clearance will affect therapy, a 24-hour urine creatinine clearance may be advised. Assignment of CKD stage 1 - 5 for patients with an eGFR near the transition point between stages may be based on clinical assessment of muscle mass and symptoms in addition to eGFR. 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
--- OUTSIDE RECORDS SUMMARY | 2024-08-29 14:13 | XMS_ITS | Encounter Summary ---
[facility] [address] Care Team Providers Care Chef & Owner Name Role Phone Alek Esparza MD Primary Care Provider Reason for Visit * Reason Onset Date Comments Prior Authorization 06/29/2020 Encounter Details Date Type Department Care Team ([facility] st Contact Info) Description 06/29/2020 [place]phone [place] [phone] Radha Espinoza Prior Authorization Social History Tobacco Use Types Packs/Day Years [...] encounter Miscellaneous Notes * Telephone Encounter - Radha Espinoza - 08/17/2020 1:12 PM EST Checked in with insurance stated they never received. Resubmitting via [facility] * Telephone Encounter - Radha Espinoza - 06/29/2020 10:04 AM EDT Medication Prior Authorization Yury Medication name/dose/directions: Uloric 40mg - once daily Rationale for request: Gout Health plan: [place] ([facility]) Authorizing admissions representative name: Sydney Sent to health plan on: 9/18/20 Health plan decision: Approved Quantity approved: Authorization number: Start date: End date: 06/27/21 documented in this encounter Plan of Treatment Not on file documented as of this encounter Visit Diagnoses Not on filedocumented in this encounter Care Teams Chef & Owner Relationship Specialty Start Date End Date Alek Esparza MD [address] [place] [phone] PCP - General 09/03/10 04/05/23 documented as of this encounter
--- OUTSIDE RECORDS SUMMARY | 2024-08-29 14:13 | XMS_ITS | Encounter Summary ---
[place] [address] Care Team Providers Care Power Plant Assistant Name Role Phone Alek Esparza MD Primary Care Provider [phone] Reason for Visit * Reason Onset Date Comments Labs Only 03/06/2021 Encounter Details Date Type Department Care Team ([facility] st Contact Info) Description 03/06/2021 Telephone [place] [phone] Avery Perry, RN Labs Only Social History Tobacco Use [...] encounter Miscellaneous Notes * Telephone Encounter - Avery Perry RN - 03/06/2021 1:41 PM EDT Message routed to this RN is patient calls to inquire if labs to be done. Called patient, unavailable, left vm with call back number. documented in this encounter Plan of Treatment Not on file documented as of this encounter Visit Diagnoses Not on filedocumented in this encounter Care Teams Power Plant Assistant Relationship Specialty Start Date End Date Alek Esparza MD [address] [place] [phone] PCP - General 09/03/10 04/05/23 documented as of this encounter
--- OUTSIDE RECORDS SUMMARY | 2024-08-29 14:13 | XMS_ITS | Encounter Summary ---
Author Organization [facility] [place] [address] Care Team Providers Care Process Excellence Manager Name Role Phone Alek Esparza MD Primary Care Provider [phone] Reason for Visit * Reason Comments Follow-up Xiaflex injection ri ght ring and small finger * High Dollar Medication (Routine) - Closed Specialty Diagnoses / Procedures Referred By Debra sands Referred To Contact Plastic Surgery Diagnoses Dupuytren's contracture Procedures Xiaflex Authorization Request (IN CLINIC) Randell Stahl MD [facility] [place] [address] [facility] [address] [place] [address] Referral ID Status Reason Start Date Expiration Date V isits Requested Visits Authorized [id number] Closed Consult, Test & Treat 10/29/2020 10/29/2021 1 1 Encounter Details Date Type Department Care Team (Late st Contact Info) Description 11/08/2020 2:00 PM EST Office [place] [phone] Randell Stahl MD [facility] [place] [address] Dupuytren's contracture Social History Tobacco Use Types Packs/Day Years [...] as of this encounter Progress Notes * Selena Gold Shahid - 11/08/2020 2:00 PM EST Plastic Surgery Hand Follow Up Note Procedure: Randell Stahl M.D. CC: Dupuytren's Contracture HPI: Patient presents in Follow-Up, for Xiaflex injection, right ring finger. Examination: There were no vitals taken for this visit. No acute distress Right ring finger: Lot #: [id number] Exp: March 2022 S/N: [id number] Procedure: after informed consent, under sterile conditions xiaflex 0.9mg vial mixed with 0.39cc sterile dilutent was instilled into the right ring finger Dupuytren's cord over several injection points. Patient tolerated well, no immediate complication. Impression: Enoc Esteban is a 60 y.o. male patient with Dupuytren's contracture, primarily here for xiaflex injection, right ring finger Plan: 1. Proceed with xiaflex injection, right ring finger. 2. Follow up tomorrow for manipulation. documented in this encounter Plan of Treatment Not on file documented as of this encounter Visit Diagnoses Diagnosis Dupuytren's contracture Contracture of palmar fascia documented in this encounter Care Teams Process Excellence Manager Relationship Specialty Start Date End Date Alek Esparza MD [address] [place] [phone] PCP - General 09/03/10 04/05/23 documented as of this encounter
--- OUTSIDE RECORDS SUMMARY | 2024-08-29 14:13 | XMS_ITS | Encounter Summary ---
Author Organization [facility] [place] [address] Care Team Providers Care Autism Teacher Name Role Phone Alek Esparza MD Primary Care Provider [phone] Reason for Referral * High Dollar Medication (Routine) - Closed Specialty Diagnoses / Procedures Referred By Contac t Referred To Contact Plastic Surgery Diagnoses Dupuytren's contracture Procedures Xiaflex Authorization Request (IN CLINIC) Randell Matamoros MD [facility] [place] [address] [facility] [address] [place] [phone] Referral ID Status Reason Start Date Expiration Date V isits Requested Visits Authorized [id number] Closed Consult, Test & Treat 10/29/2020 10/29/2021 1 1 Reason for Visit * Reason Comments Advice Only dupuytrens contractu re of both ring fingers * Consultation (Routine) - Closed Specialty Diagnoses / Procedures Referred By Contac t Referred To Contact Plastic Surgery Diagnoses Dupuytrens Contracture Procedures Dupuytrens Alek Esparza MD [address] [place] [phone] [facility] [address] [place] [phone] Referral ID Status Reason Start Date Expiration Date Visits Re quested Visits Authorized [id number] Closed 10/19/2020 10/19/2021 1 1 Encounter Details Date Type Department Care Team (Late st Contact Info) Description 10/29/2020 9:00 AM EST Office [place] [phone] Randell Matamoros MD [facility] [place] [address] Dupuytren's contracture Social History Tobacco Use Types [...] of this encounter Progress Notes * Marti Barroso H - 10/29/2020 9:00 AM EST Plastic Surgery Hand Consultation Note Procedure: Randell Matamoros M.D. I have been asked to see the patient by Alek Esparza M.D. CC: Dupuytren's Contracture HPI: Enoc Esteban is a 60 y.o. male who presents to clinic with bilateral contractures of his ringfingers. He reports that his contractures have been bothersome over the last few years, steadily getting worse. He has difficulty with placing his hands flat. He denies being diabetic,does have high blood pressure which he manages with medication. He does have a history of atrial fibrillation which he takes elquis for. Past Medical History: Diagnosis Date ??? Antiplatelet or antithrombotic long-term use On Eliquis for afib ??? Asthma Lafleur's Lung. Combivent inhaler prn. ??? Bowel disease Just got over c-diff. Treated and resolved per MD. ??? Chronic pain Back and LLE. ??? Claudication After standing for a long time. ??? Fracture of left small finger, proximal, closed 02/07/2013 ??? History of elbow surgery, right Dr. Howard, 10/16/2014 exc prox ulna entesophyte 11/24/2014 ??? Irregular heart beat Afib. Takes Eliquis ??? 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 Moderate asthma ??? Pain in right elbow 06/13/2014 ??? Syncope Gets light-headed occasionally. No falls, just needs to sit down until resolved. Past Surgical History: Procedure Laterality Date ??? PRO CLOSED TREAT TOE FX 02/08/2013 CLOSED TREATMENT FX PHALANX OR PHALANGES performed by Rohan Duarte MD at [facility] ??? PRO LAMINOTOMY, LUMBAR DISK, 1 INTRSP N/A 10/25/2019 LAMINOTOMY, DECOMPRESSION, FORAMINOTOMY, LUMBAR (WRVU 13.18) [facility] ??? PRO MICROSURG TECHNIQUES, REQ OPER MICROSCOPE N/A 10/25/2019 MICROSCOPE USE (WRVU 3.46) performed by Denzel Madison MD at [facility] MAIN OR ??? PRO REMOVAL OF ELBOW BURSA Right 10/16/2014 EXCISION OF OLECRANON BURSA performed by Anupama Howard MD at [facility] ??? PRO TOTAL HIP ARTHROPLASTY Left 04/12/2020 TOTAL HIP ARTHROPLASTY, ANTERIOR APPROACH (WRVU 20.72) performed by Isidoro Lay MD at [facility] MAIN OR Social History Socioeconomic History ??? Marital status: Single Spouse name: Not on file ??? Number of children: Not on file ??? Years of education: Not on file ??? Highest education level: Not on file Occupational History ??? Not on file Social Needs ??? Financial resource strain: Not on file ??? Food insecurity Worry: Not on file Inability: Not on file ??? Transportation needs Medical: Not on file Non-medical: Not on file Tobacco Use ??? Smoking status: Never Smoker ??? Smokeless tobacco: Never Used Substance and Sexual Activity ??? Alcohol use: Yes Alcohol/week: 16.0 - 23.0 standard drinks Types: 14 - 21 Cans of beer, 2 Standard drinks or equivalent per week Comment: 2-3 drinks daily ??? Drug use: Yes Frequency: 7.0 times per week Types: Marijuana Comment: non medical.. uses for sleep / pain ??? Sexual activity: Not on file Lifestyle ??? Physical activity Days per week: Not on file Minutes per session: Not on file ??? Stress: Not on file Relationships ??? Social connections Talks on phone: Not on file Gets together: Not on file Attends latter-day service: Not on file Active member of club or organization: Not on file Attends meetings of clubs or organizations: Not on file Relationship status: Not on file ??? Intimate partner violence Fear of current or ex partner: Not on file Emotionally abused: Not on file Physically abused: Not on file Forced sexual activity: Not on file Other Topics Concern ??? Not on file Social History Narrative ??? Not on file Allergies Allergen Reactions ??? Allopurinol Rash Current Outpatient Medications on File Prior to Visit Medication Sig Dispense Refill ??? HYDROcodone-acetaminophen ([place]) 10-325 mg Tablet TAKE 2 TABLETS BY MOUTH 3 TIMES DAILY NEEDED FOR 28 DAYS ??? acetaminophen (Tylenol) 500 mg Tablet Take 2 tablets by mouth every 8 hours. Take as directed around the clock for ten days after your surgery. After that you can take Tylenol as needed per package insert. ??? oxyCODONE (Roxicodone) 5 mg Tablet Take 1 tablet by mouth every 4 hours as needed for Pain. Take the smallest dose possible to control your pain. (Patient not taking: Reported on 05/09/2020) 70 tablet 0 ??? omeprazole (PriLOSEC OTC) 20 mg Tablet, Delayed Release (E.C.) Take 1 tablet by mouth daily. (Patient not taking: Reported on 05/09/2020) ??? predniSONE (Deltasone) 10 mg Tablet TAKE THREE TABLETS BY MOUTH EVERY DAY FOR 3 DAYS THEN TAKE TWO TABLETS BY MOUTH EVERY DAY FOR 3 DAYS THEN TAKE ONE TABLET BY MOUTH EVERY DAY ??? ketoconazole (NIZORAL) 2 % Cream APPLY TO THE AFFECTED AREA S TOPICALLY EVERY DAY DIRECTED ??? cyclobenzaprine (Flexeril) 10 mg Tablet TAKE ONE TABLET BY MOUTH THREE TIMES A DAY DIRECTED ??? febuxostat (Uloric) 40 mg Tablet Take [...] by mouth daily. 90 tablet 3 ??? gabapentin (NEURONTIN) 100 mg Capsule Take 1 capsule three times daily x7 days, then take 2 capsules three times daily x7 days, then take 3 capsules three times daily (Patient taking differently:Take 300 mg by mouth every evening. Take 1 capsule three times daily x7 days, then take 2 capsules three times daily x7 days, then take 3 capsules three times daily) 90 capsule 12 ??? VIAGRA 100 mg Tablet TAKE 1 TABLET BY MOUTH DAILY NEEDED MAX OF 1 TABLET IN 24 HOURS 12 ??? losartan (COZAAR) 50 mg Tablet Take 1 tablet by mouth daily. 30 tablet 5 ??? zolpidem (AMBIEN) 10 mg tablet Take 10 mg by mouth nightly as needed. No current facility-administered medications on file prior to visit. Examination: There were no vitals taken for this visit. No acute distress Ring finger contractures bilaterally at the MPJ, 40 degree limitation right ring finger and 40 leftring finger as well. Non tender. Single cord in both hands. Impression: Enoc Esteban is a 60 y.o. male patient patient with Dupuytren's contracture bilaterally, ring fingers. We discussed multiple treatment options including xiaflex injection and surgical excision of the cords. Xiaflex is an in office treatment that involves two back to back clinic visits.During the first visit, the contracture is injected with the Xiaflex medication. The medication works over the next 24 hours and the following day manipulation is performed to release the contracture. Risks of Xiaflex include but are not limited to tendon rupture and skin tearing during manipulation. Other treatment options include surgical excision of the entire palmar fascia cord but risks include bleeding, scarring, and infection. Recurrence rates however are lower for surgical excision. Based on their degree of contracture, I would recommend proceed with xiaflex injection. Plan: 1. Proceed with xiaflex injection, right hand, next day release. 2. Order for the medication has been ordered and e mail sent to [facility]. 3. Follow up next day for manipulation. I, Marti Barroso, have performed the documentation for this encounter in the presence of and acting as a scribe for RANDELL MATAMOROS MD. documented in this encounter Plan of Treatment Not on file documented as of this encounter Visit Diagnoses Diagnosis Dupuytren's contracture Contracture of palmar fascia documented in this encounter Care Teams Autism Teacher Relationship Specialty Start Date End Date Alek Esparza MD [address] [place] [phone] PCP - General 09/03/10 04/05/23 documented as of this encounter
--- OUTSIDE RECORDS SUMMARY | 2024-08-29 14:13 | XMS_ITS | Encounter Summary ---
Author Organization [facility] [place] [address] Care Team Providers Care Public Defender Name Role Phone Alek Esparza MD Primary Care Provider [phone] Reason for Visit * Auth/Cert Specialty Diagnoses / Procedures Referred By Contac t Referred To Contact Diagnoses 724.2 (ICD-9-CM) - M54.5 (ICD-10-CM) - Low back pain, non-specific 721.3 (ICD-9-CM) - M47.816 (ICD-10-CM) - Lumbar spondylosis Procedures PRO INJECTION PV FACET JOINT LUMBAR/SACRAL SINGLE LEVEL PRO INJECTION PV FACET JOINT LUMBAR/SACRAL SECOND LEVEL PRO INJ PARAVERTEBRAL FACET JT W/IMAGE GUID, LUMBAR/SACRAL, 3RD OR ADDL LEVEL INJECTION, FACET JOINT, W\FLUORO, LUMBAR, SINGLE (WRVU 1.52) INJECTION, FACET JOINT, W\FLUORO, LUMBAR, 2ND LEVEL (WRVU 1) INJECTION, FACET JOINT, W\FLUORO, LUMBAR, 3RD LEVEL (WRVU 1) Referral ID Status Reason Start Date Expiration Date Visits Re quested Visits Authorized [id number] 1 1 Encounter Details Date Type Department Care Team (Latest Contact Info) Description 04/02/2021 10:00 AM EDT - 04/02/2021 11:28 AM EDT Hospital [place] [address] Imer Monet MD [facility] [place] [address] Spondylosis of lumbar region without myelopathy or radiculopathy; Pain Discharge Disposition: Home Social History Tobacco Use [...] Sign Reading Time Taken Comments Blood Pressure 134/84 04/02/2021 11:10 AM EDT Pulse 50 04/02/2021 10:37 AM EDT Temperature - - Respiratory Rate 18 04/02/2021 10:37 AM EDT Oxygen Saturation 99% 04/02/2021 11:10 AM EDT Inhaled Oxygen Concentration - - Weight 108.9 kg (240 lb) 04/02/2021 10:37 AM EDT Height 180.3 cm (5' 11) 04/02/2021 10:37 AM EDT Body Mass Index 33.47 04/02/2021 10:37 AM EDT documented in this encounter Discharge Instructions * Discharge Instructions* Mynor Butterfield - 04/02/2021 11:24 AM EDT Pain Management Center Discharge Instructions: You were seen today by Surgeon(s): Imer Monet MD Shah, MD Julian Ritter, Quyen Lin MD The following was performed: Procedure(s) (LRB): INJECTION, FACET JOINT, W\FLUORO, LUMBAR, SINGLE (WRVU 1.52) (Bilateral) INJECTION, FACET JOINT, W\FLUORO, LUMBAR, 2ND LEVEL (WRVU 1) (Bilateral) INJECTION, FACET JOINT, W\FLUORO, LUMBAR, 3RD LEVEL (WRVU 1) (Bilateral) It is normal that the injection site will be sore for up to 48 hours. [x] You may also experience mild stiffness in the joint near the injection site. You may resume your normal activities: tomorrow. You may shower today. DO NOT tub bathe, use whirlpools, hot tubs or pool therapy for 2 days. RemoveBand-Aid(s) later today/tomorrow. Do not drive until tomorrow. Use caution walking/climbing stairs as you may be unsteady on your feet. You may use your usual medications, including pain medications, as directed, unless otherwise instructed. You may use an ice pack as needed for the first 24 hours, on for 20 minutes then off for 20 minutes. Do not apply heat today. Attempt to empty your bladder 4-6 hours after your procedure. {CHECK BOX SELECTION:83366} If you have diabetes, monitor your blood sugars frequently. If your blood sugar increases and is of concern, contact your Primary Care Provider. You received the following medications: Medications Given During Procedure None During regular business hours, please phone the Pain Management Center at with any questions or if the following or other troubling symptoms develop: 1) Prolonged dizziness or weakness (more than 1 day). 2) Localized swelling, redness or drainage at the injection site(s). 3) Temperature of 101 degrees that lasts for more than 4 hours. After 5 PM or on weekends, call and ask for Pain Clinic provider on-call. If you are unable to reach the Pain Management Center and have a complication, please call your Primary Care Provider or proceed to your local emergency department. Mynor Butterfield Special instructions Pain Management Center Post -Procedure Pain Log Patient: Enoc Esteban [id number] documented in this encounter Medications at Time of Discharge Medication Sig Dispensed Refills Start Date End Date traZODone (Desyrel) 50 mg Tablet TAKE ONE TABLET BY MOUTH AT BEDTIME 10/13/2020 HYDROcodone-acetaminoph en ([place]) 10-325 mg Tablet TAKE 2 TABLETS BY [...] 10 mg by mouth nightly as needed. sulfaSALAzine (Azulfidine) 500 mg TabletIndications:Arthr algia, unspecified joint TAKE ONE TABLET BY MOUTH TWICE A DAY 60 tablet 03/09/2021 04/16/2021 hydrOXYzine (ATARAX) 50 mg Tablet TAKE ONE TABLET BY MOUTH EVERY DAY AT DINNER 10/13/2020 04/19/2024 acetaminophen (Tylenol) 500 mg Tablet Take 2 tablets by mouth every 8 hours. Take as directed around the clock for ten days after your surgery. After that you can take Tylenol as needed per package insert. 04/13/2020 04/19/2024 omeprazole (PriLOSEC OTC) 20 mg Tablet, Delayed Release (E.C.) Take 1 tablet by mouth daily. 04/13/2020 04/03/2022 predniSONE (Deltasone) 10 mg Tablet as needed. 12/22/2019 07/17/2021 ketoconazole (NIZORAL) 2 % Cream APPLY TO THE AFFECTED AREA S TOPICALLY EVERY DAY DIRECTED 02/23/2020 04/08/2021 cyclobenzaprine (Flexeril) 10 mg Tablet TAKE ONE TABLET BY MOUTH THREE TIMES A DAY DIRECTED 12/23/2019 04/08/2021 ELIQUIS 5 mg Tablet Resume 10 days after surgery. 6 11/04/2019 04/21/2024 documented as of this encounter H&P Notes * Stone Khoury MD - 04/02/2021 10:52 AM EDT Patient Name: Enoc Esteban Patient Age: 61 y.o. Birthdate: 1960 Admit date: 04/02/2021 Attending Physician: Imer Monet MD PREPROCEDURE HISTORY AND PHYSICAL Date of Visit: April 02, 2021 Chief Complaint: Low back pain HPI: Subjective Enoc Esteban is a 61 y.o. male who presents today for lumbar medial branch block bilateral L3, L4,L5-DR referred by Dr Murphy (spine). The history is obtained from the patient, and I have reviewed medical records provided by the referring physician and located in the electronic medical record to fill in gaps in the patient's recollection of events, treatments and outcomes. LOCATION: Lumbar spine PAIN LEVEL KEMPS 4 PAST MEDICAL HISTORY: Past Medical History: Diagnosis Date ??? Antiplatelet [...] Irregular heart beat Afib. Takes Eliquis ??? shelter current use of opiate analgesic Dilaudid for back pain ??? Moderate asthma ??? Pain in right elbow 06/13/2014 ??? Syncope Gets light-headed occasionally. No falls, just needs to sit down until resolved. PAST SURGICAL HISTORY: Past Surgical History: Procedure Laterality Date ??? PRO CLOSED TREAT TOE FX 02/08/2013 CLOSED TREATMENT FX PHALANX OR PHALANGES performed by Rohan Duarte MD at [facility] ??? PRO LAMINOTOMY, LUMBAR DISK, 1 INTRSP N/A 10/25/2019 LAMINOTOMY, DECOMPRESSION, FORAMINOTOMY, LUMBAR (WRVU 13.18) performed by Denzel Madison MD at [facility] OR ??? PRO MICROSURG TECHNIQUES, REQ OPER MICROSCOPE N/A 10/25/2019 MICROSCOPE USE (WRVU 3.46) performed by Denzel Madison MD at [facility] MAIN OR ??? PRO REMOVAL OF ELBOW BURSA Right 10/16/2014 EXCISION OF OLECRANON BURSA performed by Anupama Howard MD at [facility] ??? PRO TOTAL HIP ARTHROPLASTY Left 04/12/2020 TOTAL HIP ARTHROPLASTY, ANTERIOR APPROACH (WRVU 20.72) performed by Isidoro Lay MD at [facility] MAIN OR ALLERGIES: Allopurinol MEDICATIONS: No current facility-administered medications on file prior to encounter. Current Outpatient Medications on File Prior to Encounter Medication Sig Dispense Refill ??? sulfaSALAzine (Azulfidine) 500 mg Tablet TAKE ONE TABLET BY MOUTH TWICE A DAY 60 tablet 0 ??? hydrOXYzine (ATARAX) 50 mg Tablet TAKE ONE TABLET BY MOUTH EVERY DAY AT DINNER ??? traZODone (Desyrel) 50 mg Tablet TAKE ONE TABLET BY MOUTH AT BEDTIME ??? HYDROcodone-acetaminophen ([place]) 10-325 mg Tablet TAKE 2 TABLETS BY [...] (Deltasone) 10 mg Tablet as needed. ??? ketoconazole (NIZORAL) 2 % Cream APPLY [...] 10 mg by mouth nightly as needed. FAMILY HISTORY: Family History Problem Relation Age of Onset ??? Cancer Father SOCIAL HISTORY: Social History Socioeconomic History ??? Marital status: Single Spouse name: Not on file ??? Number of children: Not on file ??? Years of education: Not on file ??? Highest education level: Not on file Occupational History ??? Not on file Tobacco Use ??? Smoking status: Never Smoker ??? Smokeless tobacco: Never Used Vaping Use ??? Vaping Use: Never used Substance and Sexual Activity ??? Alcohol use: Yes Alcohol/week: 16.0 - 23.0 standard drinks Types: 14 - 21 Cans of beer, 2 Standard drinks or equivalent per week Comment: 2-3 drinks daily ??? Drug use: Yes Frequency: 7.0 times per week Types: Marijuana Comment: non medical.. uses for sleep / pain ??? Sexual activity: Not on file Other Topics Concern ??? Not on file Social History Narrative ??? Not on file Social Determinants of Health Financial Resource Strain: ??? Difficulty of Paying Living Expenses: Food Insecurity: ??? Worried About Running Out of Food in the Last Year: ??? Ran Out of Food in the Last Year: Transportation Needs: ??? Lack of Transportation (Medical): ??? Lack of Transportation (Non-Medical): Physical Activity: ??? Days of Exercise per Week: ??? Minutes of Exercise per Session: ROS: Pt denies recent fever, chills, infection, wounds, hospitalizations, ED visits, use of antibiotics.Otherwise, as described above. PHYSICAL EXAM: BP 123/67 (Patient Position: Sitting) Pulse 50 Resp 18 Ht 180.3 cm (5' 11) Wt 108.9 kg (240 lb) SpO2 99% BMI 33.47 kg/m?? Physical Exam Constitutional: Pt oriented to person, place, and time. Appears well-developed and well-nourished. No distress. HENT: Head: Normocephalic and atraumatic. Pulmonary/Chest: Effort normal. Neurological: Alert and oriented to person, place, and time. No cranial nerve deficit. Skin: Skin is warm and dry. No rash noted. Not diaphoretic. Psychiatric: Normal mood and affect. MSK: (+) Kemps bilaterally RADIOLOGIC DATA: Relevant imaging reviewed LABS/DX RESULTS: Last 3 wbc, hgb, hct plt Recent Labs 12/12/20 1216 WBC 6.2 HGB 13.9 HCT 41.3 PLATELET 219 Last 3 Lytes Recent Labs 12/12/20 1216 NA 141 K 5.3* CL 105 CO2 28 BUN 11 CREATININE 1.29 Last 3 LFTs Recent Labs 12/12/20 1216 AST 49* ALT 50 ALKPHOS 53 BILITOT 0.4 Last 3 Coags No results for input(s): PT, INR, PTT in the last 168 hours. Last 3 HgbA1C No results for input(s): HA1C in the last 7068 hours. ASSESSMENT: Assessment 1. Spondylosis of lumbar region without myelopathy or radiculopathy PLAN: Proceed with planned lumbar medial branch block bilateral L3, L4, L5-DR. Addressed all questions and concerns. Risks and benefits discussed with patient. No contraindications to the procedure at thistime, will proceed. Stone Khoury MD Pain Management Fellow [facility] [address] [phone] [email or web address] documented in this encounter Miscellaneous Notes * Op Note - Imer Monet MD - 04/02/2021 11:07 AM EDT Pain Management Operative Note Patient Name: Enoc Esteban : [id number] MR#: [id number] Case Date: 04/02/2021 Surgeon: Surgeon(s) and Role: * Imer Monet MD - Primary * Stone Khoury MD - Fellow * Quyen Jordan MD - Fellow Present on Admission: ??? Spondylosis of lumbar region without myelopathy or radiculopathy Postoperative diagnosis: Same Procedure(s) (LRB): INJECTION, FACET JOINT, W\FLUORO, LUMBAR, SINGLE (WRVU 1.52) (Bilateral) INJECTION, FACET JOINT, W\FLUORO, LUMBAR, 2ND LEVEL (WRVU 1) (Bilateral) INJECTION, FACET JOINT, W\FLUORO, LUMBAR, 3RD LEVEL (WRVU 1) (Bilateral) LUMBAR/SACRAL MEDIAL BRANCH BLOCKS Date of Service: 04/02/2021 Patient: Enoc Esteban Provider: Imer Monet MD Enoc Esteban has been referred to the Pain Management Center for bilateral lumbar/sacral medial branch blocks. Mr. Esteban was interviewed and the medical record reviewed. There were no medical, pharmacologic, radiographic or other structural contraindications to attempting fluoroscopically guided local anesthetic lumbar/sacral medial branch blocks. Risks and expected side effects as well as potential benefitof the procedure were reviewed with Mr. Estebanand his voiced concerns addressed. The printed consentform was signed and witnessed. Standard time-out procedure was performed. Mr. Esteban was placed in the prone position on the fluoroscopy table and automated blood pressure cuff and pulse oximeter applied. The skin entry points for approaching the anatomic target points of the segmental medial branches of bilateral L3, L4 and L5-DR were identified with fluoroscopy and marked. Following thorough Chlorhexidine preparation of the skin and draping and 1% lidocaine infiltration of the skin entry points and subcutaneous tissues, a 22 gauge spinal needles were attempted underfluoroscopic guidance down on to the target point for each respective segmental medial branches on the right side. He could not tolerate the placement of the needles and the procedure was aborted dueto patient's discomfort, and inability to tolerate the initial needle placement. Mr. Esteban's vital signs were stable throughout the procedure and were as recorded in the docflowsheet by the nursing staff. Follow up plans and appointments were discussed with Mr. Esteban. I explained that he could have anxiolysis, but not sedation/ general anesthesia for this procedure.He was disappointed, and not willing to proceed with further injections, and also commented that inthe past these injections never worked for him. He will follow up with Dr. Murphy. The procedure was attempted by Dr. Khoury under my supervision. I was the attending physician supervising the fellow in the above care and I was present with the fellow for the entire procedure. Imer Monet MD Attending Physician [facility] [place] [address] / CC: Alek Esparza MD [address] [place] [address] documented in this encounter Plan of Treatment Not on file documented as of this encounter Procedures Procedure Name Priority Date/Time Associated Diagnosis Comments FILM LIBRARY STORAGE ONLY PAIN CLINIC C ARM Routine 04/02/2021 4:11 PM EDT Pain documented in this encounter Results * Film Library- Storage Only pain Clinic C-Arm (04/02/2021 4:11 PM EDT) Narrative [facility] - 04/02/2021 4:11 PM EDT See PACS for result report. Imer Monet MD IM FILM LIBRARY ORD ERABLES Performing Organization Address City/State/[facility] Co de Phone Number [place], [place] documented in this encounter Visit Diagnoses Diagnosis Spondylosis of lumbar region without myelopathy or radiculopathy- Primary Lumbosacral spondylosis without myelopathy Spondylosis of lumbar region without myelopathy or radiculopathy Lumbosacral spondylosis without myelopathy Pain Generalized pain documented in this encounter Active and Recently Administered Medications Times are shown in EDT. PRN Medication Order 03/31/2021 04/01/2021 04/02/2021 iohexoL (Omnipaque) (240 mg/mL) injection solution (CANCELED) ONCE PRN, Starting on Thu04/02/21 at 1110, Until Tu04/02/21 at 1329, Intra-Operative (Intra-Procedure), Routine 1110 (Given - Provid er: Stone Khoury MD) lidocaine (pf) (Xylocaine) (20 mg/mL) 2% injection (CANCELED) ONCE PRN, Starting on e 04/02/21 at 1110, Until 04/02/21 at 1329, Intra-Operative (Intra-Procedure), Routine 1110 (Given - Provid er: Stone Khoury MD) documented in this encounter Care Teams Public Defender Relationship Specialty Start Date End Date Alek Esparza MD [address] [place] [address] PCP - General 09/03/10 04/05/23 documented as of this encounter
--- OUTSIDE RECORDS SUMMARY | 2024-08-29 14:13 | XMS_ITS | Encounter Summary ---
Author Organization [facility] Address [facility] [place] [address] Care Team Providers Care Catalyst Impregnator Name Role Phone Alek Esparza MD Primary Care Provider [phone] Encounter Details Date Type Department Care Team ([facility] st Contact Info) Description 12/05/2020 Orders Only [place] [phone] Katie Richey, POST EXCHANGE MANAGER Social History Tobacco Use Types Packs/Day Years [...] on filedocumented in this encounter Care Teams Catalyst Impregnator Relationship Specialty Start Date End Date Alek Esparza MD [address] [place] [phone] PCP - General 09/03/10 04/05/23 documented as of this encounter
--- OUTSIDE RECORDS SUMMARY | 2024-08-29 14:13 | XMS_ITS | Encounter Summary ---
Author Organization [facility] [address] Care Team Providers Care Data Input Clerk Name Role Phone Alek Esparza MD Primary Care Provider [phone] Reason for Visit * Auth/Cert Specialty Diagnoses [...] Expiration Date Visits Re quested Visits Authorized [id number] 1 1 Encounter Details Date Type Department Care Team (Late st Contact Info) Description 04/02/2021 11:00 AM EDT Ancillary [place] [address] Social History Tobacco Use Types Packs/Day Years [...] Clinic C-Arm (04/02/2021 4:11 PM EDT) Narrative [facility] - 04/02/2021 4:11 PM EDT See PACS for result report. Imer Monet MD IMG FILM LIBRARY ORD ERABLES [place], [place] documented in this encounter Visit Diagnoses Not on filedocumented in this encounter Care Teams Data Input Clerk Relationship Specialty Start Date End Date Alek Esparza MD [address] [place] [phone] PCP - General 09/03/10 04/05/23 documented as of this encounter
--- OUTSIDE RECORDS SUMMARY | 2024-08-29 14:13 | XMS_ITS | Encounter Summary ---
Author Organization [facility] Address [facility] [place] [address] Care Team Providers Care Nicker Name Role Phone Alek Esparza MD Primary Care Provider [phone] Encounter Details Date Type Department Care Team (Latest Contact Info) Description 09/09/2021 3:30 PM EST TH Visit (TeleHealth) [place] [phone] Baldomero Neal PA [address] [place] [address] Inflammatory arthritis (Primary Dx); Arthralgia, unspecified joint; Medication monitoring encounter; Tophaceous gout; Dupuytren's contracture of right hand Social History Tobacco Use Types Packs/Day Years [...] * Patient Instructions* Baldomero Neal PA - 09/09/2021 3:30 PM EST 1. Xray BL Shoulders 2. Update laboratory studies 3. Continue Cymbalta nightly 60 mg 4. Rx for Medrol dose pack patient will call after completion documented in this encounter Progress Notes * Baldomero Neal PA - 09/09/2021 3:30 PM ESTSummary: OA?Gout Rheumatology Outpatient Note Chart review conducted prior [...] male who presents today for evaluation of steroid responsive arthralgiasand gout. At his last visit, He was provided an injection in his right shoulder since having the injection he noted decreased arthralgias he feels it wore off about last week. He was previously triedon azulfidine without significant improvement. He was started on Cymbalta at his last visit, he is taking that at night and finds it helps significantly with his restfulness and arthralgias he would like to continue it. He denies any recent gout attacks. He again reiterates his most bothersome joints are his shoulders. He denies any jaw claudication change in vision or unusual headaches. There isbeen no other changes in his health. Review of Systems Constitutional: Negative for anorexia, diaphoresis and sleep disturbance. Respiratory: Negative for cough, shortness of breath, wheezing, hemoptysis, orthopnea and pleuriticpain. Gastrointestinal: Negative for abdominal discomfort, trouble swallowing and other. HENT: Negative. Psychiatric/Behavioral: Negative for social aversion. Hematologic/Lymphatic: Negative. Allergic/Immunologic: Negative for recurrent infections and immunocompromised state. Musculoskeletal: Negative for joint pain, stiffness, myalgias, joint swelling and fracture. Endocrine: Negative for polydipsia, polyphagia, polyuria and Cushingoid appearance. Cardiovascular: Negative for syncope. Skin: Negative for dry skin, urticaria and blister. Allergies Allergies Allergen Reactions ??? Allopurinol Rash Medications Current Outpatient Medications on File Prior to Visit Medication Sig Dispense Refill ??? hydrOXYzine (ATARAX) 50 mg Tablet TAKE ONE TABLET BY MOUTH EVERY DAY AT DINNER ??? traZODone (Desyrel) 50 mg Tablet TAKE ONE TABLET BY MOUTH AT BEDTIME ??? HYDROcodone-acetaminophen ([place]) 10-325 mg Tablet TAKE 2 TABLETS BY [...] PHALANGES performed by Rohan Duarte MD at [facility] ??? PRO LAMINOTOMY, LUMBAR DISK, 1 INTRSP N/A 10/25/2019 LAMINOTOMY, DECOMPRESSION, FORAMINOTOMY, LUMBAR (WRVU 13.18) [facility] ??? PRO MICROSURG TECHNIQUES, REQ OPER MICROSCOPE N/A 10/25/2019 MICROSCOPE USE (WRVU 3.46) performed by Denzel Madison MD at [facility] OR ??? PRO REMOVAL OF ELBOW BURSA Right 10/16/2014 EXCISION OF OLECRANON BURSA performed by Anupama Howard MD at [facility] ??? PRO TOTAL HIP ARTHROPLASTY Left 04/12/2020 TOTAL HIP ARTHROPLASTY, ANTERIOR APPROACH (WRVU 20.72) performed by Isidoro Lay MD at [facility] OR Physical Examination: There were no [...] review of his options he elected to: 1. Xray BL Shoulders 2. Update laboratory studies 3. Continue Cymbalta nightly 60 mg 4. Rx for Medrol dose pack patient will call after completion 5. Continue Uloric as previous. Further changes pending his clinical course follow-up 2 to 3 months, patient in agreement. 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
--- OUTSIDE RECORDS SUMMARY | 2024-08-29 14:13 | XMS_ITS | Encounter Summary ---
Author Organization [facility] Address [facility] [place] [address] Care Team Providers Care Construction Pit Worker Name Role Phone Alek Esparza MD Primary Care Provider [phone] Reason for Visit * Reason Comments Follow-up Encounter Details Date Type Department Care Team (Late st Contact Info) Description 01/31/2021 11:00 AM EDT Office Visit [facility] [place] [phone] Chace Murphy MD [facility] [address] [facility] [address] Low back pain, non-specific; Sacroiliac dysfunction; Lumbar spondylosis; Arthralgia of multiple joints Social History Tobacco Use Types Packs/Day Years [...] Sign Reading Time Taken Comments Blood Pressure 98/58 01/31/2021 11:20 AM EDT Pulse 83 01/31/2021 11:20 AM EDT Temperature - - Respiratory Rate - - Oxygen Saturation - - Inhaled Oxygen Concentration - - Weight 108.9 kg (240 lb) 01/31/2021 11:20 AM EDT Height 180.3 cm (5' 11) 01/31/2021 11:20 AM EDT Body Mass Index 33.47 01/31/2021 11:20 AM EDT documented in this encounter Progress Notes * Chace Murphy MD - 01/31/2021 11:00 AM EDT Chief Complaint Patient presents with ??? Follow-up Interim history: The patient returns for follow-up during PT treatment. He reports a decrease in the intensity of low back pain. Primary symptoms include generalized low lumbosacral pain that is essentially equal from side to side. He reports having had very good temporary relief of low back pain and polyarthralgias with oral steroids. He has been tolerating PT treatment without difficulty. Pain characteristics: Essentially constant, dull in quality. Pain is currently graded as 3-4/10 in intensity. Exacerbating factors: Lifting, bending, prolonged sitting, prolonged standing, right side-lying andbed transfers. Alleviating factors: General physical activity and position change. The patient denies lower extremity pain radiation or focal lower extremity weakness. Sensory symptoms include a several year history of plantar foot numbness. The patient continues to complain of pain in knees, hips, ankles and shoulders. Clinical materials reviewed: 1. Clinical office note of Baldomero Neal PT, 12/12/2020. The patient was seen for evaluation of arthralgias. The patient stated that, over the last few years, he has hurt everywhere. He reported a history of tick bite. Assessment was multifactorial arthralgias. Medrol Dosepak was prescribed. MICHI was positive at 1: 320. All other immunological tests and inflammatory markers were negative or within normal limits. A follow-up phone call from the rheumatological office on 12/19/2020 found the patient to have improved mobility and decreased joint pain. He reported an overall 50% improvement with oral steroids. Rheumatological follow-up is scheduled for 02/05/2021. Past Medical History: Diagnosis Date ??? Antiplatelet or antithrombotic long-term use On Eliquis for afib ??? Asthma Lafleur's Lung. Combivent inhaler prn. ??? Bowel disease Just got over c-diff. Treated and resolved per . ??? Chronic pain Back and LLE. ??? Claudication After standing for a long time. ??? Fracture of left small finger, proximal, closed 02/07/2013 ??? History of elbow surgery, right Dr. Howard, 10/16/2014 exc prox caroline sherrieophyte 11/24/2014 ??? Irregular heart beat Afib. Takes Eliquis ??? 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 Moderate asthma ??? Pain in right elbow 06/13/2014 ??? Syncope Gets light-headed occasionally. No falls, just needs to sit down until resolved. Current Outpatient Medications on File Prior to Visit Medication Sig Dispense Refill ??? hydrOXYzine (ATARAX) 50 mg Tablet TAKE ONE TABLET BY MOUTH EVERY DAY AT DINNER ??? traZODone (Desyrel) 50 mg Tablet TAKE ONE TABLET BY MOUTH AT BEDTIME ??? HYDROcodone-acetaminophen ([place]) 10-325 mg Tablet TAKE 2 TABLETS BY [...] 10 mg by mouth nightly as needed. ??? predniSONE (Deltasone) 10 mg Tablet as needed. ??? ketoconazole (NIZORAL) 2 % Cream APPLY TO THE AFFECTED AREA S TOPICALLY EVERY DAY DIRECTED ??? cyclobenzaprine (Flexeril) 10 mg Tablet TAKE ONE TABLET BY MOUTH THREE TIMES A DAY DIRECTED No current facility-administered medications on file prior to visit. Allergies Allergen Reactions ??? Allopurinol Rash Review of Systems: As above. Objective: BP 98/58 Pulse 83 Ht 180.3 cm (5' 11) Wt 108.9 kg (240 lb) BMI 33.47 kg/m?? The patient is in no apparent distress. Alert and oriented x3. Affect is appropriate. Carmencita's signs are absent. Gait and station: Gait is normal. The patient is able to perform bilateral heel and toe walking. The former is limited by ankle pain and balance impairment. Right shoulder is elevated in standing. Patient reports generalized low lumbosacral pain at end range lumbar extension. Pelvic alignment/motion: Standing iliac crest palpation is elevated on the right. There is a right-sided tenderness with the assessment. Standing flexion test is positive on the right. Palpation: Tenderness is found over right quadratus lumborum, bilateral sacroiliac joints and righthip greater trochanter. Motor: 5/5 throughout the lower extremities. Sensation: Intact to light touch throughout the lower extremities. Straight leg raising: Negative bilaterally. Muscle stretch reflexes: Unobtainable throughout the lower extremities. Assessment: Encounter Diagnoses Name Primary? Low back pain, non-specific ??? Sacroiliac dysfunction ??? Lumbar spondylosis ??? Arthralgia of multiple joints The patient reports some decrease in low back pain following institution of physical therapy. Therehas been a much more dramatic decrease in pain following treatment with oral steroids. I await further input from rheumatology regarding treatment of ongoing polyarthralgias, as the patient's low back pain might be tied to a more systemic inflammatory process. The patient has been tolerating physical therapy satisfactorily. I have encouraged him to continue the current treatment program. The patient will return for follow-up in 6 weeks. Consideration may be given to interventional treatment involving sacroiliac joints or facets, if he experiences no further relief with additional physical therapy and/or rheumatological treatment. Plan: 1. Continue PT treatment. 2. Rheumatological follow-up with CARMELINA Lyon. 3. Follow-up with me in 6 weeks. Total time spent on date of encounter = 33 minutes. Chace Murphy MD, MS 01/31/2021 * Perla Dhillon LPN - 01/31/2021 11:00 AM EDT Confirmed with pt that a detailed line by line medication and allergy review was performed by Ximena Gates as documented on 01-30-21 as part of the telephone Intake process. Confirmed with pt that there have been no medication/allergy additions or changes over the previous 1 days. documented in this encounter Plan of Treatment Not on file documented as of this encounter Visit Diagnoses Diagnosis Low back pain, non-specific Sacroiliac dysfunction Disorders of sacrum Lumbar spondylosis Lumbosacral spondylosis without myelopathy Arthralgia of multiple joints Pain in joint, multiple sites documented in this encounter Care Teams Construction Pit Worker Relationship Specialty Start Date End Date Alek Esparza MD [address] [place] [phone] PCP - General 09/03/10 04/05/23 documented as of this encounter
--- OUTSIDE RECORDS SUMMARY | 2024-08-29 14:13 | XMS_ITS | Encounter Summary ---
Author Organization [facility] Address [facility] [place] [address] Care Team Providers Care Cyber Analyst Name Role Phone Alek Esparza MD Primary Care Provider [phone] Encounter Details Date Type Department Care Team (Late st Contact Info) Description 05/09/2020 1:30 PM EDT - 05/09/2020 11:59 PM EDT Hospital Encounter XRay at [address] [place] [phone] Isidoro Lay MD [facility] [place] [address] Primary osteoarthritis of left hip; Pain of left lower extremity Discharge Disposition: Home Social History Tobacco Use [...] on file documented as of this encounter Medications at Time of Discharge Medication Sig Dispensed Refills Start Date End Date HYDROcodone-acetaminop hen ([place]) 10-325 mg Tablet TAKE 2 TABLETS BY [...] 10 mg by mouth nightly as needed. naproxen (EC NAPROSYN) 500 mg Tablet, Delayed Release (E.C.) Take 1 tablet by mouth 2 times daily (with meals) for 42 days. 84 tablet 04/13/2020 05/25/2020 gabapentin (Neurontin) 300 mg Capsule Take 1 capsule by mouth nightly for 28 days. 28 capsule 04/13/2020 05/11/2020 acetaminophen (Tylenol) 500 mg Tablet Take 2 tablets by mouth every 8 hours. Take as directed around the clock for ten days after your surgery. After that you can take Tylenol as needed per package insert. 04/13/2020 04/19/2024 oxyCODONE (Roxicodone) 5 mg Tablet Take 1 tablet by mouth every 4 hours as needed for Pain. Take the smallest dose possible to control your pain. 70 tablet 04/13/2020 11/08/2020 omeprazole (PriLOSEC OTC) 20 mg Tablet, Delayed [...] 10 days after surgery. 6 11/04/2019 04/21/2024 gabapentin (NEURONTIN) 100 mg Capsule Take 1 capsule three times daily x7 days, then take 2 capsules three times daily x7 days, then take 3 capsules three times daily 90 capsule 12 07/19/2019 01/30/2021 documented as of this encounter Plan of Treatment Not on file documented as of this encounter Procedures Procedure Name Priority Date/Time Associated Diagnosis Comments XR PELVIS AND HIP 2 VIEWS LEFT Routine 05/09/2020 1:48 PM EDT Primary osteoarthritis of left hip Pain of left lower extremity documented in this encounter Results * XR Pelvis and Hip 2 Views Left (05/09/2020 1:48 PM EDT) Anatomical Region Laterality Modality Pelvis, Hip Left Digital Radiogra phy Impressions 05/09/2020 2:24 PM EDT 1. ??Uncomplicated left total hip arthroplasty. 2. ??Unchanged right hip osteoarthropathy. Cam morphology of the proximal right femur may predispose to clinical symptoms of femoral acetabular impingement. Thank you for letting us participate in the care of this patient. For questions regarding this report, please contact the number below. ? Electronically signed by: Marti Acosta [facility] ([phone]), at 05/09/2020 2:24 PM Narrative 05/09/2020 2:24 PM EDT EXAMINATION: XR PELVIS AND HIP 2 VIEWS LEFT CLINICAL HISTORY: History of hip replacement (as entered by ordering provider in the order requisition) TECHNIQUE: Low AP view the pelvis. AP and frog leg lateral views of the left hip. COMPARISON: Pelvis and left hip radiographs 04/12/2020. Intraoperative fluoroscopic images 04/12/2020. FINDINGS: Status post left total hip arthroplasty. The femoral head component is centered within the acetabular cup. There is no periprosthetic fracture or bone resorption. There is joint space narrowing with subchondral sclerosis and marginal osteophyte formation of the right hip which is unchanged. There is a small os acetabula versus intra-articular body along the lateral margin of the right hip. There is cam morphology of the right proximal femur which is unchanged and may predispose to clinical symptoms of femoral acetabular impingement. Degenerative disc disease and facet arthropathy lower lumbar spine. Procedure Note Marti Acosta MD - 05/09/2020 EXAMINATION: XR PELVIS AND HIP 2 VIEWS LEFT CLINICAL HISTORY: History of hip replacement (as entered by orderingprovider in the order requisition) TECHNIQUE: Low AP view the pelvis. AP and frog leg lateral views of the left hip. COMPARISON: Pelvis and left hip radiographs 04/12/2020. Intraoperative fluoroscopicimages 04/12/2020. FINDINGS: Status post left total hip arthroplasty. The femoral head component iscentered within the acetabular cup. There is no periprosthetic fracture or bone resorption. There is joint space narrowing with subchondral sclerosis and marginal osteophyte formation of the right hip which is unchanged. There is a smallos acetabula versus intra-articular body along the lateral margin of theright hip. There is cam morphology of the right proximal femur which is unchanged andmay predispose to clinical symptoms of femoral acetabular impingement. Degenerative disc disease and facet arthropathy lower lumbar spine. IMPRESSION 1. Uncomplicated left total hip arthroplasty. 2. Unchanged right hip osteoarthropathy. Cam morphology of the proximalright femur may predispose to clinical symptoms of femoral acetabularimpingement. Thank you for letting us participate in the care of this patient. Forquestions regarding this report, please contact the number below. Electronically signed by: Marti Acosta [facility]([phone]), at 05/09/2020 2:24 PM Isidoro Lay MD IMG DX ORDERABLES documented in this encounter Visit Diagnoses Diagnosis Primary osteoarthritis of left hip Primary localized osteoarthrosis, pelvic region and thigh Pain of left lower extremity documented in this encounter Care Teams Cyber Analyst Relationship Specialty Start Date End Date Alek Esparza MD [address] [place] [phone] PCP - General 09/03/10 04/05/23 documented as of this encounter
--- OUTSIDE RECORDS SUMMARY | 2024-08-29 14:13 | XMS_ITS | Encounter Summary ---
Author Organization [facility] Address [facility] [place] [address] Care Team Providers Care Geoscience Technician Name Role Phone Alek Esparza MD Primary Care Provider [phone] Encounter Details Date Type Department Care Team (Late st Contact Info) Description 04/01/2021 Telephone [place] [phone] Karen Flores LNA Social History Tobacco Use Types Packs/Day Years [...] encounter Miscellaneous Notes * Telephone Encounter - Karen Flores - 04/01/2021 9:13 AM EDT Enoc Esteban :1960 Contact made with patient: I spoke to Mr. Esteban at 9:14 AM regarding upcoming Bilateral lumbar medial branch block scheduled on 04/02/21 (date) scheduled at 1030 (time) with Dr. Alverto Monet MD. Medication and Allergy reconciliation: 1. Changes were made in the telephone encounter per patient; marked as reviewed, and closed. 3. Have you had any steroid injections anywhere in your body within the last two weeks? no Arrival time: The patient was instructed to arrive at 1000 (30 minutes prior to procedure start time - 60 minutesprior for RF patients with a pacemaker). Antibiotics/Skin assessment/Illness symptoms/Pain level assessment : 1. Are you currently taking an antibiotic for any active infections No 2. Do you currently have any rashes, blisters, skin breakdown or open wounds. No 3. Are you still experiencing pain? Yes 4. Have you received, or are you scheduled to received a COVID vaccination Yes 2nd dose was Rachael per pt. Pain and Anti-anxiety Medications: 1. Nerve Block Procedure Patients: Patient was instructed NOT to take their pain medications on theday of the procedure and anti-anxiety medications are part of their daily medication regiment; theycan and should continue taking that medication. 2. All Other Procedure Patients: The patient was instructed that if they take daily pain or anti-anxiety medications, they can and should continue taking on the day of the procedure. Does patient have history of any diagnosed bleeding disorders: No Anticoagulants: Yes eliquis per pt NSAIDs: Does the patient take Aspirin/ASA? No but takes Tylenol per pt Does the patient take an NSAID? no Diabetic instructions: Patient was advised to inform their PCP regarding safe fasting and the NPO requirements for their upcoming procedure and given the [facility] Nurse Triage Line . Implant: Patient has pacemaker/defibrillator: No JAN Francisco documented in this encounter Plan of Treatment Not on file documented as of this encounter Visit Diagnoses Not on filedocumented in this encounter Care Teams Geoscience Technician Relationship Specialty Start Date End Date Alek Esparza MD [address] [place] [phone] PCP - General 09/03/10 04/05/23 documented as of this encounter
--- OUTSIDE RECORDS SUMMARY | 2024-08-29 14:13 | XMS_ITS | Encounter Summary ---
Author Organization [facility] Address [facility] [place] [address] Care Team Providers Care Soil Conservation Aide Name Role Phone Alek Esparza MD Primary Care Provider [phone] Encounter Details Date Type Department Care Team (Late st Contact Info) Description 02/05/2021 2:00 PM EDT Office [place] [phone] Baldomero Neal PA [address] [place] [address] Inflammatory arthritis (Primary Dx); Medication monitoring encounter; [...] Sign Reading Time Taken Comments Blood Pressure 117/67 02/05/2021 1:57 PM EDT Pulse 53 02/05/2021 1:57 PM EDT Temperature 36.3 ??C (97.4 ??F) 02/05/2021 1:57 PM ED T Respiratory Rate - - Oxygen Saturation 99% 02/05/2021 1:57 PM EDT Inhaled Oxygen Concentration - - Weight 112.9 kg (249 lb) 02/05/2021 1:57 PM EDT Height 180.3 cm (5' 11) 02/05/2021 1:57 PM EDT Body Mass Index 34.73 02/05/2021 1:57 PM EDT documented in this encounter Patient Instructions * Patient Instructions* Baldomero Neal PA - 02/05/2021 2:00 PM EDT Follow up 2 month Will start sss 500mg bid In three week repeat blood work at [facility] documented in this encounter Progress Notes * Baldomero Neal PA - 02/05/2021 2:00 PM EDTSummary: gout, inflammatory arthritis Rheumatology Outpatient Note Chart review conducted prior [...] male who presents today for evaluation of arthralgias. Patient reports that for the last few years he hurts everywhere. He attributes things getting worse over time after being bitten by a tick. He denies any red warm swollen joints. He has pain in his spine frequently. He denies any recent gout attacks. His history of chronic lumbar pain is followed by multiple providers. He reports it remains unimproved despite lumbar discectomy and left total hip arthroplasty in April 2020. Because some of his low back pain is reported as mechanical in origin he plans on utilizingphysical therapy to help with these arthralgias. He reports anywhere between 30 minutes to 1 hour of morning stiffness. When he wakes up in the morning he takes 500 mg of Tylenol and a couple hydrocodone and then he feels ok. At his last exam 12/12/20 he was provided a medrol dose pack. He reports a substantial positive response to the medrol dose pack, it improved his arthralgias, and improved his morning stiffness. Review of Systems Constitutional: Negative for anorexia, diaphoresis, absenteeism, fever and weight loss. Respiratory: Negative for cough, shortness of breath, chest discomfort and PND. Gastrointestinal: Negative for vomiting, GERD, constipation and trouble swallowing. HENT: Negative. Psychiatric/Behavioral: Negative for social aversion. Hematologic/Lymphatic: Negative. Allergic/Immunologic: Negative for recurrent infections and immunocompromised state. Musculoskeletal: Negative. Endocrine: Negative for polydipsia, polyphagia, polyuria and Cushingoid appearance. Cardiovascular: Negative. Neurological: Negative for vertigo. Skin: Negative for urticaria, blister, photosensitivity and erythema. Allergies Allergies Allergen Reactions ??? Allopurinol Rash Medications Current Outpatient Medications on File Prior to Visit Medication Sig Dispense Refill ??? hydrOXYzine (ATARAX) 50 mg Tablet TAKE ONE TABLET BY MOUTH EVERY DAY AT DINNER ??? traZODone (Desyrel) 50 mg Tablet TAKE ONE TABLET BY MOUTH AT BEDTIME ??? HYDROcodone-acetaminophen ([place]) 10-325 mg Tablet TAKE 2 TABLETS BY [...] ??? S/p Left SLIM on 04/12/20 (Dr. aLy) M16.12 ??? Status post total hip replacement, left Z96.642 ??? Dupuytren's contracture of right hand M72.0 SurgHX Past Surgical History: Procedure Laterality Date ??? PRO CLOSED TREAT TOE FX 02/08/2013 CLOSED TREATMENT FX PHALANX OR PHALANGES performed by Rohan Duarte MD at [facility] ??? PRO LAMINOTOMY, LUMBAR DISK, 1 INTRSP N/A 10/25/2019 LAMINOTOMY, DECOMPRESSION, FORAMINOTOMY, LUMBAR (WRVU 13.18) performed [facility]zel Madison [facility] ??? PRO MICROSURG TECHNIQUES, REQ OPER MICROSCOPE N/A 10/25/2019 MICROSCOPE USE (WRVU 3.46) performed by Denzel Madison MD at [facility] MAIN OR ??? PRO REMOVAL OF ELBOW BURSA Right 10/16/2014 EXCISION OF OLECRANON BURSA performed by Anupama Howard MD at [facility] ??? PRO TOTAL HIP ARTHROPLASTY Left 04/12/2020 TOTAL HIP ARTHROPLASTY, ANTERIOR APPROACH (WRVU 20.72) performed by Isidoro Lay MD at [facility] MAIN OR Family Hx: Family History Problem Relation Age of Onset ??? Cancer Father Physical Examination: BP 117/67 Pulse 53 Temp 36.3 ??C (97.4 ??F) (Temporal) Ht 180.3 cm (5' 11) Wt 112.9 kg (249 lb) SpO2 99% BMI 34.73 kg/m?? Musculoskeletal: Compensated gait Patient gets up out of a chair onto the examination table with no assistance Thoracic kyphosis Decreased internal rotation bilateral hips Left elbow with limitation of range of motion Bilateral fourth/fifth digit contractures Osteoarthritic features throughout the hands Physical Exam Constitutional: General: He is not in acute distress. Appearance: Normal appearance. He is not ill-appearing, toxic-appearing or diaphoretic. HENT: Head: Normocephalic and atraumatic. Right Ear: External ear normal. Left Ear: External ear normal. Nose: Nose normal. Eyes: General: No scleral icterus. Right eye: No discharge. Left eye: No discharge. Conjunctiva/sclera: Conjunctivae normal. Cardiovascular: Rate and Rhythm: Normal rate and regular rhythm. Pulses: Normal pulses. Heart sounds: Normal heart sounds. No friction rub. No gallop. Pulmonary: Effort: Pulmonary effort is normal. No respiratory distress. Breath sounds: Normal breath sounds. No stridor. No wheezing, rhonchi or rales. Chest: Chest wall: No tenderness. Abdominal: Palpations: Abdomen is soft. Tenderness: There is no abdominal tenderness. There is no guarding or rebound. Hernia: No hernia is present. Musculoskeletal: General: No swelling, tenderness or signs of injury. Skin: General: Skin is dry. Capillary Refill: Capillary refill takes less than 2 seconds. Coloration: Skin is not pale. Findings: No bruising, erythema or lesion. Neurological: Mental Status: He is alert and oriented to person, place, and time. Motor: No weakness. Psychiatric: Mood and Affect: Mood normal. Behavior: Behavior normal. Thought Content: Thought content normal. Judgment: Judgment normal. Laboratory Data: Component Latest Ref Rng & Units 12/12/2020 Glucose Lvl 65 - 199 mg/dL 110 BUN 10 - 20 mg/dL 11 Creatinine 0.80 - 1.50 mg/dL 1.29 Sodium 135 - 145 mmol/L 141 Potassium 3.5 - 5.0 mmol/L 5.3 (H) Chloride 98 - 107 mmol/L 105 CO2 22 - 31 mmol/L 28 Anion Gap 5 - 15 mmol/L 8 Calcium 8.5 - 10.5 mg/dL 9.6 Total Protein 6.1 - 8.0 gm/dL 6.7 Albumin 3.2 - 5.2 gm/dL 4.4 AST 0 - 39 unit/L 49 (H) ALT 0 - 55 unit/L 50 Alk Phos 40 - 130 unit/L 53 Total Bilirubin 0.2 - 1.3 mg/dL 0.4 Estimated GFR >=60 mL/min/1.73 m?? 61 WBC 4.0 - 9.5 x10(3)/mcL 6.2 RBC 4.58 - 5.54 x10(6)/mcL 4.03 (L) Hemoglobin 13.7 - 16.5 gm/dL 13.9 Hematocrit 40.5 - 48.5 % 41.3 MCV 82.9 - 93.1 fL 102.5 (H) MCH 27.5 - 32.1 pg 34.5 (H) MCHC 32.0 - 35.7 gm/dL 33.7 Platelets 145 - 357 x10(3)/mcL 219 RDWSD 36.0 - 45.0 fL 51.8 (H) RDWCV 11.4 - 13.8 % 13.6 MPV 7.6 - 12.9 fL 10.1 nRBC % Auto % 0.0 nRBC Abs Auto 0.000 - 0.000 x10(3)/mcL 0.000 Neutrophils % % 42.8 Neutr Abs (ANC) 1 - 6 x10(3)/mcL 2.67 Lymphocytes % % 40.4 Lymphocytes Abs 0.9 - 3.2 x10(3)/mcL 2.5 Monocytes % % 11.7 Monocyte Abs 0.3 - 0.9 x10(3)/mcL 0.7 Eosinophils % % 3.8 Eosinophils Abs 0.0 - 0.4 x10(3)/mcL 0.2 Basophils % % 1.1 Basophils Abs 0.0 - 0.1 x10(3)/mcL 0.1 Immature Gran % % 0.20 Lou Gran Abs 0.00 - 0.04 x10(3)/mcL 0.01 CRP <=4.9 mg/L 1.7 Sed Rate 2 - 37 mm/hr <3 Uric Acid 3.5 - 8.5 mg/dL 4.6 Antinuclear Ab Test Result Flag Unit RefValue (A) . . . Anti-Cyc Cit Peptide <=4.9 unit/mL <0.5 RF <=14 IU/mL <10 C4 Complement 10 - 40 mg/dL 19 C3 Complement 90 - 180 mg/dL 93 KRISSY Ab Test Result Flag Unit RefValue . . . dsDNA Ab <30.0 (Negative) IU/mL <12.3 Impression/Recommendations : Enoc Esteban is a 61 y.o. male who presents today with inflammatory arthritis with a history of gout patient with arthralgias that responded to Medrol Dosepak. After review of his options he electedfor a trial of sulfasalazine 500 mg twice daily side effects reviewed expectations discussed. Afterinitiating treatment for 3 weeks we will repeat laboratory studies at [facility] near his home. Any additional changes pending review of those labs and his clinical course the possibility of optimizing his therapy in 4 weeks discussed follow-up in clinic in 2 months sooner for any problems patient in agreement. 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
--- OUTSIDE RECORDS SUMMARY | 2024-08-29 14:13 | XMS_ITS | Encounter Summary ---
Author Organization [facility] [place] [address] Care Team Providers Care Signal Intelligence Analyst Name Role Phone Alek Esparza MD Primary Care Provider [phone] Reason for Visit * Reason Onset Date Comments New Medication Request 02/07/2021 Encounter Details Date Type Department Care Team (Late st Contact Info) Description 02/07/2021 [place] [phone] Avery Perry, RN New Medication Request Social History Tobacco Use Types Packs/Day Years [...] Telephone Encounter - Avery Perry RN - 02/07/2021 2:33 PM EDT Patient calls clinic regarding ssz rx. States reached out to Aissatou becky in [facility], no rx from provider, had appt on 02/05. Requests rx be sent to pharmacy. documented in this encounter Plan of Treatment Not on file documented as of this encounter Visit Diagnoses Not on filedocumented in this encounter Care Teams Signal Intelligence Analyst Relationship Specialty Start Date End Date Alek Esparza MD [address] [place] [phone] PCP - General 09/03/10 04/05/23 documented as of this encounter
--- OUTSIDE RECORDS SUMMARY | 2024-08-29 14:13 | XMS_ITS | Encounter Summary ---
Author Organization [facility] Address [facility] [place] [address] Care Team Providers Care Handle Rounder Operator Name Role Phone Alek Esparza MD Primary Care Provider [phone] Reason for Visit * Occupational Therapy (Routine) - Closed Specialty Diagnoses / Procedures Referred By Debra t Referred To Contact Occupational Therapy Diagnoses Dupuytren's contracture Randell Stahl MD [facility] [place] [address] [facility] [address] [place] [address] Referral ID Status Reason Start Date Expiration Date V isits Requested Visits Authorized [id number] Closed Evaluate and Treat 11/09/2020 11/09/2021 12 12 Encounter Details Date Type Department Care Team (Late Contact Info) Description 11/09/2020 10:15 AM EST Office Visit Occupational Therapy at [facility] [address] [place] [phone] Preeti Rogers OT Dupuytren's contracture of right hand Social History [...] as of this encounter Miscellaneous Notes * Initial Evaluation - Preeti Rogers OT - 11/09/2020 10:15 AM EST OCCUPATIONAL THERAPY ORTHOTIC EVALUATION Certification Period: 11/09/20- 12/31/20 Referral Source: Dr. Favio Vazquez MD Follow-up: MARK Total Treatment time: 20 Minutes Timed Code Treatment Time: 0 minutes OCCUPATIONAL PROFILE: Enoc Esteban is a 60 y.o. year old Right hand dominant male who underwent Xiaflex injection on 11/08/20 , now seen in orthopedics clinic following a manipulation of cord(s) in RIGHT ring finger(s). Enoc Esteban is referred to Occupational Therapy for evaluation and treatment to include fabrication of a custom orthosis. Patient presents today alone. Date of onset of symptoms: ongoing Date of surgery: 11/08/20 (injection), 11/09/20 (manipulation) Pertinent History and/or Co-morbidities: 1. Dupuytren's contracture of right hand OCCUPATIONAL PERFORMANCE DEFICITS: Enoc Esteban is limited with current performance due to swelling, stiffness and limited mobility/range of motion. Global Mental Function: With gross screening of patient???s global mental functions, patient demonstrates orientation to person, place, time, and situation. Patient???s affect/behavior is appropriateand cooperative today. Pain: (Assessed using the Visual Analog Pain Scale) At Rest: 0/10 With Activity: 3/10 Treatment Today: Orthosis - Finger Orthotic, W/O Jts, Custom, Fit & Adj ([id number]) Educated patient in etiology and biomechanics as related to patient's symptoms Fabricated hand-based extension orthosis Instructed in orthosis wear and care Range of Motion Exercises: on during day and night until 11/12/20. Remove every 2- 3 hours for AROM flexion, extension; PROM extension. On Thursday, may stop daytime wear and wear only during sleep for the next week. Resume normal use as tolerated,continue with exercises for 1-2 weeks. CLINICAL DECISION MAKING: Enoc Esteban has a well fitting orthosis post therapy. Enoc Esteban is able to independently verbalize and demonstrate the recommended home program following instructions today. Enoc Esteban has good potential for gains with therapy/home program use. Patient knows to call with any questions or concerns. Short Term Goals (to be met by end of the visit today): Date Goal Met: Today 1. Enoc Esteban will demonstrate independence with donning and doffing of his orthosis and verbalization of purpose. Goal Status: Meets. Today 2. Enoc Esteban will be independent with home exercises as evident with demonstration in therapy. Goal Status: Meets PLAN: f/u PRN (X) Enoc Esteban participated in the evaluation, collaborated on treatment goals, and agrees to the treatment plan. documented in this encounter Plan of Treatment Scheduled Referrals Name Type Priority Associated Diagnoses Orde r Schedule Referral to Occupational Therapy Outpatient Referral Routine Dupuytren's contracture Ordered: 11/09/2020 documented as of this encounter Visit Diagnoses Diagnosis Dupuytren's contracture of right hand Contracture of palmar fascia documented in this encounter Care Teams Handle Rounder Operator Relationship Specialty Start Date End Date Alek Esparza MD [address] [place] [phone] PCP - General 09/03/10 04/05/23 documented as of this encounter
--- OUTSIDE RECORDS SUMMARY | 2024-08-29 14:13 | XMS_ITS | Encounter Summary ---
Author Organization [facility] Address [facility] [place] [address] Care Team Providers Care Solar Sales Energy Advisor Name Role Phone Alek Esparza MD Primary Care Provider [phone] Reason for Visit * Reason Comments Follow-up Dupuytrens bilateral Encounter Details Date Type Department Care Team (Late st Contact Info) Description 12/06/2020 1:45 PM EST Office [place] [phone] Randell Matamoros MD [facility] [place] [address] Dupuytren's contracture Social History Tobacco Use Types [...] this encounter Progress Notes * Selena Gold - 12/06/2020 1:45 PM EST Plastic Surgery Hand Follow Up Note Provider: Dr. Randell Matamoros M.D. CC: Dupuytren's Contracture HPI: Patient returns to clinic, 3.5 weeks s/p Xiaflex injection and manipulation the following day to his right ring finger. He reports he has been well. There is minimal pain and numbness in his right ring finger. There is some contracture of his right small finger. He stated that he is interested in Xiaflex injection and manipulation of this finger. He needs to undergo other procedures prior to scheduling themanipulation. Examination: There were no vitals taken for this visit. No acute distress Right ring finger: Full ROM of right ring finger with good resolution of contracture of his palm Some decreased sensation in ring finger, but his usual state for carpal tunnel Lacks 30 deg of extension at PIP joint of right small finger Dupuytren's cord in left ring finger which results in loss of extension of 40 deg at MP joint of ring finger Impression: Enoc Esteban is a 60 y.o. male patient here in Follow-Up, s/p Xiaflex injection and manipulation to right ring finger. Plan: 1. Schedule Xiaflex injection for right small finger, when convenient I, Selena Gold, have performed the documentation for this encounter in the presence of, and acting as a scribe for RANDELL MATAMOROS MD. documented in this encounter Plan of Treatment Not on file documented as of this encounter Visit Diagnoses Diagnosis Dupuytren's contracture Contracture of palmar fascia documented in this encounter Care Teams Solar Sales Energy Advisor Relationship Specialty Start Date End Date Alek Esparza MD [address] [place] [phone] PCP - General 09/03/10 04/05/23 documented as of this encounter
--- OUTSIDE RECORDS SUMMARY | 2024-08-29 14:13 | XMS_ITS | Encounter Summary ---
Author Organization [facility] Address [facility] Fred[address] sanders [place] [id number] Care Team Providers Care Banking Consultant Name Role Phone Alek Esparza MD Primary Care Provider [phone] Reason for Referral * Physical Therapy (Routine) - Specialty Diagnoses / Procedures Referred By Contac t Referred To Contact Physical Therapy Diagnoses Primary osteoarthritis of left hip History of total hip arthroplasty, left Autumn German PA [facility] [place] [address] Referral ID Status Reason Start Date Expiration Date V isits Requested Visits Authorized [id number] Evaluate and Treat 05/09/2020 11/05/2020 12 12 Reason for Visit * Reason Comments Post Op L SLIM anterior DOS 0 04/12/2020 Encounter Details Date Type Department Care Team (Late st Contact Info) Description 05/09/2020 2:30 PM EDT Office [place] [phone] Isidoro Lay MD [facility] [place] [address] S/p Left SLIM on 04/12/20 (Dr. Lay); History of total hip arthroplasty, left Social History Tobacco Use Types Packs/Day Years [...] Sign Reading Time Taken Comments Blood Pressure 119/84 05/09/2020 2:22 PM EDT Pulse 93 05/09/2020 2:22 PM EDT Temperature - - Respiratory Rate - - Oxygen Saturation - - Inhaled Oxygen Concentration - - Weight 107.5 kg (237 lb) 05/09/2020 2:22 PM EDT Height 180.3 cm (5' 10.98) 05/09/2020 2:22 PM E DT Body Mass Index 33.07 05/09/2020 2:22 PM EDT documented in this encounter Progress Notes * Autumn German PA - 05/09/2020 2:30 PM EDT Arthroplasty/Orthopaedic History: 1. Left SLIM 04/12/2020 ([place]) HPI: Enoc Esteban is a very pleasant 60 y.o. year-old male and is now 1 months post left total hipreplacement The patient has been doing well. . { No fevers, chills, nausea, vomiting, or symptoms of infection. Enoc has been ambulating with a cane . He has not been working with PT. He was never told he needed to. He is using tylenol and hydrocodone for pain medicaiton. He takes the hydrocodone in the morning and at night. ROS: Denies: fever, chills, night sweats, nausea, or vomiting BP 119/84 (BP Location (NBP): Right arm, Patient Position: Sitting, BP Cuff Sizes: Large Adult (32-43 cm)) Pulse 93 Ht 180.3 cm (5' 10.98) Wt 107.5 kg (237 lb) BMI 33.07 kg/m?? Physical Exam: Well-appearing male in no acute distress. Alert and Oriented x 3 and answers all questions appropriately. The incision is well healed, with no signs of infection. Hip Exam: Left Leg Length: Longer leg: equal Limb Length discrepancy: 0cm Motion: Flexion contracture: 0 Total degrees of Flexion: 115 Total degrees of Abduction: 35 Total degrees of Ext Rotation: 35 Total degrees of Internal Rotation: 0 Gait Abnormality: Antalgic Pulses Palpable: Left PT: Yes Left DP: Yes Motor/Sensory: Left Distal Motor: Normal Distal Sensory: Normal Hip Abductors: 4 X-RAYS: Multiple radiographic views were obtained at my request and reviewed with the patient. X-rays show a well-placed prosthesis with no evidence of fracture, subsidence, loosening, or periprosthetic complication. Questionnaire Responses: [facility] Surgical Postop Visit 05/09/2020 PROMIS-10 General Health Fair PROMIS-10 Quality of Life Good PROMIS-10 Physical Health Fair PROMIS-10 Mental Health Fair PROMIS-10 Social Activity Fair PROMIS-10 Everyday Activities Moderately PROMIS-10 Pain 4 PROMIS-10 Fatigue Moderate PROMIS-10 Social Roles Fair PROMIS-10 Anxious or Depressed Often PROMIS PHYSICAL HEALTH SCORE 37.4 PROMIS MENTAL HEALTH SCORE 36.3 HOOS JR Scores 55.99 Problems with surgical incision/wound after surgery No Gone to ER since knee surgery No Admitted to hospital since recent ortho surgery No Additional surgery on same body part No SLIM Grade 5 Pain in other HIP Moderate Back pain at this moment Moderate Satisfaction with Treatment Somewhat satisfied Choose Same Treatment Again Definitely yes Orthopeadics [facility] Response 05/09/2020 HOOS JR Scores 55.99 Spine [facility] Response 05/09/2020 HOOS JR Scores 55.99 ASSESSMENT/PLAN: Mr. Esteban is a 60 y.o. year old male status post left total hip replacement. Doingwell postoperatively. Continue weightbearing as tolerated and working on range of motion. We will see him back in 1 years for repeat examination. X-rays will be needed at that time. Patient may return to normal activities as his pain and function allow. We discussed the appropriate precautions surrounding dental prophylaxis; according to the AAOS Appropriate Use Criteria we do not recommend antibiotic use prior to dental procedures for Enoc. Recommended antibiotic: N/A If Enoc has any changes in health status we recommend he contact our office prior to dental procedures for updated recommendations We also discussed maintaining good foot care and giving prompt attention to any source of infectionthroughout the body including foot ulcers and urinary tract infections. All questions were answered. Signed: CARMELINA Kilgore 05/09/2020 documented in this encounter Plan of Treatment Scheduled Referrals Name Type Priority Associated Diagnoses Orde r Schedule Referral to Physical Therapy Outpatient Referral Routine S/p Left SLIM on 04/12/20 (Dr. Lay) History of total hip arthroplasty, left Ordered: 05/09/2020 documented as of this encounter Visit Diagnoses Diagnosis S/p Left SLIM on 04/12/20 (Dr. Lay) Primary localized osteoarthrosis, pelvic region and thigh History of total hip arthroplasty, left documented in this encounter Care Teams Banking Consultant Relationship Specialty Start Date End Date Alek Esparza MD [address] [place] [phone] PCP - General 09/03/10 04/05/23 documented as of this encounter
--- OUTSIDE RECORDS SUMMARY | 2024-08-29 14:13 | XMS_ITS | Encounter Summary ---
Author Organization [facility] Address [facility] [place] [address] Care Team Providers Care Vehicle Sales Professional Name Role Phone Alek Esparza MD Primary Care Provider [phone] Encounter Details Date Type Department Care Team ([facility] st Contact Info) Description 04/18/2020 [place] [phone] Francis Campos MD [facility] [place] [place] [address] Social History Tobacco Use Types Packs/Day Years [...] encounter Miscellaneous Notes * Telephone Encounter - Nancy Hobson - 04/18/2020 9:45 AM EDT LMOM to schedule void trial today (04/18) at 1pm per Love. documented in this encounter Plan of Treatment Not on file documented as of this encounter Visit Diagnoses Not on filedocumented in this encounter Care Teams Vehicle Sales Professional Relationship Specialty Start Date End Date Alek Esparza MD [address] [place] [address] PCP - General 09/03/10 04/05/23 documented as of this encounter
--- OUTSIDE RECORDS SUMMARY | 2024-08-29 14:13 | XMS_ITS | Encounter Summary ---
Author Organization [facility] [place] [address] Care Team Providers Care Occupational Health And Safety Adviser Name Role Phone Alek Esparza MD Primary Care Provider [phone] Encounter Details Date Type Department Care Team ([facility] st Contact Info) Description 09/12/2021 Telephone [place] [phone] Ashanti Mccarthy Social History Tobacco Use Types [...] on filedocumented in this encounter Care Teams Occupational Health And Safety Adviser Relationship Specialty Start Date End Date Alek Esparza MD [address] [place] [phone] PCP - General 09/03/10 04/05/23 documented as of this encounter
--- OUTSIDE RECORDS SUMMARY | 2024-08-29 14:13 | XMS_ITS | Encounter Summary ---
Author Organization [facility] [place] [address] Care Team Providers Care Environmental Scientists Name Role Phone Alek Esparza MD Primary Care Provider [phone] Reason for Referral * Consultation (Routine) - Closed Specialty Diagnoses / Procedures Referred By Contac t Referred To Contact [facility] Diagnoses Low back pain, non-specific Lumbar spondylosis Chace Murphy MD [facility] PHYSICAL [place] [address] [facility] [place] [address] Referral ID Status Reason Start Date Expiration Date Visits Requested Visits Authorized [id number] Closed Pain Interventional Procedure 03/19/2021 03/19/2022 3 3 Reason for Visit * Reason Comments Follow-up Encounter Details Date Type Department Care Team (Late st Contact Info) Description 03/19/2021 11:30 AM EDT Office Visit [place] [address] Chace Murphy MD [facility] PHYSICAL [place] [address] Low back pain, non-specific; Lumbar spondylosis; Sacroiliac joint somatic dysfunction Social History Tobacco Use Types Packs/Day Years [...] Sign Reading Time Taken Comments Blood Pressure 108/69 03/19/2021 11:24 AM EDT Pulse 60 03/19/2021 11:24 AM EDT Temperature 36.9 ??C (98.5 ??F) 03/19/2021 11:24 AM E DT Respiratory Rate - - Oxygen Saturation - - Inhaled Oxygen Concentration - - Weight 108.9 kg (240 lb) 03/19/2021 11:24 AM EDT Height 180.3 cm (5' 11) 03/19/2021 11:24 AM EDT Body Mass Index 33.47 03/19/2021 11:24 AM EDT documented in this encounter Progress Notes * Chace Murphy MD - 03/19/2021 11:30 AM EDT Chief Complaint Patient presents with ??? Follow-up Interim history: The patient returns for follow-up after completion of PT treatment. Since the last visit, he was started on sulfasalazine for treatment of inflammatory arthritis. He does not feel that the medicationhas been effective. However, he notes an overall decrease in the intensity of low back pain since the last visit here. He continues to report generalized low lumbosacral pain with occasional radiation to the buttocks. He can experience occasional right inguinal pain, as well. He reports ongoing arthralgias involving the shoulders, knees and hips. Overall pain symptoms are worst in the shoulders and low back. Pain is constant and dull in quality. It is currently graded as 3/10 in intensity. Exacerbating factors: Reaching, lifting, forward flexion, prolonged standing or ambulation and sit to stand, bed or car transfers. Shoulder pain is increased by overhead activity. Alleviating factors: Sitting and position change. Clinical materials reviewed: 1. Physical therapy reevaluation summary, 01/22/2021. The patient was clinically improved. Treatmentfrequency was decreased to 1 time per week. 2. Clinical office note of CARMELINA Lyon, 02/05/2021. The patient was placed on a trial of sulfasalazine for treatment of inflammatory arthritis. The plan was for follow-up in 2 months. Past Medical History: Diagnosis Date ??? Antiplatelet [...] Irregular heart beat Afib. Takes Eliquis ??? 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 HYDROcodone-acetaminophen (B[place]keye) 10-325 mg Tablet TAKE 2 TABLETS BY [...] Review of Systems: As above. Objective: BP 108/69 Pulse 60 Temp 36.9 ??C (98.5 ??F) (Oral) Ht 180.3 cm (5' 11) Wt 108.9 kg (240 lb) BMI 33.47 kg/m?? Obese male in no apparent distress. Alert and oriented x3. Affect is appropriate. Carmencita's signs are absent. Gait and station: Gait is antalgic on the right. The patient is able to perform bilateral toe walking. He is unable to ambulate on the heels. Right shoulder is elevated in standing. Hips and knees are flexed in standing. The patient reports generalized low lumbosacral pain at end range lumbar flexion. Pelvic alignment/motion: Standing iliac crest palpation is elevated on the right. There is right-sided tenderness with the assessment. Standing flexion test is positive on the left. Palpation: Tenderness is found over the sacrum, bilateral sacroiliac joints, right greater than left and left hip greater trochanter. Motor: 5/5 throughout the lower extremities. Sensation: Intact to light touch throughout the lower extremities. Straight leg raising: Negative bilaterally. Muscle stretch reflexes: Unobtainable throughout the lower extremities. Assessment: Encounter Diagnoses Name Primary? Low back pain, non-specific ??? Lumbar spondylosis ??? Sacroiliac joint somatic dysfunction The patient has experienced no significant improvement in his symptoms since being started on sulfasalazine for inflammatory arthritis. He reports generalized arthralgias that are most predominant inthe shoulders. He continues under rheumatological care and is scheduled for follow-up later this month. Physical examination demonstrates the presence of sacroiliac mechanical dysfunction, including pelvic obliquity and functional leg length discrepancy, as well as focal sacroiliac joint tenderness. Inan attempt to help determine the extent to which low back pain symptoms are driven by sacroiliac mechanical dysfunction, the patient was treated with manual therapy, as below: Manual therapy, using gentle muscle energy techniques, was applied to the patient's pelvis and right lower extremity by MD in the office today. The treatment was tolerated well by the patient and waswithout complication. Pelvic obliquity resolved and leg lengths were equalized following the treatment. Lumbopelvic flexibility from the standing position was noted to be bilaterally symmetric post-treatment. Low back pain decreased from a level of 4/10 pre-treatment to 2/10 post- treatment. Following the treatment, the patient reported a decrease in low back stiffness. Antalgic gait resolved post-treatment. The patient and I reviewed the likelihood that his current symptoms are multifactorial. In additionto underlying inflammatory arthritis, he has sacroiliac pain and dysfunction.I also believe that his low back pain has a facet-mediated component. We discussed the potential clinical utility of diagno stic/therapeutic sacroiliac joint steroid injection and diagnostic lumbar medial branch blocks/RFA. Following our discussion, we agreed to proceed with diagnostic lumbar medial branch blocks. Referral has been made to Pain Management. Bilateral L3, L4 and L5-DR injections have been requested. Plan: 1. Diagnostic lumbar medial branch blocks, as above. 2. Rheumatological follow-up, as planned. 3. Follow-up with me 1 month post-RFA. Total time spent on date of encounter (minus manual therapy) = 39 minutes. Chace Murphy MD, MS 03/19/2021 documented in this encounter Plan of Treatment Scheduled Referrals Name Type Priority Associated Diagnoses Orde r Schedule Referral to Pain and Spine Center (Internal only) Outpatient Referral Routine Low back pain, non-specific Lumbar spondylosis Ordered: 03/19/2021 documented as of this encounter Visit Diagnoses Diagnosis Low back pain, non-specific Lumbar spondylosis Lumbosacral spondylosis without myelopathy Sacroiliac joint somatic dysfunction Nonallopathic lesion of sacral region, not elsewhere classified documented in this encounter Care Teams Environmental Scientists Relationship Specialty Start Date End Date Alek Esparza MD [address] [place] [phone] PCP - General 09/03/10 04/05/23 documented as of this encounter
--- OUTSIDE RECORDS SUMMARY | 2024-08-29 14:13 | XMS_ITS | Encounter Summary ---
Author Organization [facility] [place] [address] Care Team Providers Care Residential Insurance Inspector Name Role Phone Alek Esparza MD Primary Care Provider [phone] Reason for Visit * Reason Comments Follow-up Encounter Details Date Type Department Care Team (Late st Contact Info) Description 07/17/2021 9:00 AM EDT Office [place] [phone] Baldomero Neal PA [address] [place] [address] Inflammatory arthritis (Primary Dx); Arthralgia, unspecified joint; Medication monitoring encounter; Tophaceous gout; History of lumbar surgery; Positive MICHI (antinuclear antibody) Social History Tobacco Use Types Packs/Day Years [...] Sign Reading Time Taken Comments Blood Pressure 109/76 07/17/2021 8:58 AM EDT Pulse 66 07/17/2021 8:58 AM EDT Temperature 36.4 ??C (97.6 ??F) 07/17/2021 8:58 AM ED T Respiratory Rate 16 07/17/2021 8:58 AM EDT Oxygen Saturation 97% 07/17/2021 8:58 AM EDT Inhaled Oxygen Concentration - - Weight 114.4 kg (252 lb 3.2 oz) 07/17/2021 8:58 AM EDT Height 180.3 cm (5' 11) 07/17/2021 8:58 AM EDT Body Mass Index 35.17 07/17/2021 8:58 AM EDT documented in this encounter Patient Instructions * Patient Instructions* Baldomero Neal PA - 07/17/2021 9:00 AM EDT D/c SSS- ineffective Trial Cymbalta 30 mg QHS Follow up in 4 week documented in this encounter Progress Notes * Baldomero Neal PA - 07/17/2021 9:00 AM EDTSummary: [place]/Gout Rheumatology Outpatient Note Chart review conducted prior [...] presents today for evaluation of Gout and inflammatory arthritis. Impression/Recommendations : Enoc Esteban is a 61 y.o. male who presents today with a history of Gout and inflammatory arthritis on a trial of sulfasalazine 500 mg bid thus far without significant relief of sx. After a review of his options patient elected to increase SSS to 1,000 mg bid, repeat labs in 4 weeks. Follow up 2 months sooner if required patient in agreement. Interval History: Patient presents today for follow-up he has a history of steroid responsive arthralgias prednisone makes him feel significantly better he has been on a trial of sulfasalazine at his last visit we increased the dose to 1000 mg twice daily it did not confer benefit he continues to have ongoing arthralgias he denies any episodes of gout. He finds his shoulders both fairly bothersome left shoulder worse than right he is planning on going to physical therapy for his back and his shoulders in the next several weeks he has a long history of back pain. He denies any red warm swollen joints fevers infectious-like symptoms. He endorses alcohol use. He denies any other major changes in his health. Review of Systems Constitutional: Negative for anorexia, diaphoresis and absenteeism. Respiratory: Negative for cough, shortness of breath, chest discomfort, orthopnea and pleuritic pain. Gastrointestinal: Negative for steatorrhea, diarrhea and trouble swallowing. HENT: Negative. Psychiatric/Behavioral: Negative. Hematologic/Lymphatic: Negative. Allergic/Immunologic: Negative for recurrent [...] ??? sulfaSALAzine (Azulfidine) 500 mg Tablet Take 2 tablets by mouth 2 times daily. 360 tablet 0 ??? sulfaSALAzine (Azulfidine EN-tabs) 500 mg Tablet, Delayed Release (E.C.) Take 2 tablets by mouth 2 times daily. 120 tablet 1 ??? hydrOXYzine (ATARAX) 50 mg Tablet TAKE ONE TABLET BY MOUTH EVERY DAY AT DINNER ??? traZODone (Desyrel) 50 mg Tablet TAKE ONE TABLET BY MOUTH AT BEDTIME ??? HYDROcodone-acetaminophen (Parnell) 10-325 mg Tablet TAKE 2 TABLETS BY [...] PHALANGES performed by Rohan Duarte MD at [facility] ??? PRO LAMINOTOMY, LUMBAR DISK, 1 INTRSP N/A 10/25/2019 LAMINOTOMY, DECOMPRESSION, FORAMINOTOMY, LUMBAR (WRVU 13.18) [facility] ??? PRO MICROSURG TECHNIQUES, REQ OPER MICROSCOPE N/A 10/25/2019 MICROSCOPE USE (WRVU 3.46) performed by Denzel Madison MD at [facility] MAIN OR ??? PRO REMOVAL OF ELBOW BURSA Right 10/16/2014 EXCISION OF OLECRANON BURSA performed by Anupama Howard MD at [facility] ??? PRO TOTAL HIP ARTHROPLASTY Left 04/12/2020 TOTAL HIP ARTHROPLASTY, ANTERIOR APPROACH (WRVU 20.72) performed by Isidoro Lay MD at [facility] MA[facility] OR Physical Examination: BP 109/76 Pulse 66 Temp 36.4 ??C (97.6 ??F) (Temporal) Resp 16 Ht 180.3 cm (5' 11) Wt 114.4 kg (252 lb 3.2 oz) SpO2 97% BMI 35.17 kg/m?? Musculoskeletal: No joint effusions noted Tender shoulder abduction bilaterally Osteoarthritic features throughout Physical Exam Constitutional: General: He is not in acute distress. Appearance: He is normal weight. He is not ill-appearing, toxic-appearing or diaphoretic. HENT: Head: Normocephalic and atraumatic. Right Ear: External ear normal. Left Ear: External ear normal. Nose: Nose normal. Eyes: General: No scleral icterus. Right eye: No discharge. Left eye: No discharge. Conjunctiva/sclera: Conjunctivae normal. Cardiovascular: Rate and Rhythm: Regular rhythm. Heart sounds: No friction rub. No gallop. Pulmonary: Effort: Pulmonary effort is normal. No respiratory distress. Breath sounds: Normal breath sounds. No stridor. No wheezing or rhonchi. Chest: Chest wall: No tenderness. Abdominal: Palpations: Abdomen is soft. Tenderness: There is no rebound. Musculoskeletal: General: No deformity or signs of injury. Right lower [...] Data: Component Latest Ref Rng & Units 04/16/2021 Glucose Lvl 65 - 199 mg/dL 93 BUN 10 - 20 mg/dL 16 Creatinine 0.80 - 1.50 mg/dL 1.29 Sodium 135 - 145 mmol/L 137 Potassium 3.5 - 5.0 mmol/L 4.7 Chloride 98 - 107 mmol/L 103 CO2 22 - 31 mmol/L 24 Anion Gap 5 - 15 mmol/L 10 Calcium 8.5 - 10.5 mg/dL 9.4 Total Protein 6.1 - 8.0 gm/dL 6.8 Albumin 3.2 - 5.2 gm/dL 4.2 AST 0 - 39 unit/L 29 ALT 0 - 55 unit/L 42 Alk Phos 40 - 130 unit/L 53 Total Bilirubin 0.2 - 1.3 mg/dL 0.4 Estimated GFR >=60 mL/min/1.73 m?? 60 WBC 4.0 - 9.5 x10(3)/mcL 7.5 RBC 4.58 - 5.54 x10(6)/mcL 4.06 (L) Hemoglobin 13.7 - 16.5 gm/dL 13.4 (L) Hematocrit 40.5 - 48.5 % 40.1 (L) MCV 82.9 - 93.1 fL 98.8 (H) MCH 27.5 - 32.1 pg 33.0 (H) MCHC 32.0 - 35.7 gm/dL 33.4 Platelets 145 - 357 x10(3)/mcL 242 RDWSD 36.0 - 45.0 fL 45.4 (H) RDWCV 11.4 - 13.8 % 12.4 MPV 7.6 - 12.9 fL 9.9 nRBC % Auto % 0.0 nRBC Abs Auto 0.000 - 0.000 x10(3)/mcL 0.000 Neutrophils % % 37.2 Neutr Abs (ANC) 1.70 - 6.10 x10(3)/mcL 2.78 Lymphocytes % % 47.3 Lymphocytes Abs 0.9 - 3.2 x10(3)/mcL 3.5 (H) Monocytes % % 11.0 Monocyte Abs 0.3 - 0.9 x10(3)/mcL 0.8 Eosinophils % % 3.3 Eosinophils Abs 0.0 - 0.4 x10(3)/mcL 0.2 Basophils % % 1.1 Basophils Abs 0.0 - 0.1 x10(3)/mcL 0.1 Immature Gran % % 0.10 Lou Gran Abs 0.00 - 0.04 x10(3)/mcL 0.01 CRP <=4.9 mg/L <3.0 Sed Rate 2 - 37 mm/hr 5 Impression/Recommendations : Enoc Esteban is a 61 y.o. male who presents today with history of gout osteoarthritis and steroid responsive arthralgias patient having failed a trial of sulfasalazine. After review of his options he elected for treatment for osteoarthritis utilizing Cymbalta 30 mg/day, given no response to sulfasalazine he may be getting a response with steroids for osteoarthritis rather than inflammatory arthritis. We will discontinue sulfasalazine. He has no findings on exam suggestive of inflammatory arthritis today he is complaining of left shoulder arthralgias. After review of his options he elected for an interarticular injection of the left shoulder using sterile technique the shoulder was preparedwith Betadine and alcohol and 40 mg of Depo-Medrol quarter cc of plain lidocaine was successfully injected utilizing a 25-gauge needle in the subacromial space there was no complication and he was made aware of the post injection course immediate hemostasis was obtained. We will see him again in follow-up in about 2 months sooner for any problems patient in agreement with this plan. 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
--- OUTSIDE RECORDS SUMMARY | 2024-08-29 14:13 | XMS_ITS | Encounter Summary ---
[place] [address] Care Team Providers Care Medical Imaging Technician Name Role Phone Alek Esparza MD Primary Care Provider [phone] Reason for Visit * Reason Onset Date Comments Medication Refill 04/22/2021 Medication Refill 04/23/2021 Encounter Details Date Type Department Care Team (Late st Contact Info) Description 04/22/2021 [place] [address] James Salsa RN Social History Tobacco Use Types Packs/Day [...] as of this encounter Miscellaneous Notes * Addendum Note - James Salas RN - 04/23/2021 1:57 PM EDTAddended by: JAMES SALAS on: 04/23/2021 01:57 PM Modules accepted: Orders * Telephone Encounter - James Salas RN - 04/22/2021 10:37 AM EDT Patient states was told by pharmacy no rx received. Appears rx sent on 04/16/21 Called pharmacy to clarify, no one available. Left vm with call back number. documented in this encounter Plan of Treatment Not on file documented as of this encounter Visit Diagnoses Not on filedocumented in this encounter Care Teams Medical Imaging Technician Relationship Specialty Start Date End Date Alek Esparza MD [address] [place] [phone] PCP - General 09/03/10 04/05/23 documented as of this encounter
--- OUTSIDE RECORDS SUMMARY | 2024-08-29 14:13 | XMS_ITS | Encounter Summary ---
Author Organization Formerly [facility] [place] [address] Care Team Providers Care Financial Compliance Manager Name Role Phone Alek Esparza MD Primary Care Provider [phone] Reason for Visit * Auth/Cert Specialty Diagnoses [...] Expiration Date Visits Re quested Visits Authorized [id number] 1 1 Encounter Details Date Type Department Care Team (Late st Contact Info) Description 04/02/2021 10:30 AM EDT - 04/02/2021 11:15 AM EDT [place] [phone] Imer Monet MD [facility] [place] [address] Not Performed INJECTION, FACET JOINT, W\FLUORO, LUMBAR, SINGLE (WRVU 1.52) Social History Tobacco Use Types Packs/Day Years [...] this encounter Discharge Instructions * Discharge Instructions* Greer Mynor A - 04/02/2021 11:24 AM EDT Pain Management Center Discharge Instructions: You were seen today by Surgeon(s): Imer Monet MD Shah, MD Julian Ritter Quyen V, MD The following was performed: Procedure(s) (LRB): [...] 4-6 hours after your procedure. {CHECK BOX SELECTION:01994} If you have diabetes, monitor your blood [...] Post -Procedure Pain Log Patient: Enoc Esteban [id number] documented in this encounter Medications at Time of Discharge Medication Sig Dispensed Refills Start Date End Date traZODone (Desyrel) 50 mg Tablet TAKE ONE TABLET BY MOUTH AT BEDTIME 10/13/2020 HYDROcodone-acetaminoph en (Wilmot) 10-325 mg Tablet TAKE 2 TABLETS BY [...] PHALANGES performed by Rohan Duarte MD at [facility] ??? PRO LAMINOTOMY, LUMBAR DISK, 1 INTRSP N/A 10/25/2019 LAMINOTOMY, DECOMPRESSION, FORAMINOTOMY, LUMBAR (WRVU 13.18) performed by Denzel Madison MD at [facility] OR ??? PRO MICROSURG TECHNIQUES, REQ OPER MICROSCOPE N/A 10/25/2019 MICROSCOPE USE (WRVU 3.46) performed by Denzel Madison MD at [facility] OR ??? PRO REMOVAL OF ELBOW BURSA Right 10/16/2014 EXCISION OF OLECRANON BURSA performed by Anupama Howard MD at [facility] ??? PRO TOTAL HIP ARTHROPLASTY Left 04/12/2020 TOTAL HIP ARTHROPLASTY, ANTERIOR APPROACH (WRVU 20.72) performed by Isidoro Lay MD at [facility] OR ALLERGIES: Allopurinol MEDICATIONS: No current [...] TABLET BY MOUTH AT BEDTIME ??? HYDROcodone-acetaminophen (Wilmot) 10-325 mg Tablet TAKE 2 TABLETS BY [...] lumbar medial branch block bilateral L3, L4, L5-DRCleo Addressed all questions and concerns. Risks and benefits discussed with patient. No contraindications to the procedure at thistime, will proceed. Stone Khoury MD Pain Management Fellow [facility] [address] [phone] [email or web address] documented in this encounter Miscellaneous Notes * Op Note - Imer Monet MD - 04/02/2021 11:07 AM EDT Pain Management Operative Note Patient Name: Enoc Esteban : [id number] MR#: [id number] Case Date: 04/02/2021 Surgeon: Surgeon(s) and Role: [...] entire procedure. Imer Monet MD Attending Physician [facility] [address] [address] / CC: Alek Esparza MD [address] [place] [phone] documented in this encounter Plan of Treatment Not on file documented as of this encounter Procedures Procedure Name Priority Date/Time Associated Diagnosis Comments FILM LIBRARY STORAGE ONLY PAIN CLINIC C ARM Routine 04/02/2021 4:11 PM EDT Pain documented in this encounter Results * Film Library- Storage Only pain Clinic C-Arm (04/02/2021 4:11 PM EDT) Narrative [facility] - 04/02/2021 4:11 PM EDT See PACS for result report. Imer Monet MD [facility] [place] LIBRARY ORD ERABLES Performing Organization Address City/State/[facility] Co de Phone Number [place], [place] documented in this encounter Visit Diagnoses Not on filedocumented in this encounter Administered Medications Inactive Administered Medications - up to 3 most recent administrations Medication Order MAR Action Action Date Dose Rate Site iohexoL (Omnipaque) (240 mg/mL) injection solution ONCE PRN, Starting on Thu04/02/21 at 1110, Until Thu04/02/21 at 1329, Intra-Operative (Intra-Procedure), Routine Given 04/02/2021 11:10 AM EDT 3 mLs lidocaine (pf) (Xylocaine) (20 mg/mL) 2% injection ONCE PRN, Starting on Thu04/02/21 at 1110, Until Thu04/02/21 at 1329, Intra-Operative (Intra-Procedure), Routine Given 04/02/2021 11:10 AM EDT 6 mLs documented in this encounter Active and Recently Administered Medications Times are shown in EDT. PRN Medication Order 03/31/2021 04/01/2021 04/02/2021 iohexoL (Omnipaque) (240 mg/mL) injection solution (CANCELED) ONCE PRN, Starting on Thu04/02/21 at 1110, Until Thu04/02/21 at 1329, Intra-Operative (Intra-Procedure), Routine 1110 (Given - Provid er: Stone Khoury MD) lidocaine (pf) (Xylocaine) (20 mg/mL) 2% injection (CANCELED) ONCE PRN, Starting on 04/02/21 at 1110, Until 04/02/21 at 1329, Intra-Operative (Intra-Procedure), Routine 1110 (Given - Provid er: Stone Khoury MD) documented in this encounter Care Teams Financial Compliance Manager Relationship Specialty Start Date End Date Alek Esparza MD [address] [place] [phone] PCP - General 09/03/10 04/05/23 documented as of this encounter
--- OUTSIDE RECORDS SUMMARY | 2024-08-29 14:13 | XMS_ITS | Encounter Summary ---
Author Organization [facility] [place] [address] Care Team Providers Care Oil Recovery Unit Operator Name Role Phone Alek Esparza MD Primary Care Provider [phone] Reason for Visit * Auth/Cert Specialty Diagnoses / Procedures Referred By Contyosvany t Referred To Contact Diagnoses Left Hip DJD Procedures PRO TOTAL HIP ARTHROPLASTY TOTAL HIP ARTHROPLASTY, ANTERIOR APPROACH (WRVU 20.72) Referral ID Status Reason Start Date Expiration Date Visits Re quested Visits Authorized [id number] 1 1 Encounter Details Date Type Department Care Team (Late st Contact Info) Description 04/12/2020 12:17 PM EDT - 04/13/2020 2:19 PM EDT Hospital Encounter [address] [place] [address] Isidoro Lay MD [facility] [place] [address] S/p Left SLIM on 04/12/20 (Dr. Lay) Discharge Disposition: Home Social History Tobacco Use [...] Sign Reading Time Taken Comments Blood Pressure 134/85 04/13/2020 12:00 PM EDT Pulse 76 04/13/2020 1:06 AM EDT Temperature 36.5 ??C (97.7 ??F) 04/13/2020 12:00 PM E DT Respiratory Rate 16 04/13/2020 12:00 PM EDT Oxygen Saturation 97% 04/13/2020 12:00 PM EDT Inhaled Oxygen Concentration - - Weight 111.6 kg (246 lb) 04/13/2020 1:06 AM EDT Height 180.3 cm (5' 10.98) 04/13/2020 1:06 AM E DT Body Mass Index 34.33 04/13/2020 1:06 AM EDT documented in this encounter Discharge Summaries * Larry Owen MD - 04/13/2020 1:07 PM EDT Images from the original note were not included. Discharge Summary Patient Name: Enoc Esteban Patient Age: 60 y.o. Language: Albanian Race: White Ethnicity: Not nor Admit date: 04/12/2020 Discharge date and time: 04/13/2020 Attending Physician: Isidoro Lay MD Discharge Physician: Isidoro Lay MD Follow-up Recommendations for Providers: See discharge instructions for additional details. Future Appointments Date Time Provider Department Center 05/09/2020 1:30 PM [facility] DX ROOM 3 Xray [facility] Rad 05/09/2020 2:30 PM Isidoro Lay MD [facility] ORTH 3C [facility] Inpatient Provider Contact Information: Isidoro Lay MD Orthopedics: [phone] After hours and weekends, call [facility] Domestic Laundry Worker, , and have the Orthopedic resident paged. Discharge Diagnoses (Hospital Problems) and Secondary Diagnoses (Chronic Problems): Active Hospital Problems Diagnosis ??? S/p Left SLIM on 04/12/20 (Dr. Lay) ??? Status post total hip replacement, left Resolved Hospital Problems No resolved problems to display. Active Non-Hospital Problems Diagnosis ??? Obesity (BMI 30.0-34.9) ??? History of cervical spinal surgery ??? History of lumbar surgery ??? Lumbar radiculopathy ??? Atrial fibrillation ??? Radiculopathy of cervical region ??? HTN (hypertension) ??? Tophaceous gout ??? Hyperuricemia ??? Mild vitamin D deficiency ??? Moderate asthma ??? TYRON (obstructive sleep apnea) Operations/Major Procedures: 04/12/2020 Surgeon(s) and Role: * Isidoro Lay MD - Primary * Timothy Oviedo MD - Resident Procedure(s): TOTAL HIP ARTHROPLASTY, ANTERIOR APPROACH (WRVU 20.72) MODIFIER,AMIS P HIP STEM,MEDACTA MODIFIER,MPACT CUP,MEDACTA HPI: Enoc Esteban is a 60 y.o. male with a history of A. fib on Eliquis, hypertension, asthma, gout, and obstructive sleep apnea who presented for surgical management of left hip pain after failing nonsurgical treatment. Patient was admitted on 04-12-2020 left total hip arthroplasty with Dr. Lay. The patient was consented and taken the operating room for surgical management. Hospital Course: Enoc Esteban was taken to the operating room where the above procedures were performed. He tolerated the operation well and without complication. He was admitted post-operatively for observation andmanagement. He had a BM on 04/12/20 and taking po without difficulty. The patient's hospital course was complicated with urinary retention for which a Reese was placed by the urological surgical service. Urology service will plan for follow-up and voiding trial to remove the Reese. Otherwise the patient was deemed safe for discharge after clearing physical therapy on postop day #1. Hospital Consults: Urology - reese placement and urinary retention Vital Signs at Discharge: Weight: Wt Readings from Last 1 Encounters: 04/13/20 111.6 kg (246 lb) Height: Ht Readings from Last 1 Encounters: 04/13/20 180.3 cm (5' 10.98) HC: HC Readings from Last 1 Encounters: No data found for HC BMI: Body mass index is 34.33 kg/m??. Last value Range last 24 hrs Temperature Temp: 36.5 ??C (97.7 ??F) Temp: [36.2 ??C (97.2 ??F)-36.7 ??C (98.1 ??F)] Heart Rate Heart Rate: 76 Heart Rate: [71-95] Blood Pressure BP: 134/85 BP: (110-152)/(65-94) Respiratory Rate Resp: 16 Resp: [11-] SpO2 SpO2: 97 % SpO2: [93 %-100 %] Art BP BP (Arterial Line): -- Functional and Cognitive Status: Patient mobilizing with walker, cognitively intact at baseline mental status at time of discharge. Important Lab Data: Last 3 wbc, hgb, hct plt Recent Labs 04/13/20 0339 03/23/20 1429 WBC 15.9* 7.2 HGB 13.1* 15.0 HCT 38.8* 47.0 PLATELET 218 272 Last 3 Lytes Recent Labs 04/13/20 0339 03/23/20 1429 NA 133* 138 K 5.2* 4.6 CL 99 102 CO2 25 26 BUN 11 15 CREATININE 1.09 1.37 Last 3 Coags No results for input(s): PT, INR, PTT in the last 168 hours. Pending Lab Data at Discharge: n/a Studies: Xr Pelvis Result Date: 04/12/2020 EXAMINATION: XR PELVIS (GENERIC) CLINICAL HISTORY: s/p L SLIM Assess for position of L SLIM TECHNIQUE: 1 views of the pelvis COMPARISON: Intraoperative radiographs, April 12, 2020. FINDINGS: A new left hip arthroplasty is present. Alignment: The prosthesis is unchanged in alignment when compared to the intraoperative images. Complication: There is no loosening or fracture. Soft tissues: Expected early postsurgical air around the left hip joint. Impression Newly placed and uncomplicated left total hip arthroplasty. Thank you for letting us participate in the care of this patient. For questions regarding this report, please contact the number below. Transfusions: No Exam: Temp: [36.2 ??C (97.2 ??F)-36.7 ??C (98.1 ??F)] Heart Rate: [71-95] Resp: [11-22] BP: (110-152)/(65-94) SpO2: [93 %-100 %] Heart Rate from SpO2: [66 bpm-100 bpm] I/O last 3 completed shifts: In: 2680 [P.O.:480; I.V.:2000; IV Piggyback:200] Out: 2200 [Urine:1850; Blood:350] I/O this shift: In: 732 [P.O.:610; I.V.:122] Out: 1625 [Urine:1625] Discharge Conditions/Prognosis: Stable, awake, and alert. Mobilizing as noted above, pain controlled on oral medications. Discharge to: Home Updated Allergies/ADRs: Allergies Allergen Reactions ??? Allopurinol Rash Immunizations Given this Hospitalization: Immunization History Administered Date(s) Administered ??? Influenza Vaccine w/Preservative, Split 07/25/2013 Discharge Medications: Your Medications New Medications Dose Details naproxen 500 mg Tbec Commonly known as: EC NAPROSYN Take 1 tablet by mouth 2 times daily (with meals) for 42 days. 500 mg Quantity: 84 tablet Refills: 0 omeprazole 20 mg Tbec Commonly known as: PriLOSEC OTC Take 1 tablet by mouth daily. 20 mg Refills: 0 oxyCODONE 5 mg Tab Commonly known as: Roxicodone Take 1 tablet by mouth every 4 hours as needed for Pain. Take the smallest dose possible to controlyour pain. 5 mg Quantity: 70 tablet Refills: 0 Continued medications with new dosing Dose Details acetaminophen 500 mg Tab Commonly known as: Tylenol Take 2 tablets by mouth every 8 hours. Take as directed around the clock for ten days after your surgery. After that you can take Tylenol as needed per package insert. What changed: ?? medication strength ?? how much to take ?? when to take this ?? reasons to take this ?? additional instructions 1,000 mg Refills: 0 Eliquis 5 mg Tab Resume 10 days after surgery. Generic drug: apixaban What changed: ?? how much to take ?? how to take this ?? when to take this ?? additional instructions Refills: 6 * gabapentin 100 mg Cap Commonly known as: Neurontin Take 1 capsule three times daily x7 days, then take 2 capsules three times daily x7 days, then take3 capsules three times daily What changed: ?? how much to take ?? how to take this ?? when to take this Quantity: 90 capsule Refills: 12 * gabapentin 300 mg Cap Commonly known as: Neurontin Take 1 capsule by mouth nightly for 28 days. What changed: You were already taking a medication with the same name, and this prescription was added. Make sure you understand how and when to take each. 300 mg Quantity: 28 capsule Refills: 0 * This list has 2 medication(s) that are the same as other medications prescribed for you. Read thedirections carefully, and ask your doctor or other care provider to review them with you. Continued medications, unchanged Dose Details Ambien 10 mg Tab Take 10 mg by mouth nightly as needed. Generic drug: zolpidem 10 mg Refills: 0 cyclobenzaprine 10 mg Tab Commonly known as: Flexeril TAKE ONE TABLET BY MOUTH THREE TIMES A DAY DIRECTED Refills: 0 febuxostat 40 mg Tab Commonly known as: Uloric Take 1 tablet by mouth daily. 40 mg Quantity: 90 tablet Refills: 3 ipratropium-albuteroL 20-100 mcg/actuation Mist Commonly known as: COMBIVENT RESPIMAT Inhale 1 puff into the lungs as needed for Wheezing. 1 puff Refills: 0 ketoconazole 2 % Crea Commonly known as: NIZORAL APPLY TO THE AFFECTED AREA S TOPICALLY EVERY DAY DIRECTED Refills: 0 losartan 50 mg Tab Commonly known as: Cozaar Take 1 tablet by mouth daily. 50 mg Quantity: 30 tablet Refills: 5 metoprolol succinate XL 50 mg Tablet sr Commonly known as: Toprol-XL Take 1 tablet by mouth daily. 50 mg Quantity: 90 tablet Refills: 3 predniSONE 10 mg Tab Commonly known as: Deltasone TAKE THREE TABLETS BY MOUTH EVERY DAY FOR 3 DAYS THEN TAKE TWO TABLETS BY MOUTH EVERY DAY FOR 3 DAYS THEN TAKE ONE TABLET BY MOUTH EVERY DAY Refills: 0 Viagra 100 mg Tab TAKE 1 TABLET BY MOUTH DAILY NEEDED MAX OF 1 TABLET IN 24 HOURS Generic drug: sildenafiL Refills: 12 vitamin D 50,000 unit Cap Take 50,000 Units by mouth every 14 days. Generic drug: ergocalciferoL (vitamin D2) 50,000 Units Refills: 3 STOPPED Medications HYDROcodone-acetaminophen 10-325 mg Tab Commonly known as: [place] ibuprofen 800 mg Tab Commonly known as: Advil;Motrin Smoking Status at Discharge: Social History Tobacco Use Smoking Status Never Smoker Smokeless Tobacco Never Used Instructions for Rehab Providers or PCP: Please see patient discharge instructions. Instructions Given to Patient at Discharge: Patient Instructions Activity: 1. Your weight-bearing status is - weight bearing as tolerated of left leg. 2. Remember to use a walker or crutches as needed for balance and protection. Your physical therapist may progress you to using a cane when appropriate. 3. Remember your hip precautions: Standard: You should transition from sit to stand and stand to sit utilizing a broad based stance with feet and knees wider than hips. Anti-coagulation: You have been discharged on Eliquis 2.5mg twice a day for 2 days, then you may begin your home regimen on Eliquis 5mg twice daily beginning on Thursday04/15/20. Diet: Resume your usual diet but increase your intake of fluids and fiber while you are on narcoticpain meds to prevent constipation. Driving: None until you are cleared to do so by your Orthopedic surgeon. You should not drive whileyou are on narcotic pain meds as they can affect your judgment and reaction time. Call your surgeonwith any questions/concerns. Medications: 1. The pain medication you are on can cause constipation so increase your intake of fluids and fiber while you are on them. The stool softener, Pericolace, that has been prescribed can also be taken to facilitate a bowel movement. You can also take an tbme-rkd-jkcbenj medication, Miralax if needed to combat constipation. 2. If you need a renewal on your narcotic pain medication, you need to give the Orthopedic clinic enough time to process your request. This can take up to three days, so plan accordingly. 3. Continue acetaminophen (Tylenol) 1,000mg every 8 hours around the clock until 04/22/20 (for ten days after your surgery). This can be effective in controlling pain along with your other medications. After that you can take Tylenol as needed per package insert. Do not take more than 3,000mg of acetaminophen in a 24 hour period. 4. You have been discharged on a short acting narcotic, Oxycodone. You will be on this medication for a limited period of time only. Take the smallest dose possible to control your pain. As your painimproves take smaller, less frequent doses. You may break the tablet to achieve a smaller dose. 5. You are being discharged on prescription strength naproxen (Aleve). This medication is a type ofnonsteroidal anti-inflammatory (NSAID). This will help with your pain and inflammation. Take this twice a day for the next 6 weeks. Your last dose will be on 05/24/20. If you no longer are requiring the narcotic pain medication you may change the way you take the prescribed naproxen and instead taketwice a day as needed. 6. You are being discharged on a proton pump inhibitor (Protonix). This will decrease stomach irritation that may be caused by NSAIDs. Take this daily for the next 6 weeks while you are on the NSAID. 7. You are being discharged on gabapentin (Neurontin), a non-narcotic medication that will help with your pain at night and allow you to sleep better. Take this at night for the next 4 weeks. Shower (internal sutures): 1. You can shower but remember your activity limitations and always have a chair available for balance and protection. DO NOT submerge the dressing/incision. 2. (Mepilex) Do not let water run over the operative dressing. If it becomes wet lightly pat the dressing dry. DO NOT submerge the incision. When this operative dressing is removed you can let water gently run over the incision. Wound (Mepilex): 1. You do NOT have any external ishmael or sutures in place. Your sutures are internal and will be absorbed over time. 2. You have a Mepilex dressing in place. Do not lift the edge of the Mepilex dressing to inspect the incision, it will not re-adhere. Remove your operative dressing 7 days after your surgery (04/19/20). When it is removed you can leave the incision open to air or cover it with a light dressing. Some patients have an additional item called Dermabond on their skin. If you have this it will appear as a purple skin glue, it will fall off on its own. 3. If you have lots of drainage when you get home (and it is before 04/19/20), remove the operative dressing and replace it with dry sterile gauze. Continue with daily dressing changes (and as needed) until the drainage stops, then remove the dressing and leave the incision open to air or lightly covered. Misc: Remember that ICE and elevation are very important after surgery to help decrease swelling and control pain. Use ICE for 20-30 minutes at a time and keep your leg elevated as much as possible. Call your doctor ([phone]) if you develop: 1. Fever greater than 100.5 2. Severe nausea or vomiting 3. Increasing pain that is not controlled by pain medications 4. Increasing redness, swelling, or drainage from incisions 5. Change in sensation FOLLOW-UP APPOINTMENTS: 1. You will have follow-up appointments at [facility] as indicated below in Future Appointment and Orders. 2. You will need to have x-rays prior to your follow-up appointment. [facility] that appointment for these x-rays. Future Appointments Date Time Provider Department Center 05/09/2020 1:30 PM [facility] DX ROOM 3 Xray [facility] Rad 05/09/2020 2:30 PM Isidoro Lay MD [facility] ORTH [address] [place] [address] If you have questions or concerns: Thursday through Thursday, 8 AM - 5 PM, please call Dr. Isidoro Lay MD's office at . If it is after 5 PM, the weekend, or holidays, please call and ask to speak with theOrthopedic resident on-call. General Instructions Call your doctor for: ??? fevers greater than 100.5 ??? severe nausea or vomiting ??? increasing pain not controlled by pain medications ??? decreased urine output or if your catheter is no longer draining. The number for questions is [phone] before 5 PM weekdays and [phone] after 5 PM and weekends. Activity level: As tolerated Reese Catheter: Your catheter will stay in until early next week - about 5 days total. You will likely have some blood in your urine. However, if you are passing large amounts of blood clots, bright red blood or your catheter stops draining urinate please call our office at [phone] before 5PM or [phone] after hours. Keep the catheter in place and attached to a gravity drainage bag (large or leg bag). Driving: No driving while still taking opioid pain medications (wait at least 6- 8 hours since last dose). No driving if you are still sore from surgery as it may limit your ability to react quickly if necessary. Follow up Appointments: Follow-up appointment will be scheduled for catheter removal next week In the [facility] urology clinic (5B). Please call [phone] (clinic number for appointments) to confirm date and time of your appointment if you do not receive it on Thursday. Future Appointments and Orders Future Appointments and Orders Future Appointments Provider Department Dept Phone 05/09/2020 1:30 PM [facility] DX ROOM 3 XRay at [facility] Arrive at: Director Of Sales And Marketing Area 3T [phone] Please go to Director Of Sales And Marketing Area 3T ([place] Location). 05/09/2020 2:30 PM Isidoro Lay MD Orthopaedics at [facility] Arrive at: Director Of Sales And Marketing Area 3C [phone] Future Orders Complete By Expires Walker rolling [EQ134 Custom] As directed Process Instructions: Scheduling Instructions: Comments: Enoc Esteban [address] [place] [phone] (home) Telephone Information: Diagnosis: Status post left total hip replacement with unsteady gait Patient's: Hgt: 180.3cm Wgt: 111.6 VENDOR: [facility] Located @ [facility] Center [place], [place] Ordering: Front wheel walker Deliver to 's hospital room #: 311B Questions: Vendor Name/Contact information: [facility] Primary Care Provider: Alek Esparza MD [phone] Discharge References/Attachments None documented in this encounter Discharge Instructions * Discharge Instructions* Francis Campos - 04/13/2020 12:53 PM EDT Call your doctor for: ??? fevers greater than 100.5 ??? severe nausea or vomiting ??? increasing pain not controlled by pain medications ??? decreased urine output or if your catheter is no longer draining. The number for questions is [phone] before 5 PM weekdays and [phone] after 5 PM and weekends. Activity level: As tolerated Reese Catheter: Your catheter will stay in until early next week - about 5 days total. You will likely have some blood in your urine. However, if you are passing large amounts of blood clots, bright red blood or your catheter stops draining urinate please call our office at [phone] before 5PM or [phone] after hours. Keep the catheter in place and attached to a gravity drainage bag (large or leg bag). Driving: No driving while still taking opioid pain medications (wait at least 6- 8 hours since last dose). No driving if you are still sore from surgery as it may limit your ability to react quickly if necessary. Follow up Appointments: Follow-up appointment will be scheduled for catheter removal next week In the [facility] urology clinic (5B). Please call [phone] (clinic number for appointments) to confirm date and time of your appointment if you do not receive it on Thursday. * Patient Instructions* Larry Owen MD - 04/12/2020 5:05 PM EDT Activity: 1. Your weight-bearing status is - weight bearing as tolerated of left leg. 2. Remember to use a walker or crutches as needed for balance and protection. Your physical therapist may progress you to using a cane when appropriate. 3. Remember your hip precautions: Standard: You should transition from sit to stand and stand to sit utilizing a broad based stance with feet and knees wider than hips. Anti-coagulation: You have been discharged on Eliquis 2.5mg twice a day for 2 days, then you may begin your home regimen on Eliquis 5mg twice daily beginning on Thursday04/15/20. Diet: Resume your usual diet but increase your intake of fluids and fiber while you are on narcoticpain meds to prevent constipation. Driving: None until you are cleared to do so by your Orthopedic surgeon. You should not drive whileyou are on narcotic pain meds as they can affect your judgment and reaction time. Call your surgeonwith any questions/concerns. Medications: 1. The pain medication you are on can cause constipation so increase your intake of fluids and fiber while you are on them. The stool softener, Pericolace, that has been prescribed can also be taken to facilitate a bowel movement. You can also take an vonj-glu-gubuklp medication, Miralax if needed to combat constipation. 2. If you need a renewal on your narcotic pain medication, you need to give the Orthopedic clinic enough time to process your request. This can take up to three days, so plan accordingly. 3. Continue acetaminophen (Tylenol) 1,000mg every 8 hours around the clock until 04/22/20 (for ten days after your surgery). This can be effective in controlling pain along with your other medications. After that you can take Tylenol as needed per package insert. Do not take more than 3,000mg of acetaminophen in a 24 hour period. 4. You have been discharged on a short acting narcotic, Oxycodone. You will be on this medication for a limited period of time only. Take the smallest dose possible to control your pain. As your painimproves take smaller, less frequent doses. You may break the tablet to achieve a smaller dose. 5. You are being discharged on prescription strength naproxen (Aleve). This medication is a type ofnonsteroidal anti-inflammatory (NSAID). This will help with your pain and inflammation. Take this twice a day for the next 6 weeks. Your last dose will be on 05/24/20. If you no longer are requiring the narcotic pain medication you may change the way you take the prescribed naproxen and instead taketwice a day as needed. 6. You are being discharged on a proton pump inhibitor (Protonix). This will decrease stomach irritation that may be caused by NSAIDs. Take this daily for the next 6 weeks while you are on the NSAID. 7. You are being discharged on gabapentin (Neurontin), a non-narcotic medication that will help with your pain at night and allow you to sleep better. Take this at night for the next 4 weeks. Shower (internal sutures): 1. You can shower but remember your activity limitations and always have a chair available for balance and protection. DO NOT submerge the dressing/incision. 2. (Mepilex) Do not let water run over the operative dressing. If it becomes wet lightly pat the dressing dry. DO NOT submerge the incision. When this operative dressing is removed you can let water gently run over the incision. Wound (Mepilex): 1. You do NOT have any external ishmael or sutures in place. Your sutures are internal and will be absorbed over time. 2. You have a Mepilex dressing in place. Do not lift the edge of the Mepilex dressing to inspect the incision, it will not re-adhere. Remove your operative dressing 7 days after your surgery (04/19/20). When it is removed you can leave the incision open to air or cover it with a light dressing. Some patients have an additional item called Dermabond on their skin. If you have this it will appear as a purple skin glue, it will fall off on its own. 3. If you have lots of drainage when you get home (and it is before 04/19/20), remove the operative dressing and replace it with dry sterile gauze. Continue with daily dressing changes (and as needed) until the drainage stops, then remove the dressing and leave the incision open to air or lightly covered. Misc: Remember that ICE and elevation are very important after surgery to help decrease swelling and control pain. Use ICE for 20-30 minutes at a time and keep your leg elevated as much as possible. Call your doctor ([phone]) if you develop: 1. Fever greater than 100.5 2. Severe nausea or vomiting 3. Increasing pain that is not controlled by pain medications 4. Increasing redness, swelling, or drainage from incisions 5. Change in sensation FOLLOW-UP APPOINTMENTS: 1. You will have follow-up appointments at [facility] as indicated below in Future Appointment and Orders. 2. You will need to have x-rays prior to your follow-up appointment. [facility] hour BEFORE that appointment for these x-rays. Future Appointments Date Time Provider Department Center 05/09/2020 1:30 PM [facility] DX ROOM 3 Xray [facility] Rad 05/09/2020 2:30 PM Isidoro Lay MD [facility] ORTH 3C [facility] If you have questions or concerns: Thursday through Thursday, 8 AM - 5 PM, please call Dr. Isidoro Lay MD's office at . If it is after 5 PM, the weekend, or holidays, please call and ask to speak with theOrthopedic resident on-call. documented in this encounter Medications at Time of Discharge Medication Sig Dispensed Refills Start Date End Date febuxostat (Uloric) 40 mg Tablet Take 1 [...] 07/19/2019 01/30/2021 documented as of this encounter Progress Notes * Flaca Perez RN - 04/13/2020 2:19 PM EDT Patient discharge to home. IV removed, site benign. My assessment remains unchanged from my previous assessment. RN Discussed pain management with patient, pain tolerable. Patient medicated prior to discharge. Patient has all belongings and supplies needed. Patient received After Visit Summary and p rescriptions. These were reviewed, patient verbalizes understanding of AVS. All questions answered.Patient encouraged to call with questions or concerns. Patient discharged to home with family. Flaca Perez RN * Rebecca Ceja MD - 04/13/2020 6:30 AM EDT ORTHOPAEDIC SURGERY INPATIENT PROGRESS NOTE Patient Name: Enoc Esteban Age: 60 y.o. Surgery/Issue: Left Total Hip Arthroplasty Attending: Alireza Date of surgery: 04/12/2020 SUBJECTIVE / INTERVAL HISTORY: No acute events overnight. Denies CP, SOB, nausea, vomiting, numbness/weakness. Pain well controlled. Has not been OOB yet. Urology consulted overnight for difficulty reese placement in the setting of hypospadias and urinary retention, reese placed. Hgb 13.1, stable, consistent with acute post op blood loss anemia. FOCUSED REVIEW OF SYSTEMS: as above. Active Hospital Problems Diagnosis ??? S/p Left SLIM on 04/12/20 (Dr. Lay) ??? Status post total hip replacement, left Resolved Hospital Problems No resolved problems to display. Active Non-Hospital Problems Diagnosis ??? Obesity (BMI 30.0-34.9) ??? History of cervical spinal surgery ??? History of lumbar surgery ??? Lumbar radiculopathy ??? Atrial fibrillation ??? Radiculopathy of cervical region ??? HTN (hypertension) ??? Tophaceous gout ??? Hyperuricemia ??? Mild vitamin D deficiency ??? Moderate asthma ??? TYRON (obstructive sleep apnea) MEDICATIONS: ??? BUpivacaine-EPINEPHrine 0.25 %-1:200,000 injection ??? cloNIDine injection ??? ketorolac (TORADOL) injection ??? cyclobenzaprine (Flexeril) tablet 10 mg ??? febuxostat (Uloric) tablet 40 mg ??? ipratropium-albuteroL (COMBIVENT RESPIMAT) inhaler 1 puff ??? ipratropium-albuteroL (COMBIVENT RESPIMAT) inhaler 1 puff ??? losartan (Cozaar) tablet 50 mg ??? metoprolol succinate XL (Toprol-XL) tablet 50 mg ??? zolpidem (Ambien) tablet 10 mg ??? sodium chloride 0.9 % (flush) flush 5 mL ??? sodium chloride 0.9 % (flush) flush 5-20 mL ??? lidocaine (XYLOCAINE) 10 mg/mL (1 %) injection 3 mg ??? polyethylene glycoL (Miralax) packet 17 g ??? senna-docusate (Pericolace) 8.6-50 mg per tablet 2 tablet ??? bisacodyl EC (Dulcolax) tablet 10 mg ??? bisacodyL (Dulcolax) suppository 10 mg ??? acetaminophen (Tylenol) tablet 1,000 mg ??? gabapentin (Neurontin) capsule 600 mg FOLLOWED BY [START ON 04/14/2020] gabapentin (Neurontin) capsule 300 mg ??? celecoxib (CeleBREX) capsule 200 mg ??? dexamethasone (Decadron) tablet 4 mg ??? pantoprazole EC (Protonix) tablet 20 mg ??? lactated ringers infusion ??? ceFAZolin (Ancef) 2g in dextrose 5% 100 mL ??? oxyCODONE (Roxicodone) tablet 5-15 mg ??? multivitamin with minerals (THERA-M) tablet 1 tablet ??? apixaban (Eliquis) tablet 2.5 mg ??? [START ON 04/15/2020] apixaban (Eliquis) tablet 5 mg ??? lactated Ringers 1,000 mL (04/12/20 1800) OBJECTIVE: Temp: [36.2 ??C (97.2 ??F)-36.7 ??C (98.1 ??F)] Heart Rate: [71-95] Resp: [11-22] BP: (110-152)/(65-94) Intake/Output Summary (Last 24 hours) at 04/13/2020 0630 Last data filed at 04/13/2020 0344 Gross per 24 hour Intake 2680 ml Output 2200 ml Net 480 ml Body mass index is 34.33 kg/m??. PE: General: NAD, awake/alert CV: reg rate assessed peripherally Resp: Breathing comfortably on RA LLE: Dressing c/d/i. Motor intact to EHL, FHL, TA. Sensation intact in foot/calf/thigh. Brisk capillary refill distally. Palpable DP/PT pulses. Lab Results Component Value Date NA 133 (L) 04/13/2020 K 5.2 (H) 04/13/2020 CL 99 04/13/2020 CO2 25 04/13/2020 BUN 11 04/13/2020 CREATININE 1.09 04/13/2020 GLUCOSE 182 04/13/2020 CALCIUM 9.0 04/13/2020 Lab Results Component Value Date WBC 15.9 (H) 04/13/2020 HGB 13.1 (L) 04/13/2020 HCT 38.8 (L) 04/13/2020 MCV 101.8 (H) 04/13/2020 PLATELET 218 04/13/2020 Lab Results Component Value Date INR 1.1 03/23/2020 Imaging: AP Pelvis The left hip is reduced. There is no evidence of intra-op fracture. ASSESSMENT / PLAN: Enoc Esteban is a 60 y.o. male 1 Day Post-Op s/p left SLIM, progressing well with stable vitals. Plan for OOB today, PT/OT and dispo pending recs. Activity: WBAT to LLE DVT prophylaxis: Eliquis 2.5mg BID x48h then 5mg BID per home regimen Closure: Resorbable sutures Dressing: Mepilex x 7 days Antibiotics: Periop ancef Rebecca Ceja MD 04/13/2020 Future Appointments Date Time Provider Department Center 05/09/2020 1:30 PM [facility] DX ROOM 3 MH Xray [facility] Rad 05/09/2020 2:30 PM Isidoro Lay MD [facility] ORTH 3C [facility] * Genesis Keyes - 04/12/2020 7:30 PM EDT 1929 Report received from NIGHT CLEANER. Reese to be placed prior to transpo to [facility] r/t retention per Urology. 2123 Pt arrived on unit, Reese in place draining CYU, RN will assess. * Avelino Ovalle MD - 04/12/2020 5:06 PM EDT ORTHOPAEDIC SURGERY INPATIENT PROGRESS NOTE Patient Name: Enoc Esteban Age: 60 y.o. Surgery/Issue: Left Total Hip Arthroplasty Attending: Alireza Date of surgery: 04/12/2020 SUBJECTIVE / INTERVAL HISTORY: Denies CP, SOB, nausea, vomiting, numbness/weakness. Pain well controlled. FOCUSED REVIEW OF SYSTEMS: as above. Active Hospital Problems Diagnosis ??? S/p Left SLIM on 04/12/20 (Dr. Lay) ??? Status post total hip replacement, left Resolved Hospital Problems No resolved problems to display. Active Non-Hospital Problems Diagnosis ??? Obesity (BMI 30.0-34.9) ??? History of cervical spinal surgery ??? History of lumbar surgery ??? Lumbar radiculopathy ??? Atrial fibrillation ??? Radiculopathy of cervical region ??? HTN (hypertension) ??? Tophaceous gout ??? Hyperuricemia ??? Mild vitamin D deficiency ??? Moderate asthma ??? TYRON (obstructive sleep apnea) MEDICATIONS: ??? sodium chloride 0.9 % (flush) flush 5-20 mL ??? lidocaine (XYLOCAINE) 10 mg/mL (1 %) injection 3 mg ??? lactated ringers infusion ??? naloxone (NARCAN) injection 0.04 mg ??? HYDROmorphone (DILAUDID) injection 0.4-0.6 mg ??? fentaNYL 50 mcg/mL multi-dose injection ??? ondansetron (ZOFRAN) injection 4 mg ??? BUpivacaine-EPINEPHrine 0.25 %-1:200,000 injection ??? cloNIDine injection ??? ketorolac (TORADOL) injection ??? lactated ringers infusion ??? ceFAZolin (Ancef) 2g in dextrose 5% 100 mL ??? lactated Ringers 1,000 mL (04/12/20 1402) ??? lactated Ringers OBJECTIVE: Temp: [36.2 ??C (97.2 ??F)-36.7 ??C (98.1 ??F)] Heart Rate: [79-94] Resp: [13] BP: (117-152)/(75-94) Intake/Output Summary (Last 24 hours) at 04/12/2020 1708 Last data filed at 04/12/2020 1629 Gross per 24 hour Intake 1000 ml Output 350 ml Net 650 ml Body mass index is 34.8 kg/m??. PE: General: NAD, awake/alert CV: RRR assessed peripherally Resp: Breathing comfortably on RA LLE: Dressing c/d/i. Motor intact to EHL, FHL, TA. Sensation intact in foot/calf/thigh. Brisk capillary refill distally. Lab Results Component Value Date NA 138 03/23/2020 K 4.6 03/23/2020 CL 102 03/23/2020 CO2 26 03/23/2020 BUN 15 03/23/2020 CREATININE 1.37 03/23/2020 GLUCOSE 123 03/23/2020 CALCIUM 9.4 03/23/2020 Lab Results Component Value Date WBC 7.2 03/23/2020 HGB 15.0 03/23/2020 HCT 47.0 03/23/2020 MCV 106.1 (H) 03/23/2020 PLATELET 272 03/23/2020 Lab Results Component Value Date INR 1.1 03/23/2020 Imaging: AP Pelvis The left hip is reduced. There is no evidence of intra-op fracture. EXAMINATION: XR PELVIS (GENERIC) ?? CLINICAL HISTORY: s/p L SLIM Assess for position of L SLIM ?? TECHNIQUE: 1 views of the pelvis ?? COMPARISON: Intraoperative radiographs, April 12, 2020. ?? FINDINGS: A new left hip arthroplasty is present. ?? Alignment: The prosthesis is unchanged in alignment when compared to the intraoperative images. ?? Complication: There is no loosening or fracture. ?? Soft tissues: Expected early postsurgical air around the left hip joint. ?? Impression Newly placed and uncomplicated left total hip arthroplasty. ?? ASSESSMENT / PLAN: Enoc Esteban is a 60 y.o. male Day of Surgery s/p left SLIM, progressing well with stable vitals. Activity: WBAT to LLE DVT prophylaxis: Eliquis 2.5mg BID x48h then 5mg BID per home regimen Closure: Resorbable sutures Dressing: Mepilex x 7 days Antibiotics: Periop ancef Alexandre Leblanc MD 04/12/2020 Future Appointments Date Time Provider Department Center 05/09/2020 1:30 PM [facility] DX ROOM 3 MH Xray [facility] Rad 05/09/2020 2:30 PM Isidoro Lay MD [facility] ORTH 3C [facility] * Beth Zarate RN - 04/12/2020 4:59 PM EDT 1655 break coverage. 1722 xrays at bedside, 1728 pt attempting to void documented in this encounter H&P Notes * Isidoro Lay MD - 04/12/2020 1:03 PM EDT H&P reviewed. No changes noted. Respiratory effort at baseline. Patient appears well perfused. Proceed as planned. documented in this encounter Procedure Notes * Jen Ness MD - 04/12/2020 8:54 PM EDTProcedure(s): BLADDER CATHETERIZATION Pre-Procedure Diagnose(s): Hypospadias, unspecified hypospadias type; Retention, urine Post-Procedure Diagnose(s): Hypospadias, unspecified hypospadias type; Retention, urine Urology Procedure Note Procedure: Reese placement Pre-op diagnosis: Difficult reese placement Post-op diagnosis: same Indications: Urinary retention Physicians: Jen Ness MD Anesthesia: none Description: Sterile prep and drape of genitals. Hypospadic meatus, would not initially accomodate 14 fr reese due to meatal stenosis. Gently spread meatus with hemostat. 14fr reese then passed with gentle pressure and lubrication. Return of clear yellow urine obtained. 10cc's of water placed in balloon. Findings: hypospadias, meatal stenosis Specimens: None Complications: None Fluids: None EBL: None Drains: 14Fr reese to gravity Recommendations: See consult note documented in this encounter Nursing Notes * Smita Tanner, RN - 04/12/2020 4:49 PM EDT Pt arrived to PACU. Awakens to voice, drowsy. C/o tingling to R toes, discussed with CAREER RESOURCE SPECIALIST, aware and is related to boot from surgery, sensation improving now boot off. Afib, baseline. 17:53 Pt unable to void. RN unable to cath pt, 2nd RN attempted without success. Team paged for possible urology consult, ortho will discuss with team. 18:20 Urology darkside intern product marketing manager paged 18:36 no call back, ortho intern product marketing manager paged 18:45 no call back, urology 1st call paged, call back. Sustainability Coordinator was in same room, spoke with dark side intern product marketing manager re: difficult cath and need urology to assess/cath. Will come up to see pt. 19:20 MD Ovalle at bedside, unsuccessful cath. will get in touch with urology to have someone cometo see pt. 20:00 Reese catheter placed by MD Ness with Urology. documented in this encounter Miscellaneous Notes * Plan of Care - Tresa Robertson, LYUDMILA - 04/13/2020 2:19 PM EDT Occupational Therapy Evaluation Patient profile: Enoc Esteban??is a 60 y.o.??male??1 Day Post-Op??s/p left SLIM Past Medical History: Diagnosis Date ??? Antiplatelet [...] Irregular heart beat Afib. Takes Eliquis ??? FCI current use of opiate analgesic Dilaudid for back pain ??? Moderate asthma ??? Pain in right elbow 06/13/2014 ??? Syncope Gets light-headed occasionally. No falls, just needs to sit down until resolved. Past Surgical History: Procedure Laterality Date ??? PRO CLOSED TREAT TOE FX 02/08/2013 CLOSED TREATMENT FX PHALANX OR PHALANGES performed by Rohan Duarte MD at [facility] ??? PRO LAMINOTOMY, LUMBAR DISK, 1 INTRSP N/A 10/25/2019 LAMINOTOMY, DECOMPRESSION, FORAMINOTOMY, LUMBAR (WRVU 13.18) [facility] ??? PRO MICROSURG TECHNIQUES, REQ OPER MICROSCOPE N/A 10/25/2019 MICROSCOPE USE (WRVU 3.46) performed by Denzel Madison MD at [facility] MAIN OR ??? PRO REMOVAL OF ELBOW BURSA Right 10/16/2014 EXCISION OF OLECRANON BURSA performed by Anupama Howard MD at [facility] ??? PRO TOTAL HIP ARTHROPLASTY Left 04/12/2020 TOTAL HIP ARTHROPLASTY, ANTERIOR APPROACH (WRVU 20.72) performed by Isidoro Lay MD at [facility] MAIN OR Social History: Home set-up: Lives with his in a 1 level home with 3 small platform steps + 4-5 regular steps with b/l handrails up to enter. Baseline Mobility/ADL: mod-independent, has been using axillary crutches (1 sometimes both at a time) for the past 8 months d/t LE pain. His works and is independent. Independent all ADL/IADL tasks. Tub shower, no chair Equipment at home: axillary crutches, electric bed (adjustable); Plans to purchase a commode Fall history: none ?? Precautions/Special Considerations: WBAT LLE standard precautions Subjective: I am going to buy this commode so I can put it over the toilet. They tell me I can also use it in the shower Objective: Seen today for OT evaluation. Cognitive Status/Behavior: ?? Behavior / Mood: alert and cooperative ?? Alert and oriented to: person, place, time and situation ?? Follows commands: multi step and 100% of the time ?? Attention: WFL ?? Safety awareness: WFL Vision & Perception: ?? Cheaters for reading Communication: WFL Range of motion, strength, coordination: Bilateral UE's are within functional limitations RLE: WFL LLE: Only limited by SLIM Sensation: Intact Activities of Daily Living: Self-feeding: Independent Grooming: Independent Dressing: Supervision for L sock; Increased time. can help Bathing: N/A, but anticipate supervision. Plans to purchase a chair Toileting: Transfer: Catheter in place. Anticipate independent. Plans to purchase a commode for increased height over toilet Hygiene: N/A Functional Mobility: Supine to sit: N/A; Patient seated in his bedside chair upon OT arrival. Has an adjustable bed at home Sit to stand: Independent Ambulation: Independent with RW 150 feet Stand to sit: Independent Sit to supine: N/A Balance: Sitting balance: Good Standing balance: Good Vitals: HR 85; Sp02 96 Pain: 5/10 L hip Skin: L hip incision Education: patient and significant other have been educated on Role of occupational therapy/rehabilitation, Transfers, Assistive device/technique, ADL, Positioning, Safety, Precautions/Protocol, Functional Mobility, Balance, Recommendations and Discharge planning and demonstrate and verbalizes under standing. Patient status, treatment, and mobility recommendations discussed with nursing. Assessment: Pt has been seen for occupational therapy evaluation. Enoc Esteban presents with the following performance skill deficits and client factors: increased pain, decreased flexibility/ROM and decreased sitting/standing balance. 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 However, despite the deficits listed above pt demonstrates the ability to complete all ADL tasks/functional mobility at an independent/supervised level. He reports his function has improved post op.He lives with his who can provide assistance. Anticipate that pt will return home with assistance once medically ready. Do not anticipate further OT needs while hospitalized. Equipment needs at discharge: RW; Commode Anticipated Discharge Disposition: home with assist Plan: OT: Therapy Frequency: evaluation only Total Evaluation Minutes, Occupational Therapy: 23(OT eval & SCHM ) 2017 OT Evaluation Code Rationale: ?? Diagnosis & Pertinent Co-Morbidities affecting Plan of Care: see PMHx ?? Occupational Profile & Client History: Brief Expanded Extensive x ?? Assessment of Occupational Performance: 1-3 performance deficits x 3-5 performance deficits 5 + performance deficits ?? Clinical Decision Making: Low Moderate High x Clinical decision making of low complexity using standardized patient assessment instrument and measurable assessment of functional outcome. Pager: [phone] TRESA ROBERTSON OT 04/13/2020 Occupational Therapy Rehabilitation Department * Initial Assessments - Irina Means RN - 04/13/2020 9:25 AM EDT Office of Care Management Assessment Medical record reviewed. Plan of care and patient status discussed with direct care RN and/or Care Team in multidisciplinary rounds. Screen[age] y.o. male here for scheduled surgery. Present on Admission: ??? Status post total hip replacement, left Patient has not been admitted to a hospital within the last 30 days. Patient receiving hospital care under Same Day Overnight (OP) status. Admission order reviewed. Primary Insurance on file: MEDICAID [place] Secondary Insurance on file: N/A Primary care provider on file: Alek Esparza MD [phone] Advance Directive on file and Code Status: <no information>, Full Code Patient???s Functional Status: has cleared rehab for discharge home. Living Situation: [address] [facility] [id number] Supports: Friend Naga Assessment: Patient cleared for home with FWW and will be discharging with reese catheter placed byurology. Met with patient and Naga. The patient has been provided a verbal list ofDME vendors. He would like walker provided by vendor on site at [facility]. Patient requests referral to: Orth[facility] Located @ [facility] [address] JALEN James Expected date of discharge: 04.13.2020 Mandie teaching per nursing and management of cath per MD orders. Referral routed to the Blow Mold Machine Operator for matching with agency/vendor and to provide any required information. No housing, transportation, insurance, resources concerns identified at this time. Supports in place to achieve a safe post-hospital transition. No identified barriers to accessing necessary care and/or follow-up after discharge. Plan: Patient to d/c to home via car when medically ready. development engineer/Revenue Cycle Specialist will continue to follow patient???s progress and remain available if situation changes for coordination of care, psychosocial support and/or discharge planning. IRINA MEANS RN Pager [phone] Extension [phone] * Plan of Care - Yolanda Manuel, PT - 04/13/2020 8:34 AM EDT Physical Therapy Evaluation Patient profile: Enoc Esteban is a 60 y.o. male 1 Day Post-Op s/p left SLIM. Patient with the following active problems: Past Medical History: Diagnosis Date ??? Antiplatelet [...] Irregular heart beat Afib. Takes Eliquis ??? FCI current use of opiate analgesic Dilaudid for back pain ??? Moderate asthma ??? Pain in right elbow 06/13/2014 ??? Syncope Gets light-headed occasionally. No falls, just needs to sit down until resolved. Past Surgical History: Procedure Laterality Date ??? PRO CLOSED TREAT TOE FX 02/08/2013 CLOSED TREATMENT FX PHALANX OR PHALANGES performed by Rohan Duarte MD at [facility] ??? PRO LAMINOTOMY, LUMBAR DISK, 1 INTRSP N/A 10/25/2019 LAMINOTOMY, DECOMPRESSION, FORAMINOTOMY, LUMBAR (WRVU 13.18) [facility] ??? PRO MICROSURG TECHNIQUES, REQ OPER MICROSCOPE N/A 10/25/2019 MICROSCOPE USE (WRVU 3.46) performed by Denzel Madison MD at [facility] MAIN OR ??? PRO REMOVAL OF ELBOW BURSA Right 10/16/2014 EXCISION OF OLECRANON BURSA performed by Anupama Howard MD at [facility] Active Non-Hospital Problems Diagnosis ??? Obesity (BMI 30.0-34.9) ??? History of cervical spinal surgery ??? History of lumbar surgery ??? Lumbar radiculopathy ??? Atrial fibrillation ??? Radiculopathy of cervical region ??? HTN (hypertension) ??? Tophaceous gout ??? Hyperuricemia ??? Mild vitamin D deficiency ??? Moderate asthma ??? TYRON (obstructive sleep apnea) Social History: Home set-up: Lives with his in a 1 level home with 3 small platform steps + 4-5 regular steps with b/l handrails up to enter. Baseline Mobility: mod-independent, has been using axillary crutches (1 sometimes both at a time) for the past 8 months d/t LE pain. Recently returned back to work. His works and is independent. Equipment at home: axillary crutches, electric bed (adjustable) Fall history: none Precautions/Special Considerations: WBAT LLE standard precautions Mobility and Positioning Recommendations: ?? Pt. to utilize FWW and SBA for ambulation and transfers with nursing. ?? Please encourage up to chair for meal times as able. ?? Pt encouraged to ambulate frequently with staff, getting into the bathroom for toileting and walking out in the peterson >/= 3 times daily as able. Subjective: ???I'm already feeling better since surgery?? Objective: Pt seen for evaluation today with OT. Pt's spouse present. Pain: Number Location At rest 5/10 L hip With activity 5/10 L hip Vital Signs: stable Mental Status: alert, oriented to person, place, and time Vision: WFL Skin: intact Musculoskeletal: ROM: RLE WFL, L hip and knee limited d/t incision site and soreness, ankle WFL; BUE WFL Strength: RLE WFL, LLE at least 3+/5 (able to WBAT), BUE WFL Sensation: intact Bed Mobility: NT - pt has electric bed that adjusts. Transfers: Sit to Stand: SBA with FWW Stand to Sit: Mod-indep with FWW Gait: Distance: 160' Device used: FWW Level of assist: SBA Gait mechanics: step to (antalgic-like gait), c/o soreness but otherwise asymptomatic Stairs: 12 steps up/down with crutch and 1 rail (crutch on R side, L rail; reverse descend); initially using step-to but educated to slow down and use step to with cues for proper sequencing. SBA. Spouse present. Pt felt comfortable doing stairs. Reports he'll have no issues using platform steps with walker as he was doing them with crutches. Balance: good with FWW ambulating Therex: reviewed precautions; applying ice as needed Education: patient and significant other has been educated on Transfers, Assistive device/technique, Stairs, Safety , Precautions/protocol, Gait , Activity pacing/Energy conservation, Role of therapy, Balance and verbalize understanding. Patient status, treatment, and mobility recommendations discussed with nursing. Assessment: Enoc Esteban was seen today for physical therapy evaluation. Presents with new precautions, pain, decreased strength, decreased ROM, impaired mobility and balance. Despite these deficits, pt is currently ambulating and performing all transfers steadily with SBA using a FWW. Cleared stairs. From a PT standpoint pt is safe for d/c to home when medically able. Pt will need a FWW, CM aware. Anticipate no further inpatient PT needs. Discharge Recommendations: Based on the current findings, Anticipated Discharge Disposition: home with assist when medically ready for hospital discharge. Consult Recommendations: No other consults recommended at this time. Equipment needs: FWW (CM aware) Plan: Therapy Frequency: evaluation only. Patient/family understand and agree with plan as stated above. 2017 PT Evaluation Code Rationale: ?? Diagnosis & Pertinent Co-Morbidities, personal factors, and present illness affecting Plan of Care: (see above); Additional personal factors or co- morbidities that impact plan: ?? Total # of Factors: 0 1-2 3+ x ?? Examination of body system impairments, functional limitations and behaviors, and/or participation restrictions. Addressing 1-2 elements Addressing 3 + elements Addressing 4 + elements x ?? Clinical presentation: See assessment above. Stable/Uncomplicated Evolving/Fluctuating Symptoms Unstable/Unpredictable x ?? Clinical decision making of low complexity based on pt's functional performance as outlined in this evaluation. Time IN / OUT: 0410-0172 Total Evaluation Minutes, Physical Therapy: 17(eval, gt) Yolanda Manuel, PT Pager: [phone] Physical Therapy Inpatient Rehabilitation Department * Plan of Care - WaliGenesis - 04/13/2020 3:00 AM EDT Problem: Patient Care Overview Goal: Plan of Care Review Outcome: Ongoing (Interventions Implemented as Appropriate) 04/12/20212904/13/20 0250 Plan of Care Review Progress -- progress toward functional goals as expected Coping/Psychosocial Plan Of Care Reviewed With patient -- OUTCOME EVALUATION NOTE: OUTCOME SUMMARY: Patient arrived on unit from PACU this shift, dressing to L hip CDI, neurovascular check benign, see flowsheets for details. Reports pain 5-6/10 managed with PRN oxycodone. IV abx continued. RN will continue to monitor and help pt reach d/c goals. PLAN MOVING FORWARD: Manage pain, ambulate, PT/OT, d/c planning INDIVIDUALIZED FALL PREVENTION INTERVENTIONS: Patient-specific fall risk factors per assessment: [current deficits]: Recent operation, MIVF, IV abx, pain meds Assistance [level of assistance required for transfers and ambulation]: Not OOB Supervision [direct monitoring required during toileting and ADLs]: Hands on Surveillance [continuous indirect monitoring]: Masimo, bed alarm, hourly rounding Patient-specific fall prevention interventions for sensory deficits provided, if applicable: [X] N/A CPG GOAL OUTCOME EVALUATION: Goal: Individualization & Mutuality Outcome: Ongoing (Interventions Implemented as Appropriate) 04/13/20 0250 Individualization Patient Specific Preferences none Goal: Fall Prevention-Safe Patient Handling Outcome: Ongoing (Interventions Implemented as Appropriate) 04/12/202129 Juan Fall Risk History of Falling 0 Secondary Diagnosis 15 Ambulatory Aids 15 Intravenous Therapy/Heparin/Saline Lock 20 Gait/Transferring 10 Mental Status 0 Score 60 OTHER Juan Fall Risk High Restraint Interventions Safety Promotion/Fall Prevention activity supervised Positioning Body Position independent Activity Activity Type activity adjusted per tolerance Activity Assistance Provided (not oob) Goal: Infection Control Outcome: Ongoing (Interventions Implemented as Appropriate) 04/12/202129 Safety Interventions Isolation Precautions standard precautions maintained Infection Prevention environmental surveillance performed Coping Strategies Supportive Measures active listening utilized Goal: Discharge Needs Assessment Outcome: Ongoing (Interventions Implemented as Appropriate) 04/13/20249 Discharge Needs Assessment Discharge Disposition still a patient Goal: Interdisciplinary Rounds/Family Conf Outcome: Ongoing (Interventions Implemented as Appropriate) 04/13/20249 Interdisciplinary Rounds/Family Conf Participants patient;nursing Problem: Hip Arthroplasty (Total, Partial) (Adult) Goal: Signs and Symptoms of Listed Potential Problems Will be Absent, Minimized or Managed (Hip Arthroplasty) Signs and symptoms of listed potential problems will be absent, minimized or managed by discharge/transition of care (reference Hip Arthroplasty (Total, Partial) (Adult) CPG). Outcome: Ongoing (Interventions Implemented as Appropriate) 04/13/20249 Hip Arthroplasty (Total, Partial) Problems Assessed (Hip Arthroplasty) all Problems Present (Hip Arthroplasty) pain * Consult Note - Jen Ness MD - 04/12/2020 8:37 PM EDT UROLOGY INPATIENT CONSULT NOTE CONSULT REQUESTED BY Isiodro Lay MD HPI Enoc Esteban is a 60 y.o. male seen in the PACU following a left total hip arthroplasty. Urology is consulted for difficulty with reese catheter placement and post-op retention. Patient is emerging from anesthesia, but able to answer questions. Patient states that he has not had urologic issues in the past. He denies prior episodes of retention, difficulty voiding, or blood in the urine. He appears to have hypospadias, which he says has never bothered him and he has never had or desired surgery for this. Bladder scanning in PACU for 750cc with inability to void. He appears uncomfortable. MEDICAL AND SURGICAL HISTORY Past Medical History: Diagnosis Date ??? Antiplatelet [...] Irregular heart beat Afib. Takes Eliquis ??? 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 Moderate asthma ??? Pain in right elbow 06/13/2014 ??? Syncope Gets light-headed occasionally. No falls, just needs to sit down until resolved. Past Surgical History: Procedure Laterality Date ??? PRO CLOSED TREAT TOE FX 02/08/2013 CLOSED TREATMENT FX PHALANX OR PHALANGES performed by Rohan Duarte MD at [facility] ??? PRO LAMINOTOMY, LUMBAR DISK, 1 INTRSP N/A 10/25/2019 LAMINOTOMY, DECOMPRESSION, FORAMINOTOMY, LUMBAR (WRVU 13.18) [facility] ??? PRO MICROSURG TECHNIQUES, REQ OPER MICROSCOPE N/A 10/25/2019 MICROSCOPE USE (WRVU 3.46) performed by Denzel Madison MD at [facility] OR ??? PRO REMOVAL OF ELBOW BURSA Right 10/16/2014 EXCISION OF OLECRANON BURSA performed by Anupama Howard MD at [facility] No current facility-administered medications on file prior to encounter. Current Outpatient Medications on File Prior to Encounter Medication Sig Dispense Refill ??? febuxostat (Uloric) 40 mg Tablet Take 1 tablet by mouth daily. 90 tablet 3 ??? ELIQUIS 5 mg Tablet Resume 10 days after surgery. (Patient taking differently: Take 5 mg by mouth 2 times daily.) 6 ??? acetaminophen (TYLENOL) 325 mg Tablet Take 2 tablets by mouth every 4 hours as needed for Pain.30 tablet 1 ??? ipratropium-albuterol (COMBIVENT RESPIMAT) 20-100 mcg/actuation Mist Inhale 1 puff into the lungs as needed for Wheezing. ??? VITAMIN D 50,000 unit Capsule Take 50,000 Units by mouth every 14 days. 3 ??? ibuprofen (ADVIL;MOTRIN) 800 mg Tablet TAKE ONE TABLET BY MOUTH THREE TIMES A DAY WITH FOOD NEEDED 3 ??? metoprolol succinate (TOPROL-XL) 50 mg Tablet Sustained Release 24 hr Take 1 tablet by mouth daily. 90 tablet 3 ??? gabapentin (NEURONTIN) 100 mg Capsule Take 1 capsule three times daily x7 days, then take 2 capsules three times daily x7 days, then take 3 capsules three times daily (Patient taking differently:Take 100 mg by mouth 3 times daily. Take 1 capsule three times daily x7 days, then take 2 capsules three times daily x7 days, then take 3 capsules three times daily) 90 capsule 12 ??? losartan (COZAAR) 50 mg Tablet Take 1 tablet by mouth daily. 30 tablet 5 ??? HYDROcodone-acetaminophen (NORCO) 10-325 mg Tablet Take 2 tablets by mouth every 8 hours as needed. ??? zolpidem (AMBIEN) 10 mg tablet Take 10 mg by mouth nightly as needed. ??? VIAGRA 100 mg Tablet TAKE 1 TABLET BY MOUTH DAILY NEEDED MAX OF 1 TABLET IN 24 HOURS 12 The patient's home medications were obtained from the following source(s): [facility] Social History Socioeconomic History ??? Marital status: [...] Social History Narrative ??? Not on file ROS not obtained due to post-anesthesia state. PHYSICAL EXAM Current 24 Hours Temp: 36.2 ??C (97.2 ??F) Temp: [36.2 ??C (97.2 ??F)-36.7 ??C (98.1 ??F)] Heart Rate: 73 Heart Rate: [71-95] BP: 125/83 BP: (112-152)/(65-94) Resp: 12 Resp: [11-22] SpO2: 98 % SpO2: [93 %-100 %] No intake/output data recorded. GEN: Resting comfortably in bed, conversant, NAD. HEENT: NCAT. CHEST: breathing comfortably on room air CV: Regular rate ABD: Soft, discomfort in lower abdomen, ND. : Hypospadias with meatus near magana, meatal stenosis. No urethral discharge. Testes descended bilaterally. EXTR: No LE edema. SKIN: Warm and dry. NEURO: Somnolent, but answering questions. No results for input(s): WBC, HGB, HCT, PLATELET in the last 168 hours. No results for input(s): NA, K, CL, CO2, BUN, CREATININE, GLUCOSE, CALCIUM, MAGNESIUM, PHOS in the last 168 hours. No results for input(s): PT, PTT, INR in the last 168 hours. No results for input(s): BILITOT, BILIDIR, AST, ALT, ALKPHOS, AMYLASE, LIPASE in the last 168 hours. IMPRESSION 60 y.o. 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 14 fr catheter placed at bed side (see separate procedure note). Given volume of urine in bladder, I would recommend leaving catheter in place for 3-5 days due to likely bladder stretch injury. At that point he may have a trial of void. RECOMMENDATIONS ?? Trial of void in 3-5 days, can be arranged in urology clinic (contact urology prior to dischargeif needed) ?? Follow up with urology prn for treatment of meatal stenosis/hypospadias if patient desires ?? Case to be discussed with Dr. Harrison. Jen Ness MD * Op Note - Isidoro Lay MD - 04/12/2020 4:09 PM EDT [facility] [place] Operative Note Patient Name: Enoc Esteban : [id number] MR#: [id number] Case Date: 04/12/2020 Surgeon: Surgeon(s) and Role: * Isidoro Lay MD - Primary * Timothy Oviedo MD - Resident Preoperative diagnosis: Left Hip DJD Postoperative diagnosis: Left Hip DJD Procedure(s) (LRB): TOTAL HIP ARTHROPLASTY, ANTERIOR APPROACH (WRVU 20.72) (Left) MODIFIER,AMIS P HIP STEM,MEDACTA (N/A) MODIFIER,MPACT CUP,MEDACTA (N/A) Anesthesia: General Estimated Blood Loss: 350 mL Specimens removed during surgery: Order Name Source Comment Collection Info Order Time SPECIMEN TO PATHOLOGY Left Hip DJD Left Femoral Head excision No 04/12/2020 4:10 PM Time specimen removed from patient: 3:37 PM Number of tissue samples (in container) 1 Drains: * No LDAs found * Surgical Closure: Primary Closure - skin incision is completely closed without any wires, josé, drains or other devices Disposition: awakened from anesthesia, extubated and taken to the recovery room in a stable condition, having suffered no apparent untoward event. Condition: doing well without problems (Please see the Surgical Encounter Summary for any Implant and Specimen details pertinent to this patient.) Indications for the Procedure: Mr. Esteban is a 60 y.o. year old male who has been followed in the out-patient clinic with a historyof progressively worsening left hip pain secondary to degenerative arthritis. After having failed conservative, non-surgical attempts at managing the pain and limitations of functional capabilities, it was felt that the only remaining option was surgical. A detailed conversation regarding the risksand benefits of hip arthroplasty surgery was had with the patient. The risks discussed included butwere not limited to: bleeding (which may or may not require transfusion), infection, damage to nerves (specifically the LFCN) or blood vessels, deep venous thrombosis, pulmonary embolus, prosthetic failure, loosening, prosthetic fracture, femur or pelvic fracture, dislocation, leg- length inequality, persistent pain, need for future surgery, medical complications (including cardiac, respiratory and neurologic complications), anaesthetic complications, and . Subsequent to this conversation, all of the patient???s questions were answered in great detail and informed consent was obtained fora left total hip arthroplasty. He received preoperative medical clearance and was felt optimized for surgery. Today, he identified the left hip as the correct operative side. Implants: Femoral Stem: Medacta AMIS, size 6 Femoral Stem Type: standard/ Collared Femoral Head: 36mm +4mm Ceramic Acetabulum: Medacta MPact 2 hole, size 62 Liner: HXL polyethylene, neutral +0mm Intraoperative Findings: Arthritic changes in both the femoral head and acetabulum as evidenced by loss of cartilage, exposed eburnated bone and osteophyte formation. Procedure: The patient was met in the pre-operative holding area where the appropriate site was marked, 24 hour update completed, and the pre-operative checklist completed. He was then brought to the operating room on a stretcher where the above anesthetic was administered. With the patient still on their hospital stretcher, the feet and ankles were wrapped in webril and coban. The well-padded feet were then placed into the traction boots, which were then tightened. SCDs were applied to both legs. Distal perfusion was checked to ensure good capillary refill into the toes while in the boots. The patient was carefully transfered onto HANA table. The boots were connected into the leg spars. A well padded central post was placed and the patient was carefully positioned to abut the post. The arms were positioned on well-padded arm boards. The contralateral femur lift was attached with the Gripper Y bar. For pre-operative antibiotics, 2g of intravenous cefazolin was administered within 30 minutes of incision time. A clinical time-out was held confirming the correct patient name, MRN, , planned procedure, site, antibiotic start time and agent, and outline of any surgical concerns. All in attendance were in agreement to proceed. Weight based dosing of tranexamic acid was administered prior to making an incision. Skin Preparation: The skin was prepped using ChloraPrep ??2 from midline, posterior to the greater trochanter, from one hand breadth above the ASIS extending distally to allow access to the lateral femoral condyle. The prep was allowed to fully dry and sterile drapes were applied. Surgical Approach: The skin was then incised starting approximately 1-2 cm posterior to the ASIS and angled posteriorly approximately 30 degrees towards the fibular head and lateral femoral condyle. Hemostasis was obtained using bovie electrocautery. The fascia over the TFL was exposed and incised at the junction of the anterior 1/3 and posterior 2/3s in line with the muscle fibers being cautious to stay within thefascial compartment to minimize the risk to the lateral femoral cutaneous nerve. A skin protactor was placed in the subcutenous plane and tensioned. The anterior edge of the fascia was identified madhuri Smalls elevator was used to come around the medial side of the TFL which was retracted posterior and lateral using an Adson Leonel retractor (Hueter approach). The rectus fascia was identified and opened at the posterior border of the rectus muscle. The lateral femoral circumflex vessels were identified in the center of the incision where they were clamped and cauterized using the bovie. A cobrawas then placed over the superior femoral neck. The pre-capsular fat and fascial tissue was excised using electrocautery. The vastus lateralis was identified distally and a black handle cobra was placed anterior to this over the inferior femoral neck. The Black handle cobra was replaced with the two prong Gripper retractor and this was tensioned. Pre-capsular fat and any remaining Rachel's fasciawas then removed to expose the bare area over the anterior hip capsule. A V-shaped capsulotomy was then made over the anterior neck, starting at the AIIS and working distally along the lateral borderof the iliocapsularis muscle belly. Once over the inferior femoral neck, the capsulotomy was brought up along the intertrochanteric line towards the tubercle and over the superior neck. The capsular flap was tagged with 0 vicryl. The cobra was placed intra-articular. The leg was then externally rotated to 40 degrees to aid in exposure for the neck cut. An oscillating saw was used to make the femoral neck osteotomy starting at the calcar using the pre-operative template as a guide. Gentle traction was applied to the operative leg. A corkscrew on power was drilled into the center of the femoralhead and it was removed being careful to protect the soft tissues. Acetabular Prep: The fixed charnley was then positioned with the small arm anterior grabbing the anterior hip capsule and the large arm posterior grabbing the posterior capsule flap. The charnley was tensioned open and locked. Sharp nevaeh retractors were used to visualize the labrum and pulvinar tissue, which was removed with the bovie. The remaining posterior and inferior capsule was injected with 10cc of the local anesthetic cocktail. A 57mm reamer was placed in situ and the offset reamer handle was inserted and attached. The acetabulum was then reamed under direct visualization and using fluoroscopic guidance up to 61mm at which excellent hemispheric contact was noted. A healthy bed of bleeding bone was i dentified and the acetabulum was irrigated. The definitive 62mm acetabular implant was then impacted into place and fully seated. Appropriate abduction and anterversion were assessed clinically and with the C-arm. The socket was irrigated and the definitive liner was impacted into place and noted to fully seat and engage the locking mechanism. Rim osteophyte was removed using a 1/2 inch curved osteotome. Femoral Prep: Traction was taken off the operative leg. The charnley was removed. The two prong Gripper retractorwas placed over the medial inferior neck and the remaining fibers of the pubofemoral ligament were released. Once the proximal femur was adequately exposed by splitting the capsule towards the protuberance on the trochanter and it could be maximally rotated without significant tension, the leg was adducted and hyperextended by lowering the leg spar to the ground. Care was taken to assure the greater trochanter was free from behind the acetabulum. A long Nevaeh retractor was placed around the greater trochanter. Any residual lateral femoral neck was removed with a rongeur. A box osteotome and ra sp were used to enter the canal laterally. The 00 broach was advanced in the appropriate version toopen the canal. The canal was sequentially broached up to a size 6 using the preoperative template as a guide. Excellent torsional stability was noted. A trial standard neck was placed and a trial size 36+4mm head was affixed. The leg spar was broughtup to level. Light traction and internal rotation was used and gentle pressure was applied to the head to reduce it into the acetabulum. All traction was released. C-Arm was used to assess component positioning, verify leg length, and offset anglican. Satisfied, the hip was dislocated using traction and external rotation. The retractors were repositioned around the proximal femur and the leg was externally rotated, extended and adducted again. Thebroach trial was removed after confirming continued stability. A calcar planar was used to plane the proximal femur even with the broach. The definitive stem was pressfit, noted to seat fully, and achieve excellent stablity. The definitive head was impacted onto a cleansed and dried juan taper. All retractors were removed and the hip was reduced without issue. Definitive implant position, alignment and fit were re-verified with C-Arm. Final images were saved to PACS. Closure: The wound was copiously irrigated. The muscle and deep tissue was injected with the remaining cocktail, a combination of 50cc of 0.25% marcaine with epi, 50mcg clonidine and 30mg of toradol. The fascia of the TFL was closed using a running barbed suture. The wound was irrigated again and the deep tissues were closed using a running 0 vicryl. Interrupted 2-0 vicryl was used to close the subcutaneous layer. The skin was closed with a running monocryl and skin glue was used as a sealant. A sterileMepilex dressing was applied to the wound. The needle, sponge and instrument counts were correct at the end of the procedure. The patient was then transferred off the HANA table back to the [facility]. Attestation: Case Date: 04/12/2020 I was present and I participated during the entire procedure (does not need to include opening and closing). Isidoro Lay MD 04/12/2020 Post-operative Plan: (avoid IV narcotics) ?? 5-10 mg Oxycodone Q 4 hours po PRN ?? 2 mg Dilaudid po for breakthrough pain q 3-4 hours?? PRN ?? for breakthrough pain 15 mg Toradol iv or im q 6 hours (max 4 doses) ?? 1000mg Tylenol po??? q8 hour ?? Tramadol 50mg q6hr PRN if patient sensitive to narcotics ?? 600 mg Neurontin po qhs for 2 days followed by 300 mg Neurontin po qhs for 4 weeks (for insomnia) ?? Naprosyn 500mg bid x 4 weeks ?? Dexamethasone 4 mg po q 24 hours for 2 days (if diabetic add SSI) ?? Protonix 20mg qd x 2 weeks (or other PPI) ?? Zofran 4 mg po/iv q 8 hours PRN nausea ?? Encourage voiding q 4 hours. If unable to void bladder scan and encourage to void in 30 minutes.If PVR > 500 then straight cath. ?? AP Pelvis in PACU ?? NO post-operative antibiotics needed ?? Weight bearing status of operative extremity: Weight bearing as tolerated ?? Wound closure: Subcuticular absorbable suture with skin glue ?? Dressing changes: Mepilex Silver (Do not change for 7 days then a dry sterile dressing) ?? Follow-up Plan: As scheduled prior to surgery (approx. 4 weeks with x-rays) ?? Anticoagulation: ASA 81mg BID for 30 days ?? Any possible barriers to discharge: None ?? Plan for hospital stay: Standard ?? Anticipated Length of Stay: 1-2 days Implant Summary: Implant Name Type Inv. Item Serial No. Electric Stop Installer Lot No. LRB No. Used Action LINER,MPACT,FLAT,HIGHCROSS,36, ([id number]) (AUTOREQ) - [id number] IMPLANTS LINER,MPACT,FLAT,HIGHCROSS,36, ([id number]) (AutoReq) [employer] - MEDACTA [id number] Left 1 Implanted CUP,MPACT,RIM,2HOLE,62MM ([id number]) (AUTOREQ) - [id number] IMPLANTS CUP,MPACT,RIM,2HOLE,62MM ([id number]) (AutoReq) [employer] - MEDACTA [id number] Left 1 Implanted HEAD,BIOLOX,DELTA,LARGE,36MM ([id number]) (AUTOREQ) - [id number] IMPLANTS HEAD,BIOLOX,DELTA,LARGE,36MM([id number]) (AutoReq) [employer] - MED[employer]A [id number] Left 1 Implanted * Brief Op Note - Isidoro Lay MD - 04/12/2020 4:08 PM EDT Brief Operative Note Patient Name: Enoc Esteban : [id number] MR#: [id number] Case Date: 04/12/2020 Surgeon: Surgeon(s) and Role: * Isidoro Lay MD - Primary * Timothy Oviedo MD - Resident Preoperative diagnosis: Left Hip DJD Postoperative diagnosis: Left Hip DJD Procedure(s) (LRB): TOTAL HIP ARTHROPLASTY, ANTERIOR APPROACH (WRVU 20.72) (Left) MODIFIER,AMIS P HIP STEM,MEDACTA (N/A) MODIFIER,MPACT CUP,MEDACTA (N/A) Anesthesia: General Findings: 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 Output: Estimated Blood Loss: 350 mL Urine Output:: (no urine output recorded) Other Output: (no other output recorded) Drains: none Specimens removed during surgery: * No orders in the log * Disposition: awakened from anesthesia, extubated and taken to the recovery room in a stable condition, having suffered no apparent untoward event. Condition: doing well without problems Attestation: Case Date: 04/12/2020 I was present and I participated during the entire procedure (does not need to include opening and closing). (Please see the Surgical Encounter Summary for any Implant and Specimen details pertinent to this patient.) documented in this encounter Plan of Treatment Not on file documented as of this encounter Procedures Procedure Name Priority Date/Time Associated Diagnosis Comments HEMOGRAM Routine 04/13/2020 3:39 AM EDT DIFFERENTIAL, AUTOMATED Routine 04/13/2020 3:39 AM EDT HC VENIPUNCTURE Routine 04/13/2020 3:39 AM EDT BASIC METABOLIC PANEL Routine 04/13/2020 3:39 AM EDT XR PELVIS STAT 04/12/2020 5:20 PM EDT SPECIMEN TO PATHOLOGY Routine 04/12/2020 4:10 PM EDT XR FLUORO NO RAD <1HR - OR USE Routine 04/12/2020 4:08 PM EDT SURGICAL PATHOLOGY REPORT Routine 04/12/2020 3:37 PM EDT MODIFIER,MPACT CUP,MEDACTA 04/12/2020 2:19 PM EDT Left Hip DJD MODIFIER,AMIS P HIP STEM,MEDACTA 04/12/2020 2:19 PM EDT Left Hip DJD Arthroplasty Acetabular/Prox Fem Prostc Agrft/Algrft ([id number]) 04/12/2020 2:19 PM EDT Left Hip DJD documented in this encounter Results * (ABNORMAL) Differential, Automated (04/13/2020 3:39 AM EDT) Neutrophil % 88.4 % [facility] Neutrophil Absolute 14.03(H) 1.70 - 6.10 x10(3)/mc L [facility] Lymph % 7.2 % [facility] Lymphocytes Abs 1.2 0.9 - 3.2 x10(3)/mc L [facility] Monocyte % 4.0 % [facility] Monocyte Abs 0.6 0.3 - 0.9 x10(3)/mc L [facility] Eos % 0.0 % [facility] Eosinophils Abs 0.0 0.0 - 0.4 x10(3)/mc L [facility] Basophil % 0.1 % [facility] Baso Absolute 0.0 0.0 - 0.1 x10(3)/mc L [facility] Immature Gran % 0.30 % [facility] Comment: Immature granulocytes(IG's)percentage and absolute count will include metamyelocytes, myelocytes, and promyelocytes. Blood smears from CBCs yielding IG's will be scanned manually for concordance. If this scan disagrees with the automated IG or if promyelocytes are noted, a manual differential will be performed. Immature Gran Absolute 0.05(H) 0.00 - 0.04 x10(3)/mc L [facility] Blood specimen (specimen) 04/13/2020 3:39 AM EDT 04/13/2020 3:57 AM EDT Narrative Resulting Agency Comment Spec In Lab Timothy Oviedo MD HEMATOLOGY ORDERABLE S [facility] [place] [address] * (ABNORMAL) Hemogram (04/13/2020 3:39 AM EDT) White Blood Cell 15.9(H) 4.0 - 9.5 x10(3)/mc L [facility] Red Blood Cell 3.81(L) 4.58 - 5.54 x10(6)/mc L [facility] Hemoglobin 13.1(L) 13.7 - 16.5 gm/dL [facility] Hematocrit 38.8(L) 40.5 - 48.5 % [facility] Mean Cell Volume 101.8(H) 82.9 - 93.[address] [facility] Mean Cell Hemoglobin 34.4(H) 27.5 - 32.[address] [facility] Mean Cell Hemoglobin Concentration 33.8 32.0 - 35.7 gm/dL [facility] Platelet 218 145 - 357 x10(3)/mc L [facility] RDW Standard Deviation 45.5(H) 36.0 - 45.[address] [facility] RDW coefficient of variation 12.1 11.4 - 13.8 % [facility] Mean Platelet Volume 10.1 7.6 - 12.[address] [facility] NRBC% auto 0.0 % [facility] NRBC Absolute 0.000 0.000 - 0.000 x10(3)/mc L [facility] Blood specimen (specimen) 04/13/2020 3:39 AM EDT 04/13/2020 3:57 AM EDT Narrative Resulting Agency Comment Spec In Lab Timothy Oviedo MD HEMATOLOGY ORDERABLE S [facility] [place] [address] * (ABNORMAL) Basic Metabolic Panel (non-fasting) (04/13/2020 3:39 AM EDT) Glucose 182 65 - 199 mg/dL [facility] Comment:Diabetes: >=200 mg/d L plus symptoms Blood Urea Nitrogen 11 10 - 20 mg/dL [facility] Creatinine 1.09 0.80 - 1.50 mg/dL [facility] Sodium 133(L) 135 - 145 mmol/L [facility] Potassium 5.2(H) 3.5 - 5.0 mmol/L [facility] Comment: Please note: ??Patients with WBC >100,000 may have falsely elevated Potassium levels. ??For accurate Potassium quantification in these patients send serum separator tube (gold top) for subsequent determinations. ??Contact the Clinical Chemistry Laboratory if there are any questions. Chloride 99 98 - 107 mmol/L [facility] Carbon Dioxide 25 22 - 31 mmol/L [facility] Anion Gap 9 5 - 15 mmol/L [facility] Calcium 9.0 8.5 - 10.5 mg/dL [facility] Est Glomerular Filtration Rate 74 >=60 mL/min/1. 73 m?? [facility] Comment: The eGFR was calculated using the CKD-EPI equation. As with all creatinine based estimates of kidney function, eGFR values calculated with the CKD-EPI equation are not accurate in patients with acute kidney failure, extremes of body mass or the acutely ill. [email or web address] eGFR 86 >=60 mL/min/1. 73 m?? [facility] Comment: The eGFR was calculated using the CKD-EPI equation. As with all creatinine based estimates of kidney function, eGFR values calculated with the CKD-EPI equation are not accurate in patients with acute kidney failure, extremes of body mass or the acutely ill. [email or web address] Blood specimen (specimen) 04/13/2020 3:39 AM EDT 04/13/2020 3:57 AM EDT Narrative Resulting Agency Comment Spec In Lab Isidoro Lay MD CHEMISTRY ORDERABLES [facility] [place] [address] * XR Pelvis (Generic) (04/12/2020 5:20 PM EDT) Anatomical Region Laterality Modality Pelvis N/A Digital Radiogra phy Narrative 04/12/2020 5:39 PM EDT EXAMINATION: XR PELVIS (GENERIC) CLINICAL HISTORY: s/p L SLIM Assess for position of L SLIM TECHNIQUE: 1 views of the pelvis COMPARISON: Intraoperative radiographs, April 12, 2020. FINDINGS: A new left hip arthroplasty is present. Alignment: The prosthesis is unchanged in alignment when compared to the intraoperative images. Complication: There is no loosening or fracture. Soft tissues: Expected early postsurgical air around the left hip joint. Impression Newly placed and uncomplicated left total hip arthroplasty. Thank you for letting us participate in the care of this patient. For questions regarding this report, please contact the number below. ? Electronically signed by: Melina Thorne [facility] ([phone]), at 04/12/2020 5:39 PM Procedure Note Melina Thorne MD - 04/12/2020 EXAMINATION: XR PELVIS (GENERIC) CLINICAL HISTORY: s/p L SLIM Assess for position of L SLIM TECHNIQUE: 1 views of the pelvis COMPARISON: Intraoperative radiographs, April 12, 2020. FINDINGS: A new left hip arthroplasty is present. Alignment: The prosthesis is unchanged in alignment when compared to the intraoperative images. Complication: There is no loosening or fracture. Soft tissues: Expected early postsurgical air around the left hip joint. Impression Newly placed and uncomplicated left total hip arthroplasty. Thank you for letting us participate in the care of this patient. Forquestions regarding this report, please contact the number below. Electronically signed by: Melina Thorne [facility]([phone]), at 04/12/2020 5:39 PM Isidoro Lay MD IMG DX ORDERABLES * Specimen to Pathology (04/12/2020 4:10 PM EDT) AP Specimen 04/12/2020 4:10 PM EDT 04/12/2020 4:[address] [facility] - 04/12/2020 4:10 PM EDT Specimen requisition ordered. ??Separate Pathology report to follow Isidoro Lay MD PATHOLOGY/CYTOLOGY O RDERABLES Performing Organization Address [facility] Co de Phone Number [facility] [place] [address] * XR Fluoro No Rad <1Hr - OR Use (04/12/2020 4:08 PM EDT) Narrative RAD - 04/12/2020 4:09 PM EDT This exam is auto-finalizing. No interpretation was done. Isidoro Lay MD IMG FLUORO ORDERABLE S Performing Organization Address City/[facility] Co de Phone Number [place], [place] * Surgical Pathology Report (04/12/2020 3:37 PM EDT) Final Diagnosis [id number] ? Location: 3WST; 0311; B The signing pathologist has (i) examined the relevant preparation(s) for the specimen(s) and (ii) rendered or confirmed the diagnosis(es). . ?Surgical Pathology DIAGNOSIS Bone, left hip, total hip arthroplasty: - Degenerative joint disease with underlying osteonecrosis Electronically signed by: ??Kayli WHELAN, Ace Rai Verified: ??04/19/2020 ?Dermatopatholog ist, Bone & Soft Tissue Pathologist Performed at: ??-[facility] Dept. of Pathology, [place], [place] SPECIMEN(S) SUBMITTED A - Left Femoral Head, excision (1) CLINICAL INFORMATION Left hip DJD SPECIMEN PROCESSING A - Labeled/Fixative: Left femoral head, fresh. Quantity/Size: ??Single, 6.9 x 5.8 x 5.4 cm. Tissue Description: Intact, Femoral head. Margin: Smooth. Articular surface: Significantly disrupted with areas detached from underlying bone, significant amount of cortical bone exposed. ??Eburnation: Absent. ??Osteophytes: Present. Cut surface: Heterogenous yellow red surface. 7.8 x 6.1 cm white yellow area directly below the articular surface. ??Subchondral Sclerosis: Present. ??Subchondral Cysts: Absent. Sections/Processi ng: Blocks submitted for decalcification: A1 and A2. [employer] sections in 2 cassettes labeled A1-A2. ??RT/viet 04/19/2020 2:[address] [facility] BONE STRUCTURE / Unknown 04/12/2020 3:37 PM EDT 04/12/2020 3:37 PM EDT Isidoro Lay MD PATHOLOGY/CYTOLOGY O RDERABLES [facility] [place] [address] documented in this encounter Visit Diagnoses Diagnosis S/p Left SLIM on 04/12/20 (Dr. Lay)- Primary Primary localized osteoarthrosis, pelvic region and thigh S/p Left SLIM on 04/12/20 (Dr. 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, left documented in this encounter Admitting Diagnoses Diagnosis Status post total hip replacement, left documented in this encounter Administered Medications Inactive Administered Medications - up to 3 most recent administrations Medication Order MAR Action Action Date Dose Rate Site acetaminophen (Tylenol) tablet 1,000 mg 1,000 mg, Oral, ONCE, 1 dose, On Leana 04/12/20 at 1400, Administer on arrival in Same Day Program, Day of Surgery (Day of Procedure), Routine Given 04/12/2020 1:52 PM EDT 1,000 mg acetaminophen (Tylenol) tablet 1,000 mg 1,000 mg, Oral, EVERY 8 HOURS SCHEDULED, First dose on Leana 04/12/20 at 1730, Until Discontinued, Maximum dose of acetaminophen is 4000 mg from all sources in 24 hours., Routine Given 04/13/2020 6:01 AM EDT 1,000 mg Given 04/12/2020 11:12 PM EDT 1,000 mg apixaban (Eliquis) tablet 2.5 mg 2.5 mg, Oral, 2 TIMES DAILY, 5 doses, First dose on Leana 04/12/20 at 2300, Last dose on Thu04/14/20 at 2100, Anticoagulant, Routine, Restricted anticoagulant, choose the most appropriate response: Approved indication of hip/knee replacement DVT prophylaxis Given 04/13/2020 8:13 AM EDT 2.5 mg Given 04/12/2020 11:00 PM EDT 2.5 mg ceFAZolin (Ancef) 2g in dextrose 5% 100 mL 2 g, Intravenous, EVERY 8 HOURS, 3 doses, First dose on Leana 04/12/20 at 1730, Last dose on Thu04/13/20 at 1430, Administer over 30 Minutes, Adjust to 4 hours from intraoperative dose. * Beta-lactam based antibiotics (eg. Ampicillin, Cefazolin, Aztreonam) should be administered within 4 hours of the preceding intraoperative dose. * Vancomycin, Fluoroquinolones, Clindamycin, Gentamicin, and Metronidazole should be administered within 8 hours of the preceding intraoperative dose., Recovery (Recovery-Hospital Unit), Indication for (Active or Suspected): Prophylaxis Given 04/13/2020 6:01 AM EDT 2 g 200 mL/hr Given 04/12/2020 11:26 PM EDT 2 g 200 mL/hr celecoxib (CeleBREX) capsule 200 mg 200 mg, Oral, 2 TIMES DAILY, First dose on Thu04/12/20 at 2300, Until Discontinued, Routine Given 04/13/2020 8:13 AM EDT 200 mg Given 04/12/2020 11:13 PM EDT 200 mg celecoxib (CeleBREX) capsule 400 mg 400 mg, Oral, ONCE, 1 dose, On Thu04/12/20 at 1400, Administer on arrival to Same Day Program, Day of Surgery (Day of Procedure), Routine Given 04/12/2020 1:52 PM EDT 400 mg dexamethasone (Decadron) tablet 4 mg 4 mg, Oral, DAILY, 2 doses, First dose on Thu04/13/20 at 0900, Last dose on Thu04/14/20 at 0900, Routine Given 04/13/2020 8:13 AM EDT 4 mg febuxostat (Uloric) tablet 40 mg 40 mg, Oral, DAILY, First dose on Thu04/13/20 at 0900, Until Discontinued, Routine Given 04/13/2020 8:13 AM EDT 40 mg gabapentin (Neurontin) capsule 300 mg 300 mg, Oral, ONCE, 1 dose, On Thu04/12/20 at 1400, Administer on arrival in Same Day Program, Day of Surgery (Day of Procedure), Routine Given 04/12/2020 1:52 PM EDT 300 mg gabapentin (Neurontin) capsule 300 mg 300 mg, Oral, NIGHTLY, First dose on Thu04/14/20 at 2100, Until Discontinued, Routine gabapentin (Neurontin) capsule 600 mg 600 mg, Oral, NIGHTLY, 2 doses, First dose on Thu04/12/20 at 2300, Last dose on Thu04/13/20 at 2100, Routine Given 04/12/2020 11:26 PM EDT 600 mg HYDROmorphone (DILAUDID) injection 0.4-0.6 mg 0.4-0.6 mg, Intravenous, EVERY 5 MIN PRN, Starting on Thu04/12/20 at 1649, Until Thu04/12/20 at 2020, Pain, Give 0.4 mg every 5 minutes PRN for mild to moderate pain (1-5) Give 0.6 mg every 5 minutes PRN for moderate to severe pain (6-10). Hold for respiratory rate less than 10 per minute. Maximum dose 4 mg over one hour. If multiple pain medications are ordered, start with hydromorphone or morphine and use fentanyl for breakthrough pain., PACU Recovery, Routine Given 04/12/2020 5:19 PM EDT 0.2 mg Given 04/12/2020 5:06 PM EDT 0.2 mg lactated ringers infusion 1,000 mL, at 100 mL/hr, Intravenous, CONTINUOUS, Starting on Leana 04/12/20 at 1400, Until Leana 04/12/20 at 202, Day of Surgery (Day of Procedure) New Bag 04/12/2020 2:02 PM EDT 1,000 mLs 100 mL/hr lactated ringers infusion 1,000 mL, at 100 mL/hr, Intravenous, CONTINUOUS, Starting on Thu04/12/20 at 1730, Until Thu04/13/20 at 1619, Recovery (Recovery-Hospital Unit) New Bag 04/12/2020 6:00 PM EDT 1,000 mLs 100 mL/hr lidocaine ((GLYDO)) 2 % gel 1 dose, Starting on Leana 04/12/20 at 1921, Until Leana 04/12/20 at 1930, Smita Tanner: cabinet override Given 04/12/2020 7:30 PM EDT 10 mLs metoprolol succinate XL (Toprol-XL) tablet 50 mg 50 mg, Oral, DAILY, First dose on Thu04/13/20 at 0900, Until Discontinued, DO NOT CRUSH OR OPEN Hold if SBP <100 or HR<50, Routine Given 04/13/2020 8:13 AM EDT 50 mg multivitamin with minerals (THERA-M) tablet 1 tablet 1 tablet, Oral, DAILY, First dose on Thu04/13/20 at 0900, Until Discontinued, Routine Given 04/13/2020 8:13 AM EDT 1 tablet oxyCODONE (Roxicodone) tablet 5-15 mg 5-15 mg, Oral, EVERY 4 HOURS PRN, Starting on Leana 04/12/20 at 1710, Until Thu04/13/20 at 1619, Pain, Give 5 mg for mild pain (1-3), 10 mg for moderate pain (4-6) or 15 mg for severe pain (7-10) May give an additional 5 mg in 30 minutes ONCE if pain not relieved., Routine Given 04/13/2020 7:02 AM EDT 10 mg Given 04/12/2020 11:12 PM EDT 10 mg Given 04/12/2020 7:31 PM EDT 5 mg pantoprazole EC (Protonix) tablet 20 mg 20 mg, Oral, DAILY, First dose on Thu04/13/20 at 0900, Until Discontinued, DO NOT CRUSH OR OPEN Given 04/13/2020 8:13 AM EDT 20 mg senna-docusate (Pericolace) 8.6-50 mg per tablet 2 tablet 2 tablet, Oral, 2 TIMES DAILY, First dose on Thu04/12/20 at 2300, Until Discontinued, Routine Given 04/13/2020 8:13 AM EDT 2 tablets sodium chloride 0.9 % (flush) flush 5 mL 5 mL, Intravenous, 2 TIMES DAILY, First dose on Thu04/12/20 at 2300, Until Discontinued, Recovery (Recovery-Hospital Unit), Routine Given 04/13/2020 8:13 AM EDT 5 mLs zolpidem (Ambien) tablet 10 mg 10 mg, Oral, NIGHTLY PRN, Starting on Thu04/12/20 at 2211, Until Thu04/13/20 at 1619, Sleep, Routine Given 04/12/2020 11:13 PM EDT 10 mg documented in this encounter Active and Recently Administered Medications Times are shown in EDT. Scheduled Medication Order 04/11/2020 04/12/2020 04/13/2020 acetaminophen (Tylenol) tablet 1,000 mg (COMPLETED) 1,000 mg, Oral, ONCE, 1 dose, On Leana 04/12/20 at 1400, Administer on arrival in Same Day Program, Day of Surgery (Day of Procedure), Routine 1352 (Given - Provider: Araseli Son RN) acetaminophen (Tylenol) tablet 1,000 mg 1,000 mg, Oral, EVERY 8 HOURS SCHEDULED, First dose on Leana 04/12/20 at 1730, Until Discontinued, Maximum dose of acetaminophen is 4000 mg from all sources in 24 hours., Routine 1730 (Not Given - Provider: Beth Zarate RN - Reason: See comment - Comment: given preop at 1400)2312 (Given - Provider: Genesis Keyes) 0601 (Given - Provider: Genesis Keyes)1400 (Due) apixaban (Eliquis) tablet 2.5 mg 2.5 mg, Oral, 2 TIMES DAILY, 5 doses, First dose on Leana 04/12/20 at 2300, Last dose on Thu04/14/20 at 2100, Anticoagulant, Routine, Restricted anticoagulant, choose the most appropriate response: Approved indication of hip/knee replacement DVT prophylaxis 2299 (Given - Provider: Genesis Keyes) 08 (Given - Provider: Flaca Perez RN) apixaban (Eliquis) tablet 5 mg 5 mg, Oral, 2 TIMES DAILY, First dose on Thu04/15/20 at 0900, Until Discontinued, Anticoagulant, Routine, Restricted anticoagulant, choose the most appropriate response: Continuation of ongoing therapy ceFAZolin (Ancef) 2g in dextrose 5% 100 mL 2 g, Intravenous, EVERY 8 HOURS, 3 doses, First dose on Leana 04/12/20 at 1730, Last dose on Thu04/13/20 at 1430, Administer over 30 Minutes, Adjust to 4 hours from intraoperative dose. * Beta-lactam based antibiotics (eg. Ampicillin, Cefazolin, Aztreonam) should be administered within 4 hours of the preceding intraoperative dose. * Vancomycin, Fluoroquinolones, Clindamycin, Gentamicin, and Metronidazole should be administered within 8 hours of the preceding intraoperative dose., Recovery (Recovery-Hospital Unit), Indication for (Active or Suspected): Prophylaxis 2325 (Given - Provider: Genesis Keyes) 06 (Given - Provider: Genesis Keyes) ceFAZolin (ANCEF) 3g in dextrose 5% 100 mL (COMPLETED) 3 g, Intravenous, EVERY 3 HOURS, 1 dose, First dose on Leana 04/12/20 at 1400, Administer over 30 Minutes, Redose after 3 hours., Intra-Operative (Intra-Procedure), Indication for (Active or Suspected): Prophylaxis 1428 (Given - Provider: Daria Mae CRNA) celecoxib (CeleBREX) capsule 200 mg 200 mg, Oral, 2 TIMES DAILY, First dose on Leana 04/12/20 at 2300, Until Discontinued, Routine 2312 (Given - Provider: Genesis Keyes) 08 (Given - Provider: Flaca Perez, SKY) celecoxib (CeleBREX) capsule 400 mg (COMPLETED) 400 mg, Oral, ONCE, 1 dose, On Leana 04/12/20 at 1400, Administer on arrival to Same Day Program, Day of Surgery (Day of Procedure), Routine 1352 (Given - Provider: Araseli Son, SKY) dexamethasone (Decadron) tablet 4 mg 4 mg, Oral, DAILY, 2 doses, First dose on Thu04/13/20 at 0900, Last dose on Thu04/14/20 at 0900, Routine 812 (Given - Provid er: Flaca Perez, SKY) febuxostat (Uloric) tablet 40 mg 40 mg, Oral, DAILY, First dose on Thu04/13/20 at 0900, Until Discontinued, Routine 812 (Given - Provid er: Flaca Perez, SKY) gabapentin (Neurontin) capsule 300 mg (COMPLETED) 300 mg, Oral, ONCE, 1 dose, On Leana 04/12/20 at 1400, Administer on arrival in Same Day Program, Day of Surgery (Day of Procedure), Routine 1352 (Given - Provider: Araseli Son, SKY) gabapentin (Neurontin) capsule 300 mg(Linked Group 1) 300 mg, Oral, NIGHTLY, First dose on 04/14/20 at 2100, Until Discontinued, Routine gabapentin (Neurontin) capsule 600 mg(Linked Group 1) 600 mg, Oral, NIGHTLY, 2 doses, First dose on Leana 04/12/20 at 2300, Last dose on Thu04/13/20 at 2100, Routine 2325 (Given - Provider: Genesis Keyes) ipratropium-albuteroL (COMBIVENT RESPIMAT) inhaler 1 puff 1 puff, Inhalation, 4 TIMES DAILY, First dose on Leana 04/12/20 at 2300, Until Discontinued, Must be primed prior to first administration., Routine, COVID-19 Related Druge Shortage: Currently the [facility] is experiencing a critical shortage of HFA inhalers. HFA inhalers are rescrited to COVID positive/rule out patients. Does this patient meet this criteria? Yes 2300 (Not Given - Provider: Genesis Keyes - Reason: Patient/family refused) 0900 (Not Given - Provider: Flaca Perez RN - Reason: Patient/family refused)1300 (Not Given - Provider: Flaca Perez RN - Reason: Patient/family refused) losartan (Cozaar) tablet 50 mg 50 mg, Oral, DAILY, First dose on Thu04/13/20 at 0900, Until Discontinued, Hold if SBP <120, Routine 0900 (Not Given - Provider: Flaca Perez RN - Reason: Order parameters not met) metoprolol succinate XL (Toprol-XL) tablet 50 mg 50 mg, Oral, DAILY, First dose on Thu04/13/20 at 0900, Until Discontinued, DO NOT CRUSH OR OPEN Hold if SBP <100 or HR<50, Routine 08 (Given - Provid er: Flaca Perez RN) multivitamin with minerals (THERA-M) tablet 1 tablet 1 tablet, Oral, DAILY, First dose on Thu04/13/20 at 0900, Until Discontinued, Routine 0813 (Given - Provid er: Flaca Perez RN) pantoprazole EC (Protonix) tablet 20 mg 20 mg, Oral, DAILY, First dose on Thu04/13/20 at 0900, Until Discontinued, DO NOT CRUSH OR OPEN 0813 (Given - Provid er: Flaca Perez RN) polyethylene glycoL (Miralax) packet 17 g 17 g, Oral, 2 TIMES DAILY, First dose on Thu04/12/20 at 2300, Until Discontinued, Routine 2300 (Not Given - Provider: Genesis Keyes - Reason: Patient/family refused) 0900 (Not Given - Provider: Flaca Perez RN - Reason: Patient/family refused) senna-docusate (Pericolace) 8.6-50 mg per tablet 2 tablet 2 tablet, Oral, 2 TIMES DAILY, First dose on Thu04/12/20 at 2300, Until Discontinued, Routine 2300 (Not Given - Provider: Genesis Keyes - Reason: Patient/family refused) 0813 (Given - Provider: Flaca Perez RN) sodium chloride 0.9 % (flush) flush 5 mL 5 mL, Intravenous, 2 TIMES DAILY, First dose on Thu04/12/20 at 2300, Until Discontinued, Recovery (Recovery-Hospital Unit), Routine 2300 (Not Given - Provider: Genesis Keyes - Reason: See comment - Comment: infusing) 0813 (Given - Provider: Flaca Perez, SKY) tranexamic acid (CYKLOKAPRON) 1,674 mg in sodium chloride 0.9% 116.74 mL (COMPLETED) 1,674 mg (15 mg/kg/dose ? 111.6 kg), Intravenous, ONCE, 1 dose, On Leana 04/12/20 at 1400, Administer over 30 Minutes, Day of Surgery (Day of Procedure) 1418 (New Bag - Provider: Daria Mae CRNA) Continuous Medication Order 04/11/2020 04/12/2020 04/13/2020 lactated ringers infusion (CANCELED) 1,000 mL, at 100 mL/hr, Intravenous, CONTINUOUS, Starting on Leana 04/12/20 at 1400, Until Leana 04/12/20 at 2021, Day of Surgery (Day of Procedure) 1402 (New Bag - Provider: Araseli Son RN) lactated ringers infusion 1,000 mL, at 100 mL/hr, Intravenous, CONTINUOUS, Starting on Leana 04/12/20 at 1730, Until Thu04/13/20 at 1619, Recovery (Recovery-Hospital Unit) 1800 (New Bag - Provider: Jordan Tanner RN) PRN Medication Order 04/11/2020 04/12/2020 04/13/2020 bisacodyL (Dulcolax) suppository 10 mg 10 mg, Rectal, DAILY PRN, Starting on Leana 04/12/20 at 2212, Until Thu04/13/20 at 1619, Constipation, Administer if needed per patient's routine or if no bowel movement within 48 hours to achieve: (1) One bowel movement every 48 hours, AND (2) without straining. If multiple PRN bowel medications ordered, start with lactulose, then oral bisacodyl, then bisacodyl suppository. Multiple medications may be given concomitantly for constipation., Routine bisacodyl EC (Dulcolax) tablet 10 mg 10 mg, Oral, 2 TIMES DAILY PRN, Starting on Leana 04/12/20 at 2212, Until Thu04/13/20 at 1619, Constipation, DO NOT CRUSH OR OPEN Administer if needed per patient's routine or if no bowel movement within 48 hours to achieve: (1) One bowel movement every 48 hours, AND (2) without straining. If multiple PRN bowel medications ordered, start with lactulose, then oral bisacodyl, then bisacodyl suppository. Multiple medications may be given concomitantly for constipation., Routine BUpivacaine-EPINEPHrine 0.25 %-1:200,000 injection (CANCELED) ONCE PRN, Starting on Leana 04/12/20 at 1504, Until Thu04/13/20 at 1619, Intra-Operative (Intra-Procedure), Routine 1504 (Given - Provider: Isidoro Lay MD - Comment: Joint cocktail: 50ml of 0.25% marcaine w/epi mixed with 30mg of ketorolac (30mg/ml) and 50mcg of clonidine (1000mcg/10ml). All of mixture injected into surgical site.) cloNIDine injection (CANCELED) ONCE PRN, Starting on Leana 04/12/20 at 1505, Until Thu04/13/20 at 1619, Intra-Operative (Intra-Procedure), Routine 1505 (Given - Provider: Isidoro Lay MD - Comment: Joint cocktail: 50ml of 0.25% marcaine w/epi mixed with 30mg of ketorolac (30mg/ml) and 50mcg of clonidine (1000mcg/10ml). All of mixture injected into surgical site.) cyclobenzaprine (Flexeril) tablet 10 mg 10 mg, Oral, 3 TIMES DAILY PRN, Starting on Thu04/12/20 at 2211, Until Thu04/13/20 at 1619, Muscle spasms, Routine HYDROmorphone (DILAUDID) injection 0.4-0.6 mg (CANCELED) 0.4-0.6 mg, Intravenous, EVERY 5 MIN PRN, Starting on Thu04/12/20 at 1649, Until Thu04/12/20 at 202, Pain, Give 0.4 mg every 5 minutes PRN for mild to moderate pain (1-5) Give 0.6 mg every 5 minutes PRN for moderate to severe pain (6-10). Hold for respiratory rate less than 10 per minute. Maximum dose 4 mg over one hour. If multiple pain medications are ordered, start with hydromorphone or morphine and use fentanyl for breakthrough pain., PACU Recovery, Routine 1706 (Given - Provider: Beth Zarate, SKY)1719 (Given - Provider: Beth Zarate, SKY) ketorolac (TORADOL) injection (CANCELED) ONCE PRN, Starting on Elana 04/12/20 at 1505, Until Thu04/13/20 at 1619, Intra-Operative (Intra-Procedure), Routine 1505 (Given - Provider: Isidoro Lay MD - Comment: Joint cocktail: 50ml of 0.25% marcaine w/epi mixed with 30mg of ketorolac (30mg/ml) and 50mcg of clonidine (1000mcg/10ml). All of mixture injected into surgical site.) lidocaine (XYLOCAINE) 10 mg/mL (1 %) injection 3 mg 3 mg (0.3 mL), Subcutaneous, ONCE PRN, 1 dose, Starting on Leana 04/12/20 at 2212, Until Thu04/13/20 at 1619, for discomfort with PIV insertion, Recovery (Recovery-Hospital Unit), Routine oxyCODONE (Roxicodone) tablet 5-15 mg 5-15 mg, Oral, EVERY 4 HOURS PRN, Starting on Leana 04/12/20 at 1710, Until Thu04/13/20 at 1619, Pain, Give 5 mg for mild pain (1-3), 10 mg for moderate pain (4-6) or 15 mg for severe pain (7-10) May give an additional 5 mg in 30 minutes ONCE if pain not relieved., Routine 1827 (Given - Provider: Smita Tanner RN)193 (Given - Provider: Smita Tanner RN)2312 (Given - Provider: Genesis Keyes) 0702 (Given - Provider: Genesis Keyes - Comment: PT prep) sodium chloride 0.9 % (flush) flush 5-20 mL 5-20 mL, Intravenous, EVERY 1 MIN PRN, Starting on Leana 7 at 2212, Until Thu04/13/20 at 1619, flush, Flush pertains to all indwelling lines. Flush per protocol found in the job aid using the link provided on this medication record., Recovery (Recovery-Hospital Unit), Routine zolpidem (Ambien) tablet 10 mg 10 mg, Oral, NIGHTLY PRN, Starting on Leana 04/12/20 at 2211, Until Thu04/13/20 at 1619, Sleep, Routine 2313 (Given - Provider: Genesis Keyes) No Frequency Medication Order 04/11/2020 04/12/2020 04/13/2020 lidocaine ((GLYDO)) 2 % gel (COMPLETED) 1 dose, Starting on Leana 04/12/20 at 1921, Until Leana 04/12/20 at 1930, Smita Tanner.: cabinet override 1929 (Given - Provider: Smita Tanner, RN - Comment: Given by MD Ovalle) Linked Groups Order Group 1: gabapentin (Neurontin) capsule 600 mgJump to med 600 mg, Oral, NIGHTLY, 2 doses, First dose on Leana 04/12/20 at 2300, Last dose on Thu04/13/20 at 2100, Routine Followed by gabapentin (Neurontin) capsule 300 mgJump to med 300 mg, Oral, NIGHTLY, First dose on Thu04/14/20 at 2100, Until Discontinued, Routine documented in this encounter Care Teams Oil Recovery Unit Operator Relationship Specialty Start Date End Date Alek Esparza MD [address] [place] [phone] PCP - General 09/03/10 04/05/23 documented as of this encounter
--- OUTSIDE RECORDS SUMMARY | 2024-08-29 14:13 | XMS_ITS | Encounter Summary ---
Author Organization [facility] [place] [address] Care Team Providers Care Optoelectronic Technician Name Role Phone Alek Esparza MD Primary Care Provider [phone] Encounter Details Date Type Department Care Team ([facility] Contact Info) Description 02/08/2021 Orders [place] [address] Baldomero Neal PA [address] [place] [address] Arthralgia, unspecified joint Social History Tobacco Use [...] joint documented in this encounter Care Teams Optoelectronic Technician Relationship Specialty Start Date End Date Alek Esparza MD [address] [place] [phone] PCP - General 09/03/10 04/05/23 documented as of this encounter
--- OUTSIDE RECORDS SUMMARY | 2024-08-29 14:13 | XMS_ITS | Encounter Summary ---
Author Organization [facility] Address [facility] [place] [address] Care Team Providers Care Vamp Strap Ironer Name Role Phone Alek Esparza MD Primary Care Provider [phone] Reason for Referral * Occupational Therapy (Routine) - Closed Specialty Diagnoses / Procedures Referred By Contyosvany t Referred To Contact Occupational Therapy Diagnoses Dupuytren's contracture Randell Matamoros MD [facility] [place] [address] [facility] [address] [place] [address] Referral ID Status Reason Start Date Expiration Date V isits Requested Visits Authorized [id number] Closed Evaluate and Treat 11/09/2020 11/09/2021 12 12 Reason for Visit * Reason Comments Follow-up Xiaflex manipulation Encounter Details Date Type Department Care Team (Late st Contact Info) Description 11/09/2020 9:45 AM EST Office Visit [place] [address] Randell Matamorso MD [facility] [place] [address] Dupuytren's contracture Social History Tobacco [...] this encounter Progress Notes * Marti Barroso - 11/09/2020 9:45 AM EST Plastic Surgery Hand Follow Up Note Procedure: Randell Matamoros M.D. CC: Dupuytren's Contracture HPI: Patient returns to clinic for manipulation s/p Xiaflex injection to right ring finger. Examination: There were no vitals taken for this visit. No acute distress Right ring finger: Impression: Enoc Esteban is a 60 y.o. male patient s/p xiaflex injection to right ring finger, here for manipulation. Tolerated well with no complication's. Plan: 1. Follow up in 3 months s/p xiaflex, right ring finger 2. Splint to wear for the next 3 months at night. IMarti, have performed the documentation for this encounter [...] fascia documented in this encounter Care Teams Vamp Strap Ironer Relationship Specialty Start Date End Date Alek Esparza MD [address] [place] [phone] PCP - General 09/03/10 04/05/23 documented as of this encounter
--- OUTSIDE RECORDS SUMMARY | 2024-08-29 14:13 | XMS_ITS | Encounter Summary ---
Author Organization Formerly [facility], [facility] [place] [address] Care Team Providers Care Cnc Cutting Operator Name Role Phone Alek Esparza MD Primary Care Provider [phone] Reason for Visit * Consultation (Routine) - Closed Specialty Diagnoses / Procedures Referred By Contyosvany sands Referred To Contact Rheumatology Diagnoses Arthralgia of multiple joints Chace Murphy MD [facility] [address] PHYSICAL MED[place] [address] [facility] [address] [place] [id number] Referral ID Status Reason Start Date Expiration Date V isits Requested Visits Authorized [id number] Closed Consult, Test & Treat 12/06/2020 12/06/2021 1 1 Encounter Details Date Type Department Care Team (Late st Contact Info) Description 12/12/2020 11:00 AM EST Office [place] [address] Baldomero Neal PA [address] [place] [address] Arthralgia, unspecified joint (Primary Dx); Dupuytren's contracture of right hand; History of cervical spinal surgery; History of lumbar surgery; Lumbar radiculopathy; Hypertension, unspecified type; TYRON (obstructive sleep apnea); Tophaceous gout; Chronic atrial fibrillation; Medication monitoring encounter; Positive MICHI (antinuclear antibody) Social History Tobacco [...] Sign Reading Time Taken Comments Blood Pressure 112/68 12/12/2020 10:46 AM EST Pulse 58 12/12/2020 10:46 AM EST Temperature 36.3 ??C (97.4 ??F) 12/12/2020 10:[address] Respiratory Rate - - Oxygen Saturation 98% 12/12/2020 10:46 AM EST Inhaled Oxygen Concentration - - Weight 114.8 kg (253 lb) 12/12/2020 10:46 AM EST Height 180.3 cm (5' 11) 12/12/2020 10:46 AM EST Body Mass Index 35.29 12/12/2020 10:46 AM EST documented in this encounter Progress Notes * Baldomero Neal PA - 12/12/2020 11:00 AM EST Rheumatology Outpatient Consultation Note Reason for Consult: The patient is seen at the request of Dr. Alek Esparza MD for evaluation and treatment of Chart review conducted prior to the visit [...] of Present Illness: Enoc Esteban is a 60 y.o. male who presents today for evaluation of arthralgias. Patient reports that for the last few years he hurts everywhere. He attributes things getting worse over time after being bitten by a tick. He denies any red warm swollen joints. He has pain in his spine frequently and he is going to start physical therapy for that soon. He denies any recent gout attacks. His history of chronic lumbar pain is followed by multiple providers. He reports it remains unimproved despite lumbar discectomy and left total hip arthroplasty in April 2020. Because some of his low back pain is reported as mechanical in origin he plans on utilizing physical therapy to help with these arthralgias. He reports anywhere between 30 minutes to 1 hour of morning stiffness. When he wakes up in the morning he takes 500 mg of Tylenol and a couple hydrocodone and then he feels fine. He denies any of the usual skin rashes, problems with his eyes, changes in going to the bathroom, red warm swollen joints. Review of Systems Constitutional: Negative for diaphoresis, fever, weight loss, malaise/fatigue and chills. Respiratory: Negative for hemoptysis and pleuritic pain. Gastrointestinal: Negative for abdominal discomfort, vomiting, nausea and steatorrhea. HENT: Negative for throat clearing, sinus pressure, hoarse voice, postnasal drip and voice change. Psychiatric/Behavioral: Negative for social aversion. Hematologic/Lymphatic: Negative. Allergic/Immunologic: Negative for immunocompromised state. Musculoskeletal: Positive for joint pain and stiffness. Negative for myalgias, joint swelling and fracture. Endocrine: Negative for polydipsia, polyphagia, polyuria and Cushingoid appearance. Cardiovascular: Negative. Neurological: Negative. Skin: Negative for dry skin, urticaria, blister and photosensitivity. Allergies Allergies Allergen Reactions ??? Allopurinol Rash Medications Current Outpatient Medications on File Prior to Visit Medication Sig Dispense Refill ??? hydrOXYzine (ATARAX) 50 mg Tablet TAKE ONE TABLET BY MOUTH EVERY DAY AT DINNER ??? HYDROcodone-acetaminophen (Tacoma) 10-325 mg Tablet TAKE 2 TABLETS BY [...] mg by mouth nightly as needed. ??? traZODone (Desyrel) 50 mg Tablet TAKE ONE TABLET BY MOUTH AT BEDTIME ??? gabapentin (NEURONTIN) 100 mg Capsule Take 1 capsule three times daily x7 days, then take 2 capsules three times daily x7 days, then take 3 capsules three times daily (Patient not taking: Reported on 12/06/2020) 90 capsule 12 No current facility-administered medications on file prior [...] PHALANGES performed by Rohan Duarte MD at [facility] ??? PRO LAMINOTOMY, LUMBAR DISK, 1 INTRSP N/A 10/25/2019 LAMINOTOMY, DECOMPRESSION, FORAMINOTOMY, LUMBAR (WRVU 13.18) [facility] ??? PRO MICROSURG TECHNIQUES, REQ OPER MICROSCOPE N/A 10/25/2019 MICROSCOPE USE (WRVU 3.46) performed by Denzel Madison MD at [facility] MAIN OR ??? PRO REMOVAL OF ELBOW BURSA Right 10/16/2014 EXCISION OF OLECRANON BURSA performed by Anupama Howard MD at [facility] ??? PRO TOTAL HIP ARTHROPLASTY Left 04/12/2020 TOTAL HIP ARTHROPLASTY, ANTERIOR APPROACH (WRVU 20.72) performed by Isidoro Lay MD at [facility] OR Family Hx: Family History Problem Relation Age of Onset ??? Cancer Father Social Hx: Social History Socioeconomic History ??? Marital status: Single Spouse name: None ??? Number of children: None ??? Years of education: None ??? Highest education level: None Occupational History ??? None Tobacco Use ??? Smoking status: Never Smoker [...] for sleep / pain ??? Sexual activity: None Other Topics Concern ??? None Social History Narrative ??? None Social Determinants of Health Financial Resource Strain: ??? Difficulty of Paying Living Expenses: Not on file Food Insecurity: ??? Worried About Running Out of Food in the Last Year: Not on file ??? Ran Out of Food in the Last Year: Not on file Transportation Needs: ??? Lack of Transportation (Medical): Not on file ??? Lack of Transportation (Non-Medical): Not on file Physical Activity: ??? Days of Exercise per Week: Not on file ??? Minutes of Exercise per Session: Not on file Physical Examination: BP 112/68 Pulse 58 Temp 36.3 ??C (97.4 ??F) (Temporal) Ht 180.3 cm (5' 11) Wt 114.8 kg (253 lb) SpO2 98% BMI 35.29 kg/m?? Musculoskeletal: Compensated gait Patient gets up [...] Conjunctivae normal. Cardiovascular: Rate and Rhythm: Normal rate. Heart sounds: Normal heart sounds. No friction rub. No gallop. Pulmonary: Effort: Pulmonary effort is normal. Breath sounds: Normal breath sounds. No wheezing, rhonchi or rales. Chest: Chest wall: No tenderness. Abdominal: Palpations: Abdomen is soft. Tenderness: There is no abdominal tenderness. There is no guarding or rebound. Hernia: No hernia is present. Musculoskeletal: General: No swelling, tenderness or deformity. Right lower leg: No edema. Left lower leg: No edema. Neurological: Mental Status: He is alert and oriented to person, place, and time. Motor: No weakness. Gait: Gait abnormal (compensated without assistance devices). Psychiatric: Mood and Affect: Mood normal. Behavior: [...] <=4.9 unit/mL <0.5 RF <=14 IU/mL <10 Studies: EXAMINATION: XR LUMBAR SPINE 2 OR 3 VIEWS (GENERIC) ?? CLINICAL HISTORY: evaluate dynamic instability Include lateral views : 1) Neutral; 2) Flexion; 3) Extension ?? TECHNIQUE:3 views of the lumbar spine ?? COMPARISON:None ?? FINDINGS: Lumbar spine neutral flexion and extension lateral views, were obtained. On the neutral view the lumbar vertebra are normally aligned. The vertebral body heights are maintained, there is disc space narrowing mildly at L3-4 and more prominently at L4-5 consistent with degenerative disc disease. There are anterior osteophytes at L4. The aorta is arterial sclerotic. ?? With flexion and extension positioning there is no evidence for listhesis or subluxation. No instability is demonstrated. ?? IMPRESSION Degenerative disc disease L3-4 and L4-5. ?? No evidence for subluxation or instability detected on the flexion and extension views ?? Thank you for letting us participate in the care of this patient. For questions regarding this report, please contact the number below. INATION: XR PELVIS AND HIP 2 VIEWS LEFT ?? CLINICAL HISTORY: History of hip replacement (as entered by ordering provider in the order requisition) ?? TECHNIQUE:Low AP view the pelvis. AP and frog leg lateral views of the left hip. ?? COMPARISON:Pelvis and left hip radiographs 04/12/2020. Intraoperative fluoroscopic images 04/12/2020. ?? FINDINGS: Status post left total hip arthroplasty. The femoral head component is centered within the acetabular cup. There is no periprosthetic fracture or bone resorption. ?? There is joint space narrowing with subchondral sclerosis and marginal osteophyte formation of the right hip which is unchanged. There is a small os acetabula versus intra-articular body along the lateral margin of the right hip. There is cam morphology of the right proximal femur which is unchanged and may predispose to clinical symptoms of femoral acetabular impingement. ?? Degenerative disc disease and facet arthropathy lower lumbar spine. ?? IMPRESSION 1. Uncomplicated left total hip arthroplasty. ?? 2. Unchanged right hip osteoarthropathy. Cam morphology of the proximal right femur may predispose to clinical symptoms of femoral acetabular impingement. ?? Thank you for letting us participate in the care of this patient. For questions regarding this report, please contact the number below. Impression/Recommendations : Enoc Esteban is a 60 y.o. male who presents today with widespread arthralgias, multifactorial in apatient with 30 to 60 minutes of morning stiffness with no findings on exam suggestive of inflammatory arthritis patient's arthralgias responsive to Tylenol and hydrocodone. Patient with gout/hyperuricemia clinically controlled. We will update screening laboratory studies today We will provide patient with a Medrol Dosepak to see whether or not this provides any relief in [id number] arthralgias and/or morning stiffness X-rays reviewed with patient. Follow-up 2 to 3 weeks for review of laboratory studies and to monitor patient's response to the Medrol Dosepak further changes in his treatment to be determined. Patient in agreement with this plan. Thank you for the opportunity to help this pleasant patient. documented in this encounter Plan of Treatment Not on file documented as of this encounter Procedures Procedure Name Priority Date/Time Associated Diagnosis Comments HC VENIPUNCTURE Routine 12/12/2020 12:16 PM EST Medication monitoring encounter Arthralgia, unspecified joint EXTRACTABLE NUCLEAR ANTIGEN (KRISSY) AB Routine 12/12/2020 12:16 PM EST HC CYCLIC CITRULLINE PEPTIDE Routine 12/12/2020 12:16 PM EST Medication monitoring encounter Arthralgia, unspecified joint DNA ANTIBODY (DOUBLE-STRANDED) Routine 12/12/2020 12:16 PM EST HEMOGRAM Routine 12/12/2020 12:16 PM EST Medication monitoring encounter Arthralgia, unspecified joint DIFFERENTIAL, AUTOMATED Routine 12/12/2020 12:16 PM EST Medication monitoring encounter Arthralgia, unspecified joint HC ESR-SEDIMENTATION RATE, BLOOD Routine 12/12/2020 12:16 PM EST Medication monitoring encounter Arthralgia, unspecified joint HC CBC,PLT & AUTO DIFF Routine 12:16 PM EST Medication monitoring encounter Arthralgia, unspecified joint HC RHEUMATOID FACTOR Routine 12/12/2020 12:16 PM EST Medication monitoring encounter Arthralgia, unspecified joint C3 COMPLEMENT Routine 12/12/2020 12:16 PM EST C4 COMPLEMENT Routine 12/12/2020 12:16 PM EST HC PCH ANATITRE (ANDPATTERN) Routine 12/12/2020 12:16 PM EST Medication monitoring encounter Arthralgia, unspecified joint HC URIC ACID, SERUM Routine 12/12/2020 1 2:16 PM EST Medication monitoring encounter Arthralgia, unspecified joint COMPREHENSIVE METABOLIC PANEL Routine 12/12/2020 12:16 PM EST Medication monitoring encounter Arthralgia, unspecified joint documented in this encounter Results * DNA Antibody (Double-Stranded) (12/12/2020 12:16 PM EST) dsDNA Ab <12.3 <30.0 (Negative) IU/mL [facility] Comment: Negative for dsDNA antibody by enzyme immunoassay. No further testing recommended. Test Performed by: [facility] [address] [place] [address] [employer] Technician: Teofilo Worthington M.D. Ph.D.; CLIA# [id number] Blood specimen (specimen) Venous Draw / Unknown 12/12/2020 12:16 PM EST 12/17/2020 11:17 AM EST Narrative Resulting Agency Comment Spec In Lab [facility] SEND OUT BRENDON MUELL[facility] [place] [address] * Extractable Nuclear Antigen (KRISSY) Ab (12/12/2020 12:16 PM EST) KRISSY Ab Test ?Result ?Flag ??Unit ??RefValue Ab to Extractable Nuclear Ag Eval,S ??SS-A/Ro Ab, IgG, S ?<0.2 ?U ? <1.0 (Negative) ??SS-B/La Ab, IgG, S ?<0.2 ?U ? <1.0 (Negative) ??Sm Ab, IgG, S ? <0.2 ?U ? <1.0 (Negative) ??WAREHOUSE FREIGHT HANDLER Ab, IgG, S ?0.2 ? U ? <1.0 (Negative) ??Scl 70 Ab, IgG, S ? 0.2 ? U ? <1.0 (Negative) ??Pearl 1 Ab, IgG, S ? <0.2 ?U ? <1.0 (Negative) ?Test Performed by: ?[facility] ?[address] [place] [address] ?[employer] Technician: Teofilo Worthington M.D. Ph.D.; CLIA# [id number] [facility] Blood specimen (specimen) Venous Draw / Unknown 12/12/2020 12:16 PM EST 12/17/2020 11:17 AM EST Narrative Resulting Agency Comment Spec In Lab [facility] SEND OUT ORDERA BLES Performing Organization Address [facility]/ZIP Co de Phone Number [facility] [place] [address] * C3 Complement (12/12/2020 12:16 PM EST) Complement C3 93 90 - 180 mg/dL [facility] Blood specimen (specimen) Venous Draw / Unknown 12/12/2020 12:16 PM EST 12/12/2020 12:37 PM EST Narrative Resulting Agency Comment Spec In Lab Bal[facility] CHEMISTRY ORDERABLE S Performing Organization Address [facility]/ZIP Co de Phone Number [facility] [place] [address] * C4 Complement (12/12/2020 12:16 PM EST) Complement C4 19 10 - 40 mg/dL [facility] Blood specimen (specimen) Venous Draw / Unknown 12/12/2020 12:16 PM EST 12/12/2020 12:37 PM EST Narrative Resulting Agency Comment Spec In Lab Baldom[facility] CHEMISTRY ORDERABLE S Performing Organization Address City/[facility]/[place] [address] * Differential, Automated (12/12/2020 12:16 PM EST) Neutrophil % 42.8 % [facility] Neutrophil Absolute 2.67 1.70 - 6.10 x10(3)/[facility] Lymph % 40.4 % [facility] Lymphocytes Abs 2.5 0.9 - 3.2 x10(3)/[facility] Monocyte % 11.7 % [facility] Monocyte Abs 0.7 0.3 - 0.9 x10(3)/[facility] Eos % 3.8 % [facility] Eosinophils Abs 0.2 0.0 - 0.4 x10(3)/[facility] Basophil % 1.1 % [facility] Baso Absolute 0.1 0.0 - 0.1 x10(3)/[facility] Immature Gran % 0.20 % [facility] Comment: Immature granulocytes(IG's)percentage and absolute count will include metamyelocytes, myelocytes, and promyelocytes. Blood smears from CBCs yielding IG's will be scanned manually for concordance. If this scan disagrees with the automated IG or if promyelocytes are noted, a manual differential will be performed. Immature Gran Absolute 0.01 0.00 - 0.04 x10(3)/[facility] Blood specimen (specimen) 12/12/2020 12:16 PM EST 12/12/2020 12:34 PM EST Narrative Resulting Agency Comment Spec In Lab Baldom[facility] HEMATOLOGY ORDERABL ES Performing Organization Address City/[facility]/ZIP [place] [address] * (ABNORMAL) Hemogram (12/12/2020 12:16 PM EST) [facility] White Blood Cell 6.2 4.0 - 9.5 x10(3)/[facility] Red Blood Cell 4.03(L) 4.58 - 5.54 x10(6)/[facility] Hemoglobin 13.9 13.7 - 16.5 gm/dL [facility] Hematocrit 41.3 40.5 - 48.5 % [facility] Mean Cell Volume 102.5(H) 82.9 - 93.1 fL [facility] Mean Cell Hemoglobin 34.5(H) 27.5 - 32.1 pg [facility] Mean Cell Hemoglobin Concentration 33.7 32.0 - 35.7 gm/dL [facility] Platelet 219 145 - 357 x10(3)/[facility] RDW Standard Deviation 51.8(H) 36.0 - 45.0 [facility] RDW coefficient of variation 13.6 11.4 - 13.8 % [facility] Mean Platelet Volume 10.1 7.6 - 12.9 [facility] NRBC% auto 0.0 % [facility] NRBC Absolute 0.000 0.000 - 0.000 x10(3)/[facility] Blood specimen (specimen) 12/12/2020 12:16 PM EST 12/12/2020 12:34 PM EST Narrative Resulting Agency Comment Spec In Lab Bal[facility] HEMATOLOGY ORDERABL ES [facility] [place] [address] * CRP, acute inflammation (12/12/2020 12:16 PM EST) [facility] C-Reactive Protein 1.7 <=4.9 mg/L [facility] Blood specimen (specimen) 12/12/2020 12:16 PM EST 12/12/2020 12:34 PM EST Narrative Resulting Agency Comment Spec In Lab Teofilo Cotton MD CHEMISTRY ORDERABLES Performing Organization Address [facility]/ZIP Co de Phone Number [facility] [place] [address] * Sedimentation rate (12/12/2020 12:16 PM EST) Sedimentation Rate Automated <3 2 - 37 mm/hr [facility] Comment: Effective September 21, 2019 new capillary photometric technology has resulted in a change in reference ranges. It is recommended that each ESR result be reviewed with its own age appropriate reference range. Blood specimen (specimen) 12/12/2020 12:16 PM EST 12/12/2020 12:34 PM EST Narrative Resulting Agency Comment Spec In Lab Teofilo Cotton MD HEMATOLOGY ORDERABLE S Performing Organization Address [facility]/ZIP Co de Phone Number [facility] [place] [address] * (ABNORMAL) Comprehensive metabolic panel (non-fasting) (12/12/2020 12:16 PM EST) Glucose 110 65 - 199 mg/dL [facility] Comment:Diabetes: >=200 mg/d L plus symptoms Blood Urea Nitrogen 11 10 - 20 mg/dL [facility] Creatinine 1.29 0.80 - 1.50 mg/dL [facility] Sodium 141 135 - 145 mmol/L [facility] Potassium 5.3(H) 3.5 - 5.0 mmol/L [facility] Comment: Please note: ??Patients with WBC >100,000 may have falsely elevated Potassium levels. ??For accurate Potassium quantification in these patients send serum separator tube (gold top) for subsequent determinations. ??Contact the Clinical Chemistry Laboratory if there are any questions. Chloride 105 98 - 107 mmol/L [facility] Carbon Dioxide 28 22 - 31 mmol/L [facility] Anion Gap 8 5 - 15 mmol/L [facility] Calcium 9.6 8.5 - 10.5 mg/dL [facility] Protein, Total 6.7 6.1 - 8.0 gm/dL [facility] Albumin 4.4 3.2 - 5.2 gm/dL [facility] Aspartate Aminotransferase 49(H) 0 - 39 unit/L [facility] Alanine Aminotransferase 50 0 - 55 unit/L [facility] Alkaline Phosphatase 53 40 - 130 unit/L [facility] Bilirubin, Total 0.4 0.2 - 1.3 mg/dL [facility] Est Glomerular Filtration Rate 61 >=60 mL/min/1. 73 m?? [facility] Comment: This patient? s estimated glomerular filtration rate (eGFR) is between 61 mL/min/1.73 m2 (patients with less muscle mass [...] be advised. Assignment of CKD stage 1 ? 5 for patients with an eGFR near the transition point between stages may be based on clinical assessment of muscle mass and symptoms in addition to eGFR. Blood specimen (specimen) 12/12/2020 12:16 PM EST 12/12/2020 12:34 PM EST Narrative Resulting Agency Comment Spec In Lab Teofilo Cotton MD CHEMISTRY ORDERABLES [facility] [place] [address] * Uric acid (12/12/2020 12:16 PM EST) Uric Acid 4.6 3.5 - 8.5 mg/dL [facility] Blood specimen (specimen) 12/12/2020 12:16 PM EST 12/12/2020 12:34 PM EST Narrative Resulting Agency Comment Spec In Lab Teofilo Cotton MD CHEMISTRY ORDERABLES [facility] [place] [address] * (ABNORMAL) MICHI ([facility]/APD/[facility]) (12/12/2020 12:16 PM EST) MICHI Ab Screen Test ?Result ? Flag ??Unit ??RefValue Antinuclear Ab, HEp-2 Substrate, ?Positive 1:320 ??@ ?<1:80 (Negative) ??S ? ADDITIONAL INFORMATION --------- ?Method: Immunofluorescence using HEp-2 cellular substrate. ??MICHI Titer: ?1:320 ??MICHI Pattern: ?Homogeneous ?Test Performed by: ?[facility] ?[address] [place] [address] ?[employer] Technician: Teofilo Worthington M.D. Ph.D.; CLIA# [id number] ([id number]) [facility] Blood specimen (specimen) 12/12/2020 12:16 PM EST 12/12/2020 1:29 PM EST Narrative Resulting Agency Comment Spec In Lab Teofilo Cotton MD LAB SEND OUT ORDERAB LES Performing Organization Address [facility] Co de Phone Number [facility] [place] [address] * Cyclic Citrullinated Peptide (12/12/2020 12:16 PM EST) Cyclic Citrulline Peptide <0.5 <=4.9 unit/mL [facility] Blood specimen (specimen) 12/12/2020 12:16 PM EST 12/12/2020 12:34 PM EST Narrative Resulting Agency Comment Spec In Lab Teofilo Cotton MD CHEMISTRY ORDERABLES Performing Organization Address [facility] Co de Phone Number [facility] [place] [address] * Rheumatoid factor, quant (12/12/2020 12:16 PM EST) Rheumatoid Factor <10 <=14 IU/mL [facility] Blood specimen (specimen) 12/12/2020 12:16 PM EST 12/12/2020 12:34 PM EST Narrative Resulting Agency Comment Spec In Lab Teofilo Cotton MD CHEMISTRY ORDERABLES Performing Organization Address [facility] Co de Phone Number [facility] [place] [address] documented in this encounter Visit Diagnoses Diagnosis Arthralgia, unspecified joint- Primary Dupuytren's contracture of right hand Contracture of palmar fascia History of cervical spinal surgery Personal history of surgery to other organs History of lumbar surgery Lumbar radiculopathy Thoracic or lumbosacral neuritis or radiculitis, unspecified Hypertension, unspecified type TYRON (obstructive sleep apnea) Obstructive sleep apnea (adult) (pediatric) 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
--- OUTSIDE RECORDS SUMMARY | 2024-08-29 14:13 | XMS_ITS | Encounter Summary ---
Author Organization [facility] [place] [address] Care Team Providers Care Wrecking Crane Engine Operator Name Role Phone Alek Esparza MD Primary Care Provider [phone] Reason for Referral * Consultation (Routine) - Closed Specialty Diagnoses / Procedures Referred By Contac t Referred To Contact Rheumatology Diagnoses Arthralgia of multiple joints Chace Murphy MD [facility] [place] [address] [facility] Rheumatology [address] [place] [phone] Referral ID Status Reason Start Date Expiration Date V isits Requested Visits Authorized [id number] Closed Consult, Test & Treat 12/06/2020 12/06/2021 1 1 * Physical Therapy (Routine) - Specialty Diagnoses / Procedures Referred By Contac t Referred To Contact Physical Therapy Diagnoses Low back pain, non-specific Lumbar spondylosis Sacroiliac dysfunction Chace Murphy MD [facility] [place] [address] Referral ID Status Reason Start Date Expiration Date V isits Requested Visits Authorized [id number] Evaluate and Treat 12/06/2020 06/04/2021 12 12 Reason for Visit * Reason Comments Back Pain * Consultation (Routine) - Closed Specialty Diagnoses / Procedures Referred By Contac t Referred To Contact [facility] Diagnoses Other intervertebral disc degeneration, lumbar region Spine - Low back pain w/ thigh pain / ?imaging Alek Esparza MD [address] [place] [phone] [facility] [place] [phone] Referral ID Status Reason Start Date Expiration Date V isits Requested Visits Authorized [id number] Closed Consult, Test & Treat [facility] PCP Updated and/or Approved 10/16/2020 10/16/2021 6 6 Encounter Details Date Type Department Care Team (Late st Contact Info) Description 12/06/2020 11:00 AM EST Office Visit [facility] [place] [phone] Chace Murphy MD [facility] [address] [place]ICAL [place] [address] Low back pain, non-specific; Lumbar spondylosis; Sacroiliac dysfunction; Arthralgia of multiple joints Social History Tobacco [...] Sign Reading Time Taken Comments Blood Pressure 124/72 12/06/2020 10:43 AM EST Pulse 66 12/06/2020 10:43 AM EST Temperature 36.7 ??C (98.1 ??F) 12/06/2020 10:[address] Respiratory Rate - - Oxygen Saturation - - Inhaled Oxygen Concentration - - Weight 108.9 kg (240 lb) 12/06/2020 10:43 AM EST Height 180.3 cm (5' 11) 12/06/2020 10:43 AM EST Body Mass Index 33.47 12/06/2020 10:43 AM EST documented in this encounter Progress Notes * Chace Murphy MD - 12/06/2020 11:00 AM EST Images from the original note were not included. Chief Complaint Patient presents with ??? Back Pain Subjective: Enoc Esteban is a 60 y.o. male who presents for Physical Medicine and Rehabilitation consultation,at the request of Alek Esparza MD. He presents with primary symptoms of generalized low lumbar pain with right-sided predominance. The patient notes increased low back pain and stiffness with qc lab technician mobility. He denies any recurrent left lower extremity pain radiation following the L4-[id number] and microdiscectomy in October 2019. He reports improved mobility, no further left groin pain and a decrease in left- sided low back pain following total hip replacement in April 2020. Symptom onset: The patient reports a several year history of generalized low lumbar pain. He seems to recall a remote slip accompanied by a pop in the back. There has been no overall change in low back pain symptoms over time. The current pain symptoms are worst in the morning and have remained unchanged over time. Pain characteristics: Constant, dull in quality, 5/10 in intensity. Exacerbating factors: Rolling over in bed and forward flexion. Alleviating factors: Hydrocodone and general physical activity. The patient denies lower extremity pain radiation, numbness, tingling or bowel/bladder dysfunction.He denies focal lower extremity weakness, but can experience subjective heaviness throughout the lower extremities. Gait is affected by qc lab technician stiffness. Current treatment: Hydrocodone and Tylenol. These provide partial relief. The patient reports a number of additional somatic complaints. He states that all of his joints aresore and adds, I got arthritis all through me. He has been followed by rheumatology in the past, but has not been seen there since July 2018. He reports pain in the digits, elbows, shoulders, knees and ankles. He can experience lightheadedness in the morning. 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 He is disabled. Clinical materials reviewed: 1. Clinical office note of Alek Esparza MD, 10/11/2020. The patient presented with chronic leftlow back pain, lower extremity pain radiation and tingling. Symptoms were decreased with the use ofhydrocodone. He was reported as being unable to do physical therapy. It was noted that the patient's sleep apnea was untreated. On a subsequent telephone call to the primary care office, the patient stated that he wanted a re-evaluation in the [facility], but declined follow-up with his operativeneurosurgeon, Denzel Madison MD. 2. Operative note of Isidoro Lay MD, 04/12/2020. The patient underwent left total hip replacementfor treatment of severe osteoarthrosis of the left hip. 3. Clinical office note of Denzel Madison MD, 11/23/2019. Patient reported post- operative resolution of left leg pain. He had residual left hip pain with radiation to the groin. 4. Operative note of Denzel Madison MD, 10/25/2019. Patient underwent L4-L5 hemilaminectomy and microdiscectomy. 5. Clinical office note of CARMELINA Moore, 07/19/2019. The patient was seen for consultation regarding a 10-year history of left lumbar radiculopathy and left L4-L5 disc herniation. The patient had experienced a recurrence of leg pain 3-4 months prior to the visit. Lumbar MRI demonstrated the presence of moderate central stenosis at L4-L5 and compression of the L5 nerve root. The plan was to pursue surgical consultation. Past Medical History: Diagnosis Date ??? Antiplatelet [...] PHALANGES performed by Rohan Duarte MD at [facility] ??? PRO LAMINOTOMY, LUMBAR DISK, 1 INTRSP N/A 10/25/2019 LAMINOTOMY, DECOMPRESSION, FORAMINOTOMY, LUMBAR (WRVU 13.18) [facility] ??? PRO MICROSURG TECHNIQUES, REQ OPER MICROSCOPE N/A 10/25/2019 MICROSCOPE USE (WRVU 3.46) performed by Denzel Madison MD at [facility] OR ??? PRO REMOVAL OF ELBOW BURSA Right 10/16/2014 EXCISION OF OLECRANON BURSA performed by Anupama Howard MD at [facility] ??? PRO TOTAL HIP ARTHROPLASTY Left 04/12/2020 TOTAL HIP ARTHROPLASTY, ANTERIOR APPROACH (WRVU 20.72) performed by Isidoro Lay MD at [facility] MAIN OR Current Outpatient Medications on File Prior to Visit Medication Sig Dispense Refill ??? hydrOXYzine (ATARAX) 50 mg Tablet TAKE ONE TABLET BY MOUTH EVERY DAY AT DINNER ??? traZODone (Desyrel) 50 mg Tablet TAKE ONE TABLET BY MOUTH AT BEDTIME ??? HYDROcodone-acetaminophen ([place]) 10-325 mg Tablet TAKE 2 TABLETS BY [...] daily. ??? predniSONE (Deltasone) 10 mg Tablet TAKE [...] mg by mouth nightly as needed. ??? gabapentin (NEURONTIN) 100 mg Capsule Take 1 capsule three times daily x7 days, then take 2 capsules three times daily x7 days, then take 3 capsules three times daily (Patient not taking: Reported on 12/06/2020) 90 capsule 12 No current facility-administered medications on file prior to visit. Allergies Allergen Reactions ??? Allopurinol Rash Review of Systems: As above. [facility] Center Response Trends Patient-reported scores: myD-H Spine Questionnaire responses 10/03/2014 05/09/2020 12/06/2020 Oswestry Disability Index (Range: 0-100) - - 30 (Moderate disability) PROMIS-10 Physical Health Score 47.7 37.4 34.9 PROMIS-10 Mental Health Score 43.5 36.3 43.5 Objective: BP 124/72 Pulse 66 Temp 36.7 ??C (98.1 ??F) Ht 180.3 cm (5' 11) Wt 108.9 kg (240 lb) BMI33.47 kg/m?? Obese male in no apparent distress. Alert and oriented x3. Affect is constricted. Pain behaviors include jerking to palpatory examination. Carmencita's signs are absent. Gait and station: Gait is nonantalgic. The patient is able to perform bilateral toe walking. He is unable to ambulate on the heels. Thoracic kyphosis is decreased. Lumbar motion: Lumbosacral excursion measures 6.5 cm on modified Emir's testing. Patient reportsgeneralized low lumbosacral pain with active lumbar flexion. There is no pain with extension. Pelvic alignment/motion: Pelvis is posteriorly rotated. Standing iliac crest palpation is elevated on the right. There is right-sided tenderness with the assessment. Sitting and standing flexion tests are positive on the left. There is apparent lengthening of right lower extremity with supine/long sitting. Palpation: Tenderness is noted over left lateral inferior ribs, bilateral quadratus lumborum, bilateral sacroiliac joints and left gluteus medius. There is tenderness over left hip greater trochanterand generalized tenderness throughout right central buttock and right hip bursae. LE flexibility: Marked tightness is noted in bilateral hamstrings, glutei, iliotibial bands and rectus femoris. There is additional tightness in left hip flexors to a lesser degree. Pelvic/SI provocation: Patient reports bilateral iliac pain to pelvic compression and left iliac pain to pelvic shear. Lorin is positive on the left for ipsilateral sacroiliac joint pain. Motor: Bilateral hip abductors 4/5 right, 4-/5 and associated with pain on the left. Lower extremity motor examination is otherwise 5/5 throughout. Sensation: Paresthesias are elicited to light touch throughout the plantar feet. Lower extremity sensation is otherwise intact. Straight leg raising: Negative bilaterally in sitting and supine. Muscle stretch reflexes: Unobtainable for quadriceps, 1+ bilaterally for Achilles tendon. Tone normal throughout the lower extremities. No ankle clonus. Assessment: Encounter Diagnoses Name Primary? Low back pain, non-specific ??? Lumbar spondylosis ??? Sacroiliac dysfunction ??? Arthralgia of multiple joints The patient is a 60-year-old male with a history of chronic low lumbar pain that has remained unchanged despite lumbar discectomy and left total hip arthroplasty earlier this year. In addition to lowback pain, he reports fairly widespread arthralgias which are suggestive of a possible systemic rheumatological disorder. The patient is known to [facility] Rheumatology and will be asked to return there for follow-up consultation. The patient's chronic low back pain is most likely mechanical in origin. He demonstrates clinical evidence of sacroiliac mechanical dysfunction and, given his age, past history and previous imaging, most likely has a facet-mediated component to his pain, as well. We discussed the fact that he is obstructive sleep apnea is untreated, as he cannot or will not tolerate a CPAP device. musculoskeletal pain symptoms are likely to be increased secondary to poor sleep quality. In an attempt to help determine the extent to which the current symptoms may be driven by sacroiliac mechanical dysfunction, the patient [...] be bilaterally symmetric post-treatment. Low back pain increased from a level of 5/10 pre-treatment to 6/10 post- treatment, but was centralized and limited to the lumbosacral junction. I recommend a trial of outpatient physical therapy and have explained the rationale for such treatment to the patient. He would like to proceed. A prescription has been written for postural samaritan, manual therapy to the pelvis and sacroiliac joints to restore and maintain normal lumbopelvic rhythm, pelvic alignment and rotation, flexibility training with attention to iliopsoas, quadratus lumborum, bilateral glutei, hamstrings and quadriceps, progression to pelvic stabilization, core strengthening and gentle reconditioning. Consideration will be given to diagnostic/therapeutic sacroiliac joint steroid injection and diagnostic lumbar medial branch blocks and possible radiofrequency ablation, depending on the response to PT treatment and the further evolution of the patient's symptoms and examination. Plan: 1. Outpatient physical therapy. A prescription has been provided to the patient for treatment in his local area. 2. Rheumatology consultation for polyarthralgias. 3. Follow-up here in 8 weeks [address] PT treatment. Dr. Esparza's consultation request is greatly appreciated. Total time spent on date of encounter = 70 minutes (minus manual therapy). Chace Murphy MD, MS 12/06/2020 documented in this encounter Plan of Treatment Scheduled Referrals Name Type Priority Associated Diagnoses Orde r Schedule Referral to Physical Therapy Outpatient Referral Routine Low back pain, non-specific Lumbar spondylosis Sacroiliac dysfunction Ordered: 12/06/2020 Referral to Rheumatology Outpatient Referral Routine Arthralgia of multiple joints Ordered: 12/06/2020 documented as of this encounter Visit Diagnoses Diagnosis Low back pain, non-specific Lumbar spondylosis Lumbosacral spondylosis without myelopathy Sacroiliac dysfunction Disorders of sacrum Arthralgia of multiple joints Pain in joint, multiple sites documented in this encounter Care Teams Wrecking Crane Engine Operator Relationship Specialty Start Date End Date Alek Esparza MD [address] [place] [phone] PCP - General 09/03/10 04/05/23 documented as of this encounter
--- OUTSIDE RECORDS SUMMARY | 2024-08-29 14:13 | XMS_ITS | Encounter Summary ---
Author Organization [facility] [place] [address] Care Team Providers Care Recruiting Associate Name Role Phone Alek Esparza MD Primary Care Provider [phone] Reason for Visit * Auth/Cert Specialty Diagnoses [...] Expiration Date Visits Re quested Visits Authorized [id number] 1 1 Encounter Details Date Type Department Care Team (Late st Contact Info) Description 04/02/2021 10:30 AM EDT Ancillary Procedure [place] [phone] Imer Monet MD [facility] [place] [address] Pain Social History Tobacco Use Types Packs/Day Years [...] ONLY PAIN CLINIC C ARM Routine 04/02/2021 4:02 PM EDT Pain documented in this encounter Results * Film Library- Storage Only pain Clinic C-Arm (04/02/2021 4:02 PM EDT) Narrative [facility] - 04/02/2021 4:02 PM EDT See PACS for result report. Imer Monet MD IMG FILM LIBRARY ORD ERABLES Performing Organization Address City/State/[facility] Co de Phone Number [place], [place] documented in this encounter Visit Diagnoses Diagnosis Pain Generalized pain documented in this encounter Care Teams Recruiting Associate Relationship Specialty Start Date End Date Alek Esparza MD [address] [place] [phone] PCP - General 09/03/10 04/05/23 documented as of this encounter
--- OUTSIDE RECORDS SUMMARY | 2024-08-29 14:13 | XMS_ITS | Encounter Summary ---
Author Organization [facility] Address [facility] [address] Care Team Providers Care Container Crane Operator Name Role Phone Alek Esparza MD Primary Care Provider [phone] Reason for Visit * Reason Comments Follow-up Encounter Details Date Type Department Care Team (Late st Contact Info) Description 04/08/2021 1:00 PM EDT Office Visit [place] [phone] Chace Murphy MD [facility] [address] PHYSICAL [place]IC[place] [address] Low back pain, non-specific; Lumbar spondylosis; Sacroiliac [...] Sign Reading Time Taken Comments Blood Pressure 117/63 04/08/2021 1:06 PM EDT Pulse 50 04/08/2021 1:06 PM EDT Temperature - - Respiratory Rate - - Oxygen Saturation - - Inhaled Oxygen Concentration - - Weight 108.9 kg (240 lb) 04/08/2021 1:06 PM EDT Height 180.3 cm (5' 11) 04/08/2021 1:06 PM EDT Body Mass Index 33.47 04/08/2021 1:06 PM EDT documented in this encounter Progress Notes * Chace Murphy MD - 04/08/2021 1:00 PM EDT Chief Complaint Patient presents with ??? Follow-up Interim history: The patient was referred for diagnostic lumbar medial branch blocks, but was unable to tolerate needle placement. The patient states, I hate needles. He reports generalized low lumbar pain with right-sided predominance. He continues to experience polyarthralgias and states that pain is worst in the shoulders and rightlow back. He reports additional pain in the knees, wrists, ankles and feet. At present, pain is constant and is graded as 3.5-4/10. Exacerbating factors: Carrying items, stair climbing, prolonged sitting, prolonged standing or prolonged ambulation. Alleviating factors: Position change. The patient is uncertain whether he has been experiencing any lower extremity pain radiation. On occasion, he can have pain in the right thigh. Sensory symptoms include chronic numbness in the plantar aspect of the feet. There has been no recent change in the sensory symptoms. He denies focal lowerextremity weakness. He is scheduled for rheumatological follow-up on 04/16/2021. Clinical materials reviewed: 1. Clinical office note of Imer Monet MD, 04/02/2021. The patient was unable to tolerate needle placement for completion of lumbar diagnostic medial branch blocks. He was offered medication for anxiolysis, but refused. The procedure was aborted. Past Medical History: Diagnosis Date ??? Antiplatelet [...] Irregular heart beat Afib. Takes Eliquis ??? 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 HYDROcodone-acetaminophen ([place]) 10-325 mg Tablet TAKE 2 TABLETS BY [...] Review of Systems: As above. Objective: BP 117/63 Pulse 50 Ht 180.3 cm (5' 11) Wt 108.9 kg (240 lb) BMI 33.47 kg/m?? Patient is seated comfortably and in no apparent distress. Alert and oriented x3. Affect is appropriate. Assessment: Encounter Diagnoses Name Primary? Low back pain, non-specific ??? Lumbar spondylosis ??? Sacroiliac dysfunction ??? Arthralgia of multiple joints The patient was unable to tolerate the diagnostic lumbar medial branch blocks for assessment of facet-mediated pain. His fear of needles would seem to exclude any other interventional treatment. He continues to report polyarthralgias and states that pain is equally bad in his shoulders and low back. I encouraged the patient to follow through with the upcoming rheumatological visit. He will be meeting with CARMELINA Lyon to discuss whether there are other treatment options to address his polyarthralgias. I explained to the patient that, if he experiences no further relief with rheumatological treatmentor if there are no other treatment options available to him, consideration can be given to referralfor chronic pain rehabilitation through the [facility]. Plan: Follow-up here as needed. Total time spent on date of encounter = 16 minutes. Chace Murphy MD, MS 04/08/2021 documented in this encounter Plan of Treatment Not on file documented as of this encounter Visit Diagnoses Diagnosis Low back pain, non-specific Lumbar spondylosis Lumbosacral spondylosis without myelopathy Sacroiliac dysfunction Disorders of sacrum Arthralgia of multiple joints Pain in joint, multiple sites documented in this encounter Care Teams Container Crane Operator Relationship Specialty Start Date End Date Alek Esparza MD [address] [place] [phone] PCP - General 09/03/10 04/05/23 documented as of this encounter
--- OUTSIDE RECORDS SUMMARY | 2024-08-29 14:13 | XMS_ITS | Encounter Summary ---
Author Organization [facility] [place] [address] Care Team Providers Care Crossbar Switch Adjuster Name Role Phone Alek Esparza MD Primary Care Provider [phone] Encounter Details Date Type Department Care Team ([facility] st Contact Info) Description 12/19/2020 [place] [phone] Avery Perry RN Social History Tobacco Use Types Packs/Day [...] Telephone Encounter - Avery Perry RN - 12/19/2020 3:08 PM EST Patient calls clinic with an update on status. On Prednisone taper, has completed last dose yesterday. Better mobility. Gets going better in the morning. Less joint pain than has had in the last year ortwo. 50% better. Has appointment in January. documented in this encounter Plan of Treatment Not on file documented as of this encounter Visit Diagnoses Not on filedocumented in this encounter Care Teams Crossbar Switch Adjuster Relationship Specialty Start Date End Date Alek Esparza MD [address] [place] [phone] PCP - General 09/03/10 04/05/23 documented as of this encounter
--- OUTSIDE RECORDS SUMMARY | 2024-08-29 14:13 | XMS_ITS | Encounter Summary ---
Author Organization [facility] [place] [address] Care Team Providers Care Contact Center Rep Name Role Phone Alek Esparza MD Primary Care Provider [phone] Encounter Details Date Type Department Care Team ([facility] st Contact Info) Description 09/12/2021 [place] [phone] Ashanti Mccarthy Social History Tobacco Use Types [...] on filedocumented in this encounter Care Teams Contact Center Rep Relationship Specialty Start Date End Date Alek Esparza MD [address] [place] [phone] PCP - General 09/03/10 04/05/23 documented as of this encounter
--- OUTSIDE RECORDS SUMMARY | 2024-08-29 14:14 | XMS_ITS | Encounter Summary ---
Author Organization [facility] [place] [facility] [address] Care Team Providers Care Interior Block Wirer Name Role Phone Alek Esparza MD Primary Care Provider [phone] Reason for Visit * Auth/Cert Specialty Diagnoses / Procedures Referred By Debra t Referred To Contact Diagnoses Left Hip DJD Procedures PRO TOTAL HIP ARTHROPLASTY TOTAL HIP ARTHROPLASTY, ANTERIOR APPROACH (WRVU 20.72) Referral ID Status Reason Start Date Expiration Date Visits Re quested Visits Authorized [id number] 1 1 Encounter Details Date Type Department Care Team (Late st Contact Info) Description 04/12/2020 1:26 PM EDT - 04/12/2020 3:54 PM EDT [place] [address] Isidoro Lay MD [facility] [place] [address] TOTAL HIP ARTHROPLASTY, ANTERIOR APPROACH (WRVU 19.6) Social History Tobacco Use Types Packs/Day Years [...] Sign Reading Time Taken Comments Blood Pressure 117/75 04/12/2020 1:44 PM EDT Pulse 79 04/12/2020 1:44 PM EDT Temperature 36.7 ??C (98.1 ??F) 04/12/2020 1:44 PM ED T Respiratory Rate - - Oxygen Saturation 98% 04/12/2020 1:44 PM EDT Inhaled Oxygen Concentration - - Weight 111.6 kg (246 lb) 04/12/2020 1:44 PM EDT Height - - Body Mass Index 34.33 04/13/2020 1:06 AM EDT documented in this encounter Discharge Summaries * Larry Owen MD - 04/13/2020 1:07 PM EDT Images from the original note were not included. Discharge Summary Patient Name: Enoc Esteban Patient Age: 60 y.o. Language: Japanese Race: White Ethnicity: Not nor Admit date: 04/12/2020 Discharge date and time: 04/13/2020 Attending Physician: Isidoro Lay MD Discharge Physician: Isidoro Lay MD Follow-up Recommendations for Providers: See discharge instructions for additional details. Future Appointments Date Time Provider Department Center 05/09/2020 1:30 PM [facility] DX ROOM 3 MH Xray [facility] Rad 05/09/2020 2:30 PM Isidoro Lay MD [facility] ORTH 3C [facility] Inpatient Provider Contact Information: Isidoro Lay MD Orthopedics: [phone] After hours and weekends, call [facility] Motion Picture Projectionist, , and have the Orthopedic resident paged. [...] BP: (110-152)/(65-94) Respiratory Rate Resp: 16 Resp: [11-22] SpO2 SpO2: 97 % SpO2: [93 %-100 [...] L SLIM Assess for position of L LSIM TECHNIQUE: 1 views of the pelvis COMPARISON: [...] ??C (98.1 ??F)] Heart Rate: [71-95] Resp: [-] BP: (110-152)/(65-94) SpO2: [93 %-100 %] Heart [...] HYDROcodone-acetaminophen 10-325 mg Tab Commonly known as: Hildebran ibuprofen 800 mg Tab Commonly known as: [...] bowel movement. You can also take an fwzz-tre-gzasiya medication, Miralax if needed to combat constipation. [...] as much as possible. Call your doctor ([phone]) if you develop: 1. Fever greater than 100.5 2. Severe nausea or vomiting 3. Increasing pain that is not controlled by pain medications 4. Increasing redness, swelling, or drainage from incisions 5. Change in sensation FOLLOW-UP APPOINTMENTS: 1. You will have follow-up appointments at [facility] as indicated below in Future Appointment and Orders. 2. You will need to have x-rays prior to your follow-up appointment. Please come to Radiology, desT, 1 hour BEFORE that appointment for these x-rays. Future Appointments Date Time Provider Department Center 05/09/2020 1:30 PM [facility] DX ROOM 3 MH Xray [facility] Rad 05/09/2020 2:30 PM Isidoro Lay MD [facility] ORTH 3C [facility] If you have questions or concerns: Thursday [...] longer draining. The number for questions is [phone] before 5 PM weekdays and [phone] after 5 PM and weekends. Activity level: As tolerated Reese Catheter: Your catheter will stay in until early next week - about 5 days total. You will likely have some blood in your urine. However, if you are passing large amounts of blood clots, bright red blood or your catheter stops draining urinate please call our office at [phone] before 5PM or [phone] after hours. Keep the catheter in place [...] for catheter removal next week In the [facility] urology clinic (5B). Please call [phone] (clinic number for appointments) to confirm date and time of your appointment if you do not receive it on Thursday. Future Appointments and Orders Future Appointments and Orders Future Appointments Provider Department Dept Phone 05/09/2020 1:30 PM [facility] DX ROOM 3 XRay at [facility] Arrive at: Residential Supervisor Area 3T [phone] Please go to [facility]visor [facility]T ([place] Location). 05/09/2020 2:30 PM Isidoro Lay MD Orthopaedics at [facility] Arrive at: Residential Supervisor Area 3C [phone] Future Orders Complete By Expires Walker rolling [EQ134 Custom] As directed Process Instructions: Scheduling Instructions: Comments: Enoc Esteban [address] [place] [address] [phone] (home) Telephone Information: Diagnosis: Status post left total hip replacement with unsteady gait Patient's: Hgt: 180.3cm Wgt: 111.6 VENDOR: Ortho Care Located @ [facility] Center [place], [place] Ordering: Front wheel walker Deliver to 's hospital room #: 311B Questions: Vendor Name/Contact information: [facility] Primary Care Provider: Alek Esparza MD [phone] Discharge References/Attachments None documented in this encounter Discharge Instructions * Discharge Instructions* Francis Campos - 04/13/2020 12:53 PM EDT Call your doctor for: ??? fevers greater than 100.5 ??? severe nausea or vomiting ??? increasing pain not controlled by pain medications ??? decreased urine output or if your catheter is no longer draining. The number for questions is [phone] before 5 PM weekdays and [phone] after 5 PM and weekends. Activity level: As tolerated Reese Catheter: Your catheter will stay in until early next week - about 5 days total. You will likely have some blood in your urine. However, if you are passing large amounts of blood clots, bright red blood or your catheter stops draining urinate please call our office at [phone] before 5PM or [phone] after hours. Keep the catheter in place [...] for catheter removal next week In the [facility] urology clinic (5B). Please call [phone] (clinic number for appointments) to confirm date [...] bowel movement. You can also take an ambd-nit-hqjqdzu medication, Miralax if needed to combat constipation. [...] as much as possible. Call your doctor ([phone]) if you develop: 1. Fever greater than 100.5 2. Severe nausea or vomiting 3. Increasing pain that is not controlled by pain medications 4. Increasing redness, swelling, or drainage from incisions 5. Change in sensation FOLLOW-UP APPOINTMENTS: 1. You will have follow-up appointments at [facility] as indicated below in Future Appointment and Orders. 2. You will need to have x-rays prior to your follow-up appointment. Please come to Radiology, [facility], 1 hour BEFORE that appointment for these x-rays. Future Appointments Date Time Provider Department Center 05/09/2020 1:30 PM [facility] DX ROOM 3 Xray [facility] Rad 05/09/2020 2:30 PM Isidoro Lay MD [facility] ORTH [address] [place] [address] If you have questions or concerns: Thursday [...] Time Provider Department Center 05/09/2020 1:30 PM [facility] DX ROOM 3 MH Xray [facility] Rad 05/09/2020 2:30 PM Isidoro Lay MD [facility] ORTH 3C [facility] * Genesis Keyes - 04/12/2020 7:30 PM EDT 1929 Report received from CLAY PIGEON SETTER. Reese to be placed prior to transpo [...] Time Provider Department Center 05/09/2020 1:30 PM [facility] DX ROOM 3 MH Xray [facility] Rad 05/09/2020 2:30 PM Isidoro Lay MD [facility] ORTH 3C [facility] * Beth Zarate RN - 04/12/2020 4:59 [...] in this encounter Nursing Notes * Smita Tanner RN - 04/12/2020 4:49 PM EDT Pt arrived to PACU. Awakens to voice, drowsy. C/o tingling to R toes, discussed with PRODUCTION PLANNING SUPERVISOR, aware and is related to boot from surgery, sensation improving now boot off. Afib, baseline. 17:53 Pt unable to void. RN unable to cath pt, 2nd RN attempted without success. Team paged for possible urology consult, ortho will discuss with team. 18:20 Urology darkside research program intern paged 18:36 no call back, ortho research program intern paged 18:45 no call back, urology 1st call paged, call back. Yardage Caller was in same room, spoke with dark side research program intern re: difficult cath and need urology to [...] Irregular heart beat Afib. Takes Eliquis ??? group home current use of opiate analgesic Dilaudid for back pain ??? Moderate asthma ??? Pain in right elbow 06/13/2014 ??? Syncope Gets light-headed occasionally. No falls, just needs to sit down until resolved. Past Surgical History: Procedure Laterality Date ??? PRO CLOSED TREAT TOE FX 02/08/2013 CLOSED TREATMENT FX PHALANX OR PHALANGES performed by Rohan Duarte MD at [facility] OSC ??? PRO LAMINOTOMY, LUMBAR DISK, 1 INTRSP N/A 10/25/2019 LAMINOTOMY, DECOMPRESSION, FORAMINOTOMY, LUMBAR (WRVU 13.18) performed by Denzel Madison MD at [facility] OR ??? PRO MICROSURG TECHNIQUES, REQ OPER MICROSCOPE N/A 10/25/2019 MICROSCOPE USE (WRVU 3.46) performed by Denzel Madison MD at [facility] OR ??? PRO REMOVAL OF ELBOW BURSA Right 10/16/2014 EXCISION OF OLECRANON BURSA performed by Anupama Howard MD at [facility] OSC ??? PRO TOTAL HIP ARTHROPLASTY Left 04/12/2020 TOTAL HIP ARTHROPLASTY, ANTERIOR APPROACH (WRVU 20.72) performed by Isidoro Lay MD at [facility] MAIN OR Social History: Home set-up: Lives [...] and measurable assessment of functional outcome. Pager: [phone] TRESA ROBERTSON OT 04/13/2020 Occupational Therapy Rehabilitation [...] care provider on file: Alek Esparza MD [phone] Advance Directive on file and Code Status: <no information>, Full Code Patient???s Functional Status: has cleared rehab for discharge home. Living Situation: [address] [facility] [address] Supports: Friend Naga Assessment: Patient cleared for home with FWW and will be discharging with reese catheter placed byurology. Met with patient and Naga. The patient has been provided a verbal list ofDME vendors. He would like walker provided by vendor on site at [facility]. Patient requests referral to: Ortho Care Located @ [facility] Center [facility] Expected date of discharge: 04.13.2020 Mandie teaching per nursing and management of cath per MD orders. Referral routed to the Qa Developer for matching with agency/vendor and to provide any required information. No housing, transportation, insurance, resources concerns identified at this time. Supports in place to achieve a safe post-hospital transition. No identified barriers to accessing necessary care and/or follow-up after discharge. Plan: Patient to d/c to home via car when medically ready. blood coordinator/Laser Beam Machine Operator will continue to follow patient???s progress and remain available if situation changes for coordination of care, psychosocial support and/or discharge planning. IRINA MEANS RN Pager [phone] Extension [phone] * Plan of Care - Yolanda Manuel, [...] Irregular heart beat Afib. Takes Eliquis ??? 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 Moderate asthma ??? Pain in right elbow 06/13/2014 ??? Syncope Gets light-headed occasionally. No falls, just needs to sit down until resolved. Past Surgical History: Procedure Laterality Date ??? PRO CLOSED TREAT TOE FX 02/08/2013 CLOSED TREATMENT FX PHALANX OR PHALANGES performed by Rohan Duarte MD at [facility] OSC ??? PRO LAMINOTOMY, LUMBAR DISK, 1 INTRSP N/A 10/25/2019 LAMINOTOMY, DECOMPRESSION, FORAMINOTOMY, LUMBAR (WRVU 13.18) [facility] ??? PRO MICROSURG TECHNIQUES, REQ OPER MICROSCOPE N/A 10/25/2019 MICROSCOPE USE (WRVU 3.46) performed by Denzel Madison MD at [facility] MAIN OR ??? PRO REMOVAL OF ELBOW BURSA Right 10/16/2014 EXCISION OF OLECRANON BURSA performed by Anupama Howard MD at [facility] OSC Active Non-Hospital Problems Diagnosis ??? Obesity [...] in this evaluation. Time IN / OUT: 8807-4323 Total Evaluation Minutes, Physical Therapy: 17(eval, gt) Yolanda Manuel, PT Pager: [phone] Physical Therapy Inpatient Rehabilitation Department * Plan of Care - WaliGenesis - 04/13/2020 3:00 AM EDT Problem: Patient Care Overview Goal: Plan of Care Review Outcome: Ongoing (Interventions Implemented as Appropriate) 04/12/20212904/13/20249 Plan of Care Review Progress -- progress [...] Mutuality Outcome: Ongoing (Interventions Implemented as Appropriate) 04/13/20249 Individualization Patient Specific Preferences none Goal: Fall [...] Control Outcome: Ongoing (Interventions Implemented as Appropriate) 04/12/20 2130 Safety Interventions Isolation Precautions standard precautions maintained Infection Prevention environmental surveillance performed Coping Strategies Supportive Measures active listening utilized Goal: Discharge Needs Assessment Outcome: Ongoing (Interventions Implemented as Appropriate) 04/13/20 025 Discharge Needs Assessment Discharge Disposition still a patient Goal: Interdisciplinary Rounds/Family Conf Outcome: Ongoing (Interventions Implemented as Appropriate) 04/13/20 025 Interdisciplinary Rounds/Family Conf Participants patient;nursing Problem: Hip [...] UROLOGY INPATIENT CONSULT NOTE CONSULT REQUESTED BY Isidoro Lay MD HPI Enoc Esteban is a [...] Irregular heart beat Afib. Takes Eliquis ??? 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 Moderate asthma ??? Pain in right elbow 06/13/2014 ??? Syncope Gets light-headed occasionally. No falls, just needs to sit down until resolved. Past Surgical History: Procedure Laterality Date ??? PRO CLOSED TREAT TOE FX 02/08/2013 CLOSED TREATMENT FX PHALANX OR PHALANGES performed by Rohan Duarte MD at [facility] OSC ??? PRO LAMINOTOMY, LUMBAR DISK, 1 INTRSP N/A 10/25/2019 LAMINOTOMY, DECOMPRESSION, FORAMINOTOMY, LUMBAR (WRVU 13.18) [facility] ??? PRO MICROSURG TECHNIQUES, REQ OPER MICROSCOPE N/A 10/25/2019 MICROSCOPE USE (WRVU 3.46) performed by Denzel Madison MD at [facility] MAIN OR ??? PRO REMOVAL OF ELBOW BURSA Right 10/16/2014 EXCISION OF OLECRANON BURSA performed by Anupama Howard MD at [facility] OSC No current facility-administered medications on file [...] medications were obtained from the following source(s): [facility] Social History Socioeconomic History ??? Marital status: [...] file Gets together: Not on file Attends restorationist service: Not on file Active member of [...] Lay MD - 04/12/2020 4:09 PM EDT [facility] Operative Note Patient Name: Enoc Esteban : [id number] MR#: [id number] Case Date: 04/12/2020 Surgeon: Surgeon(s) and Role: [...] component positioning, verify leg length, and offset orthodox. Satisfied, the hip was dislocated using traction [...] off the HANA table back to the virtua voorhees. Attestation: Case Date: 04/12/2020 I was present [...] Implant Name Type Inv. Item Serial No. Respiratory Therapy Aide Lot No. LRB No. Used Action LINER,MPACT,FLAT,HIGHCROSS,36, ([id number]) (AUTOREQ) - [id number] IMPLANTS LINER,MPACT,FLAT,HIGHCROSS,36, ([id number]) (AutoReq) [employer] - MEDACTA [place] [id number] Left 1 Implanted CUP,MPACT,RIM,2HOLE,62MM ([id number]) (AUTOREQ) - [id number] IMPLANTS CUP,MPACT,RIM,2HOLE,62MM ([id number]) (AutoReq) [employer] [place] - MEDACTA [place] [id number] Left 1 Implanted HEAD,BIOLOX,DELTA,LARGE,36MM ([id number]) (AUTOREQ) - [id number] IMPLANTS HEAD,BIOLOX,DELTA,LARGE,36MM([id number]) (AutoReq) [employer] [place] - MEDACTA [place] [id number] Left 1 Implanted * Brief Op Note - Isidoro Lay MD - 04/12/2020 4:08 PM EDT Brief Operative Note Patient Name: Enoc Esteban : [id number] MR#: [id number] Case Date: 04/12/2020 Surgeon: Surgeon(s) and Role: [...] Hip DJD Arthroplasty Acetabular/Prox Fem Prostc Agrft/Algrft ([id number]) 04/12/2020 2:19 PM EDT Left Hip DJD documented in this encounter Results * (ABNORMAL) Differential, Automated (04/13/2020 3:39 AM EDT) Neutrophil % 88.4 % [facility] Neutrophil Absolute 14.03(H) 1.70 - 6.10 x10(3)/mc L [facility] Lymph % 7.2 % [facility] Lymphocytes Abs 1.2 0.9 - 3.2 x10(3)/mc L [facility] Monocyte % 4.0 % [facility] Monocyte Abs 0.6 0.3 - 0.9 x10(3)/mc L [facility] Eos % 0.0 % [facility] Eosinophils Abs 0.0 0.0 - 0.4 x10(3)/mc L [facility] Basophil % 0.1 % [facility] Baso Absolute 0.0 0.0 - 0.1 x10(3)/mc L [facility] Immature Gran % 0.30 % [facility] Comment: Immature granulocytes(IG's)percentage and absolute count will include metamyelocytes, myelocytes, and promyelocytes. Blood smears from CBCs yielding IG's will be scanned manually for concordance. If this scan disagrees with the automated IG or if promyelocytes are noted, a manual differential will be performed. Immature Gran Absolute 0.05(H) 0.00 - 0.04 x10(3)/ L [facility] Blood specimen (specimen) 04/13/2020 3:39 AM EDT 04/13/2020 3:57 AM EDT Narrative Resulting Agency Comment Spec In Lab Timothy Oviedo MD HEMATOLOGY ORDERABLE S [facility] [place] [address] * (ABNORMAL) Hemogram (04/13/2020 3:39 AM EDT) White Blood Cell 15.9(H) 4.0 - 9.5 x10(3)/[facility] Red Blood Cell 3.81(L) 4.58 - 5.54 x10(6)/[facility] Hemoglobin 13.1(L) 13.7 - 16.5 gm/dL [facility] Hematocrit 38.8(L) 40.5 - 48.5 % [facility] Mean Cell Volume 101.8(H) 82.9 - 93.1 [facility] Mean Cell Hemoglobin 34.4(H) 27.5 - 32.1 pg [facility] Mean Cell Hemoglobin Concentration 33.8 32.0 - 35.7 gm/dL [facility] Platelet 218 145 - 357 x10(3)/ L [facility] RDW Standard Deviation 45.5(H) 36.0 - 45.0 [facility] RDW coefficient of variation 12.1 11.4 - 13.8 % [facility] Mean Platelet Volume 10.1 7.6 - 12.9 [facility] NRBC% auto 0.0 % [facility] NRBC Absolute 0.000 0.000 - 0.000 x10(3)/ L [facility] Blood specimen (specimen) 04/13/2020 3:39 AM EDT 04/13/2020 3:57 AM EDT Narrative Resulting Agency Comment Spec In Lab Timothy Oviedo MD HEMATOLOGY ORDERABLE S [facility] [place] [address] * (ABNORMAL) Basic Metabolic Panel (non-fasting) (04/13/2020 3:39 AM EDT) Glucose 182 65 - 199 mg/dL [facility] Comment:Diabetes: >=200 mg/d L plus symptoms Blood Urea Nitrogen 11 10 - 20 mg/dL [facility] Creatinine 1.09 0.80 - 1.50 mg/dL [facility] Sodium 133(L) 135 - 145 mmol/L [facility] Potassium 5.2(H) 3.5 - 5.0 mmol/L [facility] Comment: Please note: ??Patients with WBC >100,000 may have falsely elevated Potassium levels. ??For accurate Potassium quantification in these patients send serum separator tube (gold top) for subsequent determinations. ??Contact the Clinical Chemistry Laboratory if there are any questions. Chloride 99 98 - 107 mmol/L [facility] Carbon Dioxide 25 22 - 31 mmol/L [facility] Anion Gap 9 5 - 15 mmol/L [facility] Calcium 9.0 8.5 - 10.5 mg/dL [facility] Est Glomerular Filtration Rate 74 >=60 mL/min/1. 73 m?? [facility] Comment: The eGFR was calculated using the CKD-EPI equation. As with all creatinine based estimates of kidney function, eGFR values calculated with the CKD-EPI equation are not accurate in patients with acute kidney failure, extremes of body mass or the acutely ill. http://[email or web address] eGFR 86 >=60 mL/min/1. 73 m?? [facility] Comment: The eGFR was calculated using the CKD-EPI equation. As with all creatinine based estimates of kidney function, eGFR values calculated with the CKD-EPI equation are not accurate in patients with acute kidney failure, extremes of body mass or the acutely ill. http://[email or web address] Blood specimen (specimen) 04/13/2020 3:39 AM EDT 04/13/2020 3:57 AM EDT Narrative Resulting Agency Comment Spec In Lab Isidoro Lay MD CHEMISTRY ORDERABLES [facility] [place] [address] * XR Pelvis (Generic) (04/12/2020 5:20 PM [...] report, please contact the number below. ? Procedure Note Melina Thorne MD - 04/12/2020 [...] this report, please contact the number below. Isidoro Lay MD IMG DX ORDERABLES * Specimen to Pathology (04/12/2020 4:10 PM EDT) AP Specimen 04/12/2020 4:10 PM EDT 04/12/2020 4:10 PM EDT Narrative [facility] - 04/12/2020 4:10 PM EDT Specimen requisition ordered. ??Separate Pathology report to follow Isidoro Lay MD PATHOLOGY/CYTOLOGY O RDERABLES Performing Organization Address [facility] de Phone Number [facility] [place] [address] * XR Fluoro No Rad <1Hr - OR Use (04/12/2020 4:08 PM EDT) Narrative RAD - 04/12/2020 4:09 PM EDT This exam is auto-finalizing. No interpretation was done. Isidoro Lay MD IMG FLUORO ORDERABLE S Performing Organization Address [facility] Co de Phone Number [place], [place] * Surgical Pathology Report (04/12/2020 3:37 PM EDT) Final Diagnosis [id number] ? Location: 3WST; 0311; B The signing pathologist has (i) examined the relevant preparation(s) for the specimen(s) and (ii) rendered or confirmed the diagnosis(es). . ?Surgical Pathology DIAGNOSIS Bone, left hip, total hip arthroplasty: - Degenerative joint disease with underlying osteonecrosis Electronically signed by: ??Ace Milan MD Verified: ??04/19/2020 ?Dermatopatholog ist, Bone & Soft Tissue Pathologist Performed at: ??-[facility] Dept. of Pathology, [place], [place] SPECIMEN(S) SUBMITTED A - Left Femoral [...] Blocks submitted for decalcification: A1 and A2. Research Recruiter sections in 2 cassettes labeled A1-A2. ??RT/viet 04/19/2020 2:57 PM EDT [facility] BONE STRUCTURE / Unknown 04/12/2020 3:37 PM EDT 04/12/2020 3:37 PM EDT Isidoro Lay MD PATHOLOGY/CYTOLOGY O CASSIE [facility] [place] [address] documented in this encounter Visit Diagnoses Not on filedocumented in this encounter Admitting Diagnoses Diagnosis Status [...] Given 04/12/2020 11:00 PM EDT 2.5 mg BUpivacaine-EPINEPHrine 0.25 %-1:200,000 injection ONCE PRN, Starting on Leana 04/12/20 at 1504, Until Thu04/13/20 at 1619, Intra-Operative (Intra-Procedure), Routine Given 04/12/2020 3:04 PM EDT 50 mLs 19- Surgical Site ceFAZolin (Ancef) 2g in dextrose 5% 100 [...] Given 04/12/2020 1:52 PM EDT 400 mg cloNIDine injection ONCE PRN, Starting on Thu04/12/20 at 1505, Until Thu04/13/20 at 1619, Intra-Operative (Intra-Procedure), Routine Given 04/12/2020 3:05 PM EDT 50 mcg 19- Surgical Site dexamethasone (Decadron) tablet 4 mg 4 mg, [...] Given 04/12/2020 5:06 PM EDT 0.2 mg ketorolac (TORADOL) injection ONCE PRN, Starting on Thu04/12/20 at 1505, Until Thu04/13/20 at 1619, Intra-Operative (Intra-Procedure), Routine Given 04/12/2020 3:05 PM EDT 30 mg 19- Surgical Site lactated ringers infusion 1,000 mL, at 100 mL/hr, Intravenous, CONTINUOUS, Starting on Thu04/12/20 at 1400, Until Thu04/12/20 at 2020, Day of Surgery (Day of Procedure) New Bag 04/12/2020 2:02 PM EDT 1,000 mLs 100 mL/hr lactated ringers infusion 1,000 mL, at 100 mL/hr, Intravenous, CONTINUOUS, Starting on Thu04/12/20 at 1730, Until Thu04/13/20 at 1619, Recovery (Recovery-Hospital Unit) New Bag 04/12/2020 6:00 PM EDT 1,000 mLs 100 mL/hr lidocaine ((GLYDO)) 2 % gel 1 dose, Starting on Thu04/12/20 at 1921, Until Thu04/12/20 at 1930, Smita Tanner: cabinet override Given [...] Oral, EVERY 4 HOURS PRN, Starting on Thu04/12/20 at 1710, Until Thu04/13/20 at 1619, Pain, [...] 1,000 mg, Oral, ONCE, 1 dose, On Thu04/12/20 at 1400, Administer on arrival in Same Day Program, Day of Surgery (Day of Procedure), Routine 1352 (Given - Provider: Araseli Son, SKY) acetaminophen (Tylenol) tablet 1,000 mg 1,000 mg, Oral, EVERY 8 HOURS SCHEDULED, First dose on Leana 04/12/20 at 1730, Until Discontinued, Maximum dose of acetaminophen is 4000 mg from all sources in 24 hours., Routine 1730 (Not Given - Provider: Beth Zarate RN - Reason: See comment - Comment: given preop at 1400)231 (Given - Provider: Genesis Keyes) 0601 (Given - Provider: Genesis Keyes)1400 (Due) apixaban (Eliquis) tablet 2.5 mg 2.5 mg, Oral, 2 TIMES DAILY, 5 doses, First dose on Leana 04/12/20 at 2300, Last dose on Thu04/14/20 at 2100, Anticoagulant, Routine, Restricted anticoagulant, choose the most appropriate response: Approved indication of hip/knee replacement DVT prophylaxis 2299 (Given - Provider: Genesis Keyes) 0813 (Given - Provider: Flaca Perez RN) apixaban [...] Prophylaxis 2325 (Given - Provider: Genesis Keyes) 0601 (Given - Provider: Genesis Keyes) ceFAZolin (ANCEF) 3g in dextrose 5% 100 mL (COMPLETED) 3 g, Intravenous, EVERY 3 HOURS, 1 dose, First dose on Leana 04/12/20 at 1400, Administer over 30 Minutes, Redose after 3 hours., Intra-Operative (Intra-Procedure), Indication for (Active or Suspected): Prophylaxis 1429 (Given - Provider: Daria Mae CRNA) celecoxib (CeleBREX) capsule 200 mg 200 mg, Oral, 2 TIMES DAILY, First dose on Leana 04/12/20 at 2300, Until Discontinued, Routine 2313 (Given - Provider: Genesis Keyes) 0813 (Given - Provider: Flaca Peerz RN) celecoxib (CeleBREX) capsule 400 mg (COMPLETED) 400 mg, Oral, ONCE, 1 dose, On Leana 04/12/20 at 1400, Administer on arrival to Same Day Program, Day of Surgery (Day of Procedure), Routine 135 (Given - Provider: Araseli Son RN) dexamethasone (Decadron) tablet 4 mg 4 mg, Oral, DAILY, 2 doses, First dose on Thu04/13/20 at 0900, Last dose on Thu04/14/20 at 0900, Routine 08 (Given - Provid er: Flaca Perez RN) febuxostat (Uloric) tablet 40 mg 40 mg, Oral, DAILY, First dose on Thu04/13/20 at 0900, Until Discontinued, Routine 08 (Given - Provid er: Flaca Perez RN) gabapentin (Neurontin) capsule 300 mg (COMPLETED) 300 mg, Oral, ONCE, 1 dose, On Leana 04/12/20 at 1400, Administer on arrival in Same Day Program, Day of Surgery (Day of Procedure), Routine 1352 (Given - Provider: Araseli Son RN) gabapentin (Neurontin) capsule 300 mg(Linked Group 1) [...] Routine, COVID-19 Related Druge Shortage: Currently the [facility] is experiencing a critical shortage of [...] Until Discontinued, Hold if SBP <120, Routine 09 (Not Given - Provider: Flaca Perez RN [...] Oral, 2 TIMES DAILY, First dose on Thu20 at 2300, Until Discontinued, Routine 2300 (Not Given - Provider: Genesis Keyes - Reason: Patient/family refused) 0813 (Given - Provider: Flaca Perez, SKY) sodium chloride 0.9 % (flush) flush 5 mL 5 mL, Intravenous, 2 TIMES DAILY, First dose on Leana 04/12/20 at 2300, Until Discontinued, Recovery (Recovery-Hospital Unit), [...] Procedure) 1402 (New Bag - Provider: Araseli Son, SKY) lactated ringers infusion 1,000 mL, at 100 mL/hr, Intravenous, CONTINUOUS, Starting on Leana 04/12/20 at 1730, Until Thu04/13/20 at 1619, Recovery (Recovery-Hospital Unit) 1800 (New Bag - Provider: Jordan Tanner, SKY) PRN Medication Order 04/11/2020 04/12/2020 04/13/2020 bisacodyL [...] Oral, 3 TIMES DAILY PRN, Starting on Leana 04/12/20 at 2211, Until Thu04/13/20 at 1619, Muscle spasms, Routine HYDROmorphone (DILAUDID) injection 0.4-0.6 mg (CANCELED) 0.4-0.6 mg, Intravenous, EVERY 5 MIN PRN, Starting on Leana 04/12/20 at 1649, Until Leana 04/12/20 at 202, Pain, Give 0.4 mg every [...] (TORADOL) injection (CANCELED) ONCE PRN, Starting on Leana [...] minutes ONCE if pain not relieved., Routine 182 (Given - Provider: Smita Tanner RN)193 (Given - Provider: Smita Tanner RN)2312 (Given - Provider: Genesis Keyes) 0702 (Given - Provider: Genesis Keyes - Comment: PT prep) sodium chloride 0.9 % (flush) flush 5-20 mL 5-20 mL, Intravenous, EVERY 1 MIN PRN, Starting on Leana 04/12/20 at 2212, Until Thu04/13/20 at 1619, flush, [...] Routine documented in this encounter Care Teams Interior Block Wirer Relationship Specialty Start Date End Date Alek Esparza MD [address] [place] [phone] PCP - General 09/03/10 04/05/23 documented as of this encounter
--- OUTSIDE RECORDS SUMMARY | 2024-08-29 14:14 | XMS_ITS | Encounter Summary ---
Author Organization [facility] Address [facility] [place] [address] Care Team Providers Care Moving Picture Operator Name Role Phone Alek Esparza MD Primary Care Provider [phone] Encounter Details Date Type Department Care Team (Late st Contact Info) Description 07/23/2017 Telephone [place] [phone] Fabienne Mills LPN Social History Tobacco Use Types Packs/Day Years Used Date Smoking Tobacco: Never Smokeless Tobacco: Never Alcohol Use Standard Drinks/Week Comments Yes 0 (1 standard drink = 0.6 oz pur e alcohol) 4 drinks daily Sex and Gender Information Value Date Recorded Sex Assigned at Not on file Gender Identity Not on file Sexual Orientation Not on file documented as of this encounter Miscellaneous Notes * Telephone Encounter - Fabienne Mills LPN - 07/23/2017 2:01 PM EDT ----- Message from Alvaro Cam MD sent at 07/20/2017 8:14 PM EDT ----- Rony Adames, Could you please let this pt know that his uric acid level is very good, I.e. 4.6, so he can stop uloric and start allopurinol, 300 mg on Thursday? Please ask him to drink a lot of fluid because his kidney function has dropped. Thanks Alvaro ++++++++++++++++++++++++++++++++++++ I have called with the above message. documented in this encounter Plan of Treatment Not on file documented as of this encounter Visit Diagnoses Not on filedocumented in this encounter Care Teams Moving Picture Operator Relationship Specialty Start Date End Date Alek Esparza MD [address] [place] [phone] PCP - General 09/03/10 04/05/23 documented as of this encounter
--- OUTSIDE RECORDS SUMMARY | 2024-08-29 14:14 | XMS_ITS | Encounter Summary ---
Author Organization [facility] Address [facility] [place] [address] Care Team Providers Care Retail Delivery Driver Name Role Phone Alek Esparza MD Primary Care Provider [phone] Encounter Details Date Type Department Care Team (Latest Contact Info) Description 03/23/2020 1:45 PM EDT [place] [phone] Primary osteoarthritis of left hip; Pain of left lower extremity Social History Tobacco Use Types Packs/Day Years Used Date Smoking Tobacco: Never Smokeless Tobacco: Never Alcohol Use Standard Drinks/Week Comments Yes 4 (1 standard drink = 0.6 oz pur e alcohol) 2-3 drinks daily Sex and Gender Information Value Date Recorded Sex Assigned at Not on file Gender Identity Not on file Sexual Orientation Not on file documented as of this encounter Plan of Treatment Not on file documented as of this encounter Procedures Procedure Name Priority Date/Time Associated Diagnosis Comments SCAN, PERIPHERAL BLOOD Routine 03/23/2020 2:29 PM EDT HEMOGRAM Routine 03/23/2020 2:29 PM EDT Primary osteoarthritis of left hip Pain of left lower extremity DIFFERENTIAL, AUTOMATED Routine 03/23/2020 2:29 PM EDT Primary osteoarthritis of left hip Pain of left lower extremity HC VENIPUNCTURE Routine 03/23/2020 2:29 PM EDT Primary osteoarthritis of left hip Pain of left lower extremity HC PROTHROMBIN TIME Routine 03/23/2020 2 :29 PM EDT Primary osteoarthritis of left hip Pain of left lower extremity HC CBC,PLT & AUTO DIFF Routine 03/23/2020 2:29 PM EDT Primary osteoarthritis of left hip Pain of left lower extremity BASIC METABOLIC PANEL Routine 03/23/2020 2:29 PM EDT Primary osteoarthritis of left hip Pain of left lower extremity documented in this encounter Results * Scan, Peripheral Blood (03/23/2020 2:29 PM EDT) Pathologist [facility] Plat estimate Normal [facility] RBC Morphology Abnormal [facility] Macrocyte 6-10 /HPF [facility] Blood specimen (specimen) 03/23/2020 2:29 PM EDT 03/23/2020 2:36 PM EDT Narrative Resulting Agency Comment Spec In Lab Isidoro Lay MD HEMATOLOGY ORDERABLE S Performing Organization Address City/State/[facility] Co de Phone Number [facility] [place] [address] * Differential, Automated (03/23/2020 2:29 PM EDT) Pathologist [facility] Neutrophil % 40.0 % [facility] Neutrophil Absolute 2.88 1.70 - 6.10 x10(3)/[facility] Lymph % 42.4 % [facility] Lymphocytes Abs 3.1 0.9 - 3.2 x10(3)/[facility] Monocyte % 11.2 % [facility] Monocyte Abs 0.8 0.3 - 0.9 x10(3)/[facility] Eos % 5.1 % [facility] Eosinophils Abs 0.4 0.0 - 0.4 x10(3)/[facility] Basophil % 1.2 % [facility] Baso Absolute 0.1 0.0 - 0.1 x10(3)/[facility] Immature Gran % 0.10 % [facility] Comment: Immature granulocytes(IG's)percentage and absolute count will include metamyelocytes, myelocytes, and promyelocytes. Blood smears from CBCs yielding IG's will be scanned manually for concordance. If this scan disagrees with the automated IG or if promyelocytes are noted, a manual differential will be performed. Immature Gran Absolute 0.01 0.00 - 0.04 x10(3)/mcL [facility] Blood specimen (specimen) 03/23/2020 2:29 PM EDT 03/23/2020 2:36 PM EDT Narrative Resulting Agency Comment Spec In Lab Isidoro Lay MD HEMATOLOGY ORDERABLE S [facility] [place] [address] * (ABNORMAL) Hemogram (03/23/2020 2:29 PM EDT) White Blood Cell 7.2 4.0 - 9.5 x10(3)/mc L [facility] Red Blood Cell 4.43(L) 4.58 - 5.54 x10(6)/mc L [facility] Hemoglobin 15.0 13.7 - 16.5 gm/dL [facility] Hematocrit 47.0 40.5 - 48.5 % [facility] Mean Cell Volume 106.1(H) 82.9 - 93.1 fL [facility] Mean Cell Hemoglobin 33.9(H) 27.5 - 32.1 pg [facility] Mean Cell Hemoglobin Concentration 31.9(L) 32.0 - 35.7 gm/dL [facility] Platelet 272 145 - 357 x10(3)/mc L [facility] RDW Standard Deviation 48.9(H) 36.0 - 45.0 [facility] RDW coefficient of variation 12.3 11.4 - 13.8 % [facility] Mean Platelet Volume 10.2 7.6 - 12.9 [facility] NRBC% auto 0.0 % [facility] NRBC Absolute 0.000 0.000 - 0.000 x10(3)/mc L [facility] Blood specimen (specimen) 03/23/2020 2:29 PM EDT 03/23/2020 2:36 PM EDT Narrative Resulting Agency Comment Spec In Lab Isidoro Lay MD HEMATOLOGY ORDERABLE S [facility] [place] [address] * (ABNORMAL) Basic Metabolic Panel (non-fasting) (03/23/2020 2:29 PM EDT) Glucose 123 65 - 199 mg/dL [facility] Comment:Diabetes: >=200 mg/d L plus symptoms Blood Urea Nitrogen 15 10 - 20 mg/dL [facility] Creatinine 1.37 0.80 - 1.50 mg/dL [facility] Sodium 138 135 - 145 mmol/L [facility] Potassium 4.6 3.5 - 5.0 mmol/L [facility] Comment: Please note: ??Patients with WBC >100,000 may have falsely elevated Potassium levels. ??For accurate Potassium quantification in these patients send serum separator tube (gold top) for subsequent determinations. ??Contact the Clinical Chemistry Laboratory if there are any questions. Chloride 102 98 - 107 mmol/L [facility] Carbon Dioxide 26 22 - 31 mmol/L [facility] Anion Gap 10 5 - 15 mmol/L [facility] Calcium 9.4 8.5 - 10.5 mg/dL [facility] Est Glomerular Filtration Rate 56(L) >=60 mL/min/1. 73 m?? [facility] Comment: The eGFR was calculated using the CKD-EPI equation. As with all creatinine based estimates of kidney function, eGFR values calculated with the CKD-EPI equation are not accurate in patients with acute kidney failure, extremes of body mass or the acutely ill. http://[employer]/[facility] eGFR 65 >=60 mL/min/1. 73 m?? [facility] Comment: The eGFR was calculated using the CKD-EPI equation. As with all creatinine based estimates of kidney function, eGFR values calculated with the CKD-EPI equation are not accurate in patients with acute kidney failure, extremes of body mass or the acutely ill. http://[employer]/[facility] Blood specimen (specimen) 03/23/2020 2:29 PM EDT 03/23/2020 2:36 PM EDT Narrative Resulting Agency Comment Spec In Lab Isidoro Lay MD CHEMISTRY ORDERABLES Performing Organization Address [facility] de Phone Number [facility] [place] [address] * Prothrombin Time (03/23/2020 2:29 PM EDT) Prothrombin Time 12.3 9.4 - 12.5 sec [facility] International Normalization Ratio 1.1 [facility] Comment: An INR <2.0 indicates adequate procoagulant activity for hemostasis in most patients without underlying bleeding disorders, though the INR may not adequately reflect hemostatic capacity in patients with liver disease and synthetic impairment. The recommended target INR range for therapeutic anticoagulation is 2.0 ? 3.0 for most applications, though lower and higher ranges may be appropriate depending on clinical circumstances. Blood specimen (specimen) 03/23/2020 2:29 PM EDT 03/23/2020 2:36 PM EDT Narrative Resulting Agency Comment Spec In Lab Isidoro Lay MD HEMATOLOGY ORDERABLE S Performing Organization Address [facility] Co de Phone Number [facility] [place] [address] * APTT (03/23/2020 2:29 PM EDT) Partial Thromboplastin Time 36 25 - 37 sec [facility] Comment: The PTT is NOT appropriate for heparin monitoring. Use the Anti-Xa level for heparin monitoring (HEP UFH) or LMWH monitoring (HEP LMW). A PTT less than 37 seconds generally indicates adequate hemostasis. Blood specimen (specimen) 03/23/2020 2:29 PM EDT 03/23/2020 2:36 PM EDT Narrative Resulting Agency Comment Spec In Lab Isidoro Lay MD HEMATOLOGY ORDERABLE S Performing Organization Address City/State/[facility] Co de Phone Number [facility] [place] [address] documented in this encounter Visit Diagnoses Diagnosis Primary osteoarthritis of left hip Primary localized osteoarthrosis, pelvic region and thigh Pain of left lower extremity documented in this encounter Care Teams Retail Delivery Driver Relationship Specialty Start Date End Date Alek Esparza MD [address] [place] [phone] PCP - General 09/03/10 04/05/23 documented as of this encounter
--- OUTSIDE RECORDS SUMMARY | 2024-08-29 14:14 | XMS_ITS | Encounter Summary ---
Author Organization [facility] [place] [address] Care Team Providers Care Human Resources Compensation Analyst Name Role Phone Alek Esparza MD Primary Care Provider [phone] Encounter Details Date Type Department Care Team (Late st Contact Info) Description 03/23/2020 1:45 PM EDT Clinical Support Same Day at [facility] [place] [phone] Social History Tobacco Use Types Packs/Day Years [...] Sign Reading Time Taken Comments Blood Pressure - - Pulse 103 03/23/2020 1:36 PM EDT Temperature - - Respiratory Rate - - Oxygen Saturation 97% 03/23/2020 1:36 PM EDT Inhaled Oxygen Concentration - - Weight 99.8 kg (220 lb) 03/23/2020 1:36 PM EDT Height 177.8 cm (5' 10) 03/23/2020 1:36 PM EDT Body Mass Index 31.57 03/23/2020 1:36 PM EDT documented in this encounter Progress Notes * Nilsa Silva RN - 03/23/2020 1:45 PM EDT PAT questionnaire reviewed with patient while in Pre Admission Testing. Pre- operative instruction booklet reviewed. Patient verbalizes a good understanding of all information reviewed. Pt given Hibiclens and Clearfast with instructions. PLAN: Testing: Labs Special medication instructions: Hibiclens and Clearfast Procedure date: 04/12 documented in this encounter Plan of Treatment Not on file documented as of this encounter Visit Diagnoses Not on filedocumented in this encounter Care Teams Human Resources Compensation Analyst Relationship Specialty Start Date End Date Alek Esparza MD [address] [place] [phone] PCP - General 09/03/10 04/05/23 documented as of this encounter
--- OUTSIDE RECORDS SUMMARY | 2024-08-29 14:14 | XMS_ITS | Encounter Summary ---
Author Organization [facility] Address [facility] [place] [address] Care Team Providers Care Technical Cable Jointer Name Role Phone Alek Esparza MD Primary Care Provider [phone] Encounter Details Date Type Department Care Team ([facility] Contact Info) Description 07/26/2018 Orders [place] [address] Teofilo Cotton MD [facility] [place] [place] [address] Social History Tobacco Use Types Packs/Day Years [...] on filedocumented in this encounter Care Teams Technical Cable Jointer Relationship Specialty Start Date End Date Alek Esparza MD [address] [place] [phone] PCP - General 09/03/10 04/05/23 documented as of this encounter
--- OUTSIDE RECORDS SUMMARY | 2024-08-29 14:14 | XMS_ITS | Encounter Summary ---
Author Organization [facility] [place] [address] Care Team Providers Care Director Investor Relations Name Role Phone Alek Esparza MD Primary Care Provider [phone] Encounter Details Date Type Department Care Team (Late st Contact Info) Description 11/24/2019 [place] [phone] Astrid Serna Social History Tobacco Use Types Packs/Day Years [...] encounter Miscellaneous Notes * Telephone Encounter - Salud Gonsalez - 12/14/2019 12:16 PM EST Enoc was referred to Orthopedics by Dr. Madison, pt. Has f/u with that office; closing this encounter. * Telephone Encounter - Astrid Serna - 11/24/2019 9:[address] Madison, Please call pt with Hip xray results. [phone] (H) [phone] (M Thank you, Astrid PLAN: Call pt with Xrays of hip results If persistent issues, consider MRI L spine If hip xray bad - referaral to ortho documented in this encounter Plan of Treatment Not on file documented as of this encounter Visit Diagnoses Not on filedocumented in this encounter Care Teams Director Investor Relations Relationship Specialty Start Date End Date Alek Esparza MD [address] [place] [phone] PCP - General 09/03/10 04/05/23 documented as of this encounter
--- OUTSIDE RECORDS SUMMARY | 2024-08-29 14:14 | XMS_ITS | Encounter Summary ---
Author Organization [facility] [address] Care Team Providers Care Mirror Polisher Name Role Phone Alek Esparza MD Primary Care Provider [phone] Reason for Referral * Consultation (Urgent) - Closed Specialty Diagnoses / Procedures Referred By Contac t Referred To Contact Orthopaedics Diagnoses Pain in left hip Denzel Madison MD [facility] [place] [address] [facility] [address] [place] [phone] Referral ID Status Reason Start Date Expiration Date V isits Requested Visits Authorized [id number] Closed Consult, Test & Treat 12/07/2019 12/06/2020 1 1 Reason for Visit * Reason Comments Follow-up [facility], s/p L4-5 hemila mi and microdiscectomy Encounter Details Date Type Department Care Team (Late st Contact Info) Description 11/23/2019 3:20 PM EST Office [place] [phone] Denzel Madison MD [facility] [place] [address] Pain in left hip Social History Tobacco Use Types Packs/Day Years [...] Sign Reading Time Taken Comments Blood Pressure 137/83 11/23/2019 3:15 PM EST Pulse 92 11/23/2019 3:15 PM EST Temperature - - Respiratory Rate - - Oxygen Saturation - - Inhaled Oxygen Concentration - - Weight 111.6 kg (246 lb) 11/23/2019 3:15 PM EST Height 180.3 cm (5' 11) 11/23/2019 3:15 PM EST Body Mass Index 34.31 11/23/2019 3:15 PM EST documented in this encounter Progress Notes * Denzel Madison MD - 11/23/2019 3:20 PM EST Neurosurgery Clinic Note Patient Enoc Esteban 1960 DATE OF VISIT: 11/23/2019 REASON FOR VISIT: Follow-up s/p lumbar spine surgery SUBJECTIVE: I saw Enoc Esteban at the neurosurgery clinic for a routine follow-up since his recent L4-5 microdiscectomy and foraminotomy. The procedure was uneventful and the patient was discharged home at his neurologic baseline. On today's visit, the patient reports interval resolution of his left leg shooting pain and spasms. He does report ongoing left hip pain that radiates into his groin and hip region. He continues on Gabapentin. There are no issues with wound drainage or fevers. OBJECTIVE: BP 137/83 (BP Location (NBP): Right arm, Patient Position: Sitting, BP Cuff Sizes: Large Adult (32-43 cm)) Pulse 92 Ht 180.3 cm (5' 11) Wt 111.6 kg (246 lb) BMI 34.31 kg/m?? No acute distress Awake, Alert, Interactive Pupils equal and reactive Extraocular movements intact No drift Moving all extremities with full strength Gait: Antalgic Incision in lumbar region: clean and dry; no erythema or drainagee CURRENT MEDICATIONS: HYDROcodone-acetaminophen, acetaminophen, apixaban, ergocalciferol, febuxostat, gabapentin, ibuprofen, ipratropium-albuteroL, losartan, metoprolol succinate XL, sildenafiL, and zolpidem ASSESSMENT: 59 y.o. male s/p left L4-5 microdiscectomy and foraminotomy. The patient has resolution of his radicular symptoms but some issues with hip pain that need further workup. I recommended hip X-rays for further workup. If X-rays of the hip are unremarkable, we will get MRI L-spine to assess for any additional issues. PLAN: 1) Hip x-rays today 2) If x-rays are negative, follow-up with NSGY after MRI L-spine completion 3) If x-rays show pathology, refer to Orthopedics I spent 15 minutes of this 15??minute encounter in face to face contact counseling the patient and addressing specific questions. At the conclusion of our discussion he indicated that he had no further questions. The patient understands to contact neurosurgery or seek emergent help with any acute wo rsening of neurologic symptoms. ?? ADDENDUM: Left pelvis and hip X-rays show moderate left hip arthropathy. There is also loss of femoral head neck offset bilaterally. Urgent referral to Orthopedic surgery placed for evaluation and management given patients ongoing active issues with hip pain. documented in this encounter Plan of Treatment Scheduled Referrals Name Type Priority Associated Diagnoses Order Schedule Referral to Orthopaedics Outpatient Referral Routine Pain in left hip Ordered: 12/07/2019 documented as of this encounter Visit Diagnoses Diagnosis Pain in left hip Pain in joint, pelvic region and thigh documented in this encounter Care Teams Mirror Polisher Relationship Specialty Start Date End Date Alek Epsarza MD [address] [place] [phone] PCP - General 09/03/10 04/05/23 documented as of this encounter
--- OUTSIDE RECORDS SUMMARY | 2024-08-29 14:14 | XMS_ITS | Encounter Summary ---
Author Organization [facility] Address [facility] [address] Care Team Providers Care Modeling Agency Manager Name Role Phone Alek Esparza MD Primary Care Provider [phone] Reason for Visit * Auth/Cert Specialty Diagnoses / Procedures Referred By Contac t Referred To Contact Diagnoses Lumbar disc herniation with radiculopathy Procedures PRO LAMINOTOMY, LUMBAR DISK, 1 INTRSP PRO MICROSURG TECHNIQUES, REQ OPER MICROSCOPE EMERGENCY IPI Referral ID Status Reason Start Date Expiration Date Visits Re quested Visits Authorized [id number] 1 1 Encounter Details Date Type Department Care Team (Late st Contact Info) Description 10/25/2019 12:58 PM EST - 10/25/2019 4:43 PM EST Surgery [place] [address] Denzel Madison MD [facility] [place] [address] LAMINOTOMY, DECOMPRESSION, FORAMINOTOMY, LUMBAR (WRVU 12) Social History Tobacco Use Types Packs/Day Years [...] Sign Reading Time Taken Comments Blood Pressure 134/92 10/25/2019 4:30 PM EST Pulse 65 10/25/2019 4:30 PM EST Temperature 36.1 ??C (97 ??F) 10/25/2019 4:15 PM EST Respiratory Rate 13 10/25/2019 4:30 PM EST Oxygen Saturation 97% 10/25/2019 4:30 PM EST Inhaled Oxygen Concentration - - Weight 108 kg (238 lb) 10/25/2019 11:57 AM EST Height - - Body Mass Index 34.15 07/27/2019 3:59 PM EDT documented in this encounter Discharge Summaries * Salud Martinez APRN - 10/26/2019 9:00 AM EST Patient Name: Enoc Esteban Patient Age: 59 y.o. Admit date: 10/25/2019 Discharge Date and Time: 10/26/2019 Attending Physician: Denzel Madison MD Discharging Provider: Salud Martinez APRN Discharging Service: NEUROSURGERY Operations/Major Procedures: 10/26/2019, Dr. Madison: L4-L5 hemilaminectomy & microdiscectomy Active Hospital Problems: Active Hospital Problems Diagnosis ??? Lumbar radiculopathy Resolved Hospital Problems No resolved problems to display. Active Non Hospital Problems: Active Non-Hospital Problems Diagnosis ??? Atrial fibrillation ??? Radiculopathy of cervical region ??? History of elbow surgery, right Dr. Howard, 10/16/2014 exc prox ulna entesophyte ??? Pain in right elbow ??? Fracture of left small finger, proximal, closed ??? HTN (hypertension) ??? Tophaceous gout ??? Hyperuricemia ??? Mild vitamin D deficiency ??? Asthma ??? TYRON (obstructive sleep apnea) History of Presentation: Enoc Esteban is a 59 y.o. male with a several year history of low back pain that has progressed tosevere left leg pain over the last several months. The patient reports that over the past several weeks he has tried a Medrol Dosepak and Gabapentin with persistence of left leg pain. It is affectinghis overall quality of life. He reports associated weakness secondary to pain. He denies any bowel or bladder difficulty.. ?? Hospital Course: Patient was brought to the OR with Dr. Madison to undergo aforementioned procedure. There were no operative complications. He was recovered in the PACU and then transferred to the surgical hutton once stable. He was observed overnight and discharged to home in stable condition on POD #1. He may resume Eliquis on POD #10. Important Studies and Lab Data: Labs: No results found for this or any previous visit (from the past 24 hour(s)). Studies: None this admisson. Pending Studies and Lab Data: None Discharge Condition: Good Discharge to: Home Discharge Medications: Your Medications New Medications Dose Details acetaminophen 325 mg Tab Commonly known as: Tylenol Take 2 tablets by mouth every 4 hours as needed for Pain. 650 mg Quantity: 30 tablet Refills: 1 cyclobenzaprine 10 mg Tab Commonly known as: Flexeril Take 1 tablet by mouth 3 times daily as needed for Muscle spasms. 10 mg Quantity: 30 tablet Refills: 0 Continued medications with new dosing Dose Details Eliquis 5 mg Tab Resume 10 days after surgery. Generic drug: apixaban Start taking on: November 04, 2019 What changed: ?? See the new instructions. ?? These instructions start on November 04, 2019. If you are unsure what to do until then, ask your doctor or other care provider. Refills: 6 Continued medications, unchanged Dose Details Ambien 10 mg Tab Take 10 mg by mouth nightly as needed. Generic drug: zolpidem 10 mg Refills: 0 gabapentin 100 mg Cap Commonly known as: Neurontin Take 1 capsule three times daily x7 days, then take 2 capsules three times daily x7 days, then take3 capsules three times daily Quantity: 90 capsule Refills: 12 HYDROcodone-acetaminophen 10-325 mg Tab Commonly known as: Gamaliel as needed. Refills: 0 ibuprofen 800 mg Tab Commonly known as: Advil;Motrin TAKE ONE TABLET BY MOUTH THREE TIMES A DAY WITH FOOD NEEDED Refills: 3 ipratropium-albuterol 20-100 mcg/actuation Mist Commonly known as: COMBIVENT RESPIMAT Inhale 1 puff into the lungs as needed for Wheezing. 1 puff Refills: 0 losartan 50 mg Tab Commonly known as: Cozaar Take 1 tablet by mouth daily. 50 mg Quantity: 30 tablet Refills: 5 metoprolol succinate XL 50 mg Tablet sr Commonly known as: Toprol-XL Take 1 tablet by mouth daily. 50 mg Quantity: 90 tablet Refills: 3 Uloric 40 mg Tab Take 40 mg by mouth daily. Generic drug: febuxostat 40 mg Refills: 0 Viagra 100 mg Tab TAKE 1 TABLET BY MOUTH DAILY NEEDED MAX OF 1 TABLET IN 24 HOURS Generic drug: sildenafil Refills: 12 vitamin D 50,000 unit Cap Take 50,000 Units by mouth every 14 days. Generic drug: ergocalciferol 50,000 Units Refills: 3 STOPPED Medications methylPREDNISolone 4 mg Dspk Commonly known as: MEDROL DOSPACK Updated Allergies/ADRs: Allergies Allergen Reactions ??? Allopurinol Rash Follow-up Recommendations for Providers: See Below Instructions Given to Patient at Discharge: Patient Instructions SPINAL SURGERY DISCHARGE INSTRUCTIONS PRESCRIPTION INSTRUCTIONS: Please see the medication reconciliation list on this discharge summary for a current list of your medications. You may restart Eliquis 10 days after surgery. WHEN TO SEEK MEDICAL CARE: Signs or symptoms of an infection: - Fever over 101F - Redness, swelling, or increasing pain around your incision - Drainage of pus, blood, or clear fluid from your incision New neurologic symptoms: - New sensory changes such as numbness, tingling, or altered sensation - New weakness, unsteadiness, difficulty walking, or difficulty using your hands - New pain that radiates down your spine or into one of you extremities - New bowel or bladder dysfunction such as incontinence or retention Constipation not relieved by diet and/or nddj-spw-nivjhfq stool softeners and laxatives Nausea/vomiting (upset stomach) not controlled with anti-nausea medication Symptoms of a deep venous thrombosis (DVT) or pulmonary embolism (PE): - Swelling/warmth/redness of the leg - Pain in the leg, which can be worse with standing or walking - Chest pain or shortness of breath To help prevent a DVT: - Exercise regularly. Walking, at least several times daily, is helpful. - Ankle pump exercises (like pressing and releasing the gas pedal) should be done regularly. - Keep hydrated with water or other clear liquids (coffee/tea/cola can dehydrate you). - Avoid alcohol and crossing your legs. - Remember not to sit or lay in bed, while awake, for prolonged amounts of time. WOUND CARE: - Keep incisional site clean and dry. You can remove your dressing 2 days after surgery. - You may shower and shampoo incisional site, per your usual routine, 4 days after surgery. Do not submerge wound in bath, hot tub, pool until cleared by Neurosurgery at your follow-up appointment. - Your sutures are absorbable and will dissolve on their own. Steri-strips provide a dressing and will flake off on their own. DIET: - You may resume your usual diet. - A well-balanced diet is recommended for wound healing. - Prune juice or prunes can be added to your diet to assist with any constipation. ACTIVITY: - You should avoid lifting more than 5 lbs. - Restrict strenuous activity (such as running, jumping, jogging, shoveling, etc.) until cleared byyour surgical team DRIVING: - You may return to driving 2 weeks after surgery. - Do not drive while taking narcotic pain medication. SMOKING: - Smoking has a negative impact on bone healing, in terms of delayed union, nonunion, and more complications. Smoking is the leading preventable cause of , and quitting is the single most important thing you can do for your health. However, it's hard to quit smoking and you might need some help. Nicotine in tobacco is an addictive drug and it can be a very difficult to quit. Seventy percent of all adult smokers want to quit smoking but are overwhelmed with the process. We can help! Our Tobacco Dependence Clinics We have tobacco dependence clinics in these locations: ??? [facility]: [place], [place] ??? [facility] Tobacco Treatment [place], [place] Other Programs at [facility] in [place] ??? Living Free of Tobacco support group: For anyone who has quit tobacco or is considering quitting tobacco. [facility] Health Education Center, Level 4, [place] 3:30 to 4:30 p.m. on the thursday of every month. Other Programs in the Area ??? [facility] in [place] One-on-one counseling, hypnosis. Ros Hwang ??? [facility] in [place], [place] One-on-one counseling, QuitLine, classes. Beryl Chaudhary ??? [facility]: One-on-one counseling. All ages and incomes eligible. [facility]: Classes & support group. Filiberto Lopez ??? [facility] in [place], [place] One-on-one counseling, QuitLine, classes, hypnosis therapy. Rufina Duke Information about Quitting Smoking and Tobacco See our Quitting Smoking - Information and Materials page ([email or web address]- [email or web address]/information_on_quitting_smoking.html) for educational information about quitting smoking, downloadable smoking cessation materials, podcasts, websites, helplines, and more. FOLLOW UP PLAN: 1) Please follow up in the Neurosurgery Clinic in 4-[address] Madison. Please call the Neurosurgery Office at [phone] if you do not receive a scheduled appointment within two weeks. HOW TO REACH NEUROSURGERY Contact your Doctor Office Hours: Thursday through Thursday, 8am-5pm. Call . On weekends or after office hours: Call [phone] and ask the puff iron operator to page the Neurosurgery Resident technical consultant. IMPORTANT PHONE NUMBERS: Outpatient Nurse (Arely Roblero) Inpatient Nurses Neurosurgical Resident On-Call (after 5pm or before 8am) Neurosurgery offices (Thursday through Thursday between 8am-5pm): Adult Neurosurgery Dr. Tariq Perdue Pediatric Neurosurgery Dr. Alek Cisse Mid-level practitioners Alek Arellano, Physician Musical Instrument Supervisor Eric Foster, Physician Musical Instrument Supervisor Svetlana Bergman, Nurse Practitioner Louann Driscoll, Nurse Practitioner * Your surgeon may not be order desk caller, so be ready to tell about yourself and your surgery when you call, especially after hours or on the weekend. Salud Martinez APRN 10/26/2019 documented in this encounter Discharge Instructions * Patient Instructions* Salud Martinez, ENROLLMENT SPECIALIST - 10/26/2019 8:53 AM EST SPINAL SURGERY DISCHARGE INSTRUCTIONS PRESCRIPTION INSTRUCTIONS: Please see the medication reconciliation list on this discharge summary for a current list of your medications. You may restart Eliquis 10 days after surgery. WHEN TO SEEK MEDICAL CARE: Signs or symptoms of an infection: - Fever over 101F - Redness, swelling, or increasing pain around your incision - Drainage of pus, blood, or clear fluid from your incision New neurologic symptoms: - New sensory changes such as numbness, tingling, or altered sensation - New weakness, unsteadiness, difficulty walking, or difficulty using your hands - New pain that radiates down your spine or into one of you extremities - New bowel or bladder dysfunction such as incontinence or retention Constipation not relieved by diet and/or eqfv-zwa-hmefytt stool softeners and laxatives Nausea/vomiting (upset stomach) not controlled with anti-nausea medication Symptoms of a deep venous thrombosis (DVT) or pulmonary embolism (PE): - Swelling/warmth/redness of the leg - Pain in the leg, which can be worse with standing or walking - Chest pain or shortness of breath To help prevent a DVT: - Exercise regularly. Walking, at least several times daily, is helpful. - Ankle pump exercises (like pressing and releasing the gas pedal) should be done regularly. - Keep hydrated with water or other clear liquids (coffee/tea/cola can dehydrate you). - Avoid alcohol and crossing your legs. - Remember not to sit or lay in bed, while awake, for prolonged amounts of time. WOUND CARE: - Keep incisional site clean and dry. You can remove your dressing 2 days after surgery. - You may shower and shampoo incisional site, per your usual routine, 4 days after surgery. Do not submerge wound in bath, hot tub, pool until cleared by Neurosurgery at your follow-up appointment. - Your sutures are absorbable and will dissolve on their own. Steri-strips provide a dressing and will flake off on their own. DIET: - You may resume your usual diet. - A well-balanced diet is recommended for wound healing. - Prune juice or prunes can be added to your diet to assist with any constipation. ACTIVITY: - You should avoid lifting more than 5 lbs. - Restrict strenuous activity (such as running, jumping, jogging, shoveling, etc.) until cleared byyour surgical team DRIVING: - You may return to driving 2 weeks after surgery. - Do not drive while taking narcotic pain medication. SMOKING: - Smoking has a negative impact on bone healing, in terms of delayed union, nonunion, and more complications. Smoking is the leading preventable cause of , and quitting is the single most important thing you can do for your health. However, it's hard to quit smoking and you might need some help. Nicotine in tobacco is an addictive drug and it can be a very difficult to quit. Seventy percent of all adult smokers want to quit smoking but are overwhelmed with the process. We can help! Our Tobacco Dependence Clinics We have tobacco dependence clinics in these locations: ??? [facility]: [place], [place] ??? [facility] Tobacco Treatment [place], [place] Other Programs at [facility] in [place] ??? Living Free of Tobacco support group: For anyone who has quit tobacco or is considering quitting tobacco. [facility] Health Education Center, Level 4, [place] 3:30 to 4:30 p.m. on the thursday of every month. Other Programs in the Area ??? [facility] in [place] One-on-one counseling, hypnosis. Ros Hwang ??? [facility] in [place], [place] One-on-one counseling, QuitLine, classes. Beryl Chaudhary ??? [facility]: One-on-one counseling. All ages and incomes eligible. [facility]: Classes & support group. Filiberto Lopez ??? [facility] in [place], [place] One-on-one counseling, QuitLine, classes, hypnosis therapy. Rufina Duke Information about Quitting Smoking and Tobacco See our Quitting Smoking - Information and Materials page (http://[email or web address]- information/[email or web address]/information_on_quitting_smoking.html) for educational information about quitting smoking, downloadable smoking cessation materials, podcasts, websites, helplines, and more. FOLLOW UP PLAN: 1) Please follow up in the Neurosurgery Clinic in 4-[address] Madison. Please call the Neurosurgery Office at [phone] if you do not receive a scheduled appointment within two weeks. documented in this encounter Medications at Time of Discharge Medication Sig Dispensed Refills Start Date End Date ipratropium-albuterol (COMBIVENT RESPIMAT) 20-100 mcg/actuation Mist Inhale [...] 10 mg by mouth nightly as needed. ELIQUIS 5 mg Tablet Resume 10 days after surgery. 6 11/04/2019 04/21/2024 acetaminophen (TYLENOL) 325 mg Tablet Take 2 tablets by mouth every 4 hours as needed for Pain. 30 tablet 1 10/26/2019 04/13/2020 cyclobenzaprine (FLEXERIL) 10 mg Tablet Take 1 tablet by mouth 3 times daily as needed for Muscle spasms. 30 tablet 10/26/2019 11/23/2019 febuxostat (ULORIC) 40 mg Tablet Take 40 mg by mouth daily. 11/07/2019 ibuprofen (ADVIL;MOTRIN) 800 mg Tablet TAKE ONE TABLET BY MOUTH THREE TIMES A DAY WITH FOOD NEEDED 3 07/12/2019 04/13/2020 gabapentin (NEURONTIN) 100 mg Capsule Take 1 capsule three times daily x7 days, then take 2 capsules three times daily x7 days, then take 3 capsules three times daily 90 capsule 12 07/19/2019 01/30/2021 HYDROcodone-acetaminop hen (NORCO) 10-325 mg Tablet Take 2 tablets by mouth every 8 hours as needed. 03/29/2015 04/13/2020 documented as of this encounter Progress Notes * Leslie Drew RN - 10/26/2019 11:03 AM EST Office of Care Management Assessment Medical record reviewed. Plan of care and patient status discussed with direct care RN and/or Care Team in multidisciplinary rounds. Screenin y.o. male here for L4-5 hemilaminectomy & microdiscectomy Present on Admission: ??? Lumbar radiculopathy Patient has not been admitted to a hospital within the last 30 days. Information known about that admission: NA. Patient receiving hospital care under Inpatient status. Admission order reviewed. Primary Insurance on file: [employer] [place] Secondary Insurance on file: N/A Primary care provider on file: Alek Esparza MD [phone] Advance Directive on file and Code Status: <no information>, Full Code Patient???s Functional Status:independent- LE weakness Living Situation:Lives home; denies [address] [facility] [address] Supports:family, frineds Assessment: Patient with no apparent RNCM/SW needs at this time. No housing, transportation, insurance, resources concerns identified at this time. Supports in place to achieve a safe post-hospital transition. No identified barriers to accessing necessary care and/or follow-up after discharge. Plan: Patient to d/c to home via private vehicle when medically ready. director it/Application Penetration Tester will continue to follow patient???s progress and remain available if situation changes for coordination of care, psychosocial support and/or discharge planning. Leslie Drew RN Pager [phone] * Svetlana Bergman APRN - 10/26/2019 3:22 AM EST NEUROSURGERY PROGRESS NOTE ID: HD# 1 POD # 1 Day Post-Op L4-5 hemilaminectomy & microdiscectomy 59 year old male with lumbar degenerative disc disease and L5 radiculopathy who is now s/p electiveL4-5 hemilaminectomy & microdiscectomy INTERVAL HX/ROS: -Transferred from PACU to floor -No acute events overnight -c/o incisional pain, LEFT leg strength better, denies numbness/tingling -Mobilizing, voiding spontaneously, wants to go home this morning MEDICATIONS: Scheduled Meds: ??? gabapentin 300 mg Oral TID ??? losartan 50 mg Oral Daily ??? metoprolol succinate XL 50 mg Oral Daily ??? febuxostat 40 mg Oral Daily ??? sodium chloride 0.9 % (flush) 5 mL Intravenous BID ??? senna-docusate 2 tablet Oral BID ??? methocarbamol 500 mg Oral Q6H ??? ceFAZolin 2 g Intravenous Q8H Continuous Infusions: ??? sodium chloride 0.9% infusion 1,000 mL Intravenous Continuous ### PRN Meds: zolpidem, sodium chloride 0.9 % (flush), lidocaine, bisacodyl, magnesium hydroxide, polyethylene glycol, magnesium citrate OR magnesium citrate, ondansetron OR ondansetron, prochlorperazine OR prochlorperazine, cyclobenzaprine, labetalol, hydrALAZINE, acetaminophen OR acetaminophen, oxyCODONE OR oxyCODONE, bacitracin, gelatin adsorbable 100, lidocaine-EPINEPHrine, thrombin (bovine), methylPREDNISolone acetate EXAM: Vitals: Patient Vitals for the past 24 hrs: Temp Pulse Resp BP SpO2 O2 Flow Rate (L/min) O2 Device 10/25/19 1149 36.6 ??C (97.9 ??F) 78 18 123/88 99 % -- -- 10/25/19 1615 36.1 ??C (97 ??F) 65 12 129/89 100 % 6 L/min Simple mask 10/25/19 1630 -- 65 13 (!) 134/92 97 % -- RA 10/25/19 1645 -- 68 10 (!) 124/93 96 % -- RA 10/25/19 1700 -- 70 11 134/73 96 % -- RA 10/25/19 1730 -- 68 11 121/75 95 % -- RA 10/25/19 1800 36.3 ??C (97.3 ??F) 70 11 114/85 97 % -- RA 10/25/19 1830 -- 71 9 112/75 94 % -- RA 10/25/19 1900 -- 74 9 (!) 128/93 94 % -- RA 10/25/19 1930 -- 94 12 122/74 97 % -- RA 10/25/191999 36.3 ??C (97.3 ??F) 77 15 118/81 96 % -- RA 10/25/192029 -- 80 12 123/78 98 % -- RA 10/25/192138 36.6 ??C (97.9 ??F) -- 15 136/89 93 % -- RA 10/25/19 2336 36.6 ??C (97.8 ??F) -- 16 140/88 94 % -- RA BMI: Weight: 108 kg (238 lb) (10/25/19 1157) I/O: I/O last 3 completed shifts: In: 1190 [P.O.:390; I.V.:800] Out: 615 [Urine:600; Blood:15] Awake, A&Ox3 Motor: RUE/LUE 5/5 RLE 5/5 LLE 4+/5 hip flexor, otherwise 5/5 Sensation intact to LT x4 Surgical dressing C/D/I LABS: No results for input(s): WBC, HGB, PLATELET in the last 72 hours. No results for input(s): NA, K, CL, CO2, BUN, CREATININE in the last 72 hours. No results for input(s): PT, INR in the last 72 hours. IMAGING: No new imaging A/P: 59 year old male with history of atrial fibrillation [on Eliquis, held for surgery] with lumbar degenerative disc disease and L5 radiculopathy who is now s/p elective L4-5 hemilaminectomy & microdiscectomy. -Neuro checks Q4H -Mobilize -SCDs while in bed for DVT ppx -Will discuss restarting Eliquis with Dr. Madison this morning -Plan is for discharge home today PLEASE PAGE [phone] WITH QUESTIONS Active Hospital Problems Diagnosis ??? Lumbar radiculopathy Resolved Hospital Problems No resolved problems to display. Active Non-Hospital Problems Diagnosis ??? Atrial fibrillation ??? Radiculopathy of cervical region ??? History of elbow surgery, right Dr. Howard, 10/16/2014 exc prox ulna entesophyte ??? Pain in right elbow ??? Fracture of left small finger, proximal, closed ??? HTN (hypertension) ??? Tophaceous gout ??? Hyperuricemia ??? Mild vitamin D deficiency ??? Asthma ??? TYRON (obstructive sleep apnea) Svetlana Bergman APRN 10/26/2019 * Svetlana Bergman APRN - 10/25/2019 7:05 PM EST NEUROSURGERY PROGRESS NOTE Post-Op Check ID: HD# 0 POD # Day of Surgery L4-5 hemilaminectomy & microdiscectomy 59 year old male with lumbar degenerative disc disease and L5 radiculopathy who is now s/p electiveL4-5 hemilaminectomy & microdiscectomy INTERVAL HX/ROS: -In PACU awaiting bed placement -Complaining of pain in his buttocks which he attributes to sitting in the hospital bed -Pre-operative pain in LEFT leg seems to be gone -Feels like LEFT leg is stronger than preop MEDICATIONS: Scheduled Meds: ??? gabapentin 300 mg Oral TID ??? losartan 50 mg Oral Daily ??? metoprolol succinate XL 50 mg Oral Daily ??? febuxostat 40 mg Oral Daily ??? ceFAZolin 2 g Intravenous Q8H Continuous Infusions: ??? sodium chloride 0.9% infusion 1,000 mL Intravenous Continuous ### PRN Meds: sodium chloride 0.9 % (flush), acetaminophen OR acetaminophen, oxyCODONE OR oxyCODONE, naloxone, HYDROmorphone, ondansetron, bacitracin, gelatin adsorbable 100, lidocaine-EPINEPHrine, thrombin (bovine), methylPREDNISolone acetate EXAM: Vitals: Patient Vitals for the past 24 hrs: Temp Pulse Resp BP SpO2 O2 Flow Rate (L/min) O2 Device 10/25/19 1149 36.6 ??C (97.9 ??F) 78 18 123/88 99 % -- -- 10/25/19 1615 36.1 ??C (97 ??F) 65 12 129/89 100 % 6 L/min Simple mask 10/25/19 1630 -- 65 13 (!) 134/92 97 % -- RA 10/25/19 1645 -- 68 10 (!) 124/93 96 % -- -- 10/25/19 1700 -- 70 11 134/73 96 % -- RA 10/25/19 1730 -- 68 11 121/75 95 % -- RA 10/25/19 1800 36.3 ??C (97.3 ??F) 70 11 114/85 97 % -- RA 10/25/19 1830 -- 71 9 112/75 94 % -- RA 10/25/19 1900 -- 74 9 (!) 128/93 94 % -- RA BMI: Weight: 108 kg (238 lb) (10/25/19 1157) I/O: I/O last 3 completed shifts: In: 1190 [P.O.:390; I.V.:800] Out: 615 [Urine:600; Blood:15] Sitting up in hospital bed eating dinner in NAD Awake, A&Ox3 CV: 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 No results for input(s): NA, K, CL, CO2, BUN, CREATININE in the last 72 hours. No results for input(s): PT, INR in the last 72 hours. IMAGING: No new imaging A/P: 59 year old male with history of atrial fibrillation [on Eliquis, held for surgery] with lumbar degenerative disc disease and L5 radiculopathy who is now s/p elective L4-5 hemilaminectomy & microdiscectomy. He reports that his pre- operative symptoms of LEFT leg pain and weakness are almost completely gone. He has some scattered neuropathy in his feet which is at his pre-operative baseline. He has no pain currently other than some minor incisional pain and has a trace amount of weakness [4+/5] in his LEFT hip flexor, but is otherwise full strength. -Transfer to floor from PACU when able -Neuro checks Q4H -OOB ad flo -Diet as tolerated -SCDs while in bed for DVT ppx -Scheduled Robaxin and PRN Flexeril for muscle spasm -Oxycodone for pain control -Hold anticoagulation/antiplatelets for now, will discuss with Dr. Madison when OK to resume post-operatively -Montior for urinary retention -Continue home BP meds/gabapentin -OK to stop MIVF once taking PO PLEASE PAGE [id number] WITH QUESTIONS Active Hospital Problems Diagnosis ??? Lumbar radiculopathy Resolved Hospital Problems No resolved problems to display. Active Non-Hospital Problems Diagnosis ??? Atrial fibrillation ??? Radiculopathy of cervical region ??? History of elbow surgery, right Dr. Howard, 10/16/2014 exc prox ulna entesophyte ??? Pain in right elbow ??? Fracture of left small finger, proximal, closed ??? HTN (hypertension) ??? Tophaceous gout ??? Hyperuricemia ??? Mild vitamin D deficiency ??? Asthma ??? TYRON (obstructive sleep apnea) Svetlana Bergman, JOSE JUAN 10/25/2019 * Eris Mejia RN - 10/25/2019 6:23 PM EST Report from [facility] [place] for break coverage. Patient doing well. Awaiting room assignment and dinner tray. Will monitor. * Beryl Rincon RN - 10/25/2019 5:09 PM EST 1606 pt out to pacu from or all alarms on and audible. Pt is able to move all extremities. Dressingclean dry and intact. Iv sites flushed and patent. Pt has a flat affect. 1700 family at bedside 1800 ordered dinner for pt. 1830 pt eating dinner. 1910 at bedside 1999 unable to give ordered meds. sent message to pharmacy to sent meds to pacu for pt. Awaiting arrival documented in this encounter H&P Notes * Constantine Salgado MD - 10/25/2019 12:02 PM EST Neurosurgery Pre-operative H&P 10/25/2019 Enoc Esteban [id number] CC: L L4-5 HNP HPI: 59 y.o. male here for L L4-5 discectomy. Denies headache, nausea, vomiting, numbness, weakness, paresthesias, LOC, seizures, difficulties with balance, visual or auditory symptoms. Denies bowel or bladder symptoms. PMH/PSH: History reviewed. No pertinent past medical history. Past Surgical History: Procedure Laterality Date ??? PRO CLOSED TREAT TOE FX 02/08/2013 CLOSED TREATMENT FX PHALANX OR PHALANGES performed by Rohan Duarte MD at [facility] ??? PRO REMOVAL OF ELBOW BURSA Right 10/16/2014 EXCISION OF OLECRANON BURSA performed by Anupama Howard MD at [facility] Medications: No current facility-administered medications on file prior to encounter. Current Outpatient Medications on File Prior to Encounter Medication Sig Dispense Refill ??? VITAMIN D 50,000 unit Capsule Take [...] capsules three times daily 90 capsule 12 ??? ULORIC 80 mg Tablet Take 1 tablet by mouth daily (Patient taking differently: Take 40 mg by mouth daily. Take 1 tablet by mouth daily) 90 tablet 4 ??? ELIQUIS 5 mg Tablet TAKE ONE TABLET BY MOUTH TWICE A DAY 6 ??? losartan (COZAAR) 50 mg Tablet Take 1 tablet by mouth daily. 30 tablet 5 ??? HYDROcodone-acetaminophen (NORCO) 10-325 mg Tablet as needed. ??? albuterol-ipratropium (COMBIVENT) 18-103 mcg/Actuation inhaler (Patient taking differently: prn) ??? methylPREDNISolone (MEDROL DOSPACK) 4 mg Tablets, Dose Pack Use as directed on product package.(Patient not taking: Reported on 07/27/2019) 21 tablet 0 ??? VIAGRA 100 mg Tablet TAKE 1 TABLET BY MOUTH DAILY NEEDED MAX OF 1 TABLET IN 24 HOURS 12 ??? zolpidem (AMBIEN) 10 mg tablet Take 10 mg by mouth nightly as needed. Allergies: NKDA Family Hx: Reviewed, noncontributory Social Hx: Social History Socioeconomic History ??? Marital status: Single Spouse name: None ??? Number of children: None ??? Years of education: None ??? Highest education level: None Occupational History ??? None Social Needs ??? Financial resource strain: None ??? Food insecurity: Worry: None Inability: None ??? Transportation needs: Medical: None Non-medical: None Tobacco Use ??? Smoking status: Never Smoker ??? Smokeless tobacco: Never Used Substance and Sexual Activity ??? Alcohol use: Yes Comment: 2-3 drinks daily ??? Drug use: Yes Types: Marijuana Comment: non medical.. uses for sleep / pain ??? Sexual activity: None Lifestyle ??? Physical activity: Days per week: None Minutes per session: None ??? Stress: None Relationships ??? Social connections: Talks on phone: None Gets together: None Attends episcopal service: None Active member of club or organization: None Attends meetings of clubs or organizations: None Relationship status: None ??? Intimate partner violence: Fear of current or ex partner: None Emotionally abused: None Physically abused: None Forced sexual activity: None Other Topics Concern ??? None Social History Narrative ??? None ROS: Constitutional: No recent weight loss / fevers / chills / night sweats. HEENT: No recent visual changes / hearing changes. Cardiovascular: No chest pain / palpitations. Pulmonary: No shortness of breath / cough GI: No abdominal pain / vomiting / change in bowel pattern : No dysuria / urinary retention / urinary incontinence. Physical Exam: Vital Signs: BP 123/88 (BP Location (NBP): Left arm) Pulse 78 Temp 36.6 ??C (97.9 ??F) (Temporal) Resp 18 Wt 108 kg (238 lb) SpO2 99% BMI 34.15 kg/m?? General: NAD. CVS: RRR Resp: CTAB HEENT: Atraumatic, normocephalic Neuro: Mental Status/Cognitive: Awake, alert, oriented x3 Speech: Fluent, appropriate Cranial Nerves: CN II - Visual acuity and zarate grossly intact, PERRL CN III, IV, - EOMI CN VII - No facial asymmetry CN IX, X - Palate and uvula midline CN XI - Trapezius 5/5 bilat CN XII - Tongue midline Motor: No pronator drift. Tone: Normal Power: Segment Muscle Action Right Left C5 Biceps Elbow flexion 5 5 C6 Extensor carpi radialis Wrist extension 5 5 C7 Triceps Elbow extension 5 5 C8, T1 Hand intrinsics Grasp 5 5 L2 Iliopsoas Hip flexion 5 4 L3 Quadriceps Knee extension 5 5 L4 Tibialis anterior Dorsiflexion 5 5 L5 Extensor hallucis Great toe extension 5 5 S1 Gastrocnemius Plantar flexion 5 5 Labs: No results for input(s): NA, K, CL, CO2, BUN, CREATININE, GLUCOSE, CALCIUM, MAGNESIUM, PHOS in the last 72 hours. Invalid input(s): CAION No results for input(s): WBC, HGB, HCT, MCV, PLATELET in the last 72 hours. Invalid input(s): RDW No results for input(s): PT, INR, FIBRINOGEN in the last 72 hours. Invalid input(s): PROTHROMBIN No results for input(s): AST, ALT, ALKPHOS, ALB, LIPASE in the last 72 hours. Invalid input(s): TBILI, TP No results for input(s): HDL in the last 72 hours. Invalid input(s): CHOLESTEROL, LDL, TG Assessment and Plan: -Proceed to OR as planned documented in this encounter Miscellaneous Notes * Plan of Care - Freddie De La O RN - 10/26/2019 5:05 AM EST Problem: Patient Care Overview Goal: Plan of Care Review Outcome: Ongoing (Interventions Implemented as Appropriate) 10/26/19 0502 Coping/Psychosocial Plan Of Care Reviewed With patient OUTCOME EVALUATION NOTE: OUTCOME SUMMARY: Pt had a great night, slept well. Pain is well controlled with current regime. Pt has been up to BRwith SBA and walker, voided 800 early in shift. Back dressing is CDI, no drainage. PLAN MOVING FORWARD: DC today INDIVIDUALIZED FALL PREVENTION INTERVENTIONS: Patient-specific fall risk factors per assessment: Unsteady weak gait Assistance: SBA, Supervision: Arms reach, Surveillance: Bed locked in low position, call howard within reach, purposeful hourly rounding, clutter free environment, bed/chair alarm on, Patient-specific fall prevention interventions for sensory deficits provided: na CPG GOAL OUTCOME EVALUATION: Continue care plan as documented. * Op Note - Denzel Madison MD - 10/25/2019 11:17 PM EST [facility] [place] Patient Name: Enoc Esteban : [id number] MR#: [id number] Case Date: 10/25/2019 Surgeon: Surgeon(s) and Role: * Denzel Madison MD - Primary * Constantine Salgado MD - Resident Preoperative diagnosis: Left L5 radiculopathy Postoperative diagnosis: Same Procedures performed: 1) Left L4 laminotomy 2) Left L4-5 medial facetectomy, foraminotomy, and microdiscectomy 3) Use of operating microscope 4) Use of intraoperative fluoroscopy Anesthesia: General Estimated Blood Loss: <50 mL Specimens removed during surgery: None Drains: None Surgical Closure: Primary Closure - skin incision is completely closed without any wires, josé, drains or other devices Disposition: awakened from anesthesia, extubated and taken to the recovery room in a stable condition, having suffered no apparent untoward event. Condition: doing well without problems (Please see the Surgical Encounter Summary for any Implant and Specimen details pertinent to this patient.) HPI/Surgical Indications: This 59-year-old male presented with worsening pain in his left leg. The patient tried conservative management including epidural steroid injection and physical therapy withlittle benefit. She was offered surgery for decompression of the left L5 nerve root. Risks, benefits, and alternatives to surgery were discussed in detail. The patient understood all risks and was eager to proceed with surgery. Procedure Description: The patient was brought to the operating room and underwent general anesthesia after endotracheal intubation. He was positioned prone on the OR table with all pressure points appropriately padded. An X-ray was obtained to plan the midline incision at the L4-5 region. The surgical site was then prepped and then draped in the usual sterile fashion. A timeout was performed. Incision was made and dissection was carried down on the left side through the lumbodorsal fascia to identify the spinous process and lamina of L4. An X-ray was obtained to confirm the correct operative level. Retractors were placed to maintain exposure. We then brought the operating microscope over the operative field. Using a pneumatic drill, we proceeded to do a laminotomy at L4. A medial facetectomy at the L4-5 level was also performed. We then used Kerrison rongeurs to remove the ligamentum flavum. The dura was identified without any issues. We then proceeded to do a foraminotomy to decompress the L5 traversing nerve root. The thecal sac was next mobilized medially. A small annulotomy was made at the L4-5 disc space. Using a micropituitary instrument, we were able to retrieve a smallamount of disc material with good decompression of the central canal. After decompression, there was no compression noted on the L5 nerve root. At this point, we proceeded to irrigate the field copiously with antibiotic saline. The laminotomy defect was then covered with a piece of Gelfoam soaked in Depo-Medrol. We next proceeded to close the fascia in a watertight fashion. The wound was again copiously irrigated with antibiotic saline. The subcutaneous tissue was reapproximated with 2-0 Vicryl in an inverted fashion. The skin was then closed with 4-0 monocryl in a subcuticular fashion. All counts were correct at the end of the procedure. There were no intraoperative complications. The patient was extubated at the end of the case and brought to the recovery room at his preoperative baseline. Denzel Vaughan MD, was the attending physician supervising the resident in the above care and I was present with the resident for the entire procedure. * Brief Op Note - Constantine Salgado MD - 10/25/2019 3:53 PM EST Brief Operative Note Patient Name: Enoc Esteban : [id number] MR#: [id number] Case Date: 10/25/2019 Surgeon: Surgeon(s) and Role: * Denzel Madison MD - Primary * Constantine Salgado MD - Resident Preoperative diagnosis: Lumbar disc herniation with radiculopathy Postoperative diagnosis: Lumbar disc herniation with radiculopathy Procedure(s) (LRB): LAMINOTOMY, DECOMPRESSION, FORAMINOTOMY, LUMBAR (WRVU 13.18) (N/A) MICROSCOPE USE (WRVU 3.46) (N/A) Anesthesia: General Findings: L L4 alan-lami and discectomy Complications: none Intake: Intraprocedure Crystalloid Total None Transfusion No data found in the last 1 encounters. Output: Estimated Blood Loss: 15 mL Urine Output:: 100 mL Other Output: (no other output recorded) Drains: none Specimens removed during surgery: None Disposition: awakened from anesthesia, extubated and taken to the recovery room in a stable condition, having suffered no apparent untoward event. Condition: doing well without problems Attestation: Case Date: 10/25/2019 (Please see the Surgical Encounter Summary for any Implant and Specimen details pertinent to this patient.) documented in this encounter Plan of Treatment Not on file documented as of this encounter Procedures Procedure Name Priority Date/Time Associated Diagnosis Comments XR FLUORO NO RAD <1HR - OR USE Routine 10/25/2019 3:54 PM EST Microsurg Techniques, Req Oper Microscope ([id number]) 10/25/2019 12:34 PM EST Lumbar disc herniation with radiculopathy Laminotomy, Lumbar Disk, 1 Intrsp ([id number]) 10/25/2019 12:34 PM EST Lumbar disc herniation with radiculopathy documented in this encounter Results * XR Fluoro No Rad <1Hr - OR Use (10/25/2019 3:54 PM EST) Narrative CHITO - 10/25/2019 3:54 PM EST This exam is auto-finalizing. No interpretation was done. Denzel Madison MD IMG FLUORO ORDERABLE S CHITO [place] documented in this encounter Visit Diagnoses Not on filedocumented in this encounter Admitting Diagnoses Diagnosis Lumbar radiculopathy Thoracic or lumbosacral neuritis or radiculitis, unspecified documented in this encounter Administered Medications Inactive Administered Medications - up to 3 most recent administrations Medication Order MAR Action Action Date Dose Rate Site acetaminophen (Tylenol) suppository 650 mg 650 mg, Rectal, EVERY 4 HOURS PRN, Starting on Thu10/25/19 at 1614, Until Thu10/26/19 at 1318, Pain, Mild pain (1-3), Give per rectum (ND) if unable to take PO. Do not exceed 4000 mg acetaminophen per day., Routine acetaminophen (Tylenol) tablet 650 mg 650 mg, Oral, EVERY 4 HOURS PRN, Starting on Thu10/25/19 at 1614, Until Thu10/26/19 at 1318, Pain, Mild pain (1-3), Do not exceed 4000 mg acetaminophen per day., Routine Given 10/26/2019 8:34 AM EST 650 mg Given 10/25/2019 9:50 PM EST 650 mg bacitracin injection ONCE PRN, Starting on Thu10/25/19 at 1352, Until Thu10/26/19 at 1318, Intra-Operative (Intra-Procedure), Routine Given 10/25/2019 1:52 PM EST 10,000 Units 19- Surgical Site cyclobenzaprine (Flexeril) tablet 10 mg 10 mg, Oral, 3 TIMES DAILY PRN, Starting on Thu10/25/19 at 2044, Until Thu10/26/19 at 1318, Muscle spasms, Routine Given 10/26/2019 10:54 AM EST 10 mg febuxostat (Uloric) tablet 40 mg 40 mg, Oral, DAILY, First dose on Thu10/25/19 at 2030, Until Discontinued, Routine Given 10/26/2019 8:30 AM EST 40 mg gabapentin (Neurontin) capsule 300 mg 300 mg, Oral, 3 TIMES DAILY, First dose on Thu10/25/19 at 1745, Until Discontinued, Routine Given 10/26/2019 8:27 AM EST 300 mg Given 10/25/2019 9:51 PM EST 300 mg Given 10/25/2019 6:52 PM EST 300 mg gelatin adsorbable 100 (GELFOAM) sponge ONCE PRN, Starting on Thu10/25/19 at 1352, Until Thu10/26/19 at 1318, Intra-Operative (Intra-Procedure), Routine Given 10/25/2019 1:52 PM EST 1 each lidocaine-EPINEPHrine 1 %-1:100,000 injection ONCE PRN, Starting on Thu10/25/19 at 1342, Until Thu10/26/19 at 1318, Intra-Operative (Intra-Procedure), Routine Given 10/25/2019 1:42 PM EST 7 mLs 19- Surgical Site losartan (Cozaar) tablet 50 mg 50 mg, Oral, DAILY, First dose on Thu10/25/19 at 1745, Until Discontinued, Routine Given 10/26/2019 8:26 AM EST 50 mg magnesium citrate oral liquid 300 mL 300 mL, Oral, DAILY PRN, Starting on Thu10/25/19 at 2044, Until Thu10/26/19 at 1318, Constipation, Administer if no bowel movement within 48 hrs to achieve 1) one bowel movement at least every 48 hrs and 2) without straining. If multiple PRN bowel medications ordered, start with polyethylene glycol, then lactulose, then oral bisacodyl, then bisacodyl suppository, then magnesium citrate, then tap water enema. Multiple medications may be given concomitantly for constipation. May repeat times 1 in 4 hours., Routine magnesium citrate oral liquid 300 mL 300 mL, Per G Tube, DAILY PRN, Starting on Thu10/25/19 at 2044, Until Thu10/26/19 at 1318, Constipation, Administer if no bowel movement within 48 hrs to achieve 1) one bowel movement at least every 48 hrs and 2) without straining. If multiple PRN bowel medications ordered, start with polyethylene glycol, then lactulose, then oral bisacodyl, then bisacodyl suppository, then magnesium citrate, then tap water enema. Multiple medications may be given concomitantly for constipation. May repeat times 1 in 4 hours., Routine methocarbamol (Robaxin) tablet 500 mg 500 mg, Oral, EVERY 6 HOURS, 8 doses, First dose on Thu10/25/19 at 2030, Last dose on Thu10/27/19 at 1430, STAT Given 10/26/2019 5:54 AM EST 500 mg Given 10/25/2019 8:39 PM EST 500 mg methylPREDNISolone acetate (DEPO-Medrol) injection ONCE PRN, Starting on Thu10/25/19 at 1518, Until Thu10/26/19 at 1318, Intra-Operative (Intra-Procedure), Routine Given 10/25/2019 3:18 PM EST 40 mg 19- Surgical Site metoprolol succinate XL (Toprol-XL) tablet 50 mg 50 mg, Oral, DAILY, First dose on Thu10/25/19 at 1745, Until Discontinued, DO NOT CRUSH OR OPEN, Routine Given 10/26/2019 8:27 AM EST 50 mg ondansetron (ZOFRAN) injection 4-8 mg 4-8 mg, Intravenous, EVERY 8 HOURS PRN, Starting on Thu10/25/19 at 2044, Until Thu10/26/19 at 1318, Nausea, If multiple antiemetics are ordered, use ondansetron first, prochlorperazine second, and metaclopramide third. Start with 4mg and if ineffective in 30 minutes, give an additional 4mg ondansetron (Zofran) tablet 4-8 mg 4-8 mg, Oral, EVERY 8 HOURS PRN, Starting on Thu10/25/19 at 2044, Until Thu10/26/19 at 1318, Nausea, Vomiting, If multiple antiemetics are ordered, use ondansetron first, prochlorperazine second, and metaclopramide third. PO Preferred. If patient unable to take PO, may give IV if ordered. Start with 4mg and if ineffective in 45 minutes, give an additional 4mg, Routine oxyCODONE (Roxicodone) tablet 10 mg 10 mg, Oral, EVERY 4 HOURS PRN, Starting on Thu10/25/19 at 1614, Until Thu10/26/19 at 1318, Pain, severe pain (7-10), Routine Given 10/26/2019 10:54 AM EST 10 mg Given 10/25/2019 9:51 PM EST 10 mg Given 10/25/2019 4:42 PM EST 10 mg oxyCODONE (Roxicodone) tablet 5 mg 5 mg, Oral, EVERY 4 HOURS PRN, Starting on Thu10/25/19 at 1614, Until Thu10/26/19 at 1318, Pain, moderate pain (4-6), Routine Given 10/26/2019 5:54 AM EST 5 m g prochlorperazine (COMPAZINE) injection 10 mg 10 mg, Intravenous, EVERY 6 HOURS PRN, Starting on Thu10/25/19 at 2044, Until Thu10/26/19 at 1318, Nausea, Vomiting, If multiple antiemetics are ordered, use ondansetron first, prochlorperazine second, and metaclopramide third., Routine prochlorperazine (Compazine) tablet 10 mg 10 mg, Oral, EVERY 6 HOURS PRN, Starting on Thu10/25/19 at 2044, Until Thu10/26/19 at 1318, Nausea, Vomiting, If multiple antiemetics are ordered, use ondansetron first, prochlorperazine second, and metaclopramide third. PO Preferred. If patient unable to take PO, may give IV if ordered., Routine senna-docusate (Pericolace) 8.6-50 mg per tablet 2 tablet 2 tablet, Oral, 2 TIMES DAILY, First dose on Thu10/25/19 at 2100, Until Discontinued, Routine Given 10/26/2019 8:27 AM EST 2 tablets Given 10/25/2019 9:50 PM EST 2 tablets sodium chloride 0.9 % (flush) flush 5 mL 5 mL, Intravenous, 2 TIMES DAILY, First dose on Thu10/25/19 at 2200, Until Discontinued, Recovery (Recovery-Hospital Unit), Routine Given 10/26/2019 9:00 AM EST 5 mLs Given 10/25/2019 10:04 PM EST 5 mLs sodium chloride 0.9% infusion 1,000 mL, at 100 mL/hr, Intravenous, CONTINUOUS, Starting on Thu10/25/19 at 1745, Until Thu10/26/19 at 1318, Recovery (Recovery-Hospital Unit) Rate/Dose Verify 10/25/2019 8:00 PM EST 10 0 mL/hr Rate/Dose Verify 10/25/2019 7:00 PM EST 100 mL/ hr New Bag 10/25/2019 5:36 PM EST 1,000 mLs 100 mL/hr thrombin (bovine) (THROMBIN-JMI) solution ONCE PRN, Starting on Thu10/25/19 at 1354, Until Thu10/26/19 at 1318, Intra-Operative (Intra-Procedure) Given 10/25/2019 1:54 PM EST 5,000 Units 19- Surgical Site zolpidem (Ambien) tablet 10 mg 10 mg, Oral, NIGHTLY PRN, Starting on Thu10/25/19 at 2044, Until Thu10/26/19 at 1318, Sleep, Routine Given 10/25/2019 9:51 PM EST 10 mg documented in this encounter Active and Recently Administered Medications Times are shown in EST. Scheduled Medication Order 10/24/2019 10/25/2019 10/26/2019 ceFAZolin (ANCEF) 2g in dextrose 5% 100 mL (COMPLETED) 2 g, Intravenous, ONCE, 1 dose, On Thu10/25/19 at 1230, Administer over 30 Minutes, Indication for (Active or Suspected): Prophylaxis 1317 (Given - Provider: Herber Gordillo CRNA) ceFAZolin (ANCEF) 2g in dextrose 5% 100 mL (COMPLETED) 2 g, Intravenous, EVERY 8 HOURS, 3 doses, First dose on Thu10/25/19 at 1630, Last dose on Thu10/26/19 at 0830, Administer over 30 Minutes, Indication for (Active or Suspected): Prophylaxis 1729 (New Bag - Provider: Beryl Rincon RN)1759 (Stopped - Provider: Beryl Rincon RN) 0133 (New Bag - Provider: Freddie De La O RN)0203 (Stopped - Provider: Freddie De La O, SK[facility])0826 (New Bag - Provider: Carley Zimmerman, SK[facility])0856 (Stopped - Provider: Carley Zimmerman RN) febuxostat (Uloric) tablet 40 mg 40 mg, Oral, DAILY, First dose on Thu10/25/19 at 2030, Until Discontinued, Routine 2029 (Not Given - Provider: Freddie De La O RN - Reason: See comment - Comment: takes in am) 0830 (Given - Provider: Carley Zimmerman RN) gabapentin (Neurontin) capsule 300 mg 300 mg, Oral, 3 TIMES DAILY, First dose on Thu10/25/19 at 1745, Until Discontinued, Routine 1851 (Given - Provider: Eris Mejia RN)2150 (Given - Provider: Freddie De La O RN) 0827 (Given - Provider: Carley Zimmerman RN) losartan (Cozaar) tablet 50 mg 50 mg, Oral, DAILY, First dose on Thu10/25/19 at 1745, Until Discontinued, Routine 2150 (Not Given - Provider: Freddie De La O RN - Reason: See comment - Comment: took in am) 0826 (Given - Provider: Carley Zimmerman RN) methocarbamol (Robaxin) tablet 500 mg 500 mg, Oral, EVERY 6 HOURS, 8 doses, First dose on Thu10/25/19 at 2030, Last dose on Thu10/27/19 at 1430, STAT 2038 (Given - Provider: Beryl Rincon RN) 0230 (Not Given - Provider: Freddie De La O RN - Reason: See comment - Comment: Pt snoring comfortably)0554 (Given - Provider: Freddie De La O RN)0830 (Not Given - Provider: Carley Zimmerman RN - Reason: Contraindicated)1430 (Canceled Entry - Provider: Carley Zimmerman RN - Reason: Contraindicated) metoprolol succinate XL (Toprol-XL) tablet 50 mg 50 mg, Oral, DAILY, First dose on Thu10/25/19 at 1745, Until Discontinued, DO NOT CRUSH OR OPEN, Routine 2150 (Not Given - Provider: Freddie De La O RN - Reason: See comment - Comment: took in am) 0827 (Given - Provider: Carley Zimmerman RN) senna-docusate (Pericolace) 8.6-50 mg per tablet 2 tablet 2 tablet, Oral, 2 TIMES DAILY, First dose on Thu10/25/19 at 2100, Until Discontinued, Routine 2149 (Given - Provider: Freddie De La O RN) 0827 (Given - Provider: Carley Zimmerman RN) sodium chloride 0.9 % (flush) flush 5 mL 5 mL, Intravenous, 2 TIMES DAILY, First dose on Thu10/25/19 at 2200, Until Discontinued, Recovery (Recovery-Hospital Unit), Routine 2204 (Given - Provider: Freddie De La O RN) 0900 (Given - Provider: Carley Zimemrman, RN) Continuous Medication Order 10/24/2019 10/25/2019 10/26/2019 lactated ringers infusion (CANCELED) 1,000 mL, at 100 mL/hr, Intravenous, CONTINUOUS, Starting on Thu10/25/19 at 1215, Until Thu10/25/19 at 1613, Day of Surgery (Day of Procedure) 1156 (New Bag - Provider: Fara Clifford RN)1235 (New Bag - Provider: Herber Gordillo CRNA)1610 (Stopped - Provider: Herber Gordillo CRNA) sodium chloride 0.9% infusion 1,000 mL, at 100 mL/hr, Intravenous, CONTINUOUS, Starting on Thu10/25/19 at 1745, Until Thu10/26/19 at 1318, Recovery (Recovery-Hospital Unit) 1736 (New Bag - Provider: Lois Mckeon RN)1900 (Rate/Dose Verify - Provider: Beryl Rincon, SKY)2000 (Rate/Dose Verify - Provider: Beryl Rincon, SKY) PRN Medication Order 10/24/2019 10/25/2019 10/26/2019 acetaminophen (Tylenol) suppository 650 mg(Linked Group 1) 650 mg, Rectal, EVERY 4 HOURS PRN, Starting on Thu10/25/19 at 1614, Until Thu10/26/19 at 1318, Pain, Mild pain (1-3), Give per rectum (ND) if unable to take PO. Do not exceed 4000 mg acetaminophen per day., Routine 2149 (See Alternative - Provider: Freddie De La O RN) 0834 (See Alternative - Provider: Carley Zimmerman, SKY) acetaminophen (Tylenol) tablet 650 mg(Linked Group 1) 650 mg, Oral, EVERY 4 HOURS PRN, Starting on Thu10/25/19 at 1614, Until Thu10/26/19 at 1318, Pain, Mild pain (1-3), Do not exceed 4000 mg acetaminophen per day., Routine 2149 (Given - Provider: Freddie De La O RN) 0834 (Given - Provider: Carley Zimmerman RN) bacitracin injection (CANCELED) ONCE PRN, Starting on Thu10/25/19 at 1352, Until Thu10/26/19 at 1318, Intra-Operative (Intra-Procedure), Routine 1352 (Given - Provider: Constantine Salgado MD) bisacodyl (Dulcolax) suppository 10 mg 10 mg, Rectal, DAILY PRN, Starting on Thu10/25/19 at 2044, Until Thu10/26/19 at 1318, Constipation, Administer if needed per patient's routine or if no bowel movement within 48 hours to achieve: (1) One bowel movement every 48 hours, AND (2) Without straining. If multiple PRN bowel medications ordered, start with magnesium hydroxide, then bisacodyl. Multiple medications may be given concomitantly for constipation., Routine cyclobenzaprine (Flexeril) tablet 10 mg 10 mg, Oral, 3 TIMES DAILY PRN, Starting on Thu10/25/19 at 2044, Until Thu10/26/19 at 1318, Muscle spasms, Routine 1054 (Given - Provid er: Carley Zimmerman RN) gelatin adsorbable 100 (GELFOAM) sponge (CANCELED) ONCE PRN, Starting on Thu10/25/19 at 1352, Until Thu10/26/19 at 1318, Intra-Operative (Intra-Procedure), Routine 1352 (Given - Provider: Constantine Salgado MD) hydrALAZINE (APRESOLINE) injection 10 mg 10 mg, Intravenous, EVERY 1 HOUR PRN, Starting on Thu10/25/19 at 2044, Until Thu10/26/19 at 1318, High Blood Pressure, Target systolic blood pressure (SBP) less than 160 mmHg. Administer 10 mg IV . May repeat once in 15 minutes if SBP greater than target BP (caution if HR greater than 90). Use if labetalol ineffective after 1 hour., Routine HYDROmorphone (DILAUDID) injection 0.2-0.4 mg (CANCELED) 0.2-0.4 mg, Intravenous, EVERY 5 MIN PRN, Starting on Thu10/25/19 at 1611, Until Thu10/25/19 at 2109, Pain, Give 0.2 mg every 5 minutes PRN for mild to moderate pain (1-5) Give 0.4 mg every 5 minutes PRN for moderate to severe pain (6-10). Hold for respiratory rate less than 10 per minute. Maximum dose 4 mg over one hour. If multiple pain medications are ordered, start with hydromorphone or morphine and use fentanyl for breakthrough pain., PACU Recovery, Routine 1626 (Given - Provider: Beryl Rincon, SKY)1637 (Given - Provider: Beryl Rincon, RN)1655 (Given - Provider: Beryl Rincon, RN)1705 (Given - Provider: Beryl Rincon, RN)1720 (Given - Provider: Beryl Rincon, RN) labetalol (NORMODYNE,TRANDATE) injection 10-20 mg 10-20 mg, Intravenous, EVERY 1 HOUR PRN, Starting on Thu10/25/19 at 2044, Until Thu10/26/19 at 1318, High Blood Pressure, Target systolic blood pressure (SBP) less than 160 mmHg. Administer 10 mg over 2 minutes. May repeat every 15 minutes if SBP remains above goal. If inadequate effect with second 10 mg dose then increase dose to 20 mg for subsequent dosing every 15 minutes. Dose not to exceed 300 mg per day. Hold if pulse is less than 50 beats per minute., Routine lidocaine (XYLOCAINE) 10 mg/mL (1 %) injection 3 mg (COMPLETED) 3 mg (0.3 mL), Subcutaneous, ONCE PRN, 1 dose, Starting on Thu10/25/19 at 1145, Until Thu10/25/19 at 1156, for discomfort with PIV insertion, Day of Surgery (Day of Procedure), Routine 1156 (Given - Provider: Fara Clifford RN) lidocaine (XYLOCAINE) 10 mg/mL (1 %) injection 3 mg 3 mg (0.3 mL), Subcutaneous, ONCE PRN, 1 dose, Starting on Thu10/25/19 at 2140, Until Thu10/26/19 at 1318, for discomfort with PIV insertion, Recovery (Recovery-Hospital Unit), Routine lidocaine-EPINEPHrine 1 %-1:100,000 injection (CANCELED) ONCE PRN, Starting on Thu10/25/19 at 1342, Until Thu10/26/19 at 1318, Intra-Operative (Intra-Procedure), Routine 1342 (Given - Provider: Constantine Salgado MD) magnesium citrate oral liquid 300 mL(Linked Group 2) 300 mL, Oral, DAILY PRN, Starting on Thu10/25/19 at 2044, Until Thu10/26/19 at 1318, Constipation, Administer if no bowel movement within 48 hrs to achieve 1) one bowel movement at least every 48 hrs and 2) without straining. If multiple PRN bowel medications ordered, start with polyethylene glycol, then lactulose, then oral bisacodyl, then bisacodyl suppository, then magnesium citrate, then tap water enema. Multiple medications may be given concomitantly for constipation. May repeat times 1 in 4 hours., Routine magnesium citrate oral liquid 300 mL(Linked Group 2) 300 mL, Per G Tube, DAILY PRN, Starting on Thu10/25/19 at 2044, Until Thu10/26/19 at 1318, Constipation, Administer if no bowel movement within 48 hrs to achieve 1) one bowel movement at least every 48 hrs and 2) without straining. If multiple PRN bowel medications ordered, start with polyethylene glycol, then lactulose, then oral bisacodyl, then bisacodyl suppository, then magnesium citrate, then tap water enema. Multiple medications may be given concomitantly for constipation. May repeat times 1 in 4 hours., Routine magnesium hydroxide (Milk of Magnesia) (240 mg/mL) oral liquid 10 mL 10 mL, Oral, DAILY PRN, Starting on Thu10/25/19 at 2044, Until Thu10/26/19 at 1318, Constipation, Administer if needed per patient's routine or if no bowel movement within 48 hours to achieve: (1) One bowel movement every 48 hours, AND (2) Without straining. If multiple PRN bowel medications ordered, start with magnesium hydroxide, then bisacodyl. Multiple medications may be given concomitantly for constipation., Routine methylPREDNISolone acetate (DEPO-Medrol) injection (CANCELED) ONCE PRN, Starting on Thu10/25/19 at 1518, Until Thu10/26/19 at 1318, Intra-Operative (Intra-Procedure), Routine 1518 (Given - Provider: Denzel Madison MD - Comment: topical) ondansetron (ZOFRAN) injection 4-8 mg(Linked Group 3) 4-8 mg, Intravenous, EVERY 8 HOURS PRN, Starting on Thu10/25/19 at 2044, Until Thu10/26/19 at 1318, Nausea, If multiple antiemetics are ordered, use ondansetron first, prochlorperazine second, and metaclopramide third. Start with 4mg and if ineffective in 30 minutes, give an additional 4mg ondansetron (Zofran) tablet 4-8 mg(Linked Group 3) 4-8 mg, Oral, EVERY 8 HOURS PRN, Starting on Thu10/25/19 at 2044, Until Thu10/26/19 at 1318, Nausea, Vomiting, If multiple antiemetics are ordered, use ondansetron first, prochlorperazine second, and metaclopramide third. PO Preferred. If patient unable to take PO, may give IV if ordered. Start with 4mg and if ineffective in 45 minutes, give an additional 4mg, Routine oxyCODONE (Roxicodone) tablet 10 mg(Linked Group 4) 10 mg, Oral, EVERY 4 HOURS PRN, Starting on Thu10/25/19 at 1614, Until Thu10/26/19 at 1318, Pain, severe pain (7-10), Routine 164 (Given - Provider: Beryl Rincon RN)2150 (Given - Provider: Freddie De La O RN) 0554 (See Alternative - Provider: Freddie De La O RN)1054 (Given - Provider: Carley Zimmerman, SKY) oxyCODONE (Roxicodone) tablet 5 mg(Linked Group 4) 5 mg, Oral, EVERY 4 HOURS PRN, Starting on Thu10/25/19 at 1614, Until Thu10/26/19 at 1318, Pain, moderate pain (4-6), Routine 1642 (See Alternative - Provider: Beryl Rincon RN)215 (See Alternative - Provider: Freddie De La O RN) 0554 (Given - Provider: Freddie De La O RN)1054 (See Alternative - Provider: Carley Zimmerman RN) polyethylene glycol (Miralax) packet 17 g 17 g, Oral, DAILY PRN, Starting on Thu10/25/19 at 2044, Until Thu10/26/19 at 1318, Constipation, Administer if no bowel movement within 48 hours to achieve: (1) One bowel movement at least every 48 hours, AND (2) without straining. If multiple PRN bowel medications ordered, start with polyethylene glycol, then lactulose, then oral bisacodyl, then bisacodyl suppository, then magnesium citrate, then tap water enema. Multiple medications may be given concomitantly for constipation., Routine prochlorperazine (COMPAZINE) injection 10 mg(Linked Group 5) 10 mg, Intravenous, EVERY 6 HOURS PRN, Starting on Thu10/25/19 at 2044, Until Thu10/26/19 at 1318, Nausea, Vomiting, If multiple antiemetics are ordered, use ondansetron first, prochlorperazine second, and metaclopramide third., Routine prochlorperazine (Compazine) tablet 10 mg(Linked Group 5) 10 mg, Oral, EVERY 6 HOURS PRN, Starting on Thu10/25/19 at 2044, Until Thu10/26/19 at 1318, Nausea, Vomiting, If multiple antiemetics are ordered, use ondansetron first, prochlorperazine second, and metaclopramide third. PO Preferred. If patient unable to take PO, may give IV if ordered., Routine sodium chloride 0.9 % (flush) flush 5-20 mL 5-20 mL, Intravenous, EVERY 1 MIN PRN, Starting on Thu10/25/19 at 2140, Until Thu10/26/19 at 1318, flush, Flush pertains to all indwelling lines. Flush per protocol found in the job aid using the link provided on this medication record., Recovery (Recovery-Hospital Unit), Routine thrombin (bovine) (THROMBIN-JMI) solution (CANCELED) ONCE PRN, Starting on Thu10/25/19 at 1354, Until Thu10/26/19 at 1318, Intra-Operative (Intra-Procedure) 1354 (Given - Provider: Constantine Salgado MD) zolpidem (Ambien) tablet 10 mg 10 mg, Oral, NIGHTLY PRN, Starting on Thu10/25/19 at 2044, Until Thu10/26/19 at 1318, Sleep, Routine 2151 (Given - Provider: Freddie De La O RN) Linked Groups Order Group 1: acetaminophen (Tylenol) tablet 650 mgJump to med 650 mg, Oral, EVERY 4 HOURS PRN, Starting on Thu10/25/19 at 1614, Until Thu10/26/19 at 1318, Pain, Mild pain (1-3), Do not exceed 4000 mg acetaminophen per day., Routine Or acetaminophen (Tylenol) suppository 650 mgJump to med 650 mg, Rectal, EVERY 4 HOURS PRN, Starting on Thu10/25/19 at 1614, Until Thu10/26/19 at 1318, Pain, Mild pain (1-3), Give per rectum (ND) if unable to take PO. Do not exceed 4000 mg acetaminophen per day., Routine Group 2: magnesium citrate oral liquid 300 mLJump to med 300 mL, Oral, DAILY PRN, Starting on Thu10/25/19 at 2044, Until Thu10/26/19 at 1318, Constipation, Administer if no bowel movement within 48 hrs to achieve 1) one bowel movement at least every 48 hrs and 2) without straining. If multiple PRN bowel medications ordered, start with polyethylene glycol, then lactulose, then oral bisacodyl, then bisacodyl suppository, then magnesium citrate, then tap water enema. Multiple medications may be given concomitantly for constipation. May repeat times 1 in 4 hours., Routine Or magnesium citrate oral liquid 300 mLJump to med 300 mL, Per G Tube, DAILY PRN, Starting on Thu10/25/19 at 2044, Until Thu10/26/19 at 1318, Constipation, Administer if no bowel movement within 48 hrs to achieve 1) one bowel movement at least every 48 hrs and 2) without straining. If multiple PRN bowel medications ordered, start with polyethylene glycol, then lactulose, then oral bisacodyl, then bisacodyl suppository, then magnesium citrate, then tap water enema. Multiple medications may be given concomitantly for constipation. May repeat times 1 in 4 hours., Routine Group 3: ondansetron (Zofran) tablet 4-8 mgJump to med 4-8 mg, Oral, EVERY 8 HOURS PRN, Starting on Thu10/25/19 at 2044, Until Thu10/26/19 at 1318, Nausea, Vomiting, If multiple antiemetics are ordered, use ondansetron first, prochlorperazine second, and metaclopramide third. PO Preferred. If patient unable to take PO, may give IV if ordered. Start with 4mg and if ineffective in 45 minutes, give an additional 4mg, Routine Or ondansetron (ZOFRAN) injection 4-8 mgJump to med 4-8 mg, Intravenous, EVERY 8 HOURS PRN, Starting on Thu10/25/19 at 2044, Until Thu10/26/19 at 1318, Nausea, If multiple antiemetics are ordered, use ondansetron first, prochlorperazine second, and metaclopramide third. Start with 4mg and if ineffective in 30 minutes, give an additional 4mg Group 4: oxyCODONE (Roxicodone) tablet 5 mgJump to med 5 mg, Oral, EVERY 4 HOURS PRN, Starting on Thu10/25/19 at 1614, Until Thu10/26/19 at 1318, Pain, moderate pain (4-6), Routine Or oxyCODONE (Roxicodone) tablet 10 mgJump to med 10 mg, Oral, EVERY 4 HOURS PRN, Starting on Thu10/25/19 at 1614, Until Thu10/26/19 at 1318, Pain, severe pain (7-10), Routine Group 5: prochlorperazine (Compazine) tablet 10 mgJump to med 10 mg, Oral, EVERY 6 HOURS PRN, Starting on Thu10/25/19 at 2044, Until Thu10/26/19 at 1318, Nausea, Vomiting, If multiple antiemetics are ordered, use ondansetron first, prochlorperazine second, and metaclopramide third. PO Preferred. If patient unable to take PO, may give IV if ordered., Routine Or prochlorperazine (COMPAZINE) injection 10 mgJump to med 10 mg, Intravenous, EVERY 6 HOURS PRN, Starting on Thu10/25/19 at 2044, Until Thu10/26/19 at 1318, Nausea, Vomiting, If multiple antiemetics are ordered, use ondansetron first, prochlorperazine second, and metaclopramide third., Routine documented in this encounter Care Teams Modeling Agency Manager Relationship Specialty Start Date End Date Alek Esparza MD [address] [place] [phone] PCP - General 09/03/10 04/05/23 documented as of this encounter
--- OUTSIDE RECORDS SUMMARY | 2024-08-29 14:14 | XMS_ITS | Encounter Summary ---
Author Organization [facility] [place] [address] Care Team Providers Care Gis Consultant Name Role Phone Alek Esparza MD Primary Care Provider [phone] Reason for Visit * Reason Onset Date Comments Results 01/26/2018 Encounter Details Date Type Department Care Team (Late st Contact Info) Description 01/26/2018 Telephone [place] [phone] Tequila Walker APRN [facility] [place] [address] Results Social History Tobacco Use Types Packs/Day Years [...] encounter Miscellaneous Notes * Telephone Encounter - Tequila Walker APRN - 01/26/2018 8:33 AM EDT Discussed stable uric acid level. No changes to 80 mg uloric per day, per pt his uric acid level went up on 40 mg per day dose. TEQUILA WALKER APRN documented in this encounter Plan of Treatment Not on file documented as of this encounter Visit Diagnoses Not on filedocumented in this encounter Care Teams Gis Consultant Relationship Specialty Start Date End Date Alek Esparza MD [address] [place] [phone] PCP - General 09/03/10 04/05/23 documented as of this encounter
--- OUTSIDE RECORDS SUMMARY | 2024-08-29 14:14 | XMS_ITS | Encounter Summary ---
Author Organization [facility] Address [facility] [place] [address] Care Team Providers Care Service Station Cashier Name Role Phone Alek Esparza MD Primary Care Provider [phone] Encounter Details Date Type Department Care Team (Late st Contact Info) Description 02/20/2020 Telephone [place] [phone] Tiffanie Williamson Social History Tobacco Use Types Packs/Day Years [...] encounter Miscellaneous Notes * Telephone Encounter - Tiffanie Williamson - 02/20/2020 1:55 PM EDT Patient called in today stating he is having increased left hip pain, and he is having numbness andtingling from his left buttocks all the way down until his foot. I discussed heating, stretching, and rest to alleviate any nerve pain he is having. He states he has deep groin pain, which is associated with his osteoarthritis. He is on the schedule for 04/12/2020 for a left total hip replacement with Dr. Lay. I let him know that unfortunately there is not much we can do in this time, as we cannotdo an injection, or push up the surgery unless somebody else cancels. He verbalized understanding, states he has been using crutches and will continue to do so. He will reach out to his PCP if he needs or desires more narcotic pain medication, as he has a chronic opioid consent with their office. All Enoc's questions were answered at this time, he is on the cancellation list for surgery and willcall us back with any other questions or concerns he may have. documented in this encounter Plan of Treatment Not on file documented as of this encounter Visit Diagnoses Not on filedocumented in this encounter Care Teams Service Station Cashier Relationship Specialty Start Date End Date Alek Esparza MD [address] [place] [phone] PCP - General 09/03/10 04/05/23 documented as of this encounter
--- OUTSIDE RECORDS SUMMARY | 2024-08-29 14:14 | XMS_ITS | Encounter Summary ---
Author [facility] [place] [address] Care Team Providers Care Crown Pouncer Name Role Phone Alek Esparza MD Primary Care Provider [phone] Encounter Details Date Type Department Care Team ([facility] st Contact Info) Description 04/06/2020 [place]phone [place] [phone] Marion Eddy RN Social History Tobacco Use Types Packs/Day [...] encounter Miscellaneous Notes * Telephone Encounter - Marion Eddy RN - 04/06/2020 12:05 PM EDT Emily from PCP's office is returning a call to Veronica today. Diesel Engine I Pipe Fitter will forward message. Callback number is: [phone] option 3. documented in this encounter Plan of Treatment Not on file documented as of this encounter Visit Diagnoses Not on filedocumented in this encounter Care Teams Crown Pouncer Relationship Specialty Start Date End Date Alek Esparza MD [address] [place] [phone] PCP - General 11/23/10 6/25/23 documented as of this encounter
--- OUTSIDE RECORDS SUMMARY | 2024-08-29 14:14 | XMS_ITS | Encounter Summary ---
[facility] [place] [id number] Care Team Providers Care Floral Specialist Name Role Phone Alek Esparza MD Primary Care Provider [phone] Reason for Visit * Reason Comments Establish Care L Hip Pain * Consultation (Urgent) - Closed Specialty Diagnoses / Procedures Referred By Contac t Referred To Contact Orthopaedics Diagnoses Pain in left hip Denzel Madison MD [facility] [place] [address] [facility] [address] [place] [phone] Referral ID Status Reason Start Date Expiration Date V isits Requested Visits Authorized [id number] Closed Consult, Test & Treat 12/07/2019 12/06/2020 1 1 Encounter Details Date Type Department Care Team (Late st Contact Info) Description 12/14/2019 10:00 AM EST Office [place] [phone] Zhanna Lay MD [facility] [place] [address] Primary osteoarthritis of left hip; Pain of [...] Sign Reading Time Taken Comments Blood Pressure 124/83 12/14/2019 9:52 AM EST Pulse 90 12/14/2019 9:52 AM EST Temperature - - Respiratory Rate - - Oxygen Saturation - - Inhaled Oxygen Concentration - - Weight 111.6 kg (246 lb 0.5 oz) 12/14/2019 9:52 AM EST last taken 11/23/19 Height 180.3 cm (5' 10.98) 12/14/2019 9:52 AM EST Body Mass Index 34.33 12/14/2019 9:52 AM EST documented in this encounter Progress Notes * Maurice Renee MD - 12/14/2019 10:00 AM EST Images from the original note were not included. Department of Orthopaedics Division of Adult Joint Reconstructive Surgery ARTHROPLASTY HISTORY/PREVIOUS HIP SURGERY: 1. None Subjective: Enoc Esteban is a 59 y.o. male who presents with Left hip pain. Onset of the symptoms was several years ago. There was not an inciting event. He has had prior hip problems. Enoc reports the hip pain is groin, buttock and lateral. He does report groin pain, does endorse thigh pain and does feel as if he walks with a limp. There is little radiation of the pain thigh. Of note, patient with recent L spine decompression surgery w/NSGY in Oct 2019. He previously had sciatica type pain with radiating sx down LLE. Some of his low back pain and radiating pain has improved with recent procedure, but he still struggles with significant Left groin/hip pain. Some numbness Left foot. Aggravating symptoms include: any weight bearing, going up and down stairs, kneeling, rising after sitting, running, squatting, standing and walking. He feels that his hip pain is keeping him from working and daily activities. Enoc has pain at night.. He can weight bear on the left leg and does use assistive devices. He climb stairs and does use the railing. He does have difficulty putting on his shoes and socks. He can sit comfortably in a chair for 15 minutes. Enoc has tried physical therapy. He has injections into the joint: Cortisone in past of L hip which provided relief for approx 1 week. Use of NSAIDs/Pain meds: NSAID used but not effective He does not reports problems with the contralateral hip, does not report problems with the ipsilateral knee and does have a history of spine or back issues REVIEW OF SYSTEMS: Enoc denies fevers, chills, night sweats, nausea, or vomiting. He does not endorse a history of DVT/PE or clotting disorder. AFib on Eliquis No smoking QUESTIONNAIRE RESPONSES: General Health, Prior Treatments, PreExisting Condition, Health Habits, About You 12/14/2019 PROMIS-10 General Health Fair PROMIS-10 Quality of Life Fair PROMIS-10 Physical Health Fair PROMIS-10 Mental Health Fair PROMIS-10 Social Activity Fair PROMIS-10 Everyday Activities A little PROMIS-10 Pain 8 PROMIS-10 Fatigue Mild PROMIS-10 Social Roles Fair PROMIS-10 Anxious or Depressed Rarely PROMIS PHYSICAL SCORE (range 16-68) - PROMIS MENTAL SCORE (range 21-68) - Treatments Tried Walking aids (e.g.cane, walker) HOOS JR Scores 39.9 Alzheimers or dementia No HIV/AIDS No Pain in more than one joint in legs Yes Weight (lbs) 235 Height (feet) 5 feet Height (Inches) 10 BMI 33.71 (Obese) Ever used tobacco products No Ever used alcoholic beverages Yes Alcohol frequency Daily or almost daily WHO - Alcohol Advice 6 (You are at risk of health and other problems from your current pattern of alcohol use.) Live Alone No Marital situation Living with significant other Schooling High school graduate or GED Combined Household Income $35,000 to less than $50,000 # People Supported 2 Sierra [place]an, , Yes, other Sierra Leonean// Race White Health Literacy Somewhat Currently working No Not working because: Not working due to disability [facility] Response 12/14/2019 HOOS JR Scores 39.9 Spine [facility] Response 12/14/2019 HOOS JR Scores 39.9 ALLERGIES Allergies Allergen Reactions ??? Allopurinol Rash SOCIAL HISTORY: reports that he has never smoked. He has never used smokeless tobacco. He reports current alcohol use. He reports current drug use. Drug: Marijuana. SIGNIFICANT MEDICAL COMORBIDITIES: Patient Active Problem List Diagnosis Code ??? HTN (hypertension) I10 ??? Tophaceous gout M1A.9XX1 ??? Hyperuricemia E79.0 ??? Mild vitamin D deficiency E55.9 ??? Asthma J45.909 ??? TYRON (obstructive sleep apnea) G47.33 ??? Fracture of left small finger, proximal, closed [id number] ??? Pain in right elbow M25.521 ??? History of elbow surgery, right Dr. Howard, 10/16/2014 exc prox ulna entesophyte Z98.890 ??? Radiculopathy of cervical region M54.12 ??? Atrial fibrillation I48.91 ??? Lumbar radiculopathy M54.16 Objective: BP 124/83 Pulse 90 Ht 180.3 cm (5' 10.98) Wt 111.6 kg (246 lb 0.5 oz) Comment: last taken 11/23/19 BMI 34.33 kg/m?? General : alert, appears stated age and cooperative Gait: Antalgic. The patient can bear weight on the injured extremity. I have made the following determinations: Hip Exam: Left Prior surgery on this joint:No Leg Length: Longer leg: equal Limb Length discrepancy: 0cm Motion: Flexion contracture: 0 Total degrees of Flexion: 90 Total degrees of Abduction: 45 Total degrees of Ext Rotation: 25 Total degrees of Internal Rotation: 5 Gait Abnormality: Antalgic Radiographic evidence of joint damage: [0= normal; 1=minimal ; 2= some osteophytes , some narrowing ; 3= moderate osteophytes, significantnarrowing, mild deformity; 4= large osteophytes, marked narrowing, obvious deformity]: 4= large ostophytes, marked narrowing, obvious deformity CAM lesion Skin Integrity: Normal Pulses Palpable: Left PT: Yes Left DP: Yes Motor/Sensory: Left Distal Motor: Normal Distal Sensory: Abnormal - numbness of foot (intermittent vague neuro sx LLE) Hip Abductors: 5 Trendelenburg test: positive intermittent Imaging: X-ray left: shows DJD changes, likely chronic CAM lesion Assessment: Mr. Esteban is a 59 y.o. year old male with severe osteoarthritis of his left hip. Plan: Plan for L SLIM w/Dr. Lay Natural history and expected course discussed. Questions answered. We reviewed the multiple treatment options available to him for this condition and the hurtful but non-harmful nature of arthritis. Both operative and nonoperative options were discussed as well as the pure elective nature of each. I reviewed the concept of the arthritis ladder with its step-johansen approach, rising in invasiveness based on either previous response or symptom severity/impact on lifestyle. Considering the apparent impact on his lifestyle and having explored non- operative treatment options, I indicated that in my opinion total hip arthroplasty would be a reasonable option to attempt to restore a more normal, pain-free level of function. I discussed how the procedure is performed and all of their questions were answered. I discussed the risks of the procedure and the potentially devastating consequences of complications. Mr. Esteban expressed a desire to pursue total hip arthroplasty. Potential barriers to total joint arthroplasty: -BMI > 40: No -Active Tobacco use: No -Diabetes with hemoglobin A1C > 7.5: No He will seek out the needed medical clearance and undergo the needed testing to ensure medical suitability for the proposed surgical intervention. I will plan to meet him again in the weeks prior to an anticipated potential surgical date, to review his medical consult and testing, answer any and all questions, and formulate our definitive decisions regarding proceeding with surgery (or not) at that time only. Maurice Renee MD * Zhanna Lay MD - 12/14/2019 10:00 AM EST I performed a history and physical examination of the patient and discussed the management plan with Abdias Renee MD. I also discussed the different treatment options, as well as the risks and benefits of each with the patient and questions were answered. I reviewed the note and agree with the documented findings and plan of care. ?? Zhanna Lay MD 12/16/2019 documented in this encounter Miscellaneous Notes * Addendum Note - Zhanna Lay MD - 12/14/2019 10:00 AM ESTAddended by: ZHANNA LAY on: 12/14/2019 03:06 PM Modules accepted: Elier, SmartLinda documented in this encounter Plan of Treatment Not on file documented as of this encounter Procedures Procedure Name Priority Date/Time Associated Diagnosis Comments TOTAL HIP ARTHROPLASTY, ANTERIOR APPROACH Routine 12/14/2019 3:04 PM EST documented in this encounter Results * XR [...] below. ? Electronically signed by: Marti Acosta [facility] ([phone]), at 05/09/2020 2:24 PM Narrative 05/09/2020 2:24 [...] this report, please contact the number below. Zhanna Lay MD IMG DX ORDERABLES * APTT (03/23/2020 2:29 PM EDT) Partial Thromboplastin Time 36 25 - 37 sec [facility] Comment: The PTT is NOT appropriate for heparin monitoring. Use the Anti-Xa level for heparin monitoring (HEP UFH) or LMWH monitoring (HEP LMW). A PTT less than 37 seconds generally indicates adequate hemostasis. Blood specimen (specimen) 03/23/2020 2:29 PM EDT 03/23/2020 2:36 PM EDT Narrative Resulting Agency Comment Spec In Lab Zhanna Lay MD HEMATOLOGY ORDERABLE S [facility] [place] [address] * Prothrombin Time (03/23/2020 2:29 PM EDT) Prothrombin Time 12.3 9.4 - 12.5 sec [facility] International Normalization Ratio 1.1 [facility] Comment: An INR <2.0 indicates [...] Narrative Resulting Agency Comment Spec In Lab Zhanna Lay MD HEMATOLOGY ORDERABLE S [facility] [place] [address] * (ABNORMAL) Basic Metabolic Panel (non-fasting) (03/23/2020 2:29 PM EDT) Pathologist [facility] Glucose 123 65 - 199 mg/dL [facility] Comment:Diabetes: >=200 mg/d L plus symptoms Blood Urea Nitrogen 15 10 - 20 mg/dL [facility] Creatinine 1.37 0.80 - 1.50 mg/dL [facility] Sodium 138 135 - 145 mmol/L [facility] Potassium 4.6 3.5 - 5.0 mmol/L [facility] Comment: Please note: ??Patients with WBC >100,000 may have falsely elevated Potassium levels. ??For accurate Potassium quantification in these patients send serum separator tube (gold top) for subsequent determinations. ??Contact the Clinical Chemistry Laboratory if there are any questions. Chloride 102 98 - 107 mmol/L [facility] Carbon Dioxide 26 22 - 31 mmol/L [facility] Anion Gap 10 5 - 15 mmol/L [facility] Calcium 9.4 8.5 - 10.5 mg/dL [facility] Est Glomerular Filtration Rate 56(L) >=60 mL/min/1. 73 m?? [facility] Comment: The eGFR was calculated using the CKD-EPI equation. As with all creatinine based estimates of kidney function, eGFR values calculated with the CKD-EPI equation are not accurate in patients with acute kidney failure, extremes of body mass or the acutely ill. http://[employer]/DHnkf eGFR 65 >=60 mL/min/1. 73 m?? [facility] Comment: The eGFR was calculated using the CKD-EPI equation. As with all creatinine based estimates of kidney function, eGFR values calculated with the CKD-EPI equation are not accurate in patients with acute kidney failure, extremes of body mass or the acutely ill. http://[employer]/[facility] MOOREnkf Blood specimen (specimen) 03/23/2020 2:29 PM EDT 03/23/2020 2:36 PM EDT Narrative Resulting Agency Comment Spec In Lab Zhanna Lay MD CHEMISTRY ORDERABLES [facility] [place] [address] documented in this encounter Visit Diagnoses Diagnosis Primary osteoarthritis of left hip Primary localized osteoarthrosis, pelvic region and thigh Pain of left lower extremity Primary osteoarthritis of left hip Primary localized osteoarthrosis, pelvic region and thigh Pain of left lower extremity documented in this encounter Care Teams Floral Specialist Relationship Specialty Start Date End Date Alek Esparza MD [address] [place] [phone] PCP - General 09/03/10 04/05/23 documented as of this encounter
--- OUTSIDE RECORDS SUMMARY | 2024-08-29 14:14 | XMS_ITS | Encounter Summary ---
Author Organization [facility] Address [facility] [place] [address] Care Team Providers Care Document Examiner Name Role Phone Alek Esparza MD Primary Care Provider [phone] Encounter Details Date Type Department Care Team (Late st Contact Info) Description 07/26/2018 2:00 PM EDT Office [place] [phone] Teofilo Cotton MD [facility] [place] [address] Gout, unspecified cause, unspecified chronicity, unspecified site Social History Tobacco Use Types Packs/Day Years [...] Sign Reading Time Taken Comments Blood Pressure 122/84 07/26/2018 1:52 PM EDT Pulse 90 07/26/2018 1:52 PM EDT Temperature 37 ??C (98.6 ??F) 07/26/2018 1:52 PM EDT Respiratory Rate - - Oxygen Saturation 98% 07/26/2018 1:52 PM EDT Inhaled Oxygen Concentration - - Weight 105.2 kg (232 lb) 07/26/2018 1:52 PM EDT Height 180.3 cm (5' 11) 07/26/2018 1:52 PM EDT Body Mass Index 32.36 07/26/2018 1:52 PM EDT documented in this encounter Patient Instructions * Patient Instructions* Teofilo Cotton MD - 07/26/2018 2:00 PM EDT 1, Try uloric tablets cut in half with labs in 1 month at outside hospital 2. Future prescriptions through PCP based on labs in August 2018 documented in this encounter Progress Notes * Teofilo Cotton MD - 07/26/2018 2:00 PM EDT Rheumatology Outpatient Follow-up Note Pt of Dr. Cam Last OV Jul 2017 REASON FOR VISIT: Follow up for tophaceous gout ?? INTERVAL HISTORY: ?? 58-year-old male who returns for a follow up of tophaceous gout. Is back on the uloric 80 mg per day. Uric acid in Jul was < 5. Allopurinol causes a rash. Joints are good, no flares and rarely needs prednisone. Since his last OV he went into a-fib and is now eliquis and BB. 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 Thought he was having a stroke, L side of his body was briefly paralyzed,has had full recovery. Last seen 6 months ago by . On Uloric 80 mg/d 3. Has tried to go down Doing great. No flares.. Concerned about costs. Works at [employer] Current Outpatient Medications: ??? ELIQUIS 5 mg Tablet, TAKE ONE TABLET BY MOUTH TWICE A DAY, Disp: , Rfl: 6 ??? metoprolol succinate (TOPROL-XL) 25 mg Tablet Sustained Release 24 hr, TAKE ONE TABLET BY MOUTHEVERY DAY, Disp: , Rfl: 6 ??? ULORIC 80 mg Tablet, Take 1 tablet by mouth daily, Disp: 90 tablet, Rfl: 4 ??? VIAGRA 100 mg Tablet, TAKE 1 TABLET BY MOUTH DAILY NEEDED MAX OF 1 TABLET IN 24 HOURS, Disp:, Rfl: 12 ??? losartan (COZAAR) 50 mg Tablet, Take 1 tablet by mouth daily., Disp: 30 tablet, Rfl: 5 ??? HYDROcodone-acetaminophen (NORCO) 10-325 mg Tablet, as needed., Disp: , Rfl: ??? zolpidem (AMBIEN) 10 mg tablet, Take 10 mg by mouth nightly as needed., Disp: , Rfl: ??? albuterol-ipratropium (COMBIVENT) 18-103 mcg/Actuation inhaler, , Disp: , Rfl: ?? PAST MEDICAL HISTORY: Hypertension ?? Tophaceous gout ?? Hyperuricemia ?? Moderate vitamin D deficiency ?? S/p excision of right olecranon bursa (10/2014) ?? S/p excision of right proximal ulnar enthesophyte (10/2014) ?? S/p repair of right distal triceps tendon (10/2014) ?? Asthma ?? Lafleur's lung ?? Obstructive sleep apnea ?? S/p midshaft fracture of left 5th proximal phalanx, s/p closed reduction and percutaneous pinning (01/2013) ?? S/p bilateral carpal tunnel ?? S/p right femur fracture, s/p ORIF ?? S/p ankle fracture ?? S/p anterior cervical fusion with anterior cervical diskectomy ?? A-fib ?? ALLERGIES: ?? Allopurinol-rash ?? SOCIAL HISTORY: ?? Alcohol: Regular beer use on weekend. Pt denied any use of tobacco products. Marijuana use. He us with the same female partner times many years, with two children. He is currently living with his partner. 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 ?? FAMILY HISTORY: ?? Mother - Unknown, alive at the age of 66. ?? Father - Prostate cancer, alive at the age of 68. ? ROS: No infections or fevers No rashes No CP No SOB or cough PHYSICAL EXAMINATION: Blood pressure 122/84, pulse 90, temperature 37 ??C (98.6 ??F), temperature source Oral, height 180.3 cm (5' 11), weight 105.2 kg (232 lb), SpO2 98 %. General - Alert, co-operative, no apparent distress, oriented x 3. ?? HEENT - Conjunctiva pink and non-injected, no sclerae icterus or malar rash. ? Joints - no joint swelling, redness, warmth or tenderness. No deformities. Skin - Smooth and intact, no rash, no tophus deposition. ?? Psych - Normal affect. Neuro - sensory grossly intact? IMPRESSION and PLAN: ?? 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 No tophi on exam today. Will get uric acid level today and try to reduce uloric to 40 mg/d cutting tablets in half with uric acid check next month Subsequent followup through PCP including uloric prescriptions. Labs in Oct were stable. Level 4 f/u TEOFILO COTTON MD ? documented in this encounter Miscellaneous Notes * Addendum Note - Teofilo Cotton MD - 07/26/2018 2:00 PM EDTAddended by: TEOFILO COTTON on: 07/26/2018 02:41 PM Modules accepted: Orders documented in this encounter Plan of Treatment Not on file documented as of this encounter Visit Diagnoses Diagnosis Gout, unspecified cause, unspecified chronicity, unspecified site documented in this encounter Care Teams Document Examiner Relationship Specialty Start Date End Date Alek Esparza MD [address] [place] [phone] PCP - General 09/03/10 04/05/23 documented as of this encounter
--- OUTSIDE RECORDS SUMMARY | 2024-08-29 14:14 | XMS_ITS | Encounter Summary ---
Author Organization [facility] Address [facility] [place] [address] Care Team Providers Care Docket Specialist Name Role Phone Alek Esparza MD Primary Care Provider [phone] Reason for Visit * Reason Onset Date Comments Pre Procedure Call 12/15/2019 Encounter Details Date Type Department Care Team (Late st Contact Info) Description 12/15/2019 Telephone [place] [phone] Isidoro Lay MD [facility] [place] [address] Pre Procedure Call Social History Tobacco Use Types Packs/Day Years [...] encounter Miscellaneous Notes * Telephone Encounter - Leona Dhillon - 12/15/2019 8:18 AM EST Called patient to schedule surgery. Holding a spot for him to have hip surgery with Dr. Lay on 02/16/20. Patient is upset that the date is so far out as he is worried he is going to lose his job and health insurance. Offered patient to put him on the standby list for anyone that cancels off of Dr. Lay's schedule that we can move him up. Patient is frustrated and is going to call us back to let us know if he wants to move to another provider that can get him in sooner. Sending a message to Dr. Lay to let him know of the situation. documented in this encounter Plan of Treatment Not on file documented as of this encounter Visit Diagnoses Not on filedocumented in this encounter Care Teams Docket Specialist Relationship Specialty Start Date End Date Alek Esparza MD [address] [place] [phone] PCP - General 09/03/10 04/05/23 documented as of this encounter
--- OUTSIDE RECORDS SUMMARY | 2024-08-29 14:14 | XMS_ITS | Encounter Summary ---
Author Organization [facility] [place] [address] Care Team Providers Care Pocket Builder Name Role Phone Alek Esparza MD Primary Care Provider [phone] Reason for Visit * Auth/Cert Specialty Diagnoses / Procedures Referred By Contac t Referred To Contact Diagnoses Lumbar disc herniation with radiculopathy Procedures PRO LAMINOTOMY, LUMBAR DISK, 1 INTRSP PRO MICROSURG TECHNIQUES, REQ OPER MICROSCOPE EMERGENCY IPI Referral ID Status Reason Start Date Expiration Date Visits Re quested Visits Authorized [id number] 1 1 Encounter Details Date Type Department Care Team (Latest Contact Info) Description 10/25/2019 11:30 AM EST - 10/26/2019 11:17 AM EST Hospital Encounter 2 [place] [address] Denzel Madison MD [facility] [place] [address] Discharge Disposition: Home Social History Tobacco Use [...] Sign Reading Time Taken Comments Blood Pressure 134/86 10/26/2019 8:03 AM EST Pulse 80 10/25/2019 8:30 PM EST Temperature 37 ??C (98.6 ??F) 10/26/2019 8:03 AM EST Respiratory Rate 18 10/26/2019 8:03 AM EST Oxygen Saturation 97% 10/26/2019 8:03 AM EST Inhaled Oxygen Concentration - - [...] HYDROcodone-acetaminophen 10-325 mg Tab Commonly known as: Eastern as needed. Refills: 0 ibuprofen 800 mg [...] retention Constipation not relieved by diet and/or jckc-feo-zfohpgb stool softeners and laxatives Nausea/vomiting (upset stomach) [...] tobacco dependence clinics in these locations: ??? [facility]: [place] ??? [facility] [place], [place] Other Programs at [facility] in [place] ??? Living Free of Tobacco support group: For anyone who has quit tobacco or is considering quitting tobacco. [facility] Health Education Center, Level 4, [place] [facility] 3:30 to 4:30 p.m. on the thursday of every month. Other Programs in the Area ??? [facility] in [place] One-on-one counseling, hypnosis. Ros Hwang ??? [facility] in [place], [place] One-on-one counseling, QuitLine, classes. Beryl Chaudhary ??? [facility]: One-on-one counseling. All ages and incomes eligible. Lena Guerrero [facility]: Classes & support group. Filiberto Lopez ??? [facility] in [place], [place] One-on-one counseling, QuitLine, classes, hypnosis therapy. Rufina Duke Information about Quitting Smoking and Tobacco See our Quitting Smoking - Information and Materials page ([email or web address]/medical- information/smoking/information_on_quitting_smoking.html) for educational information about quitting smoking, downloadable smoking cessation materials, podcasts, websites, helplines, and more. FOLLOW UP PLAN: 1) Please follow up in the Neurosurgery Clinic in 4-[address] Madison. Please call the Neurosurgery Office at [phone] if you do not receive a scheduled appointment within two weeks. HOW TO REACH NEUROSURGERY Contact your Doctor Office Hours: Thursday through Thursday, 8am-5pm. Call . On weekends or after office hours: Call [phone] and ask the gear tooth lapping machine operator to page the Neurosurgery Resident friction saw operator. IMPORTANT PHONE NUMBERS: Outpatient Nurse (Arely Roblero) Inpatient Nurses Neurosurgical Resident On-Call (after 5pm or before 8am) Neurosurgery offices (Thursday through Thursday between 8am-5pm): Adult Neurosurgery Dr. Tariq Perdue Pediatric Neurosurgery Dr. Alek Cisse Mid-level practitioners Alek Arellano, Physician Senior Technical Editor Eric Foster, Physician Senior Technical Editor Svetlana Bergman, Nurse Practitioner Louann Driscoll, Nurse Practitioner * Your surgeon may not be banquet server on call, so be ready to tell about yourself and your surgery when you call, especially after hours or on the weekend. Salud Martinez APRN 10/26/2019 documented in this encounter Discharge Instructions * Patient Instructions* Salud Martinez, FOLLOW UP MANAGER - 10/26/2019 8:53 AM EST SPINAL SURGERY [...] retention Constipation not relieved by diet and/or ynmk-mht-drrykyk stool softeners and laxatives Nausea/vomiting (upset stomach) [...] tobacco dependence clinics in these locations: ??? [facility]: [place] ??? [facility] [place], [place] Other Programs at [facility] in [place] ??? Living Free of Tobacco support group: For anyone who has quit tobacco or is considering quitting tobacco. [facility] Health Education Center, Level 4, [place] 3:30 to 4:30 p.m. on the thursday of every month. Other Programs in the Area ??? [facility] in [place] One-on-one counseling, hypnosis. Ros Hwang ??? [facility] in [place], [place] One-on-one counseling, QuitLine, classes. Beryl Chaudhary ??? [facility]: One-on-one counseling. All ages and incomes eligible. Lena Guerrero [facility]: Classes & support group. Filiberto Lopez ??? [facility] in [place], [place] One-on-one counseling, QuitLine, classes, hypnosis therapy. Rufina Duke Information about Quitting Smoking and Tobacco See our Quitting Smoking - Information and Materials page (http://[email or web address] [facility] [email or web address]- information/smoking/information_on_quitting_smoking.html) for educational information about quitting smoking, downloadable smoking cessation materials, podcasts, websites, helplines, and more. FOLLOW UP PLAN: 1) Please follow up in the Neurosurgery Clinic in 4-[address] Madison. Please call the Neurosurgery Office at [phone] if you do not receive a scheduled [...] Admission order reviewed. Primary Insurance on file: [employer] [place] Secondary Insurance on file: N/A Primary care provider on file: Alek Esparza MD [phone] Advance Directive on file and Code Status: <no information>, Full Code Patient???s Functional Status:independent- LE weakness Living Situation:Lives home; denies [address] [facility] [address] Supports:family, frineds Assessment: Patient with no apparent RNCM/SW needs at this time. No housing, transportation, insurance, resources concerns identified at this time. Supports in place to achieve a safe post-hospital transition. No identified barriers to accessing necessary care and/or follow-up after discharge. Plan: Patient to d/c to home via private vehicle when medically ready. dry curer/Basket Grader will continue to follow patient???s progress and remain available if situation changes for coordination of care, psychosocial support and/or discharge planning. Leslie Drew RN Pager [phone] * Svetlana Bergman APRN - 10/26/2019 3:22 [...] is for discharge home today PLEASE PAGE [phone] WITH QUESTIONS Active Hospital Problems Diagnosis ??? [...] in NAD Awake, A&Ox3 CV: AFib on cream gatherer Motor: RUE/LUE 5/5 RLE 5/5 LLE 4+/5 [...] stop MIVF once taking PO PLEASE PAGE [phone] WITH QUESTIONS Active Hospital Problems Diagnosis ??? [...] for pt. 1830 pt eating dinner. 1910 MD at bedside 1999 unable to give ordered meds. sent message to pharmacy to sent meds to pacu for pt. Awaiting arrival documented in this encounter H&P Notes * Constantine Salgado MD - 10/25/2019 12:02 PM EST Neurosurgery Pre-operative H&P 10/25/2019 Enoc Esteban [id number] CC: L L4-5 HNP HPI: 59 [...] MD at [facility] ??? PRO REMOVAL OF ELBOW BURSA Right 10/16/2014 EXCISION OF OLECRANON BURSA performed by Anupama Howard MD at [facility] Medications: No current facility-administered medications on [...] on phone: None Gets together: None Attends judaism service: None Active member of club or [...] Madison MD - 10/25/2019 11:17 PM EST [facility] Operative Note Patient Name: Enoc Esteban : [id number] MR#: [id number] Case Date: 10/25/2019 Surgeon: Surgeon(s) and Role: [...] Operative Note Patient Name: Enoc Esteban : [id number] MR#: [id number] Case Date: 10/25/2019 Surgeon: Surgeon(s) and Role: [...] PM EST Microsurg Techniques, Req Oper Microscope ([id number]) 10/25/2019 12:34 PM EST Lumbar disc herniation with radiculopathy Laminotomy, Lumbar Disk, 1 Intrsp ([id number]) 10/25/2019 12:34 PM EST Lumbar disc herniation with radiculopathy documented in this encounter Results * XR Fluoro No Rad <1Hr - OR Use (10/25/2019 3:54 PM EST) Narrative DH RAD - 10/25/2019 3:54 PM EST This exam is auto-finalizing. No interpretation was done. Denzel Madison MD IMG FLUORO ORDERABLE [place], [place] documented in this encounter Visit Diagnoses Diagnosis Lumbar radiculopathy Thoracic or lumbosacral neuritis or radiculitis, unspecified documented in this encounter Admitting Diagnoses Diagnosis Lumbar [...] Pain, Mild pain (1-3), Give per rectum (MO) if unable to take PO. Do not exceed 4000 mg acetaminophen per day., Routine acetaminophen (Tylenol) tablet 650 mg 650 mg, Oral, EVERY 4 HOURS PRN, Starting on Thu10/25/19 at 1614, Until Thu10/26/19 at 1318, Pain, Mild pain (1-3), Do not exceed 4000 mg acetaminophen per day., Routine Given 10/26/2019 8:34 AM EST 650 mg Given 10/25/2019 9:50 PM EST 650 mg ceFAZolin (ANCEF) 2g in dextrose 5% 100 mL 2 g, Intravenous, EVERY 8 HOURS, 3 doses, First dose on Thu10/25/19 at 1630, Last dose on Thu10/26/19 at 0830, Administer over 30 Minutes, Indication for (Active or Suspected): Prophylaxis New Bag 10/26/2019 8:26 AM EST 2 g 200 mL/hr New Bag 10/26/2019 1:33 AM EST 2 g 200 mL/hr New Bag 10/25/2019 5:29 PM EST 2 g 200 mL/hr cyclobenzaprine (Flexeril) tablet 10 mg 10 mg, [...] Given 10/25/2019 6:52 PM EST 300 mg HYDROmorphone (DILAUDID) injection 0.2-0.4 mg 0.2-0.4 mg, Intravenous, EVERY 5 MIN PRN, [...] for breakthrough pain., PACU Recovery, Routine Given 10/25/2019 5:20 PM EST 0.4 mg Given 10/25/2019 5:05 PM EST 0.4 mg Given 10/25/2019 4:55 PM EST 0.4 mg lactated ringers infusion 1,000 mL, at 100 mL/hr, Intravenous, CONTINUOUS, Starting on Thu10/25/19 at 1215, Until Thu10/25/19 at 1613, Day of Surgery (Day of Procedure) New Bag 10/25/2019 12:35 PM EST New Bag 10/25/2019 11:56 AM EST 1,000 mLs 100 mL/hr lidocaine (XYLOCAINE) 10 mg/mL (1 %) injection 3 mg 3 mg (0.3 mL), Subcutaneous, ONCE PRN, 1 dose, Starting on Thu10/25/19 at 1145, Until Thu10/25/19 at 1156, for discomfort with PIV insertion, Day of Surgery (Day of Procedure), Routine Given 10/25/2019 11:56 AM EST 3 mg losartan (Cozaar) tablet 50 mg 50 mg, [...] Given 10/25/2019 8:39 PM EST 500 mg metoprolol succinate XL (Toprol-XL) tablet 50 [...] 5:36 PM EST 1,000 mLs 100 mL/hr zolpidem (Ambien) tablet 10 mg 10 mg, [...] Prophylaxis 1729 (New Bag - Provider: Beryl Rincon, RN)1759 (Stopped - Provider: Beryl Rincon RN) 0133 (New Bag - Provider: Freddie De La O RN)0203 (Stopped - Provider: Freddie De La O RN)0826 (New Bag - Provider: Carley Zimmerman RN)0856 (Stopped - Provider: Carley Zimmerman RN) febuxostat [...] on Thu10/25/19 at 1745, Until Discontinued, Routine 185 (Given - Provider: Eris Mejia RN)215 (Given - Provider: Freddie De La O [...] 1430, STAT 2038 (Given - Provider: Beryl Rincon, SKY) 0230 (Not Given - Provider: Freddie De [...] in am) 0827 (Given - Provider: Carley Zimmerman, SKY) senna-docusate (Pericolace) 8.6-50 mg per tablet 2 [...] 2200, Until Discontinued, Recovery (Recovery-Hospital Unit), Routine 2203 (Given - Provider: Freddie De La O RN) 0900 (Given - Provider: Carley Zimmerman RN) Continuous Medication Order 10/24/2019 10/25/2019 10/26/2019 [...] Pain, Mild pain (1-3), Give per rectum (MO) if unable to take PO. Do not exceed 4000 mg acetaminophen per day., Routine 2149 (See Alternative - Provider: Freddie De La O RN) 0834 (See Alternative - Provider: Carley Zimmerman RN) acetaminophen (Tylenol) tablet 650 mg(Linked Group 1) [...] Recovery, Routine 1626 (Given - Provider: Beryl Rincon RN)1637 (Given - Provider: Beryl Rincon RN)1655 (Given - Provider: Beryl Rincon, SKY)1705 (Given - Provider: Beryl Rincon, RN)1720 (Given - Provider: Beryl Rincon, SKY) labetalol (NORMODYNE,TRANDATE) injection 10-20 mg 10-20 mg, [...] at 1318, Pain, severe pain (7-10), Routine 1642 (Given - Provider: Beryl Rincon RN)2150 (Given [...] 1642 (See Alternative - Provider: Beryl Rincon RN)2150 (See Alternative - Provider: Freddie De La [...] Pain, Mild pain (1-3), Give per rectum (MO) if unable to take PO. Do not [...] Routine documented in this encounter Care Teams Pocket Builder Relationship Specialty Start Date End Date Alek Esparza MD [address] [place] [phone] PCP - General 09/03/10 04/05/23 documented as of this encounter
--- OUTSIDE RECORDS SUMMARY | 2024-08-29 14:14 | XMS_ITS | Encounter Summary ---
Author Organization [facility] [place] [address] Care Team Providers Care Hospital Supervisor Name Role Phone Alek Esparza MD Primary Care Provider [phone] Reason for Visit * Auth/Cert Specialty Diagnoses / Procedures Referred By Contac t Referred To Contact Diagnoses Lumbar disc herniation with radiculopathy Procedures PRO LAMINOTOMY, LUMBAR DISK, 1 INTRSP PRO MICROSURG TECHNIQUES, REQ OPER MICROSCOPE EMERGENCY IPI Referral ID Status Reason Start Date Expiration Date Visits Re quested Visits Authorized [id number] 1 1 Encounter Details Date Type Department Care Team (Late st Contact Info) Description 10/25/2019 12:35 PM EST Anesthesia [place] [id number] Alexandre Watts MD [facility] [place] [address] Herber Gordillo CRNA [facility] [place] [address] Anesthesia Record Procedure Summary Procedure Name Responsible Anesthesiologist Anesthesia Start Time Anesthesia Stop Time LAMINOTOMY, DECOMPRESSION, FORAMINOTOMY, LUMBAR (WRVU 12) (Spine Lumbar) Alexandre Watts MD 10/25/19 1235 10/25/19 1610 Events Date Time Event Comment 10/25/2019 1235 1235 AN Verify 1235 Start 1235 An Start Data 1243 An Induction 1250 An Intubation 1252 Anesthesia Ready 1331 Break/Relief In Kelin L. McM mariana, TRANSPLANT COORDINATOR 1343 Procedure Start 1401 Break/Relief Out 1501 Break/Relief In Anay Oconnell ards, TRANSPLANT COORDINATOR 1601 Extubation/LMA Out 1603 an stop data 1610 Recovery or ICU Handoff Ramandeep ent care was transferred to the destination unit staff after review of the patient's medical history, current anesthetic/surgical status and plan, according to the Provider Handoff Checklist. 1610 Stop Meds Name Total Midazolam 2 mg fentaNYL 100 mcg IV Lidocaine 100 mg Propofol 400 mg Rocuronium 50 mg PHENYLephrine 160 mcg Ondansetron 4 mg Dexamethasone 8 mg Neostigmine 3 mg Glycopyrrolate 0.4 mg ceFAZolin (ANCEF) 2g in dextrose 5% 100 mL 2 g Propofol INF 690.12 mg HYDROmorphone 0.8 mg lactated ringers infusion 800 mL * Agents Name O2 Air N2O Sevoflurane (et) * Blood No blood administrations on file. Lines, Drains, and Airways Type Details Placement Removal Incision 02/08/13; fifth fing er; 06/09/22 (LDA cleanup utility RA#[id number]); 1715 (LDA cleanup utility RA#[id number]) 02/08/13 0000 by Loida Wade RN 06/09/22 1715 by Maritza Burnham Incision 10/16/14; elbow; 06/09/22 (LDA cleanup utility RA#[id number]); 1715 (LDA cleanup utility RA#[id number]) 10/16/14 0000 by Yelitza Carpenter RN 06/09/22 1715 by Maritza Burnham (RETIRED) Peripheral IV Line - Single Lumen 10/25/19; 1155; cephalic vein (lateral side of arm), left; 18 gauge; Yanira SWANSON; distraction, intradermal injection; 07/17/21 (LDA Cleanup utility RA#[id number]); 1650 (LDA Cleanup utility RA#[id number]) 10/25/19 1155 by Fara Clifford RN 07/17/21 1650 by Freddie Catalan ETT Mask Ventilation: Adjunct (2); ETT Type: Cuffed, Oral; ETT Size: 7.5 mm; Indirect: Video; Notes: Asleep, Pre-O2, Stylette; Attempts: 1; Laryngoscopy Grade: n/a; ETT Placement Verified By: Auscultation, Capnometry, Visual; Secured at Teeth: 22 cm; Intubation Injury: Soft Tissue; Inserted by: simonizer student Capri ; Removal Date: 10/25/19; Removal Time: 1601 10/25/19 1255 by Herber Gordillo CRNA 10/25/19 1601 by Herber Gordillo CRNA Urethral Catheter 10/25/19; 1255; Surg dio longer than 2 hours, Physician order; indwelling double lumen catheter; 100% silicone; 14; inserted at this facility; 1; 10; 10; none; drainage bag to dependent drainage; urethral catheter removed, tubing intact; 10/25/19; 1600 10/25/19 1255 by Kaylan Veloz RN 10/25/19 1600 by Kaylan Veloz RN Incision 10/25/19; 1342; back ; 06/09/22 (LDA cleanup utility RA#[id number]); 1715 (LDA cleanup utility RA#[id number]) 10/25/19 1342 by Kaylan Veloz RN 06/09/22 1715 by Maritza Burnham documented in this encounter Social History Tobacco Use Types Packs/Day Years Used Date Smoking Tobacco: Never Smokeless Tobacco: Never Alcohol Use Standard Drinks/Week Comments Yes 0 (1 standard drink = 0.6 oz pur e alcohol) 2-3 drinks daily Sex and Gender Information Value Date Recorded Sex Assigned at Not on file Gender Identity Not on file Sexual Orientation Not on file documented as of this encounter OR Notes * Anesthesia Postprocedure Evaluation - Alexandre Watts MD - 10/25/2019 4:28 PM EST Department of Anesthesiology Post-procedure Note Patient: Enoc Esteban Procedure Summary Date: 10/25/19 [facility] / [facility] Anesthesia Start: 1235 Anesthesia Stop: 1610 Procedures: LAMINOTOMY, DECOMPRESSION, FORAMINOTOMY, LUMBAR (WRVU 13.18) (N/A Spine Lumbar) MICROSCOPE USE (WRVU 3.46) (N/A Spine Lumbar) Diagnosis: (Lumbar disc herniation with radiculopathy) Surgeon: Denzel Madsion MD Responsible Provider: Alexandre Watts MD Anesthesia Type: general ASA Status: 3 All Anesthesia Providers: Anesthesiologist: Heron Conde MD; Alexandre Watts MD TRANSPLANT COORDINATOR: Herber Gordillo CRNA Vitals Value Taken Time BP 129/89 10/25/2019 4:15 PM Temp Pulse 68 10/25/2019 4:27 PM Resp 15 10/25/2019 4:27 PM SpO2 97 % 10/25/2019 4:27 PM Pain Level Vitals shown include unvalidated device data. Patient Location: PACU/[facility] Level of Consciousness: Conscious but Sleepy Pain Management: Pain Being Addressed PONV: None Cardiovascular Status: At Baseline Respiratory Status: At Baseline Postoperative Fluid Status: Intravascular EUvolemia Possible Anesthetic Complications: NONE apparent at time of evaluation Final Primary Anesthesia Type: General (The anesthetic type performed was the same as planned.) Comments: * Anesthesia Preprocedure Evaluation - Heron Conde MD - 10/25/2019 10:38 AM EST Pre-Anesthesia Evaluation for: Enoc Esteban a 59 y.o. male. Procedure(s): LAMINOTOMY, DECOMPRESSION, FORAMINOTOMY, LUMBAR (WRVU 13.18) MICROSCOPE USE (WRVU 3.46) Patient Active Problem List Diagnosis ??? Atrial fibrillation ??? Radiculopathy of cervical region ??? History of elbow surgery, right Dr. Howard, 10/16/2014 exc prox ulna entesophyte ??? Pain in right elbow ??? Fracture of left small finger, proximal, closed ??? HTN (hypertension) ??? Tophaceous gout ??? Hyperuricemia ??? Mild vitamin D deficiency ??? Asthma ??? TYRON (obstructive sleep apnea) No past medical history on file. Past Surgical History: Procedure Laterality Date ??? PRO CLOSED TREAT TOE FX 02/08/2013 CLOSED TREATMENT FX PHALANX OR PHALANGES performed by Rohan Duarte MD at [facility] ??? PRO REMOVAL OF ELBOW BURSA Right 10/16/2014 EXCISION OF OLECRANON BURSA performed by Anupama Howard MD at [facility] Social History Tobacco Use ??? Smoking status: Never Smoker ??? Smokeless tobacco: Never Used Substance Use Topics ??? Alcohol use: Yes Comment: 4 drinks daily Social History Substance and Sexual Activity Drug Use Yes ??? Types: Marijuana Comment: non medical.. uses for sleep / pain Allergies Allergen Reactions ??? Allopurinol Rash Medications: MAR and/or home medications have been reviewed. Physical Exam: There were no vitals filed for this visit. There is no height or weight on file to calculate BMI. Airway Assessment: Mallampati: I TM distance: >3 FB Neck ROM: full Cardiovascular Assessment: Pulmonary Assessment: Dental Assessment: Misc Assessment: Anesthesia Plan: ASA 3 general, with a(n) intravenous induction Patient is a 59-year-old male with TYRON with lumbar disc herniation with radiculopathy now scheduledfor L4-L5 laminectomy under anesthesia. He is n.p.o. since yesterday Took his a.m. meds Denies URI consent was obtained risks were explained. Region - Other Informed Consent: Anesthetic plan and risks discussed with patient. Plan discussed with TRANSPLANT COORDINATOR and attending. PAT Clinic Note documented in this encounter Plan of Treatment Not on file documented as of this encounter Visit Diagnoses Not on filedocumented in this encounter Administered Medications Inactive Administered Medications - up to 3 most recent administrations Medication Order MAR Action Action Date Dose Rate Site ceFAZolin (ANCEF) 2g in dextrose 5% 100 mL 2 g, Intravenous, ONCE, 1 dose, On Thu10/25/19 at 1230, Administer over 30 Minutes, Indication for (Active or Suspected): Prophylaxis Given 10/25/2019 1:17 PM EST 2 g dexamethasone (DECADRON) injection PRN, Starting on Thu10/25/19 at 1350, Until Thu10/25/19 at 1612, Anesthesia Intra-op, Routine Given 10/25/2019 1:50 PM EST 8 mg fentaNYL 50 mcg/mL multi-dose injection PRN, Starting on Thu10/25/19 at 1243, Until Thu10/25/19 at 1612, Anesthesia Intra-op, Routine Given 10/25/2019 1:45 PM EST 50 mcg Given 10/25/2019 12:43 PM EST 50 mcg glycopyrrolate (ROBINUL) multi-dose injection PRN, Starting on Thu10/25/19 at 1538, Until Thu10/25/19 at 1612, Anesthesia Intra-op, Routine Given 10/25/2019 3:38 PM EST 0.4 mg HYDROmorphone (DILAUDID) injection PRN, Starting on Thu10/25/19 at 1455, Until Thu10/25/19 at 1612, Anesthesia Intra-op, Routine Given 10/25/2019 4:10 PM EST 0.2 mg Given 10/25/2019 3:04 PM EST 0.4 mg Given 10/25/2019 2:55 PM EST 0.2 mg lactated ringers infusion 1,000 mL, at 100 mL/hr, Intravenous, CONTINUOUS, Starting on Thu10/25/19 at 1215, Until Thu10/25/19 at 1613, Day of Surgery (Day of Procedure) New Bag 10/25/2019 12:35 PM EST New Bag 10/25/2019 11:56 AM EST 1,000 mLs 100 mL/hr lidocaine (PF) (XYLOCAINE) 100 mg/5 mL (2 %) injection PRN, Starting on Thu10/25/19 at 1243, Until Thu10/25/19 at 1612, Anesthesia Intra-op, Routine Given 10/25/2019 12:43 PM EST 100 mg midazolam (PF) (VERSED) multi-dose injection PRN, Starting on Thu10/25/19 at 1235, Until Thu10/25/19 at 1612, Anesthesia Intra-op, Routine Given 10/25/2019 12:35 PM EST 2 mg neostigmine (BLOXIVERZ) injection PRN, Starting on Thu10/25/19 at 1538, Until Thu10/25/19 at 1612, Anesthesia Intra-op, Routine Given 10/25/2019 3:38 PM EST 3 mg ondansetron (ZOFRAN) injection PRN, Starting on Thu10/25/19 at 1538, Until Thu10/25/19 at 1612, Anesthesia Intra-op, Routine Given 10/25/2019 3:38 PM EST 4 mg PHENYLephrine in NS (PF) (NUZHAT-SYNEPHRINE) 0.8 mg/10 mL (80 mcg/mL) multi-dose injection Syrg PRN, Starting on Thu10/25/19 at 1401, Until Thu10/25/19 at 1612, Anesthesia Intra-op, Routine Given 10/25/2019 2:23 PM EST 80 mcg Given 10/25/2019 2:01 PM EST 80 mcg propofol (DIPRIVAN) 10 mg/mL bolus injection (Anesthesia) PRN, Starting on Thu10/25/19 at 1243, Until Thu10/25/19 at 1612, Anesthesia Intra-op Given 10/25/2019 1:44 PM EST 50 mg Given 10/25/2019 1:43 PM EST 50 mg Given 10/25/2019 12:43 PM EST 300 mg propofol (DIPRIVAN) infusion CONTINUOUS PRN, Starting on Thu10/25/19 at 1332, Until Thu10/25/19 at 1612, Anesthesia Intra-op, Routine Rate/Dose Change 10/25/2019 1:45 PM EST 50 mcg/kg/min 32.4 mL/hr New Bag 10/25/2019 1:32 PM EST 30 mcg/kg/min 19.4 mL/hr rocuronium (ZEMURON) multi-dose injection PRN, Starting on Thu10/25/19 at 1246, Until Thu10/25/19 at 1612, Anesthesia Intra-op, Routine Given 10/25/2019 12:46 PM EST 50 mg documented in this encounter Care Teams Hospital Supervisor Relationship Specialty Start Date End Date Alek Esparza MD [address] [place] [phone] PCP - General 09/03/10 04/05/23 documented as of this encounter
--- OUTSIDE RECORDS SUMMARY | 2024-08-29 14:14 | XMS_ITS | Encounter Summary ---
Author Organization [facility] [place] [address] Care Team Providers Care Seo Strategist Name Role Phone Alek Esparza MD Primary Care Provider [phone] Encounter Details Date Type Department Care Team (Late st Contact Info) Description 07/19/2019 [place] [phone] Taylor Sosa Social History Tobacco Use Types Packs/Day Years [...] encounter Miscellaneous Notes * Telephone Encounter - Taylor Sosa - 07/25/2019 5:15 PM EDT Spoke with patient and scheduled consult. * Telephone Encounter - Kelly Cristina - 07/20/2019 10:45 AM EDT Called pt to schedule appt w surgeon = LM * Telephone Encounter - Taylor Sosa - 07/19/2019 6:28 PM EDT Patient needs f/u appointment(s): With Spine Surgeon on/around 08/02/19-08/16/19 2-4 week CON, discuss surgical options, Herniation of lumbar intervertebral disc with radiculopathy, no imaging requested * Telephone Encounter - Taylor Sosa - 07/19/2019 6:28 PM EDT Alek Arellano PA Sent: Judy July 19, 2019 ??2:03 PM To: [facility] Neurosurgery [place] Enoc Esteban ( ) : 1960> ?? Follow-up and Dispositions Check-out Note: 1) 2-4 wk follow up, RTC to meet w/ spine surgeon, patient would like to discuss surgical options documented in this encounter Plan of Treatment Not on file documented as of this encounter Visit Diagnoses Not on filedocumented in this encounter Care Teams Seo Strategist Relationship Specialty Start Date End Date Alek Esparza MD [address] [place] [phone] PCP - General 09/03/10 04/05/23 documented as of this encounter
--- OUTSIDE RECORDS SUMMARY | 2024-08-29 14:14 | XMS_ITS | Encounter Summary ---
Author Organization [facility] Address [facility] [place] [address] Care Team Providers Care Radio Interference Supervisor Name Role Phone Alek Esparza MD Primary Care Provider [phone] Encounter Details Date Type Department Care Team (Latest Contact Info) Description 07/27/2019 3:20 PM EDT Office [place] [phone] Denzel Madison MD [facility] [place] [address] Herniation of lumbar intervertebral disc with radiculopathy Social History Tobacco Use Types Packs/Day [...] Sign Reading Time Taken Comments Blood Pressure 124/68 07/27/2019 3:59 PM EDT Pulse 71 07/27/2019 3:59 PM EDT Temperature - - Respiratory Rate - - Oxygen Saturation - - Inhaled Oxygen Concentration - - Weight 106.6 kg (235 lb) 07/27/2019 3:59 PM EDT Height 177.8 cm (5' 10) 07/27/2019 3:59 PM EDT Body Mass Index 33.72 07/27/2019 3:59 PM EDT documented in this encounter Progress Notes * Denzel Madison MD - 07/27/2019 3:20 PM EDT Neurosurgery Clinic Note Patient Enoc Esteban 1960 DATE OF VISIT: 07/27/2019 REASON FOR VISIT: Lumbar disc herniation SUBJECTIVE: I saw Enoc Esteban at the neurosurgery clinic for a follow-up of his lumbar disc degeneration withradiculopathy. He presents with a several year history of low back pain that has progressed to severe left leg pain over the last several months. The patient reports that over the past several weeks he has tried a Medrol Dosepak and Gabapentin with persistence of left leg pain. It is affecting his overall quality of life. He reports associated weakness secondary to pain. He denies any bowel or bladder difficulty.. OBJECTIVE: BP 124/68 Pulse 71 Ht 177.8 cm (5' 10) Wt 106.6 kg (235 lb) BMI 33.72 kg/m?? No acute distress Awake, Alert, Interactive Pupils equal and reactive Extraocular movements intact No drift Moving all extremities with full strength except left leg limited by pain (4 out of 5) Gait: Antalgic CURRENT MEDICATIONS: HYDROcodone-acetaminophen, albuterol-ipratropium, apixaban, ergocalciferol (vitamin D2), febuxostat, gabapentin, ibuprofen, losartan, methylPREDNISolone, metoprolol succinate, sildenafil, and zolpidem ASSESSMENT: 59 y.o. male with lumbar disc degeneration with L5 radiculopathy. I reviewed the MRI of the lumbar spine with the patient. We discussed management options. Given the patient's progression of pain andlack of benefit from conservative care, he is an appropriate surgical candidate. I recommended getting flexion-extension films of the lumbar spine today to assess for any dynamic instability. X-rays d one today show no dynamic instability. Given the left L4-5 paracentral disc herniation and compression of the L5 traversing nerve root, the patient would benefit from a left L4-5 hemilaminectomy withmicrodiscectomy. The patient is eager to proceed with surgery. I noted the need for medical clearance as well as cardiology clearance prior to proceeding with surgery. Given his atrial fibrillation, he will need to stop his Eliquis prior to surgery. PLAN: Schedule for left L4-5 hemilaminectomy with microdiscectomy after medical and cardiology clearance. I spent 20 minutes of this 25??minute encounter in face to face contact counseling the patient and addressing specific questions. At the conclusion of our discussion he indicated that he had no further questions. The patient understands to contact neurosurgery or seek emergent help with any acute wo rsening of neurologic symptoms. ?? -- Denzel Madison MD PhD Section of Neurosurgery Department of Surgery [facility] documented in this encounter Plan of Treatment Not on file documented as of this encounter Results * XR Lumbar Spine 2 Or 3 Views (Generic) (07/27/2019 5:04 PM EDT) Anatomical Region Laterality Modality L-spine N/A Digital Radiogra phy Impressions 07/27/2019 5:10 PM EDT Degenerative disc disease L3-4 and L4-5. No evidence for subluxation or instability detected on the flexion and extension views Thank you for letting us participate in the care of this patient. For questions regarding this report, please contact the number below. ? Electronically signed by: PROSPER ROTHMAN [facility] ([phone]), at 07/27/2019 5:10 PM Narrative 07/27/2019 5:10 PM EDT EXAMINATION: XR LUMBAR SPINE 2 OR 3 VIEWS (GENERIC) CLINICAL HISTORY: evaluate dynamic instability Include lateral views : ??1) Neutral; 2) Flexion; 3) Extension TECHNIQUE: 3 views of the lumbar spine COMPARISON: None FINDINGS: Lumbar spine neutral flexion and extension lateral views, were obtained. On the neutral view the lumbar vertebra are normally aligned. The vertebral body heights are maintained, there is disc space narrowing mildly at L3-4 and more prominently at L4-5 consistent with degenerative disc disease. There are anterior osteophytes at L4. The aorta is arterial sclerotic. With flexion and extension positioning there is no evidence for listhesis or subluxation. No instability is demonstrated. Procedure Note Prosper Rothman MD - 07/27/2019 EXAMINATION: XR LUMBAR SPINE 2 OR 3 VIEWS (GENERIC) CLINICAL HISTORY: evaluate dynamic instability Include lateral views : 1) Neutral; 2) Flexion; 3) Extension TECHNIQUE: 3 views of the lumbar spine COMPARISON: None FINDINGS: Lumbar spine neutral flexion and extension lateral views, were obtained.On the neutral view the lumbar vertebra are normally aligned. The vertebralbody heights are maintained, there is disc space narrowing mildly at L3-4 andmore prominently at L4-5 consistent with degenerative disc disease. There are anterior osteophytes at L4. The aorta is arterial sclerotic. With flexion and extension positioning there is no evidence for listhesisor subluxation. No instability is demonstrated. IMPRESSION Degenerative disc disease L3-4 and L4-5. No evidence for subluxation or instability detected on the flexion andextension views Thank you for letting us participate in the care of this patient. Forquestions regarding this report, please contact the number below. Electronically signed by: PROSPER ROTHMAN [facility]([phone]), at 07/27/2019 5:10 PM Denzel Madison MD IMG DX ORDERABLES documented in this encounter Visit Diagnoses Diagnosis Herniation of lumbar intervertebral disc with radiculopathy Intervertebral lumbar disc disorder with myelopathy, lumbar region Herniation of lumbar intervertebral disc with radiculopathy Intervertebral lumbar disc disorder with myelopathy, lumbar region documented in this encounter Care Teams Radio Interference Supervisor Relationship Specialty Start Date End Date Alek Esparza MD [address] [place] [phone] PCP - General 09/03/10 04/05/23 documented as of this encounter
--- OUTSIDE RECORDS SUMMARY | 2024-08-29 14:14 | XMS_ITS | Encounter Summary ---
Author Organization [facility] Address [facility] [place] [address] Care Team Providers Care Registered Pharmacist Name Role Phone Alek Esparza MD Primary Care Provider Reason for Visit * Reason Comments Advice Only DDD, disc protrusion at L4-5 w/possible mass effect upon origin of left L5 root * Consultation (GEREMIAS) - Closed Specialty Diagnoses / Procedures Referred By Contac t Referred To Contact Neurosurgery Diagnoses Other intervertebral disc degeneration, lumbar region PROGRESSIVE L5 NERVE ROOT COMPRESSION, ADVANCED DDD LUMBAR SPINE Alek Esparza MD [address] [place] [address] [facility] [address] [place] [address] Referral ID Status Reason Start Date Expiration Date V isits Requested Visits Authorized [id number] Closed Consult, Test & Treat Connection Center PCP Updated and/or Approved 06/30/2019 06/29/2020 1 1 Encounter Details Date Type Department Care Team (Latest Contact Info) Description 07/19/2019 1:00 PM EDT Office [place] [address] Alek Arellano, PA [facility] [address] Herniation of lumbar intervertebral disc with radiculopathy [...] Reading Time Taken Comments Blood Pressure 122/84 07/19/2019 12:12 PM EDT Pulse 102 07/19/2019 12:12 PM EDT Temperature - - Respiratory Rate - - Oxygen Saturation - - Inhaled Oxygen Concentration - - Weight - - Height - - Body Mass Index - - documented in this encounter Progress Notes * Alek Arellano PA - 07/19/2019 1:00 PM EDT Images from the original note were not included. Section of Neurosurgery Initial Consultation Note 07/19/2019 Alek Esparza MD [address] [place] [address] RE: Enoc Esteban : [address] Esparza: Thank you for referring your patient Enoc Esteban to the Neurosurgery Clinic at [facility]. He is known to the Neurosurgery department for cervical radiculopathy. However, heis being seen today for new consultation on a separate issue of lumbar radiculopathy. As you know, Mr. Esteban is a pleasant 59 y.o. male with a ten year history of left lower extremity radiculopathy. He has a known L4-5 disc osteophyte complex with herniated disc material asymmetric tothe left. His symptoms have come and gone throughout the years and has attempted management previously with physical therapy, injections, and medications. He notes no correlation between treatments and in improvement in his symptoms. His left leg pain recurred about 3-4 months ago and is worse thanit has been in years. Pain travels down the hip, to the lateral leg, crosses to the ankle, and top of the foot. He experiences sensory changes in a similar distribution. Pain limits his mobility, buthe denies focal motor weakness or bowel/bladder changes. He is taking hydrocodone for pain. PT and injections tried years ago with no effect. PAST MEDICAL HISTORY: Patient Active Problem List Diagnosis ??? Atrial [...] apnea) No past medical history on file. PAST SURGICAL HISTORY: Past Surgical History: Procedure Laterality Date ??? PRO CLOSED TREAT TOE FX 02/08/2013 CLOSED TREATMENT FX PHALANX OR PHALANGES performed by Rohan Duarte MD at [facility] ??? PRO REMOVAL OF ELBOW BURSA Right 10/16/2014 EXCISION OF OLECRANON BURSA performed by Anupama Howard MD at [facility] SOCIAL HISTORY: Social History Tobacco Use ??? Smoking status: Never Smoker ??? Smokeless tobacco: Never Used Substance Use Topics ??? Alcohol use: Yes Comment: 4 drinks daily ??? Drug use: Yes Types: Marijuana Comment: non medical.. uses for sleep / pain FAMILY HISTORY: Family History Problem Relation Age of Onset ??? Cancer Father CURRENT MEDICATIONS: ??? VITAMIN D 50,000 unit Capsule ??? ibuprofen (ADVIL;MOTRIN) 800 mg Tablet ??? metoprolol succinate (TOPROL-XL) 50 mg Tablet Sustained Release 24 hr ??? ULORIC 80 mg Tablet ??? ELIQUIS 5 mg Tablet ??? VIAGRA 100 mg Tablet ??? losartan (COZAAR) 50 mg Tablet ??? HYDROcodone-acetaminophen (NORCO) 10-325 mg Tablet ??? zolpidem (AMBIEN) 10 mg tablet ??? albuterol-ipratropium (COMBIVENT) 18-103 mcg/Actuation inhaler ALLERGIES: Allergies Allergen Reactions ??? Allopurinol Rash REVIEW OF SYSTEMS: Full ROS completed. Pertinent findings per HPI. PHYSICAL EXAMINATION: Blood pressure 122/84, pulse (!) 102. Awake, alert, and in no acute distress. Speech: Appropriate and fluent; answers questions appropriately. Cranial Nerves: II-XII grossly intact. Motor: Normal muscle bulk and tone. No pronator drift. Strength 5/5 in hip flexion, knee extension,DF, EHL, and PF. Reflexes: No hyperreflexia in the LEs. Sensation: Grossly intact to light touch in all four extremities. Cerebellar: No dysmetria with finger to nose testing bilaterally. Gait: Antalgic. RADIOGRAPHIC STUDIES: MRI lumbar spine 04/29/2019 Diffuse spondylosis and degenerative disc disease. L4-5 disc osteophyte complex with left paracentral disc herniation and epidural fat contributing to moderate spinal canal stenosis and likely compression of the traversing L5 nerve root. Changes appear similar but slightly progressed from MRI lumbar spine from 2009. IMPRESSION AND PLAN: Mr. Esteban is a 59 y.o. male presenting with left L5 radiculopathy in the setting of a L4-5 disc herniation asymmetric to the left. We discussed management strategies including medications, therapy, injections, and surgery. He is reluctant to pursue both therapy and injections as these have failed in the past. He is interested in starting medication and learning more about surgery. I will make a referral to one of our spine surgeons for surgical consultaiton. In the meantime we will start gabapentin and a medrol dosepak to try to get him more comfortable. Based on my findings I suggest the following course of action: 1. RTC to meet w/ spine surgeon to discuss surgical options 2. Start gabapentin 3. Start medrol dosepak It was my pleasure to have seen and examined Mr. Esteban. In our visit today, we discussed the patient's current condition, the natural course history without treatment and various interventional options. I will be sure to keep you updated after Mr. Esteban returns here for further follow-up. Thank youagain for your referral. Please don't hesitate to contact me if you have any further questions. Sincerely, Alek Arellano PA-C, MS Physician Mat Making Machine Tender [facility] Department of Neurosurgery [address] [place] [address] CC: Alek Esparza MD CC: Alek Esparza MD [address] [place] [address] This message is confidential, intended only for the named recipient(s) and may contain information that is privileged or exempt from disclosure under applicable law. If you are not the intended recipient(s), you are notified that the dissemination, distribution or copying of this information is strictly prohibited. If you received this message in error, please notify the sender then delete this message. documented in this encounter Plan of Treatment Not on file documented as of this encounter Visit Diagnoses Diagnosis Herniation of lumbar intervertebral disc with radiculopathy Intervertebral lumbar disc disorder with myelopathy, lumbar region documented in this encounter Care Teams Registered Pharmacist Relationship Specialty Start Date End Date Alek Esparza MD [address] [place] [phone] PCP - General 09/03/10 04/05/23 documented as of this encounter
--- OUTSIDE RECORDS SUMMARY | 2024-08-29 14:14 | XMS_ITS | Encounter Summary ---
Author Organization [facility] [place] [address] Care Team Providers Care Slasher Name Role Phone Alek Esparza MD Primary Care Provider [phone] Encounter Details Date Type Department Care Team (Late st Contact Info) Description 08/03/2019 [place] [phone] Astrid Serna Social History Tobacco Use Types [...] encounter Miscellaneous Notes * Telephone Encounter - Astrid Serna - 08/17/2019 8:15 AM EST Faxing to Tonya Limon [phone], sent to HIS * Telephone Encounter - Astrid Serna - 08/04/2019 2:32 PM EDT Recd back from in [place] folder to sign. * Telephone Encounter - Astrid Serna - 08/03/2019 3:14 PM EDT Recd fax FMLA form, sent to to be filled out Fax back to [phone] documented in this encounter Plan of Treatment Not on file documented as of this encounter Visit Diagnoses Not on filedocumented in this encounter Care Teams Slasher Relationship Specialty Start Date End Date Alek Esparza MD [address] [place] [phone] PCP - General 09/03/10 04/05/23 documented as of this encounter
--- OUTSIDE RECORDS SUMMARY | 2024-08-29 14:14 | XMS_ITS | Encounter Summary ---
Author Organization [facility] Address [facility] [place] [address] Care Team Providers Care Firmware Developer Name Role Phone Alek Esparza MD Primary Care Provider [phone] Encounter Details Date Type Department Care Team (Late st Contact Info) Description 08/03/2017 Refill Rheumatology at [facility] [place] [phone] Fabienne Mills LPN Social History Tobacco Use [...] Telephone Encounter - Fabienne Mills LPN - 08/03/2017 11:55 AM EDT Pt phones to report that the allopurinol gave him a rash and he cannot take it. His pharmacy statedthat they could get his uloric for a cheaper molina if it is ordered for a 90 day supply. He also wanted to know if he could have a losartan refill And a vit D refill. Thanks Rosangela ++++++++++++++++++++++ Please order to refill losartan, and vit D prednisone 5 mg. I have called him about the [employer] card. documented in this encounter Plan of Treatment Not on file documented as of this encounter Visit Diagnoses Not on filedocumented in this encounter Care Teams Firmware Developer Relationship Specialty Start Date End Date Alek Esparza MD [address] [place] [phone] PCP - General 09/03/10 04/05/23 documented as of this encounter
--- OUTSIDE RECORDS SUMMARY | 2024-08-29 14:14 | XMS_ITS | Encounter Summary ---
Author Organization [facility] Address [facility] [place] [address] Care Team Providers Care Network Control Operator Name Role Phone Alek Esparza MD Primary Care Provider [phone] Reason for Visit * Reason Comments Pre-op Exam left SLIM DOS 0 Encounter Details Date Type Department Care Team (Late st Contact Info) Description 04/04/2020 3:00 PM EDT Office [place] [address] Isidoro Lay MD [facility] [place] [address] Primary osteoarthritis of left hip Social History Tobacco Use Types [...] Sign Reading Time Taken Comments Blood Pressure 117/77 04/04/2020 2:42 PM EDT Pulse 86 04/04/2020 2:42 PM EDT Temperature - - Respiratory Rate - - Oxygen Saturation - - Inhaled Oxygen Concentration - - Weight 111.1 kg (245 lb) 04/04/2020 2:42 PM EDT Height 179.1 cm (5' 10.5) 04/04/2020 2:42 PM ED T Body Mass Index 34.66 04/04/2020 2:42 PM EDT documented in this encounter Progress Notes * Veronica Russo RN - 04/04/2020 3:00 PM EDT Arthroplasty History/Previous Orthopaedic Surgery: 1. None This note is recorded by Veronica Russo RN acting as a scribe for Dr. Parish Lay. PREOPERATIVE VISIT Interval History: Enoc Esteban is a pleasant 60 y.o. year old male being seen today to discuss a left total hip replacement. His history was once again discussed and is outlined in a previous note. They have reviewed their options and at this point are expressing a desire to proceed with surgery. Physical Exam: Exam is previously documented in a note and is essentially unchanged. Hip Exam: Clinical Leg Length Discrepancy - 0cm Inspection of his skin on the operative side demonstrates No skin breakdown or open wounds. Significant Medical Comorbidities Patient Active Problem List Diagnosis Code ??? [...] Z98.890 ??? History of lumbar surgery Z98.890 VITALS: BP Readings from Last 1 Encounters: 04/04/20 117/77 Pulse Readings from Last 1 Encounters: 04/04/20 86 Height: 179.1 cm (5' 10.5) Weight: 111.1 kg (245 lb) Body mass index is 34.66 kg/m??. Relevant Lab Studies Lab Results Component Value Date WBC 7.2 03/23/2020 HGB 15.0 03/23/2020 HCT 47.0 03/23/2020 PLATELET 272 03/23/2020 CREATININE 1.37 03/23/2020 BUN 15 03/23/2020 NA 138 03/23/2020 K 4.6 03/23/2020 CRP 1.1 07/20/2017 SEDRATE 4 07/20/2017 INR 1.1 03/23/2020 No results for input(s): HA1C in the last 7068 hours. No results for input(s): ALBUMIN in the last 168 hours. Estimated Creatinine Clearance: 74 mL/min (based on SCr of 1.37 mg/dL). TJA Clotting and Bleeding Assessment Genetic predisposition or history of DVT or PE: No Hypercoaguable state?: No History of bleeding disorder?: No GI bleed or history of hemorrhagic stroke within the past 2 years: No Patient on lifelong anticoagulant for other reasons: Yes, for AF Discharge anticoagulation plan: Other (comment)(Eliquis) Infection Prevention Patient demonstrated appropriate skin integrity/infection knowledge level after instructions provided: Yes Patient demonstrated appropriate dental prophylaxis knowledge level after instructions provided: Yes Patient demonstrated appropriate understanding of pre-op chlorhexideine wash and mupirocin ointmentuse after instructions provided: Yes General Assessment Total joint preparedness for surgery: Received binder, 1:1 Patient understands when to call the office pre-op and post-op: Verbalizes understanding Assistive device(s) used pre-op: Axillary crutches Patient currently on narcotics: Yes(Hydrocodone) Patient has narcotic agreement signed: Yes (see comment)(with PCP) Assessment and Plan: This is a pleasant 60 y.o. year-old male who presents for a preoperative appointment today for consideration of a left total hip replacement. We had a discussion regarding the risks and benefits of surgery. I indicated that in my opinion, this is a treatment option most likely to restore a more normal, pain- free level of function and that we have exhausted reasonable non-operative alternatives. Idiscussed how I perform the procedure and all of their questions were answered. We discussed the risks of a total hip arthroplasty: Bleeding, infection, scar formation, dislocation, leg length inequality, persistent pain, stiffness, bursitis, failure/wear/loosening/breakage of implants, implant malposition, need for additional/future surgery, fracture, clot formation, embolus,stroke, nerve palsy, blood vessel injury, skin numbness, anesthetic and/or medical complications, . We reviewed options for postoperative DVT prophylaxis, based on AAOS guidelines. We discussed the pros and cons of different anticoagulants in terms of effectiveness and clot / embolus preventions vs. risks of bleeding and wound complications. We also reviewed their preferences regarding use of blood products and confirmed that while we would endeavor to minimize the risks of needing any transfusions, if circumstances were such that one ormore were indeed required, he would NOT refuse a blood transfusion. Enoc Esteban will be prescribed a prescription opioid for the treatment of acute post-operative pain related to orthopedic surgery. Enoc Esteban was advised to take the smallest dose possible to control their pain and as their pain improves to take smaller doses and increase the time between doses. Patient has a chronic opioid agreement signed with PCP, and post operative pain management plan hasbeen discussed with the patient and prescriber. We will manage post op pain for 4-6 weeks, then refer back to PCP for any further need. The Acute Opioid Therapy Informed Consent form has been completed and sent to medical records for scanning to chart. Opioid PDMP 04/04/2020 [place] PDMP Query Date 04/04/2020 [place] PDMP Query Date 04/04/2020 [place] PDMP Query Date 04/04/2020 In addition to this medication, non-opioid medications will be prescribed for adjunct treatment of their pain. Non-pharmacological treatment such as ice, elevation and activity modification was recommended as appropriate. Enoc Esteban was instructed to administer Mupirocin into the nares twice daily starting 5 days prior to surgical date. Additional instructions were given to him at the time the medication was dispensed. He was also given chlorhexidine soap to use the night before and the morning of surgery. We discussed with the patient the possible discharge scenarios. The patient will require VNA services post-op: no, patient will discharge home with outpatient PT scheduled within 3-5 days post operatively. Prep for Surgery Advance Directive: Does not have one (does not want to fill out) Recommend referral to Patient Financial Services: No Living arrangement: House Home layout: Two level, Stairs to enter w/ rails Number of stairs within home: (Lives on main level) Who will provide post-op care and support: Significant other (Natalia Catherine) Who will provide transportation home: Significant other Patient's desired discharge disposition: Home Top 3 nursing choice facilities: n/a VNA preference: n/a Outpatient PT preference: [facility] Discharge barriers and challenges: n/a The patient prefers crutches to help with post-operative ambulation. The patient has crutches and will bring them to surgery. Recommendations from Dr. Freire: Start Eliquis at 2.5mg po BID - first dose 6-10 hours after surgery provided there is no surgical contraindication and no blood on spinal and increase to 5mg po BID in 48-72 hours after surgery if tolerating above. Continue Uloric, gabapentin (could change to usual postoperative dosing schedule as patient wants to stop his chronic TID dosing), prn Combivent. Hold metoprolol if SBP<100 or HR<55 Hold losartan if SBP<120 Post operative orthopaedic anti-coagulation plan: Eliquis 2.5mg po BID - first dose 6-10 hours after surgery provided there is no surgical contraindication and no blood on spinal and increase to 5mg po BID in 48-72 hours after surgery if tolerating above. for 30 days Chronic anti-coagulation: yes Eliquis Expedited Discharge Candidate?: NO We discussed using Celebrex while in house. Upon discharge we will give the patient Naprosyn to take for 6 weeks after surgery for post-operative pain management. Any remaining questions were solicited from the patient and answered. Mr. Esteban wishes to proceed accordingly and informed consent was subsequently obtained for a left total hip replacement. I have personally evaluated the patient and agree with the above note as recorded by SKY Voss MD 04/04/2020 documented in this encounter Plan of Treatment Not on file documented as of this encounter Visit Diagnoses Diagnosis Primary osteoarthritis of left hip Primary localized osteoarthrosis, pelvic region and thigh documented in this encounter Administered Medications Inactive Administered Medications - up to 3 most recent administrations Medication Order MAR Action Action Date Dose Rate Site mupirocin (BACTROBAN) 2 % ointment 1 each 1 each, Topical (Top), 2 TIMES DAILY, First dose on 04/04/20 at 0915, 10 doses, Last dose on Thu04/08/20 at 2100, Apply two times daily to nares for 5 days prior to surgery Given 04/04/2020 3:49 PM EDT 1 each documented in this encounter Care Teams Network Control Operator Relationship Specialty Start Date End Date Alek Esparza MD [address] [place] [phone] PCP - General 09/03/10 04/05/23 documented as of this encounter
--- OUTSIDE RECORDS SUMMARY | 2024-08-29 14:14 | XMS_ITS | Encounter Summary ---
Author Organization [facility] Address 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 CC: Enoc Esteban is a 60 y.o. male new patient to the perioperative clinic with the following problems and medications that is being seen in the clinic for consultation at the request of his surgeonDr. Isidoro Lay for preoperative risk stratification and management recommendations in anticipation of left total hip arthroplasty for symptomatic OA. HPI - Pain - Location - left hip, Quality - aching, Onset - gradual, Duration - several months, Intensity - moderate to severe, Aggravating factors - standing, walking, stepping, bending, Alleviatingfactors - NSAID, APAP, opiate, rest, Associated - does note other hip joint/lower back pain. No gout flare for a year and not needed prednisone on Uloric. Patient Active Problem List Diagnosis Code ??? [...] Z98.890 ??? History of lumbar surgery Z98.890 Current Outpatient Medications Medication Sig Dispense Refill ??? predniSONE (Deltasone) 10 mg Tablet TAKE [...] 5 mg by mouth 2 times daily. Resume 10 days after surgery.) 6 ??? acetaminophen (TYLENOL) 325 mg Tablet [...] No current facility-administered medications for this visit. Social History Occupational History ??? Not on file Tobacco Use ??? Smoking status: Never Smoker ??? Smokeless tobacco: Never Used Substance and Sexual Activity ??? Alcohol use: Yes Alcohol/week: 4.0 standard drinks Types: 2 Cans of beer, 2 Standard drinks or equivalent per week Comment: 2-3 drinks daily ??? Drug use: Never Types: Marijuana Comment: non medical.. uses for sleep / pain ??? Sexual activity: Not on file Family History Problem Relation Age of Onset ??? Cancer Father Review of Systems Constitutional: Negative for chills, diaphoresis and fever. Respiratory: Negative for cough, shortness of breath and wheezing. Takes Combivent MDI once daily on prn basis. Cardiovascular: Negative for chest pain, does have occasional palpitations and light headedness with exertion and resolves with rest, these are less frequent with control of his Afib, and denies leg swelling. Gastrointestinal: Negative for abdominal pain, anal bleeding and blood in stool. His BM are back tobaseline, usually goes once in am and once PM. Endocrine: Negative for polydipsia and polyphagia. Gout controlled. Genitourinary: Negative for dysuria, flank pain and hematuria. Skin: Negative for pallor and rash. Allergic/Immunologic: Negative for environmental allergies and immunocompromised state. Neurological: Negative for presyncope, syncope and speech difficulty. Hematological: Negative for adenopathy. Does bruise/bleed easily. Denies nose or gum bleeds or melena. Psychiatric/Behavioral: Negative for confusion, decreased concentration and dysphoric mood. Allergies: Allergies Allergen Reactions ??? Allopurinol Rash Physical Exam: Last Set of Vitals and Range over past 24 hours: Last value Range last 24 hrs Heart Rate Heart Rate: (!) 120 Heart Rate: [103-120] Blood Pressure BP: 105/73 BP: (105)/(73) SpO2 SpO2: [97 %] Pulse resting is 87/min Estimated body mass index is 31.57 kg/m?? as calculated from the following: Height as of an earlier encounter on 03/23/20: 177.8 cm (5' 10). Weight as of an earlier encounter on 03/23/20: 99.8 kg (220 lb). Physical Exam Constitutional: He is oriented to person, place, and time. He appears well- developed. No distress. HENT: Head: Normocephalic and atraumatic. Eyes: Right eye exhibits no discharge. Left eye exhibits no discharge. No scleral icterus. Neck: Neck supple. No JVD present. Cardiovascular: Irregular rate, irregular rhythm and normal heart sounds. Exam reveals no gallop and no friction rub. No murmur heard. Pulmonary/Chest: Effort normal and breath sounds normal. No stridor. No respiratory distress. He has no wheezes, no rales. He exhibits no tenderness. Abdominal: Soft. Bowel sounds are normal. No HSM percussed or palpated. There is no tenderness. There is no rebound and no guarding. Musculoskeletal: He exhibits no edema. He has painful flexion at left hip with drift, 0 IR, no drift on ankle dorsiflexion, has crutch use offloading left hip in ambulation. Neurological: He is alert and oriented to person, place, and time. He exhibits no resting or intentional tremors, dystonia or dysmetria. Skin: Skin is warm and dry. He is not diaphoretic. No pallor. Psychiatric: He has a normal mood and restricted affect. His behavior is cooperative. Lab Results Component Value Date WBC 7.2 03/23/2020 RBC 4.43 (L) 03/23/2020 HGB 15.0 03/23/2020 HCT 47.0 03/23/2020 MCV 106.1 (H) 03/23/2020 MCH 33.9 (H) 03/23/2020 MCHC 31.9 (L) 03/23/2020 PLATELET 272 03/23/2020 RDWCV 12.3 03/23/2020 Lab Results Component Value Date NA 138 03/23/2020 K 4.6 03/23/2020 CL 102 03/23/2020 CO2 26 03/23/2020 BUN 15 03/23/2020 CREATININE 1.37 03/23/2020 GLUCOSE 123 03/23/2020 CALCIUM 9.4 03/23/2020 ESTGFR 56 (L) 03/23/2020 Estimated Creatinine Clearance: 69.6 mL/min (based on SCr of 1.37 mg/dL). EKG (image reviewed): Atrial fibrillation Abnormal ECG No previous ECGs available Confirmed by MD Tosha, Baldomero Darby ([id number]) on 07/19/2019 8:59:35 PM Echocardiogram XRay - OA left hip with dysplastic appearance A/P 1. Preop examination 2. 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 Chronic atrial fibrillation 4. 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 He interrupted his Eliquis for his lumbar laminectomy earlier this year and tolerated that well. He had cardiology evaluation preoperatively for that surgery and I reviewed the note per Dr. Pantoja. He is taking the 50mg daily of metoprolol since that visit. He has no new cardiopulmonary symptoms to warrant further preoperative cardiac testing. He remains limited by his hip pain. He has remote TYRON diagnosis and has not impaired him despite opiate therapy and had recent lumbar laminectomy. Major Risk Factor per the Revised Cardiac Risk Index (Bold if present) - There is no history of CAD, CHF, CVA or TIA, DM2 on insulin, or a Creatinine >2 Risk diagnosis for MACE (major adverse cardiovascular event = Myocardial infarction, pulmonary edema, ventricular fibrillation, primary cardiac arrest, or complete heart block.) : Low <1% . The patient describes a functional status of 4METs and more (attends to self and home, goes up stairs as needed, does some weed whacking balancing on his crutch, did buy a ride on mower yesterday as he could no longer walk behind) and based on the ACC/AHA 2014 guideline no further cardiovascular testing is indicated. ARISCAT/CANET Score - estimates the risk of postoperative pulmonary complications as being low ~3.5%. Per the ACS NSQIP calculator I estimated the following. Patient instructions: Last dose of Eliquis on ThursdayApril 09. Take your metoprolol, gabapentin, Uloric the morning of surgery. RECOMMENDATION: Start Eliquis at 2.5mg po BID - [...] SBP<100 or HR<55 Hold losartan if SBP<120 Is this patient a candidate for expedited recovery after total joint replacement no Chronic opiate use, anticoagulation, RAPT is 06/23 implying likelihood of discharge home after shortstay in hospital. 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
--- OUTSIDE RECORDS SUMMARY | 2024-08-29 14:14 | XMS_ITS | Encounter Summary ---
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 [facility] [place] [address] Tophaceous gout; Vitamin D deficiency Social History Tobacco Use Types Packs/Day Years [...] Sign Reading Time Taken Comments Blood Pressure 130/78 01/25/2018 1:56 PM EDT Pulse 66 01/25/2018 1:56 PM EDT Temperature - - Respiratory Rate 18 01/25/2018 1:56 PM EDT Oxygen Saturation 100% 01/25/2018 1:56 PM EDT Inhaled Oxygen Concentration - - Weight 104.3 kg (230 lb) 01/25/2018 1:56 PM EDT Height 180.3 cm (5' 11) 01/25/2018 1:56 PM EDT Body Mass Index 32.08 01/25/2018 1:56 PM EDT documented in this encounter Progress Notes * Tequila Walker, OTR [employer] TRUCK DRIVER - 01/25/2018 2:30 PM EDT Rheumatology Outpatient Follow-up Note Pt [...] L side of his body was briefly paralyzed, has had full recovery. Current Outpatient Prescriptions: ??? ELIQUIS 5 mg Tablet, TAKE ONE [...] daily., Disp: 30 tablet, Rfl: 5 ??? zolpidem (AMBIEN) 10 mg tablet, Take 10 mg by mouth nightly as needed., Disp: , Rfl: ??? albuterol-ipratropium (COMBIVENT) 18-103 mcg/Actuation inhaler, , Disp: , Rfl: ??? HYDROcodone-acetaminophen (NORCO) 10-325 mg Tablet, as needed., Disp: , Rfl: ?? PAST MEDICAL HISTORY: [...] living with his partner. 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 ?? FAMILY HISTORY: ?? Mother - Unknown, alive at the age of 66. ?? Father - Prostate cancer, alive at the age of 68. ? ROS: No infections or fevers No rashes No CP No SOB or cough PHYSICAL EXAMINATION: BP 130/78 Pulse 66 Resp 18 Ht 180.3 cm (5' 11) Wt 104.3 kg (230 lb) SpO2 100% BMI 32.08 kg/m2?? General - Alert, co-operative, no apparent distress, oriented x 3. ?? HEENT - Conjunctiva pink and non-injected, no sclerae icterus or malar rash. ?? Heart - Regular rate and rhythm; normal S1 and S2; no murmurs, rubs, or gallops. ?? Lungs - Symmetric, no respiratory distress, clear to ascultation bilaterally. ?? Joints - no joint swelling, redness, warmth or tenderness. No deformities. Skin - Smooth and intact, no rash, no tophus deposition. ?? Psych - Normal affect. Neuro - sensory grossly intact? IMPRESSION and PLAN: ?? 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 No tophi on exam today. Will get uric acid level today. Labs in Jul were stable. HTN, will continue to get both BP meds refilled by his PCP going forward. Dr. Cam was prescribing losartan but has not done so in over a year. Vitamin D def, finished 50,000 IU doses and needs to start 2000 IU daily. F/U in 6 months TEQUILA WALKER, JOSE JUAN ? documented in this encounter Miscellaneous Notes * Addendum Note - Anat Junior - 01/25/2018 2:24 PM EDTAddended by: ANAT JUNIOR on: 01/25/2018 02:24 PM Modules accepted: Orders documented in this encounter Plan of Treatment Not on file documented as of this encounter Procedures Procedure Name Priority Date/Time Associated Diagnosis Comments URIC ACID Routine 01/25/2018 2:28 PM EDT Tophaceous gout documented in this encounter Results * Uric acid (01/25/2018 2:28 PM EDT) Uric Acid 3.8 3.5 - 8.5 mg/dL [facility] Blood specimen (specimen) 01/25/2018 2:28 PM EDT 01/25/2018 2:48 PM EDT Narrative Resulting Agency Comment Spec In Lab Tequila Walker APRN CHEMISTRY ORDER CLAY [facility] [place] [address] documented in this encounter Visit Diagnoses Diagnosis 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
--- OUTSIDE RECORDS SUMMARY | 2024-08-29 14:14 | XMS_ITS | Encounter Summary ---
[place] [address] Care Team Providers Care Plumbing Mechanic Name Role Phone Alek Esparza MD Primary Care Provider [phone] Reason for Visit * Reason Onset Date Comments Post Hospital Discharge 10/27/2019 Encounter Details Date Type Department Care Team (Late st Contact Info) Description 10/27/2019 [place] [phone] Arely Roblero RN Post Hospital Discharge Social History Tobacco Use Types Packs/Day Years [...] encounter Miscellaneous Notes * Telephone Encounter - Arely Roblero RN - 10/27/2019 2:42 PM EST Enoc Esteban 1960 59 y.o. [id number] F/U call s/p L4-5 hemilaminectomy & microdiscectomy on 10/25/[address] Madison Date of discharge: 10/26/2019 Date of call: 10/27/2019 Neuro: alert and oriented: yes Dizzy or lightheaded: denies Numbness/tingling/weakness: denies Ambulation: steady with crutches Incision: looks good, bruised, absorbable sutures Pain: in hip, and incision, taking Tylenol, Ibuprofen, Gabapentin, Flexeril, Hydrocodone three times a day with relief PO: eating and drinking well B&B: urinating ok, no BM yet-taking a stool softener Sleep: good Other: documented in this encounter Plan of Treatment Not on file documented as of this encounter Visit Diagnoses Not on filedocumented in this encounter Care Teams Plumbing Mechanic Relationship Specialty Start Date End Date Alek Esparza MD [address] [place] [phone] PCP - General 09/03/10 04/05/23 documented as of this encounter
--- OUTSIDE RECORDS SUMMARY | 2024-08-29 14:14 | XMS_ITS | Encounter Summary ---
Author Organization [facility] Address [facility] [place] [address] Care Team Providers Care Structural Steel Worker Helper Name Role Phone Alek Esparza MD Primary Care Provider [phone] Encounter Details Date Type Department Care Team (Latest Contact Info) Description 11/23/2019 4:02 PM EST - 11/23/2019 11:59 PM [facility] Hospital Encounter XRay at [address] [place] [phone] Deznel Madison MD [facility] [place] [address] Pain in left hip Discharge Disposition: Home Social History Tobacco Use [...] for Pain. 30 tablet 1 10/26/2019 04/13/2020 ibuprofen (ADVIL;MOTRIN) 800 mg Tablet TAKE ONE [...] 03/29/2015 04/13/2020 documented as of this encounter Plan of Treatment Not on file documented as of this encounter Procedures Procedure Name Priority Date/Time Associated Diagnosis Comments XR PELVIS AND HIP 2 VIEWS LEFT Routine 11/23/2019 4:11 PM EST Pain in left hip documented in this encounter Results * XR Pelvis and Hip 2 Views Left (11/23/2019 4:11 PM EST) Anatomical Region Laterality Modality Pelvis, Hip Left Digital Radiogra phy Impressions 11/23/2019 5:03 PM EST 1. Moderate arthropathy of the left hip. 2. Loss of the femoral head neck offset bilaterally, which can be seen with cam -type JOSH. Thank you for letting us participate in the care of this patient. For questions regarding this report, please contact the number below. ? Narrative 11/23/2019 5:03 PM EST EXAMINATION: XR PELVIS AND HIP 2 VIEWS LEFT CLINICAL HISTORY: Left hip pain TECHNIQUE: A frontal radiograph of the pelvis was obtained, along with AP and frog-leg lateral views of the left hip. COMPARISON: None FINDINGS: Moderate arthropathy of the left hip, characterized by joint space narrowing with subchondral sclerosis and cyst formation on both sides of the joint. There are marginal osteophytes on both sides of the joint. There is moderate narrowing of the right hip, with an os acetabulum. Loss of the femoral head neck offset bilaterally. Procedure Note Nai Khan MD - 11/23/2019 EXAMINATION: XR PELVIS AND HIP 2 VIEWS LEFT CLINICAL HISTORY: Left hip pain TECHNIQUE: A frontal radiograph of the pelvis was obtained, along with AP andfrog-leg lateral views of the left hip. COMPARISON: None FINDINGS: Moderate arthropathy of the left hip, characterized by joint spacenarrowing with subchondral sclerosis and cyst formation on both sides of the joint.There are marginal osteophytes on both sides of the joint. There is moderatenarrowing of the right hip, with an os acetabulum. Loss of the femoral head neckoffset bilaterally. IMPRESSION 1. Moderate arthropathy of the left hip. 2. Loss of the femoral head neck offset bilaterally, which can be seenwith cam -type JOSH. Thank you for letting us participate in the care of this patient. Forquestions regarding this report, please contact the number below. Denzel Madison MD IMG DX ORDERABLES documented in this encounter Visit Diagnoses Diagnosis Pain in left hip Pain in joint, pelvic region and thigh documented in this encounter Care Teams Structural Steel Worker Helper Relationship Specialty Start Date End Date Alek Esparza MD [address] [place] [phone] PCP - General 09/03/10 04/05/23 documented as of this encounter
--- OUTSIDE RECORDS SUMMARY | 2024-08-29 14:14 | XMS_ITS | Encounter Summary ---
[place] [address] Care Team Providers Care Rn Referral Name Role Phone Alek Esparza MD Primary Care Provider [phone] Reason for Visit * Reason Onset Date Comments Medication Refill 11/07/2019 Encounter Details Date Type Department Care Team (Late st Contact Info) Description 11/07/2019 Ref[place] [phone] Marcial Lake, RN Social History Tobacco Use [...] filedocumented in this encounter Care Teams Rn Referral Relationship Specialty Start Date End Date Alek Esparza MD [address] [place] [phone] PCP - General 09/03/10 04/05/23 documented as of this encounter
--- OUTSIDE RECORDS SUMMARY | 2024-08-29 14:14 | XMS_ITS | Encounter Summary ---
Author Organization [facility] Address [facility] [place] [address] Care Team Providers Care Seaman Name Role Phone Alek Esparza MD Primary Care Provider [phone] Reason for Visit * Consultation (GEREMIAS) - Closed Specialty Diagnoses / Procedures Referred By Contac t Referred To Contact Cardiology Diagnoses Chronic atrial fibrillation Will need cardiac clearance for surgery in near future and needs to establish for chronic care. Alek Esparza MD [address] [place] [phone] [facility] Card[facility] [address] [place] [phone] Referral ID Status Reason Start Date Expiration Date Visits Re quested Visits Authorized [id number] Closed 06/30/2019 06/29/2020 1 1 Encounter Details Date Type Department Care Team (Late st Contact Info) Description 07/19/2019 11:20 AM EDT Office Visit Cardiology at [address] [phone] Autumn Pantoja MD [facility] DR [place]IOLOG[place] [address] Atrial fibrillation, unspecified type Social History Tobacco [...] Time Taken Comments Blood Pressure 122/84 07/19/2019 11:11 AM EDT Pulse 102 07/19/2019 11:11 AM EDT irre gular Temperature - - Respiratory Rate - - Oxygen Saturation 97% 07/19/2019 11:11 AM EDT Inhaled Oxygen Concentration - - Weight 107 kg (236 lb) 07/19/2019 11:11 AM EDT Height 180.3 cm (5' 10.98) 07/19/2019 11:11 AM EDT Body Mass Index 32.93 07/19/2019 11:11 AM EDT documented in this encounter Patient Instructions * Patient Instructions* Autumn Pantoja MD - 07/19/2019 11:20 AM EDT Recommend increase metoprolol to 50 mg daily. (You can take two of the 25 mg tablets until you run out) There is no indication at this time for a statin or an aspirin. Around the time of your surgery, it is okay to hold eliquis for 48 hours before and start when yoursurgeons say to afterwards. I recommend taking no aspirin with your eliquis. documented in this encounter Progress Notes * Autumn Pantoja MD - 07/19/2019 11:20 AM EDT Images from the original note were not included. ? CARDIOVASCULAR MEDICINE Autumn Pantoja MD MPH Structural Interventional Cardiology [place] [phone] , #5 Overall clinical summary: ?? This is a 59 y.o. year old male referred by his PCP and surgeon for preoperative clearance prior tospine surgery. This is not yet planned but is in discussion. Impression: . Atrial fibrillation on Eliquis . Poor rate controlled atrial fibrillation heart rate 100 . Hypertension on metoprolol . Asymptomatic with 4 METS of activity (no chest pain or shortness of breath . Obstructive sleep apnea Based on the above impressions, proceed with surgical eval. Plan/Next steps: ?? This was the communication given to the patient in their AVS: Patient Instructions Recommend increase metoprolol to 50 mg daily. (You can take two of the 25 mg tablets until you run out) There is no indication at this time for a statin or an aspirin. Around the time of your surgery, it is okay to hold eliquis for 48 hours before and start when yoursurgeons say to afterwards. I recommend taking no aspirin with your eliquis. Recommend continued follow-up of his obstructive sleep apnea by the primary care provider. Given the patient's normal physical exam and no evidence of structural abnormalities on his EKG other than atrial fibrillation, I do not recommend that he requires an echocardiogram at this time. Hisatrial fibrillation is likely related to his history of hypertension, which is long-standing. If hewere to develop new symptoms or have any evidence of volume overload, I would recommend echocardiography. Brief summary of most relevant clinical history and exam, as well as plan, are listed above. Below are further details of today's visit. Present history: This patient is an 59 y.o. year old male with a history of hypertension and paroxysmal atrial fibrillation who presented to the clinic for preoperative clearance prior to spine surgery. During today's visit, they share that they are hopeful to have improvement in his chronic back painwhich is limited his ability to exercise as well as sleep at night. No tobacco. HTN for years, well controlled on losartan. No family history CAD. No symptoms of ischemia. Limited exercise tolerance due to back pain. Back pain is limiting his movement. He can walk through clinic without symptoms of CP or SOB. Pain shoots down his legs and he can't sleep. NYHA class A, CCS class 0. He works for [employer]. He arrives to the visit on his own. This patient reports *no symptoms of TIA/stroke (weakness, speech difficulty, visual loss), no syncope, no recent weight loss/weight gain, no chest pain, no history gi bleeding or black stools. All other systems are reviewed and are negative. Denies new medications, recent illness or recent hospitalization. The patient does not have a history of prior cardiac catheterization, stress test, or vascular stenting or surgery. No prior procedures in the chest. ROS Constitutional--Negative for fevers, chills, fatigue Cardiovascular--Negative for orthopnea, PND, for intermittent lower extremity edema Gastrointestinal--Negative for nausea without vomiting; negative for diarrhea, abdominal pain or blood in stool Pulmonary--negative for intermittent dyspnea on exertion, negative for cough or hemoptysis All other systems reviewed and are negative. Pertinent past history: Patient Active Problem List Diagnosis ??? Atrial fibrillation ??? Radiculopathy of cervical region ??? History of elbow surgery, right Dr. Howard, 10/16/2014 exc prox ulna entesophyte ??? Pain in right elbow ??? Fracture of left small finger, proximal, closed ??? HTN (hypertension) ??? Tophaceous gout ??? Hyperuricemia ??? Mild vitamin D deficiency ??? Asthma ??? TYRON (obstructive sleep apnea) PAST MEDICAL HISTORY: The patient has a has no past medical history on file.. The remainder of the PMH is summarized in the problem list above. PAST SURGICAL HISTORY: Past Surgical History: Procedure Laterality Date ??? PRO CLOSED TREAT TOE FX 02/08/2013 CLOSED TREATMENT FX PHALANX OR PHALANGES performed by Rohan Duarte MD at [facility] ??? PRO REMOVAL OF ELBOW BURSA Right 10/16/2014 EXCISION OF OLECRANON BURSA performed by Anupama Howard MD at [facility] SOCIAL HISTORY: Reviewed and updated as appropriate in the medical record. Patient reports that he has never smoked. He has never used smokeless tobacco. He reports that he drinks alcohol. He reportsthat he has current or past drug history. Drug: Marijuana. FAMILY HISTORY: The patient's family history includes Cancer in his father. MEDICATIONS: Current Outpatient Medications Medication Sig Dispense Refill ??? VITAMIN D 50,000 unit Capsule Take 50,000 Units by mouth every 14 days. 3 ??? ELIQUIS 5 mg Tablet TAKE ONE TABLET BY MOUTH TWICE A DAY 6 ??? metoprolol succinate (TOPROL-XL) 25 mg Tablet Sustained Release 24 hr TAKE ONE TABLET BY MOUTH EVERY DAY 6 ??? VIAGRA 100 mg Tablet TAKE 1 TABLET BY MOUTH DAILY NEEDED MAX OF 1 TABLET IN 24 HOURS 12 ??? losartan (COZAAR) 50 mg Tablet Take 1 tablet by mouth daily. 30 tablet 5 ??? HYDROcodone-acetaminophen (NORCO) 10-325 mg Tablet as needed. ??? zolpidem (AMBIEN) 10 mg tablet Take 10 mg by mouth nightly as needed. ??? albuterol-ipratropium (COMBIVENT) 18-103 mcg/Actuation inhaler (Patient taking differently: prn) ??? ibuprofen (ADVIL;MOTRIN) 800 mg Tablet TAKE ONE TABLET BY MOUTH THREE TIMES A DAY WITH FOOD NEEDED 3 ??? predniSONE (DELTASONE) 10 mg Tablet ??? ULORIC 80 mg Tablet Take 1 tablet by mouth daily (Patient taking differently: Take 40 mg by mouth daily. Take 1 tablet by mouth daily) 90 tablet 4 No current facility-administered medications for this visit. ALLERGIES: Reviewed and updated as appropriate in the medical record: Allopurinol Review of systems: Please see the HPI for pertinent positives and negatives. The remainder of the ROS was reviewed and is negative. PHYSICAL EXAMINATION: Vitals: Wt Readings from Last 3 Encounters: 07/19/19 107 kg (236 lb) 07/26/18 105.2 kg (232 lb) 01/25/18 104.3 kg (230 lb) Temp Readings from Last 3 Encounters: 07/26/18 37 ??C (98.6 ??F) (Oral) 05/29/17 36.7 ??C (98.1 ??F) (Oral) 03/31/16 37 ??C (98.6 ??F) (Oral) BP Readings from Last 3 Encounters: 07/19/19 122/84 07/26/18 122/84 01/25/18 130/78 Pulse Readings from Last 3 Encounters: 07/19/19 (!) 102 07/26/18 90 01/25/18 66 Comprehensive cardiovascular exam: Constitutional: The patient is bright, cheerful and without complaints. Psych: They are able to relay the details of their medical course and future planning with ease, and are oriented. There is not a suggestion of cognitive decline or memory issues or abnormal mood. Eyes: no xanthelasma or reddening of conjunctiva ENMT: atraumatic, unremarkable dentition, oropharynx clear with moist mucus membranes and no mucosal ulcerations Neck: JVP is easily seen with the patient sitting upright and is estimated at less than 10 cm water Cardiovascular: Heart rhythm is regular. PMI is palpated and is not displaced; there is no RV lift.S1 S2 are well heard, and there is no systolic murmur; no diastolic murmur, nor rubs or gallops. Peripheral pulses are felt and are 2+ (radial). Extremities: No stasis dermatitis or open ulcers Respiratory: Clear to auscultation bilaterally; no labored breathing Abdomen (GI): abd is soft, NT, ND. Musculoskeletal: the patient has no difficulty arising from a chair and has no significant kyphosis Skin: there are no visible lesions or rashes and on palpation, there is no pitting edema. Neuro: there are no gross neurologic deficits- the patient can move all 4 limbs and has normal speech. There is no facial droop. Neuro: there are no gross neurologic deficits- the patient can move all 4 limbs and has normal speech. There is no facial droop. TESTING: I have reviewed the pertinent outside records, laboratory data, and imaging studies. I personally reviewed the images and developed my own interpretation of the ECG. Pertinent results for this evaluation include: Labs (including hgb, plt, INR, Cr, lipids if available): Lab Results Component Value Date WBC 10.8 (H) 07/20/2017 HGB 17.4 (H) 07/20/2017 HCT 49.5 (H) 07/20/2017 PLATELET 282 07/20/2017 ALT 26 07/20/2017 AST 28 07/20/2017 NA 139 07/20/2017 K 4.3 07/20/2017 CL 100 07/20/2017 CREATININE 1.31 07/20/2017 BUN 8 (L) 07/20/2017 CO2 27 07/20/2017 TSH 1.46 03/15/2013 ECG: I personally reviewed and interpret it to show atrial fibrillation with rapid ventricular response heart rate of 100. No evidence of prior infarct. No signs of ischemia. There is no chest x-ray or echocardiogram to review. Plan: as described above. I wrote to multiple other health care providers about the recommended plan. Note that this visit was 45 minutes in length of face to face time, of which greater than 30 min was spent in counseling using a shared decision-making approach to decide on statin therapy as well asaspirin. For referring providers: Thank you for requesting this consultation. For questions, please feel free to contact me: [phone] #5 (pathology secretary Tarun Iglesias, and he will have me paged) or [email or web address]. Enoc Esteban 07/19/2019 Referring Providers: MD Vilma Melo David, MD [address] [place] [address] AUTUMN PANTOJA MD 07/19/2019 TESTING: Recent Results (from the past 72 hour(s)) EKG 12 Lead Result Value Ref Range Ventricular rate 100 BPM Atrial Rate 288 BPM QRS Duration 70 ms Q-T Interval 314 ms QTC Calculated (Bezet) 405 ms Calculated R [place] 42 degrees Calculated T [place] 30 degrees INTERPRETATION Atrial fibrillation Abnormal ECG No previous ECGs available CC: Alek Esparza MD documented in this encounter Plan of Treatment Not on file documented as of this encounter Procedures Procedure Name Priority Date/Time Associated Diagnosis Comments EKG 12-LEAD Routine 07/19/2019 11:31 AM EDT Atrial fibrillation, unspecified type documented in this encounter Results * EKG 12 Lead (07/19/2019 11:31 AM EDT) Ventricular rate 100 BPM MUSE SYSTEM Atrial Rate 288 BPM MUSE SYSTEM QRS Duration 70 ms MUSE SYSTEM Q-T Interval 314 ms MUSE SYSTEM QTC Calculated (Bezet) 405 ms MUSE SYSTEM Calculated R [place] 42 degrees MUSE SYSTEM Calculated T [place] 30 degrees MUSE SYSTEM INTERPRETATION Atrial fibrillation Abnormal ECG No previous ECGs available Confirmed by MD Tosha, Baldomero Darby ([id number]) on 07/19/2019 8:59:35 PM MUSE SYSTEM 07/19/2019 11:3 1 AM EDT 07/19/2019 8:59 PM EDT Autumn Pantoja MD ECG ORDERABLES MUSE SYSTEM documented in this encounter Visit Diagnoses Diagnosis Atrial fibrillation, unspecified type documented in this encounter Care Teams Seaman Relationship Specialty Start Date End Date Alek Esparza MD [address] [place] [phone] PCP - General 09/03/10 04/05/23 documented as of this encounter
--- OUTSIDE RECORDS SUMMARY | 2024-08-29 14:14 | XMS_ITS | Encounter Summary ---
Author Organization [facility] Address [facility] [place] [address] Care Team Providers Care Granite Cutter Apprentice Name Role Phone Alek Esparza MD Primary Care Provider [phone] Encounter Details Date Type Department Care Team (Late st Contact Info) Description 04/29/2019 Ancillary Procedure Radiology [facility] [place] [phone] Joao Perdue MD [facility] [place] [address] Social History Tobacco Use Types Packs/Day Years [...] Associated Diagnosis Comments FILM LIBRARY STORAGE ONLY MR SPINE Routine 04/29/2019 12:00 AM EDT documented in this encounter Results * Film Library- Storage Only MR Spine (04/29/2019 12:00 AM EDT) Narrative ARLYN DALE - 07/01/2019 9:26 PM EDT This exam is auto-finalizing. It's purpose is for storage only. Joao Perdue MD [facility] [place] LIBRARY ORD ERABLES RAD [place], [place] documented in this encounter Visit Diagnoses Not on filedocumented in this encounter Care Teams Granite Cutter Apprentice Relationship Specialty Start Date End Date Alek Esparza MD [address] [place] [phone] PCP - General 09/03/10 04/05/23 documented as of this encounter
--- OUTSIDE RECORDS SUMMARY | 2024-08-29 14:14 | XMS_ITS | Encounter Summary ---
Author Organization [facility] Address [facility] [place] [address] Care Team Providers Care Pesticide Control Inspector Name Role Phone Alek Esparza MD Primary Care Provider [phone] Encounter Details Date Type Department Care Team (Late st Contact Info) Description 01/14/2019 Ancillary Procedure Radiology Library [place] [phone] Joao Perdue MD [facility] [place] [address] Social History Tobacco Use Types Packs/Day Years [...] Associated Diagnosis Comments FILM LIBRARY STORAGE ONLY DX SPINE Routine 01/14/2019 12:00 AM EDT documented in this encounter Results * Film Library- Storage Only DX Spine (01/14/2019 12:00 AM EDT) Narrative ARLYN DALE - 07/01/2019 9:27 PM EDT This exam is auto-finalizing. It's purpose is for storage only. Joao Perdue MD [facility] [place] LIBRARY ORD ERABLES RAD [place], [place] documented in this encounter Visit Diagnoses Not on filedocumented in this encounter Care Teams Pesticide Control Inspector Relationship Specialty Start Date End Date Alek Esparza MD [address] [place] [phone] PCP - General 09/03/10 04/05/23 documented as of this encounter
--- OUTSIDE RECORDS SUMMARY | 2024-08-29 14:14 | XMS_ITS | Encounter Summary ---
Author Organization [facility] Address [facility] [place] [address] Care Team Providers Care Otorhinolaryngologist Name Role Phone Alek Esparza MD Primary Care Provider [phone] Reason for Visit * Auth/Cert Specialty Diagnoses / Procedures Referred By Debra sands Referred To Contact Diagnoses Left Hip DJD Procedures PRO TOTAL HIP ARTHROPLASTY TOTAL HIP ARTHROPLASTY, ANTERIOR APPROACH (WRVU 20.72) Referral ID Status Reason Start Date Expiration Date Visits Re quested Visits Authorized [id number] 1 1 Encounter Details Date Type Department Care Team (Late st Contact Info) Description 04/12/2020 2:18 PM EDT Anesthesia Event [place] [id number] Vidal Kline MD [facility] [place] [address] Anesthesia Record Procedure Summary Procedure Name Responsible Anesthesiologist Anesthesia Start Time Anesthesia Stop Time TOTAL HIP ARTHROPLASTY, ANTERIOR APPROACH (WRVU 19.6) (Left: Hip) Vidal Kline MD 04/12/20 1418 04/12/20 1649 Events Date Time Event Comment 04/12/2020 1333 1418 AN Verify 1418 Start 1418 An Start Data 1422 An Induction 1425 An Intubation 1426 Anesthesia Ready 1449 Procedure Start 1519 Break/Relief In I assumed ca re for Break Relief before which we: 1. Identified the patient 2. Identified the responsible provider(s) 3. Reviewed the pertinent medical history 4. Discussed the surgical plan and course 5. Reviewed intra-op anesthesia management and issues during anesthesia 6. Set expectations for the relief (and/or post-procedure) period 7. Allowed opportunity for questions and acknowledgement of understanding Kelin María Elena Francois, SECURITY MANAGEMENT SPECIALIST 1533 Break/Relief Out 1635 Extubation/LMA Out Criteria met, extubated to O2. Pt complains of numb right foot 1641 an stop data 1645 Recovery or ICU Handoff Ramandeep ent care was transferred to the destination unit staff after review of the patient's medical history, current anesthetic/surgical status and plan, according to the Provider Handoff Checklist. 1649 Stop Pt alert and ta lking in PACU, verbalizes right foot improving, no longer numb --> pins and needles Report to RN Meds Name Total Midazolam 2 mg IV Lidocaine 100 mg Propofol 270 mg Rocuronium 80 mg Ondansetron 4 mg Dexamethasone 8 mg Neostigmine 5 mg Glycopyrrolate 0.8 mg ceFAZolin (ANCEF) 3g in dextrose 5% 100 mL 2 g Succinylcholine 160 mg tranexamic acid (CYKLOKAPRON) 1,674 mg i n sodium chloride 0.9% 116.74 mL 1,674 mg HYDROmorphone 2 mg meTOPROLOL (LOPRESSOR) injection 5 mg Dexmedetomidine 8 mcg Lactated Ringers 1,000 mL * Agents Name O2 Air N2O Sevoflurane (et) O2 Auxiliary Flowmeter 1 * Blood No blood administrations on file. [...] Clifford RN 07/17/21 1650 by Freddie Catalan Incision 10/25/19; 1342; back ; 06/09/22 ([facility] cleanup utility RA#[id number]); 1715 (LDA cleanup utility RA#[id number]) 10/25/19 1342 by Kaylan Veloz RN 06/09/22 1715 by Maritza Burnham (RETIRED) Peripheral IV Line - Single Lumen 04/12/20; 1401; metacarpal vein (top of hand), left; [id number] catheter system; 18 gauge, 1 in length; distraction, intradermal injection, tolerated well; 07/17/21 (LDA Cleanup utility RA#[id number]); 165 (LDA Cleanup utility RA#[id number]) 04/12/20 1401 by Araseli Son RN 07/17/21 1650 by Freddie Catalan ETT Mask Ventilation: No t Attempted (0); ETT Type: Cuffed; ETT Size: 7.5 mm; Indirect: Video; Notes: Asleep, Pre-O2, Stylette; Attempts: 1; Laryngoscopy Grade: 1; ETT Placement Verified By: Auscultation, Capnometry, Visual; Secured at Teeth: 23 cm; Inserted by: Sid Mae; Removal Date: 04/12/20; Removal Time: 1635 04/12/20 1425 by Daria Mae, SECURITY MANAGEMENT SPECIALIST 04/12/20 1635 by Daria Mae, SECURITY MANAGEMENT SPECIALIST Incision 04/12/20; 1449; hip; 06/09/22 (LDA cleanup utility RA#[id number]); 1715 (LDA cleanup utility RA#[id number]) 04/12/20 1449 by Sarita Hubbard RN 06/09/22 1715 by Maritza Burnham documented [...] OR Notes * Anesthesia Postprocedure Evaluation - Vidal Kline MD - 04/12/2020 8:28 PM EDT Department of Anesthesiology Post-procedure Note Patient: Enoc Esteban Procedure Summary Date: 04/12/20 Room / Location: [address] MAIN OR Anesthesia Start: 1418 Anesthesia Stop: 1648 Procedures: TOTAL HIP ARTHROPLASTY, ANTERIOR APPROACH (WRVU 20.72) (Left Hip) MODIFIER,AMIS P HIP STEM,MEDACTA (N/A ) MODIFIER,MPACT CUP,MEDACTA (N/A ) Diagnosis: (Left Hip DJD) Surgeon: Isidoro Lay MD Responsible Provider: Vidal Kline MD Anesthesia Type: general ASA Status: 3 All Anesthesia Providers: Anesthesiologist: Vidal Kline MD SECURITY MANAGEMENT SPECIALIST: Daria Mae CRNA Vitals Value Taken Time BP 124/95 04/12/2020 8:15 PM Temp 36.2 ??C (97.2 ??F) 04/12/2020 4:45 PM Pulse 81 04/12/2020 8:22 PM Resp 14 04/12/2020 8:22 PM SpO2 96 % 04/12/2020 8:27 PM Pain Level 8 04/12/2020 7:31 PM Vitals shown include unvalidated device data. Patient Location: PACU/[facility] Level of Consciousness: Awake and Alert Pain Management: Satisfactory Analgesia PONV: None Cardiovascular Status: Hemodynamically Stable Respiratory Status: Stable Respiratory Status Postoperative Fluid Status: Intravascular EUvolemia Possible Anesthetic Complications: NONE apparent at time of evaluation Final Primary Anesthesia Type: General (The anesthetic type performed was the same as planned.) Comments: * Anesthesia Preprocedure Evaluation - Daria Mae CRNA - 04/12/2020 11:23 AM EDT Images from the original note were not included. Pre-Anesthesia Evaluation for: Enoc Esteban a 60 y.o. male. Procedure(s): TOTAL HIP ARTHROPLASTY, ANTERIOR APPROACH (WRVU 20.72) MODIFIER,AMIS P HIP STEM,MEDACTA MODIFIER,MPACT CUP,MEDACTA Patient Active Problem List Diagnosis ??? Obesity (BMI 30.0-34.9) ??? History of cervical spinal surgery ??? History of lumbar surgery ??? Lumbar radiculopathy ??? Atrial fibrillation ??? Radiculopathy of cervical region ??? HTN (hypertension) ??? Tophaceous gout ??? Hyperuricemia ??? Mild vitamin D deficiency ??? Moderate asthma ??? TYRON (obstructive sleep apnea) Past Medical History: Diagnosis Date ??? Antiplatelet [...] Irregular heart beat Afib. Takes Eliquis ??? 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 Moderate asthma ??? Pain in right elbow 06/13/2014 ??? Syncope Gets light-headed occasionally. No falls, just needs to sit down until resolved. Past Surgical History: Procedure Laterality Date ??? PRO CLOSED TREAT TOE FX 02/08/2013 CLOSED TREATMENT FX PHALANX OR PHALANGES performed by Rohan Duarte MD at [facility] ??? PRO LAMINOTOMY, LUMBAR DISK, 1 INTRSP N/A 10/25/2019 LAMINOTOMY, DECOMPRESSION, FORAMINOTOMY, LUMBAR (WRVU 13.18) [facility] ??? PRO MICROSURG TECHNIQUES, REQ OPER MICROSCOPE N/A 10/25/2019 MICROSCOPE USE (WRVU 3.46) performed by Denzel Madison MD at [facility] OR ??? PRO REMOVAL OF ELBOW BURSA Right 10/16/2014 EXCISION OF OLECRANON BURSA performed by Anupama Howard MD at [facility] Social History Tobacco Use ??? Smoking status: Never Smoker ??? Smokeless tobacco: Never Used Substance Use Topics ??? Alcohol use: Yes Alcohol/week: 16.0 - 23.0 standard drinks Types: 14 - 21 Cans of beer, 2 Standard drinks or equivalent per week Comment: 2-3 drinks daily Social History Substance and Sexual Activity Drug Use Yes ??? Frequency: 7.0 times per week ??? Types: Marijuana Comment: non medical.. uses for sleep / pain Allergies Allergen Reactions ??? Allopurinol Rash Medications: MAR and/or home medications have been reviewed. Physical Exam: There were no vitals filed for this visit. There is no height or weight on file to calculate BMI. Airway Assessment: Mallampati: II TM distance: >3 FB Neck ROM: full Cardiovascular Assessment: Rhythm: irregular Rate: normal Pulmonary Assessment: breath sounds clear to auscultation Dental Assessment: Misc Assessment: Patient is wearing No contact(s). Anesthesia Plan: ASA 3 general, with a(n) intravenous induction Region - Other Informed Consent: Anesthetic plan and risks discussed with patient and spouse. Attending NOTE Brief HPI: 60 y.o. with LEFT hip DJD to OR for SLIM Diagnosis ??? HTN (hypertension) ??? Tophaceous gout ??? Hyperuricemia ??? Mild vitamin D deficiency ??? Moderate asthma ??? TYRON (obstructive sleep apnea) ??? Radiculopathy of cervical region ??? Atrial fibrillation ??? Lumbar radiculopathy ??? Obesity (BMI 30.0-34.9) ??? History of cervical spinal surgery ??? History of lumbar surgery Past Medical History: Diagnosis Date ??? Antiplatelet [...] right Dr. Howard, 10/16/2014 exc prox caroline balderasophyte 11/24/2014 ??? Irregular heart beat Afib. Takes Eliquis ??? correction current use of opiate analgesic Dilaudid for back pain ??? Moderate asthma ??? Pain in right elbow 06/13/2014 ??? Syncope Gets light-headed occasionally. No falls, just needs to sit down until resolved. BP Readings from Last 3 Encounters: 04/04/20 117/77 03/23/20 105/73 12/14/19 124/83 METS:>4 Cardiac Symptoms: denies EKG: afib ECHO: none LABS: Lab Results Component Value Date HGB 15.0 03/23/2020 PLATELET 272 03/23/2020 INR 1.1 03/23/2020 NA 138 03/23/2020 K 4.6 03/23/2020 CREATININE 1.37 03/23/2020 Type and Screen: No results found for: ABORH Past anesthetic problems: denies Previous airway notes (on eDH): MV w/ OA; CMAC +; hx of grade 3 w/ MAC4, NPO status: Reviewed and appropriate Anesthetic Plan: GA; CMAC in room Monitoring: Standard ASA monitors PAT Clinic Note documented in this encounter Plan of Treatment Not on file documented as of this encounter Visit Diagnoses Not on filedocumented in this encounter Administered Medications Inactive Administered Medications - up to 3 most recent administrations Medication Order MAR Action Action Date Dose Rate Site ceFAZolin (ANCEF) 3g in dextrose 5% 100 mL 3 g, Intravenous, EVERY 3 HOURS, 1 dose, First dose on Leana 04/12/20 at 1400, Administer over 30 Minutes, Redose after 3 hours., Intra-Operative (Intra-Procedure), Indication for (Active or Suspected): Prophylaxis Given 04/12/2020 2:29 PM EDT 2 g dexamethasone (Decadron) injection PRN, Starting on Leana 7 at 1437, Until Leana 7 at 1649, Anesthesia Intra-op, Routine Given 04/12/2020 2:37 PM EDT 8 mg dexmedetomidine (PRECEDEX) injection PRN, Starting on Leana 7 at 1607, Until Leana 7 at 1649, Anesthesia Intra-op, Routine Given 04/12/2020 4:07 PM EDT 8 mcg glycopyrrolate (ROBINUL) multi-dose injection PRN, Starting on Leana 7 at 1608, Until Leana 7 at 1649, Anesthesia Intra-op, Routine Given 04/12/2020 4:08 PM EDT 0.8 mg HYDROmorphone (DILAUDID) injection PRN, Starting on Leana 04/12/20 at 1445, Until Leana 7 at 1649, Anesthesia Intra-op, Routine Given 04/12/2020 4:42 PM EDT 0.2 mg Given 04/12/2020 4:38 PM EDT 0.4 mg Given 04/12/2020 4:22 PM EDT 0.2 mg lactated ringers infusion CONTINUOUS PRN, Starting on Leana 04/12/20 at 1418, Until Leana 7 at 1649, Anesthesia Intra-op New Bag 04/12/2020 4:29 PM ED T New Bag 04/12/2020 2:18 PM EDT lidocaine (PF) (XYLOCAINE) 100 mg/5 mL (2 %) injection PRN, Starting on Leana 7 at 1422, Until Leana 7 at 1649, Anesthesia Intra-op, Routine Given 04/12/2020 2:22 PM EDT 100 mg metoprolol (LOPRESSOR) injection PRN, Starting on Leana 7 at 1453, Until Leana 7 at 1649, Anesthesia Intra-op, Routine Given 04/12/2020 4:06 PM EDT 1 mg Given 04/12/2020 3:45 PM EDT 1 mg Given 04/12/2020 3:23 PM EDT 1 mg midazolam (PF) (VERSED) multi-dose injection PRN, Starting on Leana 7 at 1418, Until Leana 720 at 1649, Anesthesia Intra-op, Routine Given 04/12/2020 2:18 PM EDT 2 mg neostigmine (BLOXIVERZ) injection PRN, Starting on Leana 7 at 1608, Until Leana 7 at 1649, Anesthesia Intra-op, Routine Given 04/12/2020 4:08 PM EDT 5 mg ondansetron (ZOFRAN) injection PRN, Starting on Leana 7 at 1603, Until Leana 7 at 1649, Anesthesia Intra-op, Routine Given 04/12/2020 4:03 PM EDT 4 mg propofol (DIPRIVAN) 10 mg/mL bolus injection (Anesthesia) PRN, Starting on Leana 7 at 1422, Until Leana 7 at 1649, Anesthesia Intra-op Given 04/12/2020 2:22 PM EDT 270 mg rocuronium (ZEMURON) multi-dose injection PRN, Starting on Leana 04/12/20 at 1422, Until Leana 7 at 1649, Anesthesia Intra-op, Routine Given 04/12/2020 3:48 PM EDT 10 mg Given 04/12/2020 3:15 PM EDT 20 mg Given 04/12/2020 2:41 PM EDT 40 mg succinylcholine chloride (Quelicin) injection PRN, Starting on Leana 04/12/20 at 1422, Until Leana 04/12/20 at 1649, Anesthesia Intra-op, Routine Given 04/12/2020 2:22 PM EDT 160 mg tranexamic acid (CYKLOKAPRON) 1,674 mg in sodium chloride 0.9% 116.74 mL 1,674 mg (15 mg/kg/dose ? 111.6 kg), Intravenous, ONCE, 1 dose, On Leana 04/12/20 at 1400, Administer over 30 Minutes, Day of Surgery (Day of Procedure) New Bag 04/12/2020 2:18 PM EDT 1,674 mg documented in this encounter Care Teams Otorhinolaryngologist Relationship Specialty Start Date End Date Alek Esparza MD [address] [place] [phone] PCP - General 09/03/10 04/05/23 documented as of this encounter
--- OUTSIDE RECORDS SUMMARY | 2024-08-29 14:14 | XMS_ITS | Encounter Summary ---
Author Organization [facility] Address [facility] [place] [address] Care Team Providers Care Edi Programmer Name Role Phone Alek Esparza MD Primary Care Provider [phone] Encounter Details Date Type Department Care Team (Latest Contact Info) Description 07/27/2019 4:47 PM EDT - 07/27/2019 11:59 PM EDT Hospital Encounter XRay at [address] [place] [address] Denzel Madison MD [facility] [place] [address] Herniation of lumbar intervertebral disc with radiculopathy Discharge Disposition: Home Social History Tobacco Use [...] Sig Dispensed Refills Start Date End Date VITAMIN D 50,000 unit Capsule Take 50,000 [...] 10 mg by mouth nightly as needed. ibuprofen (ADVIL;MOTRIN) 800 mg Tablet TAKE ONE TABLET BY MOUTH THREE TIMES A DAY WITH FOOD NEEDED 3 07/12/2019 04/13/2020 gabapentin (NEURONTIN) 100 mg Capsule Take 1 capsule three times daily x7 days, then take 2 capsules three times daily x7 days, then take 3 capsules three times daily 90 capsule 12 07/19/2019 01/30/2021 methylPREDNISolone (MEDROL DOSPACK) 4 mg Tablets, Dose Pack Use as directed on product package. 21 tablet 07/19/2019 10/26/2019 ELIQUIS 5 mg Tablet TAKE ONE TABLET BY MOUTH TWICE A DAY 6 01/19/2018 10/26/2019 HYDROcodone-acetaminop hen (NORCO) 10-325 mg Tablet Take 2 tablets by mouth every 8 hours as needed. 03/29/2015 04/13/2020 documented as of this encounter Plan of Treatment Not on file documented as of this encounter Procedures Procedure Name Priority Date/Time Associated Diagnosis Comments XR LUMBAR SPINE 2 OR 3 VIEWS Routine 07/27/2019 5:04 PM EDT Herniation of lumbar intervertebral disc with radiculopathy documented in this encounter Results * XR Lumbar Spine [...] please contact the number below. ? Narrative 07/27/2019 5:10 PM EDT EXAMINATION: XR [...] region documented in this encounter Care Teams Edi Programmer Relationship Specialty Start Date End Date Alek Esparza MD [address] [place] [phone] PCP - General 09/03/10 04/05/23 documented as of this encounter
--- OUTSIDE RECORDS SUMMARY | 2024-08-29 14:15 | XMS_ITS | Encounter Summary ---
Author Organization [facility] Address [facility] [place] [address] Care Team Providers Care District Resource Officer Name Role Phone Alek Esparza MD Primary Care Provider [phone] Encounter Details Date Type Department Care Team (Late st Contact Info) Description 03/20/2014 Orders [place] [address] Anupama Howard MD [facility] [place] [address] Pain in right elbow (Primary Dx) Social History Tobacco Use Types Packs/Day Years Used Date Smoking Tobacco: Never Smokeless Tobacco: Never Alcohol Use Standard Drinks/Week Comments Yes 15 (1 standard drink = 0.6 oz pu re alcohol) Sex and Gender Information Value Date Recorded Sex Assigned at Not on file Gender Identity Not on file Sexual Orientation Not on file documented as of this encounter Plan of Treatment Not on file documented as of this encounter Results * XR elbow 3 view complete (06/13/2014 2:18 PM EDT) Anatomical Region Laterality Modality Elbow N/A Radiographic Caro ging 06/13/2014 2:18 PM EDT Narrative 06/13/2014 3:34 PM EDT Examination ELBOW 3 VIEW COMPLETE/RIGHT Clinical History 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 Technique 3 views of the right elbow. ?? Findings 14 mm bone spur/ enthesophyte emanating from the olecranon, as before, with decreased surrounding soft tissue opacity. Osseous structures are normally aligned. ??No joint effusion is seen. Impression Olecranon bone spur/ enthesophyte, as before, with decreased surrounding soft tissue swelling. No other interval findings. 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 Technique 3 views of the right elbow. Findings 14 mm bone spur/ enthesophyte emanating from the olecranon, as before,with decreased surrounding soft tissue opacity. Osseous structures are normally aligned. No joint effusion is seen. Impression Olecranon bone spur/ enthesophyte, as before, with decreased surroundingsoft tissue swelling. No other interval findings. Anupama Howard MD IMG DX ORDERABLES documented in this encounter Visit Diagnoses Diagnosis Pain in right elbow- Primary Pain in joint, upper arm Pain in right elbow Pain in joint, upper arm documented in this encounter Care Teams District Resource Officer Relationship Specialty Start Date End Date Alek Esparza MD [address] [place] [phone] PCP - General 09/03/10 04/05/23 documented as of this encounter
--- OUTSIDE RECORDS SUMMARY | 2024-08-29 14:15 | XMS_ITS | Encounter Summary ---
Author Organization [facility] Address [facility] [place] [address] Care Team Providers Care Medical Review Specialist Name Role Phone Alek Esparza MD Primary Care Provider [phone] Reason for Visit * Reason Comments Follow-up Encounter Details Date Type Department Care Team (Late st Contact Info) Description 09/24/2015 8:25 AM EST [place] [phone] Alvaro Cam MD [facility] [place] [address] Acute idiopathic gout of right foot; Hyperuricemia; Vitamin D deficiency Social History Tobacco Use [...] Sign Reading Time Taken Comments Blood Pressure 112/64 09/24/2015 8:25 AM EST Pulse 87 09/24/2015 8:25 AM EST Temperature 36.4 ??C (97.6 ??F) 09/24/2015 8:25 AM ES T Respiratory Rate - - Oxygen Saturation 98% 09/24/2015 8:25 AM EST Inhaled Oxygen Concentration - - Weight 105.7 kg (233 lb) 09/24/2015 8:25 AM EST Height 180.3 cm (5' 11) 09/24/2015 8:25 AM EST Body Mass Index 32.5 09/24/2015 8:25 AM EST documented in this encounter Patient Instructions * Patient Instructions* Alvaro Cam MD - 09/24/2015 1:17 PM EST 1) Continue daily febuxostat, 80 mg for now. 2) Continue daily losartan, 50 mg. 3) Check labs today. 4) Return to follow up in 6 months. documented in this encounter Progress Notes * Alvaro Cam MD - 09/24/2015 8:37 AM EST REASON FOR VISIT: Follow up for tophaceous gout and hyperuricemia. INTERVAL HISTORY: The pt was a 55-year-old male, who returned for a follow up of tophaceous gout and hyperuricemia. The pt noted that since his last visit on April 09, 2015, he had one episode of acute gouty arthritis in his right foot in early April 2015. He subsequently used a short course of daily prednisone for symptomatic control. He also resumed daily febuxostat, 80 mg for symptomatic control of his hyperuricemia. His acute joint pain and swelling was completely resolved within a few days after he used prednisone and febuxostat. He had no recurrent gouty arthritis since then. He tolerated febuxostat without any fever, chest pain, dyspnea, nausea, dysuria, rash, blood clots, polydipsia, dizziness, or mood change. Laboratory studies obtained after his last visit showed that his uric acid level had increased to 9.2. PAST MEDICAL HISTORY: Hypertension Tophaceous gout Hyperuricemia Moderate vitamin D deficiency S/p excision of right olecranon bursa (10/2014) S/p excision of right proximal ulnar enthesophyte (10/2014) S/p repair of right distal triceps tendon (10/2014) Asthma Lafleur's lung Obstructive sleep apnea S/p midshaft fracture of left 5th proximal phalanx, s/p closed reduction and percutaneous pinning (01/2013) S/p bilateral carpal tunnel S/p right femur fracture, s/p ORIF S/p ankle fracture S/p anterior cervical fusion with anterior cervical diskectomy MEDICATIONS: I reviewed pt's medication entries on electronic record. ALLERGIES: NKDA SOCIAL HISTORY: Alcohol: Regular beer use on weekend. Pt denied any use of tobacco products. Marijuana use. He was with the same female partner for 24 years, with two children. He was currently living with his partner. 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 FAMILY HISTORY: Mother - Unknown, alive at the age of 66. Father - Prostate cancer, alive at the age of 68. PHYSICAL EXAMINATION: Vitals 09/24/2015 SYSTOLIC 112 DIASTOLIC 64 PULSE 87 TEMPERATURE 97.6 Height (Prydeinig) 5' 11 Height (Metric) 180.3 cm Weight (Prydeinig) 233 lbs Weight (Metric) 105.688 kg BODY MASS INDEX 32.51 kg/m2 Pulse Oximetry 98 General - Alert, co-operative, no apparent distress, oriented x 3. HEENT - Conjunctiva pink, no sclerae icterus or malar rash. Heart - Regular rate and rhythm; normal S1 and S2; no murmurs, rubs, or gallops. Lungs - Symmetric, no respiratory distress, clear to ascultation bilaterally. Abdomen - Soft non-tender, non-distended, bowel sound present. Extremities - Upper extremities: FROM of all joints; + bilateral Dupuytren's contracture in both palms, which are non-tender on palpation; no joint tenderness on palpation; no signs of synovitis, soft tissue swelling, or joint effusion; no clubbing, cyanosis, or edema. Skin - Smooth and intact, no rash, tophus, telangiectasia on skin or at all nail margins or sclerodactyly. Psych - Normal affect. IMPRESSION: 1) Tophaceous gout and 2) marked hyperuricemia in a 55-year-old male. The pt had significantly elevated uric acid level and recurrent gout after he discontinued febuxostat and losartan on his own in January 2015. He is a candidate for life-long therapy with a uricosuric agent due to his tophaceous gout and marked hyperuricemia. The goal of serum uric acid level for this pt is 5.0. The pt did not tolerate allopurinol due to rash in the past, he tolerated febuxostat well without any side effects. He will undergo repeat laboratory studies today prior to instituting any plans. 3) Hypertension. The pt's blood pressure elevated since he discontinued losartan, which is also a uricosuric agent. His blood pressure is under good control after he resumed losartan, he will resumedlosartan for now. 4) Vitamin D deficiency. The pt will undergo laboratory studies to evaluate for his vitamin D deficiency. RECOMMENDATIONS: 1) Continue daily febuxostat, 80 mg for now. 2) Continue daily losartan, 50 mg. 3) Check labs today. 4) Return to follow up in 6 months. Alvaro Cam MD, PhD documented in this encounter Plan of Treatment Not on file documented as of this encounter Procedures Procedure Name Priority Date/Time Associated Diagnosis Comments HEMOGRAM Routine 09/24/2015 8:55 AM EST Acute idiopathic gout of right foot Hyperuricemia DIFFERENTIAL, AUTOMATED Routine 09/24/2015 8:55 AM EST Acute idiopathic gout of right foot Hyperuricemia VITAMIN D, 25-HYDROXY Routine 09/24/2015 8:55 AM EST Vitamin D deficiency SEDIMENTATION RATE Routine 09/24/2015 8: 55 AM EST Acute idiopathic gout of right foot Hyperuricemia CBC (WITH DIFF) Routine 09/24/2015 8:55 AM EST Acute idiopathic gout of right foot Hyperuricemia CRP, CARDIAC RISK (HS CRP) Routine 09/24/2015 8:55 AM EST Acute idiopathic gout of right foot Hyperuricemia URIC ACID Routine 09/24/2015 8:55 AM EST Acute idiopathic gout of right foot Hyperuricemia COMPREHENSIVE METABOLIC PANEL Routine 09/24/2015 8:55 AM EST Acute idiopathic gout of right foot Hyperuricemia documented in this encounter Results * Differential, Automated (09/24/2015 8:55 AM EST) Neutrophil % 55.8 % CERNER MILLENNIUM Neutrophil Absolute 5.60 1.50 - 6.30 x10(3)/mcL CERNER MILLENNIUM Lymph % 29.9 % CERNER MILLENNIUM Lymphocytes Abs 3.0 1.0 - 3.6 x10(3)/mcL CERNER MILLENNIUM Monocyte % 9.6 % CERNER MILLENNIUM Monocyte Abs 1.0 0.2 - 1.0 x10(3)/mcL CERNER MILLENNIUM Eos % 3.9 % CERNER MILLENNIUM Eosinophils Abs 0.4 0.0 - 0.5 x10(3)/mcL CERNER MILLENNIUM Basophil % 0.6 % CERNER MILLENNIUM Baso Absolute 0.1 0.0 - 0.2 x10(3)/mcL CERNER MILLENNIUM Immature Gran % 0.20 % CERN ER MILLENNIUM Comment: Immature granulocytes(IG's)percentage and absolute count will include metamyelocytes, myelocytes, and promyelocytes. Blood smears from CBCs yielding IG's will be scanned manually for concordance. If this scan disagrees with the automated IG or if promyelocytes are noted, a manual differential will be performed. Immature Gran Absolute 0.02 0.00 - 0.05 x10(3)/mcL CERNER MILLENNIUM Blood specimen (specimen) 09/24/2015 8:55 AM EST 09/24/2015 9:03 AM EST Narrative Resulting Agency Comment Spec In Lab Alvaro Cam MD HEMATOLOGY ORDERABLE S CERNER MILLENNIUM * (ABNORMAL) Hemogram (09/24/2015 8:55 AM EST) White Blood Cell 10.0 4.0 - 10.0 x10(3)/mc L CERNER MILLENNIUM Red Blood Cell 4.67 4.63 - 6.08 x10(6)/mc L CERNER MILLENNIUM Hemoglobin 15.9 13.7 - 17.5 gm/dL CERNER MILLENNIUM Hematocrit 45.8 40.0 - 51.0 % CERNER MILLENNIUM Mean Cell Volume 98.1(H) 79.0 - 92.0 fL CERNER MILLENNIUM Mean Cell Hemoglobin 34.0(H) 25.6 - 32.2 pg CERNER MILLENNIUM Mean Cell Hemoglobin Concentration 34.7 32.0 - 36.5 gm/dL CERNER MILLENNIUM Platelet 284 145 - 370 x10(3)/mc L CERINO WOOTENENNIUM RDW Standard Deviation 47.5(H) 35.0 - 46.0 fL GHAZALA WOOTENENNIUM RDW coefficient of variation 13.4 10.9 - 14.4 % GHAZALA WOOTENENNIUM Mean Platelet Volume 10.6 9.0 - 12.0 fL GHAZALA WOOTENENNIUM Blood specimen (specimen) 09/24/2015 8:55 AM EST 09/24/2015 9:03 AM EST Narrative Resulting Agency Comment Spec In Lab Alvaro Cam MD HEMATOLOGY ORDERABLE S Performing Organization Address [facility] de Phone Number [facility] * Uric acid (09/24/2015 8:55 AM EST) Uric Acid 3.8 3.5 - 8.5 mg/dL [facility] Blood specimen (specimen) 09/24/2015 8:55 AM EST 09/24/2015 9:03 AM EST Narrative Resulting Agency Comment Spec In Lab Alvaro Cam MD CHEMISTRY ORDERABLES Performing Organization Address [facility] Phone Number [facility] * High Sensitivity CRP (09/24/2015 8:55 AM EST) C-Reactive Protein High Sensitivity 0.3 mg/L [facility] Comment: Interpretations: 1) For accurate cardiac risk assessment, the average of 2 values >2 weeks apart should be obtained (ref 1&2). A value >10 mg/L indicates an inflammatory condition, concentrations >10 mg/L should not be used for cardiac risk assessment. ?<1.0 mg/L: low risk ?1.0 - 3.0 mg/L: moderate risk ?>3.0 mg/L: high risk groups for future cardiovascular events 2) The general reference range of apparently healthy individuals using this test is <5.0 mg/L (derived from the test package insert) References: 1. Lynn HILL et. al. ??AHA/CDC Scientific Statement: Markers of Inflammation and Cardiovascular Disease. ??Circulation 2003; 107:499-511 2. Ridker PM. ??Clinical applications of C-reactive protein for cardiovascular disease detection and prevention. ??Circulation 2003; 107:363-369 Blood specimen (specimen) 09/24/2015 8:55 AM EST 09/24/2015 9:03 AM EST Narrative Resulting Agency Comment Spec In Lab Alvaro Cam MD CHEMISTRY ORDERABLES Performing Organization Address [facility] de Phone Number [facility] * (ABNORMAL) VIT D Total Evaluation (09/24/2015 8:55 AM EST) Vitamin D Total 25 OH 18(L) 30 - 100 ng/mL [facility] Comment: Deficient <10 ng/mL Insufficient 10 to 29 ng/mL Sufficient 30 to 100 ng/mL Potential Intoxication >100 ng/mL According to the [place] National Osteoporosis Foundation, Vitamin D concentrations >30 ng/mL are sufficient to protect bone health. ??The National Kidney Foundation has similarly stated that patients with Vitamin D concentrations <30ng/mL should be considered to be insufficient or deficient. http://Queryday/DHMCnatlkidneyfoundation http://Queryday/DHMCVitD The [employer] iSYS Vitamin D Immunoassay detects both 25-OH Vitamin D2 and 25-OH Vitamin D3, but only a total Vitamin D concentration is reported. Blood specimen (specimen) 09/24/2015 8:55 AM EST 09/24/2015 9:03 AM EST Narrative Resulting Agency Comment Spec In Lab Alvaro Cam MD CHEMISTRY ORDERABLES Performing Organization Address [facility] de Phone Number [facility] * Sedimentation rate (09/24/2015 8:55 AM EST) Sedimentation Rate Automated 5 0 - 15 mm/hr [facility] Blood specimen (specimen) 09/24/2015 8:55 AM EST 09/24/2015 9:03 AM EST Narrative Resulting Agency Comment Spec In Lab Alvaro Cam MD HEMATOLOGY ORDERABLE S CERINO WOOTENENNIUM * Comprehensive metabolic panel (non-fasting) (09/24/2015 8:55 AM EST) [facility] Glucose 151 65 - 199 mg/dL CERNER MILLENNIUM Comment:Diabetes: >=200 mg/d L plus symptoms Blood Urea Nitrogen 11 10 - 20 mg/dL CERNER MILLENNIUM Creatinine 1.25 0.80 - 1.50 mg/dL CERNER MILLENNIUM Comment: Please note that the pediatric reference intervals supplied above were not validated at [facility]. Results from pediatric patients should be interpreted in conjunction to the patient's age, height and muscle mass. Sodium 142 135 - 145 mmol/L CERNER MILLENNIUM Potassium 4.4 3.5 - 5.0 mmol/L CERNER MILLENNIUM Comment: Please note: ??Patients with WBC >100,000 may have falsely elevated Potassium levels. ??For accurate Potassium quantification in these patients send serum separator tube (gold top) for subsequent determinations. ??Contact the Clinical Chemistry Laboratory if there are any questions. Chloride 104 98 - 107 mmol/L CERNER MILLENNIUM Carbon Dioxide 26 22 - 31 mmol/L CERNER MILLENNIUM Anion Gap 12 5 - 15 mmol/L CERNER MILLENNIUM Calcium 9.7 8.5 - 10.5 mg/dL CERNER MILLENNIUM Protein, Total 7.2 6.1 - 8.0 gm/dL CERNER MILLENNIUM Albumin 4.6 3.2 - 5.2 gm/dL CERNER MILLENNIUM Aspartate Aminotransferase 23 0 - 39 unit/L CERNER MILLENNIUM Alanine Aminotransferase 18 0 - 55 unit/L CERNER MILLENNIUM Alkaline Phosphatase 55 40 - 120 unit/L CERNER MILLENNIUM Bilirubin, Total 0.6 0.2 - 1.3 mg/dL CERNER MILLENNIUM Bilirubin, Direct 0.1 0.0 - 0.3 mg/dL CERNER MILLENNIUM Est Glomerular Filtration Rate 60 >=60 CERNER MILLENNIUM Comment: This estimated GFR (eGFR) value was calculated using the MDRD equation which has been validated on patients between the ages of 18 and 70. The MDRD should not be used to assess kidney function in patients < 18 years of age or in patients with extremes of body mass, or in patients with acute kidney failure. This value should be multiplied by 1.2 for patients. For further information please copy and paste the following links into your internet browser. http://Queryday/DHnkdep http://Queryday/DHMCnkf Blood specimen (specimen) 09/24/2015 8:55 AM EST 09/24/2015 9:03 AM EST Narrative Resulting Agency Comment Spec In Lab Alvaro Cam MD CHEMISTRY ORDERABLES [facility] documented in this encounter Visit Diagnoses Diagnosis Acute idiopathic gout of right foot Hyperuricemia Other abnormal blood chemistry Vitamin D deficiency Unspecified vitamin D deficiency documented in this encounter Care Teams Medical Review Specialist Relationship Specialty Start Date End Date Alek Esparza MD [address] [place] [phone] PCP - General 09/03/10 04/05/23 documented as of this encounter
--- OUTSIDE RECORDS SUMMARY | 2024-08-29 14:15 | XMS_ITS | Encounter Summary ---
Author Organization [facility] Address [facility] [place] [address] Care Team Providers Care Wood Window And Door Craftsman Name Role Phone Alek Esparza MD Primary Care Provider [phone] Encounter Details Date Type Department Care Team (Late st Contact Info) Description 03/11/2017 Orders [place] [phone] Alek Arellano, [place] [facility] [place] [address] Social History Tobacco Use Types Packs/Day Years [...] filedocumented in this encounter Care Teams [employer] Window [employer] Craftsman Relationship Specialty Start Date End Date Alek Esparza MD [address] [place] [phone] PCP - General 09/03/10 04/05/23 documented as of this encounter
--- OUTSIDE RECORDS SUMMARY | 2024-08-29 14:15 | XMS_ITS | Encounter Summary ---
Author Organization [facility] Address [facility] [place] [address] Care Team Providers Care Photo Checker Name Role Phone Alek Esparza MD Primary Care Provider [phone] Reason for Visit * Reason Comments Neck Pain left worse * Surgical (Routine) - Closed Specialty Diagnoses / Procedures Referred By Contac t Referred To Contact Pain Management Diagnoses Radiculopathy of cervical region Procedures PRO INJECTION DX/THER SBST INTRLMNR CRV/THRC W/IMG Alek Menendez, PA [facility] [place] [address] [facility] [address] [place] [phone] Referral ID Status Reason Start Date Expiration Date V isits Requested Visits Authorized [id number] Closed Consult, Test & Treat 04/30/2017 04/30/2018 1 1 Encounter Details Date Type Department Care Team (Latest Contact Info) Description 05/29/2017 9:15 AM EDT Procedure [place] [address] Mick Tolliver MD [facility] [place] [address] Spondylolysis of cervicothoracic region Social History Tobacco Use Types Packs/Day Years [...] Sign Reading Time Taken Comments Blood Pressure 106/74 05/29/2017 10:09 AM EDT Pulse 90 05/29/2017 10:09 AM EDT Temperature 36.7 ??C (98.1 ??F) 05/29/2017 9:10 AM ED T Respiratory Rate 20 05/29/2017 9:10 AM EDT Oxygen Saturation 98% 05/29/2017 10:09 AM EDT Inhaled Oxygen Concentration - - Weight - - Height - - Body Mass Index - - documented in this encounter Patient Instructions * Patient Instructions* Astrid Esteves, MANOJ - 05/29/2017 9:15 AM EDT [facility] Discharge Instructions: You were seen by Dr. Mick Tolliver MD and Doris Sommers MD who performed left cervical epidural steroid injection. It is normal that the injection site will be sore for up to 48 hours. You may also experience mild stiffness in the joint near the injection site. [x] You may resume your normal activities: tomorrow. [...] your bladder 4-6 hours after your procedure. You received the following medications: Lidocaine, Omnipaque (contrast dye) and Dexamethasone Sodium Phosphate 10 mg. During regular business hours, please phone the [...] or proceed to your local emergency department. Astrid Esteves LPN Special instructions documented in this encounter Progress Notes * Astrid Esteves LPN - 05/29/2017 9:15 AM EDT Pre-Procedure Screening Questions: 1. Status: No 2. 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 Patient taking antibiotics at present? No 4. NPO per Pain Management Center protocol? Yes 5. Patient diabetic: No 6. Patient routinely taking anticoagulants ? No Patient Vital Signs documented in Doc Flowsheets associated with this encounter. Patient Discharge Instructions were reviewed with patient and copy provided to patient. documented in this encounter Procedure Notes * Doris Sommers MD - 05/29/2017 9:15 AM EDTAssociated Order(s): EPIDURAL STEROID INJECTION Procedure(s): EPIDURAL STEROID INJECTION Pre-Procedure Diagnose(s): Spondylolysis of cervicothoracic region Procedure Note Cervical Interlaminar Epidural Steroid Injection Date of Service: 05/29/2017 Patient: Enoc Esteban Provider: Doris Sommers MD Enoc Esteban has been referred to the [facility] for cervical epidural steroid injection. Mr. Esteban was interviewed and the medical record were reviewed. There were no medical, pharmacologic, radiographic or other structural contraindications to attempting fluoroscopically guided cervicalinterlaminar epidural steroid injection. Risks, potential side effects, indications, and potential benefits of the procedure were reviewed with Mr. Esteban. Questions and concernswere addressed. After it was clear that the patient was fully informed about the procedure, the printed consent form was signed by the patient and myself. A standard time-out procedure was performed. The patient was placed in the prone position on the fluoroscopy table and automated blood pressure cuff as well as pulse oximeter was applied. The skin entry point for entering the epidural space by a midline C7-T1 interlaminar approach was identified under fluoroscopy and marked. The skin entry point was thoroughly cleaned with Chlorhexadine preparation and the skin was draped. Next a mixture of9cc of 1% lidocaine mixed with 1cc of Sodium Bicarbonate was infiltrated into the area of the planned skin entry point and underlying subcutaneous tissues. Next an 18 gauge Tuohy needle was placed under fluoroscopic guidance and with loss of resistance technique into the epidural space utilizing multiple AP and 55 degree contralateral fluoroscopic views. Upon correct needle placement and loss of resistance, there were no paresthesiae or return of blood or CSF through the needle. Next 2cc of preservative-free Omnipaque 240 was injected with clear epidural spread in the A/P and oblique views. Next, a solution of 10mg of preservative-free Dexamethasone mixed with 1ml of preservative-free normal saline was injected through with no unusual discomfort expressed by Mr. Esteban. Mr. Esteban's vital signs were stable throughout the procedure and were as recorded in the docflowsheet by the nursing staff. If given, dosages of intravenous drugs for anxiolysis and analgesia were documented in MAR. Follow up plans and appointments were discussed with the Mr. Esteban. Post procedure instruction was given as documented in nursing documentation and having met discharge criteria, he was discharged from the Pain Management Center. COMMENTS: Has anterior fusion at C5-C7. Can repeat up to 3x per year pending Doris Sommers MD I was the attending physician supervising the fellow in the above care and I was present with the fellow for the entire procedure. Mick Tolliver MD, MS Clinical Business Change Manager of Anesthesiology [facility] [employer] [facility] [address] [phone] / [facility] CC: CARMELINA Padilla [facility] [place] [address] Alek Esparza MD [address] [place] [address] documented in this encounter Plan of Treatment Not on file documented as of this encounter Procedures Procedure Name Priority Date/Time Associated Diagnosis Comments EPIDURAL STEROID INJECTION Routine 06/01/2017 6:49 PM EDT Spondylolysis of cervicothoracic region documented in this encounter Results * EPIDURAL STEROID INJECTION (06/01/2017 6:49 PM EDT) Narrative Mick Tolliver MD - 06/01/2017 6:49 PM EDT Mick Tolliver MD ? 06/01/2017 ??6:49 PM Procedure Note Cervical Interlaminar Epidural Steroid Injection Date of Service: ??05/29/2017 Patient: ??Enoc Esteban ?? Provider: ??Doris Sommers MD ?? Enoc Esteban has been referred to the [facility] for cervical epidural steroid injection. ?? Mr. Esteban was interviewed and the medical record were reviewed. ?? There were no medical, pharmacologic, radiographic or other structural contraindications to attempting fluoroscopically guided cervical interlaminar epidural steroid injection. ??Risks, potential side effects, indications, and potential benefits of the procedure were reviewed with Mr. Esteban. ??Questions and concernswere addressed. ??After it was clear that the patient was fully informed about the procedure, the printed consent form was signed by the patient and myself. ??A standard time-out procedure was performed. The patient was placed in the prone position on the fluoroscopy table and automated blood pressure cuff as well as pulse oximeter was applied. ??The skin entry point for entering the epidural space by a midline C7-T1 interlaminar approach was identified under fluoroscopy and marked. ??The skin entry point was thoroughly cleaned with Chlorhexadine preparation and the skin was draped. ??Next a mixture of 9cc of 1% lidocaine mixed with 1cc of Sodium Bicarbonate was infiltrated into the area of the planned skin entry point and underlying subcutaneous tissues. ?? Next an 18 gauge Tuohy needle was placed under fluoroscopic guidance and with loss of resistance technique into the epidural space utilizing multiple AP and 55 degree contralateral fluoroscopic views. ??Upon correct needle placement and loss of resistance, there were no paresthesiae or return of blood or CSF through the needle. Next 2cc of preservative-free Omnipaque 240 was injected with clear epidural spread in the A/P and oblique views. Next, a solution of 10mg of preservative-free Dexamethasone mixed with 1ml of preservative-free normal saline was injected through with no unusual discomfort expressed by Mr. Esteban. Mr. Esteban's vital signs were stable throughout the procedure and were as recorded in the docflowsheet by the nursing staff. ??If given, dosages of intravenous drugs for anxiolysis and analgesia were documented in MAR. Follow up plans and appointments were discussed with the Mr. Esteban. ??Post procedure instruction was given as documented in nursing documentation and having met discharge criteria, he was discharged from the [facility]. COMMENTS: Has anterior fusion at C5-C7. ??Can repeat up to 3x per year pending Doris Sommers MD I was the attending physician supervising the fellow in the above care and I was present with the fellow for the entire procedure. 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 documented in this encounter Administered Medications Inactive Administered Medications - up to 3 most recent administrations Medication Order MAR Action Action Date Dose Rate Site dexamethasone(PF) (DECADRON) 10 mg/mL injection 10 mg 10 mg, Epidural, ONCE, 1 dose, On Thu05/29/17 at 1030, Routine Given 05/29/2017 10:30 AM EDT 10 mg iohexol (OMNIPAQUE) 240 mg/mL solution 1 mL 1 mL, Epidural, ONCE, 1 dose, On Thu05/29/17 at 1030, Wasted 49 ml, Routine Given 05/29/2017 10:30 AM EDT 1 mL documented in this encounter Care Teams Photo Checker Relationship Specialty Start Date End Date Alek Esparza MD [address] [place] [address] PCP - General 09/03/10 04/05/23 documented as of this encounter
--- OUTSIDE RECORDS SUMMARY | 2024-08-29 14:15 | XMS_ITS | Encounter Summary ---
Author Organization [facility] [address] Care Team Providers Care Director Of Programming Name Role Phone Alek Esparza MD Primary Care Provider [phone] Encounter Details Date Type Department Care Team (Latest Contact Info) Description 10/16/2014 11:45 AM EST - 10/16/2014 4:19 PM EST Hospital Encounter [place] [address] Broderick Howard MD [facility] [address] [place] [address] Pain in right elbow Discharge Disposition: Home Social History Tobacco Use [...] Sign Reading Time Taken Comments Blood Pressure 143/87 10/16/2014 3:31 PM EST Pulse 80 10/16/2014 3:31 PM EST Temperature 36.7 ??C (98.1 ??F) 10/16/2014 3:21 PM ES T Respiratory Rate 20 10/16/2014 3:31 PM EST Oxygen Saturation 95% 10/16/2014 3:31 PM EST Inhaled Oxygen Concentration - - Weight 104.3 kg (230 lb) 10/16/2014 11:59 AM EST Height 180.3 cm (5' 11) 10/16/2014 11:59 AM EST Body Mass Index 32.08 10/16/2014 11:59 AM EST documented in this encounter Discharge Instructions * Discharge Instructions* Landon Dewey RN - 10/16/2014 12:12 PM EST General Anesthesia Discharge Instructions Go home and rest. You may be sleepy for several hours. Take it easy as sudden position changes may cause nausea and/or dizziness. Use caution on stairs. Do not smoke if you are alone. Follow a light to regular diet as tolerated today. If nausea occurs, start with clear liquids, and progress slowly to a regular diet. Do not drive, operate machinery, drink alcoholic beverages or make any legal decisions after havinggeneral anesthesia. The medications given change your reaction time and alter your judgement. IV site -- slight redness is normal, you can use warm compresses. If tenderness and redness increases or foul drainage occurs, please contact your M.D. Patients who have had endotracheal tubes/LMA (tubes used by the anesthesia staff to ensure a safe airway during your operation) may have a sore throat. This is normal and cold liquids or soothing lozengers will help ease this discomfort. Narcotic pain medications can cause constipation, please ask the surgeons office what they recommend for prevention of this. Some non-pharmaceutical means of constipation prevention include increasing intake of fluids, eating more fruits and vegetables as well as fruit juices. If you are uncomfortable and/or unable to urinate within 8 hours of discharge and it is before 5 pm, call your physician. If it is after 5pm go to the closest emergency room or call the hospital router operator radial at [phone] and ask for physician gps navigation installer covering for your physician. Questions or problems after 5pm or on a weekend: Call the [facility] router operator radial at and ask for the physician gps navigation installer covering for your doctor. * Patient Instructions* Freddie Waite PA - 10/16/2014 3:23 PM EST ORTHOPAEDIC SURGERY DISCHARGE INSTRUCTIONS Activity: Do not bear weight to your right upper extremity. Keep the affected extremity elevated and use ice as needed. Driving: No driving while you are on narcotic pain medication. No driving until you are instructed by your orthopedic physician. Call the office if you have questions. You may begin driving once fully able to weight bear and no longer taking narcotics. Medications: Oxycodone as prescribed Sling: To be used all the time except for hygiene and for range of motion exercises of the elbow shoulder wrist and hand which are to be performed three times daily. Dressing: Keep the dressing in place for 4 days after 4 days, remove dressing and replace with waterproof bandaids. Keep the incision clean and dry until you are seen in follow-up. When you bathe, protect the incision with a plastic bag and secured with adhesive tape DO NOT submerge the wound until sutures removed. CALL YOUR SURGEON IF YOU HAVE: Fevers greater than 101.5* Fahrenheit Chills or night sweats Nausea or vomiting Wound redness or discharge Numbness or tingling Increased pain Calf pain or swelling Any questions or concerns Follow up: As scheduled in the Orthopaedic Department. Contact Information: Your orthopaedic surgeon is: Dr Howard If it is after 5:00PM on a weekday or a weekend and it is of an urgent nature please call [phone] and ask for the on-call orthopaedic resident. documented in this encounter Medications at Time of Discharge Medication Sig Dispensed Refills Start Date End Date zolpidem (AMBIEN) 10 mg Tablet Take 10 mg by mouth nightly as needed. oxyCODONE (ROXICODONE) 5 mg Tablet Take 1-2 tablets by mouth every 4 hours as needed for Pain. Medication may cause constipation 60 tablet 0 10/16/2014 11/02/2014 predniSONE (DELTASONE) 5 mg Tablet Take 2 tablets by mouth daily. 90 tablet 3 06/13/2014 11/02/2014 febuxostat (ULORIC) 80 mg Tablet Take 1 tablet by mouth daily. 60 tablet 2 06/13/2014 04/20/2015 losartan (COZAAR) 50 mg tablet TAKE ONE TABLET BY MOUTH EVERY DAY 90 tablet 3 02/15/2014 04/20/2015 documented as of this encounter H&P Notes * Broderick Howard MD - 10/16/2014 1:16 PM EST The patient's history and physical exam have been reviewed and completed. There has been no interval change from that of the pre-operative history and physical exam done within the last 30 days. Source Note - Broderick Howard MD - 10/16/2014 1:16 PM EST Patient Name: Brenda Esteban Patient Age: 54 y.o. Birthdate: 1960 Admit date: 10/16/2014 Attending Physician: Broderick Howard MD See scanned document for pre-procedural H&P completed on 10/09/2014. * Broderick Howard MD - 10/16/2014 1:16 PM EST Patient Name: Brenda Esteban Patient Age: 54 y.o. Birthdate: 1960 Admit date: 10/16/2014 Attending Physician: Broderick Howard MD See scanned document for pre-procedural H&P completed on 10/09/2014. documented in this encounter Miscellaneous Notes * Op Note - Broderick Howard MD - 10/16/2014 3:28 PM EST [facility] [place] Patient Name: Brenda Esteban : [id number] MR#: [id number] Case Date: 10/16/2014 Surgeon: Surgeon(s) and Role: * Broderick Howard MD - Primary * Freddie Waite PA - Physician Tab Cutting Machine Operator Preoperative diagnosis: chronic olecranon bursitis Postoperative diagnosis: chronic olecranon bursitis Procedure(s): EXCISION OF OLECRANON BURSA EXCISION OF PROXIMAL ULNA ENTHESOPHYTE REPAIR DISTAL TRICEPS TENDON Anesthesia: General Estimated Blood Loss: * No values recorded between 10/16/2014 2:07 PM and 10/16/2014 3:10 PM * Specimens removed during surgery: olecranon bursa, olecranon enthesophyte Drains: none Surgical Closure: Primary Closure - closure of ALL tissue levels during the original surgery regardless of wires, wickes, drains, or other devices extruding through the incision Disposition: awakened from anesthesia, extubated and taken to the recovery room in a stable condition, having suffered no apparent untoward event. Condition: doing well without problems (Please see the Surgical Encounter Summary for any Implant and Specimen details pertinent to this patient.) HPI/Surgical Indications: 54-year-old male with chronic olecranon bursitis and pain. After discussion of risks and benefits of surgery, he elected to proceed with bursal excision, Noemi justified excision, and primary triceps repair. He understood the risks of surgery as listed on the consent, which he signed. All his questions were answered. In particular, he understands the risk of wound breakdown given his thin skin and steroids. Procedure Description: The patient was identified in the preoperative holding area and the site of surgery was confirmed to be the right elbow. After confirming with both the patient and the informedconsent, the elbow was marked with the green [place]. The plan was reviewed with the patient and allquestions were answered. The patient was then taken to the operating room. The patient was placed supine on the operating table and a general anesthetic was induced. The patient was then rolled into the lateral decubitus position, taking care to pad both the up and down legs with pillows. An axillary roll was placed a hand's breath beneath the axilla. The down arm was well padded. The torso was supported with a beanbag. A well-padded tourniquet was placed high on the right arm. The operative arm was positioned on the arthroscopic arm wall and secured in that position with a strap. Antibiotics were administered intravenously. A timeout was called and all present agreed on the correct patient and site of surgery elbow was the site of surgery. A 6 cm incision was made curving medially over the tip of the olecranon. It was carried curving theskin and subcutaneous tissue. Immediately, it was evident that there was a tophaceous gouty-appearing deposits in the olecranon bursa. The bursa was excised after identifying the ulnar nerve and protecting it. At this point, it was readily apparent that there was a broken and has a fight off the tip of the olecranon. The triceps was split in line with its fibers and the calcified was shelled out.Most of the triceps was still adequately attached the proximal ulna, but approximately 40% requiredrepair. This was repaired using FiberWire suture. Wound was then thoroughly irrigated. Hemostasis was achieved. The subcutaneous tissue was approximated with 2-0 Vicryl in a couple of sutures also tothe triceps fascia in order to minimize space. The skin was then closed with 3-0 nylon vertical mattress suture. Attestation: Case Date: 10/16/2014 I was present and I participated during the entire procedure (does not need to include opening and closing). BRODERICK HOWARD MD 10/16/2014 documented in this encounter Plan of Treatment Not on file documented as of this encounter Procedures Procedure Name Priority Date/Time Associated Diagnosis Comments SPECIMEN TO PATHOLOGY Routine 10/16/2014 2:33 PM EST SURGICAL PATHOLOGY REPORT Routine 10/16/2014 2:22 PM EST SPECIMEN TO PATHOLOGY Routine 10/16/2014 2:22 PM EST MODIFIER SIDE LYING 10/16/2014 1 :39 PM EST Pain in right elbow EXCISION OF OLECRANON BURSA (WRVU 3.78) 10/16/2014 1:39 PM EST Pain in right elbow documented in this encounter Results * Specimen to Pathology (surgical or derm) (10/16/2014 2:33 PM EST) AP Specimen 10/16/2014 2:33 PM EST 10/16/2014 2:33 PM EST Narrative [facility] - 10/16/2014 2:33 PM EST Specimen requisition ordered. ??Separate Pathology report to follow Broderick Howard MD PATHOLOGY/CYTOLOGY [facility] * Surgical Pathology Report (10/16/2014 2:22 PM EST) Final Diagnosis ? [facility] ? Provider: ?? BRODERICK HOWARD ? Pt. Name: ?? BRENDA ESTEBAN ? Acc #: ?[id number] ?Pt. ? Col Date: ?? 10/16/2014 ?/Sex: ?1960,(54 years),Male ? Rec Date: ?? 10/16/2014 ?LOC: ?[facility] ? SURGICAL PATHOLOGY ? ---Pathologic Diagnosis--- ? A - Soft tissue, right olecranon bursa, excision: ?- TOPHACEOUS GOUT ? B - Bone, osteophyte, resection: ?- Lamellar bone and surrounding fibrocartilaginous tissue compatible with ? an OSTEOPHYTE ?- Focal changes consistent with GOUT ? 10/18/14 ? [facility] ? 10/18/14 Verified by: ? Ace Milan MD ? Dermatopathologist, Bone & Soft Tissue ? Pathologist ? (Electronic Signature) ? The attending pathologist whose signature appears on this report has ? reviewed all diagnostic slides and has edited the gross and/or ? microscopic portion of the report in rendering the final pathologic ? diagnosis. ? ---Gross Description--- ? A - Labeled/Fixative: Olecranon bursa right, formalin. ? Quantity/Size: Single, 6.1 x 4.2 x 1.6 cm. ? Tissue Description: Irregular fan-pink fibromembranous tissue. ??On section, ? with multiple cystic structures filled with a soft, chalky material. ? Sections/Processing: Smears are present. ??For possible crystal ? identification. ??In addition one section (A1) is submitted for non-aqueous ? processing. ??Additional textiles sales representative sections are submitted. ??(R3) ? B - Labeled/Fixative: Osteophyte right elbow, formalin. ? Quantity/Size: Single, 1.8 x 1.3 x 0.4 cm. ? Tissue Description: Irregular cup and bony pink-white tissue. ? Sections/Processing: The specimen is serially sectioned. ? Blocks submitted for decalcification: ??(B1). (T1, for decal) ??pps ? ---Clinical Information--- ? Specimen Submitted: ? A - Olecranon bursa right ? B - Osteophyte right elbow ? Clinical History: ? Chronic olecranon bursitis ? [facility] ? Provider: ?? BRODERICK HOWARD ? Pt. Name: ?? BRENDA ESTEBAN ? Acc #: ?[id number] ?Pt. ? Col Date: ?? 10/16/2014 ?/Sex: ?1960,(54 years),Male ? Rec Date: ?? 10/16/2014 ?LOC: ?[facility] ? SURGICAL PATHOLOGY ? Clinical Diagnosis: ? Chronic olecranon bursitis 10/18/2014 3:14 PM [facility] BONE STRUCTURE / Unknown 10/16/2014 2:22 PM EST 10/16/2014 2:22 PM EST BONE STRUCTURE / Unknown 10/16/2014 2:22 PM EST 10/16/2014 2:22 PM EST Broderick Howard MD PATHOLOGY/CYTOLOGY [facility] [place] [address] * Specimen to Pathology (surgical or derm) (10/16/2014 2:22 PM EST) AP Specimen 10/16/2014 2:22 PM EST 10/16/2014 2:22 PM EST Narrative [facility] - 10/16/2014 2:22 PM EST Specimen requisition ordered. ??Separate Pathology report to follow Broderick Howard MD PATHOLOGY/CYTOLOGY O CASSIE Performing Organization Address City/[facility] Co de Phone Number [facility]HAZALA ELAM documented in this encounter Visit Diagnoses Diagnosis Pain in right elbow Pain in joint, upper arm documented in this encounter Administered Medications Inactive Administered Medications - up to 3 most recent administrations Medication Order MAR Action Action Date Dose Rate Site HYDROmorphone (DILAUDID) 0.2 mg/mL 10mL Syringe (IR ONLY) 0.2-0.4 mg, Intravenous, EVERY 5 MIN PRN, Pain, Starting on Thu10/16/14 at 1527, Until Thu10/16/14 at 1927, For moderate pain (4-6) give: 0.2 mg every 5 minute prn For severe pain (7-10) give: 0.4 mg every 5 minutes prn Maximum dose: 4 mg per hour Hold for respiratory rate less than 10 per minute., PACU Recovery Given 10/16/2014 4:04 PM EST 0.4 mg Given 10/16/2014 3:51 PM EST 0.4 mg Given 10/16/2014 3:40 PM EST 0.4 mg lactated ringers infusion 1,000 mL 1,000 mL, at 100 mL/hr, Intravenous, CONTINUOUS, Starting on Thu10/16/14 at 1230, Until Thu10/16/14 at 1927, Day of Surgery (Day of Procedure) New Bag 10/16/2014 1:39 PM EST New Bag 10/16/2014 12:14 PM EST 1,000 mLs 100 mL/hr oxyCODONE (ROXICODONE) immediate release tablet 10 mg 10 mg, Oral, ONCE, 1 dose, On Thu10/16/14 at 1600, PACU Recovery, Routine Given 10/16/2014 3:37 PM EST 10 mg documented in this encounter Active and Recently Administered Medications Times are shown in EST. Scheduled Medication Order 10/14/2014 10/15/2014 10/16/2014 ceFAZolin (ANCEF) 2g in dextrose 5% 50 mL (COMPLETED) 2 g, Intravenous, EVERY 3 HOURS, 1 dose, First dose on Thu10/16/14 at 1230, Redose after 3 hours., Intra-Operative (Intra-Procedure), Indication for (Active or Suspected): Prophylaxis 1339 (Given - Provid er: Delma Gaviria) oxyCODONE (ROXICODONE) immediate release tablet 10 mg (COMPLETED) 10 mg, Oral, ONCE, 1 dose, On Thu10/16/14 at 1600, PACU Recovery, Routine 1537 (Given - Provid er: Audra Amato RN) Continuous Medication Order 10/14/2014 10/15/2014 10/16/2014 lactated ringers infusion 1,000 mL (CANCELED) 1,000 mL, at 100 mL/hr, Intravenous, CONTINUOUS, Starting on Thu10/16/14 at 1230, Until Thu10/16/14 at 1927, Day of Surgery (Day of Procedure) 1214 (New Bag - Prov ider: Landon Dewey RN)1339 (New Bag - Provider: Delma Gaviria)1446 (Anesthesia Volume Adjustment - Provider: Delma Gaviria) PRN Medication Order 10/14/2014 10/15/2014 10/16/2014 HYDROmorphone (DILAUDID) 0.2 mg/mL 10mL Syringe (IR ONLY) (CANCELED) 0.2-0.4 mg, Intravenous, EVERY 5 MIN PRN, Pain, Starting on Thu10/16/14 at 1527, Until Thu10/16/14 at 1927, For moderate pain (4-6) give: 0.2 mg every 5 minute prn For severe pain (7-10) give: 0.4 mg every 5 minutes prn Maximum dose: 4 mg per hour Hold for respiratory rate less than 10 per minute., PACU Recovery 1540 (Given - Provid er: Audra Amato RN)1551 (Given - Provider: Audra Amato RN)1604 (Given - Provider: Audra Amato, RN) documented in this encounter Care Teams Director Of Programming Relationship Specialty Start Date End Date Alek Esparza MD [address] [place] [phone] PCP - General 09/03/10 04/05/23 documented as of this encounter
--- OUTSIDE RECORDS SUMMARY | 2024-08-29 14:15 | XMS_ITS | Encounter Summary ---
Author Organization [facility] Address [facility] [place] [address] Care Team Providers Care Rigging Supervisor Name Role Phone Alek Esparza MD Primary Care Provider [phone] Reason for Visit * Reason Comments Follow-up Encounter Details Date Type Department Care Team (Late st Contact Info) Description 06/13/2014 4:00 PM EDT [place] [phone] Alvaro Cam MD [facility] [place] [address] Gout (Primary Dx); Vitamin D deficiency Discharge Disposition: Home Social History Tobacco Use [...] Sign Reading Time Taken Comments Blood Pressure 128/87 06/13/2014 4:00 PM EDT Pulse 63 06/13/2014 4:00 PM EDT Temperature 36.6 ??C (97.9 ??F) 06/13/2014 4:00 PM ED T Respiratory Rate - - Oxygen Saturation 99% 06/13/2014 4:00 PM EDT Inhaled Oxygen Concentration - - Weight 106.8 kg (235 lb 6.4 oz) 06/13/2014 4:00 PM EDT Height 180.3 cm (5' 11) 06/13/2014 4:00 PM EDT Body Mass Index 32.83 06/13/2014 4:00 PM EDT documented in this encounter Patient Instructions * Patient Instructions* Alvaro Cam MD - 06/16/2014 11:32 PM EDT 1) Continue Uloric, 80 mg daily. 2) Check labs today. 3) Return to follow up in 3-4 months. documented in this encounter Progress Notes * Avlaro Cam MD - 06/13/2014 4:07 PM EDT REASON FOR VISIT: Follow up for tophaceous gout and hyperuricemia. INTERVAL HISTORY: The pt was a 54-year-old male, who returned for a follow up of tophaceous gout and hyperuricemia. The pt noted that since his last visit on March 20, 2014, he continued to be on daily febuxostat, 80 mg for his tophaceous gout and hyperuricemia. He was also on losartan for blood pressure control and hyperuricemia. He remained largely asymptomatic without any recurrent joint pain and swelling. He did complain of sharp and severe right elbow pain every time when he bumped by his right elbow. Otherwise, he tolerated febuxostat and losartan well without any fever, chest pain, shortness of breath, nausea, dysuria, headache, polydipsia, rash, or blood clots. The pt was evaluated at the orthopedic Surgery at [facility] for his large right olecranon spur and large right elbow bursa today. The ptelected to undergo surgical intervention in early 2014. PAST MEDICAL HISTORY: Hypertension Tophaceous gout Hyperuricemia Moderate vitamin D deficiency Asthma Lafleur's lung Obstructive sleep apnea S/p [...] living with his partner. 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 FAMILY HISTORY: Mother - Unknown, alive at the age of 66. Father - Prostate cancer, alive at the age of 68. PHYSICAL EXAMINATION: Vitals 06/13/2014 SYSTOLIC 128 DIASTOLIC 87 PULSE 63 TEMPERATURE 97.9 Height (Swedish) 5' 11 Height (Metric) 180.3 cm Weight (Swedish) 235 lbs 6 oz Weight (Metric) 106.777 kg BODY MASS INDEX 32.85 kg/m2 Pulse Oximetry 99 General - Alert, co-operative, no apparent distress, oriented x 3. HEENT - Conjunctiva pink, no sclerae icterus or malar rash. Extremities - Upper extremities: FROM of all joints; no joint tenderness on palpation; + large right olecranon tophus nodule; no signs of synovitis, soft tissue swelling, of joint effusion; no clubbing, cyanosis, or edema. Skin - Smooth and intact, no rash, telangiectasia on skin or at all nail margins or sclerodactyly. Psych - Normal affect. IMPRESSION: 1) Tophaceous gout and 2) marked hyperuricemia in a 54-year-old male. Because of his tophaceous gout and marked hyperuricemia, the pt is a candidate for life-long therapy with a uricosuric agent. The pt did not tolerate allopurinol due to rash, he tolerated febuxostat well without any side effects. The goal of serum uric acid level for this pt is 5.0. He will continue current regimen. He will undergo laboratory studies today. 3) Hypertension. The pt will continue losartan, which is a uricosuric agent, for blood pressure control. RECOMMENDATIONS: 1) Continue Uloric, 80 mg daily. 2) Check labs today. 3) Return to follow up in 3-4 months. Alvaro Cam MD, PhD documented in this encounter Plan of Treatment Not on file documented as of this encounter Procedures Procedure Name Priority Date/Time Associated Diagnosis Comments HEMOGRAM Routine 06/13/2014 4:33 PM EDT Gout DIFFERENTIAL, AUTOMATED Routine 06/13/2014 4:33 PM EDT Gout VITAMIN D, 25-HYDROXY Routine 06/13/2014 4:33 PM EDT Vitamin D deficiency SEDIMENTATION RATE Routine 06/13/2014 4: 33 PM EDT Gout CBC (WITH DIFF) Routine 06/13/2014 4:33 PM EDT Gout CRP, CARDIAC RISK (HS CRP) Routine 06/13/2014 4:33 PM EDT Gout URIC ACID Routine 06/13/2014 4:33 PM EDT Gout HEPATIC FUNCTION PANEL Routine 4 4:33 PM EDT Gout BASIC METABOLIC PANEL Routine 06/13/2014 4:33 PM EDT Gout documented in this encounter Results * Differential, Automated (06/13/2014 4:33 PM EDT) Neutrophil % 52.1 34.0 - 71.0 % CERNER MILLENNIUM Neutrophil Absolute 4.19 1.50 - 6.30 x10(3)/mcL CERNER MILLENNIUM Lymph % 34.5 19.0 - 53.0 % CERNER MILLENNIUM Lymphocytes Abs 2.8 1.0 - 3.6 x10(3)/mcL CERNER MILLENNIUM Monocyte % 9.1 4.0 - 13.0 % CERNER MILLENNIUM Monocyte Abs 0.7 0.2 - 1.0 x10(3)/mcL CERNER MILLENNIUM Eos % 3.2 0.0 - 7.0 % CERNER MILLENNIUM Eosinophils Abs 0.3 0.0 - 0.5 x10(3)/mcL CERNER MILLENNIUM Basophil % 1.0 0.0 - 2.0 % CERNER MILLENNIUM Baso Absolute 0.1 0.0 - 0.2 x10(3)/mcL CERNER MILLENNIUM Immature Gran % 0.10 0.00 - 0.66 % CERNER MILLENNIUM Comment: Immature granulocytes(IG's)percentage and absolute count will include metamyelocytes, myelocytes, and promyelocytes. Blood smears from CBCs yielding IG's will be scanned manually for concordance. If this scan disagrees with the automated IG or if promyelocytes are noted, a manual differential will be performed. Immature Gran Absolute 0.01 0.00 - 0.05 x10(3)/mcL CERNER MILLENNIUM Blood specimen (specimen) 06/13/2014 4:33 PM EDT 06/13/2014 4:42 PM EDT Narrative Resulting Agency Comment Spec In Lab Alvaro Cam MD HEMATOLOGY ORDERABLE S Performing Organization Address City/[facility]/ZIP Co de Phone Number CERINO MILLENNIUM * (ABNORMAL) Hemogram (06/13/2014 4:33 PM EDT) White Blood Cell 8.0 4.0 - 10.0 x10(3)/mc L CERNER MILLENNIUM Red Blood Cell 4.52(L) 4.63 - 6.08 x10(6)/mc L CERNER MILLENNIUM Hemoglobin 15.4 13.7 - 17.5 gm/dL CERNER MILLENNIUM Hematocrit 45.1 40.0 - 51.0 % CERNER MILLENNIUM Mean Cell Volume 99.8(H) 79.0 - 92.0 fL CERNER MILLENNIUM Mean Cell Hemoglobin 34.1(H) 25.6 - 32.2 pg CERNER MILLENNIUM Mean Cell Hemoglobin Concentration 34.1 32.0 - 36.5 gm/dL CERNER MILLENNIUM Platelet 268 145 - 370 x10(3)/mc L CERNER MILLENNIUM RDW Standard Deviation 47.7(H) 35.0 - 46.0 fL CERNER MILLENNIUM RDW coefficient of variation 13.0 10.9 - 14.4 % CERNER MILLENNIUM Mean Platelet Volume 10.6 9.0 - 12.0 fL CERNER MILLENNIUM Blood specimen (specimen) 06/13/2014 4:33 PM EDT 06/13/2014 4:42 PM EDT Narrative Resulting Agency Comment Spec In Lab Alvaro Cam MD HEMATOLOGY ORDERABLE S [facility] * VIT D Total Evaluation (06/13/2014 4:33 PM EDT) Vitamin D Total 25 OH 31 30 - 100 ng/mL [facility] Comment: Deficient <10 ng/mL Insufficient 10 to 29 ng/mL Sufficient 30 to 100 ng/mL Potential Intoxication >100 ng/mL According to the [place] National Osteoporosis Foundation, Vitamin D concentrations >30 ng/mL are sufficient to protect bone health. ??The National Kidney Foundation has similarly stated that patients with Vitamin D concentrations <30ng/mL should be considered to be insufficient or deficient. http://[employer]/DHSegwaynatlkidneyfoundation http://[employer]/Espion LimitedVitD The [employer] iSYS Vitamin D Immunoassay detects both 25-OH Vitamin D2 and 25-OH Vitamin D3, but only a total Vitamin D concentration is reported. Blood specimen (specimen) 06/13/2014 4:33 PM EDT 06/13/2014 4:42 PM EDT Narrative Resulting Agency Comment Spec In Lab Alvaro Cam MD CHEMISTRY ORDERABLES Performing Organization Address [facility] de Phone Number [facility] * High Sensitivity CRP (06/13/2014 4:33 PM EDT) [facility] C-Reactive Protein High Sensitivity 1.3 mg/L [facility] Comment: Interpretations: 1) For accurate cardiac risk [...] prevention. ??Circulation 2003; [id number]:[phone] Blood specimen (specimen) 06/13/2014 4:33 PM EDT 06/13/2014 4:42 PM EDT Narrative Resulting Agency Comment Spec In Lab Alvaro Cam MD CHEMISTRY ORDERABLES Performing Organization Address [facility] de Phone Number CERINO DUNHAMIUM * Sedimentation rate (06/13/2014 4:33 PM EDT) Sedimentation Rate Automated 6 0 - 15 mm/hr CERNER MILLENNIUM Blood specimen (specimen) 06/13/2014 4:33 PM EDT 06/13/2014 4:42 PM EDT Narrative Resulting Agency Comment Spec In Lab Alvaro Cam MD HEMATOLOGY ORDERABLE S Performing Organization Address [facility] de Phone Number CERINO WOOTENENNIUM * Hepatic Function Panel (06/13/2014 4:33 PM EDT) Protein, Total 7.0 6.4 - 8.3 gm/dL CERNER MILLENNIUM Albumin 4.4 3.2 - 5.2 gm/dL CERNER MILLENNIUM Aspartate Aminotransferase 21 0 - 39 unit/L CERNER MILLENNIUM Alanine Aminotransferase 22 0 - 55 unit/L CERNER MILLENNIUM Alkaline Phosphatase 54 40 - 120 unit/L CERNER MILLENNIUM Bilirubin, Total 0.4 0.2 - 1.3 mg/dL CERNER MILLENNIUM Bilirubin, Direct 0.1 0.0 - 0.3 mg/dL CERNER MILLENNIUM Blood specimen (specimen) 06/13/2014 4:33 PM EDT 06/13/2014 4:42 PM EDT Narrative Resulting Agency Comment Spec In Lab Alvaro Cam MD CHEMISTRY ORDERABLES Performing Organization Address [facility] de Phone Number GHAZALA WOOTENENNIUM * (ABNORMAL) Basic Metabolic Panel (non-fasting) (06/13/2014 4:33 PM EDT) Pathologist [facility] Glucose 92 60 - 199 mg/dL CERNER MILLENNIUM Comment:Diabetes: >=200 mg/d L plus symptoms Blood Urea Nitrogen 6(L) 10 - 20 mg/dL CERNER MILLENNIUM Creatinine 1.17 0.80 - 1.50 mg/dL CERNER MILLENNIUM Comment: Please note that the pediatric reference intervals supplied above were not validated at [facility]. Results from pediatric patients should be interpreted in conjunction to the patient's age, height and muscle mass. Sodium 141 135 - 145 mmol/L CERNER MILLENNIUM Potassium 4.8 3.5 - 5.0 mmol/L CERNER MILLENNIUM Comment: Please note: ??Patients with WBC >100,000 may have falsely elevated Potassium levels. ??For accurate Potassium quantification in these patients send serum separator tube (gold top) for subsequent determinations. ??Contact the Clinical Chemistry Laboratory if there are any questions. Chloride 103 98 - 107 mmol/L CERNER MILLENNIUM Carbon Dioxide 27 22 - 31 mmol/L CERNER MILLENNIUM Anion Gap 11 5 - 15 mmol/L CERNER MILLENNIUM Calcium 9.9 8.5 - 10.5 mg/dL CERNER MILLENNIUM Est Glomerular Filtration Rate >60 >=60 CERNER MILLENNIUM Comment: This estimated GFR [...] the following links into your internet browser. http://[employer]/DHnkdep http://[employer]/DHnkf Blood specimen (specimen) 06/13/2014 4:33 PM EDT 06/13/2014 4:42 PM EDT Narrative Resulting Agency Comment Spec In Lab Alvaro Cam MD CHEMISTRY ORDERABLES [facility] * Uric acid (06/13/2014 4:33 PM EDT) Uric Acid 3.8 3.5 - 8.5 mg/dL GHAZALA ELAM Blood specimen (specimen) 06/13/2014 4:33 PM EDT 06/13/2014 4:42 PM EDT Narrative Resulting Agency Comment Spec In Lab Alvaro Cam MD CHEMISTRY ORDERABLES [facility] documented in this encounter Visit Diagnoses Diagnosis Gout- Primary Gout, unspecified Vitamin D deficiency Unspecified vitamin D deficiency documented in this encounter Care Teams Rigging Supervisor Relationship Specialty Start Date End Date Alek Esparza MD [address] [place] [phone] PCP - General 09/03/10 04/05/23 documented as of this encounter
--- OUTSIDE RECORDS SUMMARY | 2024-08-29 14:15 | XMS_ITS | Encounter Summary ---
Author Organization [facility] Address [facility] [place] [address] Care Team Providers Care Cheese Blender Name Role Phone Alek Esparza MD Primary Care Provider Reason for Referral * Surgical (Routine) - Closed Specialty Diagnoses / Procedures Referred By Contac t Referred To Contact Pain Management Diagnoses Radiculopathy of cervical region Procedures PRO INJECTION DX/THER SBST INTRLMNR CRV/THRC W/IMG GDN Alek Arellano PA [facility] [place] [place] [address] [facility] [address] [place] [phone] Referral ID Status Reason Start Date Expiration Date V isits Requested Visits Authorized [id number] Closed Consult, Test & Treat 04/30/2017 04/30/2018 1 1 Encounter Details Date Type Department Care Team (Late st Contact Info) Description 04/30/2017 Telephone [place] [address] Alek Arellano PA [facility] [place] [address] Social History Tobacco Use Types Packs/Day Years [...] encounter Miscellaneous Notes * Telephone Encounter - Alek Arellano PA - 04/30/2017 9:14 AM EDT I spoke with Mr. Esteban today. He is feeling better as fall as his illness. His arm pain/discomfort is no better. We discussed cervical injection and he would like to proceed. Referral will be placed.If he does not receive benefit follow up with Dr. Perdue is reasonable. documented in this encounter Plan of Treatment Scheduled Referrals Name Type Priority Associated Diagnoses Orde r Schedule Referral to Pain Clinic Outpatient Referral Routine Radiculopathy of cervical region Ordered: 04/30/2017 documented as of this encounter Visit Diagnoses Diagnosis Radiculopathy of cervical region Brachial neuritis or radiculitis nos documented in this encounter Care Teams Cheese Blender Relationship Specialty Start Date End Date Alek Esparza MD [address] [place] [phone] PCP - General 09/03/10 04/05/23 documented as of this encounter
--- OUTSIDE RECORDS SUMMARY | 2024-08-29 14:15 | XMS_ITS | Encounter Summary ---
Author Organization [facility] Address [facility] [place] [address] Care Team Providers Care Health Outreach Worker Name Role Phone Alek Esparza MD Primary Care Provider [phone] Reason for Visit * Reason Onset Date Comments Post-op Problem 11/08/2014 incision Encounter Details Date Type Department Care Team (Late st Contact Info) Description 11/08/2014 Telephone [place] [phone] Anupama Howard MD [facility] [place] [address] Post-op Problem (incision) Social History Tobacco Use Types Packs/Day Years [...] encounter Miscellaneous Notes * Telephone Encounter - Felisa Kelley RN - 11/10/2014 3:02 PM EST Caller: Patient 11/10/14 Learning Needs Assessment Reviewed: No Subjective Patient presents with: Post-op Problem: incision Objective/Assessment Patient went to PCP on Thursday11/08/14 and received an IM injection of Rocephin and started on Clindamycin 300 mg po QID. Patient states no more drainage, redness and hotness gone. Elbow remains swollen. Patient has an appointment on Thursday with recheck with PCP. If not better patient will call and be seen here. Pertinent Past Surgical History: Procedure(s): 10/16/14 EXCISION OF OLECRANON BURSA EXCISION OF PROXIMAL ULNA ENTHESOPHYTE REPAIR DISTAL TRICEPS TENDON Plan Continue antibiotics, try elevation and ice to elbow to decrease swelling. If not improved will call to be seen here. Dr. Howard aware * Telephone Encounter - Salud Real - 11/10/2014 2:10 PM EST Enoc is calling back, he is stating the redness is gone, swelling has gone down some but still swollen pretty good. Not a lot of pain left but it feels tight- no longer hot to the touch. Please call back [phone] * Telephone Encounter - Felisa Kelley RN - 11/08/2014 3:13 PM EST Caller: Patient Learning Needs Assessment Reviewed: No Subjective Patient presents with: Post-op Problem: incision Objective/Assessment: Patient calls after getting home from work and taking off elbow dressing. Elbow has gotten significantly more swollen and red. Small amount drainage on bandaid yellow in color. PCP cant see him until4:30 tomorrow. Pertinent Past Surgical History: 10/16/14 bursa excision Plan I advised him not to wait until tomorrow PCP appointment. I advised him to come to the ED, due to distance he would prefer to go to his local ED. * Telephone Encounter - Felisa Kelley RN - 11/08/2014 1:21 PM EST Caller: Patient Learning Needs Assessment Reviewed: No Subjective Patient presents with: Post-op Problem: incision Objective/Assessment: Patient calls to state after using his hand to prevent himself from falling (causing elbow to straighten quickly) he developed a small open area at distal end. Now it is sl red and draining liquid. Patient asks that we send a antibiotic script as he does not want to drive here. I told him we would need to see him in the clinic to visualize incision and determine if a anti-biotic was needed. I gave him another option of calling his PCP to see if he would look at it. Pertinent Past Surgical History: Procedure(s): 10/16/14 EXCISION OF OLECRANON BURSA EXCISION OF PROXIMAL ULNA ENTHESOPHYTE REPAIR DISTAL TRICEPS TENDON Plan Patient will call his PCP to see if he can get an appointment, if not he will call back to be seen here. * Telephone Encounter - Kash Morales - 11/08/2014 11:15 AM EST When was your procedure? 10/16/14 Who was your surgeon? Dr. Howard What procedure did you have done? Right elbow surgery What is the question you would like to ask the nurse? Red swelling and hole with puss draining. Best number to reach you # [phone] The nurse will be text paged and will call you within the hour. documented in this encounter Plan of Treatment Not on file documented as of this encounter Visit Diagnoses Not on filedocumented in this encounter Care Teams Health Outreach Worker Relationship Specialty Start Date End Date Alek Esparza MD [address] [place] [phone] PCP - General 09/03/10 04/05/23 documented as of this encounter
--- OUTSIDE RECORDS SUMMARY | 2024-08-29 14:15 | XMS_ITS | Encounter Summary ---
Author Organization [facility] Address [facility] [place] [address] Care Team Providers Care Medical Staff Credentialing Coordinator Name Role Phone Alek Esparza MD Primary Care Provider [phone] Reason for Visit * Reason Comments Medication Refill Encounter Details Date Type Department Care Team (Late st Contact Info) Description 02/15/2014 [place] [address] [facility] [place] [address] Social History Tobacco Use Types Packs/Day Years [...] filedocumented in this encounter Care Teams Medical Staff Credentialing Coordinator Relationship Specialty Start Date End Date Alek Esparza MD [address] [place] [phone] PCP - General 09/03/10 04/05/23 documented as of this encounter
--- OUTSIDE RECORDS SUMMARY | 2024-08-29 14:15 | XMS_ITS | Encounter Summary ---
Author Organization [facility] [place] [address] Care Team Providers Care Reroller Hand Name Role Phone Alek Esparza MD Primary Care Provider [phone] Reason for Visit * Reason Comments Follow Up Surgery DOS 10/16/14 R elbow r emoval of mass bursa Encounter Details Date Type Department Care Team (Late st Contact Info) Description 11/02/2014 7:30 AM EST Office Visit [place] [address] Ratna Marlow PA [address] [place] [address] [place] [address] Pain in right elbow Discharge Disposition: Home [...] Sign Reading Time Taken Comments Blood Pressure 124/79 11/02/2014 8:08 AM EST Pulse 85 11/02/2014 8:08 AM EST Temperature - - Respiratory Rate - - Oxygen Saturation - - Inhaled Oxygen Concentration - - Weight 104.3 kg (230 lb) 11/02/2014 8:08 AM EST stated Height 180.3 cm (5' 11) 11/02/2014 8:08 AM EST satted Body Mass Index 32.08 11/02/2014 8:08 AM EST documented in this encounter Progress Notes * Ratna Marlow PA - 11/02/2014 8:16 AM EST Enoc comes in today 17 days post excision of olecranon bursa repair of distal triceps tendon and excision of proximal ulnar enthesophyte by Dr. Howard. He is doing well. He really has no complaints or concerns. Examination today of his right elbow shows there is much less swelling than on examination last week. No erythema or warmth. He denies any fever, chills, or constitutional symptoms. The elbow is nontender. He lacks just a couple of degrees of extension and flexion. All sutures were removed. The patient will continue with the elbow pad or a light compressive dressing during activities. He may now get this wet in the shower. I do not want him soaking it in a tub for the next 48 hours. He will follow up next month as previously scheduled. If he is doing well, he may call and cancel. documented in this encounter Plan of Treatment Not on file documented as of this encounter Visit Diagnoses Diagnosis Pain in right elbow Pain in joint, upper arm documented in this encounter Care Teams Reroller Hand Relationship Specialty Start Date End Date Alek Esparza MD [address] [place] [phone] PCP - General 09/03/10 04/05/23 documented as of this encounter
--- OUTSIDE RECORDS SUMMARY | 2024-08-29 14:15 | XMS_ITS | Encounter Summary ---
Author Organization [facility] Address [facility] [place] [address] Care Team Providers Care Dog Barber Name Role Phone Alek Esparza MD Primary Care Provider [phone] Reason for Visit * Reason Comments Follow-up Encounter Details Date Type Department Care Team (Late st Contact Info) Description 07/20/2017 9:00 AM EDT Office [place] [phone] Alvaro Cam MD [facility] [place] [address] Idiopathic gout, unspecified chronicity, unspecified site; Vitamin D deficiency; Hyperuricemia Social History Tobacco Use Types Packs/Day Years [...] Sign Reading Time Taken Comments Blood Pressure 102/78 07/20/2017 8:48 AM EDT Pulse 75 07/20/2017 8:48 AM EDT Temperature - - Respiratory Rate 18 07/20/2017 8:48 AM EDT Oxygen Saturation 99% 07/20/2017 8:48 AM EDT Inhaled Oxygen Concentration - - Weight 101.6 kg (224 lb) 07/20/2017 8:48 AM EDT Height 180.3 cm (5' 11) 07/20/2017 8:48 AM EDT Body Mass Index 31.24 07/20/2017 8:48 AM EDT documented in this encounter Patient Instructions * Patient Instructions* Alvaro Cam MD - 07/20/2017 9:00 AM EDT 1) Discontinue febuxostat. 2) Continue daily losartan, 50 mg. 3) Re-start daily allopurinol, 300 mg in four days (on Thursday). 4) Check labs today. ?? 5) Return to follow up in 3-4 months. documented in this encounter Progress Notes * Alvaro Cam MD - 07/20/2017 9:00 AM EDT REASON FOR VISIT: Follow up for tophaceous gout and hyperuricemia. ?? INTERVAL HISTORY: ?? The pt was a 57-year-old male who returned for a follow up of tophaceous gout and hyperuricemia. The pt noted that since his last visit on March 31, 2016, he continued to be on daily febuxostat, 80 mg in conjunction with daily losartan, 50 mg for his tophaceous gout and hyperuricemia. He was not using prednisone for additional symptomatic control. He had one episode of acute gout flare in the spring. He tolerated febuxostat without any fever, chest pain, dyspnea, nausea, dysuria, rash, blood clots, polydipsia, dizziness, or mood change. He did wish to switch from febuxostat to a different agent as febuxostat had a very high copay of about $800 per month. Laboratory studies o btained after his last visit showed that his uric acid level was 4.6. ?? PAST MEDICAL HISTORY: Hypertension ?? Tophaceous [...] anterior cervical fusion with anterior cervical diskectomy ? MEDICATIONS: ?? I reviewed pt's medication entries on electronic record. ? ALLERGIES: ?? NKDA ? SOCIAL HISTORY: ?? Alcohol: Regular beer use on weekend. Pt denied any use of tobacco products. Marijuana use. He was with the same female partner for 24 years, with two children. He was currently living with his partner. 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 ?? FAMILY HISTORY: ?? Mother - Unknown, alive at the age of 66. ?? Father - Prostate cancer, alive at the age of 68. ? PHYSICAL EXAMINATION: ?? Vitals 07/20/2017 SYSTOLIC 102 DIASTOLIC 78 PULSE 75 RESPIRATIONS 18 Height (Guyanese) 5' 11 Height (Metric) 180.3 cm Weight (Guyanese) 224 lbs Weight (Metric) 101.606 kg BODY MASS INDEX 31.24 kg/m2 Pulse Oximetry 99 General - Alert, co-operative, no apparent distress, oriented x 3. ?? HEENT - Conjunctiva pink and non-injected, no sclerae icterus or malar rash. ?? Heart - Regular rate and rhythm; normal S1 and S2; no murmurs, rubs, or gallops. ?? Lungs - Symmetric, no respiratory distress, clear to ascultation bilaterally. ?? Abdomen - Soft non-tender, non-distended, bowel sound present. ?? Extremities - Upper extremities: FROM of all joints; + bilateral Dupuytren's contracture in both palms, which are non-tender on palpation; no joint tenderness on palpation; no signs of synovitis, soft tissue swelling, or joint effusion; no clubbing, cyanosis, or edema. ?? Skin - Smooth and intact, no rash, tophus deposition, telangiectasia on skin or at all nail marginsor sclerodactyly. ?? Psych - Normal affect. ? IMPRESSION: ?? 1) Tophaceous gout and 2) marked hyperuricemia in a 57-year-old male. The pt had significantly elevated uric acid level and recurrent gout after he discontinued febuxostat and losartan on his own in January 2015. He is a candidate for life-long therapy with a uricosuric agent due to his tophaceous gout and marked hyperuricemia. The goal of serum uric acid level for this pt is 5.0. The pt wish to undergo another trial of daily allopurinol as the [id number] copay of $800 per month for febuxostat was too much for him. He will discontinue febuxostat now and re-start allopurinol in fourdays (Thursday) in conjunction with daily losartan, 50 mg. He will undergo repeat laboratory studies today. ?? 3) Hypertension. The pt's blood pressure elevated since he discontinued losartan, which is also a uricosuric agent. His blood pressure is under good control after he resumed losartan, he will continue losartan for now. ?? 4) Vitamin D deficiency. The pt will undergo laboratory studies to evaluate for his vitamin D deficiency. ?? RECOMMENDATIONS: ?? 1) Discontinue febuxostat. 2) Continue daily losartan, 50 mg. 3) Re-start daily allopurinol, 300 mg in four days (on Thursday). 4) Check labs today. ?? 5) Return to follow up in 3-4 months. ? Alvaro Cam MD, PhD documented in this encounter Plan of Treatment Not on file documented as of this encounter Procedures Procedure Name Priority Date/Time Associated Diagnosis Comments CRP, ACUTE INFLAMMATION Routine 07/20/2017 9:32 AM EDT Idiopathic gout, unspecified chronicity, unspecified site HEMOGRAM Routine 07/20/2017 9:32 AM EDT Idiopathic gout, unspecified chronicity, unspecified site DIFFERENTIAL, AUTOMATED Routine 07/20/2017 9:32 AM EDT Idiopathic gout, unspecified chronicity, unspecified site VITAMIN D, 25-HYDROXY Routine 07/20/2017 9:32 AM EDT Idiopathic gout, unspecified chronicity, unspecified site Vitamin D deficiency SEDIMENTATION RATE Routine 07/20/2017 9: 32 AM EDT Idiopathic gout, unspecified chronicity, unspecified site CBC (WITH DIFF) Routine 07/20/2017 9:32 AM EDT Idiopathic gout, unspecified chronicity, unspecified site URIC ACID Routine 07/20/2017 9:32 AM EDT Idiopathic gout, unspecified chronicity, unspecified site COMPREHENSIVE METABOLIC PANEL Routine 07/20/2017 9:32 AM EDT Idiopathic gout, unspecified chronicity, unspecified site documented in this encounter Results * (ABNORMAL) Differential, Automated (07/20/2017 9:32 AM EDT) Neutrophil % 62.3 % [facility] Neutrophil Absolute 6.71(H) 1.70 - 6.10 x10(3)/mc L [facility] Lymph % 24.6 % [facility] Lymphocytes Abs 2.6 0.9 - 3.2 x10(3)/mc L [facility] Monocyte % 10.6 % [facility] Monocyte Abs 1.1(H) 0.3 - 0.9 x10(3)/mc L [facility] Eos % 1.4 % [facility] Eosinophils Abs 0.2 0.0 - 0.4 x10(3)/mc L [facility] Basophil % 0.8 % [facility] Baso Absolute 0.1 0.0 - 0.1 x10(3)/mc L [facility] Immature Gran % 0.30 % [facility] Comment: Immature granulocytes(IG's)percentage and absolute count will include metamyelocytes, myelocytes, and promyelocytes. Blood smears from CBCs yielding IG's will be scanned manually for concordance. If this scan disagrees with the automated IG or if promyelocytes are noted, a manual differential will be performed. Immature Gran Absolute 0.03 0.00 - 0.04 x10(3)/mc L [facility] Blood specimen (specimen) 07/20/2017 9:32 AM EDT 07/20/2017 9:48 AM EDT Narrative Resulting Agency Comment Spec In Lab Alvaro Cam MD HEMATOLOGY ORDERABLE S [facility] [place] [address] * (ABNORMAL) Hemogram (07/20/2017 9:32 AM EDT) White Blood Cell 10.8(H) 4.0 - 9.5 x10(3)/mc L [facility] Red Blood Cell 5.08 4.58 - 5.54 x10(6)/mc L [facility] Hemoglobin 17.4(H) 13.7 - 16.5 gm/dL [facility] Hematocrit 49.5(H) 40.5 - 48.5 % [facility] Mean Cell Volume 97.4(H) 82.9 - 93.1 fL [facility] Mean Cell Hemoglobin 34.3(H) 27.5 - 32.1 pg [facility] Mean Cell Hemoglobin Concentration 35.2 32.0 - 35.7 gm/dL [facility] Platelet 282 145 - 357 x10(3)/mc L [facility] RDW Standard Deviation 46.3(H) 36.0 - 45.0 [facility] RDW coefficient of variation 12.8 11.4 - 13.8 % [facility] Mean Platelet Volume 10.2 7.6 - 12.9 fL [facility] NRBC% auto 0.0 % [facility] NRBC Absolute 0.000 0.000 - 0.000 x10(3)/mc L [facility] Blood specimen (specimen) 07/20/2017 9:32 AM EDT 07/20/2017 9:48 AM EDT Narrative Resulting Agency Comment Spec In Lab Alvaro Cam MD HEMATOLOGY ORDERABLE S Performing Organization Address City/[facility]/ZIP Co de Phone Number [facility] [place] [address] * CRP, acute inflammation (07/20/2017 9:32 AM EDT) C-Reactive Protein 1.1 <=4.9 mg/L [facility] Blood specimen (specimen) 07/20/2017 9:32 AM EDT 07/20/2017 9:48 AM EDT Narrative Resulting Agency Comment Spec In Lab Alvaro Cam MD CHEMISTRY ORDERABLES Performing Organization Address [facility] Co de Phone Number [facility] [place] [address] * Uric acid (07/20/2017 9:32 AM EDT) Uric Acid 4.2 3.5 - 8.5 mg/dL [facility] Blood specimen (specimen) 07/20/2017 9:32 AM EDT 07/20/2017 9:48 AM EDT Narrative Resulting Agency Comment Spec In Lab Alvaro Cam MD CHEMISTRY ORDERABLES Performing Organization Address [facility] Co de Phone Number [facility] [place] [address] * Vitamin D, 25-Hydroxy (07/20/2017 9:32 AM EDT) Vitamin D Total 25 OH 30 30 - 100 ng/mL [facility] Comment: Deficient <10 ng/mL Insufficient 10 to 29 ng/mL Sufficient 30 to 100 ng/mL Potential Intoxication >100 ng/mL According to the [place] National Osteoporosis Foundation, Vitamin D concentrations >30 ng/mL are sufficient to protect bone health. ??The National Kidney Foundation has similarly stated that patients with Vitamin D concentrations <30ng/mL should be considered to be insufficient or deficient. http://EPV SOLAR.Adhere2Care/nkf-guidelines http://EPV SOLAR.Adhere[employer]Care/nejm-VitD The IDS iSYS Vitamin D Immunoassay detects both 25-OH Vitamin D2 and 25-OH Vitamin D3, but only a total Vitamin D concentration is reported. Blood specimen (specimen) 07/20/2017 9:32 AM EDT 07/20/2017 1:37 PM EDT Narrative Resulting Agency Comment Spec In Lab Alvaro Cam MD CHEMISTRY ORDERABLES Performing Organization Address [facility] Co de Phone Number [facility] [place] [address] * Sedimentation rate (07/20/2017 9:32 AM EDT) Sedimentation Rate Automated 4 0 - 15 mm/hr [facility] Blood specimen (specimen) 07/20/2017 9:32 AM EDT 07/20/2017 9:48 AM EDT Narrative Resulting Agency Comment Spec In Lab Alvaro Cam MD HEMATOLOGY ORDERABLE S Performing Organization Address [facility] Co de Phone Number [facility] [place] [address] * (ABNORMAL) Comprehensive metabolic panel (non-fasting) (07/20/2017 9:32 AM EDT) [facility] Signature Glucose 171 65 - 199 mg/dL [facility] Comment:Diabetes: >=200 mg/d L plus symptoms Blood Urea Nitrogen 8(L) 10 - 20 mg/dL [facility] Creatinine 1.31 0.80 - 1.50 mg/dL [facility] Comment: Please note that the pediatric reference intervals supplied above were not validated at [facility]. Results from pediatric patients should be interpreted in conjunction to the patient's age, height and muscle mass. Sodium 139 135 - 145 mmol/L [facility] Potassium 4.3 3.5 - 5.0 mmol/L [facility] Comment: Please note: ??Patients with WBC >100,000 may have falsely elevated Potassium levels. ??For accurate Potassium quantification in these patients send serum separator tube (gold top) for subsequent determinations. ??Contact the Clinical Chemistry Laboratory if there are any questions. Chloride 100 98 - 107 mmol/L [facility] Carbon Dioxide 27 22 - 31 mmol/L [facility] Anion Gap 12 5 - 15 mmol/L [facility] Calcium 10.1 8.5 - 10.5 mg/dL [facility] Protein, Total 7.2 6.1 - 8.0 gm/dL [facility] Albumin 4.3 3.2 - 5.2 gm/dL [facility] Aspartate Aminotransferase 28 0 - 39 unit/L [facility] Alanine Aminotransferase 26 0 - 55 unit/L [facility] Alkaline Phosphatase 48 40 - 120 unit/L [facility] Bilirubin, Total 0.7 0.2 - 1.3 mg/dL [facility] Est Glomerular Filtration Rate 57(L) >=60 [facility] Comment: This estimated GFR (eGFR) value was [...] the following links into your internet browser. [email or web address] [email or web address] [email or web address] [email or web address] Blood specimen (specimen) 07/20/2017 9:32 AM EDT 07/20/2017 9:48 AM EDT Narrative Resulting Agency Comment Spec In Lab Alvaro Cam MD CHEMISTRY ORDERABLES [facility] [place] [address] documented in this encounter Visit Diagnoses Diagnosis Idiopathic gout, unspecified chronicity, unspecified site Vitamin D deficiency Unspecified vitamin D deficiency Hyperuricemia Other abnormal blood chemistry documented in this encounter Care Teams Dog Barber Relationship Specialty Start Date End Date Alek Esparza MD [address] [place] [id number] PCP - General 09/03/10 04/05/23 documented as of this encounter
--- OUTSIDE RECORDS SUMMARY | 2024-08-29 14:15 | XMS_ITS | Encounter Summary ---
Author Organization [facility] Address [facility] [place] [address] Care Team Providers Care Edge Drummer Name Role Phone Alek Esparza MD Primary Care Provider [phone] Reason for Visit * Reason Comments Right Elbow Pain 10/16/2014 exc prox ulna entesophyte Encounter Details Date Type Department Care Team (Late st Contact Info) Description 11/24/2014 8:15 AM EST Office [place] [phone] Anupama Howard MD [facility] [place] [address] History of elbow surgery, right Dr. Howard, 10/16/2014 exc prox ulna entesophyte Discharge Disposition: Home Social History Tobacco Use [...] Sign Reading Time Taken Comments Blood Pressure 96/82 11/24/2014 8:43 AM EST Pulse 83 11/24/2014 8:43 AM EST Temperature - - Respiratory Rate - - Oxygen Saturation - - Inhaled Oxygen Concentration - - Weight 104.3 kg (230 lb) 11/24/2014 8:43 AM EST Height 180.3 cm (5' 11) 11/24/2014 8:43 AM EST Body Mass Index 32.08 11/24/2014 8:43 AM EST documented in this encounter Progress Notes * Kaitlyn Bryan, MONITORING ANALYST - 11/24/2014 8:55 AM EST Chief Complaint: Planned post op appointment Pertinent Surgical History: DOS: 10/16/2014 Dr. Howard Procedure(s): EXCISION OF OLECRANON BURSA EXCISION OF PROXIMAL ULNA ENTHESOPHYTE REPAIR DISTAL TRICEPS TENDON HPI: Enoc comes in today 5 weeks status post excision of olecranon bursa repair of distal triceps tendon and excision of proximal ulnar enthesopathy by Dr. Howard. He was doing extremely well until a recent set back a few weeks ago ~ 11/08/2014 when he inadvertently slipped on ice and domenica his right elbow he did experience some increased pain, warmth, swelling of the right olecranon bursal region. There was also reported clear drainage from his surgical incision. His PCP did evaluate his elbow and treated him with IM rocephin and a 7 day course of clindamycin. He feels much better and is no longerexperiencing any drainage from his surgical incision. ROM and Pain are not limiting factors at thistime. He tells me that he is sleeping much better. No fevers or chills. No systemic complaints. No constitutional complaints. No numbness or tingling distal to his surgical incisions. His health has been stable otherwise. ROS: Denies fever, chills, nausea, vomiting, vision change, shortness of breath, chest pain, visionchanges, headaches, bowel or bladder problem, ear, nose, sinus problem, neuro or psychiatric, or endocrine disorder not addressed above. Problem list reviewed in EDH Medication list is reconciled in EDH No Known Allergies Family and Social History unchanged Physical Examination: Filed Vitals: 11/24/14 0843 BP: 96/82 Pulse: 83 Height: 180.3 cm (5' 11) Weight: 104.327 kg (230 lb) Body mass index is 32.09 kg/(m^2). General: Very pleasant 54 year old Male in NAD. Alert and oriented X3. Non-toxic appearing . Neck: Full ROM. Negative Spurling's Chest: RR: 12. Non-labored. Ortho: Right elbow this is a tiny healing scab at the most superior aspect of the surgical incision. No drainage. No evidence of infection. No cellulitis. NO bursal swelling. No fluctuance. Painless active and passive ROM. ROM: 0-140. Pronation and supination are tolerated well. No collateral ligament instability. Neurologic examination of the upper extremity is intact with normal motor function of the radial, median, ulnar, axillary and musculocutaneous nerves. Sensory function is intact in the radial, median, ulnar, axillary, and lateral antebrachial cutaneous nerve distributions. The hand was well perfused. Radial pulses are 2+ and equal bilateral. X-ray: Not indicated. Impression: 54 year old Male s/p above procedure clinically feeling much better with a minor set back after above mentioned jarring injury. No evidence of complications noted today. Plan: He can gradually return to full activity. He will monitor the small residual healing scab. Call immediately for any redness, swelling or warmth. HEELBO for protection PRN. Cool packs prn. At this time, he can follow up on a PRN basis. Pt agrees, questions solicited/answered, will return as scheduled and as needed for concerns or questions. Pt understands they may also call us prn for above. documented in this encounter Plan of Treatment Not on file documented as of this encounter Visit Diagnoses Diagnosis History of elbow surgery, right Dr. Howard, 10/16/2014 exc prox ulna entesophyte Personal history of surgery to other organs documented in this encounter Care Teams Edge Drummer Relationship Specialty Start Date End Date Alek Esparza MD [address] [place] [phone] PCP - General 09/03/10 04/05/23 documented as of this encounter
--- OUTSIDE RECORDS SUMMARY | 2024-08-29 14:15 | XMS_ITS | Encounter Summary ---
Author [place] [address] Care Team Providers Care Counter Stacker Name Role Phone Alek Esparza MD Primary Care Provider [phone] Reason for Visit * Reason Onset Date Comments Other 04/18/2016 [facility] Encounter Details Date Type Department Care Team (Late st Contact Info) Description 04/18/2016 Telephone [place] [phone] Shonna Cristina RN Other ([facility]) Social History Tobacco Use Types Packs/Day Years [...] encounter Miscellaneous Notes * Telephone Encounter - Shonna Cristina RN - 04/18/2016 11:50 AM EDT Pharmacist from [employer] called to see if [facility] rx can be changed to an 80 mg tablet because insurance will cover that way. Told her it is fine to do that. documented in this encounter Plan of Treatment Not on file documented as of this encounter Visit Diagnoses Not on filedocumented in this encounter Care Teams Counter Stacker Relationship Specialty Start Date End Date Alek Esparza MD [address] [place] [phone] PCP - General 09/03/10 04/05/23 documented as of this encounter
--- OUTSIDE RECORDS SUMMARY | 2024-08-29 14:15 | XMS_ITS | Encounter Summary ---
Author Organization [facility] Address [facility] [place] [address] Care Team Providers Care Fiberglass Tube Molder Name Role Phone Alek Esparza MD Primary Care Provider [phone] Encounter Details Date Type Department Care Team (Latest Contact Info) Description 01/03/2014 1:32 PM EDT - 01/03/2014 11:59 PM EDT Hospital Encounter XRay at [address] [place] [id number] Pain in right elbow Social History Tobacco Use Types Packs/Day Years [...] 10 mg by mouth nightly as needed. dicloxacillin (DYNAPEN) 250 mg capsule Take 1 capsule by mouth 4 times daily. 40 capsule 0 01/03/2014 03/20/2014 cyclobenzaprine (FLEXERIL) 5 mg tablet Take 1 tablet by mouth nightly. 30 tablet 3 01/03/2014 06/13/2014 losartan (COZAAR) 50 mg tablet TAKE ONE TABLET BY MOUTH EVERY DAY 60 tablet 3 07/28/2013 02/15/2014 predniSONE (DELTASONE) 5 mg tablet TAKE TWO TABLETS BY MOUTH EVERY DAY 60 tablet 1 04/27/2013 02/15/2014 febuxostat (ULORIC) tablet Take 2 tablets by mouth daily. 120 tablet 5 03/22/2013 03/20/2014 LORAZEPAM ORAL Take 1 tablet by mouth nightly. STATES TAKE ONE 15MG TABLET NIGHTLY 06/13/2014 hydroCODone-acetaminoph en (VICODIN) 5-500 mg per tablet Take 1-2 tablets by mouth every 6 hours as needed for Pain. 36 tablet 1 02/08/2013 10/16/2014 documented as of this encounter Plan of Treatment Not on file documented as of this encounter Procedures Procedure Name Priority Date/Time Associated Diagnosis Comments XR ELBOW 3 VIEW COMPLETE Routine 01/03/2014 1:39 PM EDT Pain in right elbow documented in this encounter Results * XR elbow 3 view complete (01/03/2014 1:39 PM EDT) Anatomical Region Laterality Modality Elbow N/A Radiographic Caro ging 01/03/2014 1:39 PM EDT Narrative 01/03/2014 4:41 PM EDT Examination ELBOW 3 VIEW COMPLETE/RIGHT Clinical History right elbow pain after a fall Comparison Elbow radiographs 08/04/2012. Technique Three-views of the right elbow. Findings No dislocation or effusion. There is a 1.3 centimeter olecranon enthesophyte at the site of the triceps tendon insertion which was present on prior. subtle incomplete lucency through the posterior aspect of the base of the enthesophyte is unchanged. No acute fracture seen. ??There is soft tissue swelling along the posterior elbow where there is similar appearance on otherwise masslike soft tissue prominence with increased density overlying the olecranon, which would be in keeping with the patient's history of tophaceous gout. ??No discrete underlying erosion. ?? Impression ? 1. No acute fracture, dislocation, elbow joint effusion. ? 2. Masslike soft tissue prominence overlying the olecranon, which would be in keeping with the patient's history of known tophaceous gout with superimposed posterior soft tissue swelling. Film and interpretation reviewed by the attending Procedure Note Chao Roy MD - 01/03/2014 Examination ELBOW 3 VIEW COMPLETE/RIGHT Clinical History right elbow pain after a fall Comparison Elbow radiographs 08/04/2012. Technique Three-views of the right elbow. Findings No dislocation or effusion. There is a 1.3 centimeter olecranonenthesophyte at the site of the triceps tendon insertion which was present on prior. ASsubtle incomplete lucency through the posterior aspect of the base of theenthesophyte is unchanged. No acute fracture seen. There is soft tissue swelling alongthe posterior elbow where there is similar appearance on otherwise masslikesoft tissue prominence with increased density overlying the olecranon, whichwould be in keeping with the patient's history of tophaceous gout. No discrete underlying erosion. Impression 1. No acute fracture, dislocation, elbow joint effusion. 2. Masslike soft tissue prominence overlying the olecranon, whichwould be in keeping with the patient's history of known tophaceous gout with superimposed posterior soft tissue swelling. Film and interpretation reviewed by the attending Alvaro Cam MD IMG DX ORDERABLES documented in this encounter Visit Diagnoses Diagnosis Pain in right elbow Pain in joint, upper arm documented in this encounter Care Teams Fiberglass Tube Molder Relationship Specialty Start Date End Date Alek Esparza MD [address] [place] [phone] PCP - General 09/03/10 04/05/23 documented as of this encounter
--- OUTSIDE RECORDS SUMMARY | 2024-08-29 14:15 | XMS_ITS | Encounter Summary ---
Author Organization [facility] Address [facility] [place] [address] Care Team Providers Care Repairer Switchgear Name Role Phone Alek Esparza MD Primary Care Provider [phone] Reason for Visit * Reason Comments Right Elbow Pain Encounter Details Date Type Department Care Team (Late st Contact Info) Description 10/03/2014 2:05 PM EST Office [place] [phone] Anupama Howard MD [facility] DR [place] [address] Olecranon bursitis, right [415.64] Discharge Disposition: Home Social History Tobacco Use [...] Sign Reading Time Taken Comments Blood Pressure 122/78 10/03/2014 1:52 PM EST Pulse 79 10/03/2014 1:52 PM EST Temperature - - Respiratory Rate - - Oxygen Saturation - - Inhaled Oxygen Concentration - - Weight 104.3 kg (230 lb) 10/03/2014 1:52 PM EST stated Height 180.3 cm (5' 11) 10/03/2014 1:52 PM EST stated Body Mass Index 32.08 10/03/2014 1:52 PM EST documented in this encounter Progress Notes * Audra Delacruz RN - 10/03/2014 2:14 PM EST Pre- op teaching for elbow surgery(dertails to be determined) . Emphasis placed on post op hand elevation with hand above heart,fingers above palm,palm above wrist , wrist above elbow and elbow above heart.. This was demonstrated. Stressed no lifting of operative extremity. Reviewed suggestions for taking post op pain medication. Questions solicited and answered to patient satisfaction. Written material provided. Patient knows to call with any additional questions or concerns. * Anupama Howard MD - 10/03/2014 2:12 PM EST Enoc Esteban returns today for follow up of Right elbow olecranon bursitis. He is doing Worse thanwhen I last saw him. He has more pain in the elbow. There are no skin breaks or drainage currently.He denies any fevers or chills. On physical examination, the patient is alert, oriented, and in no apparent distress. he has a large olecranon bursitis with nodularity is palpable. There is no obvious infection. His triceps is normal in strength. He does have a large olecranon and has a slight that is palpable. New studies: None obtained Impression: We talked again about his options. He wants to proceed with excision of olecranon bursa, removal of the olecranon calcified, and possible primary triceps repair if necessary. He understands that if the triceps does require repair this will keep him from doing any lifting, pushing, pulling, or vigorous activity for about 3 months with that arm. We went through the risks of surgery as listed on the informed consent, which he signed. All his questions were answered. He wishes to proceed. This note was created with [employer] voice recognition software. documented in this encounter Plan of Treatment Not on file documented as of this encounter Visit Diagnoses Diagnosis Olecranon bursitis, right [726.33] documented in this encounter Care Teams Repairer Switchgear Relationship Specialty Start Date End Date Alek Esparza MD [address] [place] [phone] PCP - General 09/03/10 04/05/23 documented as of this encounter
--- OUTSIDE RECORDS SUMMARY | 2024-08-29 14:15 | XMS_ITS | Encounter Summary ---
Author Organization [facility] Address [facility] [place] [address] Care Team Providers Care Artificial Candy Maker Name Role Phone Alek Esparza MD Primary Care Provider [phone] Reason for Visit * Reason Comments Right Elbow Pain Encounter Details Date Type Department Care Team (Late st Contact Info) Description 06/13/2014 2:25 PM EDT Office [place] [phone] Anupama Howard MD [facility] [place] [address] Pain in right elbow (Primary Dx); Tophaceous gout Discharge Disposition: Home Social History Tobacco Use [...] Sign Reading Time Taken Comments Blood Pressure 126/84 06/13/2014 3:15 PM EDT Pulse 64 06/13/2014 3:15 PM EDT Temperature - - Respiratory Rate - - Oxygen Saturation - - Inhaled Oxygen Concentration - - Weight 106.6 kg (235 lb) 06/13/2014 3:15 PM EDT Height 175.3 cm (5' 9) 06/13/2014 3:15 PM EDT Body Mass Index 34.7 06/13/2014 3:15 PM EDT documented in this encounter Progress Notes * Kaitlyn Bryan, GEAR TECHNICIAN - 06/13/2014 3:25 PM EDT Subjective: Chief Complaint: Established orthopaedic patient. 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 acute on chronic. Surgical Consult. Referral from Dr. Cam Rheumatology. HPI: Enoc Esteban is a 54 y.o. right hand dominant male, non-smoker, Non-diabetic who is referred by Dr. Cam for evaluation and treatment of a right acute on chronic olecranon bursitis/with documented history of + tophaceous gout. Dr. Cam has been following this problem since 2011 [place] [facility] [place] initial evaluation for polyarthropathy and right olecranon bursitis there was an aspirate to assist with a definitive diagnosis due to aforementioned polyarthropathy and at that time an aspirate was positive for Birefringent crystals consistent with monosodium urate viewed under microscopy. He at that t emi did relatively well with conservative measures. Until, Several months ago he did experience a mechanical fall ~ 2-3 feet while slipping on ice landing directly on the posterior aspect of his elbow. At the time of this injury, There was a ++ abrasion on his right posterior elbow as well as increased pain and swelling. He was evaluated by Dr. Cam in Rheumatology who obtained an x-ray which revealed a large olecranon spur yet no fracture. An aspiration after the aforementioned fall revealed ablood tinged aspirate consistent with probable hemorrhagic bursitis. There was no culture or gram stain obtained at that time. He was placed on a course of dicloxacillin for a presumed infection. Patient and his Medical record from his Scientific Affairs Manager report that his symptoms cleared. However, He isleft with a very painful elbow every time I bump by elbow he experiences a sharp and painful sensation. Pain confined to olecranon and also associated with point tenderness at the olecranon bursal region. There is no history of right posterior elbow fracture or dislocation. He states however that he has had chronic elbow bursitis that has been drained many times by outside providers as well. Patient denies history of prior problems with this elbow. Modalities thus far, as above, he reports having this problems drained a few times over the past few years both in rheumatology and by his PCP per pt report. He has no reported history of right posterior elbow infection. He is followed by Dr. Cam for gouty tophaceous gout with hyperuricemia that is reportedly responding to Uloric. He is currently without fevers, Chills, No systemic complaints and no constitutional complaints. He statesthat his health is stable otherwise. He is referred here today by Dr. Cam in consideration of surgical intervention. ROS: Denies fever, chills, nausea, vomiting, vision change, shortness of breath, chest pain, visionchanges, headaches, bowel or bladder problem, ear, nose, sinus problem, neuro or psychiatric, or endocrine disorder not addressed above. Outside reports reviewed: historical medical records. 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 Past Medical History: PAST MEDICAL/Surgical HISTORY: Hypertension Tophaceous gout Hyperuricemia Moderate vitamin D deficiency Asthma Lafleur's lung Obstructive sleep apnea S/p midshaft fracture of left 5th proximal phalanx, s/p closed reduction and percutaneous pinning (01/2013) S/p bilateral carpal tunnel S/p right femur fracture, s/p ORIF S/p ankle fracture S/p anterior cervical fusion with anterior cervical diskectomy Patient Active Problem List Diagnosis Date Noted ??? Pain in right elbow 06/13/2014 ??? Fracture of left small finger, proximal, closed 02/07/2013 ??? HTN (hypertension) 09/11/2012 ??? Tophaceous gout 09/11/2012 ??? Hyperuricemia 09/11/2012 ??? Mild vitamin D deficiency 09/11/2012 ??? Asthma 09/11/2012 ??? TYRON (obstructive sleep apnea) 09/11/2012 Additional Surgical History: Past Surgical History Procedure Date ??? Closed treat toe fx 02/08/2013 CLOSED TREATMENT FX PHALANX OR PHALANGES performed by Rohan Duarte MD at [facility] Family History: Father with prostate cancer. History Social History ??? Marital Status: Female Partner Spouse Name: N/A Number of Children: 2 Children ??? Years of Education: N/A Social History Main Topics ??? Smoking status: Never Smoker ??? Smokeless tobacco: Never Used ??? Alcohol Use: 9.0 oz/week 15 Cans of beer per week ??? Drug Use: Yes Special: Marijuana ??? Sexually Active: None No Known Allergies Objective: Filed Vitals: 06/13/14 1515 BP: 126/84 Pulse: 64 Height: 175.3 cm (5' 9) Weight: 106.595 kg (235 lb) Body mass index is 34.69 kg/(m^2). General: alert, appears stated age, cooperative, no distress and well developed, well-nourished. Non-toxic appearing . Neck: Full c-spine motion negative Spurling's test Chest: RR: 12. Non-labored. Gait: Normal Right Elbow Circulation: warm, well perfused, brisk capillary refill distal to elbow Skin: + Right posterior elbow with moderate swelling and knobby texture of the olecranon bursa consistent with tophaceous gout. No laceration, abrasion, ecchymosis. No evidence of infection. No cellulitis. No fluctuance. Edema: moderate swelling of the posterior surface as stated above. No obvious intra-articular effusion. Deformity: There is not an obvious deformity about the elbow Flexion ROM: 140 degrees Extension ROM: 0 degrees Pronation ROM: 70 degrees Supination ROM: 60 degrees Sensation: intact to light touch Tenderness: There is not tenderness of medial epicondyle. There is not tenderness of lateral epicondyle. Stress Exam: There is not tenderness with varus stress. 1-2 mm SEP There is not tenderness with valgus stress. 1-2 mm SEP Skin: Dry and intact. Neurologic examination of the upper extremity is intact with normal motor function of the radial, median, ulnar, axillary and musculocutaneous nerves. Sensory function is intact in the radial, median, ulnar, axillary, and lateral antebrachial cutaneous nerve distributions. The hand was well perfused. Radial pulses are 2+ and equal bilateral. Imaging 3 views of the right elbow with a large olecranon spur. NO fat pad sign. There is evidence of a large right elbow olecranon spur. No fracture or dislocation. Assessment: This is a 54 year old Male with right olecranon bursal swelling associated with documented tophaceous gout and radiographically a large olecranon spur. + symptomatic. + pain is interfering with his lifestyle. Clinically, No evidence of infection. Plan: H and P reviewed with DR. Howard. Clinical exam and radiographs reviewed. Treatment options from the least invasive to the most invasive were discussed. Surgical discussion with Dr. Howard included surgical excision of olecranon spur and bursectomy. At this time, Is interested in proceeding with surgical intervention albeit he does have plans to attend his Daughter's Wedding this fall and would like to schedule surgery for the beginning of the new year 2014. In the interim, He can apply cool packs.Heel vivi (he has at home), Avoidance of re-injury. Oral NSAID's prn. Patient information was given, and all his questions were answered fully. Dr. Howard will place the surgical booking forms and we will see him in Follow up: 3 months with no x-rays needed at that time. Sooner prn. 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
--- OUTSIDE RECORDS SUMMARY | 2024-08-29 14:15 | XMS_ITS | Encounter Summary ---
Author Organization [facility] Address [facility] [place] [address] Care Team Providers Care Bilingual Hr Generalist Name Role Phone Alek Esparza MD Primary Care Provider [phone] Reason for Visit * Reason Comments Medication Refill Encounter Details Date Type Department Care Team (Late st Contact Info) Description 10/17/2015 [place] [phone] Alvaro Cam MD [facility] [place] [address] Social History Tobacco Use Types Packs/Day Years [...] on filedocumented in this encounter Care Teams Bilingual Hr Generalist Relationship Specialty Start Date End Date Alek Esparza MD [address] [place] [phone] PCP - General 09/03/10 04/05/23 documented as of this encounter
--- OUTSIDE RECORDS SUMMARY | 2024-08-29 14:15 | XMS_ITS | Encounter Summary ---
Author [facility] [place] [address] Care Team Providers Care Ad Clerk Name Role Phone Alek Esparza MD Primary Care Provider [phone] Reason for Visit * Reason Onset Date Comments Other 01/05/2014 Encounter Details Date Type Department Care Team (Late st Contact Info) Description 01/05/2014 [place] [phone] Marti Leo, RN Other Social History Tobacco Use Types Packs/Day Years [...] encounter Miscellaneous Notes * Telephone Encounter - Marti Leo RN - 01/05/2014 8:49 AM EDT Rony Kidd, Please call this pt and let him know that his elbow X-ray did not show fracture. Please remind him to use icing for his right elbow swelling. Thanks Alvaro Called Enoc to make him aware, no answer, left detailed message. documented in this encounter Plan of Treatment Not on file documented as of this encounter Visit Diagnoses Not on filedocumented in this encounter Care Teams Ad Clerk Relationship Specialty Start Date End Date Alek Esparza MD [address] [place] [phone] PCP - General 09/03/10 04/05/23 documented as of this encounter
--- OUTSIDE RECORDS SUMMARY | 2024-08-29 14:15 | XMS_ITS | Encounter Summary ---
Author Organization [facility] Address [facility] [place] [address] Care Team Providers Care Assignment Desk Editor Name Role Phone Alek Esparza MD Primary Care Provider [phone] Reason for Visit * Reason Comments Follow-up Encounter Details Date Type Department Care Team (Late st Contact Info) Description 04/09/2015 8:25 AM EDT Follow-[place] [id number] Alvaro Cam MD [facility] [place] [address] Tophaceous gout; Vitamin D deficiency Discharge Disposition: Home Social [...] Sign Reading Time Taken Comments Blood Pressure 140/81 04/09/2015 8:33 AM EDT Pulse 81 04/09/2015 8:33 AM EDT Temperature 36.4 ??C (97.5 ??F) 04/09/2015 8:33 AM ED T Respiratory Rate - - Oxygen Saturation 99% 04/09/2015 8:33 AM EDT Inhaled Oxygen Concentration - - Weight 106.6 kg (235 lb) 04/09/2015 8:33 AM EDT Height 180.3 cm (5' 11) 04/09/2015 8:33 AM EDT Body Mass Index 32.78 04/09/2015 8:33 AM EDT documented in this encounter Patient Instructions * Patient Instructions* Alvaro Cam MD - 04/09/2015 8:46 AM EDT 1) Check labs today. 2) Return to follow up in 6 months. documented in this encounter Progress Notes * Alvaro Cam MD - 04/09/2015 8:36 AM EDT REASON FOR VISIT: Follow up for tophaceous gout and hyperuricemia. INTERVAL HISTORY: The pt was a 55-year-old male, who returned for a follow up of tophaceous gout and hyperuricemia. The pt noted that since his last visit on Jun 13, 2014, he had one episode of acute gouty arthritis in Sep 2014. He later underwent s/p resection of the right olecranon bursa, excision of right proximal ulnar enthesophyte, and repair of right distal triceps tendon. He tolerated the procedure well without any complications. He had no recurrent gouty arthritis since Sep 2014. He subsequently decided to discontinue both febuxostat and losartan in January 2014. His gout continued to be in remission since he discontinued both febuxostat and losartan. But he did complain of non-tender contractures in both hands in the past few months. PAST MEDICAL HISTORY: Hypertension Tophaceous gout Hyperuricemia [...] his partner. 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 FAMILY HISTORY: Mother - Unknown, alive at the age of 66. Father - Prostate cancer, alive at the age of 68. PHYSICAL EXAMINATION: Vitals 04/09/2015 SYSTOLIC 140 DIASTOLIC 81 PULSE 81 TEMPERATURE 97.5 Height (Fijian) 5' 11 Height (Metric) 180.3 cm Weight (Fijian) 235 lbs Weight (Metric) 106.595 kg BODY MASS INDEX 32.79 kg/m2 General - Alert, co-operative, no apparent distress, [...] or edema. Skin - Smooth and intact, + incision wound on right elbow well healed; no rash, tophus, telangiectasia on skin or at all nail margins or sclerodactyly. Psych - Normal affect. IMPRESSION: 1) Tophaceous gout and 2) marked hyperuricemia in a 55-year-old male. Because of his tophaceous gout and marked hyperuricemia, the pt is a candidate for life-long therapy with a uricosuric agent. The pt did not tolerate allopurinol due to rash, he tolerated febuxostat well without any side effects. The goal of serum uric acid level for this pt is 5.0. He did well while on febuxostat andlosartan, but he elected to discontinue both agents in January,. 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 He will undergo repeat laboratory studies today prior to instituting any plans. 3) Hypertension. The pt's blood pressure elevated since he discontinued losartan, which is also a uricosuric agent. He will undergo laboratory studies today prior to instituting any plans. 4) Bilateral Dupuytren's contractures. Since the pt's bilateral Dupuytren's contractures are asymptomatic at this point, he elected to be monitored for now. The pt was instructed to follow up with his orthopedic surgeon should his Dupuytren's contractures become symptomatic. RECOMMENDATIONS: 1) Check labs today. 2) Return to follow up in 6 months. Alvaro Cam MD, PhD documented in this encounter Plan of Treatment Not on file documented as of this encounter Procedures Procedure Name Priority Date/Time Associated Diagnosis Comments HEMOGRAM Routine 04/09/2015 8:59 AM EDT Tophaceous gout DIFFERENTIAL, AUTOMATED Routine 04/09/2015 8:59 AM EDT Tophaceous gout VITAMIN D, 25-HYDROXY Routine 04/09/2015 8:59 AM EDT Vitamin D deficiency SEDIMENTATION RATE Routine 04/09/2015 8: 59 AM EDT Tophaceous gout CBC (WITH DIFF) Routine 04/09/2015 8:59 AM EDT Tophaceous gout CRP, CARDIAC RISK (HS CRP) Routine 04/09/2015 8:59 AM EDT Tophaceous gout URIC ACID Routine 04/09/2015 8:59 AM EDT Tophaceous gout COMPREHENSIVE METABOLIC PANEL Routine 04/09/2015 8:59 AM EDT Tophaceous gout documented in this encounter Results * Differential, Automated (04/09/2015 8:59 AM EDT) Neutrophil % 45.9 % CERNER MILLENNIUM Neutrophil Absolute 3.48 1.50 - 6.30 x10(3)/mcL CERNER MILLENNIUM Lymph % 41.1 % CERNER MILLENNIUM Lymphocytes Abs 3.1 1.0 - 3.6 x10(3)/mcL CERNER MILLENNIUM Monocyte % 7.8 % CERNER MILLENNIUM Monocyte Abs 0.6 0.2 - 1.0 x10(3)/mcL CERNER MILLENNIUM Eos % 4.6 % CERNER MILLENNIUM Eosinophils Abs 0.4 0.0 - 0.5 x10(3)/mcL CERNER MILLENNIUM Basophil % 0.5 % CERNER MILLENNIUM Baso Absolute 0.0 0.0 - 0.2 x10(3)/mcL CERNER MILLENNIUM Immature Gran % 0.10 % CERN ER MILLENNIUM Comment: Immature granulocytes(IG's)percentage and absolute count will include metamyelocytes, myelocytes, and promyelocytes. Blood smears from CBCs yielding IG's will be scanned manually for concordance. If this scan disagrees with the automated IG or if promyelocytes are noted, a manual differential will be performed. Immature Gran Absolute 0.01 0.00 - 0.05 x10(3)/mcL CERNER MILLENNIUM Blood specimen (specimen) 04/09/2015 8:59 AM EDT 04/09/2015 9:08 AM EDT Narrative Resulting Agency Comment Spec In Lab Alvaro Cam MD HEMATOLOGY ORDERABLE S CERNER MILLENNIUM * (ABNORMAL) Hemogram (04/09/2015 8:59 AM EDT) White Blood Cell 7.6 4.0 - 10.0 x10(3)/mc L CERNER MILLENNIUM Red Blood Cell 4.48(L) 4.63 - 6.08 x10(6)/mc L CERNER MILLENNIUM Hemoglobin 15.2 13.7 - 17.5 gm/dL CERNER MILLENNIUM Hematocrit 45.0 40.0 - 51.0 % CERNER MILLENNIUM Mean Cell Volume 100.4(H) 79.0 - 92.0 fL CERNER MILLENNIUM Mean Cell Hemoglobin 33.9(H) 25.6 - 32.2 pg CERNER MILLENNIUM Mean Cell Hemoglobin Concentration 33.8 32.0 - 36.5 gm/dL CERNER MILLENNIUM Platelet 266 145 - 370 x10(3)/mc L CERNER MILLENNIUM RDW Standard Deviation 49.0(H) 35.0 - 46.0 fL CERNER MILLENNIUM RDW coefficient of variation 13.4 10.9 - 14.4 % CERNER MILLENNIUM Mean Platelet Volume 10.9 9.0 - 12.0 fL CERNER MILLENNIUM Blood specimen (specimen) 04/09/2015 8:59 AM EDT 04/09/2015 9:08 AM EDT Narrative Resulting Agency Comment Spec In Lab Alvaro Cam MD HEMATOLOGY ORDERABLE S Performing Organization Address [facility] Co de Phone Number GHAZALA ELAM * (ABNORMAL) Uric acid (04/09/2015 8:59 AM EDT) Uric Acid 9.2(H) 3.5 - 8.5 mg/dL GHAZALA WOOTENENNIUM Blood specimen (specimen) 04/09/2015 8:59 AM EDT 04/09/2015 9:08 AM EDT Narrative Resulting Agency Comment Spec In Lab Alvaro Cam MD CHEMISTRY ORDERABLES Performing Organization Address [facility] Co de Phone Number GHAZALA ELAM * High Sensitivity CRP (04/09/2015 8:59 AM EDT) C-Reactive Protein High Sensitivity 0.4 mg/L CERNER SUGARENNIUM Comment: Interpretations: 1) For accurate cardiac risk [...] prevention. ??Circulation 2003; [phone] Blood specimen (specimen) 04/09/2015 8:59 AM EDT 04/09/2015 9:08 AM EDT Narrative Resulting Agency Comment Spec In Lab Alvaro Cam MD CHEMISTRY ORDERABLES Performing Organization Address [facility] Co de Phone Number [facility] * (ABNORMAL) VIT D Total Evaluation (04/09/2015 8:59 AM EDT) Vitamin D Total 25 OH 28(L) 30 - 100 ng/mL [facility] Comment: Deficient <10 ng/mL Insufficient 10 to 29 ng/mL Sufficient 30 to 100 ng/mL Potential Intoxication >100 ng/mL According to the [place] National Osteoporosis Foundation, Vitamin D concentrations >30 ng/mL are sufficient to protect bone health. ??The National Kidney Foundation has similarly stated that patients with Vitamin D concentrations <30ng/mL should be considered to be insufficient or deficient. http://MedAvail/DHMCnatlkidneyfoundation http://MedAvail/DHMCVitD The IDS iSYS Vitamin D Immunoassay detects both 25-OH Vitamin D2 and 25-OH Vitamin D3, but only a total Vitamin D concentration is reported. Blood specimen (specimen) 04/09/2015 8:59 AM EDT 04/09/2015 9:08 AM EDT Narrative Resulting Agency Comment Spec In Lab Alvaro Cam MD CHEMISTRY ORDERABLES Performing Organization Address [facility] Co de Phone Number [facility] * Sedimentation rate (04/09/2015 8:59 AM EDT) Sedimentation Rate Automated 5 0 - 15 mm/hr [facility] Blood specimen (specimen) 04/09/2015 8:59 AM EDT 04/09/2015 9:08 AM EDT Narrative Resulting Agency Comment Spec In Lab Alvaro Cam MD HEMATOLOGY ORDERABLE S CERNER MILLENNIUM * Comprehensive metabolic panel (non-fasting) (04/09/2015 8:59 AM EDT) [facility] Glucose 151 65 - 199 mg/dL CERNER MILLENNIUM Comment:Diabetes: >=200 mg/d L plus symptoms Blood Urea Nitrogen 11 10 - 20 mg/dL CERNER MILLENNIUM Creatinine 1.15 0.80 - 1.50 mg/dL CERNER MILLENNIUM Comment: Please note that the pediatric reference intervals supplied above were not validated at [facility] [place]. Results from pediatric patients should be interpreted in conjunction to the patient's age, height and muscle mass. Sodium 138 135 - 145 mmol/L CERNER MILLENNIUM Potassium 4.6 3.5 - 5.0 mmol/L CERNER MILLENNIUM Comment: Please note: ??Patients with WBC >100,000 may have falsely elevated Potassium levels. ??For accurate Potassium quantification in these patients send serum separator tube (gold top) for subsequent determinations. ??Contact the Clinical Chemistry Laboratory if there are any questions. Chloride 101 98 - 107 mmol/L CERNER MILLENNIUM Carbon Dioxide 27 22 - 31 mmol/L CERNER MILLENNIUM Anion Gap 10 5 - 15 mmol/L CERNER MILLENNIUM Calcium 9.8 8.5 - 10.5 mg/dL CERNER MILLENNIUM Protein, Total 6.7 6.1 - 8.0 gm/dL CERNER MILLENNIUM Albumin 4.3 3.2 - 5.2 gm/dL CERNER MILLENNIUM Aspartate Aminotransferase 21 0 - 39 unit/L CERNER MILLENNIUM Alanine Aminotransferase 19 0 - 55 unit/L CERNER MILLENNIUM Alkaline Phosphatase 53 40 - 120 unit/L CERNER MILLENNIUM Bilirubin, Total 0.5 0.2 - 1.3 mg/dL CERNER MILLENNIUM Bilirubin, [...] the following links into your internet browser. 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
--- OUTSIDE RECORDS SUMMARY | 2024-08-29 14:15 | XMS_ITS | Encounter Summary ---
[place] [address] Care Team Providers Care Optical Laboratory Technician Name Role Phone Alek Esparza MD Primary Care Provider [phone] Reason for Visit * Reason Onset Date Comments Referral 03/20/2014 Encounter Details Date Type Department Care Team (Late st Contact Info) Description 03/20/2014 Telephone [place] [phone] Kash Morales Referral Social History Tobacco Use Types Packs/Day Years [...] encounter Miscellaneous Notes * Telephone Encounter - Kash Morales - 03/20/2014 3:18 PM EDT Ask patient to verify the following: Full name: Enoc Esteban : 1960 Phone number: [phone] (home) Mailing address: [address] [address] Intake: Liam from Rheumatology is calling to coordinate appointments for 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 ? resection Notes in e- Have you had any of the following studies for this issue? Yes. ?? X-Ray ?? MRI ?? CT Scan ?? LABS Have you seen an Orthopaedic surgeon for the this issue? No documented in this encounter Plan of Treatment Not on file documented as of this encounter Visit Diagnoses Not on filedocumented in this encounter Care Teams Optical Laboratory Technician Relationship Specialty Start Date End Date Alek Esparza MD [address] [place] [phone] PCP - General 09/03/10 04/05/23 documented as of this encounter
--- OUTSIDE RECORDS SUMMARY | 2024-08-29 14:15 | XMS_ITS | Encounter Summary ---
Author Organization [facility] Address [facility] [place] [address] Care Team Providers Care Departmental Buyer Name Role Phone Alek Esparza MD Primary Care Provider [phone] Reason for Visit * Reason Comments Medication Refill Encounter Details Date Type Department Care Team (Late st Contact Info) Description 04/18/2016 [place] [address] [facility] [address] [place] [address] Social History Tobacco Use Types Packs/Day Years [...] on filedocumented in this encounter Care Teams Departmental Buyer Relationship Specialty Start Date End Date Alek Esparza MD [address] [place] [phone] PCP - General 09/03/10 04/05/23 documented as of this encounter
--- OUTSIDE RECORDS SUMMARY | 2024-08-29 14:15 | XMS_ITS | Encounter Summary ---
Author Organization [facility] Address [facility] [place] [address] Care Team Providers Care On Site Soil Evaluator Name Role Phone Alek Esparza MD Primary Care Provider [phone] Encounter Details Date Type Department Care Team (Latest Contact Info) Description 06/13/2014 2:11 PM EDT - 06/13/2014 11:59 PM EDT Hospital Encounter XRay at [address] [place] [address] Pain in right elbow Social History Tobacco [...] EVERY DAY 90 tablet 3 02/15/2014 04/20/2015 hydroCODone-acetamino phen (VICODIN) 5-500 mg per tablet Take 1-2 tablets by mouth every 6 hours as needed for Pain. 36 tablet 1 02/08/2013 10/16/2014 documented as of this encounter Plan of Treatment Not on file documented as of this encounter Procedures Procedure Name Priority Date/Time Associated Diagnosis Comments XR ELBOW 3 VIEW COMPLETE Routine 06/13/2014 2:18 PM EDT Pain in right elbow documented [...] arm documented in this encounter Care Teams On Site Soil Evaluator Relationship Specialty Start Date End Date Alek Esparza MD [address] [place] [phone] PCP - General 11/23/10 6/25/23 documented as of this encounter
--- OUTSIDE RECORDS SUMMARY | 2024-08-29 14:15 | XMS_ITS | Encounter Summary ---
Author Organization [facility] [place] [address] Care Team Providers Care Governor Assembler Name Role Phone Alek Esparza MD Primary Care Provider [phone] Reason for Visit * Reason Onset Date Comments Other 01/02/2014 elbow Encounter Details Date Type Department Care Team (Late st Contact Info) Description 01/02/2014 Telephone [place] [phone] Shonna Cristina RN Other (elbow) Social History Tobacco Use Types Packs/Day Years [...] Telephone Encounter - Shonna Cristina RN - 01/02/2014 9:[address] Esparza called because he saw Enoc's elbow and felt it looked pretty bad. Dr. Esparza wanted him to have xrays, but Enoc declined saying he would have Dr. Cam evaluate at his 01/[address] Esparza wants to make sure Dr. Cam is going to follow up on this. Told him message would be given to Dr. Cam. documented in this encounter Plan of Treatment Not on file documented as of this encounter Visit Diagnoses Not on filedocumented in this encounter Care Teams Governor Assembler Relationship Specialty Start Date End Date Alek Esparza MD [address] [place] [phone] PCP - General 09/03/10 04/05/23 documented as of this encounter
--- OUTSIDE RECORDS SUMMARY | 2024-08-29 14:15 | XMS_ITS | Encounter Summary ---
Author Organization [facility] [place] [address] Care Team Providers Care User Experience Designer Name Role Phone Alek Esparza MD Primary Care Provider [phone] Reason for Visit * Reason Onset Date Comments Disability Paperwork 10/18/2014 Encounter Details Date Type Department Care Team (Late st Contact Info) Description 10/18/2014 [place] [phone] Kelly Rachel Disability Paperwork Social History Tobacco Use Types Packs/Day Years [...] encounter Miscellaneous Notes * Telephone Encounter - Kelly Rachel - 10/18/2014 9:15 AM EST After a discussion with the patient about his short term disability paperwork that he handed to at the [facility] I have called Tonya Limon at [phone] asking her to fax the paperwork directly to us at [phone]. I left this on her VM as she was on the other line. documented in this encounter Plan of Treatment Not on file documented as of this encounter Visit Diagnoses Not on filedocumented in this encounter Care Teams User Experience Designer Relationship Specialty Start Date End Date Alek Esparza MD [address] [place] [phone] PCP - General 09/03/10 04/05/23 documented as of this encounter
--- OUTSIDE RECORDS SUMMARY | 2024-08-29 14:15 | XMS_ITS | Encounter Summary ---
Author Organization [facility] [place] [address] Care Team Providers Care Molasses Feed Mixer Name Role Phone Luisa Esparza MD Primary Care Provider [phone] Reason for Referral * Diagnostic Test (Routine) - Closed Specialty Diagnoses / Procedures Referred By Contac t Referred To Contact Radiology Diagnoses Radiculopathy of cervical region Procedures MRI Cervical Spine wo Contrast (Generic) Luisa Calderon PA [facility] [place] [address] [place] [address] Referral ID Status Reason Start Date Expiration Date V isits Requested Visits Authorized [id number] Closed Specialty Service Requested 04/04/2017 06/02/2017 1 1 * Physical Therapy (Routine) - Specialty Diagnoses / Procedures Referred By Contac t Referred To Contact Physical Therapy Diagnoses Radiculopathy of cervical region Luisa Calderon PA [facility] [place] [address] Referral ID Status Reason Start Date Expiration Date V isits Requested Visits Authorized Evaluate and Treat 03/03/2017 08/30/2017 12 12 Reason for Visit * Reason Comments Neck Pain Radiating shock like pain down left side... * Consultation (Routine) - Closed Specialty Diagnoses / Procedures Referred By Debra t Referred To Contact Neurosurgery Diagnoses re-evaluate recurrent neck pain with left radiculopathy after lifting heavy log incorrectly to place on wood splitter; previous surgery with you 2008 Luisa Esparza MD [address] [place] [phone] [facility] [address] [place] [phone] Referral ID Status Reason Start Date Expiration Date V isits Requested Visits Authorized [id number] Closed Consult, Test & Treat Connection Center 02/11/2017 02/11/2018 1 1 Encounter Details Date Type Department Care Team (Latest Contact Info) Description 03/03/2017 10:00 AM EDT Office [place] [address] Luisa Calderon PA [facility] [place] [address] Radiculopathy of cervical region Social History Tobacco Use Types Packs/Day [...] Sign Reading Time Taken Comments Blood Pressure 122/72 03/03/2017 9:34 AM EDT Pulse 72 03/03/2017 9:34 AM EDT Temperature - - Respiratory Rate - - Oxygen Saturation - - Inhaled Oxygen Concentration - - Weight 104.8 kg (231 lb) 03/03/2017 9:34 AM EDT Height 180.3 cm (5' 11) 03/03/2017 9:34 AM EDT Body Mass Index 32.22 03/03/2017 9:34 AM EDT documented in this encounter Progress Notes * Luisa Calderon PA - 03/03/2017 10:00 AM EDT Name: Enoc Esteban : 1960 PCP: Luisa Esparza MD REF: Luisa Esparza Date of Service: 03/03/2017 History & Physical CHIEF COMPLAINT Chief Complaint Patient presents with ??? Neck Pain Radiating shock like pain down left side... HISTORY OF PRESENT ILLNESS Enoc Esteban is a 57 year old male who underwent C5-6, C6-[address] Perdue in 2008 for left upper extremity cervical radiculopathy. He presents to the Neurosurgery clinic today with complains of recurrent left upper extremity shooting pain and paresthesias similar to the pain he had prior to his neck surgery. This pain started about 2 weeks ago after doing some heavy lifting. He notes that he has chronic paresthesias though they seem worse now. He reports some weakness in the left hand. He denies right sided symptoms or symptoms in the lower extremities. He has had no changes to his gait and balance. He is on gabapentin and takes hydrocodone prn. He has not undergone physical therapy.He has not yet had any recent imaging since he states his insurance denied a request for a MRI. PAST MEDICAL HISTORY Patient Active Problem List Diagnosis Code ??? HTN (hypertension) I10 ??? Tophaceous gout M1A.9XX1 ??? Hyperuricemia E79.0 ??? Mild vitamin D deficiency E55.9 ??? Asthma J45.909 ??? TYRON (obstructive sleep apnea) G47.33 ??? Fracture of left small finger, proximal, closed S62.619A ??? Pain in right elbow M25.521 ??? History of elbow surgery, right Dr. Howard, 10/16/2014 exc prox ulna entesophyte Z98.890 ??? Radiculopathy of cervical region M54.12 History reviewed. No pertinent past medical history. Past Surgical History: Procedure Laterality Date ??? PRO CLOSED TREAT TOE FX 02/08/2013 CLOSED TREATMENT FX PHALANX OR PHALANGES performed by Rohan Duarte MD at [facility] ??? PRO REMOVAL OF ELBOW BURSA Right 10/16/2014 EXCISION OF OLECRANON BURSA performed by Anupama Howard MD at [facility] ALLERGIES No Known Allergies MEDICATIONS Current Outpatient Prescriptions: ??? gabapentin (NEURONTIN) 300 mg Capsule, Take 300 mg by mouth 3 times daily., Disp: , Rfl: ??? febuxostat (ULORIC) 40 mg Tablet, Take 2 tablets by mouth daily., Disp: 60 tablet, Rfl: 5 ??? losartan (COZAAR) 50 mg Tablet, Take 1 tablet by mouth daily., Disp: 30 tablet, Rfl: 5 ??? ergocalciferol (ERGOCALCIFEROL) 50,000 unit Capsule, Take 1 capsule by mouth once a week., Disp: 6 capsule, Rfl: 2 ??? HYDROcodone-acetaminophen (NORCO) 10-325 mg Tablet, as needed., Disp: , Rfl: ??? zolpidem (AMBIEN) 10 mg tablet, Take 10 mg by mouth nightly as needed., Disp: , Rfl: ??? albuterol-ipratropium (COMBIVENT) 18-103 mcg/Actuation inhaler, , Disp: , Rfl: ??? methylPREDNISolone (MEDROL DOSPACK) 4 mg Tablets, Dose Pack, Use as directed on product package., Disp: 21 tablet, Rfl: 0 ??? predniSONE (DELTASONE) 5 mg Tablet, Take 3 tablets by mouth daily. (Patient not taking: Reported on 03/31/2016), Disp: 60 tablet, Rfl: 3 SOCIAL HISTORY Social History Social History ??? Marital status: Single Spouse name: N/A ??? Number of children: N/A ??? Years of education: N/A Occupational History ??? Not on file. Social History Main Topics ??? Smoking status: Never Smoker ??? Smokeless tobacco: Never Used ??? Alcohol use Yes Comment: 4 drinks daily ??? Drug use: Yes Special: Marijuana Comment: non medical.. uses for sleep / pain ??? Sexual activity: Not on file Other Topics Concern ??? Not on file Social History Narrative FAMILY HISTORY Family History Problem Relation Age of Onset ??? Cancer Father REVIEW OF SYSTEMS 10 point ROS reviewed. Pertinent findings per HPI. PHYSICAL EXAM BP 122/72 Pulse 72 Ht 180.3 cm (5' 11) Wt (!) 104.8 kg (231 lb) BMI 32.22 kg/m2 Enoc Esteban is a 57 y.o. male in no cardiorespiratory distress. Awake, alert, and oriented. Answers questions, follows commands, and converses appropriately. Speech clear and fluid. Good phonation.Vision is grossly intact. Face symmetric. Hearing grossly intact. Normal muscle bulk and tone. Strength 5/5 in senior manufacturing supervisor, intrinsics, wrist extension, wrist flexion, triceps, biceps, and deltoids bilaterally. Strength 5/5 in hip flexion, knee extension, DF, and PF bilaterally. Sensation grossly intact to light touch throughout all four extremities. Gait, coordination, and balance normal. ASSESSMENT & PLAN Enoc Esteban is a 57 y.o. male with a prior history of C5-[address] Perdue for left upper extremity cervical radiculopathy. He presents with a two week history of recurrent left upper extremity shooting pain similar to what he experienced prior to his cervical decompression. His paresthesias are worse and he complains of subjective left hand weakness. We obtained an x-ray today to rule out hardware complication or other abnormality. This did not show any obvious reason for his new symptoms. I believe he will need a new MRI to evaluate for new nerve root compression. In the meantime I gave him a script for a medrol dosepak and physical therapy. Follow up after MRI. Luisa Calderon PA-C documented in this encounter Miscellaneous Notes * Addendum Note - Luisa Calderon PA - 03/04/2017 4:57 PM EDTAddended by: LUISA CALDERON on: 03/04/2017 04:57 PM Modules accepted: Orders documented in this encounter Plan of Treatment Scheduled Referrals Name Type Priority Associated Diagnoses Orde r Schedule Referral to Physical Therapy Outpatient Referral Routine Radiculopathy of cervical region Ordered: 03/03/2017 documented as of this encounter Results * MRI Cervical Spine wo Contrast (Generic) (04/08/2017 3:17 PM EDT) Anatomical Region Laterality Modality C-spine Magnetic Resonan ce Impressions 04/08/2017 6:38 PM EDT Postsurgical and degenerative changes of the cervical spine. Foraminal stenosis is most pronounced on the left at C4-C5. Narrative 04/08/2017 6:38 PM EDT EXAMINATION: MRI CERVICAL SPINE WO CONTRAST (GENERIC) CLINICAL HISTORY: h/o ACDF, new LUE radiculopathy pain/paresthesias TECHNIQUE: MR of the cervical spine performed without the use of intravenous contrast. COMPARISON: Plain films 03/03/2017 FINDINGS: There has been prior anterior C5-C7 fusion. Alignment of cervical spine is normal. There is no focal, aggressive appearing marrow lesion. Cervical cord signal is normal. Findings at specific levels: C2-C3: No central canal or foraminal stenosis. C3-C4: Disc bulging produces mild central canal narrowing. Uncovertebral and facet hypertrophic changes produce mild right and moderate left foraminal narrowing. C4-C5: Disc bulge produces mild central canal narrowing. Disc bulge, uncovertebral hypertrophy, and facet arthropathy combine to produce severe left and moderate right foraminal narrowing. C5-C6: This level is fused. Uncovertebral and facet degenerative change contributes to moderate to severe bilateral foraminal narrowing. C6-7: This level is fused. There is no right foraminal narrowing. There is mild left foraminal narrowing primarily due to uncovertebral osteophyte. C7-T1: There are facet degenerative changes without central canal or foraminal stenosis. Procedure Note Adama Shankar MD - 04/08/2017 EXAMINATION: MRI CERVICAL SPINE WO CONTRAST (GENERIC) CLINICAL HISTORY: h/o ACDF, new LUE radiculopathy pain/paresthesias TECHNIQUE: MR of the cervical spine performed without the use ofintravenous contrast. COMPARISON: Plain films 03/03/2017 FINDINGS: There has been prior anterior C5-C7 fusion. Alignment ofcervical spine is normal. There is no focal, aggressive appearing marrow lesion.Cervical cord signal is normal. Findings at specific levels: C2-C3: No central canal or foraminal stenosis. C3-C4: Disc bulging produces mild central canal narrowing. Uncovertebraland facet hypertrophic changes produce mild right and moderate leftforaminal narrowing. C4-C5: Disc bulge produces mild central canal narrowing. Disc bulge, uncovertebral hypertrophy, and facet arthropathy combine to produce severeleft and moderate right foraminal narrowing. C5-C6: This level is fused. Uncovertebral and facet degenerative change contributes to moderate to severe bilateral foraminal narrowing. C6-7: This level is fused. There is no right foraminal narrowing. There ismild left foraminal narrowing primarily due to uncovertebral osteophyte. C7-T1: There are facet degenerative changes without central canal orforaminal stenosis. IMPRESSION Postsurgical and degenerative changes of the cervical spine. Foraminalstenosis is most pronounced on the left at C4-C5. Joao Perdue MD [facility] [place] MRI ORDERABLES * XR Cervical Spine 2 Or 3 Views (03/03/2017 10:55 AM EDT) Anatomical Region Laterality Modality C-spine N/A Digital Radiogra phy Impressions 03/03/2017 3:37 PM EDT C5-C7 ACDF in stable position alignment. Noted is approximately 2 mm of anterolisthesis of C4 on C5 which appears slightly more prominent than on prior imaging. Narrative 03/03/2017 3:37 PM EDT EXAMINATION: XR CERVICAL SPINE 2 OR 3 VIEWS CLINICAL HISTORY: s/p ACDF, new LUE pain/paresthesias TECHNIQUE: ? COMPARISON: 12/12/2009 06/06/2009 FINDINGS: Patient status post C5-C7 ACDF. Position and alignment of the anterior plate and screw fixation is unchanged. No peripheral lucency about the hardware to suggest loosening or infection. There is minimal 2 mm of anterolisthesis of C4 on C5. This is more prominent than on prior imaging. Degenerative changes are noted at C4-C5 with anterior and small posterior oriented osteophytes. Posterior facet arthropathy is also noted. Lung apices are clear. Procedure Note Khadijah Arnold MD - 03/03/2017 EXAMINATION: XR CERVICAL SPINE 2 OR 3 VIEWS CLINICAL HISTORY: s/p ACDF, new LUE pain/paresthesias TECHNIQUE: COMPARISON: 12/12/2009 06/06/2009 FINDINGS: Patient status post C5-C7 ACDF. Position and alignment of the anteriorplate and screw fixation is unchanged. No peripheral lucency about the hardware tosuggest loosening or infection. There is minimal 2 mm of anterolisthesis of C4 onC5. This is more prominent than on prior imaging. Degenerative changes arenoted at C4-C5 with anterior and small posterior oriented osteophytes. Posteriorfacet arthropathy is also noted. Lung apices are clear. IMPRESSION C5-C7 ACDF in stable position alignment. Noted is approximately 2 mm of anterolisthesis of C4 on C5 which appears slightly more prominent than onprior imaging. Joao Perdue MD IMG DX ORDERABLES documented in this encounter Visit Diagnoses Diagnosis Radiculopathy of cervical region Brachial neuritis or radiculitis nos Radiculopathy of cervical region Brachial neuritis or radiculitis nos Radiculopathy of cervical region Brachial neuritis or radiculitis nos documented in this encounter Care Teams Molasses Feed Mixer Relationship Specialty Start Date End Date Luisa Esparza MD [address] [place] [phone] PCP - General 09/03/10 04/05/23 documented as of this encounter
--- OUTSIDE RECORDS SUMMARY | 2024-08-29 14:15 | XMS_ITS | Encounter Summary ---
Author Organization [facility] Address [facility] [place] [address] Care Team Providers Care Retail Chain Store Area Supervisor Name Role Phone Astrid Girer MD Primary Care Provider Reason for Visit * Reason Comments Medication Refill Encounter Details Date Type Department Care Team (Late st Contact Info) Description 05/18/2014 [place] [address] Alvaro Cam MD [facility] [place] [address] Social History Tobacco Use Types Packs/Day Years [...] on filedocumented in this encounter Care Teams Retail Chain Store Area Supervisor Relationship Specialty Start Date End Date Astrid Grier MD [address] [place] [address] PCP - General Family Medicine 04/06/23 documented as of this encounter
--- OUTSIDE RECORDS SUMMARY | 2024-08-29 14:15 | XMS_ITS | Encounter Summary ---
Author Organization [facility] Address [facility] [place] [address] Care Team Providers Care Trade Manager Name Role Phone Alek Esparza MD Primary Care Provider [phone] Reason for Visit * Reason Comments Medication Refill Encounter Details Date Type Department Care Team (Late st Contact Info) Description 10/17/2016 [place] [address] Alvaro Cam MD [facility] [address] [place] [address] Social History Tobacco Use Types Packs/Day Years [...] on filedocumented in this encounter Care Teams Trade Manager Relationship Specialty Start Date End Date Alek Esparza MD [address] [place] [phone] PCP - General 09/03/10 04/05/23 documented as of this encounter
--- OUTSIDE RECORDS SUMMARY | 2024-08-29 14:15 | XMS_ITS | Encounter Summary ---
Author Organization [facility] Address [facility] [place] [address] Care Team Providers Care Regional Sales Coordinator Name Role Phone Alek Esparza MD Primary Care Provider Reason for Visit * Reason Comments Results had MRI today.... Encounter Details Date Type Department Care Team (Latest Contact Info) Description 04/08/2017 3:30 PM EDT Office Visit [place] [address] Alek Arellano PA [facility] [place] [address] Radiculopathy of cervical region Social History Tobacco [...] Sign Reading Time Taken Comments Blood Pressure 116/73 04/08/2017 3:37 PM EDT Pulse 79 04/08/2017 3:37 PM EDT Temperature - - Respiratory Rate - - Oxygen Saturation - - Inhaled Oxygen Concentration - - Weight 106.6 kg (235 lb) 04/08/2017 3:37 PM EDT Height 180.3 cm (5' 11) 04/08/2017 3:37 PM EDT Body Mass Index 32.78 04/08/2017 3:37 PM EDT documented in this encounter Progress Notes * Alek Arellano PA - 04/08/2017 3:30 PM EDT Name: Enoc Esteban : 1960 PCP: Alek Esparza MD REF: Alek Esparza Date of Service: 04/08/2017 Chief Complaint Patient presents with ??? Results had MRI today.... Enoc Esteban presents in follow up after having undergone MRI of his cervical spine for left arm pain, numbness, and subjective weakness. He has been managed in the meantime with a medrol dosepak and gabapentin which have been unhelpful. The steroid has run its course and he discontinued the gabapentin. He went for PT but stopped after two sessions due to costs. He reports his symptoms to be about the same. His MRI reveals multilevel degenerative changes with foraminal stenosis most pronouncedat C4-5 on the left. We discussed option moving forward including other methods of conservative treatments, but also more invasive measures such as spinal injection and possible surgical decompression. He reports that he is not feeling well currently and a little under the weather. I believe this affected our ability to have a substantive discussion of his options today. I plan to call him back when he is feeling better so that we can re-discuss the findings and treatment options. Alek Arellano PA-C documented in this encounter Plan of Treatment Not on file documented as of this encounter Visit Diagnoses Diagnosis Radiculopathy of cervical region Brachial neuritis or radiculitis nos documented in this encounter Care Teams Regional Sales Coordinator Relationship Specialty Start Date End Date Alek Esparza MD [address] [place] [phone] PCP - General 09/03/10 04/05/23 documented as of this encounter
--- OUTSIDE RECORDS SUMMARY | 2024-08-29 14:15 | XMS_ITS | Encounter Summary ---
Author Organization [facility] Address [facility] [place] [address] Care Team Providers Care Product Scientist Name Role Phone Alek Esparza MD Primary Care Provider [phone] Reason for Visit * Reason Onset Date Comments Medication Refill 09/24/2015 Encounter Details Date Type Department Care Team (Late st Contact Info) Description 09/24/2015 [place] [address] Alvaro Cam MD [facility] [place] [address] Social History Tobacco Use Types Packs/Day Years [...] on filedocumented in this encounter Care Teams Product Scientist Relationship Specialty Start Date End Date Alek Esparza MD [address] [place] [phone] PCP - General 09/03/10 04/05/23 documented as of this encounter
--- OUTSIDE RECORDS SUMMARY | 2024-08-29 14:15 | XMS_ITS | Encounter Summary ---
Author Organization [facility] Address [facility] [place] [address] Care Team Providers Care Ecological Economist Name Role Phone Alek Esparza MD Primary Care Provider [phone] Encounter Details Date Type Department Care Team (Late st Contact Info) Description 10/16/2014 1:39 PM EST Anesthesia Event [place] [phone] Deniz Bermudez MD [facility] [place] [place] [address] Donal Abdalla MD [facility] [place] [address] Anesthesia Record Procedure Summary Procedure Name Responsible Anesthesiologist Anesthesia Start Time Anesthesia Stop Time EXCISION OF OLECRANON BURSA (WRVU 3.78) (Right: Elbow) Deniz Bermudez MD 10/16/14 1339 10/16/14 1525 Events Date Time Event Comment 10/16/2014 1332 1339 AN Verify 1339 Start 1339 An Start Data 1353 An Induction 1353 An Intubation 1356 Anesthesia Ready 1359 Quick Note Pt required 800 mg propofol to stop moving at induction, then required high MAC (1.2 Dontae plus propofol infusion at 100mcg/kg/min) 1416 Break/Relief In IRINEO L TICKN OR, HEALTH PLAN SPECIALIST 1432 Break/Relief Out 1516 Extubation/LMA Out 1520 an stop data 1525 Stop Meds Name Total fentaNYL 100 mcg Propofol 800 mg Ondansetron 4 mg Dexamethasone 4 mg Propofol INF 511.07 mg Succinylcholine 100 mg HYDROmorphone 1.2 mg ceFAZolin (ANCEF) 2g in dextrose 5% 50 m L 2 g lactated ringers infusion 1,000 mL 600 m L * Agents Name O2 Air N2O Sevoflurane (et) Desflurane (et) * Blood No blood administrations on [...] (RETIRED) Peripheral IV Line - Single Lumen 10/16/14; 1213; metacarpal vein left (top of hand); [id number] catheter system; 20 gauge; intradermal injection, tolerated well; 10/16/14; 1616 10/16/14 1213 by Landon Dewey 10/16/14 1616 by Audra Amato RN ETT Mask Ventilation: Ea sy (1); ETT Type: Cuffed; ETT Size: 7.5 mm; Mac Blade: 4; Notes: Asleep, Pre-O2, RSI, Cricoid Pressure, Stylette; Attempts: 2; Laryngoscopy Grade: 3; ETT Placement Verified By: Auscultation, Capnometry; Secured at Teeth: 22 cm; Inserted by: Everette; Removal Date: 10/16/14; Removal Time: 151510/16/14 1353 by Delma Gaviria MD 10/16/14 151 by Delma Gaviria MD documented in this encounter Social History Tobacco [...] OR Notes * Anesthesia Postprocedure Evaluation - Delma Gaviria - 10/16/2014 3:25 PM EST Patient: Enoc Esteban Procedure(s) Performed: Procedure(s): EXCISION OF OLECRANON BURSA MODIFIER SIDE LYING Actual Anesthetic: general Patient location: PACU Post-op pain: Adequate analgesia Post-op nausea: no nausea or vomiting Last Vitals: Filed Vitals: 10/16/14 1159 BP: 133/82 Pulse: 73 Temp: 37.4 ??C (99.3 ??F) Resp: 18 Post-op cardiovascular and respiratory status: is stable Level of consciousness: awake, alert and oriented Complications: no apparent complications and tolerated the procedure well Fluid Status: normal * Anesthesia Postprocedure Evaluation - Deniz Bermudez MD - 10/16/2014 3:25 PM EST Patient: Enoc Esteban Procedure(s) Performed: Procedure(s): EXCISION OF OLECRANON BURSA MODIFIER SIDE LYING Actual Anesthetic: general Patient location: PACU Post-op pain: Adequate analgesia Post-op nausea: no nausea or vomiting Last Vitals: Filed Vitals: 10/16/14 1159 BP: 133/82 Pulse: 73 Temp: 37.4 ??C (99.3 ??F) Resp: 18 Post-op cardiovascular and respiratory status: is stable Level of consciousness: awake, alert and oriented Complications: no apparent complications and tolerated the procedure well Fluid Status: normal * Anesthesia Preprocedure Evaluation - Deniz Bermudez MD - 10/15/2014 1:44 PM EST Pre-Anesthesia Evaluation for: Enoc Esteban a 54 y.o. male. Procedure(s): EXCISION OF OLECRANON BURSA MODIFIER SIDE LYING Patient Active Problem List Diagnosis ??? Pain in right elbow ??? Fracture of left small finger, proximal, closed ??? HTN (hypertension) ??? Tophaceous gout ??? Hyperuricemia ??? Mild vitamin D deficiency ??? Asthma ??? TYRON (obstructive sleep apnea) No past medical history on file. Past Surgical History Procedure Laterality Date ??? Closed treat toe fx 02/08/2013 CLOSED TREATMENT FX PHALANX OR PHALANGES performed by Rohan Duarte MD at [facility] History Substance Use Topics ??? Smoking status: Never Smoker ??? Smokeless tobacco: Never Used ??? Alcohol Use: 9.0 oz/week 15 Cans of beer per week History Drug Use ??? Yes ??? Special: Marijuana No Known Allergies Medications: MAR and/or home medications have been reviewed. Physical Exam: There were no vitals filed for this visit. There is no weight on file to calculate BMI. Airway Assessment: Mallampati: II TM distance: >3 FB Cardiovascular Assessment: cardiovascular exam normal Pulmonary Assessment: Dental Assessment: Misc Assessment: Other exam findings: C456 fusion, good ROM Anesthesia Plan: ASA 3 general, with a(n) intravenous induction 54M with obesity, HTN, gout, TYRON, asthma, pain in right elbow, plan for excison of olecranon bursa. C4-6 fusion, good extension/flexion GA/LMA Region - Other Informed Consent: Anesthetic plan and risks discussed with patient. [place] [facility] [place]: documented in this encounter Plan of Treatment Not on file documented as of this encounter Visit Diagnoses Not on filedocumented in this encounter Administered Medications Inactive Administered Medications - up to 3 most recent administrations Medication Order MAR Action Action Date Dose Rate Site ceFAZolin (ANCEF) 2g in dextrose 5% 50 mL 2 g, Intravenous, EVERY 3 HOURS, 1 dose, First dose on Thu10/16/14 at 1230, Redose after 3 hours., Intra-Operative (Intra-Procedure), Indication for (Active or Suspected): Prophylaxis Given 10/16/2014 1:39 PM EST 2 g dexamethasone (DECADRON) injection PRN, Starting on Thu10/16/14 at 1411, Until Thu10/16/14 at 1525, Anesthesia Intra-op, Routine Given 10/16/2014 2:11 PM EST 4 mg fentaNYL 50mcg/mL injection PRN, Starting on Thu10/16/14 at 1354, Until Thu10/16/14 at 1525, Pain, Anesthesia Intra-op, Routine Given 10/16/2014 1:54 PM EST 100 mcg HYDROmorphone (DILAUDID) injection PRN, Starting on Thu10/16/14 at 1405, Until Thu10/16/14 at 1525, Pain, Anesthesia Intra-op, Routine Given 10/16/2014 2:59 PM EST 0.2 mg Given 10/16/2014 2:46 PM EST 0.2 mg Given 10/16/2014 2:37 PM EST 0.2 mg lactated ringers infusion 1,000 mL 1,000 mL, at 100 mL/hr, Intravenous, CONTINUOUS, Starting on Thu10/16/14 at 1230, Until Thu10/16/14 at 1927, Day of Surgery (Day of Procedure) New Bag 10/16/2014 1:39 PM EST New Bag 10/16/2014 12:14 PM EST 1,000 mLs 100 mL/hr ondansetron (ZOFRAN) injection PRN, Starting on Thu10/16/14 at 1439, Until Thu10/16/14 at 1525, Nausea, Anesthesia Intra-op, Routine Given 10/16/2014 2:39 PM EST 4 mg propofol (DIPRIVAN) 10 mg/mL bolus injection (Anesthesia) PRN, Starting on Thu10/16/14 at 1353, Until Thu10/16/14 at 1525, Anesthesia Intra-op Given 10/16/2014 1:56 PM EST 200 mg Given 10/16/2014 1:55 PM EST 200 mg Given 10/16/2014 1:54 PM EST 200 mg propofol (DIPRIVAN) infusion CONTINUOUS PRN, Starting on Thu10/16/14 at 1353, Until Thu10/16/14 at 1525, Anesthesia Intra-op, Routine New Bag 10/16/2014 1:53 PM EST 100 mcg/kg/min 62.6 mL/hr succinylcholine (ANECTINE) injection PRN, Starting on Thu10/16/14 at 1354, Until Thu10/16/14 at 1525, Anesthesia Intra-op, Routine Given 10/16/2014 1:54 PM EST 100 mg documented in this encounter Care Teams Ecological Economist Relationship Specialty Start Date End Date Alek Esparza MD [address] [place] [phone] PCP - General 09/03/10 04/05/23 documented as of this encounter
--- OUTSIDE RECORDS SUMMARY | 2024-08-29 14:15 | XMS_ITS | Encounter Summary ---
Author Organization [facility] Address [facility] [place] [address] Care Team Providers Care Customer Contact Sales Associate Name Role Phone Alek Esparza MD Primary Care Provider [phone] Encounter Details Date Type Department Care Team ([facility] Contact Info) Description 10/10/2014 Telephone [place] [address] Anupama Howard MD [facility] [place] [address] Social History Tobacco Use Types Packs/Day Years [...] Miscellaneous Notes * Telephone Encounter - Marti Barroso - 10/10/2014 11:07 AM EST I have left a message for the patient regarding his upcoming surgery. He is currently on for October 16, [address] Howard but i do have an opening for October 13, 2014. Awaiting for the patient to call back for further discussion. documented in this encounter Plan of Treatment Not on file documented as of this encounter Visit Diagnoses Not on filedocumented in this encounter Care Teams Customer Contact Sales Associate Relationship Specialty Start Date End Date Alek Esparza MD [address] [place] [phone] PCP - General 09/03/10 04/05/23 documented as of this encounter
--- OUTSIDE RECORDS SUMMARY | 2024-08-29 14:15 | XMS_ITS | Encounter Summary ---
Author Organization [facility] Address [facility] [place] [address] Care Team Providers Care Induction Heating Equipment Setter Name Role Phone Alek Esparza MD Primary Care Provider [phone] Reason for Visit * Reason Onset Date Comments Medication Refill 10/20/2016 Encounter Details Date Type Department Care Team (Late st Contact Info) Description 10/20/2016 Refill [place] [address] Alvaro Cam MD [facility] [place] [address] Social History Tobacco Use Types Packs/Day Years [...] on filedocumented in this encounter Care Teams Induction Heating Equipment Setter Relationship Specialty Start Date End Date Alek Esparza MD [address] [place] [phone] PCP - General 09/03/10 04/05/23 documented as of this encounter
--- OUTSIDE RECORDS SUMMARY | 2024-08-29 14:15 | XMS_ITS | Encounter Summary ---
Author Organization [facility] Address [facility] [place] [address] Care Team Providers Care Railroad Car Painter Name Role Phone Alek Esparza MD Primary Care Provider [phone] Encounter Details Date Type Department Care Team (Latest Contact Info) Description 03/03/2017 10:41 AM EDT - 03/03/2017 11:59 PM EDT Hospital Encounter XRay at [address] [place] [address] Joao Perdue MD [facility] [place] [address] Radiculopathy of cervical region Discharge Disposition: Home Social History Tobacco Use [...] Sig Dispensed Refills Start Date End Date losartan (COZAAR) 50 mg Tablet Take 1 tablet by mouth daily. 30 tablet 5 10/20/2016 zolpidem (AMBIEN) 10 mg Tablet Take 10 mg by mouth nightly as needed. gabapentin (NEURONTIN) 300 mg Capsule Take 300 mg by mouth 3 times daily. Reported on 04/08/2017 07/20/2017 febuxostat (ULORIC) 40 mg Tablet Take 2 tablets by mouth daily. 60 tablet 5 10/20/2016 07/20/2017 ergocalciferol (ERGOCALCIFEROL) 50,000 unit Capsule Take 1 capsule by mouth once a week. 6 capsule 2 09/25/2015 08/03/2017 HYDROcodone-acetaminoph en (NORCO) 10-325 mg Tablet Take 2 tablets by mouth every 8 hours as needed. 03/29/2015 04/13/2020 documented as of this encounter Plan of Treatment Not on file documented as of this encounter Procedures Procedure Name Priority Date/Time Associated Diagnosis Comments XR CERVICAL SPINE 2 OR 3 VIEWS Routine 03/03/2017 10:55 AM EDT Radiculopathy of cervical region documented in this encounter Results * XR Cervical Spine 2 Or 3 [...] nos documented in this encounter Care Teams Railroad Car Painter Relationship Specialty Start Date End Date Alek Esparza MD [address] [place] [phone] PCP - General 09/03/10 04/05/23 documented as of this encounter
--- OUTSIDE RECORDS SUMMARY | 2024-08-29 14:15 | XMS_ITS | Encounter Summary ---
Author Organization [facility] Address [facility] [place] [address] Care Team Providers Care Cardiopulmonary Supervisor Name Role Phone Alek Esparza MD Primary Care Provider [phone] Encounter Details Date Type Department Care Team (Late st Contact Info) Description 03/04/2017 Orders [place] [address] Alek Arellano, PA [facility] [address] Social History Tobacco Use Types Packs/Day Years [...] on filedocumented in this encounter Care Teams Cardiopulmonary Supervisor Relationship Specialty Start Date End Date Alek Esparza MD [address] [place] [phone] PCP - General 09/03/10 04/05/23 documented as of this encounter
--- OUTSIDE RECORDS SUMMARY | 2024-08-29 14:15 | XMS_ITS | Encounter Summary ---
Author Organization [facility] Address [facility] [place] [address] Care Team Providers Care Condominium Association Manager Name Role Phone Alek Esparza MD Primary Care Provider [phone] Reason for Visit * Reason Comments Follow-up Encounter Details Date Type Department Care Team (Late st Contact Info) Description 03/31/2016 8:40 AM EDT [place] [phone] Alvaro Cam MD [facility] [place] [address] Acute idiopathic gout, unspecified site; Vitamin D deficiency Social History Tobacco Use [...] Sign Reading Time Taken Comments Blood Pressure 120/74 03/31/2016 8:47 AM EDT Pulse 72 03/31/2016 8:47 AM EDT Temperature 37 ??C (98.6 ??F) 03/31/2016 8:47 AM EDT Respiratory Rate - - Oxygen Saturation 99% 03/31/2016 8:47 AM EDT Inhaled Oxygen Concentration - - Weight 105.7 kg (233 lb) 03/31/2016 8:47 AM EDT Height 180.3 cm (5' 11) 03/31/2016 8:47 AM EDT Body Mass Index 32.5 03/31/2016 8:47 AM EDT documented in this encounter Patient Instructions * Patient Instructions* Alvaro Cam MD - 04/01/2016 8:26 AM EDT 1) Continue daily febuxostat, 80 mg for now. 2) Continue daily losartan, 50 mg. 3) Check labs today. ?? 4) Return to follow up in 6 months. documented in this encounter Progress Notes * Alvaro Cam MD - 03/31/2016 9:08 AM EDT REASON FOR VISIT: Follow up for tophaceous gout and hyperuricemia. INTERVAL HISTORY: ?? The pt was a 56-year-old male, who returned for a follow up of tophaceous gout and hyperuricemia. The pt noted that since his last visit on Sep 24, 2015, he had resumed daily febuxostat, 40mg for his tophaceous gout and hyperuricemia. He was not using prednisone for additional symptomatic control. He had no recurrent joint pain and swelling since he resumed febuxostat. He tolerated febuxostat without any fever, chest pain, dyspnea, nausea, dysuria, rash, blood clots, polydipsia, dizziness, or mood change. Laboratory studies obtained after his last visit showed that his uric acid level had improved to 3.8. PAST MEDICAL HISTORY: Hypertension ?? Tophaceous gout [...] cervical fusion with anterior cervical diskectomy ?? MEDICATIONS: ?? I reviewed pt's medication entries on electronic record. ?? ALLERGIES: ?? NKDA ?? SOCIAL HISTORY: ?? Alcohol: Regular beer use on weekend. Pt denied any use of tobacco products. Marijuana use. He was with the same female partner for 24 years, with two children. He was currently living with his partner. 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 FAMILY HISTORY: ?? Mother - Unknown, alive at the age of 66. ?? Father - Prostate cancer, alive at the age of 68. PHYSICAL EXAMINATION: ?? Vitals 03/31/2016 SYSTOLIC 120 DIASTOLIC 74 PULSE 72 TEMPERATURE 98.6 RESPIRATIONS Height ([place]) 5' 11 Height (Metric) 180.3 cm Weight ([place]) 233 lbs Weight (Metric) 105.688 kg BODY MASS INDEX 32.5 kg/m2 Pulse Oximetry General - Alert, co-operative, no apparent distress, oriented x 3. ?? HEENT - Conjunctiva pink, no sclerae icterus or malar rash. ?? [...] or at all nail margins or sclerodactyly. ?? Psych - Normal affect. ?? IMPRESSION: ?? 1) Tophaceous gout and 2) marked hyperuricemia in a 56-year-old male. The pt had significantly elevated uric [...] effects. He will undergo repeat laboratory studies today. 3) Hypertension. The pt's blood pressure elevated since he discontinued losartan, which is also a uricosuric agent. His blood pressure is under good control after he resumed losartan, he will continue losartan for now. 4) Vitamin D deficiency. The pt will undergo laboratory studies to evaluate for his vitamin D deficiency. RECOMMENDATIONS: ?? 1) Continue daily febuxostat, 80 mg for now. 2) Continue daily losartan, 50 mg. 3) Check labs today. ?? 4) Return to follow up in 6 months. ?? Alvaro Cam MD, PhD documented in this encounter Plan of Treatment Not on file documented as of this encounter Procedures Procedure Name Priority Date/Time Associated Diagnosis Comments URINALYSIS DIPSTICK Routine 03/31/2016 1 0:59 AM EDT Acute idiopathic gout, unspecified site HEMOGRAM Routine 03/31/2016 9:39 AM EDT Acute idiopathic gout, unspecified site DIFFERENTIAL, AUTOMATED Routine 03/31/2016 9:39 AM EDT Acute idiopathic gout, unspecified site VITAMIN D, 25-HYDROXY Routine 03/31/2016 9:39 AM EDT Vitamin D deficiency SEDIMENTATION RATE Routine 03/31/2016 9: 39 AM EDT Acute idiopathic gout, unspecified site CBC (WITH DIFF) Routine 03/31/2016 9:39 AM EDT Acute idiopathic gout, unspecified site CRP, CARDIAC RISK (HS CRP) Routine 03/31/2016 9:39 AM EDT Acute idiopathic gout, unspecified site URIC ACID Routine 03/31/2016 9:39 AM EDT Acute idiopathic gout, unspecified site COMPREHENSIVE METABOLIC PANEL Routine 03/31/2016 9:39 AM EDT Acute idiopathic gout, unspecified site documented in this encounter Results * Urinalysis without microscopic (03/31/2016 10:59 AM EDT) Glucose, Urine Dipstick Negative Negative mg/dL [facility] Protein, Urine Dipstick Negative Negative mg/dL [facility] Bilirubin, Urine Dipstick Negative Negative mg/dL [facility] Comment: Clinical correlation required for positive Urine Bilirubin results as false positive may occur with some drugs and drug related products. If a false positive is suspected a serum total bilirubin should be considered if clinically indicated. Urobilinogen, Urine Dipstick Normal Normal mg/dL [facility] pH, Urn (dipstick) 6.0 5.0 - 8.0 [facility] Blood, Urine Dipstick Negative Negative mg/dL [facility] Ketone, Urine Dipstick Negative Negative mg/dL [facility] Nitrite, Urine Dipstick Negative Negative [facility] Leukocytes, Urine Dipstick Negative Negative [facility] Appearance, Urine Dipstick Clear Clear [facility] Specific [place] Urine Automated 1.011 1.002 - 1.030 [facility] Color, Urine Dipstick Yellow Yellow [facility] Urine specimen (specimen) 03/31/2016 10:59 AM EDT 03/31/2016 11:07 AM EDT Narrative Resulting Agency Comment Spec In Lab Alvaro Cam MD URINE ORDERABLES [facility] [place] [address] * Differential, Automated (03/31/2016 9:39 AM EDT) Neutrophil % 55.8 % [facility] Neutrophil Absolute 4.04 1.50 - 6.30 x10(3)/[facility] Lymph % 27.1 % [facility] Lymphocytes Abs 2.0 1.0 - 3.6 x10(3)/[facility] Monocyte % 12.0 % [facility] Monocyte Abs 0.9 0.2 - 1.0 x10(3)/[facility] Eos % 4.0 % [facility] Eosinophils Abs 0.3 0.0 - 0.5 x10(3)/[facility] Basophil % 0.7 % [facility] Baso Absolute 0.0 0.0 - 0.2 x10(3)/[facility] Immature Gran % 0.40 % [facility] Comment: Immature granulocytes(IG's)percentage and absolute count will include metamyelocytes, myelocytes, and promyelocytes. Blood smears from CBCs yielding IG's will be scanned manually for concordance. If this scan disagrees with the automated IG or if promyelocytes are noted, a manual differential will be performed. Immature Gran Absolute 0.03 0.00 - 0.05 x10(3)/[facility] Blood specimen (specimen) 03/31/2016 9:39 AM EDT 03/31/2016 9:52 AM EDT Narrative Resulting Agency Comment Spec In Lab Alvaro Cam MD HEMATOLOGY ORDERABLE S [facility] [place] [address] * (ABNORMAL) Hemogram (03/31/2016 9:39 AM EDT) White Blood Cell 7.2 4.0 - 10.0 x10(3)/mc L [facility] Red Blood Cell 4.31(L) 4.63 - 6.08 x10(6)/mc L [facility] Hemoglobin 14.6 13.7 - 17.5 gm/dL [facility] Hematocrit 42.2 40.0 - 51.0 % [facility] Mean Cell Volume 97.9(H) 79.0 - 92.0 fL [facility] Mean Cell Hemoglobin 33.9(H) 25.6 - 32.2 pg [facility] Mean Cell Hemoglobin Concentration 34.6 32.0 - 36.5 gm/dL [facility] Platelet 274 145 - 370 x10(3)/mc L [facility] RDW Standard Deviation 48.8(H) 35.0 - 46.0 fL [facility] RDW coefficient of variation 13.6 10.9 - 14.4 % [facility] Mean Platelet Volume 10.3 9.0 - 12.0 fL [facility] Blood specimen (specimen) 03/31/2016 9:39 AM EDT 03/31/2016 9:52 AM EDT Narrative Resulting Agency Comment Spec In Lab Alvaro Cam MD HEMATOLOGY ORDERABLE S Performing Organization Address [facility] Co de Phone Number [facility] [place] [address] * Uric acid (03/31/2016 9:39 AM EDT) Uric Acid 4.6 3.5 - 8.5 mg/dL [facility] Blood specimen (specimen) 03/31/2016 9:39 AM EDT 03/31/2016 9:52 AM EDT Narrative Resulting Agency Comment Spec In Lab Alvaro Cam MD CHEMISTRY ORDERABLES Performing Organization Address [facility] Co de Phone Number [facility] [place] [address] * High Sensitivity CRP (03/31/2016 9:39 AM EDT) C-Reactive Protein High Sensitivity 1.1 mg/L [facility] Comment: Interpretations: 1) For accurate cardiac risk [...] prevention. ??Circulation 2003; [phone] Blood specimen (specimen) 03/31/2016 9:39 AM EDT 03/31/2016 9:52 AM EDT Narrative Resulting Agency Comment Spec In Lab Alvaro Cam MD CHEMISTRY ORDERABLES Performing Organization Address [facility] Co de Phone Number [facility] [place] [address] * VIT D Total Evaluation (03/31/2016 9:39 AM EDT) Vitamin D Total 25 OH 39 30 - 100 ng/mL [facility] [...] be considered to be insufficient or deficient. http://[email or web address].Showbie/DHnatlkidneyfoundation http://EzLike/DHMCVitD The [employer] iSYS Vitamin D Immunoassay detects both 25-OH Vitamin D2 and 25-OH Vitamin D3, but only a total Vitamin D concentration is reported. Blood specimen (specimen) 03/31/2016 9:39 AM EDT 03/31/2016 9:52 AM EDT Narrative Resulting Agency Comment Spec In Lab Alvaro Cam MD CHEMISTRY ORDERABLES Performing Organization Address [facility]/ZIP Co de Phone Number [facility] [place] [address] * Sedimentation rate (03/31/2016 9:39 AM EDT) Sedimentation Rate Automated 6 0 - 15 mm/hr [facility] Blood specimen (specimen) 03/31/2016 9:39 AM EDT 03/31/2016 9:52 AM EDT Narrative Resulting Agency Comment Spec In Lab Alvaro Cam MD HEMATOLOGY ORDERABLE S [facility] [place] [address] * Comprehensive metabolic panel (non-fasting) (03/31/2016 9:39 AM EDT) Glucose 133 65 - 199 mg/dL [facility] Comment:Diabetes: >=200 mg/d L plus symptoms Blood Urea Nitrogen 12 10 - 20 mg/dL [facility] Creatinine 1.11 0.80 - 1.50 mg/dL [facility] Comment: Please note that the pediatric reference intervals supplied above were not validated at [facility]. Results from pediatric patients should be interpreted in conjunction to the patient's age, height and muscle mass. Sodium 139 135 - 145 mmol/L [facility] Potassium 4.8 3.5 - 5.0 mmol/L [facility] Comment: Please note: ??Patients with WBC >100,000 may have falsely elevated Potassium levels. ??For accurate Potassium quantification in these patients send serum separator tube (gold top) for subsequent determinations. ??Contact the Clinical Chemistry Laboratory if there are any questions. Chloride 102 98 - 107 mmol/L [facility] Carbon Dioxide 26 22 - 31 mmol/L [facility] Anion Gap 11 5 - 15 mmol/L [facility] Calcium 9.0 8.5 - 10.5 mg/dL [facility] Protein, Total 6.7 6.1 - 8.0 gm/dL [facility] Albumin 4.3 3.2 - 5.2 gm/dL [facility] Aspartate Aminotransferase 20 0 - 39 unit/L [facility] Alanine Aminotransferase 21 0 - 55 unit/L [facility] Alkaline Phosphatase 53 40 - 120 unit/L [facility] Bilirubin, Total 0.4 0.2 - 1.3 mg/dL [facility] Bilirubin, Direct 0.1 0.0 - 0.3 mg/dL [facility] Est Glomerular Filtration Rate >60 >=60 [facility] Comment: This estimated GFR (eGFR) value [...] the following links into your internet browser. http://EzLike/DHnkdep http://EzLike/DHMCnkf Blood specimen (specimen) 03/31/2016 9:39 AM EDT 03/31/2016 9:52 AM EDT Narrative Resulting Agency Comment Spec In Lab Alvaro Cam MD CHEMISTRY ORDERABLES [facility] [place] [address] documented in this encounter Visit Diagnoses Diagnosis Acute idiopathic gout, unspecified site Vitamin D deficiency Unspecified vitamin D deficiency documented in this encounter Care Teams Condominium Association Manager Relationship Specialty Start Date End Date Alek Esparza MD [address] [place] [phone] PCP - General 09/03/10 04/05/23 documented as of this encounter
--- OUTSIDE RECORDS SUMMARY | 2024-08-29 14:15 | XMS_ITS | Encounter Summary ---
Author Organization [facility] Address [facility] [place] [address] Care Team Providers Care Airconditioning Plant Operator Name Role Phone Alek Esparza MD Primary Care Provider [phone] Encounter Details Date Type Department Care Team (Late st Contact Info) Description 10/16/2014 1:30 PM EST - 10/16/2014 3:15 PM EST Surgery [facility] [place] [address] Broderick Howard MD [facility] [place] [address] EXCISION OF OLECRANON BURSA (WRVU 3.78) Social History Tobacco Use Types Packs/Day Years [...] closest emergency room or call the hospital rubber press operator at [phone] and ask for physician child development consultant covering for your physician. Questions or problems after 5pm or on a weekend: Call the [facility] rubber press operator at and ask for the physician child development consultant covering for your doctor. * Patient Instructions* [...] is of an urgent nature please call [phone] and ask for the on-call orthopaedic resident. [...] Howard MD - 10/16/2014 3:28 PM EST [facility] Operative Note Patient Name: Brenda Esteban : [id number] MR#: [id number] Case Date: 10/16/2014 Surgeon: Surgeon(s) and Role: * Broderick Howard MD - Primary * Freddie Waite PA - Physician Garage Door Service Technician Preoperative diagnosis: chronic olecranon bursitis Postoperative diagnosis: [...] the elbow was marked with the green naknek. The plan was reviewed with the patient [...] EST 10/16/2014 2:33 PM EST Narrative GHAZALA ELAM - 10/16/2014 2:33 PM EST Specimen requisition ordered. ??Separate Pathology report to follow Broderick Howard MD PATHOLOGY/CYTOLOGY O RDERABLES [facility] * Surgical Pathology Report (10/16/2014 2:22 PM EST) Final Diagnosis ? [facility] ? Provider: ?? BRODERICK HOWARD ? Pt. Name: ?? TELLO BRENDA Emili ? Acc #: ?[id number] ?Pt. ? Col Date: ?? 10/16/2014 ?/Sex: [...] KDL ? 10/18/14 Verified by: ? Ace Mlian MD ? Dermatopathologist, Bone & Soft Tissue [...] is submitted for non-aqueous ? processing. ??Additional parts counter representative sections are submitted. ??(R3) ? B [...] Clinical History: ? Chronic olecranon bursitis ? [facility] ? Provider: ?? BRODERICK HOWARD ? Pt. Name: ?? BRENDA ESTEBAN ? Acc #: ?[id number] ?Pt. ? Col Date: ?? 10/16/2014 ?/Sex: ?1960,(54 years),Male ? Rec Date: ?? 10/16/2014 ?LOC: ?[facility] ? SURGICAL PATHOLOGY ? Clinical Diagnosis: ? Chronic olecranon bursitis 10/18/2014 3:14 PM [facility] BONE STRUCTURE / Unknown 10/16/2014 2:22 PM EST 10/16/2014 2:22 PM EST BONE STRUCTURE / Unknown 10/16/2014 2:22 PM EST 10/16/2014 2:22 PM EST Broderick Howard MD PATHOLOGY/CYTOLOGY O CASSIE Performing Organization Address City/[facility]/ZIP Co de Phone Number LUIZINO WOOTENELIZABETH [facility] [place] [address] * Specimen to Pathology (surgical or derm) (10/16/2014 2:22 PM EST) AP Specimen 10/16/2014 2:22 PM EST 10/16/2014 2:22 PM EST Narrative GHAZALA SUGARELIZABETH - 10/16/2014 2:22 PM EST Specimen requisition ordered. ??Separate Pathology report to follow Broderick Howard MD PATHOLOGY/CYTOLOGY O CASSIE Performing Organization Address [facility] Co de Phone Number GHAZALA ELAM documented in this encounter Visit Diagnoses Diagnosis Pain in right elbow Pain in joint, upper arm Pain in [...] Audra Amato RN)[phone] (Given - Provider: Audra Amato, SKY)1604 (Given - Provider: Audra Amato RN) documented in this encounter Care Teams Airconditioning Plant Operator Relationship Specialty Start Date End Date Alek Esparza MD [address] [place] [phone] PCP - General 09/03/10 04/05/23 documented as of this encounter
--- OUTSIDE RECORDS SUMMARY | 2024-08-29 14:15 | XMS_ITS | Encounter Summary ---
[place] [address] Care Team Providers Care Robot Operator Name Role Phone Alek Esparza MD Primary Care Provider [phone] Reason for Referral * Diagnostic Test (Routine) - Closed Specialty Diagnoses / Procedures Referred By Contac t Referred To Contact Radiology Diagnoses Radiculopathy of cervical region Procedures MRI Cervical Spine wo Contrast (Generic) Alek Arellano PA [facility] [address] [place] [address] Referral ID Status Reason Start Date Expiration Date V isits Requested Visits Authorized Closed Specialty Service Requested 04/04/2017 06/02/2017 1 1 Reason for Visit * Diagnostic Test (Routine) - Closed Specialty Diagnoses / Procedures Referred By Contac t Referred To Contact Radiology Diagnoses Radiculopathy of cervical region Procedures MRI Cervical Spine wo Contrast (Generic) Alek Arellano PA [facility] [address] [place] [address] Referral ID Status Reason Start Date Expiration Date V isits Requested Visits Authorized Closed Specialty Service Requested 04/04/2017 06/02/2017 1 1 Encounter Details Date Type Department Care Team (Latest Contact Info) Description 04/08/2017 2:06 PM EDT - 04/08/2017 11:59 PM EDT Hospital Encounter MRI at [facility] [place] [address] Joao Perdue MD [facility] [address] Radiculopathy of cervical region Discharge Disposition: Home [...] Sig Dispensed Refills Start Date End Date VIAGRA 100 mg Tablet TAKE 1 TABLET [...] Procedure Name Priority Date/Time Associated Diagnosis Comments MRI CERVICAL SPINE WO CONTRAST Routine 04/08/2017 3:17 PM EDT Radiculopathy of cervical region documented in this encounter Results * MRI Cervical Spine [...] the left at C4-C5. Joao Perdue MD IMG MRI ORDERABLES documented in this encounter Visit Diagnoses Diagnosis Radiculopathy of cervical region Brachial neuritis or radiculitis nos documented in this encounter Care Teams Robot Operator Relationship Specialty Start Date End Date Alek Esparza MD [address] [place] [phone] PCP - General 09/03/10 04/05/23 documented as of this encounter
--- OUTSIDE RECORDS SUMMARY | 2024-08-29 14:15 | XMS_ITS | Encounter Summary ---
Author Organization [facility] [place] [address] Care Team Providers Care Surface Lay Out Technician Name Role Phone Alek Esparza MD Primary Care Provider [phone] Reason for Visit * Reason Onset Date Comments Other 09/24/2015 results Encounter Details Date Type Department Care Team (Late st Contact Info) Description 09/24/2015 Telephone [place] [phone] Shonna Cristina RN Other (results) Social History Tobacco Use Types Packs/Day Years [...] Telephone Encounter - Shonna Cristina RN - 09/24/2015 3:13 PM EST Called [facility] and left message relaying Dr. Cam's message below. Received message from Aissatou rendon rx Dr. Cam sent in. Asked her to change to Uloric 40 mg tablet. 1 tablet daily. Quantity 30 with 5 refills. * Telephone Encounter - Shonna Cristina RN - 09/24/2015 3:08 PM EST ----- Message from Alvaro Cam MD sent at 09/24/2015 1:18 PM EST ----- Rony Kilpatrick, Could you please let this pt know that his uric acid level has dropped back down to 3.8? I faxed a script to his pharmacy for Uloric, 40 mg rather than 80 mg. Thanks Alvaro documented in this encounter Plan of Treatment Not on file documented as of this encounter Visit Diagnoses Not on filedocumented in this encounter Care Teams Surface Lay Out Technician Relationship Specialty Start Date End Date Alek Esparza MD [address] [place] [phone] PCP - General 09/03/10 04/05/23 documented as of this encounter
--- OUTSIDE RECORDS SUMMARY | 2024-08-29 14:15 | XMS_ITS | Encounter Summary ---
Author Organization [facility] [place] [address] Care Team Providers Care Supervisor Cytology Name Role Phone Alek Esparza MD Primary Care Provider [phone] Encounter Details Date Type Department Care Team (Late st Contact Info) Description 05/28/2017 [place] [phone] Frida Ogden LNA Social History Tobacco Use Types Packs/Day [...] encounter Miscellaneous Notes * Telephone Encounter - Frida Ogden LNA - 05/28/2017 10:31 AM EDT Enoc Esteban :1960 Contact made with patient: I spoke to Mr. Esteban at 10:35 AM regarding his upcoming cervical injection scheduled on 05/29/17 (date) scheduled at 9:15 (time) with Dr. Mick Tolliver MD. Medication and Allergy reconciliation: 1. Changes were made in the telephone encounter per patient; marked as reviewed, and closed. 2. Patient confirmed no IVP dye allergy. 3. Have you had any steroid injections anywhere in your body within the last two weeks? no Arrival time: The patient was instructed to arrive at 8:45 (30 minutes prior to procedure start time) Fish Culturist: The patient was reminded that they need to have a delivery truck driver accompany them to his procedure who will remain onsite. Antibiotics/Skin assessment/Illness symptoms/Pain level assessment : 1. The patient confirmed that he is not taking antibiotics at this time. 2. The patient confirmed that he does not have any rashes, blisters, or skin breakdown on their body. 3. The patient confirmed that he does not have any active infections. 4. The patient confirmed that he does not have any symptoms of illness: fever, chills, cold, flu, nausea, vomiting. 5. The patient confirmed that he isstill experiencing significant pain. (Significant pain is defined as interfering with performing ADL.) Pain and Anti-anxiety Medications: 1. Nerve Block [...] of any diagnosed bleeding disorders: No Anticoagulants: No NPO instructions given to patient: 1. Last solid food intake until 3:15 (6 hours prior to procedure). 2. Clear liquids (kathrin katharine, tea, black coffee, water, grape juice, apple juice, or cranberry juice) only intake until 7:15 (2 hours prior to procedure). Diabetic instructions: Patient was advised to inform their PCP regarding safe fasting and the NPO requirements for their upcoming procedure and given the [facility] Nurse Triage Line . Implant: Patient has pacemaker/defibrillator: No Prior to checking in at [employer] Fish And Wildlife Technician, please be sure to empty your bladder. Patient confirmed understanding that if they do not follow the above their instructions, their procedure is likely to be cancelled. [place] [place] documented in this encounter Plan of Treatment Not on file documented as of this encounter Visit Diagnoses Not on filedocumented in this encounter Care Teams Supervisor Cytology Relationship Specialty Start Date End Date Alek Esparza MD [address] [place] [phone] PCP - General 09/03/10 04/05/23 documented as of this encounter
--- OUTSIDE RECORDS SUMMARY | 2024-08-29 14:15 | XMS_ITS | Encounter Summary ---
Author Organization [facility] [place] [address] Care Team Providers Care Plate Cleaner Name Role Phone Alek Esparza MD Primary Care Provider [phone] Encounter Details Date Type Department Care Team (Late st Contact Info) Description 04/19/2015 [place] [phone] Rosetta Huizar LPN Social History Tobacco Use Types Packs/Day [...] Telephone Encounter - Shonna Cristina RN - 04/20/2015 3:19 PM EDT Enoc returned call. Relayed Dr. Cam's message below. He verbalized understanding. He needs both prescriptions sent to his pharmacy, [facility] in [place], [place] * Telephone Encounter - Rosetta Huizar LPN - 04/19/2015 2:11 PM EDT Could you please let this pt know that his uric level has increased from 3.8 to 9.2 since January 2015? So he needs to resume his Uloric and losartan. Thanks Alvaor Message above from Dr. Cam. Called and L/M to RTC. documented in this encounter Plan of Treatment Not on file documented as of this encounter Visit Diagnoses Not on filedocumented in this encounter Care Teams Plate Cleaner Relationship Specialty Start Date End Date Alek Esparza MD [address] [place] [phone] PCP - General 09/03/10 04/05/23 documented as of this encounter
--- OUTSIDE RECORDS SUMMARY | 2024-08-29 14:15 | XMS_ITS | Encounter Summary ---
Author Organization [facility] Address [facility] [place] [address] Care Team Providers Care Senior Engineering Manager Name Role Phone Alek Esparza MD Primary Care Provider [phone] Reason for Referral * Surgical (Routine) - Closed Specialty Diagnoses / Procedures Referred By Contyosvany t Referred To Contact Orthopaedics Diagnoses Tophaceous gout Alvaro Cam MD [facility] [place] [address] [facility] [address] [place] [address] Referral ID Status Reason Start Date Expiration Date V isits Requested Visits Authorized [id number] Closed Consult, Test & Treat 03/20/2014 09/16/2014 1 1 Reason for Visit * Reason Comments Follow-up Encounter Details Date Type Department Care Team (Late st Contact Info) Description 03/20/2014 3:00 PM EDT [place] [phone] Alvaro Cam MD [facility] [place] [address] Tophaceous gout (Primary Dx) Discharge Disposition: Home Social History Tobacco Use [...] Sign Reading Time Taken Comments Blood Pressure 125/81 03/20/2014 2:52 PM EDT Pulse 88 03/20/2014 2:52 PM EDT Temperature 36.5 ??C (97.7 ??F) 03/20/2014 2:52 PM ED T Respiratory Rate - - Oxygen Saturation 99% 03/20/2014 2:52 PM EDT Inhaled Oxygen Concentration - - Weight 108 kg (238 lb) 03/20/2014 2:52 PM EDT Height 180.3 cm (5' 11) 03/20/2014 2:52 PM EDT Body Mass Index 33.19 03/20/2014 2:52 PM EDT documented in this encounter Patient Instructions * Patient Instructions* Alvaro Cam MD - 03/25/2014 9:51 PM EDT 1) Continue Uloric, 80 mg daily. 2) Refer to Orthopedic Surgery. 3) Return to follow up in 3-4 months. documented in this encounter Progress Notes * Alvaro Cam MD - 03/20/2014 2:58 PM EDT REASON FOR VISIT: Follow up for tophaceous gout and hyperuricemia. INTERVAL HISTORY: The pt was a 54-year-old male, who returned for a follow up of tophaceous gout and hyperuricemia. The pt noted that since his last visit on January 03, 2014, he continued to be on daily febuxostat, 80 mg for his tophaceous gout and hyperuricemia. He was also on losartan for blood pressure control and hyperuricemia. He finished a course of antibiotics with dicloxacillin for septic bursitisof the right elbow. The right elbow pain and welling was completely remitted following the use of dicloxacillin. He tolerated febuxostat and losartan well without any fever, chest pain, shortness of breath, nausea, dysuria, headache, polydipsia, rash, or blood clots. PAST MEDICAL HISTORY: Hypertension Tophaceous gout Hyperuricemia [...] with his partner. 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 FAMILY HISTORY: Mother - Unknown, alive at the age of 66. Father - Prostate cancer, alive at the age of 68. PHYSICAL EXAMINATION: Vitals 03/20/2014 SYSTOLIC 125 DIASTOLIC 81 PULSE 88 TEMPERATURE 97.7 Height (Sri Lankan) 5' 11 Height (Metric) 180.3 cm Weight (Sri Lankan) 238 lbs Weight (Metric) 107.956 kg BODY MASS INDEX 33.21 kg/m2 Pulse Oximetry 99 General - Alert, co-operative, no apparent distress, oriented x 3. HEENT - Conjunctiva pink, no sclerae icterus or malar rash. Heart - Regular rate and rhythm; normal S1 and S2; no murmurs, rubs, or gallops. Lungs - Symmetric, no respiratory distress, clear to auscultation bilaterally. Abdomen - Soft, non-tender, non-distended, bowel sound present. Back - Erect, FROM; no spinal or paraspinal tenderness on palpation. Extremities - Upper extremities: FROM of all joints; no joint tenderness on palpation; + large right olecranon tophus nodule; no signs of synovitis, soft tissue swelling, of joint effusion; no clubbing, cyanosis, or edema. Skin - Smooth and intact, no rash, telangiectasia on skin or at all nail margins or sclerodactyly. Neuro - No sensory or motor function deficit. Psych - Normal affect. IMPRESSION: 1) Tophaceous [...] He will continue current regimen. He will also be referred to Orthopedic Surgery for consideration of resection of right elbow tophus and bone spur. 3) Hypertension. The pt will continue losartan, which is a uricosuric agent, for blood pressure control. RECOMMENDATIONS: 1) Continue Uloric, 80 mg daily. 2) Refer to Orthopedic Surgery. 3) Return to follow up in 3-4 months. Alvaro Cam MD, PhD documented in this encounter Plan of Treatment Scheduled Referrals Name Type Priority Associated Diagnoses Order Schedule Referral to Orthopaedics Outpatient Referral Routine Tophaceous gout Ordered: 03/20/2014 documented as of this encounter Visit Diagnoses Diagnosis Tophaceous gout- Primary Chronic gouty arthropathy with tophus (tophi) documented in this encounter Care Teams Senior Engineering Manager Relationship Specialty Start Date End Date Alek Esparza MD [address] [place] [phone] PCP - General 09/03/10 04/05/23 documented as of this encounter
--- OUTSIDE RECORDS SUMMARY | 2024-08-29 14:16 | XMS_ITS | Encounter Summary ---
Author Organization [facility] [place] [address] Care Team Providers Care Vice President Of News Name Role Phone Alek Esparza MD Primary Care Provider [phone] Encounter Details Date Type Department Care Team (Late st Contact Info) Description 12/26/2013 Telephone [place] [phone] Rosetta Huizar LPN Social History Tobacco Use [...] Telephone Encounter - Marti Leo RN - 12/27/2013 2:34 PM EDT Ask him to come in on AM or Thu AM so that I can work him up. -- Dr. Cam Will forward to escrow secretary to schedule. * Telephone Encounter - Rosetta Huizar LPN - 12/26/2013 3:38 PM EDT Enoc calls and said he fell on his right elbow where he has a nodule the other day and it is swollen twice the size and is wondering what he should do. I called and spoke to Enoc and he said he fell and he felt the nodule move so he pushed on it an it moved back but it hurts and he want's to know what Dr. Cam recommends. I suggested he call his PCP and get seen to get an xray to make sure he didn't fracture his elbow. He said he wanted to be seen by Dr. Cam because he know about his elbow. He was referred awhile back to someone and they said they wont do anything with his elbow because it would dissolve in 4-5 years. Unless something happened. I suggested pt be seen by that provider he said no and he couldn't remember his name. I told himput ice on his elbow and I will send the message to Dr. Cam. documented in this encounter Plan of Treatment Not on file documented as of this encounter Visit Diagnoses Not on filedocumented in this encounter Care Teams Vice President Of News Relationship Specialty Start Date End Date Alek Esparza MD [address] [place] [phone] PCP - General 09/03/10 04/05/23 documented as of this encounter
--- OUTSIDE RECORDS SUMMARY | 2024-08-29 14:16 | XMS_ITS | Encounter Summary ---
Author Organization [facility] Address [facility] [place] [address] Care Team Providers Care Client Engagement Manager Name Role Phone Alek Esparza MD Primary Care Provider [phone] Reason for Visit * Reason Comments Other nodule on elbow Encounter Details Date Type Department Care Team (Late st Contact Info) Description 09/15/2012 1:45 PM EST Office [place] [phone] Maurice Ramos MD [address] [place] [address] Jyoti roman (Primary Dx) Discharge Disposition: Home Social History Tobacco Use Types Packs/Day Years Used Date Smoking Tobacco: Never Sex and Gender Information Value Date Recorded Sex Assigned at Not on file Gender Identity Not on file Sexual Orientation Not on file documented as of this encounter Last Filed Vital Signs Vital Sign Reading Time Taken Comments Blood Pressure - - Pulse - - Temperature - - Respiratory Rate - - Oxygen Saturation - - Inhaled Oxygen Concentration - - Weight 113.9 kg (251 lb 1.7 oz) 09/15/2012 1:37 PM EST Height 177.8 cm (5' 10) 09/15/2012 1:37 PM EST Body Mass Index 36.03 09/15/2012 1:37 PM EST documented in this encounter Progress Notes * Maurice Ramos MD - 09/15/2012 2:05 PM EST HPI:This very pleasant 52 year old gentleman has worked in the [employer] most of his life, and has intermittently had joint pains. These worsened in symptoms over the summer, and he was eventually diagnosed with tophaceous gout. He just started oral meds about a week ago. He has a sizable tophus over his right olecranon bursa. This is not painful. It has not really increased in size too much. He had it aspirated, and that was painful. No history of infection. He is referred here for further evaluation and treatment. Past Medical History:Gout. Hypertension, asthma, sleep apnea Past Surgical History:C4-5-6 fusion, right foot surgery, bilateral CTR, right knee scope. Medications: Current Outpatient Prescriptions on File Prior to Visit Medication Sig Dispense Refill ??? allopurinol (ZYLOPRIM) 300 mg tablet Take 1 tablet by mouth daily. 30 tablet 4 ??? predniSONE (DELTASONE) 5 mg tablet Take 2 tablets by mouth daily. 120 tablet 3 ??? hydroCODone-acetaminophen (NORCO) 10-325 mg per tablet Take 1 tablet by mouth 2 times daily as needed. ??? zolpidem (AMBIEN) 10 mg tablet Take 10 mg by mouth nightly as needed. ??? ibuprofen (MOTRIN) 800 mg tablet ??? albuterol-ipratropium (COMBIVENT) 18-103 mcg/Actuation inhaler ??? predniSONE (DELTASONE) 10 mg tablet Take 10 mg by mouth daily. Allergies:No Known Allergies Review of symptoms:Negative for cardiac, pulmonary, GI or endocrine issues. Social History:Lives with his partner and their son. No tobacco. Drinks beer. 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 Examination:A pleasant fellow. There were no vitals filed for this visit. Sclerae are anicteric. Neck without lymphadenopathy, thyromegaly or carotid bruits. Heart has a regular rate and rhythm without murmurs rubs or clicks. Lungs are clear to auscultation Abdomen is soft with active bowel sounds. No masses, no hepatosplenomegaly. Extremities are warm and well-perfused. There is a 3 cm tophus over the right olecranon bursa. Thisis freely mobile without overlying erythema, warmth, induration or fluctuance. Neuro with symmetric strength. No weakness, numbness or tingling. No focal abnormalities. 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 If this increases in size, becomes symptomatic or becomes infected, excision would seem reasonable. Because of its relation to the bursa, this is best done by an orthopaedist. I would be glad to see this very pleasant gentleman back at any point should the need arise. He is happy with this treatment plan. documented in this encounter Plan of Treatment Not on file documented as of this encounter Visit Diagnoses Diagnosis Gout tophi- Primary Chronic gouty arthropathy with tophus (tophi) documented in this encounter Care Teams Client Engagement Manager Relationship Specialty Start Date End Date Alek Esparza MD [address] [place] [phone] PCP - General 09/03/10 04/05/23 documented as of this encounter
--- OUTSIDE RECORDS SUMMARY | 2024-08-29 14:16 | XMS_ITS | Encounter Summary ---
Author Organization [facility] Address [facility] [place] [address] Care Team Providers Care Assistant Professor Of Marine Biology Name Role Phone Alek Esparza MD Primary Care Provider [phone] Reason for Referral * Occupational Therapy (Routine) - Complete - Patient Seen (External Appt Consult Notes Rcv'd) Specialty Diagnoses / Procedures Referred By Contac t Referred To Contact Occupational Therapy Diagnoses Fracture of finger, proximal, closed Rohan Duarte MD [facility] [place] [address] [facility] [place] [address] Referral ID Status Reason Start Date Expiration Date Visits Requested Visits Authorized [id number] Complete - Patient Seen (External Appt Consult Notes Rcv'd) Evaluate and Treat 02/21/2013 08/20/2013 1 1 Reason for Visit * Reason Comments Follow Up Surgery SP LEFT 5TH FINGER O RIF DOS 02/08/13, DOI 01/30/13 Encounter Details Date Type Department Care Team (Late st Contact Info) Description 02/21/2013 2:30 PM EDT Office [place] [phone] Rohan Duarte MD [facility] [place] [address] Fracture of left small finger, proximal, closed (Primary Dx) Discharge Disposition: Home Social History [...] Reading Time Taken Comments Blood Pressure 134/86 02/21/2013 2:15 PM EDT Pulse 68 02/21/2013 2:15 PM EDT Temperature 36.6 ??C (97.8 ??F) 02/21/2013 2:15 PM ED T Respiratory Rate - - Oxygen Saturation - - Inhaled Oxygen Concentration - - Weight 111.1 kg (245 lb) 02/21/2013 2:15 PM EDT STATED Height 177.8 cm (5' 10) 02/21/2013 2:15 PM EDT STATED Body Mass Index 35.15 02/21/2013 2:15 PM EDT documented in this encounter Progress Notes * Rohan Duarte MD - 02/21/2013 2:23 PM EDT Enoc Esteban returns for evaluation of his left small finger proximal phalanx fracture status post closed reduction and pinning. His finger is nicely aligned. His pin sites are clean. His finger essentially is well perfused. X-rays were done which show fracture to be anatomically aligned. Today, he is being placed into a splint that will be custom made by our hand therapist. He will leave this in place and keep his pin sites clean and dry. He will see me back in two weeks for new x-rays of his small finger. If adequate healing is seen, I will remove his pins and start range of motion. documented in this encounter Plan of Treatment Scheduled Referrals Name Type Priority Associated Diagnoses Order Schedule Referral to Occupational Therapy Outpatient Referral Routine Fracture of left small finger, proximal, closed Ordered: 02/21/2013 documented as of this encounter Results * XR finger minimum 2 views (03/09/2013 9:17 AM EDT) Anatomical Region Laterality Modality Hand N/A Radiographic Caro ging 03/09/2013 9:17 AM EDT Narrative 03/09/2013 11:29 AM EDT Examination FINGER MIN 2 VIEWS/LEFT Clinical History left small finger fracture, assess healing Comparison 02/21/2013. Technique 3 views left small finger. Findings As seen on the previous study K-wire fixation is again seen at the level of the patient's midshaft fracture of the proximal phalanx of the small finger. ??No change in fixation or alignment is identified. ??There is at most only a small amount of marginal callus. ??I do not see solid bridging bone at this point. Procedure Note Georgi Branch MD - 03/09/2013 Examination FINGER MIN 2 VIEWS/LEFT Clinical History left small finger fracture, assess healing Comparison 02/21/2013. Technique 3 views left small finger. Findings As seen on the previous study K-wire fixation is again seen at the levelof the patient's midshaft fracture of the proximal phalanx of the small finger.No change in fixation or alignment is identified. There is at most only asmall amount of marginal callus. I do not see solid bridging bone at thispoint. Rohan Duarte MD IMG DX ORDERABLES documented in this encounter Visit Diagnoses Diagnosis Fracture of left small finger, proximal, closed- Primary Closed fracture of middle or proximal phalanx or phalanges of hand Fracture of left small finger, proximal, closed Closed fracture of middle or proximal phalanx or phalanges of hand documented in this encounter Care Teams Assistant Professor Of Marine Biology Relationship Specialty Start Date End Date Alek Esparza MD [address] [place] [phone] PCP - General 09/03/10 04/05/23 documented as of this encounter
--- OUTSIDE RECORDS SUMMARY | 2024-08-29 14:16 | XMS_ITS | Encounter Summary ---
Author Organization [facility] Address [facility] [place] [address] Care Team Providers Care Development Specialist Name Role Phone Alek Esparza MD Primary Care Provider [phone] Encounter Details Date Type Department Care Team (Latest Contact Info) Description 02/02/2013 4:03 PM EDT - 02/02/2013 11:59 PM EDT Hospital Encounter XRay at [address] [place] [address] Traumatic arthropathy of left hand Social History Tobacco Use Types Packs/Day [...] 10 mg by mouth nightly as needed. febuxostat (ULORIC) 40 mg tablet Take 1 tablet by mouth daily. 60 tablet 4 12/03/2012 03/22/2013 losartan (COZAAR) 50 mg tablet Take 1 tablet by mouth daily. 60 tablet 3 12/03/2012 07/28/2013 ergocalciferol (ERGOCALCIFEROL) 50,000 unit capsule Take 1 capsule by mouth once a week. 6 capsule 1 12/03/2012 02/21/2013 LORazepam (ATIVAN) 1 mg tablet Take 15 mg by mouth daily as needed. 02/21/2013 predniSONE (DELTASONE) 5 mg tablet Take 2 tablets by mouth daily. 120 tablet 2 12/01/2012 03/09/2013 hydroCODone-acetaminoph en (NORCO) 10-325 mg per tablet Take 1 tablet by mouth 2 times daily as needed. 02/08/2013 ibuprofen (MOTRIN) 800 mg tablet 12/12/2009 09/01/2013 documented as of this encounter Plan of Treatment Not on file documented as of this encounter Procedures Procedure Name Priority Date/Time Associated Diagnosis Comments XR HANDS MIN 3 VIEWS BILAT Routine 02/02/2013 4:13 PM EDT Traumatic arthropathy of left hand documented in this encounter Results * XR hands bilateral (02/02/2013 4:13 PM EDT) Anatomical Region Laterality Modality Hand Bilateral Radiographic Caro ging 02/02/2013 4:13 PM EDT Narrative 02/03/2013 9:32 AM EDT Examination BILATERAL HANDS MIN 3 VIEWS Clinical History left 4-5 finger trauma, ? fracture Comparison 08/04/2012. Technique 4 views bilateral hands. Findings There is a comminuted mildly displaced fracture of the small finger proximal phalanx left hand with pronounced apex volar angulation. ??Linear fracture lines extend to the margin of but not definitely intraarticularly at the MCP joint. ?? No additional fracture or dislocation is identified. ??Again noted is joint space narrowing of the right 4th DIP joint with subchondral sclerosis and marginal osteophyte formation, similar to prior with additional mild right small PIP joint osteoarthritic changes. ??No definite erosions or MCP joint space narrowing. ??No chondrocalcinosis. Impression Comminuted angulated fracture of the left small finger proximal phalanx, as described. Findings communicated to Dr. Cam at time of exam interpretation on 02/03/13 at 9:30 am. Procedure Note Chao Roy MD - 02/03/2013 Examination BILATERAL HANDS MIN 3 VIEWS Clinical History left 4-5 finger trauma, ? fracture Comparison 08/04/2012. Technique 4 views bilateral hands. Findings There is a comminuted mildly displaced fracture of the small fingerproximal phalanx left hand with pronounced apex volar angulation. Linear fracturelines extend to the margin of but not definitely intraarticularly at the MCPjoint. No additional fracture or dislocation is identified. Again noted is joint space narrowing of the right 4th DIP joint with subchondral sclerosis and marginal osteophyte formation, similar to prior with additional mild right small PIP joint osteoarthritic changes. No definite erosions or MCP joint space narrowing. No chondrocalcinosis. Impression Comminuted angulated fracture of the left small finger proximal phalanx,as described. Findings communicated to Dr. Cam at time of exam interpretation on02/03/13 at 9:30 am. Alvaro Cam MD IMG DX ORDERABLES documented in this encounter Visit Diagnoses Diagnosis Traumatic arthropathy of left hand Traumatic arthropathy, hand documented in this encounter Care Teams Development Specialist Relationship Specialty Start Date End Date Alek Esparza MD [address] [place] [phone] PCP - General 09/03/10 04/05/23 documented as of this encounter
--- OUTSIDE RECORDS SUMMARY | 2024-08-29 14:16 | XMS_ITS | Encounter Summary ---
Author Organization [facility] Address [facility] [place] [address] Care Team Providers Care Psychological Operations Specialist Name Role Phone Alek Esparza MD Primary Care Provider [phone] Encounter Details Date Type Department Care Team (Late st Contact Info) Description 02/07/2013 8:15 AM EDT - 02/07/2013 11:59 PM EDT Hospital Encounter XRay at [address] [place] [address] Pain in limb; Hand pain Social History Tobacco Use Types Packs/Day Years [...] 10 mg by mouth nightly as needed. hydroCODone-acetaminoph en (VICODIN) 5-500 mg per tablet Take 1-2 tablets by mouth every 6 hours as needed for Pain. 36 tablet 1 02/08/2013 10/16/2014 febuxostat (ULORIC) 40 mg tablet Take 1 [...] as of this encounter Plan of Treatment Pending Results Name Type Priority Associated Diagnoses Date /Time XR hand diagnostic minimum 3 views Imaging Routine Pain in limb 02/07/2013 8:21 AM EDT Scheduled Orders Name Type Priority Associated Diagnoses Orde r Schedule XR hand diagnostic minimum 3 views Imaging Routine Pain in limb Once PRN (for Radiant use) for 1 Occurrences starting 02/07/2013 until 02/07/2013 documented as of this encounter Procedures Procedure Name Priority Date/Time Associated Diagnosis Comments XR HAND DIAGNOSTIC MINIMUM 3 VIEWS Routine 02/07/2013 8:21 AM EDT Hand pain documented in this encounter Results * XR hand diagnostic minimum 3 views (02/07/2013 8:21 AM EDT) Anatomical Region Laterality Modality Hand N/A Radiographic Caro ging 02/07/2013 8:21 AM EDT Narrative 02/07/2013 10:41 AM EDT Examination DIAG HAND MIN 3 VIEWS/LEFT Clinical History LEFT HAND FX EVAL ? CHANGE IN ALIGNMENT; WORRELL/WARHOLD Comparison Is made with the study of 02/02/2013. Technique Findings Findings: ??There is now approximately 100 degrees of posterior angulation of the distal portion of the fracture site posteriorly. ??Bony union is not seen. ?? The remainder of the examination is unchanged. ?? Impression slight increase in angulation when compared with the prior study which was measured at 117 degrees. Procedure Note Enoc Stubbs MD - 02/07/2013 Examination DIAG HAND MIN 3 VIEWS/LEFT Clinical History LEFT HAND FX EVAL ? CHANGE IN ALIGNMENT; WORRELL/WARHOLD Comparison Is made with the study of 02/02/2013. Technique Findings Findings: There is now approximately 100 degrees of posterior angulationof the distal portion of the fracture site posteriorly. Bony union is notseen. The remainder of the examination is unchanged. Impression slight increase in angulation when compared with the prior study whichwas measured at 117 degrees. Rohan Duarte MD IMG DX ORDERABLES documented in this encounter Visit Diagnoses Diagnosis Pain in limb Hand pain Pain in limb documented in this encounter Care Teams Psychological Operations Specialist Relationship Specialty Start Date End Date Alek Esparza MD [address] [place] [phone] PCP - General 09/03/10 04/05/23 documented as of this encounter
--- OUTSIDE RECORDS SUMMARY | 2024-08-29 14:16 | XMS_ITS | Encounter Summary ---
Author Organization [facility] Address [facility] [place] [address] Care Team Providers Care Roof Bolter Helper Name Role Phone Alek Esparza MD Primary Care Provider [phone] Encounter Details Date Type Department Care Team (Late st Contact Info) Description 02/08/2013 12:15 PM EDT - 02/08/2013 1:30 PM EDT Surgery [facility] [place] [address] Etta Duarte MD [facility] [place] [address] CLOSED TREATMENT FX PHALANX OR PHALANGES (WRVU 1.17) Social History Tobacco Use Types Packs/Day Years [...] Reading Time Taken Comments Blood Pressure 134/92 02/08/2013 11:04 AM EDT Pulse 75 02/08/2013 11:04 AM EDT Temperature 36.6 ??C (97.9 ??F) 02/08/2013 11:04 AM E DT Respiratory Rate 18 02/08/2013 11:04 AM EDT Oxygen Saturation 98% 02/08/2013 11:04 AM EDT Inhaled Oxygen Concentration - - Weight 111.1 kg (245 lb) 02/08/2013 11:04 AM EDT Height 180.3 cm (5' 11) 02/08/2013 11:04 AM EDT Body Mass Index 34.17 02/08/2013 11:04 AM EDT documented in this encounter Discharge Instructions * Discharge Instructions* Arely Alberts RN - 02/08/2013 1:59 PM EDT General Anesthesia Discharge Instructions Go home and rest. You may be sleepy for several hours. Take it easy as sudden position changes may cause nausea. Be careful on stairs, as you may be unsteady on your feet. Do not smoke if you are alone. Follow a light to regular diet as tolerated today. If nausea occurs, start with clear liquids, and progress slowly to a regular diet. Do not drive, operate machinery, drink alcoholic beverages, or make important decisions for 24 hours after having general anesthesia. The medications given may change your reaction time or judgement without your awareness. IV site -- slight redness is normal, you can use warm compresses. If tenderness and redness increases or foul drainage occurs, please contact your M.D. Patients who have had endotracheal tubes. (this tube, used by the anesthesia department, is passed down your throat after you are asleep, to ensure safe air passage during your operation). A sore throat is normal due to the tube. Cold liquids or soothing lozenges will help ease the discomfort. The generalized muscle aches are due to the medication given to you just before the tube is inserted. As the medication wears off, you may develop muscle soreness, which usually goes away in 12 - 24 hours. Narcotic pain medications can cause constipation, please ask the surgeons office what they recommend for prevention of this. Some non-pharmaceutical means of constipation prevention include increasing intake of fluids, eating more fruits and vegetables as well as fruit juices. If after 8 hours at home you are unable to pass urine or are experiencing pain from inability to urinate, call the Outpatient Surgery Center at [phone]. If you get an answering machine, we will return your call. If you need to talk to someone immediately, call the [facility] number [phone] ask for your surgeon loss control engineer or call your local MD. You may also proceed to the closest Emergency Department. [facility] 04/05 ask for your doctor loss control engineer * Patient Instructions* Isidoro Lay - 02/08/2013 1:48 PM EDT Surgery: Left 5th Proximal Phalanx percutaneous pinning Diet: You may eat a regular diet as tolerated. Driving: No, not until you are cleared to do so by your Orthopedic clinic. Ideally you should not drive while you are on narcotic pain meds as these can affect judgement and reaction time. Call your Surgeon with any questions. Medications: 1. The pain medication you are on can cause constipation so increase your intake of fluids and fiber while you are on them. You can also take an ekav-[id number] stool softener, colace or senna, to facilitate a bowel movement. 2. If you need a renewal on your narcotic pain medication, you need to give the Orthopedic clinic enough time to process your request. This can take up to three days, so plan accordingly. Wound: Keep dressing in place until follow-up. Activity: No lifting or carrying with left hand. Be careful on stairs, as you may be unsteady on your feet. Call your doctor (#[phone]) if: 1. You have a fever > 101.5 or experience chills Increased discharge from the incision Any redness or swelling around the incision Increased pain or change in the pain that is not controlled by your pain meds WHERE TO CALL WITH QUESTIONS [facility] Ask for the resident loss control engineer for your provider [facility] (7:00am - 5:00pm) Future Appointments Date Time Provider Department Center 02/21/2013 1:45 PM 3a, Cast Room [facility] 02/21/2013 2:30 PM Etta Duarte MD [facility] 02/21/2013 3:00 PM 3a, Cast Room [facility] 04/11/2013 2:45 PM Alvaro Cam MD [facility] documented in this encounter Medications at Time [...] mouth daily. 120 tablet 2 12/01/2012 03/09/2013 ibuprofen (MOTRIN) 800 mg tablet 12/12/2009 09/01/2013 documented as of this encounter H&P Notes * Etta Duarte MD - 02/08/2013 12:15 PM EDT Patient Name: Enoc Esteban Patient Age: 53 y.o. Birthdate: 1960 Admit date: 02/08/2013 Attending Physician: Etta Duarte MD I interviewed and examined Enoc Esteban. There have been no apparent interval changes in his health status since the most recent history and physical was done. ETTA DUARTE MD * Etta Duarte MD - 02/08/2013 12:15 PM EDT Patient Name: Enoc Esteban Patient Age: 53 y.o. Birthdate: 1960 Admit date: 02/08/2013 Attending Physician: Etta Duarte MD Please see H&P note for visit documentation. documented in this encounter Miscellaneous Notes * Miscellaneous - Provider, Scanning - 02/08/2013 11:04 PM EDT * Op Note - Etta Duarte MD - 02/08/2013 1:38 PM EDT [facility] [place] Patient Name: Enoc Esteban : [id number] MR#: [id number] Case Date: 02/08/2013 Surgeon: Surgeon(s) and Role: * Etta Duarte MD - Primary * Isidoro Lay MD - Resident PREOPERATIVE DIAGNOSIS: Proximal phalanx fracture, left small finger. POSTOPERATIVE DIAGNOSIS: Proximal phalanx fracture, left small finger. PROCEDURE PERFORMED: Closed reduction and percutaneous pinning of proximal phalanx fracture, left small finger. ANESTHESIA: General. OPERATIVE INDICATION: The patient is a 53-year-old male who sustained a proximal phalanx fracture of the small finger of his left hand, which was markedly angulated and displaced. He was brought to the operating room for closed reduction and percutaneous pinning of his fracture. SUMMARY OF PROCEDURE: After 2 g of intravenous cefazolin was administered and general anesthesia was performed, the patient's left upper extremity was prepped with a Hibiclens scrub and a ChloraPrep.His upper extremity was draped in usual sterile fashion. A preoperative time-out was performed as per [facility] [place]. His left small finger was examined under fluoroscopy with derotation and flexion of the MCP joint. I was able to anatomically align the proximal phalanx fracture. It was then stabilized with 2 antegrade 0.035-inch smooth K-wire. One was percutaneously inserted through the base of the radial aspect of the proximal phalanx in an anterograde fashion and one was inserted off the ulnar aspect of the base of the proximal phalanx. Each of the pins was passed down the medullary canal across the fracture site and into the distal fragment. Stable reduction in an anatomic alignment was achieved. The pins were then bent and covered with Jurgan's balls. Fluoroscopic examination show the fracture to be anatomically aligned and the pins well positioned. Digital block anesthesia was then done using 4 mL of 0.25% Marcaine. Sterile soft dressings were then applied followed by a plaster splint. The patient was then extubated and transferred to the recovery room in stable condition. Estimated blood loss was minimal. IV fluid replacement was 900 mL of cr ystalloid. He tolerated the procedure well without apparent complications. * OR Attestation - Etta Duarte MD - 02/08/2013 1:38 PM EDT Attestation: Case Date: 02/08/2013 I was present and I participated during the entire procedure. ETTA DUARTE MD 02/08/2013 * Brief Op Note - Etta Duarte MD - 02/08/2013 1:36 PM EDT Brief Operative Note Patient Name: Enoc Esteban : [id number] MR#: [id number] Case Date: 02/08/2013 Surgeon: Surgeon(s) and Role: * Etta Duarte MD - Primary * Isidoro Lay MD - Resident Preoperative diagnosis: left 5th proximal phalanx fracture Postoperative diagnosis: left 5th proximal phalanx fracture Procedure(s): CLOSED TREATMENT FX PHALANX OR PHALANGES Anesthesia: General Complications: none Fluids: 900 cc crystalloid Estimated Blood Loss: none Drains: none Disposition: awakened from anesthesia, extubated and taken to the recovery room in a stable condition, having suffered no apparent untoward event. Condition: doing well without problems (Please see the Surgical Encounter Summary for any Implant and Specimen details pertinent to this patient.) * Miscellaneous - Provider, Mac - 02/08/2013 12:59 PM EDT documented in this encounter Plan of Treatment Pending Results Name Type Priority Associated Diagnoses Date /Time XR Fluoro OR c-arm storage only Imaging Routine 02/08/2013 1:48 PM EDT Scheduled Orders Name Type Priority Associated Diagnoses Orde r Schedule XR Fluoro OR c-arm storage only Imaging Routine Once PRN (for Ra diant use) for 1 Occurrences starting 02/08/2013 until 02/08/2013 documented as of this encounter Procedures Procedure Name Priority Date/Time Associated Diagnosis Comments CLOSED TREATMENT FX PHALANX OR PHALANGES (WRVU 1.17) 02/08/2013 1:00 PM EDT left 5th proximal phalanx fracture documented in this encounter Visit Diagnoses Not on filedocumented in this encounter Administered Medications Inactive Administered Medications - up to 3 most recent administrations Medication Order MAR Action Action Date Dose Rate Site BUpivacaine (PF) (MARCAINE) 0.25 % (2.5 mg/mL) injection ONCE PRN, Starting on e 02/08/13 at 1332, Until Thu02/08/13 at 1627, Intra-Operative (Intra-Procedure), Routine Given 02/08/2013 1:32 PM EDT 10 mg 19- Surgical Site fentaNYL 50mcg/mL injection 25-50 mcg, Intravenous, EVERY 5 MIN PRN, Starting on e 02/08/13 at 1352, Until Thu02/08/13 at 1627, Pain, for breakthrough pain, Hold for respiratory rate less than 10 per minute. Maximum dose: 250 mcg over one hour., PACU Recovery, Routine Given 02/08/2013 2:05 PM EDT 50 mcg Given 02/08/2013 1:57 PM EDT 50 mcg hydroCODone-acetaminophen (VICODIN) 5-500 mg per tablet 1-2 tablet 1-2 tablet, Oral, EVERY 4 HOURS PRN, Starting on e 02/08/13 at 1346, Until 02/08/13 at 1627, Pain, Maximum dose of acetaminophen is 4000 mg from all sources in 24 hours., Routine Given 02/08/2013 1:57 PM EDT 2 tablets lactated ringers infusion 1,000 mL 1,000 mL, at 100 mL/hr, Intravenous, CONTINUOUS, Starting on Thu02/08/13 at 1130, Until Thu02/08/13 at 1627 New Bag 02/08/2013 11:30 AM EDT 1,000 mLs 100 mL/hr documented in this encounter Active and Recently Administered Medications Times are shown in EDT. Scheduled Medication Order 02/06/2013 02/07/2013 02/08/2013 ceFAZolin (ANCEF) 2,000 mg in sodium chloride 0.9% 56.06 mL (COMPLETED) 2,000 mg (2 g), Intravenous, ONCE, 1 dose, On 02/08/13 at 1130, Administer over 30 Minutes, To be administered upon arrival to the OR within one hour prior to incision., Day of Surgery (Day of Procedure), Indication for (Active or Suspected): Prophylaxis 1130 (Due)1257 (Give n - Provider: Loren Harrell CRNA) Continuous Medication Order 02/06/2013 02/07/2013 02/08/2013 lactated ringers infusion 1,000 mL (CANCELED) 1,000 mL, at 100 mL/hr, Intravenous, CONTINUOUS, Starting on 02/08/13 at 1130, Until Thu02/08/13 at 1627 1130 (New Bag - Prov ider: Arely Alberts RN)1336 (Anesthesia Volume Adjustment - Provider: Loren Harrell CRNA) PRN Medication Order 02/06/2013 02/07/2013 02/08/2013 BUpivacaine (PF) (MARCAINE) 0.25 % (2.5 mg/mL) injection (CANCELED) ONCE PRN, Starting on 02/08/13 at 1332, Until 02/08/13 at 1627, Intra-Operative (Intra-Procedure), Routine 1332 (Given - Provid er: Etta Duarte MD) fentaNYL 50mcg/mL injection (CANCELED) 25-50 mcg, Intravenous, EVERY 5 MIN PRN, Starting on 02/08/13 at 1352, Until 02/08/13 at 1627, Pain, for breakthrough pain, Hold for respiratory rate less than 10 per minute. Maximum dose: 250 mcg over one hour., PACU Recovery, Routine 1357 (Given - Provid er: Arely Alberts RN)1405 (Given - Provider: Arely Alberts RN) hydroCODone-acetaminophen (VICODIN) 5-500 mg per tablet 1-2 tablet (CANCELED) 1-2 tablet, Oral, EVERY 4 HOURS PRN, Starting on Thu02/08/13 at 1346, Until Thu02/08/13 at 1627, Pain, Maximum dose of acetaminophen is 4000 mg from all sources in 24 hours., Routine 1357 (Given - Provid er: Arely Alberts RN) documented in this encounter Care Teams Roof Bolter Helper Relationship Specialty Start Date End Date Alek Esparza MD [address] [place] [phone] PCP - General 09/03/10 04/05/23 documented as of this encounter
--- OUTSIDE RECORDS SUMMARY | 2024-08-29 14:16 | XMS_ITS | Encounter Summary ---
Author Organization [facility] Address [facility] [place] [address] Care Team Providers Care Wire Tinner Name Role Phone Alek Esparza MD Primary Care Provider [phone] Encounter Details Date Type Department Care Team ([facility] st Contact Info) Description 03/22/2013 Orders [place] [address] Alvaro Cam MD [facility] [place] [address] Social History Tobacco Use Types Packs/Day Years [...] filedocumented in this encounter Care Teams Wire Tinner Relationship Specialty Start Date End Date Alek Esparza MD [address] [place] [phone] PCP - General 09/03/10 04/05/23 documented as of this encounter
--- OUTSIDE RECORDS SUMMARY | 2024-08-29 14:16 | XMS_ITS | Encounter Summary ---
[facility] [place] [address] Care Team Providers Care Facing Baster Jumpbasting Name Role Phone Alek Esparza MD Primary Care Provider [phone] Reason for Visit * Reason Onset Date Comments Other 12/06/2012 MD request Encounter Details Date Type Department Care Team (Late st Contact Info) Description 12/06/2012 Telephone [place] [phone] Sigrid Sepulveda RN Other (MD request) Social History Tobacco Use Types Packs/Day Years Used Date Smoking Tobacco: Never Sex and Gender Information Value Date Recorded Sex Assigned at Not on file Gender Identity Not on file Sexual Orientation Not on file documented as of this encounter Miscellaneous Notes * Telephone Encounter - Sigrid Sepulveda RN - 12/06/2012 4:14 PM EST I left a message for Enoc to call back. * Telephone Encounter - Sigrid Sepulveda RN - 12/06/2012 4:13 PM EST Message copied by SIGRID SEPULVEDA on ThuDec 06, 2012 4:13 PM ------ Message from: THEA RODRIGUEZ Created: ThuDec 03, 2012 10:50 PM Hi Mo, Could you please call and let this pt know that I faxed 3 scripts to his pharmacy: 1) vitamin D, 35549 units, weekly, six weeks + six weeks 2) losartan, 50 mg, once a day for his hypertension and hyperuricemia 3) Uloric, 40 mg, daily for his severe hyperuricemia. Thanks Thea documented in this encounter Plan of Treatment Not on file documented as of this encounter Visit Diagnoses Not on filedocumented in this encounter Care Teams Facing Baster Jumpbasting Relationship Specialty Start Date End Date Alek Esparza MD [address] [place] [phone] PCP - General 09/03/10 04/05/23 documented as of this encounter
--- OUTSIDE RECORDS SUMMARY | 2024-08-29 14:16 | XMS_ITS | Encounter Summary ---
Author Organization [facility] Address [facility] [place] [address] Care Team Providers Care Nanotechnologist Name Role Phone Alek Esparza MD Primary Care Provider [phone] Reason for Visit * Reason Comments Joint Pain follow-up Encounter Details Date Type Department Care Team (Late st Contact Info) Description 08/31/2012 1:45 PM EST Follow-Up [place] [phone] Alvaro Cam MD [facility] [place] [address] Tophaceous gout (Primary Dx); Hyperuricemia Discharge Disposition: Home Social History Tobacco Use Types Packs/Day Years Used Date Smoking Tobacco: Never Sex and Gender Information Value Date Recorded Sex Assigned at Not on file Gender Identity Not on file Sexual Orientation Not on file documented as of this encounter Last Filed Vital Signs Vital Sign Reading Time Taken Comments Blood Pressure 131/83 08/31/2012 1:26 PM EST Pulse 95 08/31/2012 1:26 PM EST Temperature 36.7 ??C (98.1 ??F) 08/31/2012 1:26 PM ES T Respiratory Rate 16 08/31/2012 1:26 PM EST Oxygen Saturation 96% 08/31/2012 1:26 PM EST Inhaled Oxygen Concentration - - Weight 108.9 kg (240 lb) 08/31/2012 1:26 PM EST Height 177.8 cm (5' 10) 08/31/2012 1:26 PM EST Body Mass Index 34.44 08/31/2012 1:26 PM EST documented in this encounter Patient Instructions * Patient Instructions* Alvaro Cam MD - 08/31/2012 1:46 PM EST 1) Start allopurinol, 300 mg daily. 2) Continue prednisone, 15 mg daily; then taper to 10 mg before [place]. 3) Return to follow up in three months. documented in this encounter Progress Notes * Alvaro Cam MD - 08/31/2012 1:42 PM EST REASON FOR VISIT: Follow up for tophaceous gout and hyperuricemia. INTERVAL HISTORY: The pt was a 52-year-old male, who returned for a follow up for tophaceous gout. The pt noted that since his initial visit on Aug 04, 2012, he continued to have pain in his neck, arms, shoulders, low back, knees, and then hips. The joint pain was worst in the morning, and tended to get better as the day progressed. He also complained of joint swelling in his hands. He was not scheduled for an appointment with the [facility] for a resection of the right olecranon tophus. Laboratory studies obtained after his initial visit were normal for chemistry, LFT, iron panel, CK, SPEP, ESR, CRP, CBC with differential, TSH, and urinalysis. He was noted to have mild vitamin D deficie ncy with a 25-hydroxyvitamin D level of 21. His serum urate level was significantly elevated with alevel of 10.4. He was seronegative for anti-CCP antibodies, hepatitis panel, and cryoglobulins. He was seropositive for RF with a borderline titer of 15. Radiographic studies of the elbows and hands were largely normal. Otherwise, his review of systems was unchanged, and was negative for fever, chest pain, dyspnea, nausea, dysuria, polydipsia, easy bruising, rash, or headache. PAST MEDICAL HISTORY: Hypertension Tophaceous gout Hyperuricemia Mild vitamin D deficiency Asthma Lafleur's lung Obstructive sleep apnea S/p bilateral carpal tunnel S/p right femur [...] his partner. 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 FAMILY HISTORY: Mother - Unknown, alive at the age of 66. Father - Prostate cancer, alive at the age of 68. PHYSICAL EXAMINATION: Vitals 08/31/2012 SYSTOLIC 131 DIASTOLIC 83 PULSE 95 TEMPERATURE 98.1 RESPIRATIONS 16 HEIGHT 70 in WEIGHT 240 lbs BODY MASS INDEX 34.44 kg/m2 Pulse Oximetry 96 General - Alert, co-operative, no apparent distress, oriented x 3. HEENT - PERRL, EOMI bilaterally, conjunctiva pink, no sclerae icterus or malar rash. Neck - Supple, + Decrease in range of motion on flexion and lateral rotation to both sides due to pain; + posterior cervical spinal tenderness on palpation and range of motion. Heart - + Tachycardic; normal S1 and S2; no murmurs, rubs, or gallops. Lungs - Symmetric, no respiratory distress, clear to auscultation bilaterally. Abdomen - Soft, non-tender, non-distended, bowel sound present, no hepatosplenomegaly. Back - Erect, FROM; no spinal or paraspinal tenderness on palpation. Extremities - Upper extremities: FROM of all joints; + large right olecranon nodule suspicious for a large tophus; + bilateral shoulder joint tenderness at the acromioclavicular joint areas on palpation; + bilateral wrist tenderness on palpation; + bilateral PIP joint tenderness on palpation; + mild synovitis of bilateral PIP joints; no soft tissue swelling or joint effusion; no clubbing, cyanosis, or edema; proximal and distal strength = 5/5 bilaterally. Lower extremities: FROM of all joints; + bilateral hip and knee joint tenderness on palpation; no signs of synovitis or soft tissue swelling; + small bilateral knee joint effusion; no clubbing, cyanosis, or edema; proximal and distal muscle strength = 5/5 bilaterally, 2+ peripheral pulses bilaterally. Skin - Smooth and intact, no rash, telangiectasia on skin or at all nail margins, sclerodactyly, oral ulcers, or bruises. Neuro - No sensory or motor function deficit, DTR = + 2/4 bilaterally. PROCEDURE: A verbal consent was obtained from the pt for the aspiration of his right olecranon bursa. The risks and benefits of the procedure were explained to the pt prior to the procedure. The pt's identity was confirmed with his name and date of . The pt was prepped in a sterile manner. A 22-gauge needle was inserted into the right olecranon bursa. A few drops of the cloudy aspirate was obtained. The site of the needle insertion was covered with a sterile dressing at the end of the procedure. There were no complications associated with the procedure. The aspirate was viewed under a compensated polarized light microscope. Birefringent crystals consistent with monosodium urate were seen under the microscope. 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 The pt will use prednisone for his chronic tophaceous gout. I had a lengthy discussion with the pt regarding treatment options for his tophaceous gout, which includes medical treatment with allopurinol and surgical removal of the tophus. He will start medical treatment and await a surgical consult. 2) Marked hyperuricemia. The pt will need life-long allopurinol treatment for his tophaceous gout. 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 There is no clinical significance for his positive RF, and no further workup is warranted. 4) Mild vitamin D deficiency. The pt will use [id number] vitamin D supplement for now. RECOMMENDATIONS: 1) Start allopurinol, 300 mg daily. 2) Continue prednisone, 15 mg daily; then taper to 10 mg before [place]. 3) Return to follow up in three months. Alvaro Cam MD, PhD documented in this encounter Plan of Treatment Not on file documented as of this encounter Visit Diagnoses Diagnosis Tophaceous gout- Primary Chronic gouty arthropathy with tophus (tophi) Hyperuricemia Other abnormal blood chemistry documented in this encounter Care Teams Nanotechnologist Relationship Specialty Start Date End Date Alek Esparza MD [address] [place] [phone] PCP - General 09/03/10 04/05/23 documented as of this encounter
--- OUTSIDE RECORDS SUMMARY | 2024-08-29 14:16 | XMS_ITS | Encounter Summary ---
Author Organization [facility] Address [facility] [place] [address] Care Team Providers Care Trim Setter Name Role Phone Luisa Juares MD Primary Care Provider [phone] Reason for Visit * Reason Comments Left Hand Pain Left small finger FX Encounter Details Date Type Department Care Team (Late st Contact Info) Description 02/07/2013 8:20 AM EDT Office [place] [address] Rohan Duarte MD [facility] [place] [address] Fracture of left small finger, proximal, closed [...] Sign Reading Time Taken Comments Blood Pressure 144/93 02/07/2013 8:42 AM EDT Pulse 87 02/07/2013 8:42 AM EDT Temperature - - Respiratory Rate - - Oxygen Saturation - - Inhaled Oxygen Concentration - - Weight - - Height - - Body Mass Index - - documented in this encounter Progress Notes * Audra Delacruz RN - 02/07/2013 9:58 AM EDT Pro op teaching for general hand surgery Left small finger fracture, . Emphasis placed on post op hand elevation with hand above heart,fingers above palm,palm above wrist and wrist above elbow. This was demonstrated. Stressed no lifting of operative hand. Reviewed suggestions for taking post op pain medication. Questions solicited and answered to patient satisfaction. Written material provided. Patient knows to call with any additional questions or concerns. * Rohan Duarte MD - 02/07/2013 9:42 AM EDT I saw Enoc Esteban in conjunction with CARMELINA Chua. He has an injury to his left small finger that occurred while working outdoors about nine days ago. An x-ray was performed several days ago and he was found to have a proximal phalanx fracture of the small finger with significant displacement and angulation. He wishes to have this treated. His clinical examination shows his left small finger to be sensate and well perfused. There is obvious malalignment with an extension deficit at the PIP joint and obvious angular fracture deformity of the base of the proximal phalanx. His x-rays do show a diaphyseal fracture of the proximal one-third of his small finger proximal phalanx with likely nondisplaced intraarticular extension into the proximal epiphyseal fragment. There is no step-off across the joint. There is about 60 degrees apex palmar angulation. I have recommended surgical reduction and stabilization of this fracture. This will likely be done as closed reduction and pinning, although an ORIF may be needed. He is aware that surgical risks include but are not limited to infection, finger stiffness, malunion, nonunion, hardware failure, and potential neurovascular injury. He wishes to proceed. We will schedule this to be done hopefully tomorrow. 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 He was loading logs onto his log splitter when he lost control of the log, causing it to crush his small finger between the log and the log splitter. He did not seek treatment as he did not see a significant deformity. He continued to have pain and he was seeing Dr. 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 Cam recommended x-rays and he was found to have an apex palmar fracture of the proximal phalanx of the left small finger. He has pain, but no significant numbness. He has been using the hand without splinting since his injury. He does have discomfort that does tend to radiate into his arm and is somewhat bothersome. His primary care provider is Dr. Juares. 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 Joao Perdue. His pain causes him to be quite cautious with his hand, but does not prevent any activities. He would like to have something done with that and he fully expects it to need surgery. He would like to proceed if that is the route that is decided upon. CC: [place], [place] [id number] Cam M.D. [facility] [place] Luisa Juares M.D. Family Medicine [address] [place] [phone] Cam PCP: LUISA JUARES MD Current Outpatient Prescriptions on File Prior to Visit Medication Sig Dispense Refill ??? febuxostat (ULORIC) 40 mg tablet Take 1 tablet by mouth daily. 60 tablet 4 ??? losartan (COZAAR) 50 mg tablet Take 1 tablet by mouth daily. 60 tablet 3 ??? ergocalciferol (ERGOCALCIFEROL) 50,000 unit capsule Take 1 capsule by mouth once a week. 6 capsule 1 ??? LORazepam (ATIVAN) 1 mg tablet Take 15 mg by mouth daily as needed. ??? predniSONE (DELTASONE) 5 mg tablet Take 2 tablets by mouth daily. 120 tablet 2 ??? hydroCODone-acetaminophen (NORCO) 10-325 mg per tablet Take 1 tablet by mouth 2 times daily as needed. ??? zolpidem (AMBIEN) 10 mg tablet Take 10 mg by mouth nightly as needed. ??? ibuprofen (MOTRIN) 800 mg tablet ??? albuterol-ipratropium (COMBIVENT) 18-103 mcg/Actuation inhaler No Known Allergies Patient Active Problem List Diagnoses Code ??? HTN (hypertension) 401.9 ??? Tophaceous gout 274.03 ??? Hyperuricemia 790.6 ??? Mild vitamin D deficiency 268.9 ??? Asthma 493.90 ??? TYRON (obstructive sleep apnea) 327.23 ??? Fracture of left small finger, proximal, closed 816.01 No past surgical history on file. - relates hx of c4-5-6 surgery, foot surgery, knee surgery, and bilateral carpal tunnel release in the past. History Social History ??? Marital Status: Single Spouse Name: N/A Number of Children: N/A ??? Years of Education: N/A Occupational History ??? Not on file. Social History Main Topics ??? Smoking status: Never Smoker ??? Smokeless tobacco: Not on file ??? Alcohol Use: Yes ??? Drug Use: Yes Special: Marijuana ??? Sexually Active: Not on file Other Topics Concern ??? Not on file Social History Narrative ??? No narrative on file Non-smoker, occasional beer, regular golfer. This problem does not prevent ADL's (Dressing, Eating, Ambulating, Toileting and Hygiene) or IADL's(Shopping, Housekeeping, Accounting, Food preparation and Transportation) He is a HS graduate No family history on file. - verbalizes hx of arthritis and HTN Denies fever, chills, nausea, vomiting, vision change, shortness of breath, chest pain, vision changes, headaches, bowel or bladder problem, ear, nose, sinus problem, neuro or psychiatric, or endocrine disorder. Awake, alert, oriented to person, place, time, NAD, afebrile, hemodynamically stable. Comfortable in the exam room. Affect/demeanor appropriate HEENT - normocephalic, atraumatic, sclera clear, nose patent and throat clear. c-spine with good and full ROM CVS exam: normal rate, regular rhythm, normal S1, S2, no murmurs, rubs, clicks or gallops Lungs clear to ausculation, no rhonchi, rale or wheeze noted. Cranial nerves grossly intact as below II - Optic nerve - vision grossly normal III, IV, - Oculomotor nerve/Trochlear nerve/Abducens nerve - eyes move and accomodate, PERRLA V - Trigeminal nerve - face is sensate VII - Facial nerve - smiles/frowns, raises eyebrows, puffs cheeks VIII - Vestibulocochlear nerve/Auditory nerve - hears, well balanced IX, X - Glossopharyngeal nerve, Vagus nerve - phonates KA and GO XI - Accessory nerve/Spinal accessory nerve - shrugs shoulders, turns head XII -hypoglossal- tongue midline and normal His bilateral hands are warm and dry without overlying erythema, edema, ecchymosis, bogginess, fluctuance, drainage, or break in the skin. His sensation he describes is intact. He does have some atrophy to the first webspace and that he tells me is related to his C-spine issues. He has had surgery for that in the past and was told that he would have permanent nerve damage. Otherwise, he is able to demonstrate integrity of the FDS, FDP, EPL, and FPL. He is unable to bring his fingers into his palm. He does not have any obvious malrotation, but it is difficult to assess in light of the fact that he has significant stiffness and discomfort with range of motion. Imaging studies show an apex palmar severely angulated fracture, the proximal aspect of the left fifth proximal phalanx. We went over these x-rays in the exam room and discussed treatment options. 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 We discussed surgery to include closed reduction and percutaneous pinning versus open reduction and internal fixation. He understands the nature of his injury and is willing to do this in the near future. He will meet with Dr. Duarte. Please see that note as well as Dr. Duarte's separate note. Consent was signed, H&P completed, Pt agrees, questions solicited/answered, will return as scheduled and as needed for concerns or questions. Pt understands they may also call us prn for above. Greater than 50% of this 40 minute appt was face to face counseling regarding injury, treatment, options, and recovery. documented in this encounter Plan of Treatment Not on file documented as of this encounter Procedures Procedure Name Priority Date/Time Associated Diagnosis Comments CLOSED TREATMENT FX PHALANX OR PHALANGES Routine 02/07/2013 9:48 AM EDT documented in this encounter Visit Diagnoses Diagnosis Fracture of left small finger, proximal, closed- Primary Closed fracture of middle or proximal phalanx or phalanges of hand documented in this encounter Care Teams Trim Setter Relationship Specialty Start Date End Date Luisa Juares MD [address] [place] [phone] PCP - General 09/03/10 04/05/23 documented as of this encounter
--- OUTSIDE RECORDS SUMMARY | 2024-08-29 14:16 | XMS_ITS | Encounter Summary ---
Author Organization [facility] Address [facility] [place] [address] Care Team Providers Care Roof Panel Hanger Name Role Phone Alek Esparza MD Primary Care Provider [phone] Reason for Visit * Reason Comments Gout Encounter Details Date Type Department Care Team (Late st Contact Info) Description 04/11/2013 2:45 PM EDT Follow-[place] [phone] Alvaro Cam MD [facility] [address] [place] [address] Tophaceous gout (Primary Dx); Hyperuricemia; CRP elevated Discharge Disposition: Home Social History Tobacco Use [...] Sign Reading Time Taken Comments Blood Pressure 134/90 04/11/2013 2:45 PM EDT Pulse 66 04/11/2013 2:45 PM EDT Temperature 36.9 ??C (98.5 ??F) 04/11/2013 2:45 PM ED T Respiratory Rate - - Oxygen Saturation 97% 04/11/2013 2:45 PM EDT Inhaled Oxygen Concentration - - Weight 114.8 kg (253 lb) 04/11/2013 2:45 PM EDT Height 177.8 cm (5' 10) 04/11/2013 2:45 PM EDT Body Mass Index 36.3 04/11/2013 2:45 PM EDT documented in this encounter Patient Instructions * Patient Instructions* Alvaro Cam MD - 04/11/2013 2:53 PM EDT 1) Taper daily prednisone to 5 mg. 2) Continue daily losartan, 50 mg. 3) Continue daily Uloric, 80 mg. 4) Check labs today. 5) Return to follow up in three months. documented in this encounter Progress Notes * Alvaro Cam MD - 04/11/2013 2:47 PM EDT REASON FOR VISIT: Follow up for tophaceous gout and hyperuricemia. INTERVAL HISTORY: The pt was a 53-year-old male, who returned for a follow up of tophaceous gout and hyperuricemia. The pt noted that since his last visit on March 15, 2013, he had increased daily febuxostat dose to 80 mg in conjunction with daily prednisone, 10 mg for his tophaceous gout and hyperuricemia. He continued to be on losartan for his hypertension and hyperuricemia. His joint pain and swelling remained remitted since he increased his febuxostat dose to 80 mg. He tolerated febuxostat and losartan well without any fever, chest pain, shortness of breath, nausea, dysuria, headache, polydipsia, rash, or blood clots. Laboratory studies obtained after his last visit were normal for chemistry, LFT, ESR, TSH, 25-hydroxyvitamin D, and urinalysis. His CRP was mildly elevated with a level of 10.3. He was seronegative for RF and anti-CCP antibodies. Radiographic studies of the feet showed marked right 1st MTP joint calcifications and milder degree of left foot 1st MTP calcifications, most consistent with gout; no sign of joint space involvement. PAST MEDICAL HISTORY: Hypertension Tophaceous gout Hyperuricemia [...] living with his partner. 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 FAMILY HISTORY: Mother - Unknown, alive at the age of 66. Father - Prostate cancer, alive at the age of 68. PHYSICAL EXAMINATION: Vitals 04/11/2013 SYSTOLIC 134 DIASTOLIC 90 PULSE 66 TEMPERATURE 98.5 Height (Welsh) 5' 10 Height (Metric) 177.8 cm Weight (Welsh) 253 lbs Weight (Metric) 114.76 kg BODY MASS INDEX 36.3 kg/m2 Pulse Oximetry 97 General - Alert, co-operative, no apparent distress, oriented x 3. HEENT - Conjunctiva pink, no sclerae icterus or malar rash. Extremities - Upper extremities: FROM of all joints; + large right olecranon tophus nodule. Lower extremities: FROM of all joints; no joint tenderness on palpation; no signs of synovitis, soft tissue swelling, or joint effusion; no clubbing, cyanosis, or edema. Skin - Smooth and intact, no rash, telangiectasia on skin or at all nail margins, or sclerodactyly. Neuro - No sensory or motor function deficit. IMPRESSION: 1) Tophaceous gout and 2) marked hyperuricemia in a 53-year-old male. Because of his tophaceous gout and marked hyperuricemia, the pt is a candidate for life-long therapy with a uricosuric agent. The pt did not tolerate allopurinol due to rash, he tolerated febuxostat well without any side effects. The goal of serum uric acid level for this pt is 5.0. He will start tapering prednisone as tolerated. 3) Hypertension. The pt's blood pressure has improved since he was put on losartan, which is also auricosuric agent. He will continue losartan. 4) Elevated CRP. The pt's elevated CRP is likely a result of poorly controlled tophaceous gout. He will undergo repeat laboratory studies at the next visit. RECOMMENDATIONS: 1) Taper daily prednisone to 5 mg. 2) Continue daily losartan, 50 mg. 3) Continue daily Uloric, 80 mg. 4) Check labs today. 5) Return to follow up in three months. Alvaro Cam MD, PhD documented in this encounter Plan of Treatment Not on file documented as of this encounter Visit Diagnoses Diagnosis Tophaceous gout- Primary Chronic gouty arthropathy with tophus (tophi) Hyperuricemia Other abnormal blood chemistry CRP elevated Elevated C-reactive protein (CRP) documented in this encounter Care Teams Roof Panel Hanger Relationship Specialty Start Date End Date Alek Esparza MD [address] [place] [phone] PCP - General 09/03/10 04/05/23 documented as of this encounter
--- OUTSIDE RECORDS SUMMARY | 2024-08-29 14:16 | XMS_ITS | Encounter Summary ---
Author Organization [facility] Address [facility] [place] [address] Care Team Providers Care Arc Welder Name Role Phone Alek Esparza MD Primary Care Provider [phone] Encounter Details Date Type Department Care Team (Late st Contact Info) Description 02/04/2013 Orders [place] [address] Rohan Duarte MD [facility] [place] [address] Hand pain (Primary Dx) Social History Tobacco Use Types Packs/Day Years Used Date Smoking Tobacco: Never Sex and Gender Information Value Date Recorded Sex Assigned at Not on file Gender Identity Not on file Sexual Orientation Not on file documented as of this encounter Plan of Treatment Not on file documented as of this encounter Results * XR hand diagnostic minimum 3 views (02/07/2013 8:21 AM EDT) Anatomical Region Laterality Modality Hand N/A Radiographic Caro ging 02/07/2013 8:21 AM EDT Narrative 02/07/2013 10:41 AM EDT Examination DIAG HAND MIN 3 VIEWS/LEFT Clinical History LEFT HAND FX EVAL ? CHANGE IN ALIGNMENT; SIMONE Comparison Is made with the study of [...] HAND FX EVAL ? CHANGE IN ALIGNMENT; SIMONE Comparison Is made with the study of [...] documented in this encounter Visit Diagnoses Diagnosis Hand pain- Primary Pain in limb Pain in limb Hand pain Pain in limb documented in this encounter Care Teams Arc Welder Relationship Specialty Start Date End Date Alek Esparza MD [address] [place] [phone] PCP - General 09/03/10 04/05/23 documented as of this encounter
--- OUTSIDE RECORDS SUMMARY | 2024-08-29 14:16 | XMS_ITS | Encounter Summary ---
Author Organization [facility] Address [facility] [place] [address] Care Team Providers Care Veterinary Technologist Name Role Phone Alek Esparza MD Primary Care Provider [phone] Reason for Visit * Reason Onset Date Comments Medication Refill 03/22/2013 Encounter Details Date Type Department Care Team (Late st Contact Info) Description 03/22/2013 [place]ill [place] [address] Alvaro Cam MD [facility] [place] [address] Social History Tobacco Use Types Packs/Day Years [...] on filedocumented in this encounter Care Teams Veterinary Technologist Relationship Specialty Start Date End Date Alek Esparza MD [address] [place] [address] PCP - General 09/03/10 04/05/23 documented as of this encounter
--- OUTSIDE RECORDS SUMMARY | 2024-08-29 14:16 | XMS_ITS | Encounter Summary ---
Author Organization [facility] [place] [address] Care Team Providers Care Real Estate Broker Associate Name Role Phone Alek Esparza MD Primary Care Provider [phone] Reason for Referral * Surgical (Urgent) - Closed Specialty Diagnoses / Procedures Referred By Contac t Referred To Contact Orthopaedics Diagnoses Fracture FINGER FX Procedures NONE [facility] [address] [address] [place] [address] [facility] Orthopaedics [address] [place] [address] Referral ID Status Reason Start Date Expiration Date V isits Requested Visits Authorized [id number] Closed Consult, Test & Treat 02/03/2013 08/02/2013 1 1 Reason for Visit * Reason Onset Date Comments Other 02/03/2013 Xray Encounter Details Date Type Department Care Team (Late st Contact Info) Description 02/03/2013 Telephone [place] [address] Marcial Lake RN Other (Xray) Social History Tobacco Use Types Packs/Day Years Used Date Smoking Tobacco: Never Sex and Gender Information Value Date Recorded Sex Assigned at Not on file Gender Identity Not on file Sexual Orientation Not on file documented as of this encounter Miscellaneous Notes * Telephone Encounter - Marcial Lake RN - 02/03/2013 2:28 PM EDT Peter calls and wants to know what Dr. Cam called him for. I spoke with Dr. Cam and he wants Enoc to see an Orthopedic Surgeon for a displaced fracture of the Left small finger. I called Enoc back and he does agree to see a surgeon. Referral will be sent today. documented in this encounter Plan of Treatment Scheduled Referrals Name Type Priority Associated Diagnoses Order Schedule Referral to Orthopaedics Outpatient Referral Routine Fracture Ordered: 02/03/2013 documented as of this encounter Visit Diagnoses Diagnosis Fracture- Primary Closed fracture of unspecified bone documented in this encounter Care Teams Real Estate Broker Associate Relationship Specialty Start Date End Date Alek Esparza MD [address] [place] [phone] PCP - General 09/03/10 04/05/23 documented as of this encounter
--- OUTSIDE RECORDS SUMMARY | 2024-08-29 14:16 | XMS_ITS | Encounter Summary ---
Author Organization [facility] Address [facility] [place] [address] Care Team Providers Care Mathematical Engineer Name Role Phone Alek Esparza MD Primary Care Provider [phone] Encounter Details Date Type Department Care Team (Late st Contact Info) Description 02/17/2013 Orders [place] [address] Rohan Duarte MD [facility] [place] [address] Social History Tobacco Use Types Packs/Day Years [...] on filedocumented in this encounter Care Teams Mathematical Engineer Relationship Specialty Start Date End Date Alek Esparza MD [address] [place] [phone] PCP - General 09/03/10 04/05/23 documented as of this encounter
--- OUTSIDE RECORDS SUMMARY | 2024-08-29 14:16 | XMS_ITS | Encounter Summary ---
Author Organization [facility] Address [facility] [place] [address] Care Team Providers Care Literacy Coordinator Name Role Phone Alek Esparza MD Primary Care Provider [phone] Reason for Referral * Occupational Therapy (Routine) - Complete - Patient Will Schedule External Appt Specialty Diagnoses / Procedures Referred By Contac t Referred To Contact Occupational Therapy Diagnoses Fracture of finger, proximal, closed Rohan Duarte MD [facility] [place] [address] [facility] [place] [address] Referral ID Status Reason Start Date Expiration Date Visits Requested Visits Authorized [id number] Complete - Patient Will Schedule External Appt Evaluate and Treat 03/09/2013 09/05/2013 1 1 Reason for Visit * Reason Comments Left Hand Fracture left small finger fx crpp dos: 02/08/13 Encounter Details Date Type Department Care Team (Late st Contact Info) Description 03/09/2013 10:00 AM EDT Office [place] [address] Rohan Duarte MD [facility] [place] [address] Fracture of left small finger, [...] Sign Reading Time Taken Comments Blood Pressure 130/84 03/09/2013 10:16 AM EDT Pulse 91 03/09/2013 10:16 AM EDT Temperature - - Respiratory Rate - - Oxygen Saturation - - Inhaled Oxygen Concentration - - Weight 111.1 kg (245 lb) 03/09/2013 10:16 AM EDT Height 177.8 cm (5' 10) 03/09/2013 10:16 AM EDT Body Mass Index 35.15 03/09/2013 10:16 AM EDT documented in this encounter Progress Notes * Rohan Duarte MD - 03/09/2013 11:01 AM EDT Enoc Esteban is approximately four weeks following closed reduction and percutaneous pinning of a left small finger proximal phalanx diaphyseal fracture. He returns now for routine followup. He reports that he has been working with the splint in place. He has not had any particular problems. His small finger clinically is well aligned. He has no obvious vascular deficits, but he is somewhat numb in all the digits of his left hand. His pin sites are clean. X-rays were reviewed today and these do show that his proximal phalanx fracture is well aligned, but the fracture line is still very visible. Today, his pins were removed. He is being referred to hand therapy for modification of his splint and active range of motion exercises. He may begin to get his hand well as earliest Thursday. I will see him back in two weeks with new x-rays to assess his healing. documented in this encounter Plan of Treatment Scheduled Referrals Name Type Priority Associated Diagnoses Order Schedule Referral to Occupational Therapy Outpatient Referral Routine Fracture of left small finger, proximal, closed Ordered: 03/09/2013 documented as of this encounter Results * XR finger minimum 2 views (03/23/2013 2:13 PM EDT) Anatomical Region Laterality Modality Hand N/A Radiographic Caro ging 03/23/2013 2:13 PM EDT Narrative 03/23/2013 4:40 PM EDT Examination FINGER MIN 2 VIEWS/LEFT Clinical History proximal phalanx fracture left small finger, assess healing Comparison March 09, 2013. Technique PA view of the left hand. ??2 views of the left 5th finger. Findings Interval removal of the percutaneous wires. ??Fracture lines at the proximal phalanx of the 5th digit are still seen. ??Increased formation of bridging callus. Impression Incomplete healing of 5th proximal phalanx fracture. ??Alignment remains anatomic. Procedure Note Juana Shepherd MD - 03/23/2013 Examination FINGER MIN 2 VIEWS/LEFT Clinical History proximal phalanx fracture left small finger, assess healing Comparison March 09, 2013. Technique PA view of the left hand. 2 views of the left 5th finger. Findings Interval removal of the percutaneous wires. Fracture lines at theproximal phalanx of the 5th digit are still seen. Increased formation of bridging callus. Impression Incomplete healing of 5th proximal phalanx fracture. Alignment remainsanatomic. Rohan Duarte MD IMG DX ORDERABLES documented in this encounter Visit Diagnoses Diagnosis Fracture of left small finger, proximal, closed- Primary Closed fracture of middle or proximal phalanx or phalanges of hand Fracture of left small finger, proximal, closed Closed fracture of middle or proximal phalanx or phalanges of hand documented in this encounter Care Teams Literacy Coordinator Relationship Specialty Start Date End Date Alek Esparza MD [address] [place] [phone] PCP - General 09/03/10 04/05/23 documented as of this encounter
--- OUTSIDE RECORDS SUMMARY | 2024-08-29 14:16 | XMS_ITS | Encounter Summary ---
Author Organization [facility] Address [facility] [place] [address] Care Team Providers Care Brick Tosser Name Role Phone Alek Esparza MD Primary Care Provider [phone] Reason for Visit * Reason Comments Gout Encounter Details Date Type Department Care Team (Late st Contact Info) Description 02/02/2013 3:15 PM EDT [place] [phone] Alvaro Cam MD [facility] [place] [address] Gout (Primary Dx); Hyperuricemia; Vitamin d deficiency; Traumatic arthropathy of left hand Discharge Disposition: Home Social History Tobacco Use Types Packs/Day Years Used Date Smoking Tobacco: Never Sex and Gender Information Value Date Recorded Sex Assigned at Not on file Gender Identity Not on file Sexual Orientation Not on file documented as of this encounter Last Filed Vital Signs Vital Sign Reading Time Taken Comments Blood Pressure 132/78 02/02/2013 3:38 PM EDT Pulse 92 02/02/2013 3:38 PM EDT Temperature 37 ??C (98.6 ??F) 02/02/2013 3:38 PM EDT Respiratory Rate - - Oxygen Saturation 97% 02/02/2013 3:38 PM EDT Inhaled Oxygen Concentration - - Weight 112 kg (247 lb) 02/02/2013 3:38 PM EDT Height 177.8 cm (5' 10) 02/02/2013 3:38 PM EDT Body Mass Index 35.44 02/02/2013 3:38 PM EDT documented in this encounter Patient Instructions * Patient Instructions* Rufina Tejada, SALES AGENT [employer]ING [employer] - 02/02/2013 3:41 PM EDT Welcome to [employer], your secure online access to your electronic medical record at [facility]. Using [employer] you will be able to send messages to your providers, view your test results, renew prescriptions, schedule appointments, and much more. Follow these instructions to enter your personal [employer] account for the first time: 1. Start your internet browser and type [email or web address] into the address bar. 2. In the New User box on the right-hand side of the Welcome page click the link that states, ???I have an activation code.?? 3. On the Identification page, follow these steps: a) Enter your [employer] activation code: [email or web address] b) Expires: 03/19/2013 3:41 PM IMPORTANT: This Activation Code will on the above mentioned date. If you do not sign up for [employer] by this date, you will need to request another activation code. c) Enter your date of , using the calendar tool provided. d) Enter your Zip code. e) Select ???submit?? to go to the next page. 4. On the Create Account page, follow these steps: a) Create a [employer] username. This can???t be changed, so choose one you won???t forget. b) Create a password that???s at least six characters long, and that contains at least two numbers.Your password can be changed at any time. Confirm your password by entering it once more. c) Enter your email address. This will be used to alert you to new information. Confirm your email address by entering it once more. d) Enter your security question. This will be used if you forget your password. e) Enter your security answer. Confirm your security answer by entering it once more. f) Select ???submit?? to view your electronic medical record. If you have any questions about [employer] or your Access Code, please call for [place], for [place] or for [place]. If you need technical support, please e-mail [email or web address]. Remember, [employer] is NOT for urgent needs! Always dial 911 for medical emergencies. 1) Taper daily prednisone dose to 5 mg. 3) Continue daily losartan, 50 mg. 4) Continue daily Uloric, 40 mg. 5) Check labs today. 6) Get X-ray of the hands today. 7) Return to follow up in three months. documented in this encounter Progress Notes * Alvaro Cam MD - 02/02/2013 3:39 PM EDT REASON FOR VISIT: Follow up for tophaceous gout and hyperuricemia. INTERVAL HISTORY: The pt was a 53-year-old male, who returned for a follow up of tophaceous gout and hyperuricemia. The pt noted that since his last visit on Dec 01, 2012, he continued to be on daily febuxostat, 40 mg and daily prednisone, 10 mg for his hyperuricemia and tophaceous gout. He was also on daily losartan for blood pressure control and hyperuricemia. Since he started febuxostat, prednisone, and losartan, he had no recurrent gouty attacks. He tolerated febuxostat and losartan well without any fever, chest pain, shortness of breath, nausea, dysuria, headache, polydipsia, rash, or blood clots. He did hit his left hand on a piece of wood last week, resulting in persistent pain and swelling in his left 4th and 5th fingers. He did not seek medical attention after he hit his hand. He finished a twelve-week course of weekly high dose vitamin D supplement for his vitamin D deficiency. PAST MEDICAL HISTORY: Hypertension Tophaceous gout Hyperuricemia [...] his partner. 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 FAMILY HISTORY: Mother - Unknown, alive at the age of 66. Father - Prostate cancer, alive at the age of 68. PHYSICAL EXAMINATION: Vitals 02/02/2013 BP 132/78 Pulse 92 Temp 98.6 Temp src Oral Height to cm. 177.8 cm Height in inches 5' 10 Weight (Tanzanian) 247 lbs Weight (Metric) 112 kg BMI (Calculated) 35.5 BSA (Calculated - sq m) 2.35 SpO2 97 General - Alert, co-operative, no apparent distress, oriented x 3. HEENT - PERRL, EOMI bilaterally, conjunctiva pink, no sclerae icterus or malar rash. Neck - Supple, + Decrease in range of motion on flexion and lateral rotation to both sides due to pain; + posterior cervical spinal tenderness on palpation and range of motion. Heart - Regular rate and rhythm; normal S1 and S2; no murmurs, rubs, or gallops. Lungs - Symmetric, no respiratory distress, clear to auscultation bilaterally. Abdomen - Soft, non-tender, non-distended, bowel sound present. Back - Erect, FROM; no spinal or paraspinal tenderness on palpation. Extremities - Upper extremities: FROM of all joints; + large right olecranon tophus nodule; + left 4th and 5th proximal phalanx tenderness on light touch; + soft tissue swelling of left 4th and 5th proximal phalanx with moderate erythema; no signs of synovitis or joint effusion; no clubbing, cyanosis, or edema. Skin - Smooth and intact, + bruises of left 4th and 5th proximal phalanx; no rash, telangiectasia on skin or at [...] goal of serum uric acid level for his is 5.0. He will undergo repeat laboratory studies today. 3) Left hand trauma. The pt will undergo radiographic studies of the left hand to evaluate for fracture of the left 4th and 5th fingers. 4) Moderate vitamin D deficiency. The pt will undergo repeat laboratory studies today. 5) Hypertension. The pt's blood pressure is under good control with losartan, which is uricosuric agent. He will continue losartan. RECOMMENDATIONS: 1) Taper daily prednisone dose to 5 mg. 3) Continue daily losartan, 50 mg. 4) Continue daily Uloric, 40 mg. 5) Check labs today. 6) Get X-ray of the hands today. 7) Return to follow up in three months. Alvaro Cam MD, PhD documented in this encounter Plan of Treatment Not on file documented as of this encounter Procedures Procedure Name Priority Date/Time Associated Diagnosis Comments DIFFERENTIAL, AUTOMATED Routine 02/02/2013 3:57 PM EDT VITAMIN D, 25-HYDROXY Routine 02/02/2013 3:57 PM EDT Vitamin d deficiency SEDIMENTATION RATE Routine 02/02/2013 3: 57 PM EDT Gout Hyperuricemia CBC (WITH DIFF) Routine 02/02/2013 3:57 PM EDT Gout Hyperuricemia CRP, CARDIAC RISK (HS CRP) Routine 02/02/2013 3:57 PM EDT Gout Hyperuricemia URIC ACID Routine 02/02/2013 3:57 PM EDT Gout Hyperuricemia HEPATIC FUNCTION PANEL Routine 3 3:57 PM EDT Gout Hyperuricemia BASIC METABOLIC PANEL Routine 02/02/2013 3:57 PM EDT Gout Hyperuricemia documented in this encounter Results * XR [...] on02/03/13 at 9:30 am. Alvaro Cam MD IM DX ORDERABLES * (ABNORMAL) Differential, Automated (02/02/2013 3:57 PM EDT) Neutrophil % 66.1 34.0 - 71.0 % CERNER MILLENNIUM Neutrophil Absolute 6.99(H) 1.50 - 6.30 x10(3)/mc L CERNER MILLENNIUM Lymph % 26.8 19.0 - 53.0 % CERNER MILLENNIUM Lymphocytes Abs 2.8 1.0 - 3.6 x10(3)/mc L CERNER MILLENNIUM Monocyte % 6.1 4.0 - 13.0 % CERNER MILLENNIUM Monocyte Abs 0.6 0.2 - 1.0 x10(3)/mc L CERNER MILLENNIUM Eos % 0.2 0.0 - 7.0 % CERNER MILLENNIUM Eosinophils Abs 0.0 0.0 - 0.5 x10(3)/mc L CERNER MILLENNIUM Basophil % 0.6 0.0 - 2.0 % CERNER MILLENNIUM Baso Absolute 0.1 0.0 - 0.2 x10(3)/mc L CERNER MILLENNIUM Immature Gran % 0.20 0.00 - 0.66 % CERNER MILLENNIUM Comment: Immature granulocytes(IG's)percentage and absolute count will include metamyelocytes, myelocytes, and promyelocytes. Blood smears from CBCs yielding IG's will be scanned manually for concordance. If this scan disagrees with the automated IG or if promyelocytes are noted, a manual differential will be performed. Immature Gran Absolute 0.02 0.00 - 0.05 x10(3)/mc L [facility] Blood specimen (specimen) 02/02/2013 3:57 PM EDT 02/02/2013 4:02 PM EDT Alvaro Cam MD HEMATOLOGY ORDERABLE S GHAZALA ELAM * Uric acid (02/02/2013 3:57 PM EDT) Uric Acid 4.9 3.5 - 8.5 mg/dL G[facility]ZALA DUNHAMIUM Blood specimen (specimen) 02/02/2013 3:57 PM EDT 02/02/2013 4:02 PM EDT Narrative Resulting Agency Comment Spec In Lab Alvaro Cam MD CHEMISTRY ORDERABLES Performing Organization Address [facility] Co de Phone Number GHAZALA ELAM * High Sensitivity CRP (02/02/2013 3:57 PM EDT) C-Reactive Protein High Sensitivity 0.7 mg/L [facility] Comment: Interpretations: 1) For cardiac risk assessment, two values (fasting or nonfasting sample acceptable) taken at least 2 weeks apart, should be averaged to provide a more reliable estimate of marker level. ??This laboratory uses the recommendations from the AHA/CDC Scientific Statement for interpretations of future risks of cardiovascular events: ? <1.0 mg/L: low risk 1.0 - 3.0 mg/L: moderate risk >3.0 mg/L: high risk groups for future cardiovascular events 2) The general reference range of apparently healthy individuals using this test is <5.0 mg/L (derived from the test package insert) A few words of caution: For cardiac assessment, when a value >10 mg/L is encountered, there should be a search for an acute inflammatory condition or infection (in patients with acute inflammation, the concentration can increase to >500 mg/L). ??The >10 mg/L should be discarded if such a situation exists, since the risk for coronary heart disease cannot be provided, and a repeat specimen, taken at least two weeks after resolution of the acute inflammatory condition, may allow for appraisal of coronary risk information. Please note that significantly decreased CRP values may be obtained from samples taken from patients who have been treated with carboxypenicillins. References: 1. Lynn HILL et. al. ??AHA/CDC Scientific Statement: Markers of Inflammation and Cardiovascular Disease. ??Circulation 2003; 107:499-511 2. Reynold PM. ??Clinical applications of C-reactive protein for cardiovascular disease detection and prevention. ??Circulation 2003; 107:363-369 Blood specimen (specimen) 02/02/2013 3:57 PM EDT 02/02/2013 4:02 PM EDT Narrative Resulting Agency Comment Spec In Lab Alvaro Cam MD CHEMISTRY ORDERABLES Performing Organization Address [facility]/ZIP Co de Phone Number [facility] * VIT D Total Evaluation (02/02/2013 3:57 PM EDT) Vitamin D Total 25 OH 42 30 - 100 ng/mL CERNER MILLENNIUM Comment: Deficient <10 ng/mL Insufficient 10 to 29 ng/mL Sufficient 30 to 100 ng/mL Potential Intoxication >100 ng/mL According to the US National Osteoporosis Foundation, Vitamin D concentrations >30 ng/mL are sufficient to protect bone health. ??The National Kidney Foundation has similarly stated that patients with Vitamin D concentrations <30ng/mL should be considered to be insufficient or deficient. http://www.kidney.org/professionals/KDOQI/guidelines_bone/Guide7.htm http://www.nof.org/professionals/clinical-guidelines The IDS iSYS Vitamin D Immunoassay detects both 25-OH Vitamin D2 and 25-OH Vitamin D3, but only a total Vitamin D concentration is reported. Blood specimen (specimen) 02/02/2013 3:57 PM EDT 02/02/2013 4:02 PM EDT Narrative Resulting Agency Comment Spec In Lab Alvaro Cam MD CHEMISTRY ORDERABLES [facility] * (ABNORMAL) CBC (with Diff) (02/02/2013 3:57 PM EDT) White Blood Cell 10.6(H) 4.0 - 10.0 x10(3)/mc L CERNER MILLENNIUM Red Blood Cell 4.64 4.63 - 6.08 x10(6)/mc L CERNER MILLENNIUM Hemoglobin 15.6 13.7 - 17.5 gm/dL CERNER MILLENNIUM Hematocrit 46.5 40.0 - 51.0 % CERNER MILLENNIUM Mean Cell Volume 100.2(H) 79.0 - 92.0 fL CERNER MILLENNIUM Mean Cell Hemoglobin 33.6(H) 25.6 - 32.2 pg CERNER MILLENNIUM Mean Cell Hemoglobin Concentration 33.5 32.0 - 36.5 gm/dL CERNER MILLENNIUM Platelet 274 145 - 370 x10(3)/mc L CERNER MILLENNIUM RDW Standard Deviation 48.4(H) 35.0 - 46.0 fL CERNER MILLENNIUM RDW coefficient of variation 13.3 10.9 - 14.4 % CERNER MILLENNIUM Mean Platelet Volume 10.2 9.0 - 12.0 fL CERNER MILLENNIUM Blood specimen (specimen) 02/02/2013 3:57 PM EDT 02/02/2013 4:02 PM EDT Narrative Resulting Agency Comment Spec In Lab Alvaro Cam MD HEMATOLOGY ORDERABLE S Performing Organization Address [facility] Co de Phone Number GHAZALA DUNHAMIUM * Sedimentation rate (02/02/2013 3:57 PM EDT) Sedimentation Rate Automated 5 0 - 15 mm/hr CERNER MILLENNIUM Blood specimen (specimen) 02/02/2013 3:57 PM EDT 02/02/2013 4:02 PM EDT Narrative Resulting Agency Comment Spec In Lab Alvaro Cam MD HEMATOLOGY ORDERABLE S Performing Organization Address [facility] Phone Number CERINO WOOTENENNIUM * Hepatic Function Panel (02/02/2013 3:57 PM EDT) Protein, Total 7.3 6.4 - 8.3 gm/dL CERNER MILLENNIUM Albumin 4.6 3.2 - 5.2 gm/dL CERNER MILLENNIUM Aspartate Aminotransferase 21 0 - 39 unit/L CERNER MILLENNIUM Alanine Aminotransferase 25 0 - 55 unit/L CERNER MILLENNIUM Alkaline Phosphatase 48 40 - 120 unit/L CERNER MILLENNIUM Bilirubin, Total 0.5 0.2 - 1.3 mg/dL CERNER MILLENNIUM Bilirubin, Direct 0.1 0.0 - 0.3 mg/dL CERNER MILLENNIUM Blood specimen (specimen) 02/02/2013 3:57 PM EDT 02/02/2013 4:02 PM EDT Narrative Resulting Agency Comment Spec In Lab Alvaro Cam MD CHEMISTRY ORDERABLES Performing Organization Address [facility] Co de Phone Number [facility] * Basic Metabolic Panel (non-fasting) (02/02/2013 3:57 PM EDT) Pathologist [facility] Glucose 120 60 - 199 mg/dL CERNER MILLENNIUM Comment:Diabetes: >=200 mg/d L plus symptoms Blood Urea Nitrogen 12 10 - 20 mg/dL CERNER MILLENNIUM Creatinine 1.17 0.80 - 1.50 mg/dL CERNER MILLENNIUM Comment: Please note that the pediatric reference intervals supplied above were not validated at [facility]. Results from pediatric patients should be interpreted in conjunction to the patient's age, height and muscle mass. Sodium 142 135 - 145 mmol/L CERNER MILLENNIUM Potassium 4.3 3.5 - 5.0 mmol/L CERNER MILLENNIUM Comment: Please note: ??Patients with WBC >100,000 may have falsely elevated Potassium levels. ??For accurate Potassium quantification in these patients send serum separator tube (gold top) for subsequent determinations. ??Contact the Clinical Chemistry Laboratory if there are any questions. Chloride 103 98 - 107 mmol/L CERNER MILLENNIUM Carbon Dioxide 25 22 - 31 mmol/L CERNER MILLENNIUM Anion Gap 14 5 - 15 mmol/L CERNER MILLENNIUM Calcium 10.0 8.5 - 10.5 mg/dL CERNER MILLENNIUM Est [...] the following links into your internet browser. http://www.nkdep.nih.gov/lab-evaluation.shtml http://www.kidney.org/professionals/ Blood specimen (specimen) 02/02/2013 3:57 PM EDT 02/02/2013 4:02 PM EDT Narrative Resulting Agency Comment Spec In Lab Alvaro Cam MD CHEMISTRY ORDERABLES [facility] [employer] documented in this encounter Visit Diagnoses Diagnosis Gout- Primary Gout, unspecified Hyperuricemia Other abnormal blood chemistry Vitamin D deficiency Unspecified vitamin D deficiency Traumatic arthropathy of left hand Traumatic arthropathy, hand Traumatic arthropathy of left hand Traumatic arthropathy, hand documented in this encounter Care Teams Brick Tosser Relationship Specialty Start Date End Date Alek Esparza MD [address] [place] [phone] PCP - General 09/03/10 04/05/23 documented as of this encounter
--- OUTSIDE RECORDS SUMMARY | 2024-08-29 14:16 | XMS_ITS | Encounter Summary ---
Author Organization [facility] Address [facility] [place] [address] Care Team Providers Care Screen Printing Machine Operator Name Role Phone Alek Esparza MD Primary Care Provider [phone] Reason for Visit * Reason Comments Medication Refill Encounter Details Date Type Department Care Team (Late st Contact Info) Description 04/27/2013 [place] [address] Alvaro Cam MD [facility] [place] [address] Social History Tobacco Use Types Packs/Day Years [...] on filedocumented in this encounter Care Teams Screen Printing Machine Operator Relationship Specialty Start Date End Date Alek Esparza MD [address] [place] [phone] PCP - General 09/03/10 04/05/23 documented as of this encounter
--- OUTSIDE RECORDS SUMMARY | 2024-08-29 14:16 | XMS_ITS | Encounter Summary ---
Author Organization [facility] Address [facility] [place] [address] Care Team Providers Care Wire Straightener Name Role Phone Alek Esparza MD Primary Care Provider [phone] Reason for Visit * Reason Onset Date Comments Medication Refill 03/11/2013 Encounter Details Date Type Department Care Team (Late st Contact Info) Description 03/11/2013 Ref[place] [address] Alvaro Cam MD [facility] [place] [address] Social History Tobacco Use Types Packs/Day Years [...] encounter Miscellaneous Notes * Telephone Encounter - Anne-Marie Rankin LPN - 03/11/2013 12:27 PM EDT Already telephoned into pharmacy. documented in this encounter Plan of Treatment Not on file documented as of this encounter Visit Diagnoses Not on filedocumented in this encounter Care Teams Wire Straightener Relationship Specialty Start Date End Date Alek Esparza MD [address] [place] [address] PCP - General 09/03/10 04/05/23 documented as of this encounter
--- OUTSIDE RECORDS SUMMARY | 2024-08-29 14:16 | XMS_ITS | Encounter Summary ---
Author Organization [facility] Address [facility] [place] [address] Care Team Providers Care Quality Process Engineer Name Role Phone Alek Esparza MD Primary Care Provider [phone] Reason for Visit * Reason Comments Follow Up Fracture Left small finger fx CRPP DOI 02/08/2013 Encounter Details Date Type Department Care Team (Late st Contact Info) Description 04/11/2013 2:45 PM EDT Office Visit [place] [address] Etta Duarte MD [facility] [place] [address] Fracture of left small finger, proximal, closed [...] Sign Reading Time Taken Comments Blood Pressure 127/82 04/11/2013 1:59 PM EDT Pulse 70 04/11/2013 1:59 PM EDT Temperature - - Respiratory Rate - - Oxygen Saturation - - Inhaled Oxygen Concentration - - Weight - - Height - - Body Mass Index - - documented in this encounter Progress Notes * Alvaro Iraheta III, MD - 04/11/2013 2:25 PM EDT DATE OF SERVICE: 04/11/2013 RESPONSIBLE ATTENDING: Etta Duarte M.D. SURGERY: Close reduction percutaneous pinning on 02/08/2013 of left proximal phalanx of the small finger. INTERVAL HISTORY: Since last being seen Mr. Esteban has returned to work; in fact, he has been golfing quite regularly. Denies any pain, states that he is regaining the majority of his motion and he is quite pleased with his result. He said he had an episode of numbness and tingling and that quickly resolved and has not reoccurred. He has no complaints today. PHYSICAL EXAMINATION: On physical exam, a well-appearing gentleman in no acute distress. Evaluation of his hand reveals that the pin sites are well healed, no erythema, no drainage present. There is no malrotation. He can clench his fist without difficulty. He lacks approximately 10 degrees of extension. He has no tenderness to palpation and sensation is intact to radial and ulnar aspects of his small finger. IMAGING: Imaging shows a well-healed fracture with no interval change in alignment. ASSESSMENT AND PLAN: A 53-year-old gentleman approximately two months status post closed reduction percutaneous pinning of fracture of his proximal phalanx small finger. Clinically and radiographically, he is progressing well with signs for well-healed fracture. We have encouraged him to continue working on his motion with soft tissue massage and reminded him that he likely not see final results until close to a year's time. At this point in time, we would be discharging him from our care, but we reminded him to call if he has any questions or concerns. I examined Enoc Esteban and I agree with Dr. Iraheta's note. ETTA DUARTE MD documented in this encounter Miscellaneous Notes * Addendum Note - Etta Duarte MD - 04/15/2013 11:43 PM EDTAddended by: ETTA DUARTE on: 04/15/2013 11:43 PM Modules accepted: Level of Service documented in this encounter Plan of Treatment Not on file documented as of this encounter Visit Diagnoses Diagnosis Fracture of left small finger, proximal, closed- Primary Closed fracture of middle or proximal phalanx or phalanges of hand documented in this encounter Care Teams Quality Process Engineer Relationship Specialty Start Date End Date Alek Esparza MD [address] [place] [phone] PCP - General 09/03/10 04/05/23 documented as of this encounter
--- OUTSIDE RECORDS SUMMARY | 2024-08-29 14:16 | XMS_ITS | Encounter Summary ---
Author Organization [facility] Address [facility] [place] [address] Care Team Providers Care Floor Sweeper Name Role Phone Alek Esparza MD Primary Care Provider [phone] Encounter Details Date Type Department Care Team (Latest Contact Info) Description 03/23/2013 2:03 PM EDT - 03/23/2013 11:59 PM EDT Hospital Encounter XRay at [address] [place] [id number] Fracture of left small finger, proximal, closed Social History Tobacco Use Types Packs/Day Years [...] by mouth nightly as needed. febuxostat (ULORIC) tablet Take 2 tablets by mouth daily. 120 tablet 5 03/22/2013 03/20/2014 predniSONE (DELTASONE) 5 mg tablet Take 2 tablets by mouth daily. 60 tablet 1 03/11/2013 04/11/2013 LORAZEPAM ORAL Take 1 tablet by mouth nightly. STATES TAKE ONE 15MG TABLET NIGHTLY 06/13/2014 hydroCODone-acetaminoph en (VICODIN) 5-500 mg per tablet Take 1-2 tablets by mouth every 6 hours as needed for Pain. 36 tablet 1 02/08/2013 10/16/2014 losartan (COZAAR) 50 mg tablet Take 1 tablet by mouth daily. 60 tablet 3 12/03/2012 07/28/2013 ibuprofen (MOTRIN) 800 mg tablet 12/12/2009 09/01/2013 documented as of this encounter Plan of Treatment Not on file documented as of this encounter Procedures Procedure Name Priority Date/Time Associated Diagnosis Comments XR FINGER MINIMUM 2 VIEWS Routine 03/23/2013 2:13 PM EDT Fracture of left small finger, proximal, closed documented in this encounter Results * XR finger minimum [...] Diagnosis Fracture of left small finger, proximal, closed Closed fracture of middle or proximal phalanx or phalanges of hand documented in this encounter Care Teams Floor Sweeper Relationship Specialty Start Date End Date Alek Esparza MD [address] [place] [phone] PCP - General 09/03/10 04/05/23 documented as of this encounter
--- OUTSIDE RECORDS SUMMARY | 2024-08-29 14:16 | XMS_ITS | Encounter Summary ---
Author Organization Formerly [facility] [place] [address] Care Team Providers Care Manager Market Intelligence Name Role Phone Alek Esparza MD Primary Care Provider [phone] Reason for Visit * Reason Onset Date Comments Other 03/11/2013 flare Encounter Details Date Type Department Care Team (Late st Contact Info) Description 03/11/2013 [place] [phone] Anne-Marie Rankin LPN Other (flare) Social History Tobacco Use Types Packs/Day Years [...] Encounter - Anne-Marie Rankin LPN - 03/11/2013 12:20 PM EDT Enoc calls nurse line with c/o R foot and toe swelling and pain, flare of his gout. States he was on a long Prednisone taper, just finished his last 5 mg on 03/05, the pain started Thursday. Discussed with Dr. Cam who states the patient needs to be reassessed as his Uric acid was normal amonth ago. Suggests he go back on 10 mg of Prednisone and get him in to be re-evaluated cliff. Will coordinate with Neris and Dr. Cam next week. Called pt and relayed to go on 10 mg Prednisone and we would get back to him next week to schedule and appt. Called in more Prednisone to pt's pharmacy per Dr. Cam. documented in this encounter Plan of Treatment Not on file documented as of this encounter Visit Diagnoses Not on filedocumented in this encounter Care Teams Manager Market Intelligence Relationship Specialty Start Date End Date Alek Esparza MD [address] [place] [phone] PCP - General 09/03/10 04/05/23 documented as of this encounter
--- OUTSIDE RECORDS SUMMARY | 2024-08-29 14:16 | XMS_ITS | Encounter Summary ---
Author Organization [facility] Address [facility] [place] [address] Care Team Providers Care Solar Energy Specialist Name Role Phone Alek Espraza MD Primary Care Provider [phone] Encounter Details Date Type Department Care Team (Late st Contact Info) Description 02/21/2013 1:50 PM EDT - 02/21/2013 11:59 PM EDT Hospital Encounter XRay at [address] [place] [phone] Hand pain Social History Tobacco Use Types [...] 10 mg by mouth nightly as needed. LORAZEPAM ORAL Take 1 tablet by mouth [...] mouth daily. 60 tablet 3 12/03/2012 07/28/2013 predniSONE (DELTASONE) 5 mg tablet Take 2 tablets by mouth daily. 120 tablet 2 12/01/2012 03/09/2013 ibuprofen (MOTRIN) 800 mg tablet 12/12/2009 09/01/2013 documented as of this encounter Plan of Treatment Not on file documented as of this encounter Procedures Procedure Name Priority Date/Time Associated Diagnosis Comments XR HAND DIAGNOSTIC MINIMUM 3 VIEWS Routine 02/21/2013 2:03 PM EDT Hand pain documented in this encounter Results * XR hand diagnostic minimum 3 views (02/21/2013 2:03 PM EDT) Anatomical Region Laterality Modality Hand N/A Radiographic Caro ging 02/21/2013 2:03 PM EDT Narrative 02/21/2013 2:14 PM EDT Examination DIAG HAND MIN 3 VIEWS/LEFT Clinical History 02/08/13 LEFT 5TH FINGER ORIF POSTOP TN Comparison January 2013. Technique Findings Angulated and displaced left 5th proximal phalangeal fracture transfixed by 2 wires. ??The fracture line is partially obliterated and the angulation at the fracture site has been reduced. The alignment is near anatomic. The soft tissue swelling has decreased. Impression Healing left 5th proximal phalangeal fracture with reduced angulation at fracture site. Procedure Note Melina Thorne MD - 02/21/2013 Examination DIAG HAND MIN 3 VIEWS/LEFT Clinical History 02/08/13 LEFT 5TH FINGER ORIF POSTOP TN Comparison January 2013. Technique Findings Angulated and displaced left 5th proximal phalangeal fracture transfixedby 2 wires. The fracture line is partially obliterated and the angulation atthe fracture site has been reduced. The alignment is near anatomic. The softtissue swelling has decreased. Impression Healing left 5th proximal phalangeal fracture with reduced angulation at fracture site. Rohan Duarte MD IMG DX ORDERABLES documented in this encounter Visit Diagnoses Diagnosis Hand pain Pain in limb documented in this encounter Care Teams Solar Energy Specialist Relationship Specialty Start Date End Date Alek Esparza MD [address] [place] [phone] PCP - General 09/03/10 04/05/23 documented as of this encounter
--- OUTSIDE RECORDS SUMMARY | 2024-08-29 14:16 | XMS_ITS | Encounter Summary ---
Author Organization [facility] Address [facility] [place] [address] Care Team Providers Care Accounting Office Manager Name Role Phone Alek Esparza MD Primary Care Provider [phone] Reason for Visit * Reason Comments Follow-up Encounter Details Date Type Department Care Team (Late st Contact Info) Description 09/01/2013 9:45 AM EST [place] [phone] Alvaro Cam MD [facility] [address] [place] [address] Gout; CRP elevated Discharge Disposition: Home Social History [...] Sign Reading Time Taken Comments Blood Pressure 123/75 09/01/2013 9:48 AM EST Pulse 77 09/01/2013 9:48 AM EST Temperature 36.9 ??C (98.5 ??F) 09/01/2013 9:48 AM ES T Respiratory Rate 16 09/01/2013 9:48 AM EST Oxygen Saturation - - Inhaled Oxygen Concentration - - Weight 113.4 kg (250 lb) 09/01/2013 9:48 AM EST Height 180.3 cm (5' 11) 09/01/2013 9:48 AM EST Body Mass Index 34.87 09/01/2013 9:48 AM EST documented in this encounter Patient Instructions * Patient Instructions* Alvaro Cam MD - 09/01/2013 10:03 AM EST 1) Continue Uloric, 80 mg daily. 2) Check labs today. 3) Return to follow up in 3-4 months. documented in this encounter Progress Notes * Alvaro Cam MD - 09/01/2013 9:58 AM EST REASON FOR VISIT: Follow up for tophaceous gout and hyperuricemia. INTERVAL HISTORY: The pt was a 53-year-old male, who returned for a follow up of tophaceous gout and hyperuricemia. The pt noted that since his last visit on April 11, 2013, he continued to be on daily febuxostat, 80 mg in conjunction with daily prednisone, 10 mg for his tophaceous gout and hyperuricemia. Hecontinued to be on losartan for his hypertension and hyperuricemia. He had no joint pain and swelling while on current regimen. He tolerated febuxostat and losartan well without [...] with his partner. 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 FAMILY HISTORY: Mother - Unknown, alive at the age of 66. Father - Prostate cancer, alive at the age of 68. PHYSICAL EXAMINATION: Vitals 09/01/2013 SYSTOLIC 123 DIASTOLIC 75 PULSE 77 TEMPERATURE 98.5 RESPIRATIONS 16 Height (Albanian) 5' 11 Height (Metric) 180.3 cm Weight (Albanian) 250 lbs Weight (Metric) 113.399 kg BODY MASS INDEX 34.88 kg/m2 General - Alert, co-operative, no apparent [...] this pt is 5.0. He will continue prednisone taper as tolerated. 3) Hypertension. The pt's blood pressure has improved since he was put on losartan, which is also auricosuric agent. He will continue losartan. 4) Elevated CRP. The pt's elevated CRP is likely a result of poorly controlled tophaceous gout. He will undergo repeat laboratory studies today. RECOMMENDATIONS: 1) Continue Uloric, 80 mg daily. 2) Check labs today. 3) Return to follow up in 3-4 months. Alvaro Cam MD, PhD documented in this encounter Plan of Treatment Not on file documented as of this encounter Procedures Procedure Name Priority Date/Time Associated Diagnosis Comments DIFFERENTIAL, AUTOMATED Routine 09/01/2013 10:11 AM EST SEDIMENTATION RATE Routine 09/01/2013 10 :11 AM EST Gout CBC (WITH DIFF) Routine 09/01/2013 10:11 AM EST Gout CRP, CARDIAC RISK (HS CRP) Routine 09/01/2013 10:11 AM EST CRP elevated URIC ACID Routine 09/01/2013 10:11 AM EST Gout HEPATIC FUNCTION PANEL Routine 3 10:11 AM EST Gout BASIC METABOLIC PANEL Routine 09/01/2013 10:11 AM EST Gout documented in this encounter Results * Differential, Automated (09/01/2013 10:11 AM EST) Neutrophil % 65.4 34.0 - 71.0 % CERNER MILLENNIUM Neutrophil Absolute 6.18 1.50 - 6.30 x10(3)/mcL CERNER MILLENNIUM Lymph % 25.5 19.0 - 53.0 % CERNER MILLENNIUM Lymphocytes Abs 2.4 1.0 - 3.6 x10(3)/mcL CERNER MILLENNIUM Monocyte % 7.1 4.0 - 13.0 % CERNER MILLENNIUM Monocyte Abs 0.7 0.2 - 1.0 x10(3)/mcL CERNER MILLENNIUM Eos % 1.1 0.0 - 7.0 % CERNER MILLENNIUM Eosinophils Abs 0.1 0.0 - 0.5 x10(3)/mcL CERNER MILLENNIUM Basophil % 0.7 0.0 - 2.0 % CERNER MILLENNIUM Baso Absolute 0.1 0.0 - 0.2 x10(3)/mcL CERNER MILLENNIUM Immature Gran % 0.20 0.00 - 0.66 % CERNER MILLENNIUM Comment: Immature granulocytes(IG's)percentage and absolute count will include metamyelocytes, myelocytes, and promyelocytes. Blood smears from CBCs yielding IG's will be scanned manually for concordance. If this scan disagrees with the automated IG or if promyelocytes are noted, a manual differential will be performed. Immature Gran Absolute 0.02 0.00 - 0.05 x10(3)/mcL [facility] Blood specimen (specimen) 09/01/2013 10:11 AM EST 09/01/2013 10:16 AM EST Alvaro Cam MD HEMATOLOGY ORDERABLE S Performing Organization Address [facility] Co de Phone Number [facility] * High Sensitivity CRP (09/01/2013 10:11 AM EST) [facility] C-Reactive Protein High Sensitivity 1.0 mg/L [facility] Comment: Interpretations: 1) For accurate cardiac risk [...] prevention. ??Circulation 2003; 107:363-369 Blood specimen (specimen) 09/01/2013 10:11 AM EST 09/01/2013 10:16 AM EST Narrative Resulting Agency Comment Spec In Lab Alvaro Cam MD CHEMISTRY ORDERABLES Performing Organization Address [facility] Co de Phone Number [facility] * Uric acid (09/01/2013 10:11 AM EST) Uric Acid 4.4 3.5 - 8.5 mg/dL CERNER MILLENNIUM Blood specimen (specimen) 09/01/2013 10:11 AM EST 09/01/2013 10:16 AM EST Narrative Resulting Agency Comment Spec In Lab Alvaro Cam MD CHEMISTRY ORDERABLES CERNER SUGARENNIUM * (ABNORMAL) CBC (with Diff) (09/01/2013 10:11 AM EST) White Blood Cell 9.4 4.0 - 10.0 x10(3)/mc L CERNER MILLENNIUM Red Blood Cell 4.82 4.63 - 6.08 x10(6)/mc L CERNER MILLENNIUM Hemoglobin 16.2 13.7 - 17.5 gm/dL CERNER MILLENNIUM Hematocrit 48.6 40.0 - 51.0 % CERNER MILLENNIUM Mean Cell Volume 100.8(H) 79.0 - 92.0 fL CERNER MILLENNIUM Mean Cell Hemoglobin 33.6(H) 25.6 - 32.2 pg CERNER MILLENNIUM Mean Cell Hemoglobin Concentration 33.3 32.0 - 36.5 gm/dL CERNER MILLENNIUM Platelet 265 145 - 370 x10(3)/mc L CERNER MILLENNIUM RDW Standard Deviation 49.1(H) 35.0 - 46.0 fL CERNER MILLENNIUM RDW coefficient of variation 13.4 10.9 - 14.4 % CERNER MILLENNIUM Mean Platelet Volume 10.5 9.0 - 12.0 fL CERNER MILLENNIUM Blood specimen (specimen) 09/01/2013 10:11 AM EST 09/01/2013 10:16 AM EST Narrative Resulting Agency Comment Spec In Lab Alvaro Cam MD HEMATOLOGY ORDERABLE S [facility]ERINO WOOTENENNIUM * Sedimentation rate (09/01/2013 10:11 AM EST) Sedimentation Rate Automated 5 0 - 15 mm/hr CERNER MILLENNIUM Blood specimen (specimen) 09/01/2013 10:11 AM EST 09/01/2013 10:16 AM EST Narrative Resulting Agency Comment Spec In Lab Alvaro Cam MD HEMATOLOGY ORDERABLE S Performing Organization Address [facility] de Phone Number [facility] * Hepatic Function Panel (09/01/2013 10:11 AM EST) Protein, Total 7.2 6.4 - 8.3 gm/dL CERNER MILLENNIUM Albumin 4.4 3.2 - 5.2 gm/dL CERNER MILLENNIUM Aspartate Aminotransferase 21 0 - 39 unit/L CERNER MILLENNIUM Alanine Aminotransferase 24 0 - 55 unit/L CERNER MILLENNIUM Alkaline Phosphatase 55 40 - 120 unit/L CERNER MILLENNIUM Bilirubin, Total 0.5 0.2 - 1.3 mg/dL CERNER MILLENNIUM Bilirubin, Direct 0.1 0.0 - 0.3 mg/dL CERNER MILLENNIUM Blood specimen (specimen) 09/01/2013 10:11 AM EST 09/01/2013 10:16 AM EST Narrative Resulting Agency Comment Spec In Lab Alvaro Cam MD CHEMISTRY ORDERABLES Performing Organization Address [facility] Phone Number [facility] * Basic Metabolic Panel (non-fasting) (09/01/2013 10:11 AM EST) Glucose 152 60 - 199 mg/dL CERNER MILLENNIUM Comment:Diabetes: >=200 mg/d L plus symptoms Blood Urea Nitrogen 11 10 - 20 mg/dL CERNER MILLENNIUM Creatinine 1.20 0.80 - 1.50 mg/dL CERNER MILLENNIUM Comment: Please note that the pediatric reference intervals supplied above were not validated at [facility]. Results from pediatric patients should be interpreted [...] internet browser. http://www.nkdep.nih.gov/lab-evaluation.shtml http://www.kidney.org/professionals/ Blood specimen (specimen) 09/01/2013 10:11 AM EST 09/01/2013 10:16 AM EST Narrative Resulting Agency Comment Spec In Lab Alvaro Cam MD CHEMISTRY ORDERABLES GHAZALA ELAM documented in this encounter Visit Diagnoses Diagnosis Gout Gout, unspecified CRP elevated Elevated C-reactive protein (CRP) documented in this encounter Care Teams Accounting Office Manager Relationship Specialty Start Date End Date Alek Esparza MD [address] [place] [phone] PCP - General 09/03/10 04/05/23 documented as of this encounter
--- OUTSIDE RECORDS SUMMARY | 2024-08-29 14:16 | XMS_ITS | Encounter Summary ---
Author Organization [facility] [place] [address] Care Team Providers Care Bobbin Presser Name Role Phone Alek Esparza MD Primary Care Provider Reason for Visit * Reason Onset Date Comments Rash 11/01/2012 Encounter Details Date Type Department Care Team (Late st Contact Info) Description 11/01/2012 Tele[place] [phone] Mracial Lake RN Rash Social History Tobacco Use Types Packs/Day Years Used Date Smoking Tobacco: Never Sex and Gender Information Value Date Recorded Sex Assigned at Not on file Gender Identity Not on file Sexual Orientation Not on file documented as of this encounter Miscellaneous Notes * Telephone Encounter - Marcial Lake RN - 11/01/2012 11:46 AM EST Enoc was called and made aware of Recommendations by . * Telephone Encounter - Marcial Lake RN - 11/01/2012 11:37 AM EST I spoke with in regards to this patient and he would like to have him stop the Allopurinol,check in with us in 1 week or sooner if he is not improving and we will consider Uloric at that time. Enoc will remain on Prednisone for now at 10 mg. * Telephone Encounter - Marcial Lake RN - 11/01/2012 10:26 AM EST Enoc calls today and reports that he has developed a rash on his hands, arms, and now a spot on 1 of his legs. He reports rash as being red with white pimple like areas, dry and painful. Some parts of rash are very hot to touch. He reports his lips as feeling like they are sunburned. He went to his PCP last week and was given Ketoconazole 2% to apply to affected areas, which he states made it worse. Enoc is available to come in for an appointment today if possible. Enoc is currently at 10 mgof Prednisone daily. I will discuss this patient with Dr. Cam for his recommendations and call Enoc back with a POC. documented in this encounter Plan of Treatment Not on file documented as of this encounter Visit Diagnoses Not on filedocumented in this encounter Care Teams Bobbin Presser Relationship Specialty Start Date End Date Alek Esparza MD [address] [place] [phone] PCP - General 09/03/10 04/05/23 documented as of this encounter
--- OUTSIDE RECORDS SUMMARY | 2024-08-29 14:16 | XMS_ITS | Encounter Summary ---
Author Organization [facility] Address [facility] [address] Care Team Providers Care Deck Cadet Name Role Phone Alek Esparza MD Primary Care Provider [phone] Encounter Details Date Type Department Care Team (Latest Contact Info) Description 02/08/2013 10:57 AM EDT - 02/08/2013 2:22 PM EDT Hospital Encounter [place] [phone] Etta Duarte MD [facility] [place] [address] Discharge Disposition: Home Social History Tobacco Use [...] Reading Time Taken Comments Blood Pressure 124/72 02/08/2013 2:00 PM EDT Pulse 66 02/08/2013 2:00 PM EDT Temperature 36.8 ??C (98.2 ??F) 02/08/2013 1:48 PM ED T Respiratory Rate 16 02/08/2013 2:00 PM EDT Oxygen Saturation 95% 02/08/2013 2:00 PM EDT Inhaled Oxygen Concentration - - [...] urinate, call the Outpatient Surgery Center at [phone]. If you get an answering machine, we will return your call. If you need to talk to someone immediately, call the [facility] hospital number [phone] ask for your surgeon regional property manager or call your local MD. You may also proceed to the closest Emergency Department. [facility] 04/05 ask for your doctor regional property manager * Patient Instructions* Isidoro Lay - 02/08/2013 [...] on them. You can also take an opuk-wws-vnurehl stool softener, colace or senna, to facilitate [...] unsteady on your feet. Call your doctor (#[phone]) if: 1. You have a fever > 101.5 or experience chills Increased discharge from the incision Any redness or swelling around the incision Increased pain or change in the pain that is not controlled by your pain meds WHERE TO CALL WITH QUESTIONS [facility] Ask for the resident regional property manager for your provider [facility] (7:00am - 5:00pm) Future Appointments Date Time Provider Department Center 02/21/2013 1:45 PM 3a, Cast Room [facility] 02/21/2013 2:30 PM Etta uDarte MD [facility] 02/21/2013 [...] Duarte MD - 02/08/2013 1:38 PM EDT [facility] Operative Note Patient Name: Enoc Esteban : [id number] MR#: [id number] Case Date: 02/08/2013 Surgeon: Surgeon(s) and Role: [...] A preoperative time-out was performed as per [facility] protocol. His left small finger was examined [...] Operative Note Patient Name: Enoc Esteban : [id number] MR#: [id number] Case Date: 02/08/2013 Surgeon: Surgeon(s) and Role: [...] to this patient.) * Miscellaneous - Provider, Scanning - 02/08/2013 12:59 PM EDT documented in [...] MAR Action Action Date Dose Rate Site fentaNYL 50mcg/mL injection 25-50 mcg, Intravenous, EVERY 5 MIN PRN, Starting on Thu02/08/13 at 1352, Until Thu02/08/13 at 1627, Pain, [...] (2 g), Intravenous, ONCE, 1 dose, On Thu02/08/13 at 1130, Administer over 30 Minutes, To [...] Thu02/08/13 at 1130, Until Thu02/08/13 at 1627 1130 (New Bag - Prov ider: Arely Alberts RN)1336 (Anesthesia Volume Adjustment - Provider: Loren Harrell CRNA) PRN Medication Order 02/06/2013 02/07/2013 02/08/2013 BUpivacaine (PF) (MARCAINE) 0.25 % (2.5 mg/mL) injection (CANCELED) ONCE PRN, Starting on Thu02/08/13 at 1332, Until Thu02/08/13 at 1627, Intra-Operative (Intra-Procedure), Routine 1332 (Given - Provid er: Etta Duarte MD) fentaNYL 50mcg/mL injection (CANCELED) 25-50 mcg, Intravenous, EVERY 5 MIN PRN, Starting on Thu02/08/13 at 1352, Until Thu02/08/13 at 1627, Pain, [...] RN) documented in this encounter Care Teams Deck Cadet Relationship Specialty Start Date End Date Alek Esparza MD [address] [place] [phone] PCP - General 09/03/10 04/05/23 documented as of this encounter
--- OUTSIDE RECORDS SUMMARY | 2024-08-29 14:16 | XMS_ITS | Encounter Summary ---
Author Organization [facility] Address [facility] [place] [address] Care Team Providers Care Equipment Detailer Name Role Phone Alek Esparza MD Primary Care Provider [phone] Encounter Details Date Type Department Care Team (Late st Contact Info) Description 08/04/2012 10:32 AM EDT - 08/04/2012 11:59 PM EDT Hospital Encounter XRay at [address] [place] [phone] Joint pain Social History Tobacco Use Types Packs/Day [...] 10 mg by mouth nightly as needed. predniSONE (DELTASONE) 10 mg tablet Take 10 mg by mouth daily. 12/01/2012 hydroCODone-acetaminoph en (NORCO) 10-325 mg per tablet Take 1 tablet by mouth 2 times daily as needed. 02/08/2013 predniSONE (DELTASONE) 5 mg tablet Take 3 tablets by mouth daily. 90 tablet 3 08/04/2012 08/31/2012 ibuprofen (MOTRIN) 800 mg tablet 12/12/2009 09/01/2013 documented as of this encounter Plan of Treatment Not on file documented as of this encounter Procedures Procedure Name Priority Date/Time Associated Diagnosis Comments XR ELBOW 3 VIEW COMPLETE Routine 08/04/2012 10:53 AM EDT Joint pain documented in this encounter Results * XR elbow 3 view complete (08/04/2012 10:53 AM EDT) Anatomical Region Laterality Modality Elbow N/A Radiographic Caro ging 08/04/2012 10:5 3 AM EDT Narrative 08/04/2012 11:11 AM EDT Examination ELBOW 3 VIEW COMPLETE/BILAT Clinical History large right elbow nodule Comparison None Technique Findings On the right, there is a large spur on the olecranon. However, no fracture or dislocation is seen. On the left, there is also a large olecranon spur. ??There is also a well corticated ossicle adjacent to the medial epicondyles, possibly related to prior injury. ??However, no acute fracture or dislocation or effusion is seen. Impression Large olecranon spurs. ??No acute fracture or dislocation or effusion. Procedure Note Teofilo Mead MD - 08/04/2012 Examination ELBOW 3 VIEW COMPLETE/BILAT Clinical History large right elbow nodule Comparison None Technique Findings On the right, there is a large spur on the olecranon. However, no fractureor dislocation is seen. On the left, there is also a large olecranon spur.There is also a well corticated ossicle adjacent to the medial epicondyles,possibly related to prior injury. However, no acute fracture or dislocation oreffusion is seen. Impression Large olecranon spurs. No acute fracture or dislocation or effusion. Alvaro Cam MD IMG DX ORDERABLES documented in this encounter Visit Diagnoses Diagnosis Joint pain Pain in joint, site unspecified documented in this encounter Care Teams Equipment Detailer Relationship Specialty Start Date End Date Alek Esparza MD [address] [place] [phone] PCP - General 09/03/10 04/05/23 documented as of this encounter
--- OUTSIDE RECORDS SUMMARY | 2024-08-29 14:16 | XMS_ITS | Encounter Summary ---
Author Organization [facility] [place] [address] Care Team Providers Care Patient Case Coordinator Name Role Phone Alek Esparza MD Primary Care Provider [phone] Encounter Details Date Type Department Care Team (Late st Contact Info) Description 12/13/2012 Telephone [place] [phone] Marcial Lake RN Social History Tobacco Use Types Packs/Day Years Used Date Smoking Tobacco: Never Sex and Gender Information Value Date Recorded Sex Assigned at Not on file Gender Identity Not on file Sexual Orientation Not on file documented as of this encounter Miscellaneous Notes * Telephone Encounter - Marcial Lake RN - 12/13/2012 3:25 PM EST I spoke with Enoc today in regards to message from . He had already picked up his medications. We went over what they were and why he was taking them. He has a follow up in January. documented in this encounter Plan of Treatment Not on file documented as of this encounter Visit Diagnoses Not on filedocumented in this encounter Care Teams Patient Case Coordinator Relationship Specialty Start Date End Date Alek Esparza MD [address] [place] [phone] PCP - General 09/03/10 04/05/23 documented as of this encounter
--- OUTSIDE RECORDS SUMMARY | 2024-08-29 14:16 | XMS_ITS | Encounter Summary ---
Author Organization [facility], [facility] Address [facility] [place] [address] Care Team Providers Care Production Cook Name Role Phone Alek Esparza MD Primary Care Provider [phone] Reason for Visit * Reason Comments Follow-up Encounter Details Date Type Department Care Team (Late st Contact Info) Description 12/12/2013 4:40 PM EST [place] [phone] Alvaro Cam MD [facility] [place] [address] Gout (Primary Dx); Hyperuricemia Discharge Disposition: Home Social [...] * Patient Instructions* Alvaro Cam MD - 12/14/2013 10:50 AM EST 1) Continue Uloric, 80 mg daily. 2) Check labs today. 3) Return to follow up in 3-4 months. documented in this encounter Progress Notes * Alvaro Cam MD - 12/12/2013 4:46 PM EST REASON FOR VISIT: Follow up for tophaceous gout and hyperuricemia. INTERVAL HISTORY: The pt was a 53-year-old male, who returned for a follow up of tophaceous gout and hyperuricemia. The pt noted that since his last visit on Oct 01, 2013, he continued to be on daily febuxostat, 80 mg for his tophaceous gout and hyperuricemia. He continued to be on losartan for his hypertension and hyperuricemia. He had no recurrent joint pain and swelling while on current [...] living with his partner. 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 FAMILY HISTORY: Mother - Unknown, alive at the age of 66. Father - Prostate cancer, alive at the age of 68. PHYSICAL EXAMINATION: General - Alert, co-operative, no apparent distress, [...] is 5.0. He will continue current regimen. 3) Hypertension. The pt will continue losartan, [...] Date/Time Associated Diagnosis Comments DIFFERENTIAL, AUTOMATED Routine 12/12/2013 5:05 PM EST SEDIMENTATION RATE Routine 12/12/2013 5: 05 PM EST Gout CBC (WITH DIFF) Routine 12/12/2013 5:05 PM EST Gout URIC ACID Routine 12/12/2013 5:05 PM EST Gout HEPATIC FUNCTION PANEL Routine 4 5:05 PM EST Gout BASIC METABOLIC PANEL Routine 12/12/2013 5:05 PM EST Gout documented in this encounter Results * Differential, Automated (12/12/2013 5:05 PM EST) Neutrophil % 53.8 34.0 - 71.0 % [facility] Neutrophil Absolute 4.54 1.50 - 6.30 x10(3)/mcL [facility] Lymph % 33.6 19.0 - 53.0 % [facility] Lymphocytes Abs 2.8 1.0 - 3.6 x10(3)/mcL [facility] Monocyte % 9.5 4.0 - 13.0 % [facility] Monocyte Abs 0.8 0.2 - 1.0 x10(3)/mcL [facility] Eos % 2.1 0.0 - 7.0 % [facility] Eosinophils Abs 0.2 0.0 - 0.5 x10(3)/mcL [facility]ILLENNI[facility] Basophil % 0.6 0.0 - 2.0 % [facility] Baso Absolute 0.0 0.0 - 0.2 x10(3)/mcL [facility] Immature Gran % 0.40 0.00 - 0.66 % [facility] Comment: Immature granulocytes(IG's)percentage and absolute count will include metamyelocytes, myelocytes, and promyelocytes. Blood smears from CBCs yielding IG's will be scanned manually for concordance. If this scan disagrees with the automated IG or if promyelocytes are noted, a manual differential will be performed. Immature Gran Absolute 0.03 0.00 - 0.05 x10(3)/mcL [facility] Blood specimen (specimen) 12/12/2013 5:05 PM EST 12/12/2013 5:13 PM EST Alvaro Cam MD HEMATOLOGY ORDERABLE S [facility] * Uric acid (12/12/2013 5:05 PM EST) Uric Acid 4.2 3.5 - 8.5 mg/dL [facility] Blood specimen (specimen) 12/12/2013 5:05 PM EST 12/12/2013 5:13 PM EST Narrative Resulting Agency Comment Spec In Lab Alvaro Cam MD CHEMISTRY ORDERABLES [facility] * (ABNORMAL) CBC (with Diff) (12/12/2013 5:05 PM EST) White Blood Cell 8.4 4.0 - 10.0 x10(3)/mc L [facility] Red Blood Cell 4.76 4.63 - 6.08 x10(6)/mc L [facility] Hemoglobin 15.7 13.7 - 17.5 gm/dL [facility] Hematocrit 47.3 40.0 - 51.0 % [facility] MILL[facility]NI[facility] Mean Cell Volume 99.4(H) 79.0 - 92.0 fL [facility] Mean Cell Hemoglobin 33.0(H) 25.6 - 32.2 pg [facility] Mean Cell Hemoglobin Concentration 33.2 32.0 - 36.5 gm/dL [facility] MILLENNI[facility] Platelet 292 145 - 370 x10(3)/mc L [facility] MILLENNI[facility] RDW Standard Deviation 47.5(H) 35.0 - 46.0 fL [facility] MILLENNIUM RDW coefficient of variation 13.0 10.9 - 14.4 % [facility]ILL[facility]NI[facility] Mean Platelet Volume 10.5 9.0 - 12.0 fL [facility] Blood specimen (specimen) 12/12/2013 5:05 PM EST 12/12/2013 5:13 PM EST Narrative Resulting Agency Comment Spec In Lab Alvaro Cam MD HEMATOLOGY ORDERABLE S Performing Organization Address [facility] de Phone Number [facility] * Sedimentation rate (12/12/2013 5:05 PM EST) Sedimentation Rate Automated 6 0 - 15 mm/hr [facility] MILLENNIUM Blood specimen (specimen) 12/12/2013 5:05 PM EST 12/12/2013 5:13 PM EST Narrative Resulting Agency Comment Spec In Lab Alvaro Cam MD HEMATOLOGY ORDERABLE S [facility] * Hepatic Function Panel (12/12/2013 5:05 PM EST) Protein, Total 7.0 6.4 - 8.3 gm/dL [facility]ILLENNI[facility] Albumin 4.3 3.2 - 5.2 gm/dL [facility]ILL[facility]NI[facility] Aspartate Aminotransferase 24 0 - 39 unit/L [facility]ILL[facility]NI[facility] Alanine Aminotransferase 26 0 - 55 unit/L [facility] MILLENNI[facility] Alkaline Phosphatase 55 40 - 120 unit/L [facility] MILLENNI[facility] Bilirubin, Total 0.6 0.2 - 1.3 mg/dL [facility] Bilirubin, Direct 0.1 0.0 - 0.3 mg/dL [facility] Blood specimen (specimen) 12/12/2013 5:05 PM EST 12/12/2013 5:13 PM EST Narrative Resulting Agency Comment Spec In Lab Alvaro Cam MD CHEMISTRY ORDERABLES [facility] * (ABNORMAL) Basic Metabolic Panel (non-fasting) (12/12/2013 5:05 PM EST) Glucose 120 60 - 199 mg/dL [facility] Comment:Diabetes: >=200 mg/d L plus symptoms Blood Urea Nitrogen 8(L) 10 - 20 mg/dL [facility] Creatinine 1.11 0.80 - 1.50 mg/dL [facility] Comment: Please note that the pediatric reference intervals supplied above were not validated at [facility]. Results from pediatric patients should be interpreted in conjunction to the patient's age, height and muscle mass. Sodium 139 135 - 145 mmol/L [facility]ERN[facility] MILLENNIUM Potassium 4.1 3.5 - 5.0 mmol/L [facility] MILLENNIUM Comment: [...] internet browser. http://www.nkdep.nih.gov/lab-evaluation.shtml http://www.kidney.org/professionals/ Blood specimen (specimen) 12/12/2013 5:05 PM EST 12/12/2013 5:13 PM EST Narrative Resulting Agency Comment Spec In Lab Alvaro Cam MD CHEMISTRY ORDERABLES Performing Organization Address City/State/ZIP Co ak Phone Number [facility] documented in this encounter Visit Diagnoses Diagnosis Gout- Primary Gout, unspecified Hyperuricemia Other abnormal blood chemistry documented in this encounter Care Teams Production Cook Relationship Specialty Start Date End Date Alek Esparza MD [address] [place] [phone] PCP - General 09/03/10 04/05/23 documented as of this encounter
--- OUTSIDE RECORDS SUMMARY | 2024-08-29 14:16 | XMS_ITS | Encounter Summary ---
Author Organization [facility], [facility] Address [facility] [place] [address] Care Team Providers Care Stud Setter Name Role Phone Alek Esparza MD Primary Care Provider [phone] Encounter Details Date Type Department Care Team (Late st Contact Info) Description 02/21/2013 1:00 PM EDT Office [place] [phone] Chao Tejada, OT [facility] PHYSICAL MEDICINE & [place] [address] Alek Esparza MD [address] [place] [phone] Fracture of left small finger, proximal, closed [...] as of this encounter Progress Notes * Chao Tejada, OT - 02/21/2013 2:50 PM EDT OCCUPATIONAL THERAPY SPLINTING EVALUATION REFERRAL SOURCE: Rohan Duarte MD DIAGNOSIS: 1. Fracture of left small finger, proximal, closed DATE OF INJURY: 01.29.2013 DATE OF SURGERY: 02.08.2013 NEXT MD FOLLOW UP: 03.09.2013 TOTAL TREATMENT TIME: 31 Minutes TIMED CODE TREATMENT TIME: Ortho management and training 31 minutes CURRENT HISTORY: Enoc Esteban is a 53 y.o. year old male who sustained a left small finger proximal phalanx fracture requiring management with closed reduction and percutaneous pinning. Enoc Esteban was seen by Rohan Duarte MD for recheck today in hand clinic. Enoc Esteban is referred to Occupational Therapy for evaluation and treatment to include splinting and range of motion. Patient presents today alone. Mechanism of Injury: Patient's symptoms come from catching his hand while splitting wood. Current Symptoms/functional impairments: Patient presents with pain and limited mobility/range of motion with [address] 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 HAND DOMINANCE: Right PAIN: At Rest: 2/10 With Activity: 4-5/10 FUNCTIONAL LIMITATIONS: Enoc Esteban identifies difficulty with the following functional activities using the Patient Specific Functional Scale (PSFS): 0/10 (unable to perform) to 10/10 (Able to perform without difficulty) Activity At Evaluation 1.) Dressing 7-8 2.) Home management 8 3.) Bathing 8 TREATMENT TODAY: Dressings applied Fabricated a hand based left ulnar gutter splint including D3-5 in intrinsic plus position. Educated on splint wear and care, multimedia production assistant except pin care and dressing changes. ASSESSMENT: Enoc Esteban presents today with functional limitations due to pain and limited mobility in his left hand and wrist. Patient has a well fitting splint post therapy. He has pins in place with no signs of infection. He is not allowed to begin motion as yet per MD. Enoc Esteban has good potential for gains with therapy. Patient knows to call with any questions or concerns. Usp Goals (to be met by discharge): Date Goal Met: 1.) Enoc Esteban will complete activities of daily living independently at a 10/10 level. Goal Status: Not met 2.) Enoc Esteban will be able to resume all occupational roles independently without restriction. Goal Status: Not met Short Term Goals (to be met by end of the visit today): Date Goal Met: 02.21.2013 1. Enoc Esteban will be independent with home exercises as evident with demonstration in therapy. Goal Status: Meets today with demonstration today. 02.21.2013 2. Enoc Esteban will demonstrate independence with donning and doffing of splint and verbalizationof splinting purpose. Goal Status: Meets today with demonstration today. PLAN: Recheck in clinic with MD in 2 weeks for evaluation of motion and progression of treatment in therapy per MD. (X) Enoc Esteban participated in the evaluation, collaborated on treatment goals, and agrees to the treatment plan . documented in this encounter Plan of Treatment Not on file documented as of this encounter Visit Diagnoses Diagnosis Fracture of left small finger, proximal, closed- Primary Closed fracture of middle or proximal phalanx or phalanges of hand documented in this encounter Care Teams Stud Setter Relationship Specialty Start Date End Date Alek Esparza MD [address] [place] [phone] PCP - General 09/03/10 04/05/23 documented as of this encounter
--- OUTSIDE RECORDS SUMMARY | 2024-08-29 14:16 | XMS_ITS | Encounter Summary ---
Author Organization [facility] Address [facility] [place] [address] Care Team Providers Care Veterinary Pathologist Name Role Phone Alek Esparza MD Primary Care Provider [phone] Encounter Details Date Type Department Care Team (Late st Contact Info) Description 02/17/2013 Orders [place] [phone] Rohan Duarte MD [facility] DR [place] [address] Hand pain (Primary Dx) Social History Tobacco [...] Diagnosis Hand pain- Primary Pain in limb Hand pain Pain in limb documented in this encounter Care Teams Veterinary Pathologist Relationship Specialty Start Date End Date Alek Esparza MD [address] [place] [phone] PCP - General 09/03/10 04/05/23 documented as of this encounter
--- OUTSIDE RECORDS SUMMARY | 2024-08-29 14:16 | XMS_ITS | Encounter Summary ---
Author Organization [facility] Address [facility] [place] [address] Care Team Providers Care Wound Care Rn Name Role Phone Alek Esparza MD Primary Care Provider [phone] Reason for Visit * Reason Comments Follow Up Surgery Left 5m finger fx CR PP DOS 02/08/2013 Encounter Details Date Type Department Care Team (Late st Contact Info) Description 03/23/2013 3:10 PM EDT Office Visit [place] [phone] Rohan Duarte MD [facility] [place] [address] Fracture of left small finger, proximal, closed [...] Sign Reading Time Taken Comments Blood Pressure 114/72 03/23/2013 2:43 PM EDT Pulse 81 03/23/2013 2:43 PM EDT Temperature - - Respiratory Rate - - Oxygen Saturation - - Inhaled Oxygen Concentration - - Weight - - Height - - Body Mass Index - - documented in this encounter Progress Notes * Radha Menjivar PA - 03/23/2013 4:07 PM EDT PATIENT NAME: Enoc Esteban AGE: 53 y.o. MR#: [id number] DATE OF VISIT: 03/23/2013 DATE OF SURGERY: 02/08/2013 SURGERY DESCRIPTION: Closed reduction and percutaneous pinning of proximal phalanx fracture, left small finger. SURGEON: Dr. Duarte CHIEF COMPLAINT: 6 weeks S/P above procedure HISTORY OF PRESENT ILLNESS: Mr. Esteban is a 53 y.o. male who presents 6 weeks s/p the above procedures for office follow up. He has very little pain in the finger. His pins were removed last visit, but he was instructed to continue to limit his activity since his fracture line is still visible. He continues to have some stiffness. Mr. Esteban denies any fever/chills or other constitutional signs of infection. He denies any numbness or tingling distal to the surgical procedure. The patient has not noticed any abnormal drainage from his incision or increased redness or discomfort. PHYSICAL EXAMINATION: Mr. Esteban is a 53 y.o. male who is alert and oriented. He appears in no acutediscomfort and is resting comfortably in the exam room. Inspection: Finger remains well aligned. There is no erythema or ecchymosis. Mild swelling to the PIP joint. ROM/Strength: FDS, FDP tendons are intact. He does have some difficulty bringing the small finger into full flexion at the PIP joint. No malrotation or scissoring with active motion. Neurovascular: Sensate distally and well perfused Imaging: X-rays from today show continued healing of the left small finger proximal phalanx fracture. There's been no displacement since pin removal. His fracture line is still visible on the obliqueview. ASSESSMENT: 6 weeks status post above procedure PLAN: Mr. Esteban and I discussed his surgical procedure and rehabilitation. At this point he may work more aggressively on regaining his finger range of motion. He was instructed to ananya tape his fingers while doing activity for protection. This may also help improve his range of motion. We would like to check another set of x-rays before releasing him to full activity, however. All of the patients questions and concerns were answered at this visit. The patient understands to contact me if theyhave any other questions or concerns. The patient is scheduled for follow up in early April as he would like to coordinate this visit with an existing rheumatology visit. We will check x-rays at this p oint in of his fracture looks completely healed we will discharge him from our care. documented in this encounter Plan of Treatment Not on file documented as of this encounter Results * XR finger minimum 2 views (04/11/2013 1:12 PM EDT) Anatomical Region Laterality Modality Hand N/A Radiographic Caro ging 04/11/2013 1:12 PM EDT Narrative 04/11/2013 2:21 PM EDT Examination FINGER MIN 2 VIEWS/LEFT Clinical History left small finger proximal phalanx fracture Comparison [id number]. Technique 3 views. Findings There has been further interval healing of the left 5th proximal phalanx fracture with continued sclerosis at the fracture site which is now barely visible. ??Anatomic alignment is normal. ??No complications are identified. Impression Continued healing of left 5th proximal phalanx fracture. Procedure Note Lila Booker MD - 04/11/2013 Examination FINGER MIN 2 VIEWS/LEFT Clinical History left small finger proximal phalanx fracture Comparison [id number]. Technique 3 views. Findings There has been further interval healing of the left 5th proximal phalanx fracture with continued sclerosis at the fracture site which is now barely visible. Anatomic alignment is normal. No complications are identified. Impression Continued healing of left 5th proximal phalanx fracture. Rohan Duarte MD IMG DX ORDERABLES documented in this encounter Visit Diagnoses Diagnosis Fracture of left small finger, proximal, closed- Primary Closed fracture of middle or proximal phalanx or phalanges of hand Fracture of left small finger, proximal, closed Closed fracture of middle or proximal phalanx or phalanges of hand documented in this encounter Care Teams Wound Care Rn Relationship Specialty Start Date End Date Alek Esparza MD [address] [place] [phone] PCP - General 09/03/10 04/05/23 documented as of this encounter
--- OUTSIDE RECORDS SUMMARY | 2024-08-29 14:16 | XMS_ITS | Encounter Summary ---
Author Organization [facility] Address [facility] [place] [address] Care Team Providers Care Leadership Development Consultant Name Role Phone Alek Esparza MD Primary Care Provider [phone] Encounter Details Date Type Department Care Team (Late st Contact Info) Description 02/08/2013 12:57 PM EDT Anesthesia Event [place] [phone] Francis Michael MD [facility] [place] [address] Michael Cheema MD [facility] [place] [address] Anesthesia Record Procedure Summary Procedure Name Responsible Anesthesiologist Anesthesia Start Time Anesthesia Stop Time CLOSED TREATMENT FX PHALANX OR PHALANGES (WRVU 1.17) (Left: Finger) Francis Michael MD 02/08/13 1257 02/08/13 1351 Events Date Time Event Comment 02/08/2013 1130 1257 Start 1307 AN Verify 1307 An Start Data 1310 An Induction 1312 An Intubation 1315 Anesthesia Ready 1343 Extubation/LMA Out 1344 an stop data 1351 Stop Meds Name Total propofol 400 mg propofol INF 73.33 mg dexAMETHasone 8 mg lidocaine IV 50 mg ceFAZolin (ANCEF) 2,000 mg in sodium chl oride 0.9% 56.06 mL 2 g ondansetron 8 mg lactated ringers infusion 1,000 mL 0 mL * Agents Name O2 Air N2O Sevoflurane (et) * Blood No blood administrations on file. Lines, Drains, and Airways Type Details Placement Removal Incision 02/08/13; fifth finger; 06/09/22 (LDA cleanup utility RA#[id number]); 1715 (LDA cleanup utility RA#[id number]) 02/08/13 0000 by Loida Wade RN 06/09/22 1715 by Maritza Burnham (RETIRED) Peripheral IV Line - Single Lumen 02/08/13; 1117; 02/08/13; 1425 02/08/13 1117 by Arely Alberts RN 02/08/13 1425 by Arely Alberts RN (RETIRED) Non-Surgical Airway Mask Ventilation: Easy (1); LMA Type: [place]; LMA Size: 4; Removal Date: 02/08/13; Removal Time: 1343 02/08/13 1312 by Loren Harrell CRNA 02/08/13 1343 by Loren Harrell CRNA documented in this encounter Social History Tobacco [...] OR Notes * Anesthesia Postprocedure Evaluation - Francis Michael MD - 02/08/2013 2:03 PM EDT Patient: Enoc Esteban Procedure(s) Performed: Procedure(s): CLOSED TREATMENT FX PHALANX OR PHALANGES Actual Anesthetic: general Patient location: PACU Post-op pain: Adequate analgesia Post-op nausea: no nausea or vomiting Last Vitals: Filed Vitals: 02/08/13 1348 BP: 123/83 Pulse: 67 Temp: 36.8 ??C (98.2 ??F) Resp: 18 Post-op cardiovascular and respiratory status: is stable Level of consciousness: awake, alert and oriented Complications: no apparent complications and tolerated the procedure well Fluid Status: normal * Anesthesia Preprocedure Evaluation - Francis Michael MD - 02/08/2013 11:18 AM EDT Images from the original note were not included. Pre-Anesthesia Evaluation for: Enoc Esteban a 53 y.o. male. Procedure(s): CLOSED TREATMENT FX PHALANX OR PHALANGES Patient Active Problem List Diagnoses ??? Fracture of left small finger, proximal, closed ??? HTN (hypertension) ??? Tophaceous gout ??? Hyperuricemia ??? Mild vitamin D deficiency ??? Asthma ??? TYRON (obstructive sleep apnea) No past medical history on file. No past surgical history on file. History Substance Use Topics ??? Smoking status: Never Smoker ??? Smokeless tobacco: Never Used ??? Alcohol Use: 9.0 oz/week 15 Cans of beer per week No Known Allergies Medications: MAR and/or home medications have been reviewed. Physical Exam: There were no vitals filed for this visit. There is no height or weight on file to calculate BMI. Airway Assessment: Mallampati: II TM distance: >3 FB Neck ROM: full Cardiovascular Assessment: Rhythm: regular Rate: normal Pulmonary Assessment: Dental Assessment: - normal exam (+) upper dentures and lower dentures Comment: Partial upper and lower dentures [facility] Assessment: IV access: Peripheral line Anesthesia Plan: ASA 3 general, with a(n) intravenous induction Anesthetic risks, benefits, and alternatives discussed in detail with patient who appears to understand and agree. Questions answered and consent form signed. Plan #4 LMA and digital block by surgeon in OR Region - Other Informed Consent: Anesthetic plan and risks discussed with patient. Plan discussed with [[facility]. Assessment: documented in this encounter Plan of Treatment Not on file documented as of this encounter Visit Diagnoses Not on filedocumented in this encounter Administered Medications Inactive Administered Medications - up to 3 most recent administrations Medication Order MAR Action Action Date Dose Rate Site ceFAZolin (ANCEF) 2,000 mg in sodium chloride 0.9% 56.06 mL 2,000 mg (2 g), Intravenous, ONCE, 1 dose, On Thu02/08/13 at 1130, Administer over 30 Minutes, To be administered upon arrival to the OR within one hour prior to incision., Day of Surgery (Day of Procedure), Indication for (Active or Suspected): Prophylaxis Given 02/08/2013 12:57 PM EDT 2 g dexamethasone (DECADRON) injection PRN, Starting on 02/08/13 at 1318, Until 02/08/13 at 1351, Anesthesia Intra-op, Routine Given 02/08/2013 1:18 PM EDT 8 mg lidocaine (PF) (XYLOCAINE) 100 mg/5 mL (2 %) injection PRN, Starting on 02/08/13 at 1310, Until 02/08/13 at 1351, Anesthesia Intra-op, Routine Given 02/08/2013 1:10 PM EDT 50 mg ondansetron (ZOFRAN) injection PRN, Starting on 02/08/13 at 1333, Until 02/08/13 at 1351, Nausea, Anesthesia Intra-op, Routine Given 02/08/2013 1:33 PM EDT 8 mg propofol (DIPRIVAN) 10 mg/mL bolus injection (Anesthesia) PRN, Starting on 02/08/13 at 1310, Until 02/08/13 at 1351, Anesthesia Intra-op Given 02/08/2013 1:10 PM EDT 400 mg propofol (DIPRIVAN) infusion CONTINUOUS PRN, Starting on 02/08/13 at 1319, Until 02/08/13 at 1351, Anesthesia Intra-op, Routine New Bag 02/08/2013 1:19 PM EDT 30 mcg/kg/min 20 mL/hr documented in this encounter Care Teams Leadership Development Consultant Relationship Specialty Start Date End Date Alek Esparza MD [address] [place] [phone] PCP - General 09/03/10 04/05/23 documented as of this encounter
--- OUTSIDE RECORDS SUMMARY | 2024-08-29 14:16 | XMS_ITS | Encounter Summary ---
Author Organization [facility] Address [facility] [place] [address] Care Team Providers Care Value Advisor Name Role Phone Alek Esparza MD Primary Care Provider [phone] Reason for Visit * Reason Comments Medication Refill Encounter Details Date Type Department Care Team (Late st Contact Info) Description 07/28/2013 [place] [address] Alvaro Cam MD [facility] [place] [address] Social History Tobacco Use Types Packs/Day Years [...] on filedocumented in this encounter Care Teams Value Advisor Relationship Specialty Start Date End Date Alek Esparza MD [address] [place] [phone] PCP - General 09/03/10 04/05/23 documented as of this encounter
--- OUTSIDE RECORDS SUMMARY | 2024-08-29 14:16 | XMS_ITS | Encounter Summary ---
Author Organization [facility] Address [facility] [place] [address] Care Team Providers Care Disability Specialist Name Role Phone Alek Esparza MD Primary Care Provider Reason for Visit * Reason Comments Gout Topaceous Encounter Details Date Type Department Care Team (Late st Contact Info) Description 12/01/2012 2:45 PM EST Follow-Up Rheumatology at [place] [phone] Alvaro Cam MD [facility] [place] [address] Gout; Vitamin d deficiency; Joint pain Discharge Disposition: Home Social History Tobacco Use Types Packs/Day Years Used Date Smoking Tobacco: Never Sex and Gender Information Value Date Recorded Sex Assigned at Not on file Gender Identity Not on file Sexual Orientation Not on file documented as of this encounter Last Filed Vital Signs Vital Sign Reading Time Taken Comments Blood Pressure 150/90 12/01/2012 2:46 PM EST Pulse 81 12/01/2012 2:46 PM EST Temperature 36.3 ??C (97.4 ??F) 12/01/2012 2:46 PM ES T Respiratory Rate - - Oxygen Saturation 98% 12/01/2012 2:46 PM EST Inhaled Oxygen Concentration - - Weight 115.3 kg (254 lb 3.2 oz) 12/01/2012 2:46 PM EST Height 177.8 cm (5' 10) 12/01/2012 2:46 PM EST Body Mass Index 36.47 12/01/2012 2:46 PM EST documented in this encounter Patient Instructions * Patient Instructions* Alvaro Cam MD - 12/01/2012 2:58 PM EST 1) Discontinue ibuprofen. 2) Continue daily prednisone, 10 mg. 3) Start daily losartan, 50 mg. 4) Start daily Uloric, 40 mg. 5) Check labs today. 6) Return to follow up in two months. documented in this encounter Progress Notes * Alvaro Cam MD - 12/01/2012 2:52 PM EST REASON FOR VISIT: Follow up for tophaceous gout and hyperuricemia. INTERVAL HISTORY: The pt was a 52-year-old male, who returned for a follow up of tophaceous gout and hyperuricemia. The pt noted that since his last visit on Aug 31, 2012, he did start daily allopurinol, 300mg for his hyperuricemia. He tolerated allopurinol well initially, only to develop a rash about twomonths later. He was subsequently instructed to discontinue allopurinol, and start daily prednisone, 10 mg. His rash improved slowly after he discontinued allopurinol. He was since on daily prednisone. While on daily prednisone, his joint pain had largely resolved. 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 It was recommended that he be monitored for now. Otherwise, his review of systems was negative for fever, chest pain, shortness of breath, nausea, dysuria, headache, polydipsia, or blood clots. PAST MEDICAL HISTORY: Hypertension [...] with his partner. 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 FAMILY HISTORY: Mother - Unknown, alive at the age of 66. Father - Prostate cancer, alive at the age of 68. PHYSICAL EXAMINATION: Vitals 12/01/2012 BP 150/90 Pulse 81 Temp 97.4 Temp src Oral Height 177.8 cm Weight 115.304 kg BMI (Calculated) 36.6 BSA (Calculated - sq m) 2.39 SpO2 98 General - Alert, co-operative, no apparent [...] joints; + large right olecranon tophus nodule; no joint tenderness on palpation; no signs [...] skin or at all nail margins, sclerodactyly, orbruises. Neuro - No sensory or motor function deficit, DTR = + 2/4 bilaterally. IMPRESSION: 1) Tophaceous gout and 2) marked hyperuricemia in a 52-year-old male. Because of his tophaceous gout and marked hyperuricemia, the pt is a candidate for life-long therapy with a uricosuric agent. The pt did not tolerate allopurinol due to rash, he will be put on febuxostat for maintenancetherapy. He will undergo repeat laboratory studies today. 3) Moderate vitamin D deficiency. The pt will undergo repeat laboratory studies today. 4) Hypertension. The pt has a diagnosis of hypertension, but he is currently not on anti-hypertensive therapy. He is a candidate for losartan, which is uricosuric agent, for blood pressure control. He will also need to discontinue ibuprofen. RECOMMENDATIONS: 1) Discontinue ibuprofen. 2) Continue daily prednisone, 10 mg. 3) Start daily losartan, 50 mg. 4) Start daily Uloric, 40 mg. 5) Check labs today. 6) Return to follow up in two months. Alvaro Cam MD, PhD documented in this encounter Plan of Treatment Not on file documented as of this encounter Procedures Procedure Name Priority Date/Time Associated Diagnosis Comments LYME IGG & IGM ANTIBODY Routine 12/01/2012 3:24 PM EST Joint pain VITAMIN D, 25-HYDROXY Routine 12/01/2012 3:24 PM EST Vitamin d deficiency URIC ACID Routine 12/01/2012 3:24 PM EST Gout documented in this encounter Results * (ABNORMAL) VIT D Total Evaluation (12/01/2012 3:24 PM EST) Vitamin D Total 25 OH 17(L) 30 - 100 ng/mL [facility] Comment: Deficient <10 ng/mL Insufficient 10 [...] D concentration is reported. Blood specimen (specimen) 12/01/2012 3:24 PM EST 12/01/2012 3:27 PM EST Narrative Resulting Agency Comment Spec In Lab Alvaro Cam MD CHEMISTRY ORDERABLES Performing Organization Address City/[facility]/ZIP Co de Phone Number GHAZALA ELAM * Lyme IgG & IgM Antibody (12/01/2012 3:24 PM EST) Lyme Antibody Neg Neg [facility]OTENEN[facility]UM Blood specimen (specimen) 12/01/2012 3:24 PM EST 12/02/2012 8:17 AM EST Narrative Resulting Agency Comment Spec In Lab Alvaro Cam MD IMMUNOLOGY ORDERABLE S Performing Organization Address [facility] Co de Phone Number GHAZALA ELAM * (ABNORMAL) Uric acid (12/01/2012 3:24 PM EST) Uric Acid 9.5(H) 3.5 - 8.5 mg/dL [facility] WOOTENENNIUM Blood specimen (specimen) 12/01/2012 3:24 PM EST 12/01/2012 3:27 PM EST Narrative Resulting Agency Comment Spec In Lab Alvaro Cam MD CHEMISTRY ORDERABLES Performing Organization Address [facility] Co de Phone Number GHAZALA ELAM documented in this encounter Visit Diagnoses Diagnosis Gout Gout, unspecified Vitamin D deficiency Unspecified vitamin D deficiency Joint pain Pain in joint, site unspecified documented in this encounter Care Teams Disability Specialist Relationship Specialty Start Date End Date Alek Esparza MD [address] [place] [phone] PCP - General 09/03/10 04/05/23 documented as of this encounter
--- OUTSIDE RECORDS SUMMARY | 2024-08-29 14:16 | XMS_ITS | Encounter Summary ---
Author Organization Count Includes [facility] Address [facility] [place] [address] Care Team Providers Care Applied Research Director Name Role Phone Alek Esparza MD Primary Care Provider [phone] Encounter Details Date Type Department Care Team (Latest Contact Info) Description 04/11/2013 12:50 PM EDT - 04/11/2013 11:59 PM EDT Hospital Encounter XRay at [address] [place] [phone] Fracture of left small finger, proximal, closed [...] by mouth nightly as needed. predniSONE (DELTASONE) 5 mg tablet Take 1 tablet by mouth daily. 90 tablet 3 04/11/2013 04/27/2013 febuxostat (ULORIC) tablet Take 2 tablets by [...] Comments XR FINGER MINIMUM 2 VIEWS Routine 04/11/2013 1:12 PM EDT Fracture of left small finger, proximal, closed documented in this encounter Results * XR finger minimum 2 views (04/11/2013 1:12 PM EDT) Anatomical Region Laterality Modality Hand N/A Radiographic Caro ging 04/11/2013 1:12 PM EDT Narrative 04/11/2013 2:21 PM EDT Examination FINGER MIN 2 VIEWS/LEFT Clinical History left small finger proximal phalanx fracture Comparison [id number]. Technique 3 views. Findings There has been [...] left small finger proximal phalanx fracture Comparison [id number]. Technique 3 views. Findings There has been [...] hand documented in this encounter Care Teams Applied Research Director Relationship Specialty Start Date End Date Alek Esparza MD [address] [place] [phone] PCP - General 09/03/10 04/05/23 documented as of this encounter
--- OUTSIDE RECORDS SUMMARY | 2024-08-29 14:16 | XMS_ITS | Encounter Summary ---
Author Organization [facility] Address [facility] [place] [address] Care Team Providers Care Gas Treater Name Role Phone Alek Esparza MD Primary Care Provider [phone] Encounter Details Date Type Department Care Team (Latest Contact Info) Description 03/09/2013 9:07 AM EDT - 03/09/2013 11:59 PM EDT Hospital Encounter XRay at [address] [place] [phone] Fracture of left small finger, proximal, closed [...] Comments XR FINGER MINIMUM 2 VIEWS Routine 03/09/2013 9:17 AM EDT Fracture of left small finger, proximal, [...] hand documented in this encounter Care Teams Gas Treater Relationship Specialty Start Date End Date Alek Esparza MD [address] [place] [phone] PCP - General 09/03/10 04/05/23 documented as of this encounter
--- OUTSIDE RECORDS SUMMARY | 2024-08-29 14:16 | XMS_ITS | Encounter Summary ---
Author Organization [facility] Address [facility] [place] [address] Care Team Providers Care Bulk Filler Name Role Phone Alek Esparza MD Primary Care Provider [phone] Encounter Details Date Type Department Care Team (Latest Contact Info) Description 03/15/2013 12:00 PM EDT - 03/15/2013 11:59 PM EDT Hospital Encounter XRay at [address] [place] [address] Gout; Joint swelling Social History Tobacco Use Types Packs/Day Years [...] needed. predniSONE (DELTASONE) 5 mg tablet Take 2 [...] Name Priority Date/Time Associated Diagnosis Comments XR FOOT MIN 3 VIEWS BILAT Routine 03/15/2013 12:36 PM EDT Gout Joint swelling documented in this encounter Results * XR feet bilateral minimum 3 views (03/15/2013 12:36 PM EDT) Anatomical Region Laterality Modality Foot Bilateral Radiographic Caro ging 03/15/2013 12:3 6 PM EDT Narrative 03/15/2013 1:28 PM EDT Examination BILATERAL FEET MINIMUM 3 VIEWS Clinical History acute right first toe swelling. ??? gout vs osteoarthritis Comparison None. Technique 3 views each foot. Findings Right foot: ??There are extensive soft tissue calcifications about the 1st metatarsophalangeal joint most consistent with gout. ??Adjacent soft tissue swelling. ??Joint spaces appear well preserved. ??Moderate diffuse soft tissue swelling present about the foot. ??No significant osteoarthritis or hallux valgus. ?? Left foot: Milder soft tissue swelling and small calcifications present about the left foot 1st metatarsophalangeal joint. There is minimal soft tissue swelling about the remainder of the foot. ??Joint spaces appear preserved. ??No sign of joint space narrowing, cortical erosions common or significant osteoarthritis. Impression Marked right 1st MTP joint calcifications and milder degree of left foot 1st MTP calcifications, most consistent with gout. No sign of joint space involvement. Procedure Note Darci Veloz MD - 03/15/2013 Examination BILATERAL FEET MINIMUM 3 VIEWS Clinical History acute right first toe swelling. ? gout vs osteoarthritis Comparison None. Technique 3 views each foot. Findings Right foot: There are extensive soft tissue calcifications about the 1st metatarsophalangeal joint most consistent with gout. Adjacent soft tissue swelling. Joint spaces appear well preserved. Moderate diffuse softtissue swelling present about the foot. No significant osteoarthritis or hallux valgus. Left foot: Milder soft tissue swelling and small calcifications presentabout the left foot 1st metatarsophalangeal joint. There is minimal soft tissue swelling about the remainder of the foot. Joint spaces appear preserved.No sign of joint space narrowing, cortical erosions common or significant osteoarthritis. Impression Marked right 1st MTP joint calcifications and milder degree of left [id number] MTP calcifications, most consistent with gout. No sign of joint space involvement. Alvaro Cam MD IMG DX ORDERABLES documented in this encounter Visit Diagnoses Diagnosis Gout Gout, unspecified Joint swelling Effusion of joint, site unspecified documented in this encounter Care Teams Bulk Filler Relationship Specialty Start Date End Date Alek Esparza MD [address] [place] [phone] PCP - General 09/03/10 04/05/23 documented as of this encounter
--- OUTSIDE RECORDS SUMMARY | 2024-08-29 14:17 | XMS_ITS | Encounter Summary ---
Author Organization [facility] Address [facility] [place] [address] Care Team Providers Care Financial Analyst Intern Name Role Phone Astrid Grier MD Primary Care Provider Encounter Details Date Type Department Care Team (Late st Contact Info) Description 12/25/2008 Orders [place] [address] Joao Perdue MD [facility] [place] [address] Social History Tobacco Use Types Packs/Day Years Used Date Smoking Tobacco: Never Assessed [facility] Inpatient Questions Answer Date Recorded Does [...] Priority Date/Time Associated Diagnosis Comments SURGICAL PATHOLOGY REPORT Routine 12/25/2008 11:13 AM EDT documented in this encounter Results * Surgical Pathology Report (12/25/2008 11:13 AM EDT) Surgical Pathology Report [id number] ? Location: [facility]; 0503; B The signing pathologist has (i) examined the relevant preparation(s) for the specimen(s) and (ii) rendered or confirmed the diagnosis(es). . ?Pathology Surgical Pathology Final Report Clinical Information Specimen Submitted: A - Disc C5-6, C6-7: C5-6, C6-7 Clinical History: Not provided Clinical Diagnosis: C5-6, C6-7 HNP Gross Description Labeled/Fixativ e: ? Disc C5-6, C6-7; fresh. Quantity/Size: ?Multiple, aggregating 2.7 x 1.7 x 0.8 cm. Tissue Description: ?? Dense, hawkins-white, friable fragments. Sections/Proces sing: ??No sections are submitted. ??aje/PPS Diagnosis Intervertebral disc, C5-6, C6-7. ?? Gross surgical pathology examination. CR-0 12/26/08 AJE 12/26/08 Verified by: ? Micah WHELAN, [facility] ?Pathologist ?(Electronic Signature) The attending pathologist whose signature appears on this report has reviewed all diagnostic slides and has edited the gross and/or microscopic portion of the report in rendering the final pathologic diagnosis. GHAZALA ELAM 12/25/2008 11:1 3 AM EDT Joao Perdue MD PATHOLOGY/CYTOLOGY O RDERABLES GHAZALA ELAM documented in this encounter Visit Diagnoses Not on filedocumented in this encounter Care Teams Financial Analyst Intern Relationship Specialty Start Date End Date Astrid Grier MD [address] [place] [address] PCP - General Family Medicine 04/06/23 documented as of this encounter
--- OUTSIDE RECORDS SUMMARY | 2024-08-29 14:17 | XMS_ITS | Encounter Summary ---
Author Organization [facility] Address [facility] [place] [address] Care Team Providers Care Machine Operator Hay Stacker Name Role Phone Alek Esparza MD Primary Care Provider Reason for Referral * Surgical (Routine) - Closed Specialty Diagnoses / Procedures Referred By Contyosvany sands Referred To Contact General Surgery Diagnoses Nodule, subcutaneous Alvaro Cam MD [facility] [place] [address] [facility] [place] [place] Gen Surgery [address] [place] [address] Referral ID Status Reason Start Date Expiration Date V isits Requested Visits Authorized [id number] Closed Consult, Test & Treat 08/04/2012 01/31/2013 1 1 Reason for Visit * Reason Comments Myalgia/myositis Abnormal Lab + RF Encounter Details Date Type Department Care Team (Late st Contact Info) Description 08/04/2012 9:05 AM EDT [place] [address] Alvaro Cam MD [facility] [place] [address] Joint pain (Primary Dx); Nodule, subcutaneous Discharge Disposition: Home Social History Tobacco Use Types Packs/Day Years Used Date Smoking Tobacco: Never Sex and Gender Information Value Date Recorded Sex Assigned at Not on file Gender Identity Not on file Sexual Orientation Not on file documented as of this encounter Last Filed Vital Signs Vital Sign Reading Time Taken Comments Blood Pressure 134/90 08/04/2012 9:09 AM EDT Pulse 100 08/04/2012 9:09 AM EDT Temperature 36.7 ??C (98 ??F) 08/04/2012 9:09 AM EDT Respiratory Rate - - Oxygen Saturation 98% 08/04/2012 9:09 AM EDT Inhaled Oxygen Concentration - - Weight 110.9 kg (244 lb 8 oz) 08/04/2012 9:09 AM EDT Height 177.8 cm (5' 10) 08/04/2012 9:09 AM EDT Body Mass Index 35.08 08/04/2012 9:09 AM EDT documented in this encounter Patient Instructions * Patient Instructions* Alvaro Cam MD - 08/04/2012 9:46 AM EDT 1) Start daily prednisone, 15 mg. 2) Check labs today. 3) Get X-ray of the hands and elbows today. 4) Refer to General Surgery. 5) Return to follow up in four weeks. documented in this encounter Progress Notes * Alvaro Cam MD - 08/04/2012 9:21 AM EDT REASON FOR VISIT: Consultation for multiple joint pain. HISTORY OF PRESENT ILLNESS: The pt was a 52-year-old male, who presented for a consultation of multiple joint pain upon request of his primary care physician Dr. Alek Esparza. The pt noted that he initially developed pain and stiffness throughout his whole body about one year ago. About two months ago, he woke up with shoulder pain, which spread to other joints. The joint pain had been persistent since then, and he had difficulty forming tight vp foundation to open bottles. In addition, he also developed muscle weakness, such that he had difficulty getting up from a chair. Overall, the pain was worst in his neck, fo llowed by the arms, shoulders, low back, knees, and then hips. The joint pain was worst in the morning, and tended to get better as the day progressed. He also complained of joint swelling in his hands. He was subsequently evaluated at a local ED for his joint pain and swelling in May 2012. It was thought that his joint symptoms were related to Lyme disease even though his Lyme antibodies were negative. He was put on a course of doxycyline for treatment. He did not feel significant improvement in his joint pain since he finished doxycycline. He was also using ibuprofen or Vicodin for symptomatic control. Laboratory studies obtained at his primary care physician's office on May 18, 2012 were normal for chemistry, CBC with differential, LFT, CK, ESR, and TSH. He was seropositive for RF with borderline titer of 20. He was seronegative for Lyme antibodies. He was referred to the [facility] at [facility] for further evaluation. PAST MEDICAL HISTORY: Hypertension Asthma Lafleur's lung Obstructive sleep apnea S/p [...] living with his partner. 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 FAMILY HISTORY: Mother - Unknown, alive at the age of 66. Father - Prostate cancer, alive at the age of 68. REVIEW OF SYSTEMS: Constitutional - + Fatigue since January 2012 (8 hours of interrupted sleep due to pain); no weight change, fever, chills, or night sweat. Cardiovascular - No chest pain, palpitations, or leg swelling. Pulmonary - No dyspnea on exertion, shortness of breath, cough, orthopnea, hemoptysis, or PND. Gastrointestinal - Normal appetite; no heartburn, acid reflux, abdominal pain, nausea, vomiting, diarrhea, or dark/bloody stool. Genitourinary - No dysuria, incontinence, frequency, or nocturia. Endocrine - No thyroid dysfunction, diabetes, heat/cold intolerance, or polydipsia. Hematological - No anemia, easy bruising, or blood clots. Musculoskeletal - + Neck pain, + multiple joint pain and stiffness, + joint swelling, + morning stiffness of multiple joints; no low back pain or Raynaud's phenomenon. Dermatological - No rash, dry eyes, dry mouth, oral ulcers, hair loss, or external lesions. Neurological - + Syncope x once; no headache, numbness/tingling sensation, lightheadedness, dizziness, blurry vision, or seizure. PHYSICAL EXAMINATION: Vitals 08/04/2012 SYSTOLIC 134 DIASTOLIC 90 PULSE 100 TEMPERATURE 98 HEIGHT 70 in WEIGHT 244 lbs 8 oz BODY MASS INDEX 35.08 kg/m2 Pulse Oximetry 98 General - Alert, co-operative, no apparent distress, oriented x 3. HEENT - PERRL, EOMI bilaterally, conjunctiva pink, no sclerae icterus or malar rash; oropharynx moist and non-erythematous. Neck - Supple, + Decrease in range [...] DTR = + 2/4 bilaterally. IMPRESSION: 1) Polyarthritis and 2) large right olecranon nodule. 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 His clinical history and physical examination revealed no features of Lyme disease. His response to doxycycline is likely related to mild anti-inflammatory effects of doxycycline. He will undergolaboratory studies to evaluate for his serum urate level. He will undergo radiographic studies to evaluate for erosive disease. He will be referred to the General Surgery for resection of the nodule and confirmation the nature of the nodule to be tophus. 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 There is no clinical significance for his positive RF. Nevertheless, he will undergo serological studies today. RECOMMENDATIONS: 1) Start daily prednisone, 15 mg. 2) Check labs today. 3) Get X-ray of the hands and elbows today. 4) Refer to General Surgery. 5) Return to follow up in four weeks. Alvaro Cam MD, PhD documented in this encounter Plan of Treatment Scheduled Referrals Name Type Priority Associated Diagnoses Orde r Schedule Referral to General Surgery Outpatient Referral Routine Nodule, subcutaneous Ordered: 08/04/2012 documented as of this encounter Procedures Procedure Name Priority Date/Time Associated Diagnosis Comments URINALYSIS DIPSTICK Routine 08/04/2012 1 0:54 AM EDT Joint pain FERRITIN Routine 08/04/2012 10:26 AM EDT Joint pain HCV QUANT Routine 08/04/2012 10:24 AM EDT Joint pain INTERLEUKIN-6 Routine 08/04/2012 10:24 AM EDT Joint pain TUMOR NECROSIS FACTOR-ALPHA Routine 08/04/2012 10:24 AM EDT Joint pain ANTI-CYCLIC CITRULLINATED PEPTIDE AB Routine 08/04/2012 10:24 AM EDT Joint pain DIFFERENTIAL, AUTOMATED Routine 08/04/2012 10:24 AM EDT IRON AND TIBC Routine 08/04/2012 10:24 AM EDT HEPATITIS A ANTIBODY, TOTAL Routine 08/04/2012 10:24 AM EDT Joint pain CRYOGLOBULIN Routine 08/04/2012 10:24 AM EDT Joint pain HEPATITIS B CORE ANTIBODY, TOTAL Routine 08/04/2012 10:24 AM EDT Joint pain HEPATITIS C RNA, QUANTITATIVE, PCR Routine 08/04/2012 10:24 AM EDT Joint pain VITAMIN D, 25-HYDROXY Routine 08/04/2012 10:24 AM EDT Joint pain HEPATITIS B SURFACE ANTIBODY Routine 08/04/2012 10:24 AM EDT Joint pain HEPATITIS B SURFACE ANTIGEN Routine 08/04/2012 10:24 AM EDT Joint pain SEDIMENTATION RATE Routine 08/04/2012 10 :24 AM EDT CBC (WITH DIFF) Routine 08/04/2012 10:24 AM EDT Joint pain RHEUMATOID FACTOR, QUANT Routine 08/04/2012 10:24 AM EDT Joint pain CRP, CARDIAC RISK (HS CRP) Routine 08/04/2012 10:24 AM EDT Joint pain URIC ACID Routine 08/04/2012 10:24 AM EDT Joint pain TSH Routine 08/04/2012 10:24 AM EDT Joint pain TESTOSTERONE, TOTAL Routine 08/04/2012 1 0:24 AM EDT Joint pain PROTEIN ELECTROPHORESIS, SERUM Routine 08/04/2012 10:24 AM EDT Joint pain CK Routine 08/04/2012 10:24 AM EDT Joint pain HEPATIC FUNCTION PANEL Routine 2 10:24 AM EDT BASIC METABOLIC PANEL Routine 08/04/2012 10:24 AM EDT Joint pain documented in this encounter Results * (ABNORMAL) Urinalysis without microscopic (08/04/2012 10:54 AM EDT) Glucose, Urine Dipstick Negative Negative mg/dL [facility] MILLENNIUM Protein, Urine Dipstick Negative mg/dL CERNER MILLENNIUM Bilirubin, Urine Dipstick Negative Negative mg/dL CERNER MILLENNIUM Urobilinogen, Urine Dipstick Normal mg/dL CERNER MILLENNIUM pH, Urn (dipstick) 5.5 5.0 - 8.0 [facility] MILLENNIUM Blood, Urine Dipstick Negative mg/dL CERNER MILLENNIUM Ketone, Urine Dipstick Negative mg/dL CERNER MILLENNIUM Nitrite, Urine Dipstick Negative CERNER MILLENNIUM Leukocytes, Urine Dipstick Negative mcL [facility] MILLENNIUM Appearance, Urine Dipstick Hazy(A) Clear CERNER MILLENNIUM Specific [place] Urine Automated 1.009 1.002 - 1.030 CERNER MILLENNIUM Color, Urine Dipstick Yellow Yellow [facility]ER MILLENNIUM Urine specimen (specimen) 08/04/2012 10:54 AM EDT 08/04/2012 11:01 AM EDT Narrative Resulting Agency Comment Spec In Lab Alvaro Cam MD URINE ORDERABLES [facility] * XR elbow 3 view complete (08/04/2012 [...] effusion. Alvaro Cam MD IMG DX ORDERABLES * XR hands bilateral (08/04/2012 10:53 AM EDT) Anatomical Region Laterality Modality Hand Bilateral Radiographic Caro ging 08/04/2012 10:5 3 AM EDT Narrative 08/04/2012 10:57 AM EDT Examination BILATERAL HANDS/BILAT Clinical History bilateral hand swelling. ??? RA Comparison None Technique Findings No erosions or other findings of rheumatoid arthritis are seen. ??Incidentally noted are mild degenerative changes in the 1st carpometacarpal joints bilaterally. Impression No evidence of rheumatoid arthritis. Procedure Note Teofilo Mead MD - 08/04/2012 Examination BILATERAL HANDS/BILAT Clinical History bilateral hand swelling. ? RA Comparison None Technique Findings No erosions or other findings of rheumatoid arthritis are seen.Incidentally noted are mild degenerative changes in the 1st carpometacarpal joints bilaterally. Impression No evidence of rheumatoid arthritis. Alvaro Cam MD IMG DX ORDERABLES * Ferritin (08/04/2012 10:26 AM EDT) [facility] Ferritin 271 30 - 400 ng/mL [facility] Comment: Pediatric reference ranges not verified at [facility], interpret with caution. Reference ranges for females greater than 50 years of age approach values for men, i.e., 30-400 ng/mL. Blood specimen (specimen) 08/04/2012 10:26 AM EDT 08/04/2012 10:35 AM EDT Narrative Resulting Agency Comment Spec In Lab Alvaro Cam MD CHEMISTRY ORDERABLES [facility]EN[facility] * (ABNORMAL) DIFFERENTIAL, AUTOMATED (08/04/2012 10:24 AM EDT) Neutrophil % 73.3(H) 34.0 - 71.0 % CERNER MILLENNIUM Neutrophil Absolute 6.77(H) 1.50 - 6.30 x10(3)/mc L CERNER MILLENNIUM Lymph % 18.7(L) 19.0 - 53.0 % CERNER MILLENNIUM Lymphocytes Abs 1.7 1.0 - 3.6 x10(3)/mc L CERNER MILLENNIUM Monocyte % 5.8 4.0 - 13.0 % CERNER MILLENNIUM Monocyte Abs 0.5 0.2 - 1.0 x10(3)/mc L CERNER MILLENNIUM Eos % 1.0 0.0 - 7.0 % CERNER MILLENNIUM Eosinophils Abs 0.1 0.0 - 0.5 x10(3)/mc L CERNER MILLENNIUM Basophil % 1.0 0.0 - [...] Absolute 0.02 0.00 - 0.05 x10(3)/mc L [facility] MILLENNIUM Blood specimen (specimen) 08/04/2012 10:24 AM EDT 08/04/2012 10:35 AM EDT Alvaro Cam MD HEMATOLOGY ORDERABLE S [facility] MILLENNIUM * HEPATIC FUNCTION PANEL (08/04/2012 10:24 AM EDT) Protein, Total 7.2 6.4 - 8.3 gm/dL [facility] MILLENNIUM Albumin 4.4 3.2 - 5.2 gm/dL [facility] MILLENNIUM Aspartate Aminotransferase 17 0 - 39 unit/L [facility] MILLENNIUM Alanine Aminotransferase 17 0 - 55 unit/L [facility] MILLENNIUM Alkaline Phosphatase 61 40 - 120 unit/L [facility] MILLENNIUM Bilirubin, Total 0.3 0.2 - 1.3 mg/dL [facility] MILLENNIUM Bilirubin, Direct 0.1 0.0 - 0.3 mg/dL [facility] MILLENNIUM Blood specimen (specimen) 08/04/2012 10:24 AM EDT 08/04/2012 10:35 AM EDT Narrative Resulting Agency Comment Spec In Lab Alvaro Cam MD CHEMISTRY ORDERABLES Performing Organization Address [facility] Co de Phone Number [facility] * IRON AND TIBC (08/04/2012 10:24 AM EDT) Iron 133 45 - 160 mcg/dL CERNER MILLENNIUM TIBC 308 250 - 450 mcg/dL [facility] MILLENNIUM Iron Saturation 43 20 - 50 % [facility] MILLEN[facility]UM Blood specimen (specimen) 08/04/2012 10:24 AM EDT 08/04/2012 10:35 AM EDT Narrative Resulting Agency Comment Spec In Lab Alvaro Cam MD CHEMISTRY ORDERABLES [facility] MILLENNI[facility] * SEDIMENTATION RATE (08/04/2012 10:24 AM EDT) Sedimentation Rate Automated 6 0 - 15 mm/hr [facility] MILLENNIUM Blood specimen (specimen) 08/04/2012 10:24 AM EDT 08/04/2012 10:35 AM EDT Narrative Resulting Agency Comment Spec In Lab Alvaro Cam MD HEMATOLOGY ORDERABLE S Performing Organization Address City/State/[facility] de Phone Number [facility] * HCV QUANT (08/04/2012 10:24 AM EDT) [facility] HCV Viral Load <43 IU/mL [facility] HCV Viral Load Result: < 43 (Target [...] This assay is being performed in the [facility] Molecular Pathology Laboratory. Casey Barrow, Ph.D. Director, Molecular Pathology [facility] Comment: [VERIFIED DATE]08.09.12 Verified By:Analilia Frank (Electronic Signature) Blood specimen (specimen) 08/04/2012 10:24 AM EDT 08/04/2012 10:35 AM EDT Narrative Resulting Agency Comment Spec In Lab Alvaro Cam MD HEMATOLOGY ORDERABLE S Performing Organization Address [facility] de Phone Number [facility] * (ABNORMAL) Uric acid (08/04/2012 10:24 AM EDT) [facility] Uric Acid 10.4(H) 3.5 - 8.5 mg/dL [facility] Blood specimen (specimen) 08/04/2012 10:24 AM EDT 08/04/2012 10:35 AM EDT Narrative Resulting Agency Comment Spec In Lab Alvaro Cam MD CHEMISTRY ORDERABLES Performing Organization Address [facility] de Phone Number [facility] * Interleukin-6 (08/04/2012 10:24 AM EDT) [facility] Interleukin-6 (QST) 2.09 0.31 - 5.00 pg/mL [facility] Comment: This test was performed using a kit that has not been approved or cleared by the FDA. The analytical performance characteristics of this test have been determined by [facility]. This test should not be used for diagnosis without confirmation by other medically established means. Test performed by [facility], [address] [place] [id number] Blood specimen (specimen) 08/04/2012 10:24 AM EDT 08/04/2012 11:13 AM EDT Narrative Resulting Agency Comment Spec In Lab Alvaro Cam MD LAB SEND OUT ORDERAB LES Performing Organization Address [facility] Co de Phone Number [facility] * Tumor Necrosis Factor-Alpha (08/04/2012 10:24 AM EDT) Tumor Necrosis Factor 2.1 1.2 - 15.3 pg/mL [facility] Comment: TNF-alpha is not to be used as a diagnostic procedure without confirmation of the diagnosis by another established product or procedure. The reference range is intended to be used for blood samples only. Reference ranges for body fluids other than blood have not been established. This test was performed using a kit that has not been approved or cleared by the FDA. The analytical performance characteristics of this test have been determined by [facility]. This test should not be used for diagnosis without confirmation by other medically established means. Test Performed by: [facility] [address] [place] [id number] Blood specimen (specimen) 08/04/2012 10:24 AM EDT 08/04/2012 11:48 AM EDT Narrative Resulting Agency Comment Spec In Lab Alvaro Cam MD LAB SEND OUT ORDERAB LES Performing Organization Address [facility] Co de Phone Number [facility] * Hepatitis A Antibody, Total (08/04/2012 10:24 AM EDT) Hepatitis A ANTIBODY, TOTAL Negative Negative [facility] Blood specimen (specimen) 08/04/2012 10:24 AM EDT 08/04/2012 10:35 AM EDT Narrative Resulting Agency Comment Spec In Lab Alvaro Cam MD CHEMISTRY ORDERABLES Performing Organization Address [facility] Co de Phone Number [facility] * Hepatitis B Surface Antigen (08/04/2012 10:24 AM EDT) Hepatitis B Surface Antigen Negative Negative [facility] Blood specimen (specimen) 08/04/2012 10:24 AM EDT 08/04/2012 10:35 AM EDT Narrative Resulting Agency Comment Spec In Lab Alvaro Cam MD CHEMISTRY ORDERABLES Performing Organization Address [facility] de Phone Number [facility] * Hepatitis B Surface Antibody (08/04/2012 10:24 AM EDT) Hepatitis B Surface Antibody Negative [facility] Comment: Expected Results: Vaccinated: Positive Unvaccinated: Negative Please note: A positive result for this assay is consistent with a concentration of anti-HBs antibodies >10mIU/ml, which indicates that anti-HBs antibodies have been detected at levels consistent with protective immunity against HBV infection. Blood specimen (specimen) 08/04/2012 10:24 AM EDT 08/04/2012 10:35 AM EDT Narrative Resulting Agency Comment Spec In Lab Alvaro Cam MD CHEMISTRY ORDERABLES Performing Organization Address [facility] Co de Phone Number [facility] * Hepatitis B Core Antibody, Total (08/04/2012 10:24 AM EDT) Hepatitis B Core Antibody Negative Negative [facility] Blood specimen (specimen) 08/04/2012 10:24 AM EDT 08/04/2012 10:35 AM EDT Narrative Resulting Agency Comment Spec In Lab Alvaro Cam MD CHEMISTRY ORDERABLES Performing Organization Address City/[facility] Co de Phone Number [facility] * Cryoglobulin (08/04/2012 10:24 AM EDT) Cryoglobulin See Note [facility] Comment:Cryoglobulins negati ve at 24 and 72 hours. Blood specimen (specimen) 08/04/2012 10:24 AM EDT 08/04/2012 10:28 AM EDT Narrative Resulting Agency Comment Spec In Lab Alvaro Cam MD CHEMISTRY ORDERABLES Performing Organization Address [facility] de Phone Number [facility] * Cyclic Citrullinated Peptide (08/04/2012 10:24 AM EDT) Cyclic Citrulline Peptide <2.0 <=5.0 u/ml [facility] Blood specimen (specimen) 08/04/2012 10:24 AM EDT 08/04/2012 2:15 PM EDT Narrative Resulting Agency Comment Spec In Lab Alvaro Cam MD CHEMISTRY ORDERABLES Performing Organization Address [facility] de Phone Number [facility] * High Sensitivity CRP (08/04/2012 10:24 AM EDT) C-Reactive Protein High Sensitivity 1.4 mg/L [facility] Comment: Interpretations: 1) For cardiac risk assessment, [...] Inflammation and Cardiovascular Disease. ??Circulation 2003; 107:499-511 Ridker PM. ??Clinical applications of C-reactive protein for cardiovascular disease detection and prevention. ??Circulation 2003; 107:363-369 Blood specimen (specimen) 08/04/2012 10:24 AM EDT 08/04/2012 10:35 AM EDT Narrative Resulting Agency Comment Spec In Lab Alvaro Cam MD CHEMISTRY ORDERABLES Performing Organization Address [facility] de Phone Number [facility] * (ABNORMAL) Rheumatoid factor, quant (08/04/2012 10:24 AM EDT) Rheumatoid Factor 15(H) <=14 IU/mL [facility] Blood specimen (specimen) 08/04/2012 10:24 AM EDT 08/04/2012 10:35 AM EDT Narrative Resulting Agency Comment Spec In Lab Alvaro Cam MD CHEMISTRY ORDERABLES Performing Organization Address [facility] de Phone Number [facility] * (ABNORMAL) VIT D Total Evaluation (08/04/2012 10:24 AM EDT) Vitamin D Total 25 OH 21(L) 30 - 100 ng/mL [facility] Comment: Deficient <10 ng/mL Insufficient 10 to [...] D concentration is reported. Blood specimen (specimen) 08/04/2012 10:24 AM EDT 08/04/2012 10:35 AM EDT Narrative Resulting Agency Comment Spec In Lab Alvaro Cam MD CHEMISTRY ORDERABLES Performing Organization Address [facility] de Phone Number GHAZ[facility] ELAM * TSH (08/04/2012 10:24 AM EDT) Thyroid Stimulating Hormone 1.29 0.27 - 4.20 mcIU/mL [facility] Blood specimen (specimen) 08/04/2012 10:24 AM EDT 08/04/2012 10:35 AM EDT Narrative Resulting Agency Comment Spec In Lab Alvaro Cam MD CHEMISTRY ORDERABLES Performing Organization Address [facility] de Phone Number [facility]HAZALA ELAM * (ABNORMAL) Testosterone, total (08/04/2012 10:24 AM EDT) Testosterone 2.58(L) 2.80 - 8.00 ng/mL [facility] EL[facility] Comment: Please note: Updated Reference Ranges 01/29/2011. Reference Ranges: ? Males (7to18 years) ?Females (8-18 years) Alberto Stage ?ng/ml ? ng/ml ? 1 ? <0.03 ? <0.03 to 0.06 ? 2 ? <0.03 to 4.32 ? <0.03 to 0.10 ? 3 ? 0.65 to 7.78 ?<0.03 to 0.24 ? 4 ? 1.80 to 7.63 ?<0.03 to 0.27 ? 5 ? 1.88 to 8.82 ?<0.05 to 0.38 ?Males 18 years to adult ? Females 18 years to adult ? 2.80 to 8.00 ng/ml ?0.06 to 0.82 ng/ml Stated adult reference ranges derived from review of Gayle E170 Testosterone reagent package insert 08/16, V8 Stated pediatric reference ranges derived from review of Gayle E170 Testosterone II reagent package insert 04/20, V2. Blood specimen (specimen) 08/04/2012 10:24 AM EDT 08/04/2012 10:35 AM EDT Narrative Resulting Agency Comment Spec In Lab Alvaro Cam MD CHEMISTRY ORDERABLES [facility] * (ABNORMAL) CBC (with Diff) (08/04/2012 10:24 AM EDT) White Blood Cell 9.2 4.0 - 10.0 x10(3)/mc L [facility]ILLENNI[facility] Red Blood Cell 4.62(L) 4.63 - 6.08 x10(6)/mc L [facility] MILLENNIUM Hemoglobin 15.6 13.7 - 17.5 gm/dL [facility] MILLENNIUM Hematocrit 47.0 40.0 - 51.0 % CERNER MILLENNIUM Mean Cell Volume 101.7(H) 79.0 - 92.0 fL CERNER MILLENNIUM Mean Cell Hemoglobin 33.8(H) 25.6 - 32.2 pg CERNER MILLENNIUM Mean Cell Hemoglobin Concentration 33.2 32.0 - 36.5 gm/dL CERNER MILLENNIUM Platelet 292 145 - 370 x10(3)/mc L CERNER MILLENNIUM RDW Standard Deviation 49.9(H) 35.0 - 46.0 fL CERNER MILLENNIUM RDW coefficient of variation 13.4 10.9 - 14.4 % CERNER MILLENNIUM Mean Platelet Volume 10.2 9.0 - 12.0 fL CERNER MILLENNIUM Blood specimen (specimen) 08/04/2012 10:24 AM EDT 08/04/2012 10:35 AM EDT Narrative Resulting Agency Comment Spec In Lab Alvaro Cam MD HEMATOLOGY ORDERABLE S CERNER MILLENNIUM * Protein Electrophoresis, serum (08/04/2012 10:24 AM EDT) Total Prot Electrophoresis 6.9 6.1 - 8.0 gm/dL CERNER MILLENNIUM Albumin Electrophoresis 4.47 3.60 - 6.00 gm/dL CERNER MILLENNIUM Alpha 1 Globulin 0.19 0.10 - 0.30 gm/dL CERNER MILLENNIUM Alpha 2 Globulin 0.78 0.40 - 0.90 gm/dL CERNER MILLENNIUM Beta Globulin 0.90 0.50 - 1.00 gm/dL CERNER MILLENNIUM Gamma Globulin 0.56 0.50 - 1.30 gm/dL CERNER MILLENNIUM M1 Band None Detected None Detected gm/dL CERNER MILLENNIUM Scan See Note CERNER MILLENNIUM Comment:Please see scanned r eport in Chart Review under the [facility] Heading. Blood specimen (specimen) 08/04/2012 10:24 AM EDT 08/04/2012 10:35 AM EDT Narrative Resulting Agency Comment Spec In Lab Alvaro Cam MD CHEMISTRY ORDERABLES CERNER MILLENNIUM * CK (08/04/2012 10:24 AM EDT) Creatine Kinase 76 0 - 200 unit/L CERNER MILLENNIUM Blood specimen (specimen) 08/04/2012 10:24 AM EDT 08/04/2012 10:35 AM EDT Narrative Resulting Agency Comment Spec In Lab Alvaro Cam MD CHEMISTRY ORDERABLES Performing Organization Address [facility] Co de Phone Number CERNER MILLENNIUM * (ABNORMAL) Basic Metabolic Panel (non-fasting) (08/04/2012 10:24 AM EDT) Glucose 97 60 - 199 mg/dL CERNER MILLENNIUM Comment:Diabetes: >=200 mg/d L plus symptoms Blood Urea Nitrogen 14 10 - 20 mg/dL CERNER MILLENNIUM Creatinine 1.28 0.80 - 1.50 mg/dL CERNER MILLENNIUM Comment: Please note that the pediatric reference intervals supplied above were not validated at [facility]. Results from pediatric patients should be interpreted in conjunction to the patient's age, height and muscle mass. Sodium 141 135 - 145 mmol/L CERNER MILLENNIUM Potassium 4.7 3.5 - 5.0 mmol/L CERNER MILLENNIUM Comment: [...] mg/dL CERNER MILLENNIUM Est Glomerular Filtration Rate 59(L) >=60 CERNER MILLENNIUM Comment: The National Kidney Disease Education Program (NKDEP) has recommended all laboratories report estimated GFR (eGFR) along with plasma creatinine measurements to assist you with recognition of early kidney disease. Caveats: ??Plasma creatinine should be at steady-state (unchanged within the past week). For patients multiply eGFR by 1.2. The MDRD equation was developed using patients between the ages of 18 and 70 years. ?? The MDRD equation has not been validated for patients < 18 years of age and should not be used to assess renal function in the pediatric population. ??The MDRD eGFR equation will also overestimate the true GFR of patients above the age of 70. ??This overestimation is variable but increases with age. At present, NKDEP does NOT recommend using the MDRD equation for drug dosing purposes and pharmacists should continue to use their current dosing methods. In addition, numerical eGFR values greater than 60 ml/min/1.73 square meters should be treated as > 60, and not an exact number due to greater inaccuracies at these higher values. Per NKDEP, they classify normal renal function as any GFR >60ml/min/1.73 square meters; chronic kidney disease when GFR <60, and renal failure when GFR <15. ??This calculation may not be valid for patients with atypical muscle mass (very lean or obese), acute renal failure, and in patients with diabetic kidney disease. References: http://nkdep.nih.gov/resources/NKDEP_Suggestn4Labs_0606_508.pdf http://www.kidney.org/professionals/kls/pdf/faq_gfr.pdf Roberto K, Joshua NA, Nidia AK, Julio C TS, Jessie AD, Tavo AZAEL. Relative performance of the MDRD and CKD-EPI equations for estimating glomerular filtration rate among patients with varied clinical presentations. Clin J Am Soc Nephrol;6:1963-72. 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
[2024-08-29 23:41] LABS: PSA, Screening 0.3 ng/mL (<=4.5)
== END 2024-08-29 14:07 | disposition home or self-care (01) ==
LOC: LBO 14:07
PROVIDERS: PCP Nurse Practitioner Gerontology; Visit Provider Nurse Practitioner Gerontology
DX: R39.9 Unspecified symptoms and signs involving the genitourinary system (principal); R31.29 Other microscopic hematuria; R32 Unspecified urinary incontinence
CPT/HCPCS: 36415; 84153